=== PATIENT | male | born 1975 | race Caucasian/White ===

== ENCOUNTER 2024-02-11 20:05 | Emergency (ER) | payer MEDICARE, MEDICAID, SELFPAY ==
[2024-02-11 20:14] VITALS: BP 122/86; PULSE 109; TEMP 36.9; O2SAT 95; BMI 34.4
--- NOTE | 2024-02-11 20:26 | ED_ITS ---
HPI - Ear Problem General Chief complaint: Ear Stated complaint: ear pain Time Seen by Provider: 02/11/24 20:11 Source: patient Mode of arrival: walk-in Limitations: no limitations History of Present Illness HPI Narrative: 48-year-old male presents for a 1 to 2-day history of right ear pain. No drainage. He was swimming recently and then it started 1 or 2 days ago. No symptoms in the left ear and no fever or cough or sore throat. He is accompanied by caregiver who gives much of the history. Related Data Allergies Allergy/AdvReac Type Severity Reaction Status Date / Time Penicillins Allergy Mild Rash Verified 02/11/24 20:14 Sulfa (Sulfonamide Allergy Mild Rash Verified 02/11/24 20:14 Antibiotics) Review of Systems ROS Narrative A ten point review of systems is negative except as noted above. Exam Narrative Exam Narrative: Nurses note and vital signs reviewed and patient is not hypoxic. General: The patient appears well and in no apparent distress. Patient is resting comfortably on cart. Skin: Warm, dry, no pallor noted. There is no rash noted. Head: Normocephalic, atraumatic Eye: Normal conjunctiva, no drainage Ears, Nose, Mouth, and Throat: oral mucosa is moist. Nares patent. Left TM and external canal are normal. The right TM is normal but the external canal is swollen with drainage Cardiovascular: Regular Rate and Rhythm Respiratory: Patient is in no distress, no accessory muscle use, lungs are clear to auscultation, no wheezing, rales or rhonchi Back: non-tender GI: Soft and nontender Musculoskeletal: No joint swelling Neurological: Awake and alert Psychiatric: Cooperative Constitutional Vital Signs, click to edit/add: Last Vital Signs Temp 98.4 F 02/11/24 20:14 Pulse 109 H 02/11/24 20:14 Resp 16 02/11/24 20:14 BP 122/86 02/11/24 20:14 Pulse Ox 95 02/11/24 20:14 Course Vital Signs Vital signs: Vital Signs Temperature 98.4 F 02/11/24 20:14 Pulse Rate 109 H 02/11/24 20:14 Respiratory Rate 16 02/11/24 20:14 Blood Pressure 122/86 02/11/24 20:14 Pulse Oximetry 95 02/11/24 20:14 Temperature 98.4 F 02/11/24 20:14 Pulse Rate 109 H 02/11/24 20:14 Respiratory Rate 16 02/11/24 20:14 Blood Pressure 122/86 02/11/24 20:14 Pulse Oximetry 95 02/11/24 20:14 Medical Decision Making MDM Narrative Medical decision making narrative: My clinical impression is that he has otitis externa. He was dispensed Cortisporin. Findings are discussed with the patient and his caregiver. Differential Diagnosis Differential Diagnosis: Otitis externa otitis media Discharge Plan Discharge Stand Alone Forms: Portal Instructions Chief Complaint: Ear Clinical Impression: Otitis externa Patient Disposition: Home, Self-Care Time of Disposition Decision: 20:23 Condition: Good Mode of Transportation: Private Vehicle Print Language: Kiswahili Instructions: Swimmer's Ear (ED) Additional Instructions: Cortisporin dispensed from the hospital. 3 drops into right ear 3 times a day. Referrals: Physician,Non-Staff, MD [Primary Care Provider] - 1 week
[2024-02-11] MEDS: NEOMYCIN/POLYMYXIN B/HYDROCORTISONE OTIC SOLUTION 200 DROP/10 ML BOTTLE OT (20:34)
== END 2024-02-11 20:38 | disposition home or self-care (01) ==
PROVIDERS: Emergency Provider Emergency Medicine
DX: H60.91 Unspecified otitis externa, right ear (principal)
CPT/HCPCS: 99282

== ENCOUNTER 2024-08-22 17:22 | Emergency (ER) | payer MEDICARE, MEDICAID, SELFPAY ==
[2024-08-22 17:31] VITALS: BP 116/88; PULSE 88; TEMP 36.6; O2SAT 98; BMI 31.1
--- NOTE | 2024-08-22 17:48 | ECG_ITS ---
The [facility] Test Date: 2024-08-22 Pat Name: LAXMI TORRES Department: Room: - Gender: Male [employer]: : 1975 Requested By: Order Number: [id number] Reading MD: TARA JIMENEZ Measurements Intervals [place] Rate: 100 P: 35 NC: 206 QRS: 82 QRSD: 98 T: -13 QT: 332 QTc: 389 Interpretive Statements 1120 Sinus tachycardia 2440 Incomplete right bundle branch block [address] depression 7500 Abnormal QRS-T angle 8102 Low QRS voltage in chest leads 9150 abnormal ECG No previous ECG available for comparison Electronically Signed On 08-23-2024 7:40:44 EST by TARA JIMENEZ
--- NOTE | 2024-08-22 17:48 | XR_ITS ---
The [address] [address] Patient Name: LAXMI TORRES MRN: [id number] date: 1975 Sex: M Assigned Patient Location: ED.MAIN Current Patient Location: Accession/Order Number: [id number] Exam Date: 08/22/2024 18:19 Report Date: 08/22/2024 19:39 At the request of: SALMA CORNEJO Procedure: XR shoulder LT min 2V PROCEDURE: XR shoulder LT min 2V HISTORY: pain to left shoulder COMPARISON: None. FINDINGS: BONES:No fracture, acute abnormality, or significant arthropathy. SOFT TISSUES:No visible soft tissue swelling. EFFUSION:None visible. OTHER: Negative. XR/XR shoulder LT min 2V IMPRESSION: 1. No acute bone abnormality or significant degenerative changes. Electronically authenticated by: DIONNE SMITH Date: 08/22/2024 19:39
[2024-08-22 17:54] VITALS: PULSE 105
--- NOTE | 2024-08-22 18:20 | ED_ITS ---
HPI HPI - Extremity Injury (Upper) General Chief Complaint: Extremity Injury, Upper Stated Complaint: Upper Pain Time Seen by Provider: 08/22/24 18:10 Source: patient Mode of arrival: ambulance Limitations: no limitations History of Present Illness HPI narrative: 48-year-old male presents to the ER for evaluation of left shoulder pain pain present for 3 days he feels like it is into the bone. He denies any fevers or chills and there is been no recent injury reported. Patient lives in [place] with a roommate he denies any injury he has a care provider with him today at the bedside. MD complaint: injury to: Reports left and shoulder Other Extremity Injury: Left: shoulder Other injuries: Reports none Hand dominance: right Place: Reports home Severity: moderate Relieving factors: Reports none Exacerbating factors: Reports movement of extremity Associated symptoms: Reports denies other symptoms Related Data Home Medications ?Medication ?Instructions ?Recorded ?Confirmed aspirin 81 mg tablet,delayed 81 mg PO DAILY 02/11/24 02/11/24 release benztropine 1 mg tablet 1 mg PO BID 02/11/24 02/11/24 cetirizine 10 mg tablet 10 mg PO DAILY 02/11/24 02/11/24 divalproex 500 mg tablet,delayed 500 mg PO Q12H 02/11/24 02/11/24 release fenofibrate 54 mg tablet 54 mg PO DAILY 02/11/24 02/11/24 fluticasone propionate 50 2 spray intranasal DAILY 02/11/24 02/11/24 mcg/actuation nasal spray,suspension gabapentin 600 mg tablet 600 mg PO Q8H 02/11/24 02/11/24 metformin 500 mg tablet,extended 500 mg PO BID 02/11/24 02/11/24 release 24 hr metoprolol succinate 50 mg 75 mg PO DAILY 02/11/24 02/11/24 tablet,extended release 24 hr montelukast 10 mg tablet 10 mg PO . 02/11/24 02/11/24 omeprazole 20 mg capsule,delayed 20 mg PO BID 02/11/24 02/11/24 release paliperidone 3 mg tablet,extended 3 mg PO DAILY 02/11/24 02/11/24 release 24 hr quetiapine 25 mg tablet 50 mg PO .hs 02/11/24 02/11/24 quetiapine 300 mg tablet 300 mg PO . 02/11/24 02/11/24 sertraline 100 mg tablet 100 mg PO DAILY 02/11/24 02/11/24 simvastatin 20 mg tablet 20 mg PO . 02/11/24 02/11/24 Previous Rx's ?Medication ?Instructions ?Recorded methylprednisolone 4 mg tablets in 4 mg PO DAILY #21 ea 08/22/24 a dose pack (Medrol (Oli)) Allergies Allergy/AdvReac Type Severity Reaction Status Date / Time Penicillins Allergy Mild Rash Verified 02/11/24 20:14 Sulfa (Sulfonamide Allergy Mild Rash Verified 02/11/24 20:14 Antibiotics) Opioid HPI Opioid Management Most Recent Pain and Opioid Data: Last Pain Scale 7 08/22/24 17:54 08/22/24 Last ED Pain Assessment 08/22/24 17:54 Review of Systems ROS Constitutional Denies: fever or chills Eyes Denies: change in vision Ears, nose, mouth, and throat Denies: throat pain or neck pain Cardiovascular Denies: chest pain Respiratory Denies: shortness of breath Gastrointestinal Denies: abdominal pain Musculoskeletal Reports: joint pain (left shoulder) Neurological Denies: headache Hematologic/Lymphatic Denies: easy bruising PFSH PFSH Social History Little interest or pleasure in doing things: not at all Feeling down, depressed, or hopeless: not at all Exam Narrative Exam Narrative: Nurse's notes and vital signs reviewed. Patient is not hypoxic. General: The patient appears well and in no apparent distress. Patient is resting comfortably on cart. Skin: Warm, dry, no pallor noted. Head: Normocephalic, atraumatic Eye: Normal conjunctiva Respiratory: Patient is in no distress Musculoskeletal: The left shoulder shows no obvious deformity. There was no swelling noted. The patient had limited ROM due to pain. With pain localized to AC joint. The patient had tenderness noted at the AC joint and referred to lateral deltoid on abduction. The patient had no tenderness in the elbow, wrist or hand. + cross arm sign. Pulses are intact at brachial and radial 2+. There was no deficit at the elbow or wrist. The patient has normal capillary refill to all distal digits. The patient has no evidence of cyanosis or mottling. The patient is able to flex and extend all digits without difficulty. Full passive and active range of motion painful on end range of motion strength testing shows rotator cuff and deltoid 5/5 but pain present on loading Neurological: A&O x4, normal sensory, normal motor Psychiatric: Cooperative Constitutional Vital Signs, click to edit/add: Last Vital Signs Temp 97.8 F 08/22/24 17:31 Pulse 105 H 08/22/24 17:54 Resp 18 08/22/24 17:31 BP 116/88 08/22/24 17:31 Pulse Ox 98 08/22/24 17:31 O2 Del Method Room Air 08/22/24 17:31 Course Vital Signs Vital signs: Vital Signs Temperature 97.8 F 08/22/24 17:31 Pulse Rate 88 08/22/24 17:31 Respiratory Rate 18 08/22/24 17:31 Blood Pressure 116/88 08/22/24 17:31 Pulse Oximetry 98 08/22/24 17:31 Oxygen Delivery Method Room Air 08/22/24 17:31 Temperature 97.8 F 08/22/24 17:31 Pulse Rate 105 H 08/22/24 17:54 Respiratory Rate 18 08/22/24 17:31 Blood Pressure 116/88 08/22/24 17:31 Pulse Oximetry 98 08/22/24 17:31 Oxygen Delivery Method Room Air 08/22/24 17:31 MDM - Extremity Injury (Upper) MDM Narrative Medical decision making narrative: Presents with left shoulder pain denies injury x-ray discussed no evidence of fracture but mild to moderate AC joint arthritis noted mild impingement on exam with referred pain does not describe any cervical radicular symptoms patient agreeable to IM Toradol shot for inflammation, ice and will start a Medrol Dosepak outpatient pending follow-up with orthopedics if symptoms or not improving patient and care provider verbalized understanding of treatment plan and had no further concerns or questions The patient is to followup with primary care physician/ orthopedics in next 3-5 days or to return to the emergency department should any of the signs or symptoms worsen or new symptoms develop. Patient had questions answered. The patient agrees with the following Diagnosis and Treatment plan and the patient will be discharged home. ECG Data Attestation: I personally reviewed and interpreted this ECG as follows: Interpretation: EKG interpretation: Emergency Department physician interpretation, normal sinus rhythm 100bpm , no ectopy, no ST segment elevation, . incomplete right bundle branch block Discharge Plan Discharge Chief Complaint: Extremity Injury, Upper Clinical Impression: Acute pain of left shoulder, Arthritis of left acromioclavicular joint Patient Disposition: Home, Self-Care Time of Disposition Decision: 18:38 Condition: Good Prescriptions / Home Meds: New methylprednisolone [Medrol (Oli)] 4 mg tablets,dose pack 4 mg PO DAILY Qty: 21 0RF Rx Instructions: take as directed No Action aspirin 81 mg tablet,delayed release (DR/EC) 81 mg PO DAILY benztropine 1 mg tablet 1 mg PO BID cetirizine 10 mg tablet 10 mg PO DAILY divalproex 500 mg tablet,delayed release (DR/EC) 500 mg PO Q12H fenofibrate 54 mg tablet 54 mg PO DAILY fluticasone propionate 50 mcg/actuation spray,suspension 2 spray INTRANASAL DAILY gabapentin 600 mg tablet 600 mg PO Q8H metformin 500 mg tablet extended release 24 hr 500 mg PO BID metoprolol succinate 50 mg tablet extended release 24 hr 75 mg PO DAILY montelukast 10 mg tablet 10 mg PO .hs omeprazole 20 mg capsule,delayed release(DR/EC) 20 mg PO BID paliperidone 3 mg tablet extended release 24 hr 3 mg PO DAILY quetiapine 25 mg tablet 50 mg PO .hs quetiapine 300 mg tablet 300 mg PO .hs sertraline 100 mg tablet 100 mg PO DAILY simvastatin 20 mg tablet 20 mg PO .hs Print Language: Georgian Instructions: Shoulder Pain (ED) Additional Instructions: Recommend ice to left shoulder 20 minutes on 20 minutes off for 1 hour 3 times a day contact orthopedics if not improving with Medrol Dosepak for reevaluation Referrals: Reina Underwood ND [Primary Care Provider] - 1 week Krzysztof Yap MD [Physician] - As needed
[2024-08-22] MEDS: KETOROLAC TROMETHAMINE 60 MG/2 ML VIAL IM (19:05)
== END 2024-08-22 19:15 | disposition home or self-care (01) ==
PROVIDERS: Emergency Provider Emergency Medicine; PCP Student in an Organized Health Care Education/Training Program
DX: M19.012 Primary osteoarthritis, left shoulder (principal); M25.512 Pain in left shoulder
CPT/HCPCS: 73030; 93005; 96372; 99285; J1885

== ENCOUNTER 2024-09-25 19:33 | Emergency (ER) | payer MEDICARE, MEDICAID, SELFPAY ==
[2024-09-25 19:38] VITALS: BP 110/89; PULSE 103; TEMP 36.9; O2SAT 98; BMI 30.8
--- OUTSIDE RECORDS SUMMARY | 2024-09-25 19:39 | XMS_ITS | CCD ---
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 Name Role Phone Provider, None Unavailable Unavailable Carolyn Tipton Unavailable Unavailable Carolyn Tipton Unavailable Unavailable SHRADDHA HAWK Admitting Unavaila SHRADDHA Delatorre Attending Unavaila ARCELIA Mauricio Referring Unavailable [facility] Primary Care Unavailable SELF, REFERRED Referring Unavailable [facility] Primary Care Unavailable KATHERINE WHITTEN Admitting Unavailable KATHERINE WHITTEN Attending Unavailable SELF, REFERRED Referring Unavailable [facility] Primary Care Unavailable STEENHOFF, LAXMI Attending Unavailable STEENHOFF, LAXMI Admitting Unavailable SELF, REFERRED Referring Unavailable [facility] Primary Care Unavailable TITUS GARCIA Admitting Unavailable TITUS GARCIA Attending Unavailable SELF, REFERRED Referring Unavailable [facility] Primary Care Unavailable YORDAN CROWLEY Attending Unavailable STEENHOFF, LAXMI Admitting Unavailable [facility] Primary Care Unavailable [facility] Referring Unavailable Ovitt, Enedina Admitting Unavailable Ovitt, Enedina Attending Unavailable [facility] Primary Care Unavailable GLORIA WASHINGTON Attending Unavailable MISC, DR RIVERA Attending Unavailable MISC, DR RIVERA Consulting Unavailable MISC, DR RIVERA Primary Care Unavailable MISC, DR RIVERA Admitting Unavailable MISC, DR RIVERA Attending Unavailable MISC, DR RIVERA Consulting Unavailable MISC, DR RIEVRA Primary Care Unavailable MISC, DR RIVERA Admitting Unavailable MISC, DR RIVERA Primary Care Unavailable TYLOR BEST Attending Unavailable TYLOR BEST Consulting Unavailable TYLOR BEST Admitting Unavailable Kj Justin BAUTISTA Primary Care Provider OVITT, ENEDINA Referring Unavailable OVITT, ENEDINA Referring Unavailable OVITT, ENEDINA Referring Unavailable OVITT, ENEDINA Attending Unavailable FATUMA REESE Attending Unavailable DIONNE BARLOW Attending Unavailable ELHAM SHAFFER Attending Unavailable KJ, MUHAMID M Referring Unavailable KJ, MUHAMID M Primary Care Unavailable KJ, MUHAMID M Primary Care Unavailable EDY VALENZUELA Attending Unavailable KJ, MUHAMID M Primary Care Unavailable KJ, MUHAMID M Primary Care Unavailable KJ, MUHAMID M Attending Unavailable KJ, MUHAMID M Referring Unavailable KJ, MUHAMID M Primary Care Unavailable KJ, MUHAMID M Referring Unavailable KJ, MUHAMID M Primary Care Unavailable KJ, MUHAMID M Attending Unavailable KJ, MUHAMID M Referring Unavailable KJ, MUHAMID M Primary Care Unavailable KJ, MUHAMID M Attending Unavailable KJ, MUHAMID M Referring Unavailable KJ, MUHAMID M Primary Care Unavailable KJ, MUHAMID M Attending Unavailable KJ, MUHAMID M Referring Unavailable KJ, MUHAMID M Primary Care Unavailable Kj Justin BAUTISTA Primary Care Provider [phone] Kj Justin BAUTISTA Primary Care Provider [phone] GUILLAUME STEVE Attending Unavailable KJ, MUHAMID M Referring Unavailable KJ, MUHAMID M Primary Care Unavailable KJ, MUHAMID M Primary Care Unavailable LETICIA JARAMILLO Attending Unavailable GUILLAUME STEVE Attending Unavailable KJ, MUHAMID M Referring Unavailable KJ, MUHAMID M Primary Care Unavailable MAXINE PATEL Attending Unavailable KJ, MUHAMID M Referring Unavailable KJ, MUHAMID M Primary Care Unavailable GUILLAUME STEVE Attending Unavailable KJ, MUHAMID M Referring Unavailable KJ, MUHAMID M Primary Care Unavailable KJ, MUHAMID M Primary Care Unavailable TITUS PRITCHETT Attending Unavailable TITUS PRITCHETT Referring Unavailable KJ, MUHAMID M Primary Care Unavailable TITUS PRITCHETT Admitting Unavailable TITUS PRITCHETT Attending Unavailable KJ, MUHAMID M Referring Unavailable FLORY YEBOAH Attending Unavailable KJ, MUHAMID M Primary Care Unavailable GUILLAUME STEVE Attending Unavailable KJ, MUHAMID M Referring Unavailable KJ, MUHAMID M Primary Care Unavailable KJ, MUHAMID M Primary Care Unavailable MARY FULTON Attending Unavailable MARY FULTON Attending Unavailable MARY FULTON Referring Unavailable KJ, MUHAMID M Primary Care Unavailable TITUS PRITCHETT Referring Unavailable KJ, MUHAMID M Primary Care Unavailable TITUS PRITCHETT Referring Unavailable KJ, MUHAMID M Primary Care Unavailable TITUS PRITCHETT Referring Unavailable KJ, MUHAMID M Primary Care Unavailable TITUS PRITCHETT Admitting Unavailable TITUS PRITCHETT Attending Unavailable KJ, MUHAMID M Primary Care Unavailable GUILLAUME STEVE Attending Unavailable KJ, MUHAMID M Referring Unavailable KJ, MUHAMID M Primary Care Unavailable CINDA STEVE Attending Unavailable KJ, MUHAMID M Referring Unavailable KJ, MUHAMID M Primary Care Unavailable CINDA STEVE Attending Unavailable KJ, MUHAMID M Referring Unavailable KJ, MUHAMID M Primary Care Unavailable KJ, MUHAMID M Referring Unavailable KJ, MUHAMID M Primary Care Unavailable ANH BOTELLO Referring Unavailable KJ, MUHAMID M Primary Care Unavailable TITUS PRITCHETT Admitting Unavailable TITUS PRITCHETT Attending Unavailable KJ, MUHAMID M Primary Care Unavailable TITUS PRITCHETT Attending Unavailable TITUS PRITCHETT Referring Unavailable KJ, MUHAMID M Primary Care Unavailable MITCHELL PERALES Attending Unavailable KJ, MUHAMID M Primary Care Unavailable MYLA RM Attending Unavailable KJ, MUHAMID M Referring Unavailable KJ, MUHAMID M Primary Care Unavailable MYLA RM Referring Unavailable KJ, MUHAMID M Primary Care Unavailable GUNNAR CORRALES Referring Unavailable KJ, MUHAMID M Primary Care Unavailable GUILLAUME STEVE Attending Unavailable KJ, MUHAMID M Referring Unavailable KJ, MUHAMID M Primary Care Unavailable MYLA RM Referring Unavailable KJ, MUHAMID M Primary Care Unavailable Allergies Allergy Classification Reported Allergen(s) Allergy Type Date of Onset Reaction(s) Facility (20 sources) Penicillins; Translations: [penicillins] Propensity to adverse reactions to drug (disorder) 0 Hives, Other, Unknown [facility] Repository (1 source) Sulfonamides (Antibiotic); Translations: [sulfa drugs] Propensity to adverse reactions to drug (disorder) [facility] Repository (20 sources) Sulfonamides (Antibiotic); Translations: [Sulfa (Sulfonamide Antibiotics)] Propensity to adverse reactions (disorder) 0 [facility] (1 source) Sulfonamides (Antibiotic) Drug Allergy 4 [facility] Medications Current Medications Medication Drug Class(es) Dates Sig (Normalized) Sig (Original) acetaminophen 500 mg oral tablet (20 sources) Start: 11-06-2023 End: 11-06-2023 take 1 tablet by mouth every six hours as needed for pain and headache acetaminophen (TYLENOL EXTRA STRENGTH) 500 mg tablet Take 1 tablet (500 mg total) by mouth every 6 (six) hours as needed for pain or headaches. 90 tablet 2 11/06/2023 Active take 1 tablet by castillo th every six hours as needed for pain and headache acetaminophen (TYLENOL) 500 mg tablet Ta ke 1 tablet (500 mg total) by mouth every 6 (six) hours as needed for pain or headaches. Active [id number] 200 actuat albuterol 0.09 mg/actuat metered dose inhaler (20 sources) beta2-Adrenergic Agonist Start: 01-25-2024 take 2 puff(s) by inhalation every six hours as needed for wheezing albuterol (PROVENTIL HFA;VENTOLIN HFA) 90 mcg/actuation inhaler Inhale 2 puffs every 6 (six) hours as needed for wheezing. 18 g 2 01/25/2024 Active Start: 10-08-2023 albuterol (PRO VENTIL,VENTOLIN) 2.5 mg /3 mL (0.083 %) nebulizer solution 10/08/2023 Active End: 01-24-2024 take 2 puff(s) by inhalation every six hours as needed for wheezing albuterol (PROVENTIL HFA;VENTOLIN HFA) 90 mcg/actuation inhaler Inhale 2 puffs every 6 (six) hours as needed for wheezing. 01/24/2024 Discontinued (Reorder) ALPRAZolam 0.5 mg oral tablet (20 sources) Benzodiazepine Start: 08-23-2023 ALPRAZolam (XANAX) 0.5 mg tablet Indications: Anxiety attack Take 1 tablet (0.5 mg total) by mouth once as needed for sleep (MRI/claustrophobia anxiety management) for up to 2 doses. May repeat in 1 mins if needed 2 tablet 08/23/2023 Active aspirin 81 mg delayed release oral tablet (20 sources) Platelet Aggregation Inhibitor, Nonsteroidal Anti-inflammatory Drug Start: 08-23-2023 End: 04-07-2024 take 1 tablet by mouth every week in the morning aspirin 81 mg Take 1 tablet (81 mg total) by mouth in the morning. Hold 1 week prior to surgery scheduled on 03/11/2023 per cardiology. 90 tablet 2 04/07/2024 Active benztropine mesylate 1 mg oral tablet (20 sources) Anticholinergic, Antihistamine Start: 07-29-2023 End: 08-15-2023 take 1 tablet by mouth in the morning, then take 1 tablet by mouth at bedtime benztropine (COGENTIN) 1 mg tablet Take 1 tablet (1 mg total) by mouth in the morning and 1 tablet (1 mg total) before bedtime. 180 tablet 3 08/15/2023 Active Start: 04-19-2023 End: 07-27-2023 take 1 tablet by mouth in the morning, then take 1 tablet by mouth at bedtime benztropine (COGENTIN) 1 mg tablet Take 1 tablet (1 mg total) by mouth in the morning and 1 tablet (1 mg total) before bedtime. 180 tablet 3 04/19/2023 07/27/2023 Discontinued (Reorder) bismuth subsalicylate 17.5 mg/ml oral suspension (20 sources) Bismuth Start: 04-19-2023 End: 05-11-2024 take 15 mL by mouth every six hours as needed for gastroesophageal reflux disease bismuth subsalicylate (PEPTO BISMOL) 262 mg/15 mL suspension Take 15 mL by mouth every 6 (six) hours as needed for indigestion or heartburn. 360 mL 2 05/11/2024 Active calcium carbonate 500 mg chewable tablet (20 sources) Start: 04-19-2023 End: 09-07-2024 calcium carbonate (TUMS) 200 mg elemental (500 mg) chewable tablet Chew 1 tablet (200 mg total) and swallow in the morning. 90 tablet 3 09/07/2024 Active Calcium Carbonate Antacid (CALCIUM CARBONATE PO) (1 source) Calcium Carbonat e Antacid (CALCIUM CARBONATE PO) Take by mouth 0 Active cetirizine hydrochloride 10 mg oral tablet (20 sources) Histamine-1 Receptor Antagonist Start: 07-29-2023 End: 07-24-2024 take 1 tablet by mouth in the morning cetirizine (ZyrTEC) 10 mg tablet Take 1 tablet (10 mg total) by mouth in the morning. 90 tablet 3 07/24/2024 Active Start: 04-19-2023 End: 07-27-2023 take 1 tablet by mouth in the morning cetirizine (ZyrTEC) 10 mg tablet Take 1 tablet (10 mg total) by mouth in the morning. 90 tablet 3 04/19/2023 07/27/2023 Discontinued (Reorder) cocoa butter 0.884 mg/mg / phenylephrine hydrochloride 0.0025 mg/mg rectal suppository (9 sources) alpha-1 Adrenergic Agonist Start: 06-30-2024 phenylephrine HCl-cocoa butter (PREPARATION H,PE,CB,) 0.25-88.44 % suppository Insert 1 suppository into the rectum every 6 (six) hours as needed (rectal pain or hemorrhoid bleeding). 24 suppository 06/30/2024 Active diphenhydrAMINE hydrochloride 25 mg oral capsule (20 sources) Histamine-1 Receptor Antagonist Start: 05-08-2023 End: 03-09-2024 take 1 capsule by mouth every six hours as needed for headache diphenhydrAMINE (BENADRYL) 25 mg capsule Indications: Primary cough headache Take 1 capsule (25 mg total) by mouth every 6 (six) hours as needed for sleep (headache). 30 capsule 03/09/2024 Active diphenhydrAMINE (BENADryl) 25 MG tablet Take 25 mg by mouth 0 Active docusate sodium 100 mg oral capsule (20 sources) take 1 capsule by mouth once daily as needed for constipation docusate sodium (COLACE) 100 mg capsule Take 1 capsule (100 mg total) by mouth daily as needed for constipation. Active fenofibrate 54 mg oral tablet (20 sources) Peroxisome Proliferator Receptor alpha Agonist Start: 2023 End: 2023 take 1 tablet by mouth in the morning fenofibrate (LOFIBRA) 54 mg tablet Indications: Hypertriglyceridemia Take 1 tablet (54 mg total) by mouth in the morning. 30 tablet 5 06/12/2024 Active fluticasone propionate 0.05 mg/actuat metered dose nasal spray (20 sources) Corticosteroid Start: 2022 End: 2024 take 2 spray(s) nasal route in the morning fluticasone propionate (FLONASE) 50 mcg/actuation nasal spray Indications: allergic conjunctivitis , allergic rhinitis Administer 2 sprays into each nostril in the morning. Indications: allergic conjunctivitis, inflammation of the nose due to an allergy. 15.8 mL 2 09/07/2024 Active fluticasone (Wiliam nase) 50 MCG/ACT nasal spray 1 (one) time each day at the same time 0 Active gabapentin 600 mg oral tablet (20 sources) Anti-epileptic Agent Start: 12-19-2023 End: 07-28-2024 take 1 tablet by mouth in the morning, then take 1 tablet by mouth at bedtime gabapentin (NEURONTIN) 600 mg tablet Indications: Disc displacement, lumbar Take 1 tablet (600 mg total) by mouth in the morning and 1 tablet (600 mg total) before bedtime. 60 tablet 06/23/2024 Active Start: 07-29-2023 End: 12-11-2023 take 1 tablet by mouth three times daily gabapentin (NEURONTIN) 600 mg tablet Indications: Disc displacement, lumbar Take 1 tablet (600 mg total) by mouth 3 (three) times a day. 90 tablet 10/24/2023 Active Start: 06-26-2023 End: 07-27-2023 take 1 tablet by mouth three times daily gabapentin (NEURONTIN) 600 mg tablet Indications: Disc displacement, lumbar Take 1 tablet (600 mg total) by mouth 3 (three) times a day. 90 tablet 0 06/26/2023 07/27/2023 Discontinued (Reorder) ketoconazole 20 mg/ml medicated shampoo (20 sources) Azole Antifungal ketoconazole (NIZORAL) 2 % shampoo Apply 1 Application topically 2 (two) times a week. Apply to damp skin, lather, leave on 5 minutes, and rinse Active levoFLOXacin 500 mg oral tablet (3 sources) Quinolone Antimicrobial Start: 08-07-19 End: 08-12-19 take 1 tablet by mouth in the morning, then take 1 tablet by mouth at bedtime levoFLOXacin (LEVAQUIN) 500 mg tablet Take 1 tablet (500 mg total) by mouth in the morning and 1 tablet (500 mg total) before bedtime. Do all this for 5 days. 10 tablet 08/07/2024 08/12/2024 Active Start: 04-10-2024 End: 04-15-2024 take 1 tablet by mouth in the morning, then take 1 tablet by mouth at bedtime levoFLOXacin (LEVAQUIN) 500 mg tablet Indications: Prophylactic antibiotic Take 1 tablet (500 mg total) by mouth in the morning and 1 tablet (500 mg total) before bedtime. Do all this for 5 days. 10 tablet 04/10/2024 04/15/2024 Active 3 ml liraglutide 6 mg/ml pen injector (20 sources) GLP-1 Receptor Agonist Start: 08-15-2023 Victoza 18 MG/3ML injection Start: 07-29-2023 End: 06-29-2024 liraglutide (VICTOZA 3-NITESH) 0.6 mg/0.1 mL (18 mg/3 mL) pen injector Indications: Type 2 diabetes mellitus without complication, without long-term current use of insulin ([facility]) Inject 0.3 mL (1.8 mg total) under the skin in the morning. 9 mL 3 06/29/2024 Active Start: 06-26-2023 End: 07-27-2023 liraglutide (VICTOZA 3-NITESH) 0.6 mg/0.1 mL (18 mg/3 mL) pen injector Indications: Type 2 diabetes mellitus without complication, without long-term current use of insulin ([facility]) Inject 0.3 mL (1.8 mg total) under the skin in the morning. 9 mL 3 06/26/2023 07/27/2023 Discontinued (Reorder) meclizine hydrochloride 25 mg chewable tablet (20 sources) Antiemetic meclizine (ANTIV ERT) 25 mg tablet Chew 1 tablet (25 mg total) and swallow 3 (three) times a day as needed for dizziness. Active Melatonin (20 sources) melatonin 1 mg tablet,chewable Chew and swallow as needed. Active 24 hr metFORMIN hydrochloride 500 mg extended release oral tablet (20 sources) Biguanide Start: 10-24-2023 End: 10-23-2023 take 1 tablet by mouth every twenty-four hours in the morning, then take 1 tablet by mouth at bedtime metFORMIN XR (GLUCOPHAGE XR) 500 mg 24 hr tablet Take 1 tablet (500 mg total) by mouth in the morning and 1 tablet (500 mg total) before bedtime. 180 tablet 3 10/24/2023 Active Start: 10-24-2023 take 1 tablet by castillo th every twenty-four hours in the morning, then take 1 tablet by mouth at bedtime metFORMIN XR (GLUCOPHAGE XR) 500 mg 24 hr tablet Take 1 tablet (500 mg total) by mouth in the morning and 1 tablet (500 mg total) before bedtime. 180 tablet 3 10/24/2023 Active methocarbamol 500 mg oral tablet (20 sources) Muscle Relaxant Start: 07-29-2023 End: 08-15-2023 methocarbamoL (ROBAXIN) 500 mg tablet Take 1 tablet (500 mg total) by mouth as needed for muscle spasms. Unsure on dose 90 tablet 2 08/15/2023 Active Start: 04-19-2023 End: 07-27-2023 methocarbamoL (ROBAXIN) 500 mg tablet Take 1 tablet (500 mg total) by mouth as needed for muscle spasms. Unsure on dose 90 tablet 2 04/19/2023 07/27/2023 Discontinued (Reorder) metoprolol tartrate 25 mg oral tablet (20 sources) beta-Adrenergic Simeon Start: 06-05-2023 metopr olol tartrate (LOPRESSOR) 25 mg tablet Indications: Exertional angina (CMS-HCC) Take 1 tablet 12 hours and 1 tablet 2 hours prior to the scheduled CT scan. Take additional 2 tablets with you to CT scan in case needed 4 tablet 06/05/2023 Active take 1.5 tablets by mouth every twenty-four hours in the morning metoprolol succinate XL (TOPROL XL) 50 m g 24 hr tablet Take 1.5 tablets (75 mg total) by mouth in the morning. Active take 1 tablet by castillo th every twenty-four hours in the morning metoprolol succinate XL (TOPROL XL) 50 m g 24 hr tablet Take 1 tablet (50 mg total) by mouth in the morning. Active montelukast 10 mg oral tablet (20 sources) Leukotriene Receptor Antagonist Start: 07-29-2023 End: 06-23-2024 take 1 tablet by mouth once daily montelukast (SINGULAIR) 10 mg tablet Take 1 tablet (10 mg total) by mouth nightly. 90 tablet 06/23/2024 Active Start: 04-19-2023 End: 07-27-2023 take 1 tablet by mouth once daily montelukast (SINGULAIR) 10 mg tablet Take 1 tablet (10 mg total) by mouth nightly. 90 tablet 0 04/19/2023 07/27/2023 Discontinued (Reorder) naproxen 500 mg oral tablet (20 sources) Nonsteroidal Anti-inflammatory Drug Start: 08-17-2023 take 1 tablet by mouth in the morning, then take 1 tablet by mouth at mealtime naproxen (NAPROSYN) 500 mg tablet Take 1 tablet (500 mg total) by mouth in the morning and 1 tablet (500 mg total) in the evening. Take with meals. 30 tablet 08/17/2023 Active omeprazole 20 mg delayed release oral capsule (20 sources) Proton Pump Inhibitor Start: 07-29-2023 End: 04-28-2024 take 1 capsule by mouth twice daily as needed for pain omeprazole (PriLOSEC) 20 mg capsule Take 1 capsule (20 mg total) by mouth 2 (two) times a day as needed (pain). 90 capsule 2 04/28/2024 Active Start: 04-19-2023 End: 07-27-2023 take 1 capsule by mouth in the morning omeprazole (PriLOSEC) 20 mg capsule Take 1 capsule (20 mg total) by mouth in the morning. 90 capsule 0 04/19/2023 07/27/2023 Discontinued (Reorder) omeprazole (PriL OSEC) [address] capsule 20 mg 1 (one) time each day at the same time 0 Active ondansetron 4 mg disintegrating oral tablet (20 sources) Serotonin-3 Receptor Antagonist Start: 03-26-2024 take 1 tablet by mouth every eight hours as needed for nausea and vomiting ondansetron ODT (ZOFRAN ODT) 4 mg disintegrating tablet Dissolve 1 tablet (4 mg total) on tongue every 8 (eight) hours as needed for nausea or vomiting for up to 10 doses. 10 tablet 03/26/2024 Active Start: 07-29-2023 End: 03-26-2024 ondansetron ODT (ZOFRAN ODT) 4 mg disintegrating tablet Dissolve 1 tablet (4 mg total) on tongue 3 (three) times a day as needed for nausea for up to 3 doses. 3 tablet 08/15/2023 03/26/2024 Discontinued Start: 04-19-2023 End: 07-27-2023 ondansetron ODT (ZOFRAN ODT) 4 mg disintegrating tablet Dissolve 1 tablet (4 mg total) on tongue 3 (three) times a day as needed for nausea for up to 3 doses. 3 tablet 0 04/19/2023 07/27/2023 Discontinued (Reorder) 24 hr paliperidone 3 mg extended release oral tablet (20 sources) Atypical Antipsychotic Start: 07-29-2023 End: 07-30-2024 take 1 tablet by mouth once daily paliperidone (INVEGA) 3 mg 24 hr tablet Take 1 tablet (3 mg total) by mouth nightly. 90 tablet 10/24/2023 Active Start: 04-19-2023 End: 07-27-2023 take 1 tablet by mouth once daily paliperidone (INVEGA) 3 mg 24 hr tablet Take 1 tablet (3 mg total) by mouth nightly. 90 tablet 0 04/19/2023 07/27/2023 Discontinued (Reorder) QUEtiapine 50 mg oral tablet (20 sources) Atypical Antipsychotic Start: 08-23-2023 End: 08-22-2023 take 1 tablet by mouth once daily QUEtiapine (SEROquel) 50 mg tablet Take 1 tablet (50 mg total) by mouth nightly. 90 tablet 08/23/2023 Active Start: 08-23-2023 End: 08-22-2023 take 1 tablet by mouth once daily QUEtiapine (SEROquel) 50 mg tablet Take 1 tablet (50 mg total) by mouth nightly. 90 tablet 08/23/2023 Active Start: 08-23-2023 take 1 tablet by castillo th once daily QUEtiapine (SEROquel) 50 mg tablet Take 1 tablet (50 mg total) by mouth nightly. 90 tablet 08/23/2023 Active Start: 07-29-2023 End: 08-15-2023 take 1 tablet by mouth once daily QUEtiapine (SEROquel) 300 mg tablet Take 1 tablet (300 mg total) by mouth nightly. Takes with 25mg tablet 90 tablet 08/15/2023 Active Start: 04-19-2023 End: 07-27-2023 take 1 tablet by mouth once daily QUEtiapine (SEROquel) 300 mg tablet Take 1 tablet (300 mg total) by mouth nightly. Takes with 25mg tablet 90 tablet 0 04/19/2023 07/27/2023 Discontinued (Reorder) sertraline 100 mg oral tablet (20 sources) Serotonin Reuptake Inhibitor Start: 07-29-2023 End: 10-23-2023 take 1 tablet by mouth in the morning sertraline (ZOLOFT) 100 mg tablet Take 1 tablet (100 mg total) by mouth in the morning. 90 tablet 10/24/2023 Active Start: 04-19-2023 End: 07-27-2023 take 1 tablet by mouth in the morning sertraline (ZOLOFT) 100 mg tablet Take 1 tablet (100 mg total) by mouth in the morning. 90 tablet 0 04/19/2023 07/27/2023 Discontinued (Reorder) simvastatin 20 mg oral tablet (20 sources) HMG-CoA Reductase Inhibitor Start: 07-29-2023 End: 11-20-2023 take 1 tablet by mouth once daily simvastatin (ZOCOR) 20 mg tablet Take 1 tablet (20 mg total) by mouth nightly for 90 days. 90 tablet 1 08/22/2023 11/20/2023 Active Start: 04-29-2023 End: 07-27-2023 take 1 tablet by mouth once daily simvastatin (ZOCOR) 20 mg tablet Take 1 tablet (20 mg total) by mouth nightly for 90 days. 90 tablet 0 04/29/2023 07/27/2023 Discontinued (Reorder) sod denex-zheyxo-mnijld bottle (NEILMED SINUS RINSE COMPLETE) packet with rinse device nasal solution (10 sources) Start: 07-30-2022 take 1 dose nasal route in the morning sod poalk-mzwebq-djzbvs bottle (NEILMED SINUS RINSE COMPLETE) packet with rinse device nasal solution Indications: Other chronic sinusitis Administer 1 packet into each nostril in the morning and 1 packet before bedtime. 60 packet 0 07/30/2022 Active traZODone hydrochloride 50 mg oral tablet (8 sources) Serotonin Reuptake Inhibitor Start: 07-07-2024 take 1 tablet by mouth once daily traZODone (DESYREL) 50 mg tablet Take 1 tablet (50 mg total) by mouth nightly. 07/07/2024 Active divalproex sodium 500 mg delayed release oral tablet (20 sources) Mood Stabilizer, Anti-epilepti c Agent Start: 07-29-2023 End: 08-15-2023 take 1 tablet by mouth in the morning, then take 1 tablet by mouth at bedtime divalproex (DEPAKOTE) 500 mg EC tablet Take 1 tablet (500 mg total) by mouth in the morning and 1 tablet (500 mg total) before bedtime. 90 tablet 3 08/15/2023 Active Start: 04-19-2023 End: 07-27-2023 take 1 tablet by mouth in the morning, then take 1 tablet by mouth at bedtime divalproex (DEPAKOTE) 500 mg EC tablet Take 1 tablet (500 mg total) by mouth in the morning and 1 tablet (500 mg total) before bedtime. 90 tablet 3 04/19/2023 07/27/2023 Discontinued (Reorder) Completed/Discontinued Medications Medication Drug Class(es) Dates Sig (Normalized) Sig (Original) chlorhexidine gluconate 1.2 mg/ml mouthwash (2 sources) Start: 4 End: 4 take 15 mL by mouth in the morning chlorhexidine (PERIDEX) 0.12 % solution Apply 15 mL to the mouth or throat in the morning and 15 mL before bedtime. Do all this for 7 days. 120 mL 0 07/22/2023 07/29/2023 clindamycin 300 mg oral capsule (2 sources) Lincosamide Antibacterial Start: 4 End: 4 take 1 capsule by mouth every six hours clindamycin (CLEOCIN) 300 mg capsule Take 1 capsule (300 mg total) by mouth every 6 (six) hours for 7 days. 28 capsule 0 07/22/2023 07/29/2023 doxycycline hyclate 100 mg oral capsule (1 source) Tetracycline-class Drug Start: 5 End: take 1 capsule by mouth in the morning doxycycline (VIBRAMYCIN) 100 mg capsule Take 1 capsule (100 mg total) by mouth in the morning. 09/03/2024 09/13/2024 methylPREDNISolone (20 sources) Corticosteroid Start: End: methylPREDNISolone (MEDROL, NITESH,) 4 mg tablet follow package directions 21 tablet 10/13/2023 04/07/2024 Discontinued (Therapy completed) Start: 10-13-2023 methylPREDNISo lone (MEDROL, NITESH,) 4 mg tablet follow package directions 21 tablet 10/13/2023 Active Start: 10-13-2023 methylPREDNISo lone (MEDROL, NITESH,) 4 mg tablet follow package directions 21 tablet 0 10/13/2023 Active nitrofurantoin, macrocrystals 25 mg / nitrofurantoin, monohydrate 75 mg oral capsule (3 sources) Nitrofuran Antibacterial Start: 04-02-2024 End: 04-07-2024 take 1 capsule by mouth in the morning, then take 1 capsule by mouth at bedtime nitrofurantoin, macrocrystal-monohydrate, (MACROBID) 100 mg capsule Indications: Dysuria Take 1 capsule (100 mg total) by mouth in the morning and 1 capsule (100 mg total) before bedtime. Do all this for 5 days. 10 capsule 04/02/2024 04/07/2024 Discontinued (Therapy completed) Problems Active Problems Problem Classification Problem Date Documented Date Episodic/Chronic Acute and chronic tonsillitis (20 sources) Chronic tonsillitis; Translations: [Chronic tonsillitis] Onset: 07-30-2022 07-30-2022 Chronic Anxiety disorders (20 sources) Anxiety state; Translations: [Generalized anxiety disorder] Onset: 07-02-2011 08-12-2020 Chronic Developmental disorders (20 sources) Mild intellectual disabilities; Translations: [Intellectual functioning disability ] Onset: 07-02-2011 03-04-2023 Chronic Diabetes mellitus without complication (20 sources) Type 2 diabetes mellitus without complications; Translations: [Type 2 diabetes mellitus without complication] Onset: 11-10-2022 Chronic Diseases of white blood cells (20 sources) Leukopenia; Translations: [Decreased white blood cell count, unspecified] Onset: 03-04-2023 03-04-2023 Chronic Disorders of lipid metabolism (20 sources) Mixed hyperlipidemia; Translations: [Pure hyperglyceridemia] Onset: 08-12-2020 08-12-2020 Chronic Disorders of teeth and jaw (4 sources) Other specified disorders of teeth and supporting structures; Translations: [Periapical abscess without sinus] Onset: 07-22-2023 Episodic Epilepsy; convulsions (20 sources) Epilepsy, unspecified, not intractable, without status epilepticus; Translations: [Seizure disorder] Onset: 07-02-2011 08-12-2020 Chronic Esophageal disorders (1 source) Gastroesophageal reflux disease; Translations: [Gastro-esophageal reflux disease without esophagitis] 09-07-2024 Chronic Essential hypertension (20 sources) Essential (primary) hypertension; Translations: [Hypertensive disorder] Onset: 08-12-2020 Chronic Headache; including migraine (1 source) Episodic tension-type headache; Translations: [Episodic tension-type headache, not intractable] 03-09-2024 Chronic Immunizations and screening for infectious disease (2 sources) Encounter for immunization; Translations: [Patient encounter status] Onset: 05-11-2024 05-11-2024 Episodic Impulse control disorders, NEC (1 source) Intermittent explosive disorder; Translations: [INTERMITTENT EXPLOSIVE DISORDER] Onset: 09-13-2022 Chronic Mood disorders (20 sources) Bipolar I disorder; Translations: [Bipolar disorder, unspecified] Onset: 01-17-2017 08-12-2020 Chronic Mycoses (1 source) Onychomycosis due to dermatophyte ; Translations: [Tinea unguium] 08-29-2023 Episodic Osteoarthritis (20 sources) Osteoarthritis; Translations: [Unspecified osteoarthritis, unspecified site] Onset: 07-02-2011 03-04-2023 Chronic Other aftercare (2 sources) Other prison (current) drug therapy; Translations: [[facility] CURRENT DRUG THERAPY] Onset: 09-13-2022 Episodic Other connective tissue disease (1 source) Pain in toe; Translations: [Pain in unspecified toe(s)] 08-29-2023 Episodic Other ear and sense organ disorders (20 sources) Sensorineural hearing loss, bilateral; Translations: [Sensorineural hearing loss, bilateral] Onset: 07-10-2019 07-10-2019 Chronic Other liver diseases (1 source) Fatty (change of) liver, not elsewhere classified; Translations: [Fatty (change of) liver, not elsewhere classified] Onset: 03-26-2024 Chronic Other nervous system disorders (1 source) Other chronic pain; Translations: [Other chronic pain] Onset: 08-17-2023 Chronic Other nervous system disorders (20 sources) Chronic pain; Translations: [Other chronic pain] Onset: 12-26-2023 12-26-2023 Chronic Other non-traumatic joint disorders (2 sources) Pain in left shoulder; Translations: [Pain in joint, shoulder region] Onset: 09-02-2024 09-02-2024 Episodic Other non-traumatic joint disorders (1 source) Shoulder pain Onset: 09-02-2024 Episodic Other nutritional; endocrine; and metabolic disorders (1 source) Morbid (severe) obesity due to excess calories; Translations: [Morbid (severe) obesity due to excess calories] Onset: 05-11-2024 Chronic Other nutritional; endocrine; and metabolic disorders (18 sources) Morbid obesity; Translations: [Morbid (severe) obesity due to excess calories] Onset: 05-11-2024 05-11-2024 Chronic Other skin disorders (1 source) Dystrophia unguium; Translations: [Nail dystrophy] 08-29-2023 Episodic Other upper respiratory disease (20 sources) Allergic rhinitis; Translations: [Allergic rhinitis, unspecified] Onset: 05-10-2014 08-12-2020 Chronic Other upper respiratory disease (1 source) Seasonal allergy; Translations: [Other seasonal allergic rhinitis] 09-07-2024 Chronic Other upper respiratory infections (20 sources) Chronic sinusitis; Translations: [Other chronic sinusitis] Onset: 07-30-2022 02-04-2023 Chronic Parkinson`s disease (20 sources) Parkinson's disease; Translations: [Parkinson's disease] Onset: 07-02-2011 03-04-2023 Chronic Residual codes; unclassified (2 sources) Obstructive sleep apnea (adult) (pediatric); Translations: [Obstructive sleep apnea (adult) (pediatric)] Onset: 08-12-2020 Chronic Residual codes; unclassified (20 sources) Hypersomnia; Translations: [Hypersomnia, unspecified] Onset: 08-12-2020 08-12-2020 Chronic Residual codes; unclassified (20 sources) Obstructive sleep apnea syndrome; Translations: [Obstructive sleep apnea (adult) (pediatric)] Onset: 07-02-2011 08-12-2020 Chronic Schizophrenia and other psychotic disorders (20 sources) Schizoaffective disorder, bipolar type; Translations: [Schizoaffective disorder, depressive type] Onset: 2020 Chronic Spondylosis; intervertebral disc disorders; other back problems (20 sources) Spondylosis without myelopathy or radiculopathy, lumbar region; Translations: [Other intervertebral disc displacement, lumbar region] Onset: 08-06-2011 Chronic Unclassified (1 source) Encounter for immunization safety counseling; Translations: [Encounter for immunization safety counseling] Onset: 05-11-2024 Unclassified (1 source) Annual Exam Onset: 03-09-2024 Unclassified (1 source) medication Onset: 09-25-2023 Unclassified (1 source) Left shoulder pain, unspecified chronicity 09-08-2024 Past or Other Problems Problem Classification Problem Date Documented Date Episodic/Chronic Administrative/social admission (1 source) Patient encounter status; Translations: [Immunization counseling] 05-11-2024 Episodic Cardiac dysrhythmias (20 sources) Tachycardia, unspecified; Translations: [Palpitations] Onset: 08-12-2020 Episodic Diabetes mellitus without complication (20 sources) Abnormal glucose level; Translations: [Other abnormal glucose] Onset: 07-02-2011 08-12-2020 Episodic Genitourinary symptoms and ill-defined conditions (1 source) Dysuria; Translations: [Dysuria] 04-02-2024 Episodic Headache; including migraine (4 sources) Primary cough headache; Translations: [Cough headache syndrome] Onset: 01-26-2024 08-15-2023 Episodic Hemorrhoids (20 sources) Hemorrhoids without complication; Translations: [Unspecified hemorrhoids] Onset: 08-12-2020 08-12-2020 Episodic Mood disorders (20 sources) Mood disorders Onset: 01-08-2023 Resolved: 03-09-2024 03-09-2024 Nausea and vomiting (2 sources) Nausea with vomiting, unspecified; Translations: [Vomiting] Onset: 03-26-2024 Episodic Neoplasms of unspecified nature or uncertain behavior (20 sources) Neoplasm of uncertain behavior of skin; Translations: [Neoplasm of uncertain behavior of skin] Onset: 09-10-2012 08-12-2020 Episodic Other aftercare (1 source) Antibiotic prophylaxis indicated; Translations: [FCI (current) use of antibiotics] 04-03-2024 Episodic Other nervous system disorders (20 sources) Abnormal gait; Translations: [Unspecified abnormalities of gait and mobility] Onset: 07-02-2011 08-12-2020 Episodic Other non-traumatic joint disorders (1 source) Pain in right hip; Translations: [Pain in right hip] Onset: 08-17-2023 Episodic Other non-traumatic joint disorders (3 sources) Hip pain Onset: 08-17-2023 Episodic Other upper respiratory disease (20 sources) Deviated nasal septum; Translations: [Deviated nasal septum] Onset: 07-30-2022 02-04-2023 Episodic Other upper respiratory disease (20 sources) Nasal congestion; Translations: [Nasal congestion] Onset: 02-04-2023 02-04-2023 Episodic Other upper respiratory disease (20 sources) Hypertrophy of nasal turbinates; Translations: [Hypertrophy of nasal turbinates] Onset: 02-04-2023 02-04-2023 Episodic Other upper respiratory infections (20 sources) Sinusitis; Translations: [Acute sinusitis, unspecified] Onset: 06-03-2019 Resolved: 02-25-2020 02-25-2020 Episodic Pancreatic disorders (not diabetes) (20 sources) Acute pancreatitis; Translations: [Acute pancreatitis without necrosis or infection, unspecified] Onset: 08-12-2020 Resolved: 03-04-2023 03-04-2023 Episodic Residual codes; unclassified (20 sources) Abnormal finding on evaluation procedure; Translations: [Other general symptoms and signs] Onset: 08-12-2020 08-12-2020 Episodic Residual codes; unclassified (1 source) Tobacco use and exposure - finding; Translations: [Tobacco use] 03-09-2024 Episodic Skull and face fractures (20 sources) Fractured nasal septum; Translations: [Fracture of nasal bones, initial encounter for closed fracture] Onset: 02-04-2023 02-04-2023 Episodic Spondylosis; intervertebral disc disorders; other back problems (20 sources) Spinal stenosis, thoracic region; Translations: [Sciatica, right side] Onset: 07-02-2011 Episodic Results Test Name Value Interpretation Reference Range Facility Valproate [Mass/Vol]on 09-09 VALPROIC ACID 44 ug/mL Low 50-100 [facility] Comment on above: Performed By: #### 4 086-5 #### [facility] ([id number]) [address], [address] [place] [address] BASIC METABOLIC PANLon 07-30 Anion gap [Moles/Vol] 13 mmol/L Normal 5-15 [facility] Comment on above: Performed By: #### B MP #### [facility] ([id number]) [address] [place] [address] Calcium [Mass/Vol] 10.8 mg/dL High 8.5-10.5 [facility] Comment on above: Performed By: #### B MP #### [facility] ([id number]) [address], [address] [place] [address] Chloride [Moles/Vol] 102 mmol/L Normal 98-109 [facility] Comment on above: Performed By: #### B MP #### [facility] ([id number]) [address], [address] [place] [address] CO2 [Moles/Vol] 29 mmol/L Normal 22-32 [facility] Comment on above: Performed By: #### B MP #### [facility] ([id number]) [address] [place] [address] Creatinine [Mass/Vol] 0.96 mg/dL Normal 0.60-1.30 [facility] Comment on above: Result Comment: METH OD TRACEABLE TO IDMS STANDARD Performed By: #### B MP #### [facility] ([id number]) [address] [place] [address] eGFR (CKD-EPI) NON-RACE DEPENDENT >90 Normal >59 [facility] Comment on above: Result Comment: Reported eGFR is based on the CKD-EPI 2020 equation that does not use a race coefficient. Performed By: #### B MP #### [facility] ([id number]) [address], [address] [place] [address] Glucose [Mass/Vol] 107 mg/dL High 65-99 [facility] Comment on above: Performed By: #### B MP #### [facility] ([id number]) [address], [address] [place] [address] Potassium [Moles/Vol] 4.8 mmol/L Normal 3.5-5.0 [facility] Comment on above: Performed By: #### B MP #### [facility] ([id number]) [address], [address] [place] [address] Sodium [Moles/Vol] 144 mmol/L Normal 134-146 [facility] Comment on above: Performed By: #### B MP #### [facility] ([id number]) [address], [address] [place] [address] Urea nitrogen [Mass/Vol] 9 mg/dL Normal 5-23 [facility] Comment on above: Performed By: #### B MP #### [facility] ([id number]) [address], [address] [place] [address] Basic Metabolic Panelon 01-0 Anion gap [Moles/Vol] 13 mmol/L 5 - 15 mmol/L [facility] Calcium [Mass/Vol] 10.8 mg/dL High 8.5 - 10. 5 mg/dL [facility] Chloride [Moles/Vol] 102 mmol/L 98 - 10 9 mmol/L [facility] CO2 [Moles/Vol] 29 mmol/L 22 - 32 mmol/L [facility] Creatinine [Mass/Vol] 0.96 mg/dL 0.60 - 1.30 mg/dL [facility] Comment on above: METHOD TRACEABLE TO IDMS STANDARD eGFR (CKD-EPI)non-race dependent - PINF [facility] Comment on above: Reported eGFR is based on the CKD-EPI 2020 equation that does not use a race coefficient. Glucose [Mass/Vol] 107 mg/dL High 65 - 99 mg/dL [facility] Interpretation and review of laboratory results Abnormal [facility] Potassium [Moles/Vol] 4.8 mmol/L 3.5 - 5.0 mmol/L [facility] Sodium [Moles/Vol] 144 mmol/L 134 - 146 mmol/L [facility] Urea nitrogen [Mass/Vol] 9 mg/dL 5 - 23 mg/dL [facility] CBC AND AUTO DIFFon 03-26-20 24 ABSOLUTE BASOPHIL 0.0 X10E9/L Normal 0.0-0.2 [facility] Comment on above: Performed By: #### Timmy YOUNGBLOOD CMP, 3040-3 #### [facility] ([id number]) [address] [place] [address] 69493 ABSOLUTE NEUTROPHIL 4.9 X10E9/L Normal 1.5-6.6 [facility] Comment on above: Performed By: #### Timmy YOUNGBLOOD [facility], 3039-3 #### [facility] ([id number]) [address] [place] [address] 66652 Basophils/100 WBC (Bld) 0.6 % Normal [facility] Comment on above: Performed By: #### Timmy YOUNGBLOOD CMP, 3040-3 #### [facility] ([id number]) [address] [place] [address] 51757 Eosinophils (Bld) [#/Vol] 0.1 10*3/uL Normal 0.0-0.4 [facility] Comment on above: Performed By: #### Timmy YOUNGBLOOD CMP, 3040-3 #### [facility] ([id number]) [address] [place] [address] 64634 Eosinophils/100 WBC (Bld) 0.8 % Normal [facility] Comment on above: Performed By: #### Timmy YOUNGBLOOD CMP, 3040-3 #### [facility] ([id number]) [address] [place] [address] 09178 Erythrocyte distribution width (RBC) [Ratio] 14.7 % Normal 11.5-15.0 [facility] Comment on above: Performed By: #### Timmy YOUNGBLOOD CMP, 3039-3 #### [facility] ([id number]) [address] [place] [address] 37375 Hematocrit (Bld) [Volume fraction] 48.3 % Normal 39-49 [facility] Comment on above: Performed By: #### Timmy YOUNGBLOOD CMP, 3 #### [facility] ([id number]) [address] [place] [address] 27902 Hemoglobin (Bld) [Mass/Vol] 16.3 g/dL Normal 13.0-17.0 [facility] Comment on above: Performed By: #### Timmy YOUNGBLOOD CMP, 3 #### [facility] ([id number]) [address] [place] [address] 93780 Lymphocytes (Bld) [#/Vol] 1.7 10*3/uL Normal 1.0-3.5 [facility] Comment on above: Performed By: #### Timmy YOUNGBLOOD CMP, 3039-09 #### [facility] ([id number]) [address] [place] [address] 41682 Lymphocytes/100 WBC (Bld) 22.7 % Normal [facility] Comment on above: Performed By: #### Timmy YOUNGBLOOD CMP, 3 #### [facility] ([id number]) [address] [place] [address] 45387 MCH (RBC) [Entitic mass] 27.9 pg Normal 27-34 [facility] Comment on above: Performed By: #### Timmy YOUNGBLOOD CMP, 3 #### [facility] ([id number]) [address] [place] [address] 07147 MCHC (RBC) [Mass/Vol] 33.8 g/dL Normal 32-36 [facility] Comment on above: Performed By: #### Timmy YOUNGBLOOD CMP, 3039-09 #### [facility] ([id number]) [address] [place] [address] 62186 MCV (RBC) [Entitic vol] 83 fL Normal 80-100 [facility] Comment on above: Performed By: #### Timmy YOUNGBLOOD CMP, 3039-09 #### [facility] ([id number]) [address] [place] [address] 94270 Monocytes (Bld) [#/Vol] 0.7 10*3/uL Normal 0-0.9 [facility] Comment on above: Performed By: #### Timmy YOUNGBLOOD CMP, 3039-09 #### [facility] ([id number]) [address] [place] [address] 20993 Monocytes/100 WBC (Bld) 9.7 % Normal [facility] Comment on above: Performed By: #### Timmy YOUNGBLOOD CMP, 3039-09 #### [facility] ([id number]) [address] [place] [address] 19511 Neutrophils/100 WBC (Bld) 66.2 % Normal [facility] Comment on above: Performed By: #### Timmy YOUNGBLOOD CMP, 3039-09 #### [facility] ([id number]) [address] [place] [address] 97935 Platelet mean volume (Bld) [Entitic vol] 7.7 fL Normal 7-12 [facility] Comment on above: Performed By: #### Tmimy YOUNGBLOOD CMP, 3039-09 #### [facility] ([id number]) [address] [place] [address] 07698 Platelets (Bld) [#/Vol] 243 10*3/uL Normal 150-450 [facility] Comment on above: Performed By: #### C BCA, CMP, 3039-3 #### [facility] ([id number]) [address] [place] [address] 81743 RBC COUNT 5.85 X10E12/L High 4.10-5.70 [facility] Comment on above: Performed By: #### C BCA, CMP, 3039-3 #### [facility] ([id number]) [address] [place] [address] 35836 WBC (Bld) [#/Vol] 7.5 10*3/uL Normal 4.0-11.0 [facility] Comment on above: Performed By: #### C BCA, CMP, 3039-09 #### [facility] ([id number]) [address] [place] [address] 58473 COMPREHENSIVE METABOLIC PANE Trey 03-26-2024 Albumin [Mass/Vol] 5.2 g/dL Normal 3.2-5.3 [facility] Comment on above: Performed By: #### C BCA, CMP, 3039-09 #### [facility] ([id number]) [address] [place] [address] 55252 ALP [Catalytic activity/Vol] 93 U/L Normal 39-130 [facility] Comment on above: Performed By: #### C BCA, CMP, 3 #### [facility] ([id number]) [address] [place] [address] 99533 ALT [Catalytic activity/Vol] 78 U/L High 0-40 [facility] Comment on above: Performed By: #### C BCA, CMP, 3 #### [facility] ([id number]) [address] [place] [address] 93274 Anion gap [Moles/Vol] 12 mmol/L Normal 5-15 [facility] Comment on above: Performed By: #### C BCA, CMP, 3039-3 #### [facility] ([id number]) [address] [place] [address] 43574 AST [Catalytic activity/Vol] 64 U/L High 0-41 [facility] Comment on above: Performed By: #### C BCA, CMP, 3040-3 #### [facility] ([id number]) [address] [place] [address] 57661 Bilirubin [Mass/Vol] 0.7 mg/dL Normal 0.3-1.2 [facility] Comment on above: Performed By: #### C BCA, CMP, 3039-3 #### [facility] ([id number]) [address] [place] [address] 19269 Calcium [Mass/Vol] 10.5 mg/dL Normal 8.5-10.5 [facility] Comment on above: Performed By: #### C RYLIE, CMP, 3 #### [facility] ([id number]) [address] [place] [address] 17884 Chloride [Moles/Vol] 99 mmol/L Normal 98-109 [facility] Comment on above: Performed By: #### C BCA, CMP, 3 #### [facility] ([id number]) [address] [place] [address] 70183 CO2 [Moles/Vol] 24 mmol/L Normal 22-32 [facility] Comment on above: Performed By: #### C BCA, CMP, 3039-3 #### [facility] ([id number]) [address] [place] [address] 89692 Creatinine [Mass/Vol] 0.93 mg/dL Normal 0.70-1.20 [facility] Comment on above: Result Comment: METH OD TRACEABLE TO IDMS STANDARD Performed By: #### C BCA, CMP, 3039-3 #### [facility] ([id number]) [address] [place] [address] 27260 eGFR (CKD-EPI) NON-RACE DEPENDENT >90 Normal >59 [facility] Comment on above: Result Comment: Reported eGFR is based on the CKD-EPI 2020 equation that does not use a race coefficient. Performed By: #### C EDIE YOUNGBLOOD, 3040-3 #### [facility] ([id number]) [address] [place] [address] 59611 Glucose [Mass/Vol] 126 mg/dL High 65-99 [facility] Comment on above: Performed By: #### C RYLIE [facility], 3039-3 #### [facility] ([id number]) [address] [place] [address] 28988 Potassium [Moles/Vol] 3.4 mmol/L Low 3.5-5.0 [facility] Comment on above: Performed By: #### Timmy YOUNGBLOOD [facility], 3039-3 #### [facility] ([id number]) [address] [place] [address] 69147 Protein [Mass/Vol] 9.3 g/dL High 6.0-8.0 [facility] Comment on above: Performed By: #### C RYLIE [facility], 0-3 #### [facility] ([id number]) [address] [place] [address] 15245 Sodium [Moles/Vol] 135 mmol/L Normal 134-146 [facility] Comment on above: Performed By: #### C RYLIE [facility], 3040-3 #### [facility] ([id number]) [address] [place] [address] 75886 Urea nitrogen [Mass/Vol] 12 mg/dL Normal 5-23 [facility] Comment on above: Performed By: #### Timmy YOUNGBLOOD CMP, 3040-3 #### [facility] ([id number]) [address] [place] [address] ABDOMEN AND PELVIS W CONT on 03-26-2024 CT ABDOMEN AND PELVIS W CONT CT ABDOMEN AND PELVIS W CONT CT ABDOMEN AND PELVIS W CONT HISTORY: Abdominal pain, acute, nonlocalized COMPARISON STUDY: 03/10. TECHNIQUE: CT scan of the abdomen and pelvis performed with IV no oral contrast. 100 mL of Omnipaque 300 was injected intravenously without complication. Coronal and sagittal reformats generated and reviewed. FINDINGS: LOWER THORAX: Unremarkable. HEPATOBILIARY: Hepatic steatosis. No focal aggressive appearing hepatic lesions. Mild dilatation of the common bile duct, with upstream tapering of the intrahepatic biliary tree, nonspecific, but likely related to reservoir effect s/p cholecystectomy. SPLEEN: Unremarkable. PANCREAS: No focal masses or ductal dilatation. ADRENALS: No large adrenal nodules. KIDNEYS/URETERS: Symmetric renal nephrograms No aggressive appearing mass lesion. No obstructive nephrolithiasis. No collecting system dilatation. Bladder: Within normal limits. PELVIC ORGANS: Within normal limits. Status post vasectomies. GI TRACT: No acute bowel obstruction. Colonic diverticulosis without inflammatory change. The appendix is within normal limits. LYMPH NODES: No enlarged lymph nodes. VESSELS: No acute thrombus. No abdominal aortic aneurysm. BONES AND SOFT TISSUES: No suspicious osseous lesion. L2-L5 posterior fixation hardware and laminectomies. Small bilateral fat-containing inguinal hernias. PERITONEUM/RETROPERITO NEUM: No free air or significant free fluid. IMPRESSION: 1. Fatty liver disease. 2. Normal appendix. All CT scans at this facility use dose modulation, iterative reconstruction, and/or weight based dosing when appropriate to reduce radiation dose to as low as reasonably achievable. Finalized by Javier Figueroa on 03/26/2024 2:[address] [facility] LIPASEon 03-26-2024 Lipase [Catalytic activity/Vol] 49 U/L High 17-40 [facility] Comment on above: Performed By: #### C RYLIE, EDIE, 3040-3 #### [facility] ([id number]) [address] [place] [address], [place] [address] SARS/FLU A+B/RSV by NAAT/Mol ecularon 03-26-2024 SARS/FLU A+B/RSV by NAAT/Molecular FLU A PCR Negative (qualifier value) FLU B PCR Negative (qualifier value) RSV by PCR Negative (qualifier value) SARS CoV 2 Not detected (qualifier value) NOTE The Xpert Xpress SARS-CoV-2/Flu/RSV Plus test is a rapid, multiplexed real-time RT-PCR test intended for the simultaneous qualitative detection and differentiation of SARS-CoV-2, influenza A, influenza B and respiratory syncytial virus (RSV) viral RNA from individuals suspected of respiratory viral infection consistent with COVID-19 by their healthcare provider. This test has not been validated in asymptomatic patients. The Xpert Xpress SARS-CoV-2 test is intended for use by qualified and trained operators who are performing tests using either [employer] or [employer] systems and is limited to laboratories that meet the CLIA requirements to perform high and moderate complexity tests. The Xpert Xpress SARS-CoV-2/Flu/RSV Plus is only for use under the Food and Drug Administration's Emergency Use Authorization. Results are for the simultaneous detection and differentiation of SARS-CoV-2, influenza A, influenza B and RSV nucleic acids in clinical specimens. SARS-CoV-2, influenza A, influenza B and RSV RNA identified by this test are generally detectable in upper respiratory samples during the acute phase of infection. Positive results are indicative of the presence of the identified virus, but do not rule out bacterial infection or co-infection with other pathogens not detected by this test. Clinical correlation with patient history and other diagnostic information is necessary to determine patient infection status. The agent detected may not be the definite cause of disease. Negative results do not preclude SARS-CoV-2, influenza A, influenza B and RSV infection and should not be used as the sole basis for treatment or other patient management decisions. Negative results must be combined with clinical observations, patient history and epidemiological information. An Invalid result may occur with specimen-associated inhibition unable to be resolved with specimen repeat. Fact Sheet for Healthcare Providers: https://www.fda.gov/me anderson/900562/download Fact Sheet for Patients: https://www.fda.gov/me anderson/937292/download [facility] Comment on above: Performed By: #### C OVFLR #### [facility] ([id number]) [address] [place] [address] URN MACROSCOPIC NURon 2023 BILIRUBIN ABDIRAHMAN Small Abnormal NEG [facility] Comment on above: Performed By: #### N UM #### [facility] ([id number]) [address] [place] [address] [place] [address] BLOOD/HGB ABDIRAHMAN Negative Normal NEG [facility] Comment on above: Performed By: #### N UM #### [facility] ([id number]) [address] [place] [address] GLUCOSE ABDIRAHMAN Negative Normal NEG [facility] Comment on above: Performed By: #### N UM #### [facility] ([id number]) [address] [place] [address] [place] [address] KETONES ABDIRAHMAN Trace Abnormal NEG [facility] Comment on above: Performed By: #### N UM #### [facility] ([id number]) [address] [place] [address] [place] [address] LEUKOCYTE ESTERASE ABDIRAHMAN Negative Normal NEG [facility] Comment on above: Performed By: #### N UM #### [facility] ([id number]) [address] [place] [address] [place] [address] NITRITE ABDIRAHMAN Negative Normal NEG [facility] Comment on above: Performed By: #### N UM #### [facility] ([id number]) [address] [place] [address] [place] [address] PH ABDIRAHMAN 8.5 Normal 5.0-8.5 [facility] Comment on above: Performed By: #### N UM #### [facility] ([id number]) [address] [place] [address] PROTEIN ABDIRAHMAN 100 mg/dL Abnormal NEG [facility] Comment on above: Performed By: #### N UM #### [facility] ([id number]) [address] [place] [address] [place] [address] SPECIFIC GRAVITY ABDIRAHMAN 1.015 Normal 1.003-1.035 [facility] Comment on above: Performed By: #### N UM #### [facility] ([id number]) [address] [facility], [place] [address] UROBILINOGEN ABDIRAHMAN 1.0 eu/dL Normal <1.1 [facility] Comment on above: Performed By: #### N UM #### [facility] ([id number]) [address] [facility], [place] [address] Glucose Glucometer (BldC) [M ass/Vol]on 02-21-2024 Glucose [Mass/Vol] 114 mg/dL High 65-99 [facility] 36on 10-11-2023 36 Spoke with caregiver Marco Gomez regarding my conversation with Dr. Washington about [facility] MRI lumbar spine results. Explained to Marco that I had reviewed his lumbar spine imaging with Dr. Washington. Dr. Washington felt that if he were to do surgery, this would likely involve extending his hardware up another few levels at least. Dr. Washington states is not clear to him that it would actually help the back or leg symptoms. He further states that it is not clear when 1 stops having surgery for ongoing junctional stenosis. Would suggest other alternatives for pain control, possibly including spinal cord stimulation. Discussed with caregiver that this has been mentioned previously about 2 years ago and patient's mother/guardian had declined at that time. I do think that this may be worth reconsidering with patient's pain management provider, Dr. Pritchett. Advised that many pain management providers do spinal cord stimulation and briefly reviewed how stimulation works as well as briefly discussed trial and possible permanent implant if successful trial. We discussed some indications for spinal cord stimulation. He states he will discuss with Dr. Pritchett. If Dr. Pritchett does not do this, he may call us and ask for referral to another provider. Normal [facility] Telephoneon 10-11-2023 Telephone [id number] Laxmi Torres 1975 M Date Provider Department Center 10/11/2023 Codey-ENEDINA R[facility]LL [facility] [[email or web address] SURG Second Fl Family History Adopted: Yes Normal [facility] Follow-Upon 10-10-2023 Follow-Up [id number] Laxmi Torres 1975 M Date Provider Department Center 10/10/2023 148-ENEDINA RUSSELL [facility] [[email or web address] SURG Second Fl Family History Adopted: Yes Level of Service:34935 NE OFFICE/OUTPATIENT ESTABLISHED MOD MDM 30 MIN Reason for Visit and Comments: Follow-up [041311] - Pt here to discuss Degenerative lumbar stenosis, pain been getting worse Normal [facility] CBC AND AUTO DIFFon 10-01-19 24 ABSOLUTE BASOPHIL 0.0 X10E9/L Normal 0.0-0.2 [facility] Comment on above: Performed By: #### C BCA, CMP, 91487-4 #### [facility] ([id number]) [address], [address] [place] [address] ABSOLUTE NEUTROPHIL 3.4 X10E9/L Normal 1.5-6.6 [facility] Comment on above: Performed By: #### C BCA, CMP, 18911-0 #### [facility] ([id number]) [address], [address] [place] [address] Basophils/100 WBC (Bld) 0.6 % Normal [facility] Comment on above: Performed By: #### C BCA, CMP, 87384-8 #### [facility] ([id number]) [address], [address] [place] [address] Eosinophils (Bld) [#/Vol] 0.3 10*3/uL Normal 0.0-0.4 [facility] Comment on above: Performed By: #### C BCA, CMP, 91873-1 #### [facility] ([id number]) [address], [address] [place] [address] Eosinophils/100 WBC (Bld) 4.0 % Normal [facility] Comment on above: Performed By: #### C BCA, CMP, 53526-5 #### [facility] ([id number]) [address], [address] [place] [address] Erythrocyte distribution width (RBC) [Ratio] 14.4 % Normal 11.5-15.0 [facility] Comment on above: Performed By: #### Timmy YOUNGBLOOD CMP, 47457-5 #### [facility] ([id number]) [address], [facility] [address] [place] [address] Hematocrit (Bld) [Volume fraction] 43.7 % Normal 39-49 [facility] Comment on above: Performed By: #### Timmy YOUNGBLOOD CMP, 27719-5 #### [facility] ([id number]) [address] [address] [place] [address] Hemoglobin (Bld) [Mass/Vol] 14.9 g/dL Normal 13.0-17.0 [facility] Comment on above: Performed By: #### Timmy YOUNGBLOOD CMP, 01572-9 #### [facility] ([id number]) [address], [facility] [address] [place] [address] Lymphocytes (Bld) [#/Vol] 2.2 10*3/uL Normal 1.0-3.5 [facility] Comment on above: Performed By: #### Timmy YOUNGBLOOD CMP, 89820-7 #### [facility] ([id number]) [address], [facility] [address] [place] [address] Lymphocytes/100 WBC (Bld) 33.9 % Normal [facility] Comment on above: Performed By: #### Timmy YOUNGBLOOD CMP, 28918-2 #### [facility] ([id number]) [address], [facility] [address] [place] [address] MCH (RBC) [Entitic mass] 27.9 pg Normal 27-34 [facility] Comment on above: Performed By: #### Timmy YOUNGBLOOD CMP, 98638-5 #### [facility] ([id number]) [address], [address] [place] [address] MCHC (RBC) [Mass/Vol] 34.0 g/dL Normal 32-36 [facility] Comment on above: Performed By: #### Timmy YOUNGBLOOD CMP, 09795-1 #### [facility] ([id number]) [address], [address] [place] [address] MCV (RBC) [Entitic vol] 82 fL Normal 80-100 [facility] Comment on above: Performed By: #### Timmy YOUNGBLOOD CMP, 48951-0 #### [facility] ([id number]) [address], [address] [place] [address] Monocytes (Bld) [#/Vol] 0.6 10*3/uL Normal 0-0.9 [facility] Comment on above: Performed By: #### Timmy YOUNGBLOOD CMP, 67038-5 #### [facility] ([id number]) [address], [address] [place] [address] Monocytes/100 WBC (Bld) 8.6 % Normal [facility] Comment on above: Performed By: #### Timmy YOUNGBLOOD CMP, 88674-6 #### [facility] ([id number]) [address], [address] [place] [address] Neutrophils/100 WBC (Bld) 52.9 % Normal [facility] Comment on above: Performed By: #### Timmy YOUNGBLOOD CMP, 17740-6 #### [facility] ([id number]) [address], [address] [place] [address] Platelet mean volume (Bld) [Entitic vol] 8.0 fL Normal 7-12 [facility] Comment on above: Performed By: #### Timmy YOUNGBLOOD CMP, 71812-4 #### [facility] ([id number]) [address], [address] [place] [address] Platelets (Bld) [#/Vol] 188 10*3/uL Normal 150-450 [facility] Comment on above: Performed By: #### Timmy YOUNGBLOOD CMP, 83601-9 #### [facility] ([id number]) [address], [address] [place] [address] RBC COUNT 5.33 X10E12/L Normal 4.10-5.70 [facility] Comment on above: Performed By: #### C BCA, CMP, 12231-0 #### [facility] ([id number]) [address], [address] [place] [address] WBC (Bld) [#/Vol] 6.5 10*3/uL Normal 4.0-11.0 [facility] Comment on above: Performed By: #### C BCA, CMP, 06073-1 #### [facility] ([id number]) [address], [address] [place] [address] COMPREHENSIVE METABOLIC PANE Trey 10-01-2023 Albumin [Mass/Vol] 4.8 g/dL Normal 3.2-5.3 [facility] Comment on above: Performed By: #### C BCA, CMP, 76007-0 #### [facility] ([id number]) [address], [address] [place] [address] ALP [Catalytic activity/Vol] 120 U/L Normal 39-130 [facility] Comment on above: Performed By: #### C BCA, CMP, 44458-7 #### [facility] ([id number]) [address], [address] [place] [address] ALT [Catalytic activity/Vol] 41 U/L High 0-40 [facility] Comment on above: Performed By: #### C BCA, CMP, 57771-9 #### [facility] ([id number]) [address], [address] [place] [address] Anion gap [Moles/Vol] 13 mmol/L Normal 5-15 [facility] Comment on above: Performed By: #### C BCA, CMP, 27994-4 #### [facility] ([id number]) [address] [place] [address] AST [Catalytic activity/Vol] 29 U/L Normal 0-41 [facility] Comment on above: Performed By: #### C BCA, CMP, 88943-0 #### [facility] ([id number]) [address], [address] [place] [address] Bilirubin [Mass/Vol] 0.4 mg/dL Normal 0.3-1.2 [facility] Comment on above: Performed By: #### C BCA, CMP, 60635-4 #### [facility] ([id number]) [address], [address] [place] [address] Calcium [Mass/Vol] 10.3 mg/dL Normal 8.5-10.5 [facility] Comment on above: Performed By: #### C BCA, CMP, 34012-1 #### [facility] ([id number]) [address] [place] [address] Chloride [Moles/Vol] 100 mmol/L Normal 98-109 [facility] Comment on above: Performed By: #### C BCA, CMP, 63031-2 #### [facility] ([id number]) [address], [address] [place] [address] CO2 [Moles/Vol] 29 mmol/L Normal 22-32 [facility] Comment on above: Performed By: #### C BCA, CMP, 45428-7 #### [facility] ([id number]) [address], [address] [place] [address] Creatinine [Mass/Vol] 0.89 mg/dL Normal 0.60-1.30 [facility] Comment on above: Result Comment: METH OD TRACEABLE TO IDMS STANDARD Performed By: #### C BCA, CMP, 04258-6 #### [facility] ([id number]) [address] [place] [address] eGFR (CKD-EPI) NON-RACE DEPENDENT >90 Normal >59 [facility] Comment on above: Result Comment: Reported eGFR is based on the CKD-EPI 2020 equation that does not use a race coefficient. Performed By: #### C EDIE YOUNGBLOOD, 04940-4 #### [facility] ([id number]) [address], [facility] [address] [place] [address] Glucose [Mass/Vol] 157 mg/dL High 65-99 [facility] Comment on above: Performed By: #### C EDIE YOUNGBLOOD, 86110-0 #### [facility] ([id number]) [address] [address] [place] [address] Potassium [Moles/Vol] 4.3 mmol/L Normal 3.5-5.0 [facility] Comment on above: Performed By: #### Timmy YOUNGBLOOD CMP, 26421-8 #### [facility] ([id number]) [address] [address] [place] [address] Protein [Mass/Vol] 7.9 g/dL Normal 6.0-8.0 [facility] Comment on above: Performed By: #### C EDIE YOUNGBLOOD, 25192-3 #### [facility] ([id number]) [address] [address] [place] [address] Sodium [Moles/Vol] 142 mmol/L Normal 134-146 [facility] Comment on above: Performed By: #### C EDIE YOUNGBLOOD, 22983-0 #### [facility] ([id number]) [address] [address] [place] [address] Urea nitrogen [Mass/Vol] 12 mg/dL Normal 5-23 [facility] Comment on above: Performed By: #### C BCA CMP, 53146-7 #### [facility] ([id number]) [address] [address] [place] [address] HGB A1C (GLYCO-HGB)on 2023 Glucose [Mass/Vol] 140 mg/dL Normal [facility] Comment on above: Performed By: #### Timmy YOUNGBLOOD CMP, 69821-9 #### [facility] ([id number]) [address], [address] [place] [address] HbA1c (Bld) [Mass fraction] 6.5 % High 4.4-5.6 [facility] Comment on above: Result Comment: NOTE ADA Guidelines Result HgbA1c Normal : less than 5.7 % Prediabetes : 5.7 % to 6.4 % Diabetes : > 6.4 % Use with caution in patients with abnormal hemoglobin variants as the half-life of red blood cells and in vivo glycation rates are affected. Performed By: #### Timmy YOUNGBLOOD CMP, 17917-3 #### [facility] ([id number]) [address], [address] [place] [address] Lipid 1996 panelon Cholesterol [Mass/Vol] 183 mg/dL Normal 150-200 [facility] Comment on above: Performed By: #### Timmy YOUNGBLOOD CMP, 93555-6 #### [facility] ([id number]) [address], [address] [place] [address] Cholesterol in HDL [Mass/Vol] 31 mg/dL Low >39 [facility] Comment on above: Result Comment: HDL <40 mg/dL - High Risk HDL > or = 40mg/dL- Desirable HDL >60 mg/dL - Negative Risk Performed By: #### Timmy YOUNGBLOOD CMP, 08333-3 #### [facility] ([id number]) [address], [address] [place] [address] Cholesterol in LDL [Mass/Vol] 73 mg/dL Normal <130 [facility] Comment on above: Result Comment: LDL <100 mg/dL - Desirable LDL >160 mg/dL - High Risk Performed By: #### C RYLIE, CMP, 02937-5 #### [facility] ([id number]) [address], [address] [place] [address] Cholesterol in VLDL [Mass/Vol] 79 mg/dL High 0-30 [facility] Comment on above: Performed By: #### Timmy YOUNGBLOOD, CMP, 52822-8 #### [facility] ([id number]) [address] [place] [address] CHOLESTEROL:HDL 5.9 High 1.0-5.0 [facility] Comment on above: Performed By: #### Timmy BCA, CMP, 43800-7 #### [facility] ([id number]) [address], [address] [place] [address] Triglyceride [Mass/Vol] 394 mg/dL High 27-150 [facility] Comment on above: Performed By: #### Timmy BCA, CMP, 71525-3 #### [facility] ([id number]) [address] [place] [address] Office Visiton 09-24-2023 Follow-up visit [id number] Laxmi Torres 1975 M Date Provider Department Center 09/24/2023 120-[facility] Family History Adopted: Yes Level of Service:79364 NE OFFICE/OUTPATIENT ESTABLISHED MOD MDM [address] [facility] 3611-16-2022 36 Called and spoke venita Hanna the caregiver and advised he needed to speak with pain management. [facility] 11-15-2022 36 Rogers is calling state s he had a conversation with [place] about a month ago about stimulator. Who does he discuss this with pain mgmt in [place] or [place]? Normal [facility] GLYCOHEMOGLOBIN A1Con 2022 ADA RECOMMENDATION SEE BELOW Normal [facility] Comment on above: Result Comment: ADA RECOMMENDED LIMIT 4.0 - 6.0 ADA THERAPEUTIC TARGET < 7.0 ACTION SUGGESTED > 7.0 Performed By: #### A 1C #### [facility] [address] [address] [address] Beverly Kraft Glucose [Mass/Vol] 123 mg/dL Normal [facility] Comment on above: Performed By: #### A 1C #### [facility] [address] [place] [address] Dr. Beverly Kraft HbA1c (Bld) [Mass fraction] 5.9 % Normal 4.5-6.2 [facility] Comment on above: Performed By: #### A 1C #### [facility] [address] [place] [address] Dr. Beverly Kraft LIPID PROFILEon 11-10-2022 CHOL-HDL RATIO NORM SEE BELOW Normal [facility] Comment on above: Result Comment: 3.3 - 4.4 LOW RISK 4.4 - 7.1 AVERAGE RISK 7.1 - 11.0 MODERATE RISK >11.0 HIGH RISK Performed By: #### L IPID, BMP, AST, ALT #### [facility] [address] [place] [address] Dr. Beverly Kraft Cholesterol [Mass/Vol] 181 mg/dL Normal <=200 [facility] Comment on above: Performed By: #### L IPID, BMP, AST, ALT #### [facility] [address] [address] [address] Beverly Kraft Cholesterol in HDL [Mass/Vol] 34 mg/dL Critically low 40-60 [facility] Comment on above: Performed By: #### L IPID, BMP, AST, ALT #### [facility] [address] [place] [address] Dr. Beverly Kraft Cholesterol in LDL [Mass/Vol] 110.0 mg/dL Normal [facility] Comment on above: Performed By: #### L IPID, BMP, AST, ALT #### [facility] [address] [address] [address] Beverly Kraft Cholesterol.total/Ch olesterol in HDL [Mass ratio] 5.3 {ratio} Normal [facility] Comment on above: Performed By: #### L IPID, BMP, AST, ALT #### [facility] [address] [address] [address] Beverly Kraft HDL NORMAL > or = 60 mg/dl - LO W CARDIOVASCULAR RISK <40 mg/dl - HIGH CARDIOVASCULAR RISK Normal [facility] Comment on above: Performed By: #### L IPID, BMP, AST, ALT #### [facility] [address] [address] [address] Beverly Kraft LDL CALC NORMAL SEE BELOW Normal [facility] Comment on above: Result Comment: <100 mg/dl OPTIMAL 100 - 129 mg/dl NEAR OR ABOVE OPTIMAL 130 - 159 mg/dl BORDERLINE HIGH 160 - 189 mg/dl HIGH >190 mg/dl VERY HIGH Performed By: #### L IPID, BMP, AST, ALT #### [facility] [address] [address] [address] Beverly Kraft Triglyceride [Mass/Vol] 185 mg/dL Critically high <=150 [facility] Comment on above: Performed By: #### L IPID, BMP, AST, ALT #### [facility] [address] [address] [address] Beverly Kraft VLDL CALC 37.0 mg/dL Normal [facility] Comment on above: Performed By: #### L IPID, BMP, AST, ALT #### [facility] [address] [address] [address] Beverly Kraft MICROALB CREAT RATIO RANDOMo n 11-10-2022 mALB <1.3 Normal <=30.0 [facility] Comment on above: Performed By: #### M CRR #### [facility] [address] [address] [address] Beverly Kraft MALB CR RATIO 9.3 mg/g Normal 0.0-29.9 [facility] Comment on above: Performed By: #### M CRR #### [facility] [address] [address] [address] Beverly Kraft URINE CREAT 139.55 mg/dL Normal 20.00-300.00 [facility] Comment on above: Performed By: #### M CRR #### [facility] [address] [address] [address] Beverly Kraft PROF CHEM 8 (BAS METB)on Anion gap [Moles/Vol] 13.0 mmol/L Normal [facility] [facility] Comment on above: Performed By: #### L IPID, BMP, AST, ALT #### [facility] [address] [address] [address] Beverly Kraft Calcium [Mass/Vol] 9.9 mg/dL Normal 8.5-10.1 [facility] Comment on above: Performed By: #### L IPID, BMP, AST, ALT #### [facility] [address] [address] [address] Beverly Kraft Chloride [Moles/Vol] 102 mmol/L Normal 98-[address] [facility] Comment on above: Performed By: #### L IPID, BMP, AST, ALT #### [facility] [address] [address] [address] Beverly Kraft CO2 [Moles/Vol] 29.1 mmol/L Normal 21.0-32.[address] [facility] Comment on above: Performed By: #### L IPID, BMP, AST, ALT #### [facility] [address] [place] [address] Dr. Beverly Kraft Creatinine [Mass/Vol] 0.87 mg/dL Normal 0.70-1.[address] [facility] Comment on above: Performed By: #### L IPID, BMP, AST, ALT #### [facility] [address] [place] [address] Dr. Beverly Kraft EGFR-AF SAO TOMEAN >60 Normal >=[address] [facility] Comment on above: Performed By: #### L IPID, BMP, AST, ALT #### [facility] [address] [address] [address] Beverly Kraft EGFR-NON AF SAO TOMEAN >60 Normal >=60 [facility] Comment on above: Performed By: #### L IPID, BMP, AST, ALT #### [facility] [address] [address] [address] Beverly Kraft Glucose [Mass/Vol] 113 mg/dL Critically high 74-106 [facility] Comment on above: Performed By: #### L IPID, BMP, AST, ALT #### [facility] [address] [address] [address] Beverly Kraft Potassium [Moles/Vol] 4.1 mmol/L Normal 3.5-5.1 [facility] Comment on above: Performed By: #### L IPID, BMP, AST, ALT #### [facility] [address] [place] [address] Dr. Beverly Kraft Sodium [Moles/Vol] 140 mmol/L Normal 136-145 [facility] Comment on above: Performed By: #### L IPID, BMP, AST, ALT #### [facility] [address] [address] [address] Beverly Kraft Urea nitrogen [Mass/Vol] 13.0 mg/dL Normal 7.0-18.0 [facility] Comment on above: Performed By: #### L IPID, BMP, AST, ALT #### [facility] [address] [address] [address] Beverly Kraft Urea nitrogen/Creatinine [Mass ratio] 14.9 mg/mg Normal [facility] Comment on above: Performed By: #### L IPID, BMP, AST, ALT #### [facility] [address] [address] [address] Beverly Mathew 11-10-2022 AST [Catalytic activity/Vol] 21 U/L Normal 15-37 [facility] Comment on above: Performed By: #### L IPID, BMP, AST, ALT #### [facility] [address] [address] [address] Beverly Trinidad 11-10-2022 ALT [Catalytic activity/Vol] 42 U/L Normal 16-63 [facility] Comment on above: Performed By: #### L IPID, BMP, AST, ALT #### [facility] [address] [place] [address] Dr. eBverly Kraft 36on 10-16-2022 36 Called pt for result s. Pt was encouraged to sign up for MyChart, pt does not know email address to resend code and will call back. Pt states that he is seeing pain mgmt and does not want to schedule visit at this time. Normal [facility] 36 Patient calling abou t xray results requesting follow up [facility] Telephoneon 10-16-2022 Telephone [phone] Laxmi Torres 1975 M Date Provider Department Center 10/16/2022 ENEDINA BOYD [facility] [email or web address] SURG Second Fl Family History Adopted: Yes Normal [facility] DEPAKENE/ VALPROIC ACIDon DEPAKENE 79.9 ug/ml Normal 50.0-100.0 [facility] Comment on above: Performed By: #### V ALP #### [facility] [address] [place] [address] Dr. Beverly Kraft CBC AUTO DIFFon 01-29-2022 BASO # 0.0 103/ul Normal 0.0-0.1 [facility] Comment on above: Performed By: #### L IPID, BMP, AST, ALT #### [facility] [address] [place] [address] Dr. Beverly Kraft Basophils/100 WBC (Bld) 0.5 % Normal 0.2-2.0 [facility] Comment on above: Performed By: #### L IPID, BMP, AST, ALT #### [facility] [address] [place] [address] Dr. Beverly Kraft EO # 0.3 103/ul Normal 0.0-0.7 [facility] Comment on above: Performed By: #### L IPID, BMP, AST, ALT #### [facility] [address] [place] [address] Dr. Beverly Kraft Eosinophils/100 WBC (Bld) 4.4 % Normal 0.9-7.0 [facility] Comment on above: Performed By: #### L IPID, BMP, AST, ALT #### [facility] [address] [place] [address] Dr. Beverly Kraft Erythrocyte distribution width (RBC) [Ratio] 12.9 % Normal 11.0-15.[address] [facility] Comment on above: Performed By: #### L IPID, BMP, AST, ALT #### [facility] [address] [place] [address] Dr. Beverly Kraft Hematocrit (Bld) [Volume fraction] 44.0 % Normal 42.0-54.0 [facility] Comment on above: Performed By: #### L IPID, BMP, AST, ALT #### [facility] [address] [place] [address] Dr. Beverly Kraft Hemoglobin (Bld) [Mass/Vol] 14.9 g/dL Normal 14.0-18.0 [facility] Comment on above: Performed By: #### L IPID, BMP, AST, ALT #### [facility] [address] [place] [address] Dr. Beverly Kraft IG # 0.02 10e3/ul Normal 0.00-0.03 [facility] Comment on above: Performed By: #### L IPID, BMP, AST, ALT #### [facility] [address] [place] [address] Dr. Beverly Kraft IG % 0.3 % Normal 0.0-0.[address] [facility] Comment on above: Performed By: #### L IPID, BMP, AST, ALT #### [facility] [address] [place] [address] Dr. Beverly Kraft LYMPH # 2.0 103/ul Normal 1.2-3.[address] [facility] Comment on above: Performed By: #### L IPID, BMP, AST, ALT #### [facility] [address] [place] [address] Dr. Beverly Kraft Lymphocytes/100 WBC (Bld) 34.7 % Normal 20.5-60.[address] [facility] Comment on above: Performed By: #### L IPID, BMP, AST, ALT #### [facility] [address] [place] [address] Dr. Beverly Kraft MANUAL DIFF REQ NO Normal [facility] Comment on above: Performed By: #### L IPID, BMP, AST, ALT #### [facility] [address] [place] [address] Dr. Beverly Kraft MCH (RBC) [Entitic mass] 29.9 pg Normal 25.9-34.[address] [facility] Comment on above: Performed By: #### L IPID, BMP, AST, ALT #### [facility] [address] [place] [address] Dr. Beverly Kraft MCHC (RBC) [Mass/Vol] 33.9 g/dL Normal 29.9-35.[address] [facility] Comment on above: Performed By: #### L IPID, BMP, AST, ALT #### [facility] [address] [place] [address] Dr. Beverly Kraft MCV (RBC) [Entitic vol] 88.2 fL Normal 80.0-94.[address] [facility] Comment on above: Performed By: #### L IPID, BMP, AST, ALT #### [facility] [address] [place] [address] Dr. Beverly Kraft MONO # 0.6 103/ul Normal 0.3-0.[address] [facility] Comment on above: Performed By: #### L IPID, BMP, AST, ALT #### [facility] [address] [place] [address] Dr. Beverly Kraft Monocytes/100 WBC (Bld) 10.3 % Normal 1.7-12.[address] [facility] Comment on above: Performed By: #### L IPID, BMP, AST, ALT #### [facility] [address] [place] [address] Dr. Beverly Kraft NEUT # 2.9 103/ul Normal 1.4-6.[address] [facility] Comment on above: Performed By: #### L IPID, BMP, AST, ALT #### [facility] [address] [place] [address] Dr. Beverly Kraft Neutrophils/100 WBC (Bld) 49.8 % Normal 43.0-75.0 [facility] Comment on above: Performed By: #### L IPID, BMP, AST, ALT #### [facility] [address] [place] [address] Dr. Beverly Kraft Platelet mean volume (Bld) [Entitic vol] 8.8 fL Critically low 9.5-13.5 [facility] Comment on above: Performed By: #### L IPID, BMP, AST, ALT #### [facility] [address] [place] [address] Dr. Beverly Kraft PLT 166 103/ul Normal 150-450 [facility] Comment on above: Performed By: #### L IPID, BMP, AST, ALT #### [facility] [address] [place] [address] Dr. Beverly Kraft RBC 4.99 106/ul Normal 4.70-6.10 [facility] Comment on above: Performed By: #### L IPID, BMP, AST, ALT #### [facility] [address] [place] [address] Dr. Beverly Kraft WBC 5.9 103/ul Normal 4.0-11.0 [facility] Comment on above: Performed By: #### L IPID, BMP, AST, ALT #### [facility] [address] [place] [address] Dr. Beverly Kraft FREE T4on 01-29-2022 Free T4 [Mass/Vol] 0.77 ng/dL Normal 0.76-1.46 [facility] Comment on above: Performed By: #### L IPID, BMP, AST, ALT #### [facility] [address] [place] [address] Dr. Beverly Kraft MAGNESIUMon 01-29-2022 Magnesium [Mass/Vol] 1.9 mg/dL Normal 1.8-2.4 [facility] Comment on above: Performed By: #### C MP, TSH, MG #### [facility] [address] [address] [address] Beverly Kraft PROF 14(COMP METB)on 022 Albumin [Mass/Vol] 4.2 g/dL Normal 3.4-5.0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 [facility] Monocytes (Bld) [#/Vol] 0.7 10*3/uL Normal 0.1-1.0 [facility] Comment on above: Performed By: #### 5 0103 #### [facility] [address] [facility] [place] [address], [facility] MONOS 8.6 % Normal 5.0-12.0 [facility] Comment on above: Performed By: #### 5 0103 #### [facility] [address] [facility] [place] [address], [facility] Neutrophils/100 WBC (Bld) 56.8 % Normal 40.0-72.0 [facility] Comment on above: Performed By: #### 5 3 #### [facility] [address] [facility] [place] [address], [facility] Nucleated RBC/100 WBC (Bld) [Ratio] 0 % Normal 0-0 [facility] Comment on above: Performed By: #### 5 3 #### [facility] [address] [place] [address], [facility] PLAT CNT 175 10*3/uL Normal 150-400 [facility] Comment on above: Performed By: #### 5 3 #### [facility] [address] [place] [id number], [facility] RBC (Bld) [#/Vol] 5.84 10*6/uL High 4.20-5.70 The [facility] Comment on above: Performed By: #### 5 0103 #### [facility] [address] WBC (Bld) [#/Vol] 8.07 10*3/uL Normal 4.00-10.60 [facility] Comment on above: Performed By: #### 5 0103 #### [facility] [address] MAGNESIUM BLOODon 03-10-2021 Magnesium [Mass/Vol] 1.9 mg/dL Normal 1.9-2.7 [facility] Comment on above: Performed By: #### 3 5200, 43763, 09558, 99065 #### [facility] [address] [facility] POC SARS COV2 ANTIGEN NEGATI VEon 03-10-2021 POC SARS COV2 ANTIGEN NEG Negative Normal NEGATIVE [facility] Comment on above: Result Comment: Nega tive results from patients with symptom onset beyond seven days, should be treated presumptive and confirmation with a molecular assay, if necessary, for patient management, may be performed. Negative results do not rule out SARS-CoV-2 infection and should not be used as the sole basis for treatment or patient management decisions, including infection control decisions. Negative results should be considered in the context of a patient?s recent exposures, history and the presence of clinical signs and symptoms consistent with COVID-19. The [employer] COVID-19 Ag Card is a lateral flow immunoassay intended for the qualitative detection of nucleocapsid protein antigen from SARS-CoV-2 in direct nasal swabs from individuals within the first seven days of symptom onset. Testing is limited to laboratories certified under the Clinical Laboratory Improvement Amendments of 1988 (CLIA), 42 U.S.C. ???263a, that meet the requirements to perform moderate, high or waived complexity tests. This test is authorized for use at the Point of Care (POC), i.e., in patient care settings operating under a CLIA Certificate of Waiver, Certificate of Compliance, or Certificate of Accreditation. Performed By: #### 3 1975 #### [address] PORTABLE CHEST 1 VIEWon 02-20 PORTABLE CHEST 1 VIEW [facility] Radiology [address] [place] [id number] ======== Patient Name: MELISSALAXMI : 1975 Sex: M Age: Race: White Pt. Location: [facility] Patient Status: E Ordered Date: 03/10/2021 2:25:00 PM Completed Date: 03/10/2021 03:10 PM Requesting Provider: MEERA DELA CRUZ Attending Provider: LAXMI COOPER Report Copy To: Signs & Symptoms: Chest Pain History: Comments: Evaluate for Cardiomegaly Exam: PORTABLE CHEST 1 VIEW ======== CLINICAL INFORMATION: pt states having high blood pressure. Chest Pain. COMPARISON: 04/05/2015. VIEWS: 1. IMPRESSION: 1. No pulmonary edema or significant consolidation. Minimal basilar atelectasis versus scarring with elevation of the right hemidiaphragm. Stable cardiomediastinal silhouette. Cervical spinal fusion hardware is noted. Electronically signed: Guillaume Barnes. Transcribed by: [email or web address], User Resident: Electronically Signed by: GUILLAUME BARNES @ 03/10/2021 03:12 PM Normal [facility] Comment on above: Order Comment: Evalu ate for Cardiomegaly TROPONIN-Ion 03-10-2021 Troponin I.cardiac [Mass/Vol] 0.01 ng/mL Normal 0.00-0.04 [facility] Comment on above: Result Comment: HARRIS BARROSO RANGES: 0.00 - 0.04 ng/ml NORMAL 0.05 - 0.50 ng/ml INDETERMINATE > 0.50 ng/ml CONSISTENT WITH AN M.I. Performed By: #### 3 5200, 94391, 00946, 61019 #### [facility] [address] [facility]. [address] TSH3 WITH REFLEX FT4on 03-10 TSH 3RD GENERATION 3.82 uIU/mL Normal 0.34-5.60 [facility] Comment on above: Performed By: #### 3 5200, 23129, 75493, 82544 #### [facility] [address] [facility] Coding Summaryon 05-23-2017 Coding Summary CODING DATE: 05/23/2017 [facility] STATUS: Home PAYOR: Medicare APC DESCRIPTION 5024 Level 4 Type A ED Visits ADMIT DX: REASON FOR VISIT DX: R45.851 Suicidal ideations FINAL DX: PRINCIPAL: F63.81 Intermittent explosive disorder SECONDARY: F60.3 Borderline personality disorder F31.9 Bipolar disorder, unspecified F63.9 Impulse disorder, unspecified F79 Unspecified intellectual disabilities E11.9 Type 2 diabetes mellitus without complications I10 Essential (primary) hypertension Z79.899 Other prison (current) drug therapy PYMT PROC APC STAT DESCRIPTION DOCTOR NAME DATE NOTE: The code number assigned matches the documented diagnosis and / or procedure in the patient's chart. However, the narrative phrase printed from the coding software may appear abbreviated, or result in slightly different terminology. Revised Coded By: Irwin Gorman' Revised Date Saved: 02/12/2017 05:24 pm Normal [facility] Coding Summaryon 02-12-2017 Coding Summary CODING DATE: 02/12/2017 [facility] STATUS: Home PAYOR: Medicare ADMIT DX: REASON FOR VISIT DX: R45.851 Suicidal ideations FINAL DX: PRINCIPAL: F63.81 Intermittent explosive disorder SECONDARY: F60.3 Borderline personality disorder F31.9 Bipolar disorder, unspecified F63.9 Impulse disorder, unspecified F79 Unspecified intellectual disabilities E11.9 Type 2 diabetes mellitus without complications I10 Essential (primary) hypertension Z79.899 Other prison (current) drug therapy PROCEDURES DOCTOR NAME DATE NOTE: The code number assigned matches the documented diagnosis and / or procedure in the patient's chart. However, the narrative phrase printed from the coding software may appear abbreviated, or result in slightly different terminology. Coded By: Dameon Gorman Date Saved: 02/12/2017 05:24 pm [place] Coding Summaryon 02-08-2017 Coding Summary CODING DATE: 02/08/2017 [facility] STATUS: Home PAYOR: Medicare ADMIT DX: REASON FOR VISIT DX: R45.851 Suicidal ideations FINAL DX: PRINCIPAL: F63.81 Intermittent explosive disorder SECONDARY: F60.3 Borderline personality disorder F31.9 Bipolar disorder, unspecified F63.9 Impulse disorder, unspecified F79 Unspecified intellectual disabilities E11.9 Type 2 diabetes mellitus without complications I10 Essential (primary) hypertension PROCEDURES DOCTOR NAME DATE NOTE: The code number assigned matches the documented diagnosis and / or procedure in the patient's chart. However, the narrative phrase printed from the coding software may appear abbreviated, or result in slightly different terminology. Coded By: Dameon Gorman Date Saved: 02/08/2017 09:23 am [place] Basic Metabolic Profon 01-16 (cont.) [facility] Comment on above: Result Comment: Aver age GFR for 30-39 years old: 107 mL/min/1.73sq mChronic Kidney Disease: <60 mL/min/1.73sq mKidney failure: <15 mL/min/1.73sq meGFR calculated using average adult body mass. Additional eGFR calculator available at:[email or web address] [address] [place] [address] ([phone] Performed By: #### C DP, BMP ####[place] [address] [place], [place] [id number] Anion gap 18 mmol/L High 9-17 [facility] Comment on above: Performed By: #### C DP, BMP ####[facility] [address] [place] [address] Calcium 9.4 mg/dL Normal 8.6-10.4 [facility] Comment on above: Performed By: #### C DP, BMP ####[facility] [address] [place] [address] Chloride 105 mmol/L Normal 98-107 [facility] Comment on above: Performed By: #### C DP, BMP ####[facility] [place] [address] CO2 22 mmol/L Normal 20-31 [facility] Comment on above: Performed By: #### C DP, BMP ####[facility] [place] [address] Creatinine 0.70 mg/dL Normal 0.70-1.20 [facility] Comment on above: Performed By: #### C DP, BMP ####[facility] [address] [place] [address] eGFR (non-black) mL/min/{1.73_m2} Normal >60 [facility] Comment on above: Performed By: #### C DP, BMP ####[facility] [address] [place] [address] Glucose mass conc 107 mg/dL High 70-99 [facility] Comment on above: Performed By: #### C DP, BMP ####[facility] [place] [address] Potassium molar conc 3.8 mmol/L Normal 3.7-5.3 [facility] Comment on above: Performed By: #### C DP, BMP ####[facility] [address] [place] [address] Sodium 145 mmol/L High 135-144 [facility] Comment on above: Performed By: #### C DP, BMP ####[address] [address] Urea nitrogen 10 mg/dL Normal -20 [facility] Comment on above: Performed By: #### C DP, BMP ####[address] [address] BUN/CRE Ratio NOT REPORTED Normal - [facility] Comment on above: Performed By: #### C DP, BMP ####[address] [address] Staging: NOT REPORTED Normal [facility] Comment on above: Performed By: #### C DP, BMP ####[address] [address] CBC with Diffon 01-16-2017 Abs. Basophil 0.00 k/uL Normal 0.0-0.2 [facility] Comment on above: Result Comment: [place] [address] [place] [address] Performed By: #### C DP, BMP ####[address] [address] Abs.Neutrophil (Seg) 3.50 k/uL Normal 1.8-7.7 [facility] Comment on above: Performed By: #### C DP, BMP ####[address] [address] Basophils/100 WBC Auto (Bld) 0 % Normal [facility] Comment on above: Performed By: #### C DP, BMP ####[address] [address] Eosinophils 0.20 10*3/uL Normal 0.0-0.4 [facility] Comment on above: Performed By: #### C DP, BMP ####[facility] Center[facility] Node SoftwareGcesqllgsaaw0526 [place] [address] Eosinophils/100 leukocytes 3 % Normal [facility] Comment on above: Performed By: #### C DP, BMP ####[facility] [address] [place] [address] Erythrocyte distribution width Auto Ratio (RBC) 13.8 % Normal 12.5-15.4 [facility] Comment on above: Performed By: #### C DP, BMP ####[facility] [address] [place] [address] Erythrocytes (RBC) 5.13 10*6/uL Normal 4.5-5.9 [facility] Comment on above: Performed By: #### C DP, BMP ####[facility] [address] [address] Hematocrit (HCT) 43.2 % Normal 41-53 [facility] Comment on above: Performed By: #### C DP, BMP ####[facility] HullDxqtpkctvqq[address] [place] [address] Hemoglobin mass conc (Bld) 14.6 g/dL Normal 13.5-17.5 [facility] Comment on above: Performed By: #### C DP, BMP ####[facility] [address] [address] Lymphocytes 2.10 10*3/uL Normal 1.0-4.8 [facility] Comment on above: Performed By: #### C DP, BMP ####[facility] [address] [place] [address] Lymphocytes/100 leukocytes 32 % Normal [facility] Comment on above: Performed By: #### C DP, BMP ####[facility] [address] [place] [address] MCH 28.4 pg Normal 26-34 [facility] Comment on above: Performed By: #### C DP, BMP ####[facility] [place] [address] MCHC mass conc (RBC) 33.8 g/dL Normal 31-37 [facility] Comment on above: Performed By: #### C DP, BMP ####[address] [place] [address] MCV 84.2 fL Normal 80-100 [facility] Comment on above: Performed By: #### C DP, BMP ####[address] [address] Monocytes 0.80 10*3/uL Normal 0.1-1.2 [facility] Comment on above: Performed By: #### C DP, BMP ####[address] [address] Monocytes/100 leukocytes 12 % Normal [facility] Comment on above: Performed By: #### C DP, BMP ####[address] [address] Neutrophil (Seg) 53 % Normal [facility] Comment on above: Performed By: #### C DP, BMP ####[address] [address] Platelet mean volume (PMV) 7.6 fL Normal 6.0-12.0 [facility] Comment on above: Performed By: #### C DP, BMP ####[address] [address] Platelets 171 10*3/uL Normal 140-450 [facility] Comment on above: Performed By: #### C DP, BMP ####[address] [address] WBC (Leukocytes) 6.6 10*3/uL Normal 3.5-11.0 [facility] Comment on above: Performed By: #### C DP, BMP ####[facility] [address] [place] [address] Auto Diff Performed NOT REPORTED Normal [facility] Comment on above: Performed By: #### C DP, BMP ####[facility] [address] [place] [address] Erythrocyte morphology NOT REPORTED Normal [facility] Comment on above: Performed By: #### C DP, BMP ####[facility] [id number] [place] [address] Platelets NOT REPORTED Normal [facility] Comment on above: Performed By: #### C DP, BMP ####[facility] [id number] [place] [address] WBC Morphology NOT REPORTED Normal [facility] Comment on above: Performed By: #### C DP, BMP ####[facility] [address] [place] [address] Coding Queryon 01-16-2017 Coding Query Can you please document for this patient's visit?Thanks.[Electron ellyn Signed on: 02/17/2017 20:10 EDT] Carolyn Otero[Verified on: 02/17/2017 20:10 EDT] Caorlyn Otero[Transcribed on: 01/16/2017 14:23 EDT]RR Normal [facility] Discharge Summaryon 01-17-20 17 HIM IP Note OR Patient Carrier Normal [facility] Vital Signs Date Time Vital Sign Value Performing Clinician Facility 09-10-2024 13:23-0500 Diastolic blood pressure 98 mm[Hg] Guillaume BARRERA Work Phone: [facility] 09-10-2024 13:23-0500 Heart rate 108 /min Guillaume Earle PA Work Phone: [facility] 09-10-2024 13:23-0500 Respiratory rate 16 /min Guillaume Earle PA Work Phone: [facility] 09-10-2024 13:23-0500 SaO2% (BldA) [Mass fraction] 99 % Guillaume Candicemartín PA Work Phone: [facility] 09-10-2024 13:23-0500 Systolic blood pressure 119 mm[Hg] Guillaume Steve PA Work Phone: [facility] 09-02-2024 12:34-0500 Body height 182.9 cm Myla Verhoff PA-C Work Phone: [facility] 09-02-2024 12:34-0500 Body mass index (BMI) [Ratio] 31.33 kg/m2 Myla Verhoff PA-C Work Phone: [facility] 09-02-2024 12:34-0500 Body weight 104.78 kg Myla Verhoff PA-C Work Phone: [facility] 09-02-2024 12:34-0500 Diastolic blood pressure 80 mm[Hg] Myla Verhoff PA-C Work Phone: [facility] 09-02-2024 12:34-0500 Heart rate 85 /min Myla Verhoff PA-C Work Phone: [facility] 09-02-2024 12:34-0500 Respiratory rate 18 /min Myla Verhoff PA-C Work Phone: [facility] 09-02-2024 12:34-0500 SaO2% (BldA) [Mass fraction] 100 % Myla Verhoff PA-C Work Phone: [facility] 09-02-2024 12:34-0500 Systolic blood pressure 121 mm[Hg] Myla Rm PA-C Work Phone: [facility] 07-30-2024 13:03-0500 Body height 177.8 cm Pmh 1 [facility] 07-30-2024 13:03-0500 Body mass index (BMI) [Ratio] 32.71 kg/m2 Pmh 1 [facility] 07-30-2024 13:03-0500 Body weight 103.42 kg Pmh 1 [facility] 06-09-2024 14:46-0500 Diastolic blood pressure 98 mm[Hg] Cinda Nienberg 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 Work Phone: [facility] 06-09-2024 14:46-0500 Heart rate 100 /min Cinda Nienberg 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 Work Phone: [facility] 06-09-2024 14:46-0500 Respiratory rate 20 /min Cinda Nienberg 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 Work Phone: [facility] 06-09-2024 14:46-0500 Systolic blood pressure 129 mm[Hg] Cinda Nienberg 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 Work Phone: [facility] 05-11-2024 14:01-0400 Body height 177.8 cm Justin Underwood MD Work Phone: [facility] 05-11-2024 14:01-0400 Body mass index (BMI) [Ratio] 33.2 kg/m2 Justin Underwood MD Work Phone: [facility] 05-11-2024 14:01-0400 Body temperature 98.71 [degF] Justin Underwood MD Work Phone: [facility] 05-11-2024 14:01-0400 Body weight 104.96 kg Justin Underwood MD Work Phone: [facility] 05-11-2024 14:01-0400 Diastolic blood pressure 78 mm[Hg] Justin Underwood MD Work Phone: [facility] 05-11-2024 14:01-0400 Heart rate 78 /min Justin Underwood MD Work Phone: [facility] 05-11-2024 14:01-0400 SaO2% (BldA) [Mass fraction] 98 % Justin Underwood MD Work Phone: [facility] 05-11-2024 14:01-0400 Systolic blood pressure 118 mm[Hg] Justin Underwood MD Work Phone: [facility] 04-30-2024 14:20-0400 Diastolic blood pressure 84 mm[Hg] Guillaume Steve PA Work Phone: [facility] 04-30-2024 14:20-0400 Heart rate 84 /min Guillaume Steve PA Work Phone: [facility] 04-30-2024 14:20-0400 Respiratory rate 16 /min Guillaume Steve PA Work Phone: [facility] 04-30-2024 14:20-0400 SaO2% (BldA) [Mass fraction] 97 % Guillaume Steve PA Work Phone: [facility] 04-30-2024 14:20-0400 Systolic blood pressure 116 mm[Hg] Guillaume Steve PA Work Phone: [facility] 04-07-2024 13:48-0400 Body height 177.8 cm Pmh 1 [facility] 04-07-2024 13:48-0400 Body mass index (BMI) [Ratio] 32.71 kg/m2 Pmh 1 [facility] 04-07-2024 13:48-0400 Body weight 103.42 kg Pmh 1 [facility] 03-12-2024 13:46-0400 Body height 177.8 cm Guillaume Steve PA Work Phone: [facility] 03-12-2024 13:46-0400 Body mass index (BMI) [Ratio] 32.71 kg/m2 Guillaume Steve PA Work Phone: [facility] 03-12-2024 13:46-0400 Body weight 103.42 kg Guillaume Steve PA Work Phone: [facility] 03-12-2024 13:46-0400 Diastolic blood pressure 86 mm[Hg] Guillaume Steve PA Work Phone: [facility] 03-12-2024 13:46-0400 Heart rate 104 /min Guillaume Steve PA Work Phone: [facility] 03-12-2024 13:46-0400 Respiratory rate 18 /min Guillaume Steve PA Work Phone: [facility] 03-12-2024 13:46-0400 SaO2% (BldA) [Mass fraction] 100 % Guillaume Steve PA Work Phone: [facility] 03-12-2024 13:46-0400 Systolic blood pressure 122 mm[Hg] Guillaume Steve PA Work Phone: [facility] 03-09-2024 14:55-0400 Body height 177.8 cm Justin Underwood MD Work Phone: [facility] 03-09-2024 14:55-0400 Body mass index (BMI) [Ratio] 32.83 kg/m2 Justin Underwood MD Work Phone: [facility] 03-09-2024 14:55-0400 Body temperature 97.59 [degF] Justin Underwood MD Work Phone: [facility] 03-09-2024 14:55-0400 Body weight 103.78 kg Justin Underwood MD Work Phone: [facility] 03-09-2024 14:55-0400 Diastolic blood pressure 82 mm[Hg] Justin Underwood MD Work Phone: [facility] 03-09-2024 14:55-0400 Heart rate 86 /min Justin Underwood MD Work Phone: [facility] 03-09-2024 14:55-0400 SaO2% (BldA) [Mass fraction] 99 % Justin Underwood MD Work Phone: [facility] 03-09-2024 14:55-0400 Systolic blood pressure 130 mm[Hg] Justin Underwood MD Work Phone: [facility] 01-02-2024 11:39-0400 Body height 177.8 cm Guillaume Nienberg PA Work Phone: [facility] 01-02-2024 11:39-0400 Body mass index (BMI) [Ratio] 33.43 kg/m2 Guillaume Nienberg PA Work Phone: [facility] 01-02-2024 11:39-0400 Body weight 105.69 kg Guillamue Nienberg PA Work Phone: [facility] 01-02-2024 11:39-0400 Diastolic blood pressure 86 mm[Hg] Guillaume Nienberg PA Work Phone: [facility] 01-02-2024 11:39-0400 Heart rate 105 /min Guillaume Nienberg PA Work Phone: [facility] 01-02-2024 11:39-0400 Respiratory rate 14 /min Guillaume Nienberg PA Work Phone: [facility] 01-02-2024 11:39-0400 SaO2% (BldA) [Mass fraction] 97 % Guillaume Nienberg PA Work Phone: [facility] 01-02-2024 11:39-0400 Systolic blood pressure 118 mm[Hg] Guillaume Nienberg PA Work Phone: [facility] 10-29-2023 14:37-0400 Diastolic blood pressure 85 mm[Hg] Guillaume Nienberg PA Work Phone: [facility] 10-29-2023 14:37-0400 Heart rate 107 /min Guillaume Nienberg PA Work Phone: [facility] 10-29-2023 14:37-0400 Respiratory rate 18 /min Guillaume Steve PA Work Phone: [facility] 10-29-2023 14:37-0400 SaO2% (BldA) [Mass fraction] 99 % Guillaume Steve PA Work Phone: [facility] 10-29-2023 14:37-0400 Systolic blood pressure 111 mm[Hg] Guillaume Steve PA Work Phone: [facility] 10-03-2023 13:33-0400 Diastolic blood pressure 98 mm[Hg] Guillaume Steve PA Work Phone: [facility] 10-03-2023 13:33-0400 Heart rate 100 /min Guillaume Steve PA Work Phone: [facility] 10-03-2023 13:33-0400 Respiratory rate 20 /min Guillaume Steve PA Work Phone: [facility] 10-03-2023 13:33-0400 Systolic blood pressure 131 mm[Hg] Guillaume Steve PA Work Phone: [facility] 09-25-2023 11:43-0500 Body height 177.8 cm Justin Underwood MD Work Phone: [facility] 09-25-2023 11:43-0500 Body mass index (BMI) [Ratio] 33.86 kg/m2 Justin Underwood MD Work Phone: [facility] 09-25-2023 11:43-0500 Body temperature 98.1 [degF] Justin Underwood MD Work Phone: [facility] 09-25-2023 11:43-0500 Body weight 107.05 kg Justin Underwood MD Work Phone: [facility] 09-25-2023 11:43-0500 Diastolic blood pressure 74 mm[Hg] Justin Underwood MD Work Phone: [facility] 09-25-2023 11:43-0500 Heart rate 108 /min Justin Underwood MD Work Phone: [facility] 09-25-2023 11:43-0500 SaO2% (BldA) [Mass fraction] 97 % Justin Underwood MD Work Phone: [facility] 09-25-2023 11:43-0500 Systolic blood pressure 114 mm[Hg] Justin Underwood MD Work Phone: [facility] 09-03-2023 13:46-0500 Diastolic blood pressure 89 mm[Hg] Guillaume BARRERA Work Phone: [facility] 09-03-2023 13:46-0500 Heart rate 100 /min Guillaume BARRERA Work Phone: [facility] 09-03-2023 13:46-0500 Respiratory rate 20 /min Guillaume BARRERA Work Phone: [facility] 09-03-2023 13:46-0500 Systolic blood pressure 121 mm[Hg] Guillaume BARRERA Work Phone: [facility] 08-29-2023 13:51-0500 Body height 177.8 cm Dionen Barlow DPM Work Phone: [facility] 08-29-2023 13:51-0500 Body mass index (BMI) [Ratio] 33 kg/m2 Dionne BARNESM Work Phone: [facility] 08-29-2023 13:51-0500 Body weight 104.33 kg Dionne BARNESM Work Phone: [facility] Healthcare Encounters Encounter Date Encounter Type Care Provider Facility Start: 09-21-2024 [facility] Start: 09-10-2024 End: 09-10-2024 Office outpatient visit 15 minutes Myla Rm PA-C Work Phone: [facility] Comment on above: Lumbar post-laminect rojelio syndrome (Primary Dx) Start: 09-10-2024 End: 09-10-[address] [facility] Start: 09-09-2024 End: 09-17-2024 Telephone encounter Ofelia Barrientos RN [facility] Start: 09-09-2024 End: 09-09-2024 amb[address] GUNNAR Brent CORRALES [facility] Start: 09-07-2024 End: 09-07-2024 Justice Underwood MD Work Phone: [facility] Comment on above: Parkinson's disease ([facility]) (Primary Dx); Type 2 diabetes mellitus treated without insulin ([facility]); Chronic GERD; Seasonal allergies Start: 09-02-2024 [facility] Start: 09-02-2024 End: 09-02-2024 Office outpatient visit 25 minutes Myla Rm PA-C Work Phone: [facility] Comment on above: Left shoulder pain, unspecified chronicity Start: 09-02-2024 End: 09-02-2024 ambulatory MYLA N [facility] Start: 08-18-2024 End: 08-18-2024 Evaluation and management of inpatient MITCHELL Quigley PERALES [facility] Start: 08-14-2024 End: 08-18-2024 Evaluation and management of inpatient [facility] Start: 08-14-2024 End: 08-14-2024 Evaluation and management of inpatient [facility] Start: 07-30-2024 End: 07-30-[address] [facility] Start: 07-30-2024 End: 07-30-2024 Patient encounter procedure [facility] Pre-Admission Testing 1 [facility] Comment on above: Preop examination (P rimary Dx); Hypertension, unspecified type; Type 2 diabetes mellitus without complication, without long-term current use of insulin ([facility]) Start: 07-30-2024 End: 07-30-2024 Preprocedural examination done Pmh 1 [facility] Start: 07-28-2024 End: 07-29-2024 Refill Justin Underwood MD Work Phone: [facility] Comment on above: Parkinson's disease ([facility]) (Primary Dx); Type 2 diabetes mellitus treated without insulin ([facility]); Disc displacement, lumbar Start: 07-24-2024 End: 08-07-2024 Refill Bernie Juan CNA [facility] Comment on above: SCS Battery Revision Start: 07-07-2024 End: 07-07-2024 ambulatory [facility] Start: 06-30-2024 End: 06-30-2024 Orders Only Justin Underwood MD Work Phone: [facility] Start: 06-29-2024 End: 06-29-2024 Refill Justin Underwood MD Work Phone: [facility] Comment on above: Parkinson's disease ([facility]) (Primary Dx); Type 2 diabetes mellitus treated without insulin ([facility]); Type 2 diabetes mellitus without complication, without long-term current use of insulin ([facility]) Start: 06-23-2024 End: 06-23-2024 Refill Debra Rosales CMA [facility] Comment on above: Disc displacement, l umbar Start: 06-12-2024 End: 06-12-2024 Refill Bernie Juan CNA [facility] Comment on above: Hypertriglyceridemia Start: 06-09-2024 End: 06-09-2024 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 Work Phone: [facility] Comment on above: Lumbar post-laminect rojelio syndrome (Primary Dx) Start: 06-09-2024 End: 06-09-2024 ambulatory [facility] Start: 06-04-2024 End: 06-23-2024 Telephone encounter Debra Millardz [facility] Start: 06-02-2024 End: 06-09-2024 Telephone encounter Chelsey Parker RN [facility] Start: 05-11-2024 End: 05-11-2024 ambulatory JUSTIN UNDERWOOD [facility] Start: 05-11-2024 End: 05-11-2024 Office outpatient visit 25 minutes Justin Underwood MD Work Phone: [facility] Comment on above: Disc displacement, l umbar (Primary Dx); Type 2 diabetes mellitus without complication, without long-term current use of insulin ([facility]); Obesity, morbid ([facility]); Hypercholesteremia; Immunization counseling; Encounter for immunization Start: 04-30-2024 End: 04-30-2024 Office outpatient visit 15 minutes Guillaume BARRERA Work Phone: [facility] Comment on above: Postlaminectomy synd adams of lumbar region (Primary Dx) Start: 04-30-2024 End: 04-30-2024 ambulatory [facility] Brent [facility] Start: 04-28-2024 End: 04-28-2024 Refill Susan Calabrese [facility] Comment on above: Disc displacement, l umbar Start: 04-17-2024 End: 04-17-2024 Evaluation and management of inpatient [facility] Start: 04-14-2024 End: 04-14-2024 Refill Lisa Krause [facility] Comment on above: Disc displacement, l umbar Start: 04-07-2024 Encounter for other preprocedural examination [facility] Start: 04-07-2024 End: 04-07-2024 Refill Lisa Krause [facility] Start: 04-07-2024 End: 04-07-2024 ambulatory [facility] Start: 04-02-2024 End: 04-03-2024 Orders Only Justin Underwood MD Work Phone: [facility] Comment on above: Dysuria (Primary Dx) Start: 03-27-2024 End: 03-30-2024 Telephone encounter Meghana Carrera CMA [facility] Comment on above: Er Follow-up Start: 03-26-2024 End: 03-27-2024 Emergency department patient visit MARY E ZACKCATRACHO [facility] Start: 03-26-2024 End: 03-26-2024 Emergency department patient visit [facility] Start: 03-19-2024 End: 04-10-2024 Refill Ofelia Barrientos RN [facility] Comment on above: Prophylactic antibio tic (Primary Dx) Start: 03-16-2024 End: 03-16-2024 ambulatory [facility] Start: 03-12-2024 End: 03-12-[address] [facility] Start: 03-12-2024 End: 03-12-2024 Office outpatient visit 25 minutes Guillaume BARRERA Work Phone: [facility] Comment on above: Postlaminectomy synd adams of lumbar region (Primary Dx) Start: 03-09-2024 End: 03-09-2024 Patient encounter procedure Justin Underwood MD Work Phone: [facility] Comment on above: MARK (obstructive sle ep apnea) (Primary Dx); Primary cough headache; Episodic tension-type headache, not intractable; Tobacco use Start: 03-09-2024 End: 03-09-2024 [address] [facility] Start: 02-27-2024 End: 02-27-2024 Refill Susan Calabrese [facility] Comment on above: Disc displacement, l umbar Start: 02-22-2024 End: 02-22-[address] [facility] Start: 02-21-2024 End: 02-21-[address] [facility] Start: 01-31-2024 End: 01-31-2024 ambulatory ELHAM SHAFFER Not Available Start: 01-29-2024 End: 01-29-2024 Refill [facility]use [facility] Comment on above: Disc displacement, l umbar Start: 01-26-2024 End: 01-26-2024 Emergency department patient visit [facility] Start: 01-24-2024 End: 01-25-2024 Refill Justin Underwood MD Work Phone: [facility] Comment on above: Parkinson's disease ([facility]) (Primary Dx); Type 2 diabetes mellitus treated without insulin ([facility]); Type 2 diabetes mellitus without complication, without long-term current use of insulin ([facility]) Start: 01-08-2024 End: 01-08-2024 Refill Adysan Sleek [facility] Comment on above: Disc displacement, l umbar Start: 01-02-2024 End: 01-02-2024 Office outpatient visit 25 minutes Guillaume BARRERA Work Phone: [facility] Comment on above: Lumbar post-laminect rojelio syndrome (Primary Dx) Start: 01-02-2024 End: 01-02-[address] [facility] Start: 12-26-2023 End: 12-26-[address] [facility] Start: 12-25-2023 End: 12-25-20[address] amb[address] [facility] Start: 12-25-2023 End: 12-25-2023 Office outpatient visit 25 minutes Justin Underwood MD Work Phone: [facility] Comment on above: Hypertriglyceridemia (Primary Dx); Hypercholesteremia Start: 12-11-2023 End: 12-19-2023 Refill Adysan Sleek [facility] Comment on above: Disc displacement, l umbar Start: 11-27-2023 End: 11-27-2023 Telephone encounter Guillaume BARRERA Work Phone: [facility] Start: 11-06-2023 End: 11-06-2023 Orders Only Justin Underwood MD Work Phone: [facility] Start: 10-29-2023 End: 10-29-2023 Office outpatient visit 25 minutes Guillaume BARRERA Work Phone: [facility] Comment on above: Lumbar post-laminect rojelio syndrome (Primary Dx); Spinal stenosis of lumbar region with neurogenic claudication Start: 10-29-2023 End: 10-29-2023 ambulatory [facility] Brent STEVE [facility] Start: 10-25-2023 Orders Only Justin Underwood MD Work Phone: [facility] Start: 10-24-2023 Telephone encounter Susan Warner MA [facility] Start: 10-23-2023 Refill Susan Calabrese [facility] Comment on above: Disc displacement, l umbar Start: 10-17-2023 Refill Prema Salinas CMA [facility] Comment on above: Disc displacement, l umbar Start: 10-14-2023 Telephone encounter Meghana Warner [place] [facility] [facility] Comment on above: Er Follow-up Disc displacement, l umbar (Primary Dx) Start: 10-13-2023 End: 10-13-2023 Emergency department patient visit JUSTIN UNDERWOOD [facility] Start: 10-10-2023 End: 10-11-2023 ambulatory [facility] Start: 10-10-2023 End: 10-10-2023 ambulatory [facility] Start: 10-03-2023 End: 10-03-2023 Office outpatient visit 15 minutes Guillaume BARRERA Work Phone: [facility] Comment on above: Spinal stenosis of l umbar region with neurogenic claudication (Primary Dx) Start: 10-03-2023 End: 10-03-[address] [facility] Start: 10-01-2023 End: 10-01-2023 ambulatory [facility] Start: 10-01-2023 End: 10-01-2023 amb[address] [facility] Start: 09-25-2023 End: 09-25-2023 Office outpatient visit 25 minutes Justin Underwood MD Work Phone: [facility] Comment on above: Type 2 diabetes erick itus without complication, without long- term current use of insulin ([facility]) (Primary Dx); Parkinson's disease; Schizoaffective disorder, depressive type ([facility]); Seizure disorder ([facility]) Start: 09-25-2023 End: 09-25-2023 amb[address] [facility] Start: 09-24-2023 End: 09-24-2023 ambulatory [facility] Start: 09-16-2023 Telephone encounter Ofelia Barrientos RN Pr [facility] Start: 09-03-2023 End: 09-03-2023 Office outpatient visit 25 minutes Guillaume BARRERA Work Phone: [facility] Comment on above: Spinal stenosis of l umbar region with neurogenic claudication (Primary Dx) Start: 08-29-2023 Bamboo flowsheet Dionne Caldwell er DPM Work Phone: [facility] Start: 08-29-2023 Bamboo flowsheet Dionne Caldwell er DPM Work Phone: [facility] Start: 08-29-2023 End: 08-29-2023 ambulatory DIONNE BARLOW Not Available Start: 08-29-2023 End: 08-29-2023 Office outpatient visit 15 minutes Dionne Barlow DPM Work Phone: [facility] Comment on above: Type 2 diabetes erick itus without complication, without long- term current use of insulin ([facility]) (Primary Dx); Dermatophytosis of nail; Dystrophic nail; Pain around toenail Start: 08-23-2023 Orders Only Justin Underwood MD Work Phone: [facility] Comment on above: Anxiety attack (Prim rebekah Dx) Start: 08-22-2023 Refill Ankita Anusha s CAR CUSTOMIZ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 Work Phone: [facility] Comment on above: Disc displacement, l umbar Start: 08-17-2023 End: 08-17-2023 ambulatory [facility] Ruthann [facility] Start: 08-15-2023 Refill Justin Underwood MD Work Phone: [facility] Comment on above: Primary cough headac he; Disc displacement, lumbar; Type 2 diabetes mellitus without complication, without long-term current use of insulin ([facility]) Start: 07-27-2023 Refill Ankita Roja s CAR CUSTOMIZ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 Work Phone: [facility] Comment on above: Disc displacement, l umbar; Type 2 diabetes mellitus without complication, without long-term current use of insulin ([facility]) Start: 07-22-2023 End: 07-22-2023 ambulatory [facility] Start: 11-10-2022 End: 11-11-[address] DOCTOR SHEEHAN Facility:[facility] Start: 09-10-2022 End: 09-11-[address] DOCTOR SHEEHAN Facility:[facility] Start: 01-29-2022 End: 01-30-[address] RIVERA MISTimmy Facility:[facility] Start: 12-23-2021 End: 12-23-2021 Emergency department patient visit [facility] Start: 10-18-2021 End: 10-18-2021 Emergency department patient visit REFERRED SELF Facility:[email or web address] Start: 10-07-2021 End: 10-07-2021 Emergency department patient visit REFERRED SELF Facility:[email or web address] Start: 08-11-2021 End: 01-21-2022 Emergency department patient visit REFERRED SELF Facility:[facility] [[email or web address] Start: 03-10-2021 End: 03-10-2021 Emergency department patient visit REFERRED SELF Facility:[facility] [[email or web address] Start: 02-26-2021 End: 03-15-2021 ambulatory ARACELIS ROBLES Facility:[facility] [[email or web address] Start: 11-21-2020 End: 11-23-2020 Evaluation and management of inpatient [facility] Start: 01-10-2017 End: 02-08-2017 Emergency department patient visit None Provider Facility:[facility] Procedures Date Procedure Procedure Detail Performing Clinician Start: 03-09-2024 Adult depression scr eening assessment Justin Underwood MD Work Phone: Start: 01-08-2023 Adult depression scr eening assessment Ankita Qiu APRN-MANAGER BUILDING Work Phone: Start: 08-10-2021 Microalbumin [Mass/v olume] in Urine by Test strip Ankita Qiu APRNClassDojo Work Phone: Plan of Treatment Date Care Activity Detail Author Start: 09-10-2025 Tobacco Screening Tobacco Screening [facility] Start: 09-02-2025 Adult BMI Screening Adult BMI Screen ing [facility] Start: 09-02-2025 Tobacco Screening Tobacco Screening [facility] Start: 08-09-2025 DTaP,Tdap and Td Vaccines (2 - Td or Tdap) DTaP,Tdap and Td Vaccines (2 - Td or Tdap) [facility] Start: 07-30-2025 Adult BMI Screening Adult BMI Screen ing [facility] Start: 07-30-2025 Tobacco Screening Tobacco Screening [facility] Start: 06-09-2025 Tobacco Screening Tobacco Screening [facility] Start: 05-11-2025 Adult BMI Screening Adult BMI Screen ing [facility] Start: 05-11-2025 Tobacco Screening Tobacco Screening [facility] Start: 04-30-2025 Tobacco Screening Tobacco Screening [facility] Start: 04-17-2025 Adult BMI Screening Adult BMI Screen ing [facility] Start: 04-17-2025 Tobacco Screening Tobacco Screening [facility] Start: 04-07-2025 Adult BMI Screening Adult BMI Screen ing [facility] Start: 04-07-2025 Tobacco Screening Tobacco Screening [facility] Start: 03-26-2025 Adult BMI Screening Adult BMI Screen ing [facility] Start: 03-26-2025 Tobacco Screening Tobacco Screening [facility] Start: 03-16-2025 Adult BMI Screening Adult BMI Screen ing [facility] Start: 03-12-2025 End: 03-12-2025 Patient encounter procedure 03/12/2025 2:00 PM EDT Office Visit [facility] [address] [place] [address] [phone] Justin Underwood MD [address], [place], [place] [phone] [facility] Start: 03-12-2025 Tobacco Screening Tobacco Screening [facility] Start: 03-09-2025 Adult BMI Screening Adult BMI Screen ing [facility] Start: 03-09-2025 Depression Screening Depression Scre ening [facility] Start: 03-09-2025 Tobacco Screening Tobacco Screening [facility] Start: 02-20-2025 Tobacco Screening Tobacco Screening [facility] Start: 01-25-2025 Adult BMI Screening Adult BMI Screen ing [facility] Start: 01-25-2025 Tobacco Screening Tobacco Screening [facility] Start: 01-01-2025 Adult BMI Screening Adult BMI Screen ing [facility] Start: 01-01-2025 Tobacco Screening Tobacco Screening [facility] Start: 11-11-2024 End: 11-11-2024 Patient encounter procedure 11/11/2024 10:30 AM EDT Office Visit [facility] [address] [place] [phone] Myla Rm, PAKassidyC [address] [place] [address] [facility] Start: 11-09-2024 End: 11-09-2024 Patient encounter procedure 11/09/2024 1:30 PM EDT Office Visit [facility] [address] [place] [address] [place] [phone] Justin Underwood MD [address], [place], [place] [phone] [facility] Start: 10-28-2024 Tobacco Screening Tobacco Screening [facility] Start: 10-23-2024 End: 10-23-2024 Patient encounter procedure 10/23/2024 11:00 AM EDT [facility] [address] [place] [phone] Khadar Cordero MD [address] [address] Eric Young MD [address] [address] [facility] Start: 10-22-2024 End: 10-22-2024 Patient encounter procedure 10/22/2024 12:30 PM EDT Office Visit [facility] [address] [place] [phone] Guillaume Steve, PA [address] [facility], [address]nd [place] [address] [facility] Start: 10-15-2024 Statin Use: Diabetic Statin Use: Anderson betic [facility] Start: 10-12-2024 Tobacco Screening Tobacco Screening [facility] Start: 10-02-2024 Tobacco Screening Tobacco Screening [facility] Start: 09-24-2024 Adult BMI Screening Adult BMI Screen ing [facility] Start: 09-24-2024 Tobacco Screening Tobacco Screening [facility] Start: 09-21-2024 End: 09-21-2024 Patient encounter procedure 09/21/2024 10:45 AM EST Appointment [facility] [address] [place] [phone] [facility] Start: 09-13-2024 Tobacco Screening Tobacco Screening [facility] Start: 09-09-2024 End: 09-09-2024 Patient encounter procedure 09/09/2024 9:30 AM EST Appointment [facility] [address] [place] [phone] Left shoulder pain, unspecified chronicity [facility] Comment on above: Left shoulder pain, unspecified chronicity Start: 09-03-2024 Tobacco Screening Tobacco Screening [facility] Start: 09-02-2024 End: 09-02-2024 Patient encounter procedure 09/02/2024 12:45 PM EST Office Visit [facility] [address] [place] [phone] Myla Rm PAKassidyC [address] [facility], 2nd Floor [place], [place] [phone] [facility] Start: 08-17-2024 Tobacco Screening Tobacco Screening [facility] Start: 08-14-2024 End: 08-14-2024 Admission to same day surgery center 08/14/2024 2:00 PM EST - 08/14/2024 3:00 PM EST Surgery [facility] Surgery [address] [place] [address] Titus Pritchett MD [address], [place] [phone] REVISION STIMULATOR SPINAL CORD [facility] Surgery Comment on above: REVISION STIMULATOR SPINAL CORD Start: 08-14-2024 End: 08-14-2024 Anesthesia consultation 08/14/2024 2:00 PM EST Anesthesia Event [facility] [address] [place] [phone] Mitchell Perales, DO [address] [place] [address] [facility] Start: 08-14-2024 End: 08-14-2024 REVISION STIMULATOR SPINAL CORD REVISION STIMULATOR SPINAL CORD post-laminectomy syndrome 08/14/2024 2:00 PM EST [facility] Start: 08-14-2024 Subsequent hospital visit by physician 08/14/2024 2:00 PM EST Hospital Encounter [facility] [address] [place] [phone] Titus Pritchett MD [address] [place] [address] [facility] Start: 08-05-2024 End: 08-05-2024 Patient encounter procedure 08/05/2024 10:30 AM EST Office Visit [facility] [address] [place], [place] [address] [address] Khadar Cordero MD [address] [address] [facility] Start: 07-30-2024 End: 07-30-2024 Patient encounter procedure 07/30/2024 12:45 PM EST Procedure visit [facility] Admit [address] [place] [phone] [facility] Admit Start: 07-22-2024 Adult BMI Screening Adult BMI Screen ing [facility] Start: 07-22-2024 Tobacco Screening Tobacco Screening [facility] Start: 07-07-2024 End: 07-07-2024 Patient encounter procedure 07/07/2024 1:45 PM EST Office Visit [facility] [address] [place] [phone] Cinda Steve, CAR CUSTOMIZ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 [address] [place] [address] [facility] Start: 06-09-2024 End: 06-09-2024 Patient encounter procedure 06/09/2024 2:45 PM EST Office Visit [facility] [address] [place] [phone] Cinda Steve, CAR CUSTOMIZ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 [address] [place] [address] [facility] Start: 05-11-2024 End: 05-11-2024 Patient encounter procedure 05/11/2024 1:45 PM EDT Office Visit [facility] [address] [place] [phone] Justin Underwood MD [address] [place] [address] [facility] Start: 05-04-2024 End: 05-04-2024 Patient encounter procedure 05/04/2024 9:00 AM EDT Office Visit [facility] [address] [place] [phone] Justin Underwood MD [address] [place] [address] [facility] Start: 04-30-2024 End: 04-30-2024 Patient encounter procedure 04/30/2024 2:15 PM EDT Office Visit [facility] [address] [facility] [place] [phone] Guillaume Steve, BRUCE [address], [address] [place], [place] [phone] [facility] Start: 04-17-2024 End: 04-17-2024 Admission to same day surgery center 04/17/2024 2:00 PM EDT - 04/17/2024 3:30 PM EDT Surgery [facility] [address] [place] [phone] Titus Pritchett MD [address] [place], [place] [phone] INSERTION PERMANENT STIMULATOR SPINAL CORD [87902 (CPT )] [facility] Comment on above: INSERTION PERMANENT STIMULATOR SPINAL CORD [26501 (CPT )] Start: 04-17-2024 End: 04-17-2024 Anesthesia consultation 04/17/2024 2:00 PM EDT Anesthesia Event [facility] [address] [place] [phone] Mitchell Perales, DO [address] [place] [address] [facility] Start: 04-17-2024 End: 04-17-2024 Insj/rplcmt spi npgr dir/induxive coupling INSERTION PERMANENT STIMULATOR SPINAL CORD post-laminectomy syndrome 04/17/2024 2:00 PM EDT [place] [facility] Start: 04-17-2024 Subsequent hospital visit by physician 04/17/2024 2:00 PM EDT Hospital Encounter [facility] [address] [place] [phone] Titus Pritchett MD [address] [place], [place] [phone] [facility] Start: 04-02-2024 End: 04-02-2024 Patient encounter procedure 04/02/2024 11:15 AM EDT Office Visit [facility] [address] [place] [place] [phone] Justin Underwood MD [address], [place], [place] [phone] [facility] Start: 04-01-2024 End: 04-01-2024 Patient encounter procedure 04/01/2024 11:15 AM EDT Procedure visit [facility] - Pre Admit [address] [facility] [place] [phone] [facility] Ad[facility] Start: 03-22-2024 COVID-19 Vaccine ( season) COVID-19 Vaccine ( season) [facility] Start: 03-22-2024 COVID-19 Vaccine ( season) COVID-19 Vaccine ( season) [facility] Start: 03-22-2024 Influenza vaccination Influenza Vacc ine [facility] Start: 03-12-2024 End: 03-12-2024 Patient encounter procedure 03/12/2024 1:30 PM EDT Office Visit [facility] [address] [place] [phone] Guillaume Steve PA [address], [address] [place] [address] [facility] Start: 03-09-2024 End: 03-09-2024 Patient encounter procedure 03/09/2024 3:00 PM EDT Office Visit [facility] [address] [place] [phone] Justin Underwood MD [address], [place] [address] [facility] Start: 02-27-2024 End: 02-27-2024 Patient encounter procedure 02/27/2024 1:30 PM EDT Procedure Visit [facility] [address] [place] [phone] Dionne Barlow DPM [address] [place] [address] [facility] Start: 02-21-2024 End: 02-21-2024 Admission to same day surgery center 02/21/2024 2:45 PM EDT - 02/21/2024 3:26 PM EDT Surgery [facility] Procedures [address] [place] [phone] Titus Pritchett MD [address] [place] [address] INSERTION STIMULATOR SPINAL CORD-TRIAL [21356 (CPT )] [facility] Procedures Comment on above: INSERTION STIMULATOR SPINAL CORD-TRIAL [96272 (CPT )] Start: 02-21-2024 End: 02-21-2024 Prq impltj nstim electrode array epidural INSERTION STIMULATOR SPINAL CORD Lumbar post-laminectomy syndrome 02/21/2024 2:45 PM EDT [facility] Start: 02-21-2024 Subsequent hospital visit by physician 02/21/2024 2:45 PM EDT Hospital Encounter [facility] Procedures [address] [place] [phone] Titus Pritchett MD [address] [place] [address] [facility] Start: 01-09-2024 Depression Screening Depression [facility] Start: 12-25-2023 End: 12-25-2023 Telemedicine consultation with patient 12/25/2023 8:00 AM EDT Telemedicine [facility] [address] [place] [phone] Justin Underwood MD [address], [place] [address] [facility] Start: 10-29-2023 End: 10-29-2023 Patient encounter procedure 10/29/2023 2:30 PM EDT Office Visit [facility] [address] [place] [phone] Guillaume Steve, PA [address], [address] [place] [address] [facility] Start: 10-03-2023 End: 10-03-2023 Patient encounter procedure 10/03/2023 1:15 PM EDT Office Visit [facility] [address] [place] [phone] Guillaume Steve, PA [address], [address] [place] [address] [facility] Start: 10-01-2023 End: 10-01-2023 Clinical Support 10/01/2023 9:00 AM EDT Clinical Support [facility] [address] [place] [phone] [facility] Start: 09-25-2023 End: 09-24-2024 CBC W Auto Differential panel - Blood CBC auto differential Lab Routine Type 2 diabetes mellitus without complication, without long-term current use of insulin ([facility]) Expected: 09/25/2023 (Approximate), Expires: 09/24/2024 [facility] Work Phone: Comment on above: Expected: 09/25/2023 (Approximate), Expires: 09/24/2024 Start: 09-25-2023 End: 09-24-2024 Comprehensive metabolic 2000 panel - Serum or Plasma Comprehensive metabolic panel Lab Routine Type 2 diabetes mellitus without complication, without long-term current use of insulin ([facility]) Expected: 09/25/2023 (Approximate), Expires: 09/24/2024 [facility] Comment on above: Expected: 09/25/2023 (Approximate), Expires: 09/24/2024 Start: 09-25-2023 End: 09-24-2024 Hemoglobin A1c/Hemoglobin.total in Blood Hemoglobin A1c Lab Routine Type 2 diabetes mellitus without complication, without long-term current use of insulin ([facility]) Expected: 09/25/2023 (Approximate), Expires: 09/24/2024 [facility] Comment on above: Expected: 09/25/2023 (Approximate), Expires: 09/24/2024 Start: 09-25-2023 End: 09-24-2024 Lipid 1996 panel - Serum or Plasma Lipid profile Lab Routine Type 2 diabetes mellitus without complication, without long-term current use of insulin ([facility]) Expected: 09/25/2023 (Approximate), Expires: 09/24/2024 [facility] Comment on above: Expected: 09/25/2023 (Approximate), Expires: 09/24/2024 Start: 09-25-2023 End: 09-25-2023 Patient encounter procedure 09/25/2023 11:30 AM EST Office Visit [facility] [address] [place] [address] [place] [phone] Justin Underwood MD [address] [place], [place] [phone] [facility] Start: 09-13-2023 End: 09-13-2023 Admission to same day surgery center 09/13/2023 9:07 AM EST - 09/13/2023 9:14 AM EST Surgery [facility] [address] [place] [phone] Titus Pritchett MD [address] [place], [place] [phone] INJECTION SPINE TRANSFORAMINAL: right L12 [85728 (CPT )] [facility] Comment on above: INJECTION SPINE GALINDO SFORAMINAL: right L12 [16493 (CPT )] Start: 09-13-2023 End: 09-13-2023 Njx anes&/strd w/img tfrml edrl lmbr/sac 1 lvl INJECTION SPINE TRANSFORAMINAL Spinal stenosis of lumbar region with neurogenic claudication 09/13/2023 9:07 AM EST [facility] Start: 09-13-2023 Subsequent hospital visit by physician 09/13/2023 9:07 AM EST Hospital Encounter [facility] [address] [place] [phone] Titus Pritchett MD [address] [place], [place] [phone] [facility] Start: 09-10-2023 End: 09-10-2023 Patient encounter procedure 09/10/2023 3:30 PM EST Office Visit [facility] [address] [place] [phone] Justin Underwood MD [address] [place], [place] [phone] [facility] Start: 09-03-2023 End: 09-03-2023 Patient encounter procedure 09/03/2023 1:45 PM EST Office Visit [facility] [address] [place] [phone] Guillaume Steve PA [address] [facility], [address] [place], [place] [phone] [facility] Start: 08-26-2023 End: 08-26-2023 Patient encounter procedure 08/26/2023 10:45 AM EST Appointment [facility] Imaging [address] [place] [phone] Guillaume Steve, PA [address] [place] [address] [facility] Start: 03-22-2023 COVID-19 Vaccine ( season) COVID-19 Vaccine ( season) [facility] Start: 03-22-2023 Influenza [facility] Start: 08-10-2022 Urine screening for protein Urine Microalbumin [facility] Start: 11-23-1995 Adult BMI Follow Up Plan Adult BMI Follow Up Plan [facility] Start: 11-23-1995 Diabetic foot examination Diabetic Foot Exam [facility] Start: 1975 Glaucoma screening Diabetic Op hthalmology Exam [facility] Start: 1977 Screening for malign ant neoplasm of colon [facility] Start: 1975 Tobacco Counseling Tobacco Counselin g [facility] Insj/rplcmt spi npgr dir/induxive coupling INSERTION PERMANENT STIMULATOR SPINAL CORD Lumbar post-laminectomy syndrome [facility] Prq impltj nstim electrode array epidural INSERTION STIMULATOR SPINAL CORD Lumbar post-laminectomy syndrome [facility] Prq impltj nstim electrode array epidural INSERTION STIMULATOR SPINAL CORD Postlaminectomy syndrome of lumbar region [facility] End: 09-24-2024 Valproic acid level, free Valproic acid level, free Lab Routine Type 2 diabetes mellitus without complication, without long-term current use of insulin (CMS-HCC) Seizure disorder ([facility]) 1 Occurrences starting 09/25/2023 until 09/24/2024 [facility] Comment on above: 1 Occurrences starti ng 09/25/2023 until 09/24/2024 Immunizations Immunization Date Immunization Notes Care Provider Brenden león 05-11-2024 influenza, injectabl e, madin cameron canine kidney, preservative free Justin Underwood MD Work Phone: [facility] 05-11-2024 Immunization, In Clinic,; Translations: [Drug or medicament (substance)] Justin Underwood MD Work Phone: [facility] 04-17-2022 influenza, injectabl e, quadrivalent, preservative free Dionne Rusher DPM Work Phone: [facility] 04-17-2022 influenza virus vaccine, unspecified formulation Ankita Qiu 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 Work Phone: [facility] 05-08-2021 Influenza, High-dose Seasonal, Quadrivalent, Preservative Free Dionne Rusher DPM Work Phone: [facility] 05-17-2020 influenza, injectabl e, quadrivalent, preservative free Dionne Rusher DPM Work Phone: [facility] 05-05-2019 influenza, injectabl e, quadrivalent, preservative free Ankita Qiu 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 Work Phone: [facility] 11-11-2017 hepatitis B vaccine, adult dosage Dionne Rusher DPM Work Phone: [facility] 04-21-2017 hepatitis B vaccine, adult dosage Ankita Iqu [employer] C[employer]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 Work Phone: [facility] 07-02-2016 influenza, high dose seasonal, preservative-free Ankita Qiu [employer] C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 Work Phone: [facility] 05-28-2016 influenza, seasonal, injectable, preservative free Dionne Rusher DPM Work Phone: [facility] 08-09-2015 tetanus and diphther ia toxoids, adsorbed, preservative free, for adult use (2 Lf of tetanus toxoid and 2 Lf of diphtheria toxoid) Ankita Qiu 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 Work Phone: [facility] 06-30-2013 influenza, seasonal, injectable Dionne Rusher DPM Work Phone: [facility] 06-11-2012 influenza, seasonal, injectable Dionne Rusher DPM Work Phone: [facility] 06-27-2011 influenza, seasonal, injectable Dionne Rusher DPM Work Phone: [facility] 05-29-2010 influenza, seasonal, injectable Dionne Rusher DPM Work Phone: [facility] 07-05-2009 novel [id number], preservative-free, injectable Dionne Rusher DPM Work Phone: [facility] 06-25-2009 influenza, seasonal, injectable Dionne Rusher DPM Work Phone: [facility] Payers Date Payer Category Payer Medicaid [id number] 2017 Medicare [id number] 2001 Medicare [id number] 1977 Unknown [id number] 2.16.8 40.1.440930.3.579.2.176 1977 Unknown [id number] 2.16.8 40.1.020683.3.579.2.647 1977 Unknown [id number] 2.16.8 40.1.875915.3.579.2.647 1977 Unknown [id number] 2.16.8 40.1.616096.3.579.2.647 1977 Unknown [id number] 2.16.8 40.1.220130.3.579.2.647 1977 Unknown [id number] 2.16.8 40.1.746647.3.579.2.647 1977 Unknown [id number] 2.16.8 40.1.866758.3.579.2.173 1977 Unknown [id number] 2.16.84 0.1.808915.3.579.2.593 1977 Unknown [id number] 2.16.84 0.1.493078.3.579.2. 1977 Unknown [id number] 2.16.84 0.1.229079.3.579.2. 1977 Unknown [id number] 2.16.84 0.1.085445.3.579.2.1258 1977 Unknown [id number] 2.16.84 0.1.649151.3.579.2.1258 1977 Unknown [id number] 2.16.8 40.1.254996.3.579.2.1285 1977 Unknown [id number] 2.16.8 40.1.862938.3.579.2.1285 1977 Unknown [id number] 2.16.8 40.1.506055.3.579.2.1285 1977 Unknown [id number] 2.16.84 0.1.750895.3.579.2.1285 1977 Unknown [id number] 2.16.8 40.1.448846.3.579.2.1285 1977 Unknown [id number] 2.16.8 40.1.148042.3.579.2.1285 1977 Unknown [id number] 2.16.8 40.1.754844.3.579.2.1285 1977 Unknown [id number] 2.16.8 40.1.181485.3.579.2.1285 1977 Unknown [id number] 2.16.8 40.1.474919.3.579.2.1285 1977 Unknown [id number] 2.16. 840.1.454574.3.579.2.1285 1977 Unknown [id number] 2.16. 840.1.918679.3.579.2.1285 1977 Unknown [id number] 2.16. 840.1.163603.3.579.2.1285 1977 Unknown [id number] 2.16. 840.1.148630.3.579.2.1285 1977 Unknown [id number] 2.16. 840.1.263680.3.579.2.1285 1977 Unknown [id number] 2.16. 840.1.253058.3.579.2.1285 1977 Unknown [id number] 2.16. 840.1.188246.3.579.2.1285 1977 Unknown [id number] 2.16. 840.1.555953.3.579.2.1285 1977 Unknown [id number] 2.16. 840.1.995266.3.579.2.1285 1977 Unknown [id number] 2.16. 840.1.053785.3.579.2.1285 1977 Unknown [id number] 2.16. 840.1.865953.3.579.2.1285 1977 Unknown [id number] 2.16.8 40.1.491106.3.579.2.1285 1977 Unknown [id number] 2.16.8 40.1.373242.3.579.2.1285 1977 Unknown [id number] 2.16.8 40.1.350808.3.579.2.1285 1977 Unknown [id number] 2.16.8 40.1.570799.3.579.2.1285 1977 Unknown [id number] 2.16.8 40.1.003949.3.579.2.1285 1977 Unknown [id number] 2.16.8 40.1.143819.3.579.2.1285 1977 Unknown [id number] 2.16.8 40.1.029649.3.579.2.1285 1977 Unknown [id number] 2.16.8 40.1.917271.3.579.2.1285 1977 Unknown [id number] 2.16.8 40.1.828457.3.579.2.1285 1977 Unknown [id number] 2.16.8 40.1.859068.3.579.2.1285 1977 Unknown [id number] 2.16.8 40.1.119137.3.579.2.1285 1977 Unknown [id number] 2.16.8 40.1.023884.3.579.2.1285 1977 Unknown [id number] 2.16.8 40.1.048200.3.579.2.1285 1977 Unknown [id number] 2.16.8 40.1.147601.3.579.2.1285 1977 Unknown [id number] 2.16.8 40.1.665972.3.579.2.1285 1977 Unknown [id number] 2.16.8 40.1.483055.3.579.2.1285 1977 Unknown [id number] 2.16.8 40.1.905938.3.579.2.1285 1977 Unknown [id number] 2.16.8 40.1.907046.3.579.2.1285 1977 Unknown [id number] 2.16.8 40.1.185012.3.579.2.1285 1977 Unknown [id number] 2.16.8 40.1.982175.3.579.2.[facility] 1957 Medicaid [id number] 1957 Medicare [id number] Social History Date Type Detail Facility Start: 02-17-2023 Tobacco smoking stat [facility] Never smoked tobacco [facility] Start: 08-29-2023 Alcohol intake Lifetime non-d regis (finding) [facility] Start: 08-12-2020 End: 02-17-2023 History of Social function [facility] Start: 08-12-2020 End: 02-17-2023 Tobacco use panel [facility] Start: 1975 Sex Assigned At Not on file [facility] Start: 07-22-2022 End: 07-30-2024 Tobacco smoking status NHIS Smokes tobacco daily [facility] Start: 07-22-2022 History of tobacco use Cigarette Smo ker [facility] Start: 08-29-2023 End: 07-30-2024 Tobacco use and exposure Smokeless tobacco non-user [facility] Start: 07-07-2024 End: 09-02-2024 Alcoholic beverage intake Current non-drinker of alcohol (finding) [facility] How hard is it for y ou to pay for the very basics like food, housing, medical care, and heating Not hard at all [facility] Start: 04-18-2016 Sex Male (finding) [facility] History of tobacco use [facility] Medical Equipment Procedure Code Equipment Code Equipment Origin al Text Equipment Identifier Dates Kit Nrstm 50cm Infinion 1x16 Spltr Tr Ld - [id number] - [id number] Start: 02-21-2024 Kit Nrstm 50cm Infinion 1x16 Spltr Tr Ld - [id number] - [id number] Start: 02-21-2024 Wavewriter Alpha 16 Implantable Pulse Generator Kit [id number], [id number] FDA Start: 04-17-[address] [id number] Start: 04-17-[address] [id number] Start: 04-17-2024 Clik X Clarence [id number] Start: 04-17-2024 [id number], [id number], [id number] Start: 02-25-2023 End: 05-11-2024 Clinical Notes 08-22-2023 to 09-10-2024 Guillaume Steve, PA - 09/10/2024 1:00 PM ESTTelephone Encounter - Ofelia Barrientos RN - 09/09/2024 11:35 AM ESTTelephone Encounter - Ofelia Barrientos RN - 09/09/2024 11:35 AM ESTPatient Instructions Note Date & Type Note Facility 09-10-2024 History of Present illness Narrative [facility] [address] [place] [address] Patient: Laxmi Torres Sex: male : 1975 Age: 48 y.o. PCP: JUSTIN UNDERWOOD MD 09/10/2024 Laxmi Torres is here for a(n) follow up due to pain at SCS site. This pain began a couple of days after 09/02/2024 OV. He also reports throbbing in left knee. The knee pain began the same time the SCS site became painful. Pain to SCS site occurs when patient sits back against chair and pressure is applied to site. Patient feels as if the SCS is sticking out too far. Patient states that his lumbar and leg pain that he experienced prior to SCS placement has resolved and does not want the SCS to be removed. Chief Complaint Patient presents with Back Pain HPI: 09/23/20 Left L5S1 NRI 50% relief 11/03/21 Timoteo SI joint injections with 100% relief for 3 hours then slowly back to baseline next day. 03/03/2021 Bilat L1/2 5/1 Medial Branch Block w/ 90-100% relief for a couple days then 50% relief for 2 weeks. 04/14/21 Timoteo L1/2, 5/1 MBB w/ 100% relief 06/23/21 Lt L1/2, 5/1 RFA w/ 50% relief and 06/05/21 Rt L1/2, 5/1 RFA w/ 50% relief Bilateral SI joint injection on 09/29/2021 with 100% relief for 2 hours. Left SI joint radiofrequency ablation and 12/15/2021 Right SI radiofrequency ablation With 60% relief 09/28/2022 right and 10/12/2022 left L 1/2 L5/S1 Radiofrequency ablations with 50% relief x 2 weeks 12/14/2022 bilateral sacroiliac injections with 50% relief the day of procedure. right L 1/2 nerve root injection on 09/13/2023 with no relief. 02/21/24 SCS trial with 100% relief for duration of trial 04/17/2024 permanent spinal cord stimulator placement with 100% relief that continues Back Pain This is a chronic (2016 (or before per caretaker grounds)) problem. The current episode started more than 1 year ago. The problem occurs rarely. The problem has been rapidly improving since onset. The pain is present in the lumbar spine, sacro-iliac and gluteal. The quality of the pain is described as aching. The pain does not radiate. Pain scale: 8/10 to SCS site if pressure is applied. The patient is experiencing no pain. Exacerbated by: tolerating all activity post SCS. Stiffness is present In the morning, all day and at night (intermittently). Pertinent negatives include no bladder incontinence, bowel incontinence, chest pain, leg pain or weakness. Risk factors include lack of exercise, obesity and sedentary lifestyle (osteoarthritis). He has tried ice, heat, analgesics, home exercises, muscle relaxant, NSAIDs and walking (PT (06/2021-Jul 2022), HEP, ice/heat/rest, Tylenol, Gabapentin, Meloxicam daily; Muscle relaxers/Percocet in past, IcyHot. DANA L1/2 on 09/25/19 w/no relief. Back surg 12/2019 w/ mod relief. ., flexeril, lidocaine, toradol) for the symptoms. The treatment provided mild (Left L5, S1 NRI on 10/28/2020 w/100% relief of back & leg pain. ) relief. The effect of pain on patient's ADLS: Mild Impairment. Past Medical History: Diagnosis Date Abnormal gait 07/02/2011 Acute pancreatitis 08/12/2020 Allergic rhinitis Anxiety Autism Back problem Bipolar I disorder ([facility]) 01/17/2017 Chipped tooth upper molar chipped Chronic pain disorder Chronic sinusitis COVID-19 2019 Depression Developmental delay disorder Deviated nasal septum 07/30/2022 Diabetes mellitus, type 2 ([facility]) Disc displacement, lumbar 08/20/2019 DNS (deviated nasal septum) alcohol syndrome GERD (gastroesophageal reflux disease) Hemorrhoids without complication 08/12/2020 Hip pain, bilateral Hyperlipidemia Hypersomnia Hypertension Hypokalemia Impulse control disorder in adult Injury of back Intellectual functioning disability 07/02/2011 Leukopenia 03/04/2023 Low back pain Lumbar post-laminectomy syndrome 08/06/2011 Mild oppositional defiant disorder with angry or irritable mood Nasal congestion Nasal turbinate hypertrophy Neck pain Vienna's syndrome Obstructive sleep apnea syndrome 07/02/2011 Seizure disorder ([facility]) states in childhood, denies seizures as an adult Sleep apnea Smoker Spinal stenosis of lumbar region 08/2023 Tachycardia 08/12/2020 Past Surgical History: Procedure Laterality Date BACK SURGERY CHOLECYSTECTOMY INJECTION BLOCK EPIDURAL STEROID LUMBAR/SACRAL: left L 5,1 nroot Left 09/23/2020 Performed by Titus Pritchett MD at [facility] INJECTION BLOCK EPIDURAL STEROID LUMBAR/SACRAL: Left L 5/1 Nroot Left 10/28/2020 Performed by Titus Pritchett MD at [facility] INJECTION BLOCK NERVE MEDIAL BRANCH: bilat L 1/2 / Bilateral 04/14/2021 Performed by Titus Pritchett MD at [facility] INJECTION BLOCK NERVE MEDIAL BRANCH: bilat L 1/2 _ / Bilateral 03/03/2021 Performed by Titus Pritchett MD at [facility] INJECTION BLOCK SACROILIAC JOINT Bilateral 12/14/2022 Performed by Titus Pritchett MD at [facility] INJECTION BLOCK SACROILIAC JOINT Bilateral 11/03/2021 Performed by Titus Pritchett MD at [facility] INJECTION BLOCK SACROILIAC JOINT Bilateral 09/29/2021 Performed by Titus Pritchett MD at [facility] INJECTION LUMBAR OR SACRAL EPIDURAL BLOCK WITH STEROIDS: L12 DANA N/A 09/25/2019 Performed by Titus Pritchett MD at [facility] INJECTION LUMBAR OR SACRAL EPIDURAL BLOCK WITH STEROIDS: L12 DANA N/A 08/28/2019 Performed by Titus Pritchett MD at [facility] SPINE TRANSFORAMINAL: right L 1,2 Nroot Right 09/13/2023 Performed by Titus Pritchett MD at [facility] INSERTION PERMANENT STIMULATOR SPINAL CORD N/A 04/17/2024 Performed by Titus Pritchett MD at [facility] INSERTION STIMULATOR SPINAL CORD- TRIAL N/A 02/21/2024 Performed by Titus Pritchett MD at [facility] NECK SURGERY Fusion C4-7 OPEN FUNCTIONAL RHINOPLASTY SEPTOPLASTY NOSE WITH REPAIR OF TURBINATE FRACTURE N/A 03/11/2023 Performed by Marlee Vazquez DO at [facility] RADIOFREQUENCY ABLATION SPINAL: left L 07/23 _ 11/19 Left 10/12/2022 Performed by Titus Pritchett MD at [facility] RADIOFREQUENCY ABLATION SPINAL: left L 07/23 _11/19 Left 06/23/2021 Performed by Titus Pritchett MD at [facility] RADIOFREQUENCY ABLATION SPINAL: left SI Left 12/01/2021 Performed by Titus Pritchett MD at [facility] RADIOFREQUENCY ABLATION SPINAL: right L 07/23 _ 11/19 Right 09/28/2022 Performed by Titus Pritchett MD at [facility] RADIOFREQUENCY ABLATION SPINAL: right L 07/23 _11/19 Right 06/05/2021 Performed by Titus Pritchett MD at [facility] RADIOFREQUENCY ABLATION SPINAL: right SI Right 12/15/2021 Performed by Titus Pritchett MD at [facility] REDUCTION TURBINATE Bilateral 03/11/2023 Performed by Marlee Vazquez DO at [facility] REVISION STIMULATOR SPINAL CORD N/A 08/14/2024 Performed by Titus Pritchett MD at [facility] Allergies Allergen Reactions Penicillins Hives Unknown reaction Sulfa (Sulfonamide Antibiotics) Unknown reraction Family History Problem Relation Age of Onset Sleep apnea Father Anesthesia problems Neg Hx Social History Socioeconomic History Marital status: Single Spouse name: Not on file Number of children: Not on file Years of education: Not on file Highest education level: Not on file Occupational History Not on file Tobacco Use Smoking status: Every Day Current packs/day: 0.50 Average packs/day: 0.3 packs/day for 2.1 years (0.6 ttl pk-yrs) Types: Cigarettes Start date: 2022 Smokeless tobacco: Never Vaping Use Vaping status: Some Days Substances: Nicotine, Flavoring Substance and Sexual Activity Alcohol use: No Drug use: No Sexual activity: Defer Other Topics Concern Caffeine Use Yes Social History Narrative Not on file Social Drivers of Health Financial Resource Strain: Low Risk (05/08/2023) Overall Financial Resource Strain (CARDIA) Difficulty of Paying Living Expenses: Not hard at all Food Insecurity: No Food Insecurity (09/10/2024) Hunger Screening Food Insecurity - Worry: Never True Food Insecurity - Inability: Never True Transportation Needs: No Transportation Needs (05/08/2023) PRAPARE - Transportation Lack of Transportation (Medical): No Lack of Transportation (Non-Medical): No Physical Activity: Not on file Stress: Not on file Social Connections: Not on file Interpersonal Safety: Unknown (10/10/2023) [facility] Humiliation, Afraid, Rape, and Kick questionnaire Fear of Current or Ex-Partner: No Emotionally Abused: Not on file Physically Abused: Not on file Sexually Abused: Not on file Housing Instability: Low Risk (05/08/2023) Housing Instability Housing Instability: No Review of Systems HENT: Negative. Respiratory: Positive for cough. Negative for shortness of breath. Cardiovascular: Negative for chest pain. Gastrointestinal: Negative. Negative for bowel incontinence. Genitourinary: Negative. Negative for bladder incontinence. Musculoskeletal: Positive for back pain. Skin: Negative. Neurological: Negative for weakness. Psychiatric/Behavioral: Negative. Vital Signs: BP (!) 119/98 Pulse 108 Resp 16 SpO2 99% Physical Exam: GENERAL - Healthy patient that appears stated age. HEENT - Normocephalic / Atraumatic, Extraoccular movements intact, trachea midline, thyroid within normal limits. CV - pulse regular, Warm extremities with appropriate color of nailbeds. RESP - No obvious wheezing, No Shortness of Breath, No overexertion response to exam maneuvers. COORDINATION - remains intact. PSYCH - Alert and Oriented x4, Attentive and appropriate, constitutionally normal, displays normal mood and affect per situation, answered questions appropriately during examination, demonstrated appropriate attention during discussion, demonstrated appropriate cognitive reasoning and understanding of the medical condition by asking appropriate questions regarding the diagnosis and risks/benefits/alternatives of treatment modalities. No obvious deficits in memory, reasoning, or intellect. Lumbar: SKIN - No rashes or bruising in the area of the patient s pain. SCS surgical site is well healed without redness, swelling or erythema. LYMPH NODES - demonstrate no obvious enlargement. EXTREMITIES - Lower extremities are warm, with minimal edema and palpable pulses. No significant tenderness to palpation noted in the lumbar spine and paraspinal musculature. Mild pain is elicited with flexion, extension, and lateral rotation of the lumbar spine. Range of motion is not diminished with these motions. Facet palpation is negative for significant pain and facet loading maneuvers elicit only mild pain that is not concordant with the patient s normal pain complaints. STRENGTH - noted to be 5 out of 5 all muscle groups bilateral lower extremities including muscles involving hip flexion and abduction, knee flexion and extension, as well as foot dorsiflexion and plantarflexion. No notable atrophy, fasciculations or spasm. SENSORY - No notable sensory deficits in the bilateral lower extremities to touch or pinprick in all dermatomal distributions. Straight Leg Raise is negative bilaterally. Gait is normal. Assessment/Treatment Plan: Laxmi was seen today for back pain. Diagnoses and all orders for this visit: Lumbar post-laminectomy syndrome Monitor Follow up 6 weeks The medications I have prescribed have been reviewed for medication interactions/contraindications and/or for upcoming procedures: continue current medication regimen without any changes. DISCUSSION: Treatment options discussed with patient and all questions answered to patient's satisfaction. Discussed the rules and regulations surrounding prescription of opioids and compliance at length. Failure to follow the rules and regulation will result in tapering and discontinuation of medications if applicable. Prescribed medication that requires intensive monitoring for toxicity We do not currently prescribe any controlled substance from this practice. Patient reports he is a little uncomfortable with sitting due to SCS battery. He has significant relief of prior symptoms with SCS. At this time it does appear that the patient s pain is under adequate control with conservative care. It is felt that we should continue this approach and continue to monitor these symptoms and address them again in the future if they become more problematic. This approach was discussed with the patient and they are in agreement. The spine model was demonstrated and MRI was reviewed and used to explain the condition. Chronic conditions not treated during this visit that affected my overall medical decision making: Diabetes OARRS: Reviewed. Scribe Statement: Abril Cote CNA, scribed for and in the presence of BRUCE SERVIN who performed the above service. Provider Statement: GUILLAUME Cote PA, personally performed the services described in the documentation, as scribed by Abril Durán CNA in my presence, and it is both accurate and complete. Abril Durán CNA 09/10/24 1405 BRUCE Servin 09/15/24 1146 documented in this encounter [facility] 09-09-2024 Miscellaneous Notes Pt calls stating stimulator is sticking out, bulging causing discomfort. Spoke with myla, she states the last time she saw pt and site, it appeared appropriate; pt is to call [facility] to discuss discomfort.. PVU Received call from alex from [facility], she requests this office address pts complaints by bringing him in to assess. Called pt, he is unclear in his complaints other than saying discomfort at SCS site when he is sitting. Right calf pain 4/10, pain around stimulator 6/10. Pt is scheduled to see Cong on 09/10/2024 at 1 p.m. Pt, pt caregiver ONEYDA Lara rep Alex notified of Laxmi's appt documented in this encounter [facility] 09-09-2024 Telephone encounter Note Pt calls stating stimulator is sticking out, bulging causing discomfort. Spoke with myla, she states the last time she saw pt and site, it appeared appropriate; pt is to call [facility] to discuss discomfort.. PVU [facility] 09-09-2024 Telephone encounter Note Received call from alex from [facility], she requests this office address pts complaints by bringing him in to assess. Called pt, he is unclear in his complaints other than saying discomfort at SCS site when he is sitting. Right calf pain 4/10, pain around stimulator 6/10. Pt is scheduled to see Cong on 09/10/2024 at 1 p.m. Pt, pt caregiver Marco, BSC rep Alex notified of Laxmi's appt [facility] 09-07-2024 History of Present illness Narrative When was the last Refill? Tums- 08/15/23 Flonase-08/16/23 Is this medication Historical? [place] [facility] preferred Pharmacy? [facility] in [place] When was the last OV with provider? 05/11/24 When is the next scheduled visit? 11/09/24 Both requested meds have been pended for approval. Thank you, Bonny Santo, RN [facility] Chronic Care Nurse Hand I Thermal Cutter [phone] documented in this encounter [facility] 09-02-2024 History of Present illness Narrative [facility] [address] [place] [address] Patient: Laxmi Torres Sex: male : 1975 Age: 48 y.o. PCP: JUSTIN UNDERWOOD MD 09/02/2024 Laxmi Torres is here for a(n) post procedure follow up 08/14/24 SCS revision with 100% relief continued. He is able to charge the SCS with no difficulty. Reports increased relief since revision. New complaint of left shoulder pain. Date of onset of pain: chronic , pain has lasted greater than 3 months. Pain scale before treatment: 8/10 Pre-op pain score: 8/10 Post-op pain score: 0/10 Percentage and duration of relief after treatment: see above Pain scale after treatment: 0/10 in back but has 6/10 to left shoulder Chief Complaint Patient presents with Back Pain Shoulder Pain Left HPI: 09/23/20 Left L5S1 NRI 50% relief 11/03/21 [place] SI joint injections with 100% relief for 3 hours then slowly back to baseline next day. 03/03/2021 Bilat L1/2 5/1 Medial Branch Block w/ 90-100% relief for a couple days then 50% relief for 2 weeks. 04/14/21 [place] L1/2, 5/1 MBB w/ 100% relief 06/23/21 Lt L1/2, 5/1 RFA w/ 50% relief and 06/05/21 Rt L1/2, 5/1 RFA w/ 50% relief Bilateral SI joint injection on 09/29/2021 with 100% relief for 2 hours. Left SI joint radiofrequency ablation and 12/15/2021 Right SI radiofrequency ablation With 60% relief 09/28/2022 right and 10/12/2022 left L 1/2 L5/S1 Radiofrequency ablations with 50% relief x 2 weeks 12/14/2022 bilateral sacroiliac injections with 50% relief the day of procedure. right L 1/2 nerve root injection on 09/13/2023 with no relief. 02/21/24 SCS trial with 100% relief for duration of trial 04/17/2024 permanent spinal cord stimulator placement with 100% relief that continues Back Pain This is a chronic (2016 (or before per caretaker grounds)) problem. The current episode started more than 1 year ago. The problem occurs rarely. The problem has been rapidly improving since onset. The pain is present in the lumbar spine, sacro-iliac and gluteal. The quality of the pain is described as aching. The pain does not radiate. The pain is at a severity of 0/10. The patient is experiencing no pain. Exacerbated by: tolerating all activity post SCS. Stiffness is present In the morning, all day and at night (intermittently). Associated symptoms include numbness (left hand). Pertinent negatives include no bladder incontinence, bowel incontinence, chest pain, fever, leg pain, tingling or weakness. Risk factors include lack of exercise, obesity and sedentary lifestyle (osteoarthritis). He has tried ice, heat, analgesics, home exercises, muscle relaxant, NSAIDs and walking (PT (06/2021-Jul 2022), HEP, ice/heat/rest, Tylenol, Gabapentin, Meloxicam daily; Muscle relaxers/Percocet in past, IcyHot. DANA L1/2 on 09/25/19 w/no relief. Back surg 12/2019 w/ mod relief. ., flexeril, lidocaine, toradol) for the symptoms. The treatment provided mild (Left L5, S1 NRI on 10/28/2020 w/100% relief of back & leg pain. ) relief. Shoulder Pain The pain is present in the left arm, left elbow, left wrist, left hand, left fingers and left shoulder. This is a new problem. The current episode started 1 to 4 weeks ago (08/2024). There has been no history of extremity trauma. The problem occurs constantly. The problem has been gradually worsening. The quality of the pain is described as aching and burning. The pain is at a severity of 6/10. The pain is moderate. Associated symptoms include an inability to bear weight (waekness), joint locking (and pops), a limited range of motion, numbness (left hand) and stiffness. Pertinent negatives include no fever or tingling. The symptoms are aggravated by activity and cold. Treatments tried: injection in er, mdp, rest, ic/heat, tylenol. The treatment provided mild relief. The effect of pain on patient's ADLS: Moderate Impairment. Past Medical History: Diagnosis Date Abnormal gait 07/02/2011 Acute pancreatitis 08/12/2020 Allergic rhinitis Anxiety Autism Back problem Bipolar I disorder [place] 01/17/2017 Chipped tooth upper molar chipped Chronic pain disorder Chronic sinusitis COVID-2019 Depression Developmental delay disorder Deviated nasal septum 07/30/2022 Diabetes mellitus, type 2 ([facility] [place] Disc displacement, lumbar 08/20/2019 DNS (deviated nasal septum) alcohol syndrome GERD (gastroesophageal reflux disease) Hemorrhoids without complication 08/12/2020 Hip pain, bilateral Hyperlipidemia Hypersomnia Hypertension Hypokalemia Impulse control disorder in adult Injury of back Intellectual functioning disability 07/02/2011 Leukopenia 03/04/2023 Low back pain Lumbar post-laminectomy syndrome 08/06/2011 Mild oppositional defiant disorder with angry or irritable mood Nasal congestion Nasal turbinate hypertrophy Neck pain Sierra's syndrome Obstructive sleep apnea syndrome 07/02/2011 Seizure disorder ([facility] [place]) states in childhood, denies seizures as an adult Sleep apnea Smoker Spinal stenosis of lumbar region 08/2023 Tachycardia 08/12/2020 Past Surgical History: Procedure Laterality Date BACK SURGERY CHOLECYSTECTOMY INJECTION BLOCK EPIDURAL STEROID LUMBAR/SACRAL: left L 5,1 nroot Left 09/23/2020 Performed by Titus Pritchett MD at [facility] INJECTION BLOCK EPIDURAL STEROID LUMBAR/SACRAL: Left L 5/1 Nroot Left 10/28/2020 Performed by Titus Pritchett MD at [facility] INJECTION BLOCK NERVE MEDIAL BRANCH: bilat L 1/2 5/ Bilateral 04/14/2021 Performed by Titus Pritchett MD at [facility] INJECTION BLOCK NERVE MEDIAL BRANCH: bilat L 2 _ 11/19 Bilateral 03/03/2021 Performed by Titus Pritchett MD at [facility] BLOCK SACROILIAC JOINT Bilateral 12/14/2022 Performed by Titus Pritchett MD at [facility] INJECTION BLOCK SACROILIAC JOINT Bilateral 11/03/2021 Performed by Titsu Pritchett MD at [facility] INJECTION BLOCK SACROILIAC JOINT Bilateral 09/29/2021 Performed by Titus Pritchett MD at [facility] LUMBAR OR SACRAL EPIDURAL BLOCK WITH STEROIDS: L12 DANA N/A 09/25/2019 Performed by Titus Pritchett MD at [facility] LUMBAR OR SACRAL EPIDURAL BLOCK WITH STEROIDS: L12 DANA N/A 08/28/2019 Performed by Titus Pritchett MD at [facility] SPINE TRANSFORAMINAL: right L 1,2 Nroot Right 09/13/2023 Performed by Titus Pritchett MD at [facility] INSERTION PERMANENT STIMULATOR SPINAL CORD N/A 04/17/2024 Performed by Titus Pritchett MD at [facility] INSERTION STIMULATOR SPINAL CORD- TRIAL N/A 02/21/2024 Performed by Titus Pritchett MD at [facility] NECK SURGERY Fusion C4-7 OPEN FUNCTIONAL RHINOPLASTY SEPTOPLASTY NOSE WITH REPAIR OF TURBINATE FRACTURE N/A 03/11/2023 Performed by Marlee Vazquez DO at [facility] RADIOFREQUENCY ABLATION SPINAL: left L /2 _ 11/19 Left 10/12/2022 Performed by Titus Pritchett MD at [facility] RADIOFREQUENCY ABLATION SPINAL: left L /2 _11/19 Left 06/23/2021 Performed by Titus Pritchett MD at [facility] RADIOFREQUENCY ABLATION SPINAL: left SI Left 12/01/2021 Performed by Titus Pritchett MD at [facility] RADIOFREQUENCY ABLATION SPINAL: right L /2 _ 11/19 Right 09/28/2022 Performed by Titus Pritchett MD at [facility] RADIOFREQUENCY ABLATION SPINAL: right L /2 _11/19 Right 06/05/2021 Performed by Titus Pritchett MD at [facility] RADIOFREQUENCY ABLATION SPINAL: right SI Right 12/15/2021 Performed by Titus Pritchett MD at [facility] REDUCTION TURBINATE Bilateral 03/11/2023 Performed by Marlee Vazquez DO at [facility] REVISION STIMULATOR SPINAL CORD N/A 08/14/2024 Performed by Titus Pritchett MD at [facility] Allergies Allergen Reactions Penicillins Hives Unknown reaction Sulfa (Sulfonamide Antibiotics) Unknown reraction Family History Problem Relation Age of Onset Sleep apnea Father Anesthesia problems Neg Hx Social History Socioeconomic History Marital status: Single Spouse name: Not on file Number of children: Not on file Years of education: Not on file Highest education level: Not on file Occupational History Not on file Tobacco Use Smoking status: Every Day Current packs/day: 0.50 Average packs/day: 0.3 packs/day for 2.1 years (0.6 ttl pk-yrs) Types: Cigarettes Start date: 2022 Smokeless tobacco: Never Vaping Use Vaping status: Every Day Substances: Nicotine, Flavoring Substance and Sexual Activity Alcohol use: No Drug use: No Sexual activity: Defer Other Topics Concern Caffeine Use Yes Social History Narrative Not on file Social Drivers of Health Financial Resource Strain: Low Risk (05/08/2023) Overall Financial Resource Strain (CARDIA) Difficulty of Paying Living Expenses: Not hard at all Food Insecurity: No Food Insecurity (09/02/2024) Hunger Screening Food Insecurity - Worry: Never True Food Insecurity - Inability: Never True Transportation Needs: No Transportation Needs (05/08/2023) PRAPARE - Transportation Lack of Transportation (Medical): No Lack of Transportation (Non-Medical): No Physical Activity: Not on file Stress: Not on file Social Connections: Not on file Interpersonal Safety: Unknown (10/10/2023) [facility] Humiliation, Afraid, Rape, and Kick questionnaire Fear of Current or Ex-Partner: No Emotionally Abused: Not on file Physically Abused: Not on file Sexually Abused: Not on file Housing Instability: Low Risk (05/08/2023) Housing Instability Housing Instability: No Review of Systems Constitutional: Negative. Negative for chills, fatigue and fever. HENT: Positive for sore throat (this am onst). Respiratory: Negative. Negative for cough and shortness of breath. Cardiovascular: Negative. Negative for chest pain. Gastrointestinal: Negative. Negative for bowel incontinence, constipation, diarrhea and nausea. Genitourinary: Negative. Negative for bladder incontinence. Musculoskeletal: Positive for arthralgias (left shld 08/2023), back pain, gait problem (slightly off gait, denies falls) and stiffness. Skin: Negative. Neurological: Positive for numbness (left hand). Negative for tingling and weakness. Hematological: Negative. Does not bruise/bleed easily. Psychiatric/Behavioral: Negative. Negative for self-injury and suicidal ideas. Has an speech therapy assistant for adls r/t cognitive deficit Vital Signs: BP 121/80 Pulse 85 Resp 18 Ht 182.9 cm (6') Wt 104.8 kg (231 lb) SpO2 100% BMI 31.33 kg/m Physical Exam: GENERAL - Healthy patient that appears stated age. HEENT - Normocephalic / Atraumatic, Extraoccular movements intact, trachea midline, thyroid within normal limits. CV - pulse regular, Warm extremities with appropriate color of nailbeds. RESP - No obvious wheezing, No Shortness of Breath, No overexertion response to exam maneuvers. COORDINATION - remains intact. PSYCH - Alert and Oriented x4, Attentive and appropriate, constitutionally normal, displays normal mood and affect per situation, answered questions appropriately during examination, demonstrated appropriate attention during discussion, demonstrated appropriate cognitive reasoning and understanding of the medical condition by asking appropriate questions regarding the diagnosis and risks/benefits/alternatives of treatment modalities. No obvious deficits in memory, reasoning, or intellect. Tenderness to palpation noted over the Left Shoulder Joint. Pain is noted with palpation of the acromion and clavical as well as the acromioclavicular junction. No significant pain at the sternoclavicular junction. Some pain is noted at the bicipital groove and the subacromial bursa. Pain is elicited with flexion, abduction, internal rotation, and external rotation of the shoulder with active and passive motion which is consistent with some of the patient s normal pain. Some grinding is noted with these motions. No obvious ligamental laxity is noted. Empty Can Test is negative. Neers Sign is negative. Lumbar: SKIN - No rashes or bruising in the area of the patient s pain. LYMPH NODES - demonstrate no obvious enlargement. EXTREMITIES - Lower extremities are warm, with minimal edema and palpable pulses. Tenderness to palpation noted in the lumbar spine and paraspinal musculature. Pain is elicited with flexion, extension, and lateral rotation of the lumbar spine. Range of motion is diminished with these motions due to pain. Facet palpation is noted to be painful and facet loading maneuvers elicit pain that is concordant with the patient s normal pain complaints. Some muscle spasm is noted in the overlying musculature. STRENGTH - noted to be 5 out of 5 all muscle groups bilateral lower extremities including muscles involving hip flexion and abduction, knee flexion and extension, as well as foot dorsiflexion and plantarflexion. No notable atrophy, fasciculations or spasm. SENSORY - No notable sensory deficits in the bilateral lower extremities to touch or pinprick in all dermatomal distributions. Straight Leg Raise is negative bilaterally. Gait is normal. Assessment/Treatment Plan: Laxmi was seen today for back pain and shoulder pain. Diagnoses and all orders for this visit: Left shoulder pain, unspecified chronicity - Ambulatory referral to Physical Therapy; Future Physical/Aquatic Therapy - It is felt that the patient will benefit from a course of physical therapy focusing on the above mentioned diagnosis. We will recommend that the physical therapist fully evaluate and treat at their discretion considering the modalities that are most useful for the condition being treated. This may include modalities of comfort including moist heat, ultrasound, and TENS therapy. It may also utilize manual therapy and myofascial release for the myofascial component of the patient s pain. It will likely advance to modalities aimed at stabilizing and strengthing the target area while improving range of motion as well. We are also requesting that the physical therapist send notes that will keep our clinic updated to the patient s progress. Follow up 4-6 weeks The medications prescribed have been reviewed for medication interactions/contraindications and/or for upcoming procedures: continue current medication regimen without any changes. DISCUSSION: Treatment options discussed with patient and all questions answered to patient's satisfaction. Discussed the rules and regulations surrounding prescription of opioids and compliance at length. Failure to follow the rules and regulation will result in tapering and discontinuation of medications if applicable. Prescribed medication that requires intensive monitoring for toxicity We do not currently prescribe any controlled substance from this practice. At this time it does appear that the patient s low back pain is under adequate control with conservative care. It is felt that we should continue this approach and continue to monitor these symptoms and address them again in the future if they become more problematic. This approach was discussed with the patient and they are in agreement. The spine model was demonstrated and Xray and MRI was reviewed and used to explain the condition. Chronic conditions not treated during this visit that affected my overall medical decision making: Obesity and Diabetes OARRS: Reviewed. Scribe Statement: Abril Cote CNA, scribed for and in the presence of MYLA RM PA-C who performed the above service. Provider Statement: MYLA Cote PA-C, personally performed the services described in the documentation, as scribed by Abril Durán CNA in my presence, and it is both accurate and complete. Abril Durán CNA 09/02/24 [id number] Abril Durán CNA 09/02/24 [id number] Myla Rm PA-C 09/08/24 [id number] documented in this encounter [facility] 07-30-2024 Nurse Note Caregiver Mary accompanied pt to PAT appt. [facility] 07-30-2024 Miscellaneous Notes Caregiver Mary accompanied pt to PAT appt. documented in this encounter [facility] 07-30-2024 Instructions Shellie Pulido RN - 07/30/2024 12:45 PM EST Preoperative Education Checklist- General Surgery date: 08/14/24 Surgery time: 2p Arrival time: 12p 1. Bring a photo ID and your insurance card with you the day of surgery. You will check in at the main lobby of the [facility]- registration desk is straight ahead as soon as you walk in. Tell them you are here for surgery. 2. If you have a Living Will/Durable Power of Geophysical E Logger for Health Care that is not on file here, please bring a copy the day of surgery. 3. Please shower/bathe the night before surgery with the provided soap or wipes. Do not shower the morning of surgery- you will do use wipes when you arrive here at the hospital before getting into your surgical gown. Do not shave the area of your procedure for 2 days prior to your surgery. 4. NO powder, lotion, perfume/cologne, aftershave, make-up, deodorant, or hair products after you have bathed. 5. NO nail cambodian/acrylic on at least one finger. If you are having a hand, wrist or foot surgery then all nail cambodian and artificial/acrylic nails must be removed from that hand or foot. 6. Avoid ALL Aspirin and non-steroidal anti-inflammatory drugs and certain vitamins (Ibuprofen, Advil, Aleve, Excedrin, Meloxicam, Celebrex, fish/krill oil, etc.) for 7 days prior to surgery as instructed by your surgeon and/or your prescribing doctor. Tylenol IS ALLOWED. If you are on Ticlid, Xarelto, Eliquis, Pradaxa, Plavix or Coumadin, please check with your prescribing doctor for instructions for when to stop them. 7. If you use an inhaler, continue to use it routinely. 8. Nothing to eat or drink (not even water, gum, mints, or hard candy!) AFTER midnight prior to your surgery. 9. Take only medications that you are instructed to on the morning of surgery with a TINY SIP OF WATER. 10. Choose a responsible adult that will be able to drive you home when you are discharged from your hospital stay for your surgery and can stay with you in your home for 24 hours after your procedure. You must NOT drive any vehicle or operate any machinery for 24 hours after surgery. 11. When you dress for your appointment, please wear loose fitting clothing that is appropriate to accommodate your surgical area procedure. BRING WITH YOU ANY DEVICES YOU MAY NEED: DENTON hose, ice machine, sling/swath, brace or special shoe, oversized zip-up or button up shirt, CPAP machine if staying overnight. 12. Do NOT wear jewelry, watches, or any piercings or metal for surgery- leave these valuables and money at home. 13. Do NOT wear contact lenses for surgery- glasses are okay if needed. 14. The anesthesiologist will talk with you the day of surgery and will ask you to sign a Consent Form. 15. Refrain from smoking or any type of tobacco use for at least 8 hours and marijuana for 24 hours prior to arrival for your surgery. 16. If a GREEN BLOOD band is given to you, please bring it with you for the day of surgery. 17. Notify your surgeon if you develop any illness before your surgery. 18. If you are staying overnight, please DO NOT BRING your home medications with you. 19. If you have any questions prior to surgery, please call the Preadmission Testing office at [phone], Mon.-Fri. 7 a.m.-3 p.m. Leave a voicemail if needed. Pre-Surgery Instructions: Medication Instructions paliperidone (INVEGA) 3 mg 24 hr tablet Stop taking 0 days prior to procedure acetaminophen (TYLENOL EXTRA STRENGTH) 500 mg tablet Stop taking 0 days prior to procedure albuterol (PROVENTIL HFA;VENTOLIN HFA) 90 mcg/actuation inhaler Take morning of procedure if needed aspirin 81 mg Check with prescribing doctor for instructions BD AUTOSHIELD DUO PEN NEEDLE 30 gauge x 3/16 needle Stop taking 0 days prior to procedure benztropine (COGENTIN) 1 mg tablet Take morning of procedure bismuth subsalicylate (PEPTO BISMOL) 262 mg/15 mL suspension Stop taking 0 days prior to procedure calcium carbonate (TUMS) 200 mg elemental (500 mg) chewable tablet Stop taking 0 days prior to procedure cetirizine (ZyrTEC) 10 mg tablet Stop taking 0 days prior to procedure diphenhydrAMINE (BENADRYL) 25 mg capsule Stop taking 0 days prior to procedure divalproex (DEPAKOTE) 500 mg EC tablet Take morning of procedure docusate sodium (COLACE) 100 mg capsule Stop taking 0 days prior to procedure fenofibrate (LOFIBRA) 54 mg tablet Stop taking 0 days prior to procedure fluticasone propionate (FLONASE) 50 mcg/actuation nasal spray Stop taking 0 days prior to procedure gabapentin (NEURONTIN) 600 mg tablet Stop taking 0 days prior to procedure gabapentin (NEURONTIN) 600 mg tablet Stop taking 0 days prior to procedure ketoconazole (NIZORAL) 2 % shampoo Stop taking 0 days prior to procedure liraglutide (VICTOZA 3-NITESH) 0.6 mg/0.1 mL (18 mg/3 mL) pen injector Stop taking 0 days prior to procedure meclizine (ANTIVERT) 25 mg tablet Stop taking 0 days prior to procedure melatonin 1 mg tablet,chewable Stop taking 0 days prior to procedure metFORMIN XR (GLUCOPHAGE XR) 500 mg 24 hr tablet Stop taking 0 days prior to procedure methocarbamoL (ROBAXIN) 500 mg tablet Stop taking 0 days prior to procedure metoprolol succinate XL (TOPROL XL) 50 mg 24 hr tablet Take morning of procedure montelukast (SINGULAIR) 10 mg tablet Take morning of procedure if needed naproxen (NAPROSYN) 500 mg tablet Stop taking 1 week prior to procedure omeprazole (PriLOSEC) 20 mg capsule Take morning of procedure ondansetron ODT (ZOFRAN ODT) 4 mg disintegrating tablet Stop taking 0 days prior to procedure pen needle, diabetic (COMFORT EZ PEN NEEDLES) 32 gauge x 1/4 needle Stop taking 0 days prior to procedure phenylephrine HCl-cocoa butter (PREPARATION H,PE,CB,) 0.25-88.44 % suppository Stop taking 0 days prior to procedure QUEtiapine (SEROquel) 300 mg tablet Stop taking 0 days prior to procedure QUEtiapine (SEROquel) 50 mg tablet Stop taking 0 days prior to procedure sertraline (ZOLOFT) 100 mg tablet Stop taking 0 days prior to procedure simvastatin (ZOCOR) 20 mg tablet Stop taking 0 days prior to procedure traZODone (DESYREL) 50 mg tablet Stop taking 0 days prior to procedure How to Avoid an Infection after Your Surgery Your doctor will give you specific instructions, but remember: -ALWAYS wash hands before caring for your incision. -No picking, scratching, or rubbing your incision. -No creams, lotion, powder, rubbing alcohol or hydrogen peroxide on the incision (can harm the tissue and slow healing). -Your doctor will give you specific instructions for what type of dressing you will need and how often it will need changed for infection purposes. -No tight clothing on incision. -Do not allow anyone to touch your incision unless they are cleaning, checking, or redressing it (be sure they wash their hands first). -No contact of your incision with pets; avoid sleeping with pets. -Take full course of antibiotic if prescribed for you after surgery- do not stop unless directed to by your physician. You may also be given an antibiotic prior to your surgery to help prevent surgical site infections. -Eat a healthy and varied diet including proteins, fruits, and vegetables to help promote wound healing and keep blood sugars under control if you are diabetic. -Smoking slows the healing process by decreasing the amount of oxygen in your blood that is needed for tissue healing. Try to avoid or stop smoking if possible. LOOK at your incision each morning and each night to check the progress of healing. Some soreness, numbness, itching and/or mild bruising around the incision is normal. Call your doctor if you notice any of the following: -Increased redness or hardening around the incision area. -Increased pain at the incision site. -Incision feels hot to the touch. -Swelling or pulling apart of the incision edges. -Yellow or green drainage or foul odor coming from the incision. -Bleeding from the incision (apply pressure as needed). -Fever higher than 101 degrees Fahrenheit for more than 4 hours. SHOWERING: Your doctor will give you specific instructions, but remember: -Be careful getting into and out of the shower. -Showers should be quick (5 minutes or less). -Use a clean washcloth to gently wash your incision with soap and water and pat the area dry with a clean towel. -No re-using wash cloths or towels; get a fresh one to clean your incision. -Do not soak in the bathtub, go swimming or use a hot tub (Jacuzzi), or perform activities where your incision is submerged in water or exposed to any fluids or substances until instructed by your doctor. -If your have the sticky strips (steri-strips) over the incision, it is OK to shower with them. Do not remove them. Let them fall off on their own. If you have a question, call your doctor s office. Go to the follow-up appointment with your doctor. documented in this encounter [facility] 07-28-2024 History of Present illness Narrative When was the last Refill? 06/23/24 Is this medication Historical? [place] of preferred Pharmacy? [facility] in [place] When was the last OV with provider? 05/11/24 When is the next scheduled visit? 11/09/24 Pended Gabapentin 600mg 1 tab PO BID to be sent to [place]. Quantity 60 with 2 refills pended. Thank you, Bonny Santo RN [facility] Medicine Chronic Care Nurse Hand I Thermal Cutter [phone] documented in this encounter [facility] 07-24-2024 Miscellaneous Notes Patient is scheduled for the following: PAT: 07/30/24 at 1245 pm SCS Battery Revision: 08/14/24 at 2 pm (caregiver aware patient to arrive at 12 pm) Follow up appt: 09/02/24 at 1245 pm Marco, caregiver aware of all appointments and that an oral ATB will be sent to the pharmacy on 08/07/24 to begin in the evening (Pharmacy is [facility]) Email sent to [employer]. [employer] confirmed that they will be here. Oral ATB per Dr. Pritchett's verbal order prepared, ready to sign. Levaquin 500 mg BID x 5 days, #10 documented in this encounter [facility] 07-24-2024 Telephone encounter Note Patient is scheduled for the following: PAT: 07/30/24 at 1245 pm SCS Battery Revision: 08/14/24 at 2 pm (caregiver aware patient to arrive at 12 pm) Follow up appt: 09/02/24 at 1245 pm Marco, caregiver aware of all appointments and that an oral ATB will be sent to the pharmacy on 08/07/24 to begin in the evening (Pharmacy is [facility]) Email sent to [employer]. [facility] 07-24-2024 Telephone encounter Note [employer] confirmed that they will be here. [facility] 07-24-2024 Telephone encounter Note Oral ATB per Dr. Pritchett's verbal order prepared, ready to sign. Levaquin 500 mg BID x 5 days, #10 [facility] 06-29-2024 History of Present illness Narrative I received a voicemail from Marco Gmoez, patient's caregiver, and was told that patient is out of his Victoza and the pharmacy is requesting a new prescription to be sent over. Pended order to be sent to [facility] in [place]. Thanks, Bonny Santo RN [facility] Family Medicine Chronic Care Nurse Hand I Thermal Cutter [phone] documented in this encounter [facility] 06-23-2024 Miscellaneous Notes Caregiver called on behalf of Laxmi stating that he is need of a new Rx for gabapentin due to him being out of refills. Pended in chart. Please advise? documented in this encounter [facility] 06-23-2024 Telephone encounter Note Caregiver called on behalf of Laxmi stating that he is need of a new Rx for gabapentin due to him being out of refills. Pended in chart. Please advise? [facility] 06-09-2024 History of Present illness Narrative [facility] [address] [place] [address] Patient: Laxmi Torres Sex: male : 1975 Age: 48 y.o. PCP: JUSTIN UNDERWOOD MD 06/09/2024 Laxmi Torres is here for a(n) follow up to address SCS battery placement. Patient feels device has migrated and turned. [employer] rep here to assess device. She feels device battery has turned in the pocket but was able to charge device. Device working and charging appropriately during the time of today's evaluation. Date of onset of pain: 2015 , pain has lasted greater than 3 months. Chief Complaint Patient presents with Back Pain HPI: 09/23/20 Left L5S1 NRI 50% relief 11/03/21 Timoteo SI joint injections with 100% relief for 3 hours then slowly back to baseline next day. 03/03/2021 Bilat L1/2 5/1 Medial Branch Block w/ 90-100% relief for a couple days then 50% relief for 2 weeks. 04/14/21 Timoteo L1/2, 5/1 MBB w/ 100% relief 06/23/21 Lt L1/2, 5/1 RFA w/ 50% relief and 06/05/21 Rt L1/2, 5/1 RFA w/ 50% relief Bilateral SI joint injection on 09/29/2021 with 100% relief for 2 hours. Left SI joint radiofrequency ablation and 12/15/2021 Right SI radiofrequency ablation With 60% relief 09/28/2022 right and 10/12/2022 left L 1/2 L5/S1 Radiofrequency ablations with 50% relief x 2 weeks 12/14/2022 bilateral sacroiliac injections with 50% relief the day of procedure. right L 1/2 nerve root injection on 09/13/2023 with no relief. 02/21/24 SCS trial with 100% relief for duration of trial 04/17/2024 permanent spinal cord stimulator placement with 100% relief that continues Back Pain This is a chronic (2016 (or before per caretaker grounds)) problem. The current episode started more than 1 year ago. The problem occurs constantly (since battery and since SCS moved ). The problem has been gradually worsening (since battery and since SCS moved ) since onset. The pain is present in the sacro-iliac, lumbar spine and gluteal. The quality of the pain is described as aching and cramping. The pain does not radiate. The pain is at a severity of 8/10 (since battery and since SCS moved ). The pain is moderate. The pain is The same all the time. Exacerbated by: tolerating all activity post SCS. Stiffness is present In the morning, all day and at night (intermittently). Pertinent negatives include no bladder incontinence, bowel incontinence, chest pain, fever, leg pain, numbness, tingling or weakness. Risk factors include lack of exercise, obesity and sedentary lifestyle (osteoarthritis). He has tried ice, heat, analgesics, home exercises, muscle relaxant, NSAIDs and walking (PT (06/2021-Jul 2022), HEP, ice/heat/rest, Tylenol, Gabapentin, Meloxicam daily; Muscle relaxers/Percocet in past, IcyHot. DANA L1/2 on 09/25/19 w/no relief. Back surg 12/2019 w/ mod relief. ., flexeril, lidocaine, toradol) for the symptoms. The treatment provided mild (Left L5, S1 NRI on 10/28/2020 w/100% relief of back & leg pain. ) relief. The effect of pain on patient's ADLS: Moderate Impairment. Past Medical History: Diagnosis Date Abnormal gait 07/02/2011 Acute pancreatitis 08/12/2020 Allergic rhinitis Anxiety Autism Back problem Bipolar I disorder ([facility]) 01/17/2017 Chipped tooth upper molar chipped Chronic pain disorder Chronic sinusitis COVID-19 2019 Depression Developmental delay disorder Deviated nasal septum 07/30/2022 Diabetes mellitus, type 2 ([facility]) Disc displacement, lumbar 08/20/2019 DNS (deviated nasal septum) alcohol syndrome GERD (gastroesophageal reflux disease) Hemorrhoids without complication 08/12/2020 Hip pain, bilateral Hyperlipidemia Hypersomnia Hypertension Hypokalemia Impulse control disorder in adult Injury of back Intellectual functioning disability 07/02/2011 Leukopenia 03/04/2023 Low back pain Lumbar post-laminectomy syndrome 08/06/2011 Mild oppositional defiant disorder with angry or irritable mood Nasal congestion Nasal turbinate hypertrophy Neck pain Sierra's syndrome Obstructive sleep apnea syndrome 07/02/2011 Seizure disorder (CMS-HCC) states in childhood, denies seizures as an adult Sleep apnea Smoker Spinal stenosis of lumbar region 08/2023 Tachycardia 08/12/2020 Past Surgical History: Procedure Laterality Date BACK SURGERY CHOLECYSTECTOMY INJECTION BLOCK EPIDURAL STEROID LUMBAR/SACRAL: left L 5,1 nroot Left 09/23/2020 Performed by Titus Pritchett MD at [facility] INJECTION BLOCK EPIDURAL STEROID LUMBAR/SACRAL: Left L 5/1 Nroot Left 10/28/2020 Performed by Titus Pritchett MD at [facility] INJECTION BLOCK NERVE MEDIAL BRANCH: bilat L 1/2 / Bilateral 04/14/2021 Performed by Titus Pritchett MD at [facility] INJECTION BLOCK NERVE MEDIAL BRANCH: bilat L 1/2 _ 11/19 Bilateral 03/03/2021 Performed by Titus Pritchett MD at [facility] INJECTION BLOCK SACROILIAC JOINT Bilateral 12/14/2022 Performed by Titus Pritchett MD at [facility] INJECTION BLOCK SACROILIAC JOINT Bilateral 11/03/2021 Performed by Titus Pritchett MD at [facility] INJECTION BLOCK SACROILIAC JOINT Bilateral 09/29/2021 Performed by Titus Pritchett MD at [facility] INJECTION LUMBAR OR SACRAL EPIDURAL BLOCK WITH STEROIDS: L12 DANA N/A 09/25/2019 Performed by Titus Pritchett MD at [facility] INJECTION LUMBAR OR SACRAL EPIDURAL BLOCK WITH STEROIDS: L12 DANA N/A 08/28/2019 Performed by Titus Pritchett MD at [facility] SPINE TRANSFORAMINAL: right L 1,2 Nroot Right 09/13/2023 Performed by Titus Pritchett MD at [facility] INSERTION PERMANENT STIMULATOR SPINAL CORD N/A 04/17/2024 Performed by Titus Pritchett MD at [facility] INSERTION STIMULATOR SPINAL CORD- TRIAL N/A 02/21/2024 Performed by Titus Pritchett MD at [facility] NECK SURGERY Fusion C4-7 OPEN FUNCTIONAL RHINOPLASTY SEPTOPLASTY NOSE WITH REPAIR OF TURBINATE FRACTURE N/A 03/11/2023 Performed by Marlee Vazquez DO at [facility] RADIOFREQUENCY ABLATION SPINAL: left L 1/2 _ 11/19 Left 10/12/2022 Performed by Titus Pritchett MD at [facility] RADIOFREQUENCY ABLATION SPINAL: left L 07/23 _11/19 Left 06/23/2021 Performed by Titus Pritchett MD at [facility] RADIOFREQUENCY ABLATION SPINAL: left SI Left 12/01/2021 Performed by Titus Pritchett MD at [facility] RADIOFREQUENCY ABLATION SPINAL: right L 07/23 _ 11/19 Right 09/28/2022 Performed by Titus Pritchett MD at [facility] RADIOFREQUENCY ABLATION SPINAL: right L 07/23 _11/19 Right 06/05/2021 Performed by Titus Pritchett MD at [facility] RADIOFREQUENCY ABLATION SPINAL: right SI Right 12/15/2021 Performed by Titus Pritchett MD at [facility] REDUCTION TURBINATE Bilateral 03/11/2023 Performed by Marlee Vazquez DO at [facility] Allergies Allergen Reactions Penicillins Hives Unknown reaction Sulfa (Sulfonamide Antibiotics) Unknown reraction Family History Problem Relation Age of Onset Sleep apnea Father Anesthesia problems Neg Hx Social History Socioeconomic History Marital status: Single Spouse name: Not on file Number of children: Not on file Years of education: Not on file Highest education level: Not on file Occupational History Not on file Tobacco Use Smoking status: Every Day Current packs/day: 0.25 Average packs/day: 0.3 packs/day for 1.9 years (0.5 ttl pk-yrs) Types: Vaping/E-cigarettes , Cigarettes Start date: 2022 Smokeless tobacco: Never Vaping Use Vaping status: Every Day Substances: Nicotine, Flavoring Substance and Sexual Activity Alcohol use: No Drug use: No Sexual activity: Defer Other Topics Concern Caffeine Use Yes Social History Narrative Not on file Social Drivers of Health Financial Resource Strain: Low Risk (05/08/2023) Overall Financial Resource Strain (CARDIA) Difficulty of Paying Living Expenses: Not hard at all Food Insecurity: No Food Insecurity (06/09/2024) Hunger Screening Food Insecurity - Worry: Never True Food Insecurity - Inability: Never True Transportation Needs: No Transportation Needs (05/08/2023) PRAPARE - Transportation Lack of Transportation (Medical): No Lack of Transportation (Non-Medical): No Physical Activity: Not on file Stress: Not on file Social Connections: Not on file Interpersonal Safety: Unknown (10/10/2023) Received from [facility] [employer] Humiliation, Afraid, Rape, and Kick questionnaire Fear of Current or Ex-Partner: No Emotionally Abused: Not on file Physically Abused: Not on file Sexually Abused: Not on file Housing Instability: Low Risk (05/08/2023) Housing Instability Housing Instability: No Review of Systems Constitutional: Negative. Negative for chills, fatigue and fever. HENT: Negative. Eyes: Negative. Respiratory: Negative. Negative for cough and shortness of breath. Cardiovascular: Negative. Negative for chest pain. Gastrointestinal: Negative. Negative for bowel incontinence. Endocrine: Negative. Genitourinary: Negative. Negative for bladder incontinence. Musculoskeletal: Positive for back pain. Skin: Negative. Allergic/Immunologic: Negative. Neurological: Negative. Negative for tingling, weakness and numbness. Hematological: Negative. Psychiatric/Behavioral: Negative. Vital Signs: BP (!) 129/98 (BP Site: Left Arm, BP Postition: Sitting) Pulse 100 Resp 20 Physical Exam: GENERAL - Healthy patient that appears stated age. HEENT - Normocephalic / Atraumatic, Extraoccular movements intact, trachea midline, thyroid within normal limits. CV - pulse regular, Warm extremities with appropriate color of nailbeds. RESP - No obvious wheezing, No Shortness of Breath, No overexertion response to exam maneuvers. COORDINATION - remains intact. PSYCH - Alert and Oriented x4, Attentive and appropriate, constitutionally normal, displays normal mood and affect per situation, answered questions appropriately during examination, demonstrated appropriate attention during discussion, demonstrated appropriate cognitive reasoning and understanding of the medical condition by asking appropriate questions regarding the diagnosis and risks/benefits/alternatives of treatment modalities. No obvious deficits in memory, reasoning, or intellect. Lumbar: SKIN - No rashes or bruising in the area of the patient s pain. LYMPH NODES - demonstrate no obvious enlargement. EXTREMITIES - Lower extremities are warm, with minimal edema and palpable pulses. Tenderness to palpation noted in the lumbar spine and paraspinal musculature. Pain is elicited with flexion, extension, and lateral rotation of the lumbar spine. Range of motion is diminished with these motions due to pain. Facet palpation is noted to be somewhat tender and facet loading maneuvers are mildly positive, but not concordant with the patient s normal pain complaints. STRENGTH - noted to be 5 out of 5 all muscle groups bilateral lower extremities including muscles involving hip flexion and abduction, knee flexion and extension, as well as foot dorsiflexion and plantarflexion. No notable atrophy, fasciculations or spasm. SENSORY - No notable sensory deficits in the bilateral lower extremities to touch or pinprick in all dermatomal distributions. Straight Leg Raise is negative. Gait is normal. Assessment/Treatment Plan: Laxmi was seen today for back pain. Diagnoses and all orders for this visit: Lumbar post-laminectomy syndrome Monitor Follow up 1 month, sooner if needed. Patient to call office if unable to charge device despite assistance and recommendations from [employer] today. The medications prescribed have been reviewed for medication interactions/contraindications and/or for upcoming procedures: continue current medication regimen without any changes. DISCUSSION: Treatment options discussed with patient and all questions answered to patient's satisfaction. Prescribed medication that requires intensive monitoring for toxicity We do not currently prescribe any controlled substance from this practice. At this time it does appear that the patient s pain is under adequate control with conservative care. It is felt that we should continue this approach and continue to monitor these symptoms and address them again in the future if they become more problematic. This approach was discussed with the patient and they are in agreement. The spine model was demonstrated and MRI was reviewed and used to explain the condition. Chronic conditions not treated during this visit that affected my overall medical decision making: Sleep apnea OARRS: Reviewed. Scribe Statement: Scribed for and in the presence of CUBA HOOKER by Abril Durán CNA. Provider Statement: I, CUBA HOOKER, personally performed the services described in the documentation, as scribed by Abirl Durán CNA in my presence, and it is both accurate and complete. 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 Marco is wondering if an appointment is needing to be made. Please advise? I can sign off with out an appointment. Paperwork can go in my inbox. Please call and notify patient. Thanks, JUSTIN UNDERWOOD MD 06/22/24 Paper is going to be dropped of to office. 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 Marco is wondering if an appointment is needing to be made. Please advise? [email or web address] Telephone encounter Note I can sign off with out an appointment. Paperwork can go in my inbox. Please call and notify patient. Thanks, JUSTIN UNDERWOOD MD 06/22/24 [email or web address] Telephone encounter Note Paper is going to be dropped of to office. [email or web address] Miscellaneous Notes Call received from Alex Porter ([employer] Rep). She reports she has received numerous calls from patient asking her to move up his follow up appointment. Alex is informed that patient is scheduled for the next available appointment (06/09/2024 at 2:45 PM). Alex states she will call patient to inform him. Patient called on the other line and spoke with Radha during the time that Alex was on the line. He stated that his stimulator has moved and he needs an emergency appointment. If he feels as he is experiencing a true emergency, then a visit to the emergency department would be more appropriate. Otherwise, can f/u next week as scheduled Spoke with caregiver says they are having difficulty charging SCS. They feel like the SCS has moved. I offered 0930 or 1015 appt to pt caregiver, they would like an appt where Alex is able to be present. Called RUTHY johnson on with this information. Await call back Patient was seen in the office today. documented [facility] this encounter [email or web address]-02-[facility]24 Telephone encounter Note Call received from Alex Porter ([employer]). She reports she has received numerous calls from patient asking her to move up his follow up appointment. Alex is informed that patient is scheduled for the next available appointment (06/09/2024 at 2:45 PM). Alex states she will call patient to inform him. Patient called on the other line and spoke with Radha during the time that Alex was on the line. He stated that his stimulator has moved and he needs an emergency appointment. [email or web address] Telephone encounter Note If he feels as he is experiencing a true emergency, then a visit to the emergency department would be more appropriate. Otherwise, can f/u next week as scheduled [facility] 06-02-2024 Telephone encounter Note Spoke with caregiver says they are having difficulty charging SCS. They feel like the SCS has moved. I offered 0930 or 1015 appt to pt caregiver, they would like an appt where Alex is able to be present. Called RUTHY johnson on with this information. Await call back [facility] 06-02-2024 Telephone encounter Note Patient was seen in the office today. [facility] 05-11-2024 History of Present illness Narrative Images from the original note were not included. [address] [place] [id number] Patient: Laxmi Torres Date of : 1975 Encounter Date: 05/11/2024 SUBJECTIVE: Chief Complaint: Chief Complaint Patient presents with Hypertension Does check at home every morning. Been good. Patient ID: Laxmi Torres is a 48 y.o. male. 48-year-old gentleman lives in adult foster care Past medical history of type 2 diabetes last A1c of 6.5 completed earlier this year Adherent to therapies including: -metformin, Victoza, simvastatin Currently having exacerbation of symptoms of GERD, requesting refill of Pepto-Bismol. The following portions of the patient's history were reviewed and updated as appropriate: allergies, current medications, past family history, past medical history, past social history, past surgical history and problem list. PHYSICAL EXAMINATION: Vitals: 05/11/24 1401 BP: 118/78 Pulse: 78 Temp: 37.1 C (98.7 F) TempSrc: Oral SpO2: 98% Weight: 105 kg (231 lb 6.4 oz) Height: 177.8 cm (5' 10 ) Physical Exam Vitals reviewed. Constitutional: General: He is not in acute distress. Appearance: Normal appearance. Eyes: Extraocular Movements: Extraocular movements intact. Pupils: Pupils are equal, round, and reactive to light. Cardiovascular: Rate and Rhythm: Normal rate and regular rhythm. Pulses: Normal pulses. Heart sounds: Normal heart sounds. Pulmonary: Effort: Pulmonary effort is normal. No respiratory distress. Breath sounds: Normal breath sounds. No wheezing or rhonchi. Abdominal: General: Bowel sounds are normal. There is no distension. Palpations: Abdomen is soft. There is no mass. Tenderness: There is no abdominal tenderness. There is no right CVA tenderness, left CVA tenderness or guarding. Musculoskeletal: Cervical back: Normal range of motion and neck supple. Neurological: Mental Status: He is alert and oriented to person, place, and time. Mental status is at baseline. ASSESSMENT/PLAN: Laxmi was seen today for hypertension. Diagnoses and all orders for this visit: Disc displacement, lumbar - gabapentin (NEURONTIN) 600 mg tablet; Take 1 tablet (600 mg total) by mouth in the morning and 1 tablet (600 mg total) before bedtime. Type 2 diabetes mellitus without complication, without long-term current use of insulin ([facility]) - pen needle, diabetic (COMFORT EZ PEN NEEDLES) 32 gauge x 1/4 needle; Use 1 needle daily with Victoza Obesity, morbid ([facility]) Hypercholesteremia Immunization counseling - Flucelvax vaccine 6m+ YRS plus Preservative Free IM Encounter for immunization - Flucelvax vaccine 6m+ YRS plus Preservative Free IM Other orders - bismuth subsalicylate (PEPTO BISMOL) 262 mg/15 mL suspension; Take 15 mL by mouth every 6 (six) hours as needed for indigestion or heartburn. JUSTIN UNDERWOOD MD Family Medicine Physician [facility] / [facility] 05/11/24 This note was completed with voice recognition software. The document was reviewed for errors however some may still be present. Please do not hesitate to contact/[facility] the author to verify any questions/concerns. documented in this encounter [facility] 04-30-2024 History of Present illness Narrative [facility] [address] [place] [address] Patient: Laxmi Torres Sex: male : 1975 Age: 48 y.o. PCP: JUSTIN UNDERWOOD MD 04/30/2024 Laxmi Torres is here for a(n) post procedure follow up 04/17/2024 permanent spinal cord stimulator placement with 100% relief that continues. Patient's caregiver noted that patient's posture has improved. Date of onset of pain: 2015 , pain has lasted greater than 3 months. Pain scale before treatment: 8/10 Pre-op pain score: 8/10 Post-op pain score: 2/10 Percentage of relief after and duration: 100% continues Pain scale after treatment: 0/10 Chief Complaint Patient presents with Back Pain HPI: 09/23/20 Left L5S1 NRI 50% relief 11/03/21 Timoteo SI joint injections with 100% relief for 3 hours then slowly back to baseline next day. 03/03/2021 Bilat L1/2 5/1 Medial Branch Block w/ 90-100% relief for a couple days then 50% relief for 2 weeks. 04/14/21 Timoteo L1/2, 5/1 MBB w/ 100% relief 06/23/21 Lt L1/2, 5/1 RFA w/ 50% relief and 06/05/21 Rt L1/2, 5/1 RFA w/ 50% relief Bilateral SI joint injection on 09/29/2021 with 100% relief for 2 hours. Left SI joint radiofrequency ablation and 12/15/2021 Right SI radiofrequency ablation With 60% relief 09/28/2022 right and 10/12/2022 left L 1/2 L5/S1 Radiofrequency ablations with 50% relief x 2 weeks 12/14/2022 bilateral sacroiliac injections with 50% relief the day of procedure. right L 1/2 nerve root injection on 09/13/2023 with no relief. 02/21/24 SCS trial with 100% relief for duration of trial 04/17/2024 permanent spinal cord stimulator placement with 100% relief that continues. Back Pain This is a chronic (2016 (or before per caretaker grounds)) problem. The current episode started more than 1 year ago. The problem occurs rarely. The problem has been resolved (post SCS placement) since onset. The pain is present in the sacro-iliac, lumbar spine and gluteal. The pain does not radiate. The pain is at a severity of 0/10 (post SCS placement). The patient is experiencing no pain. Exacerbated by: tolerating all activity post SCS. Stiffness is present In the morning, all day and at night (intermittently). Pertinent negatives include no bladder incontinence, bowel incontinence, chest pain, fever, leg pain, numbness, tingling or weakness. Risk factors include lack of exercise, obesity and sedentary lifestyle (osteoarthritis). He has tried ice, heat, analgesics, home exercises, muscle relaxant, NSAIDs and walking (PT (06/2021-Jul 2022), HEP, ice/heat/rest, Tylenol, Gabapentin, Meloxicam daily; Muscle relaxers/Percocet in past, IcyHot. DANA L1/2 on 09/25/19 w/no relief. Back surg 12/2019 w/ mod relief. ., flexeril, lidocaine, toradol) for the symptoms. The treatment provided mild (Left L5, S1 NRI on 10/28/2020 w/100% relief of back & leg pain. ) relief. The effect of pain on patient's ADLS: Minimal Impairment. Past Medical History: Diagnosis Date Abnormal gait 07/02/2011 Acute pancreatitis 08/12/2020 Allergic rhinitis Anxiety Autism Back problem Bipolar I disorder [place] 01/17/2017 Chipped tooth upper molar chipped Chronic pain disorder Chronic sinusitis COVID-19 2019 Depression Developmental delay disorder Deviated nasal septum 07/30/2022 Diabetes mellitus, type 2 ([facility] [place] Disc displacement, lumbar 08/20/2019 DNS (deviated nasal septum) alcohol syndrome GERD (gastroesophageal reflux disease) Hemorrhoids without complication 08/12/2020 Hip pain, bilateral Hyperlipidemia Hypersomnia Hypertension Hypokalemia Impulse control disorder in adult Injury of back Intellectual functioning disability 07/02/2011 Leukopenia 03/04/2023 Low back pain Lumbar post-laminectomy syndrome 08/06/2011 Mild oppositional defiant disorder with angry or irritable mood Nasal congestion Nasal turbinate hypertrophy Neck pain Vienna's syndrome Obstructive sleep apnea syndrome 07/02/2011 Seizure disorder ([facility] [place]) states in childhood, denies seizures as an adult Sleep apnea Smoker Spinal stenosis of lumbar region 08/2023 Tachycardia 08/12/2020 Past Surgical History: Procedure Laterality Date BACK SURGERY CHOLECYSTECTOMY INJECTION BLOCK EPIDURAL STEROID LUMBAR/SACRAL: left L 5,1 nroot Left 09/23/2020 Performed by Titus Pritchett MD at [facility] INJECTION BLOCK EPIDURAL STEROID LUMBAR/SACRAL: Left L 5/1 Nroot Left 10/28/2020 Performed by Titus Pritchett MD at [facility] INJECTION BLOCK NERVE MEDIAL BRANCH: bilat L 1/2 5/ Bilateral 04/14/2021 Performed by Titus Pritchett MD at [facility] INJECTION BLOCK NERVE MEDIAL BRANCH: bilat L 1/2 _ / Bilateral 03/03/2021 Performed by Titus Pritchett MD at [facility] INJECTION BLOCK SACROILIAC JOINT Bilateral 12/14/2022 Performed by Titus Pritchett MD at [facility] INJECTION BLOCK SACROILIAC JOINT Bilateral 11/03/2021 Performed by Titus Pritchett MD at [facility] INJECTION BLOCK SACROILIAC JOINT Bilateral 09/29/2021 Performed by Titus Pritchett MD at [facility] LUMBAR OR SACRAL EPIDURAL BLOCK WITH STEROIDS: L12 DANA N/A 09/25/2019 Performed by Titus Pritchett MD at [facility] LUMBAR OR SACRAL EPIDURAL BLOCK WITH STEROIDS: L12 DANA N/A 08/28/2019 Performed by Titus Pritchett MD at [facility] SPINE TRANSFORAMINAL: right L 1,2 Nroot Right 09/13/2023 Performed by Titus Pritchett MD at [facility] INSERTION PERMANENT STIMULATOR SPINAL CORD N/A 04/17/2024 Performed by Titus Pritchett MD at [facility] INSERTION STIMULATOR SPINAL CORD- TRIAL N/A 02/21/2024 Performed by Titus Pritchett MD at [facility] NECK SURGERY Fusion C4-7 OPEN FUNCTIONAL RHINOPLASTY SEPTOPLASTY NOSE WITH REPAIR OF TURBINATE FRACTURE N/A 03/11/2023 Performed by Marlee Vazquez DO at [facility] RADIOFREQUENCY ABLATION SPINAL: left L 1/2 _ / Left 10/12/2022 Performed by Titus Pritchett MD at [facility] RADIOFREQUENCY ABLATION SPINAL: left L 1/2 _5/1 Left 06/23/2021 Performed by Titus Pritchett MD at [facility] RADIOFREQUENCY ABLATION SPINAL: left SI Left 12/01/2021 Performed by Titus Pritchett MD at [facility] RADIOFREQUENCY ABLATION SPINAL: right L / _ 11/19 Right 09/28/2022 Performed by Titus Pritchett MD at [facility] RADIOFREQUENCY ABLATION SPINAL: right L / _11/19 Right 06/05/2021 Performed by Titus Pritchett MD at [facility] RADIOFREQUENCY ABLATION SPINAL: right SI Right 12/15/2021 Performed by Titus Pritchett MD at [facility] REDUCTION TURBINATE Bilateral 03/11/2023 Performed by Marlee Vazquez DO at [facility] Allergies Allergen Reactions Penicillins Hives Unknown reaction Sulfa (Sulfonamide Antibiotics) Unknown reraction Family History Problem Relation Age of Onset Sleep apnea Father Anesthesia problems Neg Hx Social History Socioeconomic History Marital status: Single Spouse name: Not on file Number of children: Not on file Years of education: Not on file Highest education level: Not on file Occupational History Not on file Tobacco Use Smoking status: Every Day Current packs/day: 0.25 Average packs/day: 0.3 packs/day for 1.8 years (0.4 ttl pk-yrs) Types: Vaping/E-cigarettes , Cigarettes Start date: 2022 Smokeless tobacco: Never Vaping Use Vaping status: Every Day Substances: Nicotine, Flavoring Substance and Sexual Activity Alcohol use: No Drug use: No Sexual activity: Defer Other Topics Concern Caffeine Use Yes Social History Narrative Not on file Social Determinants of Health Financial Resource Strain: Low Risk (05/08/2023) Overall Financial Resource Strain (CARDIA) Difficulty of Paying Living Expenses: Not hard at all Food Insecurity: No Food Insecurity (04/30/2024) Hunger Screening Food Insecurity - Worry: Never True Food Insecurity - Inability: Never True Transportation Needs: No Transportation Needs (05/08/2023) PRAPARE - Transportation Lack of Transportation (Medical): No Lack of Transportation (Non-Medical): No Physical Activity: Not on file Stress: Not on file Social Connections: Not on file Interpersonal Safety: Unknown (10/10/2023) [facility] Humiliation, Afraid, Rape, and Kick questionnaire Fear of Current or Ex-Partner: No Emotionally Abused: Not on file Physically Abused: Not on file Sexually Abused: Not on file Housing Instability: Low Risk (05/08/2023) Housing Instability Housing Instability: No Review of Systems Constitutional: Negative for fever. Respiratory: Negative. Cardiovascular: Negative for chest pain. Gastrointestinal: Negative. Negative for bowel incontinence. Genitourinary: Negative. Negative for bladder incontinence. Musculoskeletal: Positive for back pain. Skin: Negative. Neurological: Negative for tingling, weakness and numbness. Psychiatric/Behavioral: Negative. Vital Signs: BP 116/84 Pulse 84 Resp 16 SpO2 97% Physical Exam: GENERAL - Healthy patient that appears stated age. HEENT - Normocephalic / Atraumatic, Extraoccular movements intact, trachea midline, thyroid within normal limits. CV - pulse regular, Warm extremities with appropriate color of nailbeds. RESP - No obvious wheezing, No Shortness of Breath, No overexertion response to exam maneuvers. COORDINATION - remains intact. PSYCH - Alert and Oriented x4, Attentive and appropriate, constitutionally normal, displays normal mood and affect per situation, answered questions appropriately during examination, demonstrated appropriate attention during discussion, demonstrated appropriate cognitive reasoning and understanding of the medical condition by asking appropriate questions regarding the diagnosis and risks/benefits/alternatives of treatment modalities. No obvious deficits in memory, reasoning, or intellect. Lumbar: SKIN - No rashes or bruising in the area of the patient s pain. SCS incision is well healed with no signs of infection. LYMPH NODES - demonstrate no obvious enlargement. EXTREMITIES - Lower extremities are warm, with minimal edema and palpable pulses. No significant tenderness to palpation noted in the lumbar spine and paraspinal musculature. Mild pain is elicited with flexion, extension, and lateral rotation of the lumbar spine. Range of motion is not diminished with these motions. Facet palpation is negative for significant pain and facet loading maneuvers elicit only mild pain that is not concordant with the patient s normal pain complaints. STRENGTH - noted to be 5 out of 5 all muscle groups bilateral lower extremities including muscles involving hip flexion and abduction, knee flexion and extension, as well as foot dorsiflexion and plantarflexion. No notable atrophy, fasciculations or spasm. SENSORY - No notable sensory deficits in the bilateral lower extremities to touch or pinprick in all dermatomal distributions. Straight Leg Raise is negative bilaterally. Gait is normal. Assessment/Treatment Plan: Laxmi was seen today for back pain. Diagnoses and all orders for this visit: Postlaminectomy syndrome of lumbar region Monitor Follow up 6 weeks The medications prescribed have been reviewed for medication interactions/contraindications and/or for upcoming procedures: continue current medication regimen without any changes. DISCUSSION: Treatment options discussed with patient and all questions answered to patient's satisfaction. Discussed the rules and regulations surrounding prescription of opioids and compliance at length. Failure to follow the rules and regulation will result in tapering and discontinuation of medications if applicable. Prescribed medication that requires intensive monitoring for toxicity We do not currently prescribe any controlled substance from this practice. It does appear that the patient benefited from the previous injection and the benefit has continued through this visit. At this time, we will monitor the patient s symptoms from an interventional standpoint and consider another injection in the future if the patient s symptoms return or intensify severely. The patient was made aware that they should call if symptoms worsen or if their pain begins to have a negative impact on their quality of life and activities of daily living again. The spine model was demonstrated and MRI was reviewed and used to explain the condition. Chronic conditions not treated during this visit that affected my overall medical decision making: Diabetes OARRS: Reviewed. Scribe Statement: Scribed for and in the presence of BRUCE SERVIN by Abril Durán CNA. Provider Statement: I, BRUCE SERVIN, personally performed the services described in the documentation, as scribed by Abril Durán CNA in my presence, and it is both accurate and complete. Abril Durán CNA 04/30/24 [id number] BRUCE Servin 05/07/24 [id number] documented in this encounter [facility] 04-07-2024 Instructions Eunice Stoll RN - 04/07/2024 1:30 PM EDT Preoperative Education Checklist- General Surgery date: 04/17/24 Surgery time: 2:00 p.m. Arrival time: 12:00 p.m. 1. Bring a photo ID and your insurance card with you the day of surgery. You will check in at the main lobby of the [facility]- registration desk is straight ahead as soon as you walk in. Tell them you are here for surgery. 2. If you have a Living Will/Durable Power of Geophysical E Logger for Health Care that is not on file here, please bring a copy the day of surgery. 3. Please shower/bathe the night before surgery with the provided soap or wipes. Do not shower the morning of surgery- you will do use wipes when you arrive here at the hospital before getting into your surgical gown. Do not shave the area of your procedure for 2 days prior to your surgery. 4. NO powder, lotion, perfume/cologne, aftershave, make-up, deodorant, or hair products after you have bathed. 5. NO nail cambodian/acrylic on at least one finger. If you are having a hand, wrist or foot surgery then all nail cambodian and artificial/acrylic nails must be removed from that hand or foot. 6. Avoid ALL Aspirin and non-steroidal anti-inflammatory drugs and certain vitamins (Ibuprofen, Advil, Aleve, Excedrin, Meloxicam, Celebrex, fish/krill oil, etc.) for 7 days prior to surgery as instructed by your surgeon and/or your prescribing doctor. Tylenol IS ALLOWED. If you are on Ticlid, Xarelto, Eliquis, Pradaxa, Plavix or Coumadin, please check with your prescribing doctor for instructions for when to stop them. 7. If you use an inhaler, continue to use it routinely. 8. Nothing to eat or drink (not even water, gum, mints, or hard candy!) AFTER midnight prior to your surgery. 9. Take only medications that you are instructed to on the morning of surgery with a TINY SIP OF WATER. 10. Choose a responsible adult that will be able to drive you home when you are discharged from your hospital stay for your surgery and can stay with you in your home for 24 hours after your procedure. You must NOT drive any vehicle or operate any machinery for 24 hours after surgery. 11. When you dress for your appointment, please wear loose fitting clothing that is appropriate to accommodate your surgical area procedure. BRING WITH YOU ANY DEVICES YOU MAY NEED: DENTON hose, ice machine, sling/swath, brace or special shoe, oversized zip-up or button up shirt, CPAP machine if staying overnight. 12. Do NOT wear jewelry, watches, or any piercings or metal for surgery- leave these valuables and money at home. 13. Do NOT wear contact lenses for surgery- glasses are okay if needed. 14. The anesthesiologist will talk with you the day of surgery and will ask you to sign a Consent Form. 15. Refrain from smoking or any type of tobacco use for at least 8 hours and marijuana for 24 hours prior to arrival for your surgery. 16. If a GREEN BLOOD band is given to you, please bring it with you for the day of surgery. 17. Notify your surgeon if you develop any illness before your surgery. 18. If you are staying overnight, please DO NOT BRING your home medications with you. 19. If you have any questions prior to surgery, please call the Preadmission Testing office at [phone], Mon.-Fri. 7 a.m.-3 p.m. Leave a voicemail if needed. Pre-Surgery Instructions: Medication Instructions acetaminophen (TYLENOL EXTRA STRENGTH) 500 mg tablet Stop taking 0 days prior to procedure albuterol (PROVENTIL HFA;VENTOLIN HFA) 90 mcg/actuation inhaler Stop taking 0 days prior to procedure aspirin 81 mg Stop taking 1 week prior to procedure BD AUTOSHIELD DUO PEN NEEDLE 30 gauge x 3/16 needle Stop taking 0 days prior to procedure benztropine (COGENTIN) 1 mg tablet Stop taking 0 days prior to procedure calcium carbonate (TUMS) 200 mg elemental (500 mg) chewable tablet Stop taking 0 days prior to procedure cetirizine (ZyrTEC) 10 mg tablet Stop taking 0 days prior to procedure diphenhydrAMINE (BENADRYL) 25 mg capsule Stop taking 0 days prior to procedure divalproex (DEPAKOTE) 500 mg EC tablet Take morning of procedure docusate sodium (COLACE) 100 mg capsule Stop taking 0 days prior to procedure fenofibrate (LOFIBRA) 54 mg tablet Stop taking 0 days prior to procedure fluticasone propionate (FLONASE) 50 mcg/actuation nasal spray Stop taking 0 days prior to procedure gabapentin (NEURONTIN) 600 mg tablet Stop taking 0 days prior to procedure liraglutide (VICTOZA 3-NITESH) 0.6 mg/0.1 mL (18 mg/3 mL) pen injector Stop taking 0 days prior to procedure meclizine (ANTIVERT) 25 mg tablet Stop taking 0 days prior to procedure melatonin 1 mg tablet,chewable Stop taking 0 days prior to procedure metFORMIN XR (GLUCOPHAGE XR) 500 mg 24 hr tablet Stop taking 0 days prior to procedure methocarbamoL (ROBAXIN) 500 mg tablet Stop taking 0 days prior to procedure metoprolol succinate XL (TOPROL XL) 50 mg 24 hr tablet Take morning of procedure metoprolol tartrate (LOPRESSOR) 25 mg tablet Take morning of procedure montelukast (SINGULAIR) 10 mg tablet Stop taking 0 days prior to procedure naproxen (NAPROSYN) 500 mg tablet Stop taking 1 week prior to procedure omeprazole (PriLOSEC) 20 mg capsule Take morning of procedure ondansetron ODT (ZOFRAN ODT) 4 mg disintegrating tablet Stop taking 0 days prior to procedure paliperidone (INVEGA) 3 mg 24 hr tablet Stop taking 0 days prior to procedure paliperidone (INVEGA) 3 mg 24 hr tablet Stop taking 0 days prior to procedure pen needle, diabetic (COMFORT EZ PEN NEEDLES) 32 gauge x 1/4 needle Stop taking 0 days prior to procedure QUEtiapine (SEROquel) 300 mg tablet Stop taking 0 days prior to procedure QUEtiapine (SEROquel) 50 mg tablet Stop taking 0 days prior to procedure sertraline (ZOLOFT) 100 mg tablet Stop taking 0 days prior to procedure simvastatin (ZOCOR) 20 mg tablet Stop taking 0 days prior to procedure bismuth subsalicylate (PEPTO BISMOL) 262 mg/15 mL suspension Stop taking 0 days prior to procedure ketoconazole (NIZORAL) 2 % shampoo Stop taking 0 days prior to procedure How to Avoid an Infection after Your Surgery Your doctor will give you specific instructions, but remember: -ALWAYS wash hands before caring for your incision. -No picking, scratching, or rubbing your incision. -No creams, lotion, powder, rubbing alcohol or hydrogen peroxide on the incision (can harm the tissue and slow healing). -Your doctor will give you specific instructions for what type of dressing you will need and how often it will need changed for infection purposes. -No tight clothing on incision. -Do not allow anyone to touch your incision unless they are cleaning, checking, or redressing it (be sure they wash their hands first). -No contact of your incision with pets; avoid sleeping with pets. -Take full course of antibiotic if prescribed for you after surgery- do not stop unless directed to by your physician. You may also be given an antibiotic prior to your surgery to help prevent surgical site infections. -Eat a healthy and varied diet including proteins, fruits, and vegetables to help promote wound healing and keep blood sugars under control if you are diabetic. -Smoking slows the healing process by decreasing the amount of oxygen in your blood that is needed for tissue healing. Try to avoid or stop smoking if possible. LOOK at your incision each morning and each night to check the progress of healing. Some soreness, numbness, itching and/or mild bruising around the incision is normal. Call your doctor if you notice any of the following: -Increased redness or hardening around the incision area. -Increased pain at the incision site. -Incision feels hot to the touch. -Swelling or pulling apart of the incision edges. -Yellow or green drainage or foul odor coming from the incision. -Bleeding from the incision (apply pressure as needed). -Fever higher than 101 degrees Fahrenheit for more than 4 hours. SHOWERING: Your doctor will give you specific instructions, but remember: -Be careful getting into and out of the shower. -Showers should be quick (5 minutes or less). -Use a clean washcloth to gently wash your incision with soap and water and pat the area dry with a clean towel. -No re-using wash cloths or towels; get a fresh one to clean your incision. -Do not soak in the bathtub, go swimming or use a hot tub (Jacuzzi), or perform activities where your incision is submerged in water or exposed to any fluids or substances until instructed by your doctor. -If your have the sticky strips (steri-strips) over the incision, it is OK to shower with them. Do not remove them. Let them fall off on their own. If you have a question, call your doctor s office. Go to the follow-up appointment with your doctor. documented in this encounter [facility] 04-07-2024 Miscellaneous Notes Preoperative Education Checklist- General Surgery date: 04/17/24 Surgery time: 2:00 p.m. Arrival time: 12:00 p.m. 1. Bring a photo ID and your insurance card with you the day of surgery. You will check in at the main lobby of the [facility]- registration desk is straight ahead as soon as you walk in. Tell them you are here for surgery. 2. If you have a Living Will/Durable Power of Geophysical E Logger for Health Care that is not on file here, please bring a copy the day of surgery. 3. Please shower/bathe the night before surgery with the provided soap or wipes. Do not shower the morning of surgery- you will do use wipes when you arrive here at the hospital before getting into your surgical gown. Do not shave the area of your procedure for 2 days prior to your surgery. 4. NO powder, lotion, perfume/cologne, aftershave, make-up, deodorant, or hair products after you have bathed. 5. NO nail cambodian/acrylic on at least one finger. If you are having a hand, wrist or foot surgery then all nail cambodian and artificial/acrylic nails must be removed from that hand or foot. 6. Avoid ALL Aspirin and non-steroidal anti-inflammatory drugs and certain vitamins (Ibuprofen, Advil, Aleve, Excedrin, Meloxicam, Celebrex, fish/krill oil, etc.) for 7 days prior to surgery as instructed by your surgeon and/or your prescribing doctor. Tylenol IS ALLOWED. If you are on Ticlid, Xarelto, Eliquis, Pradaxa, Plavix or Coumadin, please check with your prescribing doctor for instructions for when to stop them. 7. If you use an inhaler, continue to use it routinely. 8. Nothing to eat or drink (not even water, gum, mints, or hard candy!) AFTER midnight prior to your surgery. 9. Take only medications that you are instructed to on the morning of surgery with a TINY SIP OF WATER. 10. Choose a responsible adult that will be able to drive you home when you are discharged from your hospital stay for your surgery and can stay with you in your home for 24 hours after your procedure. You must NOT drive any vehicle or operate any machinery for 24 hours after surgery. 11. When you dress for your appointment, please wear loose fitting clothing that is appropriate to accommodate your surgical area procedure. BRING WITH YOU ANY DEVICES YOU MAY NEED: DENTON hose, ice machine, sling/swath, brace or special shoe, oversized zip-up or button up shirt, CPAP machine if staying overnight. 12. Do NOT wear jewelry, watches, or any piercings or metal for surgery- leave these valuables and money at home. 13. Do NOT wear contact lenses for surgery- glasses are okay if needed. 14. The anesthesiologist will talk with you the day of surgery and will ask you to sign a Consent Form. 15. Refrain from smoking or any type of tobacco use for at least 8 hours and marijuana for 24 hours prior to arrival for your surgery. 16. If a GREEN BLOOD band is given to you, please bring it with you for the day of surgery. 17. Notify your surgeon if you develop any illness before your surgery. 18. If you are staying overnight, please DO NOT BRING your home medications with you. 19. If you have any questions prior to surgery, please call the Preadmission Testing office at [phone], Mon.-Fri. 7 a.m.-3 p.m. Leave a voicemail if needed. Pre-Surgery Instructions: Medication Instructions acetaminophen (TYLENOL EXTRA STRENGTH) 500 mg tablet Stop taking 0 days prior to procedure albuterol (PROVENTIL HFA;VENTOLIN HFA) 90 mcg/actuation inhaler Stop taking 0 days prior to procedure aspirin 81 mg Stop taking 1 week prior to procedure BD AUTOSHIELD DUO PEN NEEDLE 30 gauge x 3/16 needle Stop taking 0 days prior to procedure benztropine (COGENTIN) 1 mg tablet Stop taking 0 days prior to procedure calcium carbonate (TUMS) 200 mg elemental (500 mg) chewable tablet Stop taking 0 days prior to procedure cetirizine (ZyrTEC) 10 mg tablet Stop taking 0 days prior to procedure diphenhydrAMINE (BENADRYL) 25 mg capsule Stop taking 0 days prior to procedure divalproex (DEPAKOTE) 500 mg EC tablet Take morning of procedure docusate sodium (COLACE) 100 mg capsule Stop taking 0 days prior to procedure fenofibrate (LOFIBRA) 54 mg tablet Stop taking 0 days prior to procedure fluticasone propionate (FLONASE) 50 mcg/actuation nasal spray Stop taking 0 days prior to procedure gabapentin (NEURONTIN) 600 mg tablet Stop taking 0 days prior to procedure liraglutide (VICTOZA 3-NITESH) 0.6 mg/0.1 mL (18 mg/3 mL) pen injector Stop taking 0 days prior to procedure meclizine (ANTIVERT) 25 mg tablet Stop taking 0 days prior to procedure melatonin 1 mg tablet,chewable Stop taking 0 days prior to procedure metFORMIN XR (GLUCOPHAGE XR) 500 mg 24 hr tablet Stop taking 0 days prior to procedure methocarbamoL (ROBAXIN) 500 mg tablet Stop taking 0 days prior to procedure metoprolol succinate XL (TOPROL XL) 50 mg 24 hr tablet Take morning of procedure metoprolol tartrate (LOPRESSOR) 25 mg tablet Take morning of procedure montelukast (SINGULAIR) 10 mg tablet Stop taking 0 days prior to procedure naproxen (NAPROSYN) 500 mg tablet Stop taking 1 week prior to procedure omeprazole (PriLOSEC) 20 mg capsule Take morning of procedure ondansetron ODT (ZOFRAN ODT) 4 mg disintegrating tablet Stop taking 0 days prior to procedure paliperidone (INVEGA) 3 mg 24 hr tablet Stop taking 0 days prior to procedure paliperidone (INVEGA) 3 mg 24 hr tablet Stop taking 0 days prior to procedure pen needle, diabetic (COMFORT EZ PEN NEEDLES) 32 gauge x 1/4 needle Stop taking 0 days prior to procedure QUEtiapine (SEROquel) 300 mg tablet Stop taking 0 days prior to procedure QUEtiapine (SEROquel) 50 mg tablet Stop taking 0 days prior to procedure sertraline (ZOLOFT) 100 mg tablet Stop taking 0 days prior to procedure simvastatin (ZOCOR) 20 mg tablet Stop taking 0 days prior to procedure bismuth subsalicylate (PEPTO BISMOL) 262 mg/15 mL suspension Stop taking 0 days prior to procedure ketoconazole (NIZORAL) 2 % shampoo Stop taking 0 days prior to procedure How to Avoid an Infection after Your Surgery Your doctor will give you specific instructions, but remember: -ALWAYS wash hands before caring for your incision. -No picking, scratching, or rubbing your incision. -No creams, lotion, powder, rubbing alcohol or hydrogen peroxide on the incision (can harm the tissue and slow healing). -Your doctor will give you specific instructions for what type of dressing you will need and how often it will need changed for infection purposes. -No tight clothing on incision. -Do not allow anyone to touch your incision unless they are cleaning, checking, or redressing it (be sure they wash their hands first). -No contact of your incision with pets; avoid sleeping with pets. -Take full course of antibiotic if prescribed for you after surgery- do not stop unless directed to by your physician. You may also be given an antibiotic prior to your surgery to help prevent surgical site infections. -Eat a healthy and varied diet including proteins, fruits, and vegetables to help promote wound healing and keep blood sugars under control if you are diabetic. -Smoking slows the healing process by decreasing the amount of oxygen in your blood that is needed for tissue healing. Try to avoid or stop smoking if possible. LOOK at your incision each morning and each night to check the progress of healing. Some soreness, numbness, itching and/or mild bruising around the incision is normal. Call your doctor if you notice any of the following: -Increased redness or hardening around the incision area. -Increased pain at the incision site. -Incision feels hot to the touch. -Swelling or pulling apart of the incision edges. -Yellow or green drainage or foul odor coming from the incision. -Bleeding from the incision (apply pressure as needed). -Fever higher than 101 degrees Fahrenheit for more than 4 hours. SHOWERING: Your doctor will give you specific instructions, but remember: -Be careful getting into and out of the shower. -Showers should be quick (5 minutes or less). -Use a clean washcloth to gently wash your incision with soap and water and pat the area dry with a clean towel. -No re-using wash cloths or towels; get a fresh one to clean your incision. -Do not soak in the bathtub, go swimming or use a hot tub (Jacuzzi), or perform activities where your incision is submerged in water or exposed to any fluids or substances until instructed by your doctor. -If your have the sticky strips (steri-strips) over the incision, it is OK to shower with them. Do not remove them. Let them fall off on their own. If you have a question, call your doctor s office. Go to the follow-up appointment with your doctor. Surgical instructions reviewed with patient and his caregiver. Both verbalized understanding. Patient's EKG was initially reading acute DC finding. EKG taken to Dr Winslwo in the cardiology office and compared the finding to an EKG from last year. He said no acute changes noted and that the EKG was okay. documented in this encounter [facility] 04-07-2024 Nurse Note Preoperative Education Checklist- General Surgery date: 04/17/24 Surgery time: 2:00 p.m. Arrival time: 12:00 p.m. 1. Bring a photo ID and your insurance card with you the day of surgery. You will check in at the main lobby of the [facility] [place]- registration desk is straight ahead as soon as you walk in. Tell them you are here for surgery. 2. If you have a Living Will/Durable Power of Ge[employer] E Logger for Health Care that is not on file here, please bring a copy the day of surgery. 3. Please shower/bathe the night before surgery with the provided soap or wipes. Do not shower the morning of surgery- you will do use wipes when you arrive here at the hospital before getting into your surgical gown. Do not shave the area of your procedure for 2 days prior to your surgery. 4. NO powder, lotion, perfume/cologne, aftershave, make-up, deodorant, or hair products after you have bathed. 5. NO nail cambodian/acrylic on at least one finger. If you are having a hand, wrist or foot surgery then all nail cambodian and artificial/acrylic nails must be removed from that hand or foot. 6. Avoid ALL Aspirin and non-steroidal anti-inflammatory drugs and certain vitamins (Ibuprofen, Advil, Aleve, Excedrin, Meloxicam, Celebrex, fish/krill oil, etc.) for 7 days prior to surgery as instructed by your surgeon and/or your prescribing doctor. Tylenol IS ALLOWED. If you are on Ticlid, Xarelto, Eliquis, Pradaxa, Plavix or Coumadin, please check with your prescribing doctor for instructions for when to stop them. 7. If you use an inhaler, continue to use it routinely. 8. Nothing to eat or drink (not even water, gum, mints, or hard candy!) AFTER midnight prior to your surgery. 9. Take only medications that you are instructed to on the morning of surgery with a TINY SIP OF WATER. 10. Choose a responsible adult that will be able to drive you home when you are discharged from your hospital stay for your surgery and can stay with you in your home for 24 hours after your procedure. You must NOT drive any vehicle or operate any machinery for 24 hours after surgery. 11. When you dress for your appointment, please wear loose fitting clothing that is appropriate to accommodate your surgical area procedure. BRING WITH YOU ANY DEVICES YOU MAY NEED: DENTON hose, ice machine, sling/swath, brace or special shoe, oversized zip-up or button up shirt, CPAP machine if staying overnight. 12. Do NOT wear jewelry, watches, or any piercings or metal for surgery- leave these valuables and money at home. 13. Do NOT wear contact lenses for surgery- glasses are okay if needed. 14. The anesthesiologist will talk with you the day of surgery and will ask you to sign a Consent Form. 15. Refrain from smoking or any type of tobacco use for at least 8 hours and marijuana for 24 hours prior to arrival for your surgery. 16. If a GREEN BLOOD band is given to you, please bring it with you for the day of surgery. 17. Notify your surgeon if you develop any illness before your surgery. 18. If you are staying overnight, please DO NOT BRING your home medications with you. 19. If you have any questions prior to surgery, please call the Preadmission Testing office at [phone], Mon.-Fri. 7 a.m.-3 p.m. Leave a voicemail if needed. Pre-Surgery Instructions: Medication Instructions acetaminophen (TYLENOL EXTRA STRENGTH) 500 mg tablet Stop taking 0 days prior to procedure albuterol (PROVENTIL HFA;VENTOLIN HFA) 90 mcg/actuation inhaler Stop taking 0 days prior to procedure aspirin 81 mg Stop taking 1 week prior to procedure BD AUTOSHIELD DUO PEN NEEDLE 30 gauge x 3/16 needle Stop taking 0 days prior to procedure benztropine (COGENTIN) 1 mg tablet Stop taking 0 days prior to procedure calcium carbonate (TUMS) 200 mg elemental (500 mg) chewable tablet Stop taking 0 days prior to procedure cetirizine (ZyrTEC) 10 mg tablet Stop taking 0 days prior to procedure diphenhydrAMINE (BENADRYL) 25 mg capsule Stop taking 0 days prior to procedure divalproex (DEPAKOTE) 500 mg EC tablet Take morning of procedure docusate sodium (COLACE) 100 mg capsule Stop taking 0 days prior to procedure fenofibrate (LOFIBRA) 54 mg tablet Stop taking 0 days prior to procedure fluticasone propionate (FLONASE) 50 mcg/actuation nasal spray Stop taking 0 days prior to procedure gabapentin (NEURONTIN) 600 mg tablet Stop taking 0 days prior to procedure liraglutide (VICTOZA 3-NITESH) 0.6 mg/0.1 mL (18 mg/3 mL) pen injector Stop taking 0 days prior to procedure meclizine (ANTIVERT) 25 mg tablet Stop taking 0 days prior to procedure melatonin 1 mg tablet,chewable Stop taking 0 days prior to procedure metFORMIN XR (GLUCOPHAGE XR) 500 mg 24 hr tablet Stop taking 0 days prior to procedure methocarbamoL (ROBAXIN) 500 mg tablet Stop taking 0 days prior to procedure metoprolol succinate XL (TOPROL XL) 50 mg 24 hr tablet Take morning of procedure metoprolol tartrate (LOPRESSOR) 25 mg tablet Take morning of procedure montelukast (SINGULAIR) 10 mg tablet Stop taking 0 days prior to procedure naproxen (NAPROSYN) 500 mg tablet Stop taking 1 week prior to procedure omeprazole (PriLOSEC) 20 mg capsule Take morning of procedure ondansetron ODT (ZOFRAN ODT) 4 mg disintegrating tablet Stop taking 0 days prior to procedure paliperidone (INVEGA) 3 mg 24 hr tablet Stop taking 0 days prior to procedure paliperidone (INVEGA) 3 mg 24 hr tablet Stop taking 0 days prior to procedure pen needle, diabetic (COMFORT EZ PEN NEEDLES) 32 gauge x 1/4 needle Stop taking 0 days prior to procedure QUEtiapine (SEROquel) 300 mg tablet Stop taking 0 days prior to procedure QUEtiapine (SEROquel) 50 mg tablet Stop taking 0 days prior to procedure sertraline (ZOLOFT) 100 mg tablet Stop taking 0 days prior to procedure simvastatin (ZOCOR) 20 mg tablet Stop taking 0 days prior to procedure bismuth subsalicylate (PEPTO BISMOL) 262 mg/15 mL suspension Stop taking 0 days prior to procedure ketoconazole (NIZORAL) 2 % shampoo Stop taking 0 days prior to procedure How to Avoid an Infection after Your Surgery Your doctor will give you specific instructions, but remember: -ALWAYS wash hands before caring for your incision. -No picking, scratching, or rubbing your incision. -No creams, lotion, powder, rubbing alcohol or hydrogen peroxide on the incision (can harm the tissue and slow healing). -Your doctor will give you specific instructions for what type of dressing you will need and how often it will need changed for infection purposes. -No tight clothing on incision. -Do not allow anyone to touch your incision unless they are cleaning, checking, or redressing it (be sure they wash their hands first). -No contact of your incision with pets; avoid sleeping with pets. -Take full course of antibiotic if prescribed for you after surgery- do not stop unless directed to by your physician. You may also be given an antibiotic prior to your surgery to help prevent surgical site infections. -Eat a healthy and varied diet including proteins, fruits, and vegetables to help promote wound healing and keep blood sugars under control if you are diabetic. -Smoking slows the healing process by decreasing the amount of oxygen in your blood that is needed for tissue healing. Try to avoid or stop smoking if possible. LOOK at your incision each morning and each night to check the progress of healing. Some soreness, numbness, itching and/or mild bruising around the incision is normal. Call your doctor if you notice any of the following: -Increased redness or hardening around the incision area. -Increased pain at the incision site. -Incision feels hot to the touch. -Swelling or pulling apart of the incision edges. -Yellow or green drainage or foul odor coming from the incision. -Bleeding from the incision (apply pressure as needed). -Fever higher than 101 degrees Fahrenheit for more than 4 hours. SHOWERING: Your doctor will give you specific instructions, but remember: -Be careful getting into and out of the shower. -Showers should be quick (5 minutes or less). -Use a clean washcloth to gently wash your incision with soap and water and pat the area dry with a clean towel. -No re-using wash cloths or towels; get a fresh one to clean your incision. -Do not soak in the bathtub, go swimming or use a hot tub (Jacuzzi), or perform activities where your incision is submerged in water or exposed to any fluids or substances until instructed by your doctor. -If your have the sticky strips (steri-strips) over the incision, it is OK to shower with them. Do not remove them. Let them fall off on their own. If you have a question, call your doctor s office. Go to the follow-up appointment with your doctor. [facility] 04-07-2024 Nurse Note Surgical instructions reviewed with patient and his caregiver. Both verbalized understanding. Patient's EKG was initially reading acute DC finding. EKG taken to Dr Winslow in the cardiology office and compared the finding to an EKG from last year. He said no acute changes noted and that the EKG was okay. [facility] 04-02-2024 Miscellaneous Notes Marco the caregiver from [employer] called into the office and stated that Rogers has told him late Saturday night that when he is urinating its burning, there was no other symptoms to report. Rx/order sent to pharmacy. Macrobid 100mg BID for 5 days. Please call and notify patient. Thanks, JUSTIN UNDERWOOD MD 04/02/24 Called to let the caregiver know that RX was sent to pharmacy, he verbalized understanding. documented in this encounter [facility] 04-02-2024 Telephone encounter Note Marco the caregiver from [employer] [facility] called into the office and stated that Rogers has told him late Saturday night that when he is urinating its burning, there was no other symptoms to report. [facility] 04-02-2024 Telephone encounter Note Rx/order sent to pharmacy. Macrobid 100mg BID for 5 days. Please call and notify patient. Thanks, JUSTIN UNDERWOOD MD 04/02/24 [facility] 04-02-2024 Telephone encounter Note Called to let the caregiver know that RX was sent to pharmacy, he verbalized understanding. [facility] 03-27-2024 Miscellaneous Notes ED Outreach This documentation is being used for Transition of Care purposes: Yes/No: No ED Outreach Date: March 27, 2024 ED Outreach Method: COMMUNICATION METHOD: Telephone ED Outreach Attempt: second ED Outreach Outcome: Contacted Patient Name of ED Facility: [facility] Date of ED Discharge: 03/26/2024 Discharge Diagnosis: Nausea and vomiting, Fatty Liver ED Chief Complaint: vomiting Current Symptom Status: improving- spoke with patient's tire care manager, [employer]aa verified. He states that patient is doing well. No lingering nausea or vomiting. Denies other concerns. Medication Changes Reviewed: yes Medication Questions/Concerns: denies concerns at this time Follow-up PCP Scheduled: Declines Follow-up Specialist Scheduled:n/a Follow up Testing Scheduled: n/a Patient Contacted Office Prior to ED Visit: No. Patient made aware of on-call provider and same day appointment availability. Additional Comments: Patient will contact the office with additional concerns. documented in this encounter [facility] 03-27-2024 Telephone encounter Note ED Outreach This documentation is being used for Transition of Care purposes: Yes/No: No ED Outreach Date: March 27, 2024 ED Outreach Method: COMMUNICATION METHOD: Telephone ED Outreach Attempt: second ED Outreach Outcome: Contacted Patient Name of ED Facility: [facility] Date of ED Discharge: 03/26/2024 Discharge Diagnosis: Nausea and vomiting, Fatty Liver ED Chief Complaint: vomiting Current Symptom Status: improving- spoke with patient's tire care manager, hipaa verified. He states that patient is doing well. No lingering nausea or vomiting. Denies other concerns. Medication Changes Reviewed: yes Medication Questions/Concerns: denies concerns at this time Follow-up PCP Scheduled: Declines Follow-up Specialist Scheduled:n/a Follow up Testing Scheduled: n/a Patient Contacted Office Prior to ED Visit: No. Patient made aware of on-call provider and same day appointment availability. Additional Comments: Patient will contact the office with additional concerns. [email or web address] Miscellaneous Notes On 03/19/2024, Emailed Shea (tail dogger) for Permanent SCS implant availability on 04/17/2024 2pm. Received confirmation today 03/24/2024 from isobutylene operator chief that pt is scheduled for that day Emailed insurance, isobutylene operator chief ad [employer] staff re: scheduled procedure Please proceed with insurance johanna Khoury/alex from [employer] have been notified Spoke with Dr Pritchett re: IV and oral antibiotic for permanent SCS implant. IV antibiotic for Cipro 400 mg prior to procedure. Oral levaquin 500 mg BID x5 days, #10; ok for once daily if pharmacy recommends. documented in this encounter [facility] 03-19-2024 Telephone encounter Note On 03/19/2024, Emailed Shea (tail dogger) for Permanent SCS implant availability on 04/17/2024 2pm. Received confirmation today 03/24/2024 from isobutylene operator chief that pt is scheduled for that day Emailed insurance, isobutylene operator chief ad [employer] staff re: scheduled procedure [facility] 03-19-2024 Telephone encounter Note Please proceed with insurance auth Iraida/alex from [employer] have been notified [facility] 03-19-2024 Telephone encounter Note Spoke with Dr Pritchett re: IV and oral antibiotic for permanent SCS implant. IV antibiotic for Cipro 400 mg prior to procedure. Oral levaquin 500 mg BID x5 days, #10; ok for once daily if pharmacy recommends. [facility] 03-12-2024 History of Present illness Narrative [facility] [address] [place] [address] Patient: Laxmi Torres Sex: male : 1975 Age: 48 y.o. PCP: JUSTIN UNDERWOOD MD 03/12/2024 Laxmi Torres is here for a(n) post procedure follow up SCS trial with 100% relief on 02/21/24. . Pain is currently 8/10 can increase to 10/10 depending on activity. Date of onset of pain: 2016 , pain has lasted greater than 3 months. Pain scale before treatment: 9/10 Pre-op pain score: 7/10 Post-op pain score: 0/10 2 hour post-op pain score: 0/10 4 hour post-op pain score: 0/10 Percentage of relief after and duration: 100% relief for the duration of trial Pain scale after treatment: 8/10 Chief Complaint Patient presents with Back Pain HPI: 09/23/20 Left L5S1 NRI 50% relief 11/03/21 Timoteo SI joint injections with 100% relief for 3 hours then slowly back to baseline next day. 03/03/2021 Bilat L1/2 5/1 Medial Branch Block w/ 90-100% relief for a couple days then 50% relief for 2 weeks. 04/14/21 Timoteo L1/2, 5/1 MBB w/ 100% relief 06/23/21 Lt L1/2, 5/1 RFA w/ 50% relief and 06/05/21 Rt L1/2, 5/1 RFA w/ 50% relief Bilateral SI joint injection on 09/29/2021 with 100% relief for 2 hours. Left SI joint radiofrequency ablation and 12/15/2021 Right SI radiofrequency ablation With 60% relief 09/28/2022 right and 10/12/2022 left L 1/2 L5/S1 Radiofrequency ablations with 50% relief x 2 weeks 12/14/2022 bilateral sacroiliac injections with 50% relief the day of procedure. right L 1/2 nerve root injection on 09/13/2023 with no relief. 02/21/24 SCS trial with 100% relief for duration of trial Back Pain This is a chronic (2016 (or before per caretaker grounds)) problem. The current episode started more than 1 year ago. The problem occurs constantly. The problem has been gradually worsening since onset. The pain is present in the sacro-iliac, lumbar spine and gluteal (right). The quality of the pain is described as stabbing, shooting, aching, burning and cramping. The pain radiates to the right thigh, right foot and right knee (posteriorly and anteriorly). Pain scale: 8/10 currently and can increase to 10/10 depending on activity. The pain is moderate. Worse during: worse with activity. The symptoms are aggravated by standing (sitting to standing transitions, ambulation, walking). Stiffness is present In the morning, all day and at night (intermittently). Associated symptoms include leg pain (RLE posterior and anterior), numbness (right foot) and tingling (right foot). Pertinent negatives include no bladder incontinence, bowel incontinence, chest pain, fever or weakness. Risk factors include lack of exercise, obesity and sedentary lifestyle (osteoarthritis). He has tried ice, heat, analgesics, home exercises, muscle relaxant, NSAIDs and walking (PT (06/2021-Jul 2022), HEP, ice/heat/rest, Tylenol, Gabapentin, Meloxicam daily; Muscle relaxers/Percocet in past, IcyHot. DANA L1/2 on 09/25/19 w/no relief. Back surg 12/2019 w/ mod relief. ., flexeril, lidocaine, toradol) for the symptoms. The treatment provided mild (Left L5, S1 NRI on 10/28/2020 w/100% relief of back & leg pain. ) relief. The effect of pain on patient's ADLS: Moderate Impairment. Past Medical History: Diagnosis Date Abnormal gait 07/02/2011 Acute pancreatitis 08/12/2020 Allergic rhinitis Anxiety Autism Back problem Bipolar I disorder [place] 01/17/2017 Chipped tooth upper molar chipped Chronic pain disorder Chronic sinusitis COVID-19 2019 Depression Developmental delay disorder Deviated nasal septum 07/30/2022 Diabetes mellitus, type 2 ([facility]) Disc displacement, lumbar 08/20/2019 DNS (deviated nasal septum) alcohol syndrome GERD (gastroesophageal reflux disease) Hemorrhoids without complication 08/12/2020 Hip pain, bilateral Hyperlipidemia Hypersomnia Hypertension Hypokalemia Impulse control disorder in adult Injury of back Intellectual functioning disability 07/02/2011 Leukopenia 03/04/2023 Low back pain Lumbar post-laminectomy syndrome 08/06/2011 Mild oppositional defiant disorder with angry or irritable mood Nasal congestion Nasal turbinate hypertrophy Neck pain Sierra's syndrome Obstructive sleep apnea syndrome 07/02/2011 Seizure disorder ([facility]) states in childhood, denies seizures as an adult Sleep apnea Smoker Spinal stenosis of lumbar region 08/2023 Tachycardia 08/12/2020 Past Surgical History: Procedure Laterality Date BACK SURGERY CHOLECYSTECTOMY INJECTION BLOCK EPIDURAL STEROID LUMBAR/SACRAL: left L 5,1 nroot Left 09/23/2020 Performed by Titus Pritchett MD at [facility] INJECTION BLOCK EPIDURAL STEROID LUMBAR/SACRAL: Left L 5/1 Nroot Left 10/28/2020 Performed by Titus Pritchett MD at [facility] INJECTION BLOCK NERVE MEDIAL BRANCH: bilat L 1/2 5/ Bilateral 04/14/2021 Performed by Titus Pritchett MD at [facility] INJECTION BLOCK NERVE MEDIAL BRANCH: bilat L /2 _ 11/19 Bilateral 03/03/2021 Performed by Titus Pritchett MD at [facility] INJECTION BLOCK SACROILIAC JOINT Bilateral 12/14/2022 Performed by Titus Pritchett MD at [facility] INJECTION BLOCK SACROILIAC JOINT Bilateral 11/03/2021 Performed by Titus Pritchett MD at [facility] INJECTION BLOCK SACROILIAC JOINT Bilateral 09/29/2021 Performed by Titus Pritchett MD at [facility] LUMBAR OR SACRAL EPIDURAL BLOCK WITH STEROIDS: L12 DANA N/A 09/25/2019 Performed by Titus Pritchett MD at [facility] LUMBAR OR SACRAL EPIDURAL BLOCK WITH STEROIDS: L12 DANA N/A 08/28/2019 Performed by Titus Pritchett MD at [facility] SPINE TRANSFORAMINAL: right L 1,2 Nroot Right 09/13/2023 Performed by Titus Pritchett MD at [facility] INSERTION STIMULATOR SPINAL CORD- TRIAL N/A 02/21/2024 Performed by Titus Pritchett MD at [facility] NECK SURGERY Fusion C4-7 OPEN FUNCTIONAL RHINOPLASTY SEPTOPLASTY NOSE WITH REPAIR OF TURBINATE FRACTURE N/A 03/11/2023 Performed by Marlee Vazquez DO at [facility] RADIOFREQUENCY ABLATION SPINAL: left L /2 _ 11/19 Left 10/12/2022 Performed by Titus Pritchett MD at [facility] RADIOFREQUENCY ABLATION SPINAL: left L /2 _11/19 Left 06/23/2021 Performed by Titus Pritchett MD at [facility] RADIOFREQUENCY ABLATION SPINAL: left SI Left 12/01/2021 Performed by Titus Pritchett MD at [facility] RADIOFREQUENCY ABLATION SPINAL: right L /2 _ 11/19 Right 09/28/2022 Performed by Titus Pritchett MD at [facility] RADIOFREQUENCY ABLATION SPINAL: right L 1/2 _5/ Right 06/05/2021 Performed by Titus Pritchett MD at [facility] RADIOFREQUENCY ABLATION SPINAL: right SI Right 12/15/2021 Performed by Titus Pritchett MD at [facility] REDUCTION TURBINATE Bilateral 03/11/2023 Performed by Marlee Vazquez DO at [facility] SURGERY Allergies Allergen Reactions Penicillins Hives Unknown reaction Sulfa (Sulfonamide Antibiotics) Unknown reraction Family History Problem Relation Age of Onset Sleep apnea Father Anesthesia problems Neg Hx Social History Socioeconomic History Marital status: Single Spouse name: Not on file Number of children: Not on file Years of education: Not on file Highest education level: Not on file Occupational History Not on file Tobacco Use Smoking status: Every Day Types: Vaping/E-cigarettes , Cigarettes Start date: 2022 Smokeless tobacco: Never Vaping Use Vaping status: Every Day Substances: Flavoring Substance and Sexual Activity Alcohol use: No Drug use: No Sexual activity: Defer Other Topics Concern Caffeine Use Yes Social History Narrative Not on file Social Determinants of Health Financial Resource Strain: Low Risk (05/08/2023) Overall Financial Resource Strain (CARDIA) Difficulty of Paying Living Expenses: Not hard at all Food Insecurity: No Food Insecurity (03/12/2024) Hunger Screening Food Insecurity - Worry: Never True Food Insecurity - Inability: Never True Transportation Needs: No Transportation Needs (05/08/2023) PRAPARE - Transportation Lack of Transportation (Medical): No Lack of Transportation (Non-Medical): No Physical Activity: Not on file Stress: Not on file Social Connections: Not on file Interpersonal Safety: Unknown (10/10/2023) [facility] Humiliation, Afraid, Rape, and Kick questionnaire Fear of Current or Ex-Partner: No Emotionally Abused: Not on file Physically Abused: Not on file Sexually Abused: Not on file Housing Instability: Low Risk (05/08/2023) Housing Instability Housing Instability: No Review of Systems Constitutional: Negative for fever. HENT: Negative. Negative for congestion and sore throat. Eyes: Negative. Respiratory: Negative. Negative for cough and shortness of breath. Cardiovascular: Negative for chest pain. Gastrointestinal: Negative for bowel incontinence, constipation and diarrhea. Endocrine: Negative. Genitourinary: Negative. Negative for bladder incontinence. Musculoskeletal: Positive for back pain. Skin: Negative. Allergic/Immunologic: Negative. Neurological: Positive for tingling (right foot) and numbness (right foot). Negative for weakness. Psychiatric/Behavioral: Negative for agitation. The patient is not nervous/anxious. Vital Signs: BP 122/86 (BP Site: Right Arm, BP Postition: Sitting) Pulse 104 Resp 18 Ht 177.8 cm (5' 10 ) Wt 103.4 kg (228 lb) SpO2 100% BMI 32.71 kg/m Physical Exam: GENERAL - Healthy patient that appears stated age. HEENT - Normocephalic / Atraumatic, Extraoccular movements intact, trachea midline, thyroid within normal limits. CV - pulse regular, Warm extremities with appropriate color of nailbeds. RESP - No obvious wheezing, No Shortness of Breath, No overexertion response to exam maneuvers. COORDINATION - remains intact. PSYCH - Alert and Oriented x4, Attentive and appropriate, constitutionally normal, displays normal mood and affect per situation, answered questions appropriately during examination, demonstrated appropriate attention during discussion, demonstrated appropriate cognitive reasoning and understanding of the medical condition by asking appropriate questions regarding the diagnosis and risks/benefits/alternatives of treatment modalities. No obvious deficits in memory, reasoning, or intellect. Lumbar: SKIN - No rashes or bruising in the area of the patient s pain. LYMPH NODES - demonstrate no obvious enlargement. EXTREMITIES - Lower extremities are warm, with minimal edema and palpable pulses. Tenderness to palpation noted in the lumbar spine and paraspinal musculature. Pain is elicited with flexion, extension, and lateral rotation of the lumbar spine. Range of motion is diminished with these motions due to pain. Facet palpation is noted to be somewhat tender and facet loading maneuvers are mildly positive, but not concordant with the patient s normal pain complaints. STRENGTH - noted to be 5 out of 5 all muscle groups bilateral lower extremities including muscles involving hip flexion and abduction, knee flexion and extension, as well as foot dorsiflexion and plantarflexion. No notable atrophy, fasciculations or spasm. SENSORY - No notable sensory deficits in the bilateral lower extremities to touch or pinprick in all dermatomal distributions. Straight Leg Raise is Positive on the Right Gait is normal. Assessment/Treatment Plan: Laxmi was seen today for back pain. Diagnoses and all orders for this visit: Postlaminectomy syndrome of lumbar region - Case request operating room: INSERTION STIMULATOR SPINAL CORD Spinal Cord Stimulator Placement (permanent) - under fluoroscopy It is hopeful that the described procedure will provide symptomatic pain relief. It is felt to be medically necessary noting that the patient has tried and failed more conservative modalities of therapy and this is the next most appropriate step. The procedure was described in detail to the patient as well as the potential benefits of pain reduction alongside risks of the procedure and alternatives. Risks were described as including, but not limited to bleeding, infection, nerve damage, spinal cord injury, paralysis, stroke, dural puncture headache, and medication reaction. The patient expressed understanding regarding the risks and benefits and wishes to proceed. The patient has now undergone an effective spinal cord stimulator trial and noted significant pain relief and improvements in activities of daily living. They have expressed interest in undergoing permanent implantation of a spinal cord stimulator complete with a rechargeable battery. Risks, benefits, alternatives, expected outcomes, and realistic expectations were reviewed with the patient. We also discussed the differences in percutaneous placement and surgical paddle lead placement of the permanent stimulator. The patient agrees with the plan outlined above and wishes to proceed. Follow up 2 weeks after procedure. DISCUSSION: Treatment options discussed with patient and all questions answered to patient's satisfaction. Discussed the rules and regulations surrounding prescription of opioids and compliance at length. Failure to follow the rules and regulation will result in tapering and discontinuation of medications if applicable. Prescribed medication that requires intensive monitoring for toxicity: We do not currently prescribe any controlled substance from this practice. Chronic conditions not treated during this visit that affected my overall medical decision making: Diabetes, Obesity Comorbidity- Diabetes The patient has a history of diabetes mellitus currently managed with medications. This will need to be considered prior to any procedure that would require the injection of steroid in that the patient may experience a transient increase in glucose as a result. Additional consideration will need to be given to timing the procedure early in the morning in that the patient will need to be fasting prior to the administration of anesthesia. Every effort will be made to perform the procedure as a 1st case due to this condition. And the patient will be instructed to hold their diabetic medications on that morning. If necessary, a blood glucose test can also be performed that morning. The risks/ benefits/ and alternatives will be weighed and explained to the patient prior to any procedure. Comorbidity- Obesity The patient does have a comorbid condition of obesity. This will be taken into account in that obesity will contribute to certain pain conditions. It can contribute to pain from degenerative disc disease as well as osteoarthritis of the joints. Many neuropathic symptoms are also amplified due to axial spine loading. Special benefits will also need to be given to procedures. Many procedures are technically more difficult in the light of severe obesity. I will also consider the possibility of undiagnosed obstructive sleep apnea (which often accompanies obesity) when prescribing any narcotic medications. I will weigh the risks and benefits and fully discuss them with the patient for these reasons. The spine model was demonstrated and MRI was reviewed and used to explain the condition. OARRS: Reviewed. Follow up 2 weeks after procedure. Scribe Statement: Scribed for and in the presence of BRUCE SERVIN by Ofelia Barrientos RN. Provider Statement: I, BRUCE SERVIN, personally performed the services described in the documentation, as scribed by Ofelia Barrientos RN in my presence, and it is both accurate and complete. Ofelia Barrientos RN 03/12/24 1432 BRUCE Servin 03/19/24 1220 documented in this encounter [employer] 03-12-2024 Instructions Ofelia Barrientos RN - 03/12/2024 1:30 PM EDT Permanent Spinal Cord Stimulation Placement Spinal cord stimulation is intended to help patients with chronic neck and/or back pain. It involves the use of mild electrical impulses to stimulate the nerves near the spinal cord. Spinal cord stimulation does not eliminate the source of pain; it simply interferes with the signals to the brain. The amount of pain relief using this method varies from person to person. An electrode (wire) is inserted close to an area near the nerves of your spinal cord. The electrodes are connected to a small generator implanted in your body. The generator will be programmed to send signals via the electrode(s) to the areas of your pain. Hopefully, this signal will help decrease your pain. What to Expect/Common Symptoms Pain relief is different from person to person. You may use your current pain medication to help with pain relief from the procedure, or if the stimulator is not controlling your pain. However, you should contact your [employer] sales representative [employer] to discuss that the stimulator is not working. You may experience discomfort at the electrode insertion site. Minimal bleeding and/or bruising is common at the insertion site. When you change position (lying to sitting, sitting to standing, moving in bed), you may feel changes in the intensity of the nerve stimulation. This is normal. Nothing is wrong with the spinal cord stimulator. It is trying to adjust to the movement of your body. Can I Resume Normal Activities? Avoid bending, overhead reaching, and twisting motions that can cause the electrode wires to move or break. Avoid strenuous exercise, including lifting anything over 10lbs. You may gradually return to normal activity level as directed by your doctor/provider. Wound Care Keep dressing clean and dry. Reinforce dressing with additional tape if it becomes loose. May remove dressing after 48 hours. Sponge bathing is allowed. No use a bathtub, pool, or Jacuzzi until your doctor says it is ok (usually about 7 days). When to Call the Doctor Signs and symptoms of infection: redness, swelling, foul odor and/or drainage at the insertion site. Fever of 100.5 degrees or greater. Significant bleeding from the surgical site. Uncontrolled pain. If you were sedated for the procedure: If you received sedation for the procedure, you may feel sleepy or not yourself for several hours today. For the next 24 hours avoid activities that require alertness or coordination. This includes: Driving or operating heavy machinery. Using power tools. Consuming alcohol. Make important, complex decisions or sign legal documents. Your stimulator may need to be reprogrammed if you are not getting pain relief. For questions or programming changes with the stimulator unit, call your spinal cord stimulator sales representative [employer] (you will be provided with contact information). Be sure to use this trial period to the fullest by using as many programs and settings as possible. documented in this encounter [employer] 03-09-2024 History of Present illness Narrative Images from the original note were not included. [address] [place] [id number] Subjective: Laxmi Torres is a 48 y.o. female who presents for a Medicare Annual Wellness exam. The following portions of the patient's history were reviewed and updated as appropriate: Health Risk Assessment, allergies, past medical history, past surgical history, social history, family history, and immunization history Lifestyle Assessment Do you smoke or use smokeless tobacco?: (!) Yes If you smoke or use smokeless tobacco, are you ready to quit?: (!) No Are you exposed to secondhand smoke?: (!) Yes On average, how many drinks of alcohol do you consume in a week?: None Do you exercise for 30 or more minutes on average at least 3 days a week?: (!) Never Do you have any tooth, denture, or oral problems?: No Do you snore or has anyone told you that you snore?: (!) Yes Do you try to eat a balanced diet?: (!) No Do you have difficulty performing any of these activities? (check all that apply): None Do you have difficulty performing any of these activities? (check all that apply): (!) Paying bills, Managing finances Fall Risk Fall Risk Assessment Completed?: Yes Have you fallen in the past year?: No How many times?: N/A Were you injured?: N/A Are you worried about falling?: (!) Yes Do you feel unsteady when standing or walking?: (!) Yes Risk Stratification: Moderate Risk Depression Screening Little interest or pleasure in doing things: (!) More than half the days Feeling down, depressed, or hopeless: Not at all Trouble falling or staying asleep, or sleeping too much: (!) Nearly every day Feeling tired or having little energy: (!) Nearly every day Poor appetite or overeating: Not at all Feeling bad about yourself - or that you are a failure or have let yourself or your family down: Not at all Trouble concentrating on things, such as reading the newspaper or watching television: Not at all Moving or speaking so slowly that other people could have noticed. Or the opposite - being so fidgety or restless that you have been moving around a lot more than usual: Not at all Thoughts that you would be better off , or of hurting yourself in some way: Not at all PEG Scale What number best describes your pain on average in the past week?: 5 What number best describes how, during the past week, pain has interfered with your enjoyment of life?: 5 What number best describes how, during the past week, pain has interfered with your general activity?: 5 PEG Pain Total Score: 5 Safety Assessment Do you have throw rugs on the floor?: No Do you feel safe at your home?: Yes Do you feel unsteady when walking?: (!) Yes Are you having difficulty with driving?: N/A Do you have trouble seeing?: No What assistive device do you use? (check all that apply): None Hearing Assessment Do you strain or struggle to hear/understand conversations?: No Do you have trouble hearing the television or radio when others do not?: No Does your family ever voice concerns about your hearing?: No Do you wear hearing aid/s?: No Personal Health During the past 4 weeks, how would you rate your overall health?: Good Do you understand how to take all of your medications?: (!) No How confident are you that you can control and manage most of your health problems?: (!) Somewhat confident In the past 12 months, how many times have you been hospitalized?: None End of Life Planning Do you have a living will?: (!) No Do you have a durable power of collections attorney?: (!) No Cognitive Screening Do you have trouble remembering or recalling facts or events?: No Do family members or caregivers report that you have difficulty remembering things?: No Vitals: Vitals: 03/09/24 1455 BP: 130/82 Pulse: 86 Temp: 36.4 C (97.6 F) SpO2: 99% Body mass index is 32.83 kg/m . History: Patient Active Problem List Diagnosis Date Noted Other chronic pain 12/26/2023 Type 2 diabetes mellitus without complication, without long-term current use of insulin ([facility]) 09/25/2023 Leukopenia 03/04/2023 Closed fracture of nasal septum 02/04/2023 Nasal congestion 02/04/2023 Hypertrophy of both inferior nasal turbinates 02/04/2023 Deviated nasal septum 07/30/2022 Chronic tonsillitis 07/30/2022 Other chronic sinusitis 07/30/2022 Disorder of sacrum 09/07/2021 Lumbosacral spondylosis without myelopathy 02/23/2021 Schizoaffective disorder, bipolar type ([facility]) 2020 Essential hypertension 08/12/2020 Hyperlipidemia 08/12/2020 Hemorrhoids without complication 08/12/2020 Nonspecific abnormal finding 08/12/2020 Hypersomnia 08/12/2020 Prolapsed cervical intervertebral disc 08/12/2020 Tachycardia 08/12/2020 Disc displacement, lumbar 08/20/2019 Sensorineural hearing loss (SNHL) of both ears 07/10/2019 Bipolar I disorder ([facility]) 01/17/2017 Allergic rhinitis 05/10/2014 Spinal stenosis of cervical region 11/30/2013 Neoplasm of uncertain behavior of skin 09/10/2012 Displacement of lumbar intervertebral disc without myelopathy 08/06/2011 Lumbar post-laminectomy syndrome 08/06/2011 Abnormal gait 07/02/2011 Abnormal glucose level 07/02/2011 Anxiety state 07/02/2011 Obstructive sleep apnea syndrome 07/02/2011 Seizure disorder ([facility]) 07/02/2011 Intellectual functioning disability 07/02/2011 Osteoarthritis 07/02/2011 Parkinson's disease ([facility]) 07/02/2011 Spinal stenosis of lumbar region 07/02/2011 Past Medical History: Diagnosis Date Abnormal gait 07/02/2011 Acute pancreatitis 08/12/2020 Allergic rhinitis Anxiety Autism Back problem Bipolar I disorder ([facility]) 01/17/2017 Chipped tooth upper molar chipped Chronic pain disorder Chronic sinusitis COVID-19 2019 Depression Developmental delay disorder Deviated nasal septum 07/30/2022 Diabetes mellitus, type 2 ([facility]) Disc displacement, lumbar 08/20/2019 DNS (deviated nasal septum) alcohol syndrome GERD (gastroesophageal reflux disease) Hemorrhoids without complication 08/12/2020 Hip pain, bilateral Hyperlipidemia Hypersomnia Hypertension Hypokalemia Impulse control disorder in adult Injury of back Intellectual functioning disability 07/02/2011 Leukopenia 03/04/2023 Low back pain Lumbar post-laminectomy syndrome 08/06/2011 Mild oppositional defiant disorder with angry or irritable mood Nasal congestion Nasal turbinate hypertrophy Neck pain Vienna's syndrome Obstructive sleep apnea syndrome 07/02/2011 Seizure disorder ([facility]) states in childhood, denies seizures as an adult Sleep apnea Smoker Spinal stenosis of lumbar region 08/2023 Tachycardia 08/12/2020 Past Surgical History: Procedure Laterality Date BACK SURGERY CHOLECYSTECTOMY INJECTION BLOCK EPIDURAL STEROID LUMBAR/SACRAL: left L 5,1 nroot Left 09/23/2020 Performed by Titus Pritchett MD at [facility] INJECTION BLOCK EPIDURAL STEROID LUMBAR/SACRAL: Left L 5/1 Nroot Left 10/28/2020 Performed by Titus Pritchett MD at [facility] INJECTION BLOCK NERVE MEDIAL BRANCH: bilat L 1/2 5/ Bilateral 04/14/2021 Performed by Titus Pritchett MD at [facility] INJECTION BLOCK NERVE MEDIAL BRANCH: bilat L /2 _ 11/19 Bilateral 03/03/2021 Performed by Titus Pritchett MD at [facility] INJECTION BLOCK SACROILIAC JOINT Bilateral 12/14/2022 Performed by Titus Pritchett MD at [facility] INJECTION BLOCK SACROILIAC JOINT Bilateral 11/03/2021 Performed by Titus Pritchett MD at [facility] INJECTION BLOCK SACROILIAC JOINT Bilateral 09/29/2021 Performed by Titus Pritchett MD at [facility] LUMBAR OR SACRAL EPIDURAL BLOCK WITH STEROIDS: L12 DANA N/A 09/25/2019 Performed by Titus Pritchett MD at [facility] LUMBAR OR SACRAL EPIDURAL BLOCK WITH STEROIDS: L12 DANA N/A 08/28/2019 Performed by Titus Pritchett MD at [facility] SPINE TRANSFORAMINAL: right L 1,2 Nroot Right 09/13/2023 Performed by Titus Pritchett MD at [facility] INSERTION STIMULATOR SPINAL CORD- TRIAL N/A 02/21/2024 Performed by Titus Pritchett MD at [facility] NECK SURGERY Fusion C4-7 OPEN FUNCTIONAL RHINOPLASTY SEPTOPLASTY NOSE WITH REPAIR OF TURBINATE FRACTURE N/A 03/11/2023 Performed by Marlee Vazquez DO at [facility] RADIOFREQUENCY ABLATION SPINAL: left L /2 _ 11/19 Left 10/12/2022 Performed by Titus Pritchett MD at [facility] RADIOFREQUENCY ABLATION SPINAL: left L /2 _11/19 Left 06/23/2021 Performed by Titus Pritchett MD at [facility] RADIOFREQUENCY ABLATION SPINAL: left SI Left 12/01/2021 Performed by Titus Pritchett MD at [facility] RADIOFREQUENCY ABLATION SPINAL: right L /2 _ 11/19 Right 09/28/2022 Performed by Titus Pritchett MD at [facility] RADIOFREQUENCY ABLATION SPINAL: right L 1/2 _5/ Right 06/05/2021 Performed by Titus Pritchett MD at [facility] RADIOFREQUENCY ABLATION SPINAL: right SI Right 12/15/2021 Performed by Titus Pritchett MD at [facility] REDUCTION TURBINATE Bilateral 03/11/2023 Performed by Marlee Vazquez DO at [facility] SURGERY Family History Problem Relation Age of Onset Sleep apnea Father Anesthesia problems Neg Hx Social History Tobacco Use Smoking status: Every Day Types: Vaping/E-cigarettes , Cigarettes Start date: 2022 Smokeless tobacco: Never Substance Use Topics Alcohol use: No Allergies: Allergies Allergen Reactions Penicillins Hives Unknown reaction Sulfa (Sulfonamide Antibiotics) Unknown reraction Current Outpatient Medications Medication Sig Dispense Refill acetaminophen (TYLENOL EXTRA STRENGTH) 500 mg tablet Take 1 tablet (500 mg total) by mouth every 6 (six) hours as needed for pain or headaches. 90 tablet 2 albuterol (PROVENTIL HFA;VENTOLIN HFA) 90 mcg/actuation inhaler Inhale 2 puffs every 6 (six) hours as needed for wheezing. 18 g 2 aspirin 81 mg Take 1 tablet (81 mg total) by mouth in the morning. Hold 1 week prior to surgery scheduled on 03/11/2023 per cardiology. 90 tablet 2 BD AUTOSHIELD DUO PEN NEEDLE 30 gauge x 3/16 needle benztropine (COGENTIN) 1 mg tablet Take 1 tablet (1 mg total) by mouth in the morning and 1 tablet (1 mg total) before bedtime. 180 tablet 3 bismuth subsalicylate (PEPTO BISMOL) 262 mg/15 mL suspension Take 15 mL by mouth every 6 (six) hours as needed for indigestion or heartburn. 360 mL 2 calcium carbonate (TUMS) 200 mg elemental (500 mg) chewable tablet Chew 1 tablet (200 mg total) and swallow in the morning. 90 tablet 3 cetirizine (ZyrTEC) 10 mg tablet Take 1 tablet (10 mg total) by mouth in the morning. 90 tablet 3 divalproex (DEPAKOTE) 500 mg EC tablet Take 1 tablet (500 mg total) by mouth in the morning and 1 tablet (500 mg total) before bedtime. 90 tablet 3 docusate sodium (COLACE) 100 mg capsule Take 1 capsule (100 mg total) by mouth daily as needed for constipation. fenofibrate (LOFIBRA) 54 mg tablet Take 1 tablet (54 mg total) by mouth in the morning. 30 tablet 5 fluticasone propionate (FLONASE) 50 mcg/actuation nasal spray Administer 2 sprays into each nostril in the morning. Indications: allergic conjunctivitis, inflammation of the nose due to an allergy. 15.8 mL 2 gabapentin (NEURONTIN) 600 mg tablet Take 1 tablet (600 mg total) by mouth 3 (three) times a day. 90 tablet 0 ketoconazole (NIZORAL) 2 % shampoo Apply 1 Application topically 2 (two) times a week. Apply to damp skin, lather, leave on 5 minutes, and rinse liraglutide (VICTOZA 3-NITESH) 0.6 mg/0.1 mL (18 mg/3 mL) pen injector Inject 0.3 mL (1.8 mg total) under the skin in the morning. 9 mL 3 metFORMIN XR (GLUCOPHAGE XR) 500 mg 24 hr tablet Take 1 tablet (500 mg total) by mouth in the morning and 1 tablet (500 mg total) before bedtime. 180 tablet 3 methocarbamoL (ROBAXIN) 500 mg tablet Take 1 tablet (500 mg total) by mouth as needed for muscle spasms. Unsure on dose 90 tablet 2 methylPREDNISolone (MEDROL, NITESH,) 4 mg tablet follow package directions 21 tablet 0 metoprolol succinate XL (TOPROL XL) 50 mg 24 hr tablet Take 1 tablet (50 mg total) by mouth in the morning. metoprolol tartrate (LOPRESSOR) 25 mg tablet Take 1 tablet 12 hours and 1 tablet 2 hours prior to the scheduled CT scan. Take additional 2 tablets with you to CT scan in case needed 4 tablet 0 montelukast (SINGULAIR) 10 mg tablet Take 1 tablet (10 mg total) by mouth nightly. 90 tablet 0 naproxen (NAPROSYN) 500 mg tablet Take 1 tablet (500 mg total) by mouth in the morning and 1 tablet (500 mg total) in the evening. Take with meals. 30 tablet 0 omeprazole (PriLOSEC) 20 mg capsule Take 1 capsule (20 mg total) by mouth 2 (two) times a day as needed (pain). 90 capsule 2 ondansetron ODT (ZOFRAN ODT) 4 mg disintegrating tablet Dissolve 1 tablet (4 mg total) on tongue 3 (three) times a day as needed for nausea for up to 3 doses. 3 tablet 0 paliperidone (INVEGA) 3 mg 24 hr tablet Take 1 tablet (3 mg total) by mouth nightly. 90 tablet 0 paliperidone (INVEGA) 3 mg 24 hr tablet Take 1 tablet (3 mg total) by mouth every morning. pen needle, diabetic (COMFORT EZ PEN NEEDLES) 32 gauge x 1/4 needle Use 1 needle daily with Victoza 100 each 1 QUEtiapine (SEROquel) 300 mg tablet Take 1 tablet (300 mg total) by mouth nightly. Takes with 25mg tablet 90 tablet 0 QUEtiapine (SEROquel) 50 mg tablet Take 1 tablet (50 mg total) by mouth nightly. 90 tablet 0 sertraline (ZOLOFT) 100 mg tablet Take 1 tablet (100 mg total) by mouth in the morning. 90 tablet 0 diphenhydrAMINE (BENADRYL) 25 mg capsule Take 1 capsule (25 mg total) by mouth every 6 (six) hours as needed for sleep (headache). 30 capsule 0 No current facility-administered medications for this visit. Immunization History Administered Date(s) Administered COVID-19, mRNA, LNP-S, PF, 100mcg/0.5mL Dose 08/04/2020, 09/01/2020, 06/23/2021 Hepatitis B 04/21/2017 Influenza High Dose Preservative Free IM 07/02/2016 Influenza, Injectable, quadrivalent (PF) 05/05/2019 Td (adult), 2 Lf tetanus toxoid, preservative free, adsorbed 08/09/2015 Cognitive Screening; Clock Drawing Test: Not Assessed Sensory Screening: No results found. Review of Systems: Review of Systems Respiratory: Negative for cough, chest tightness, shortness of breath and wheezing. Cardiovascular: Negative for chest pain and palpitations. Gastrointestinal: Negative for abdominal pain, nausea and vomiting. Genitourinary: Negative for difficulty urinating, dysuria and frequency. Neurological: Negative for seizures and syncope. All other systems reviewed and are negative. Objective: Physical Exam Vitals reviewed. Constitutional: General: He is not in acute distress. Appearance: Normal appearance. Eyes: Extraocular Movements: Extraocular movements intact. Pupils: Pupils are equal, round, and reactive to light. Cardiovascular: Rate and Rhythm: Normal rate and regular rhythm. Pulses: Normal pulses. Heart sounds: Normal heart sounds. Pulmonary: Effort: Pulmonary effort is normal. No respiratory distress. Breath sounds: Normal breath sounds. No wheezing or rhonchi. Abdominal: General: Bowel sounds are normal. There is no distension. Palpations: Abdomen is soft. There is no mass. Tenderness: There is no abdominal tenderness. There is no right CVA tenderness, left CVA tenderness or guarding. Musculoskeletal: Cervical back: Normal range of motion and neck supple. Neurological: Mental Status: He is alert and oriented to person, place, and time. Mental status is at baseline. Hospital Outpatient Visit on 02/21/2024 Component Date Value Ref Range Status Bedside glucose 02/21/2024 114 (H) 65 - 99 mg/dL Final Assessment/Plan: Laxmi Torres has been seen for a well visit today. Preventative recommendations were reviewed. Any chronic conditions that have been addressed include those listed below. CARE TEAM: -PCP -Sleep Medicine referral placed - previously had machine, stopped using due to dryness. Personalized Prevention Plan Services: Specialty Evaluation Advised:N/A Preventative Programs Recommended: N/A Prevention Counseling and Education Materials:Staying Healthy: Medicare's Preventive Services ([facility]) Diseases: Heart Health (EMELINA), Know the Facts about Heart Disease (CDC), and Tobacco Treatment Services ([facility]) Immunizations: Understanding how vaccines work (CDC) Nutrition: Healthy eating after 50 (EMELINA) and Common questions (EMELINA) Activity/Exercise/Safety/Misc: Road to Independent Driving ([facility]) The above recommendations were discussed with patient Laxmi was seen today for annual exam. Diagnoses and all orders for this visit: MARK (obstructive sleep apnea) - Ambulatory referral to [facility] Sleep Medicine; Future Primary cough headache - diphenhydrAMINE (BENADRYL) 25 mg capsule; Take 1 capsule (25 mg total) by mouth every 6 (six) hours as needed for sleep (headache). Episodic tension-type headache, not intractable Tobacco use There are no Patient Instructions on file for this visit. JUSTIN UNDERWOOD MD 03/09/24 documented in this encounter [facility] 01-24-2024 History of Present illness Narrative Marco, patient's caregiver, has requested for patient's Albuterol inhaler to be refilled. Please sign if appropriate. Thanks, Bonny Santo RN documented in this encounter [facility] 01-24-2024 History of Present illness Narrative When was the last Refill? 08/15/2023 Is this medication Historical? [place] of preferred Pharmacy? [facility] in [place], [place] When was the last OV with provider? 12/25/2023 When is the next scheduled visit? 03/09/2024 documented in this encounter [facility] 01-02-2024 History of Present illness Narrative [facility] [address] [place] [address] Patient: Laxmi Torres Sex: male : 1975 Age: 48 y.o. PCP: JUSTIN UNDERWOOD MD 01/02/2024 Laxmi Torres is here for a(n) follow up to review psych evaluation for spinal cord stimulator trial. Chief Complaint Patient presents with Back Pain HPI: 09/23/20 Left L5S1 NRI 50% relief 11/03/21 Timoteo SI joint injections with 100% relief for 3 hours then slowly back to baseline next day. 03/03/2021 Bilat L1/2 5/1 Medial Branch Block w/ 90-100% relief for a couple days then 50% relief for 2 weeks. 04/14/21 Timoteo L1/2, 5/1 MBB w/ 100% relief 06/23/21 Lt L1/2, 5/1 RFA w/ 50% relief and 06/05/21 Rt L1/2, 5/1 RFA w/ 50% relief Bilateral SI joint injection on 09/29/2021 with 100% relief for 2 hours. Left SI joint radiofrequency ablation and 12/15/2021 Right SI radiofrequency ablation With 60% relief 09/28/2022 right and 10/12/2022 left L 1/2 L5/S1 Radiofrequency ablations with 50% relief x 2 weeks 12/14/2022 bilateral sacroiliac injections with 50% relief the day of procedure. right L 1/2 nerve root injection on 09/13/2023 with no relief. Back Pain This is a chronic (2016 (or before per caretaker grounds)) problem. The current episode started more than 1 year ago. The problem occurs constantly. The problem is unchanged. The pain is present in the sacro-iliac, lumbar spine and gluteal (right). The quality of the pain is described as stabbing, shooting, aching, burning and cramping. The pain radiates to the right thigh, right foot and right knee. The pain is at a severity of 8/10 (pain increases with activity especially ambulation and standing and vacuuming). The pain is severe. Worse during: worse with activity. The symptoms are aggravated by standing (sitting to standing transitions, ambulation, walking). Stiffness is present In the morning, all day and at night. Associated symptoms include leg pain (RLE posterior), numbness (right foot) and tingling (right foot). Pertinent negatives include no bladder incontinence, bowel incontinence, chest pain, fever or weakness. Risk factors include lack of exercise, obesity and sedentary lifestyle (osteoarthritis). He has tried ice, heat, analgesics, home exercises, muscle relaxant, NSAIDs and walking (PT (06/2021-Jul 2022), HEP, ice/heat/rest, Tylenol, Gabapentin, Meloxicam daily; Muscle relaxers/Percocet in past, IcyHot. DANA L1/2 on 09/25/19 w/no relief. Back surg 12/2019 w/ mod relief. ., flexeril, lidocaine, toradol) for the symptoms. The treatment provided mild (Left L5, S1 NRI on 10/28/2020 w/100% relief of back & leg pain. ) relief. The effect of pain on patient's ADLS: Moderate Impairment. Past Medical History: Diagnosis Date Abnormal gait 07/02/2011 Acute pancreatitis 08/12/2020 Allergic rhinitis Anxiety Autism Back problem Bipolar I disorder ([facility]) 01/17/2017 Chipped tooth upper molar chipped Chronic pain disorder Chronic sinusitis COVID-2019 Depression Developmental delay disorder Deviated nasal septum 07/30/2022 Diabetes mellitus, type 2 ([facility]) Disc displacement, lumbar 08/20/2019 DNS (deviated nasal septum) alcohol syndrome GERD (gastroesophageal reflux disease) Hemorrhoids without complication 08/12/2020 Hip pain, bilateral Hyperlipidemia Hypersomnia Hypertension Hypokalemia Impulse control disorder in adult Injury of back Intellectual functioning disability 07/02/2011 Leukopenia 03/04/2023 Low back pain Lumbar post-laminectomy syndrome 08/06/2011 Mild oppositional defiant disorder with angry or irritable mood Nasal congestion Nasal turbinate hypertrophy Neck pain Vienna's syndrome Obstructive sleep apnea syndrome 07/02/2011 Seizure disorder ([facility]) states in childhood, denies seizures as an adult Sleep apnea Smoker Spinal stenosis of lumbar region 08/2023 Tachycardia 08/12/2020 Past Surgical History: Procedure Laterality Date BACK SURGERY CHOLECYSTECTOMY INJECTION BLOCK EPIDURAL STEROID LUMBAR/SACRAL: left L 5,1 nroot Left 09/23/2020 Performed by Titus Pritchett MD at [facility] PAIN INJECTION BLOCK EPIDURAL STEROID LUMBAR/SACRAL: Left L 5/1 Nroot Left 10/28/2020 Performed by Titus Pritchett MD at [facility] INJECTION BLOCK NERVE MEDIAL BRANCH: bilat L 1/2 11/19 Bilateral 04/14/2021 Performed by Titus Pritchett MD at [facility] PAIN INJECTION BLOCK NERVE MEDIAL BRANCH: bilat L 1/2 _ 11/19 Bilateral 03/03/2021 Performed by Titus Pritchett MD at [facility] INJECTION BLOCK SACROILIAC JOINT Bilateral 12/14/2022 Performed by Titus Pritchett MD at [facility] PA[facility] INJECTION BLOCK SACROILIAC JOINT Bilateral 11/03/2021 Performed by Titus Pritchett MD at [facility] PAIN INJECTION BLOCK SACROILIAC JOINT Bilateral 09/29/2021 Performed by Titus Pritchett MD at [facility] INJECTION LUMBAR OR SACRAL EPIDURAL BLOCK WITH STEROIDS: L12 DANA N/A 09/25/2019 Performed by Titus Pritchett MD at [facility] INJECTION LUMBAR OR SACRAL EPIDURAL BLOCK WITH STEROIDS: L12 DANA N/A 08/28/2019 Performed by Titus Pritchett MD at [facility] INJECTION SPINE TRANSFORAMINAL: right L 1,2 Nroot Right 09/13/2023 Performed by Titus Pritchett MD at [facility] NECK SURGERY Fusion C4-7 OPEN FUNCTIONAL RHINOPLASTY SEPTOPLASTY NOSE WITH REPAIR OF TURBINATE FRACTURE N/A 03/11/2023 Performed by Marlee Vazquez DO at [facility] RADIOFREQUENCY ABLATION SPINAL: left L 07/23 _ 11/19 Left 10/12/2022 Performed by Titus Pritchett MD at [facility] RADIOFREQUENCY ABLATION SPINAL: left L 07/23 _11/19 Left 06/23/2021 Performed by Titus Pritchett MD at [facility] RADIOFREQUENCY ABLATION SPINAL: left SI Left 12/01/2021 Performed by Titus Pritchett MD at [facility] RADIOFREQUENCY ABLATION SPINAL: right L 07/23 _ 11/19 Right 09/28/2022 Performed by Titus Pritchett MD at [facility] RADIOFREQUENCY ABLATION SPINAL: right L 07/23 _11/19 Right 06/05/2021 Performed by Titus Pritchett MD at [facility] RADIOFREQUENCY ABLATION SPINAL: right SI Right 12/15/2021 Performed by Titus Pritchett MD at [facility] REDUCTION TURBINATE Bilateral 03/11/2023 Performed by Marlee Vazquez DO at [facility] Allergies Allergen Reactions Penicillins Hives Unknown reaction Sulfa (Sulfonamide Antibiotics) Unknown reraction Family History Problem Relation Age of Onset Sleep apnea Father Anesthesia problems Neg Hx Social History Socioeconomic History Marital status: Single Spouse name: Not on file Number of children: Not on file Years of education: Not on file Highest education level: Not on file Occupational History Not on file Tobacco Use Smoking status: Every Day Types: Vaping/E-cigarettes , Cigarettes Start date: 2022 Smokeless tobacco: Never Vaping Use Vaping status: Every Day Substances: Flavoring Substance and Sexual Activity Alcohol use: No Drug use: No Sexual activity: Defer Other Topics Concern Caffeine Use Yes Social History Narrative Not on file Social Determinants of Health Financial Resource Strain: Low Risk (05/08/2023) Overall Financial Resource Strain (CARDIA) Difficulty of Paying Living Expenses: Not hard at all Food Insecurity: No Food Insecurity (01/02/2024) Hunger Screening Food Insecurity - Worry: Never True Food Insecurity - Inability: Never True Transportation Needs: No Transportation Needs (05/08/2023) PRAPARE - Transportation Lack of Transportation (Medical): No Lack of Transportation (Non-Medical): No Physical Activity: Not on file Stress: Not on file Social Connections: Not on file Interpersonal Safety: Unknown (10/10/2023) [facility] Humiliation, Afraid, Rape, and Kick questionnaire Fear of Current or Ex-Partner: No Emotionally Abused: Not on file Physically Abused: Not on file Sexually Abused: Not on file Housing Instability: Low Risk (05/08/2023) Housing Instability Housing Instability: No Review of Systems Constitutional: Negative for fever. HENT: Negative. Respiratory: Negative. Cardiovascular: Negative for chest pain. Gastrointestinal: Negative for bowel incontinence, constipation and diarrhea. Genitourinary: Negative. Negative for bladder incontinence. Musculoskeletal: Positive for back pain. Skin: Negative. Neurological: Positive for tingling (right foot) and numbness (right foot). Negative for weakness. Psychiatric/Behavioral: Negative for agitation. The patient is not nervous/anxious. Vital Signs: BP 118/86 Pulse 105 Resp 14 Ht 177.8 cm (5' 10 ) Wt 105.7 kg (233 lb) SpO2 97% BMI 33.43 kg/m Physical Exam: GENERAL - Healthy patient that appears stated age. HEENT - Normocephalic / Atraumatic, Extraoccular movements intact, trachea midline, thyroid within normal limits. CV - pulse regular, Warm extremities with appropriate color of nailbeds. RESP - No obvious wheezing, No Shortness of Breath, No overexertion response to exam maneuvers. COORDINATION - remains intact. PSYCH - Alert and Oriented x4, Attentive and appropriate, constitutionally normal, displays normal mood and affect per situation, answered questions appropriately during examination, demonstrated appropriate attention during discussion, demonstrated appropriate cognitive reasoning and understanding of the medical condition by asking appropriate questions regarding the diagnosis and risks/benefits/alternatives of treatment modalities. No obvious deficits in memory, reasoning, or intellect. Lumbar: SKIN - No rashes or bruising in the area of the patient s pain. LYMPH NODES - demonstrate no obvious enlargement. EXTREMITIES - Lower extremities are warm, with minimal edema and palpable pulses. Tenderness to palpation noted in the lumbar spine and paraspinal musculature. Pain is elicited with flexion, extension, and lateral rotation of the lumbar spine. Range of motion is diminished with these motions due to pain. Facet palpation is noted to be somewhat tender and facet loading maneuvers are mildly positive, but not concordant with the patient s normal pain complaints. STRENGTH - noted to be 5 out of 5 all muscle groups bilateral lower extremities including muscles involving hip flexion and abduction, knee flexion and extension, as well as foot dorsiflexion and plantarflexion. No notable atrophy, fasciculations or spasm. SENSORY - No notable sensory deficits in the bilateral lower extremities to touch or pinprick in all dermatomal distributions. Straight Leg Raise is Positive on the Right Gait is antalgic. Assessment/Treatment Plan: Laxmi was seen today for back pain. Diagnoses and all orders for this visit: Lumbar post-laminectomy syndrome - Case request operating room: INSERTION STIMULATOR SPINAL CORD-TRIAL Spinal Cord Stimulator Placement (trial) - under fluoroscopy It is hopeful that the described procedure will provide symptomatic pain relief. It is felt to be medically necessary noting that the patient has tried and failed more conservative modalities of therapy and this is the next most appropriate step. The procedure was described in detail to the patient as well as the potential benefits of pain reduction alongside risks of the procedure and alternatives. Risks were described as including, but not limited to bleeding, infection, nerve damage, spinal cord injury, paralysis, stroke, dural puncture headache, and medication reaction. The patient expressed understanding regarding the risks and benefits and wishes to proceed. The purpose of a spinal cord stimulator trial is to determine if the patient would be an appropriate candidate for permanent implantation of a spinal cord stimulator. During the trial phase, the patient will have temporary leads placed in the epidural space and exiting the skin under a sterile dressing. They will be taught by the stimulator sales representative [employer] how to use a handheld controller to try multiple programs to attempt to reduce their normal pain. During the trial, it is important to note if the stimulation covers the painful area, if the stimulation blocks the pain sensation, and if the stimulation is comfortable and tolerable to the patient. If these criteria are met and the patient notices an overall improvement in their pain and activities of daily living, they may be a candidate for permanent implant. Follow up 1 weeks after procedure The medications I have prescribed have been reviewed for medication interactions/contraindications and/or for upcoming procedures: continue current medication regimen without any changes. DISCUSSION: Treatment options discussed with patient and all questions answered to patient's satisfaction. Discussed the rules and regulations surrounding prescription of opioids and compliance at length. Failure to follow the rules and regulation will result in tapering and discontinuation of medications if applicable. Prescribed medication that requires intensive monitoring for toxicity We do not currently prescribe any controlled substance from this practice. Treatment plans discussed but not opted for at this time: Permanent SCS implant. Patient would like to proceed with the current outlined treatment plan before moving forward with any other options. The spine model was demonstrated and MRI was reviewed and used to explain the condition. Chronic conditions not treated during this visit that affected my overall medical decision making: Comorbidity- Obesity The patient does have a comorbid condition of obesity. This will be taken into account in that obesity will contribute to certain pain conditions. It can contribute to pain from degenerative disc disease as well as osteoarthritis of the joints. Many neuropathic symptoms are also amplified due to axial spine loading. Special benefits will also need to be given to procedures. Many procedures are technically more difficult in the light of severe obesity. I will also consider the possibility of undiagnosed obstructive sleep apnea (which often accompanies obesity) when prescribing any narcotic medications. I will weigh the risks and benefits and fully discuss them with the patient for these reasons. Comorbidity- Diabetes The patient has a history of diabetes mellitus currently managed with medications. This will need to be considered prior to any procedure that would require the injection of steroid in that the patient may experience a transient increase in glucose as a result. Additional consideration will need to be given to timing the procedure early in the morning in that the patient will need to be fasting prior to the administration of anesthesia. Every effort will be made to perform the procedure as a 1st case due to this condition. And the patient will be instructed to hold their diabetic medications on that morning. If necessary, a blood glucose test can also be performed that morning. The risks/ benefits/ and alternatives will be weighed and explained to the patient prior to any procedure. OARRS: Reviewed. Scribe Statement: Scribed for and in the presence of BRUCE SERVIN by Abril Durán CNA. Provider Statement: I, BRUCE SERVNI, personally performed the services described in the documentation, as scribed by Abril Durán CNA in my presence, and it is both accurate and complete. Abril Durán CNA 01/02/24 1230 BRUCE Servin 01/02/24 [id number] documented in this encounter [facility] 01-02-2024 Instructions Abril Durán CNA - 01/02/2024 11:15 AM EDT Spinal Cord Stimulation (Trial) Spinal cord stimulation is intended to help patients with chronic neck and/or back pain. It involves the use of mild electrical impulses to stimulate the nerves near the spinal cord. Spinal cord stimulation does not eliminate the source of pain; it simply interferes with the signals to the brain. The amount of pain relief using this method varies from person to person. Before you undergo permanent placement of a spinal cord stimulator (SCS), an electrode (wire) is inserted close to an area near the nerves of your spinal cord. The electrode is placed as a test/trial to determine whether spinal cord stimulation will help relieve your pain. The electrodes are connected to a small generator outside of your body. The generator will be programmed to send signals via the electrode(s) to the areas of your pain. Hopefully, this signal will help decrease your pain. This trial will last approximately one week. You will return in 5-7 days after the procedure to remove the electrode(s) and to discuss the results of the trial with your doctor/provider. What to Expect/Common Symptoms Pain relief is different from person to person. You may use your current pain medication to help with pain relief from the procedure, or if the stimulator is not controlling your pain. However, you should contact your SCS sales representative [employer] to discuss that the stimulator is not working. You may experience discomfort at the electrode insertion site. Minimal bleeding and/or bruising is common at the insertion site. When you change position (lying to sitting, sitting to standing, moving in bed), you may feel changes in the intensity of the nerve stimulation. This is normal. Nothing is wrong with the spinal cord stimulator. It is trying to adjust to the movement of your body. Can I Resume Normal Activities? Avoid bending, overhead reaching, and twisting motions that can cause the electrode wires to move or break. Avoid strenuous exercise, including lifting anything over 10lbs. You may gradually return to normal activity level as directed by your doctor/provider. Wound Care Keep dressing clean and dry. Reinforce dressing with additional tape if it becomes loose. DO NOT remove any bandages until the trial is over. Sponge bathing is allowed. Do not shower or use a bathtub, pool, or Jacuzzi until your doctor says it is ok (usually after your first clinic visit after the procedure). When to Call the Doctor Signs and symptoms of infection: redness, swelling, foul odor and/or drainage at the insertion site. Fever of 100.5 degrees or greater. Significant bleeding from the surgical site. Uncontrolled pain. If you were sedated for the procedure: If you received sedation for the procedure, you may feel sleepy or not yourself for several hours today. For the next 24 hours avoid activities that require alertness or coordination. This includes: Driving or operating heavy machinery. Using power tools. Consuming alcohol. Make important, complex decisions or sign legal documents. Your stimulator may need to be reprogrammed if you are not getting pain relief. For questions or programming changes with the stimulator unit, call your spinal cord stimulator sales representative [employer] (you will be provided with contact information). Be sure to use this trial period to the fullest by using as many programs and settings as possible. documented in this encounter [facility] 12-25-2023 History of Present illness Narrative Images from the original note were not included. [address] [place] [id number] Patient: Laxmi Torres Date of : 1975 Encounter Date: 12/25/2023 SUBJECTIVE: Chief Complaint: No chief complaint on file. Patient ID: Laxmi Torres is a 48 y.o. male. Assisted living home resident here today to review metabolic labs are completed. Patient has notable hypertriglyceridemia as well as hypercholesterolemia Currently on simvastatin. Overall has a balanced diet but does consume whatever is using excessive unavailable which results in high carb intake and high fat foods or fast foods. Multiple other questions for medication modifications orders that are required. The following portions of the patient's history were reviewed and updated as appropriate: allergies, current medications, past family history, past medical history, past social history, past surgical history and problem list. PHYSICAL EXAMINATION: Physical Exam Constitutional: Appearance: She is well-developed. She is not ill-appearing. HENT: Head: Normocephalic and atraumatic. Nose: Nose normal. Eyes: General: No scleral icterus. Extraocular Movements: Extraocular movements intact. Pupils: Pupils are equal, round, and reactive to light. Musculoskeletal: Cervical back: Normal range of motion. Neurological: Mental Status: She is alert and oriented to person, place, and time. Psychiatric: Mood and Affect: Mood normal. Behavior: Behavior normal. Thought Content: Thought content normal. Judgment: Judgment normal. ASSESSMENT/PLAN: Diagnoses and all orders for this visit: Hypertriglyceridemia - fenofibrate (LOFIBRA) 54 mg tablet; Take 1 tablet (54 mg total) by mouth in the morning. Hypercholesteremia -Continue Simvastatin Blood sugars: -Notify physician if Blood sugar run less then 60, more than 210 Blood Pressure: -Notify provider if Blood pressure if less then 90 systolic or 60 diastolic MED CHANGES: -DC Valeria DM -DC melatonin qhs -Modify Naproxen 500mg 1 tab BID PRN for Back Pain Video Visit via Real-time Synchronous Audiovisual Provider Location: [facility] [address] [place] [phone] Patient Location: Patient's home Video Visit Consent Statement: I discussed risks, benefits, and alternatives of a real-time synchronous audiovisual consultation with the patient (and any accompanying persons) including the risks that the patient's personal health details and medical records will be discussed over real-time, synchronous, interactive video/audio/telecommunication technology, the visit will not be recorded without the express consent of both the provider and the patient, and that there are some limitations compared to [id number] evaluations. The patient consented to the presence of additional virtual and/or in-person participants. We elected to proceed. JUSTIN UNDERWOOD MD Family Medicine Physician [facility] 12/25/23 This note was completed with voice recognition software. The document was reviewed for errors however some may still be present. Please do not hesitate to contact/[facility] the author to verify any questions/concerns. documented in this encounter [facility] 12-25-2023 Instructions Justin Underwood MD - 12/25/2023 8:00 AM EDT Diagnoses and all orders for this visit: Hypertriglyceridemia - fenofibrate (LOFIBRA) 54 mg tablet; Take 1 tablet (54 mg total) by mouth in the morning. Hypercholesteremia -Continue Simvastatin Blood sugars: -Notify physician if Blood sugar run less then 60, more than 210 Blood Pressure: -Notify provider if Blood pressure if less then 90 systolic or 60 diastolic OTHER MED CHANGES: -DC Valeria DM -DC melatonin qhs -Modify Naproxen 500mg 1 tab BID PRN for Back Pain documented in this encounter [facility] 11-27-2023 Miscellaneous Notes Pt.s children's zoo caretaker Marco called in requesting we send a referral for spinal cord stimulator to [facility] next door. Pt was originally going to his personal Therapist however Dr. Cherry is booked out 7 months. Pt would like to get in and seen as soon as possible. When calling to schedule they should call Marco [phone] Thank you A referral was faxed to [facility] and confirmation was received documented in this encounter [facility] 11-27-2023 Telephone encounter Note Pt.s children's zoo caretaker Marco called in requesting we send a referral for spinal cord stimulator to [facility] next door. Pt was originally going to his personal Therapist however Dr. Cherry is booked out 7 months. Pt would like to get in and seen as soon as possible. When calling to schedule they should call Marco Everett [phone] Thank you [facility] 11-27-2023 Telephone encounter Note A referral was faxed to [facility] and confirmation was received [facility] 10-29-2023 History of Present illness Narrative [facility] [address] [place] [address] Patient: Laxmi Torres Sex: male : 1975 Age: 47 y.o. PCP: JUSTIN UNDERWOOD MD 10/29/2023 Laxmi Torres is here for a(n) follow up after seeing Neurosurgery at [facility]. Patient reports he was told he is not a surgical candidate at this time but did recommend SCS trila and placement. Patient reports he has viewed the educational DVD and would like to proceed. Chief Complaint Patient presents with Back Pain HPI: 09/23/20 Left L5S1 NRI 50% relief 11/03/21 Tim[place]o SI joint injections with 100% relief for 3 hours then slowly back to baseline next day. 03/03/2021 Bilat L1/2 5/1 Medial Branch Block w/ 90-100% relief for a couple days then 50% relief for 2 weeks. 04/14/21 Tim[place]o L1/2, 5/1 MBB w/ 100% relief 06/23/21 Lt L1/2, 5/1 RFA w/ 50% relief and 06/05/21 Rt L1/2, 5/1 RFA w/ 50% relief Bilateral SI joint injection on 09/29/2021 with 100% relief for 2 hours. Left SI joint radiofrequency ablation and 12/15/2021 Right SI radiofrequency ablation With 60% relief 09/28/2022 right and 10/12/2022 left L 1/2 L5/S1 Radiofrequency ablations with 50% relief x 2 weeks 12/14/2022 bilateral sacroiliac injections with 50% relief the day of procedure. right L 1/2 nerve root injection on 09/13/2023 with no relief. Back Pain This is a chronic (2016 (or before per caretaker grounds)) problem. The current episode started more than 1 year ago. The problem occurs constantly. The problem has been gradually worsening since onset. The pain is present in the sacro-iliac, lumbar spine and gluteal (right). The quality of the pain is described as stabbing, shooting, aching, burning and cramping. The pain radiates to the right thigh, right foot and right knee. The pain is at a severity of 7/10 (pain increases with activity especially ambulation and standing and vacuuming ). The pain is moderate. Worse during: worse at various times throughout day. The symptoms are aggravated by standing (sitting to standing transitions, ambulation, walking). Stiffness is present In the morning, all day and at night. Associated symptoms include leg pain (RLE), numbness (right foot) and tingling (right foot). Pertinent negatives include no bladder incontinence, bowel incontinence, chest pain, fever or weakness. Risk factors include lack of exercise, obesity and sedentary lifestyle (osteoarthritis). He has tried ice, heat, analgesics, home exercises, muscle relaxant, NSAIDs and walking (PT (06/2021-Jul 2022), HEP, ice/heat/rest, Tylenol, Gabapentin, Meloxicam daily; Muscle relaxers/Percocet in past, IcyHot. DANA L1/2 on 09/25/19 w/no relief. Back surg 12/2019 w/ mod relief. ., flexeril, lidocaine, toradol) for the symptoms. The treatment provided mild (Left L5, S1 NRI on 10/28/2020 w/100% relief of back & leg pain. ) relief. The effect of pain on patient's ADLS: Moderate Impairment. Past Medical History: Diagnosis Date Abnormal gait 07/02/2011 Acute pancreatitis 08/12/2020 Allergic rhinitis Anxiety Autism Back problem Bipolar I disorder ([facility]) 01/17/2017 Chipped tooth upper molar chipped Chronic pain disorder Chronic sinusitis COVID-2019 Depression Developmental delay disorder Deviated nasal septum 07/30/2022 Diabetes mellitus, type 2 ([facility]) Disc displacement, lumbar 08/20/2019 DNS (deviated nasal septum) alcohol syndrome GERD (gastroesophageal reflux disease) Hemorrhoids without complication 08/12/2020 Hip pain, bilateral Hyperlipidemia Hypersomnia Hypertension Hypokalemia Impulse control disorder in adult Injury of back Intellectual functioning disability 07/02/2011 Leukopenia 03/04/2023 Low back pain Lumbar post-laminectomy syndrome 08/06/2011 Mild oppositional defiant disorder with angry or irritable mood Nasal congestion Nasal turbinate hypertrophy Neck pain Sierra's syndrome Obstructive sleep apnea syndrome 07/02/2011 Seizure disorder (CMS-HCC) states in childhood, denies seizures as an adult Sleep apnea Smoker Spinal stenosis of lumbar region 08/2023 Tachycardia 08/12/2020 Past Surgical History: Procedure Laterality Date BACK SURGERY CHOLECYSTECTOMY INJECTION BLOCK EPIDURAL STEROID LUMBAR/SACRAL: left L 5,1 nroot Left 09/23/2020 Performed by Titus Pritchett MD at [facility] INJECTION BLOCK EPIDURAL STEROID LUMBAR/SACRAL: Left L 5/1 Nroot Left 10/28/2020 Performed by Titus Pritchett MD at [facility] INJECTION BLOCK NERVE MEDIAL BRANCH: bilat L 1/2 / Bilateral 04/14/2021 Performed by Titus Pritchett MD at [facility] INJECTION BLOCK NERVE MEDIAL BRANCH: bilat L /2 _ 11/19 Bilateral 03/03/2021 Performed by Titus Pritchett MD at [facility] INJECTION BLOCK SACROILIAC JOINT Bilateral 12/14/2022 Performed by Titus Pritchett MD at [facility] INJECTION BLOCK SACROILIAC JOINT Bilateral 11/03/2021 Performed by Titus Pritchett MD at [facility] INJECTION BLOCK SACROILIAC JOINT Bilateral 09/29/2021 Performed by Titus Pritchett MD at [facility] LUMBAR OR SACRAL EPIDURAL BLOCK WITH STEROIDS: L12 DANA N/A 09/25/2019 Performed by Titus Pritchett MD at [facility] LUMBAR OR SACRAL EPIDURAL BLOCK WITH STEROIDS: L12 DANA N/A 08/28/2019 Performed by Titus Pritchett MD at [facility] INJECTION SPINE TRANSFORAMINAL: right L 1,2 Nroot Right 09/13/2023 Performed by Titus Pritchett MD at [facility] NECK SURGERY Fusion C4-7 OPEN FUNCTIONAL RHINOPLASTY SEPTOPLASTY NOSE WITH REPAIR OF TURBINATE FRACTURE N/A 03/11/2023 Performed by Marlee Vazquez DO at [facility] RADIOFREQUENCY ABLATION SPINAL: left L 1/2 _ 11/19 Left 10/12/2022 Performed by Titus Pritchett MD at [facility] RADIOFREQUENCY ABLATION SPINAL: left L 1/2 _11/19 Left 06/23/2021 Performed by Titus Pritchett MD at [facility] RADIOFREQUENCY ABLATION SPINAL: left SI Left 12/01/2021 Performed by Titus Pritchett MD at [facility] RADIOFREQUENCY ABLATION SPINAL: right L 07/23 _ 11/19 Right 09/28/2022 Performed by Titus Pritchett MD at [facility] RADIOFREQUENCY ABLATION SPINAL: right L / _11/19 Right 06/05/2021 Performed by Titus Pritchett MD at [facility] RADIOFREQUENCY ABLATION SPINAL: right SI Right 12/15/2021 Performed by Titus Pritchett MD at [facility] REDUCTION TURBINATE Bilateral 03/11/2023 Performed by Marlee Vazquez DO at [facility] Allergies Allergen Reactions Penicillins Hives Unknown reaction Sulfa (Sulfonamide Antibiotics) Unknown reraction Family History Problem Relation Age of Onset Sleep apnea Father Anesthesia problems Neg Hx Social History Socioeconomic History Marital status: Single Spouse name: Not on file Number of children: Not on file Years of education: Not on file Highest education level: Not on file Occupational History Not on file Tobacco Use Smoking status: Every Day Types: Vaping/E-cigarettes , Cigarettes Start date: 2022 Smokeless tobacco: Never Vaping Use Vaping Use: Every day Substances: Flavoring Substance and Sexual Activity Alcohol use: No Drug use: No Sexual activity: Defer Other Topics Concern Caffeine Use Yes Social History Narrative Not on file Social Determinants of Health Financial Resource Strain: Low Risk (05/08/2023) Overall Financial Resource Strain (CARDIA) Difficulty of Paying Living Expenses: Not hard at all Food Insecurity: No Food Insecurity (10/29/2023) Hunger Screening Food Insecurity - Worry: Never True Food Insecurity - Inability: Never True Transportation Needs: No Transportation Needs (05/08/2023) PRAPARE - Transportation Lack of Transportation (Medical): No Lack of Transportation (Non-Medical): No Physical Activity: Not on file Stress: Not on file Social Connections: Not on file Interpersonal Safety: Not on file Housing Instability: Low Risk (05/08/2023) Housing Instability Housing Instability: No Review of Systems Constitutional: Negative for fever. HENT: Negative. Eyes: Negative. Respiratory: Negative. Cardiovascular: Negative for chest pain. Gastrointestinal: Negative. Negative for bowel incontinence. Endocrine: Negative. Genitourinary: Negative. Negative for bladder incontinence. Musculoskeletal: Positive for back pain. Skin: Negative. Neurological: Positive for tingling (right foot) and numbness (right foot). Negative for weakness. Vital Signs: BP 111/85 (BP Site: Left Arm, BP Postition: Sitting) Pulse 107 Resp 18 SpO2 99% Physical Exam: GENERAL - Healthy patient that appears stated age. HEENT - Normocephalic / Atraumatic, Extraoccular movements intact, trachea midline, thyroid within normal limits. CV - pulse regular, Warm extremities with appropriate color of nailbeds. RESP - No obvious wheezing, No Shortness of Breath, No overexertion response to exam maneuvers. COORDINATION - remains intact. PSYCH - Alert and Oriented x4, Attentive and appropriate, constitutionally normal, displays normal mood and affect per situation, answered questions appropriately during examination, demonstrated appropriate attention during discussion, demonstrated appropriate cognitive reasoning and understanding of the medical condition by asking appropriate questions regarding the diagnosis and risks/benefits/alternatives of treatment modalities. No obvious deficits in memory, reasoning, or intellect. Lumbar: SKIN - No rashes or bruising in the area of the patient s pain. LYMPH NODES - demonstrate no obvious enlargement. EXTREMITIES - Lower extremities are warm, with minimal edema and palpable pulses. Tenderness to palpation noted in the lumbar spine and paraspinal musculature. Pain is elicited with flexion, extension, and lateral rotation of the lumbar spine. Range of motion is diminished with these motions due to pain. Facet palpation is noted to be somewhat tender and facet loading maneuvers are mildly positive, but not concordant with the patient s normal pain complaints. STRENGTH - noted to be 5 out of 5 all muscle groups bilateral lower extremities including muscles involving hip flexion and abduction, knee flexion and extension, as well as foot dorsiflexion and plantarflexion. No notable atrophy, fasciculations or spasm. SENSORY - No notable sensory deficits in the bilateral lower extremities to touch or pinprick in all dermatomal distributions. Straight Leg Raise is Positive on the Right. Gait is normal. Assessment/Treatment Plan: Laxmi was seen today for back pain. Diagnoses and all orders for this visit: Lumbar post-laminectomy syndrome Spinal stenosis of lumbar region with neurogenic claudication Referral - Psych consult to proceed with SCS trial and implantation It is felt that due to the severity of the patient s symptoms and lack of response to conservative treatment, other options need to be reviewed at this time. We have discussed SCS implantation. Prior to this he needs to undergo Psych evaluation to proceed with SCS trial. We are referring him to you for evaluation. Hopefully this will provide more definitive treatment strategies for these symptoms. Follow up after psych evalation The medications prescribed have been reviewed for medication interactions/contraindications and/or for upcoming procedures: continue current medication regimen without any changes. DISCUSSION: Treatment options discussed with patient and all questions answered to patient's satisfaction. Discussed the rules and regulations surrounding prescription of opioids and compliance at length. Failure to follow the rules and regulation will result in tapering and discontinuation of medications if applicable. Prescribed medication that requires intensive monitoring for toxicity We do not currently prescribe any controlled substance from this practice. Treatment plans discussed but not opted for at this time: SCS trial. Patient would like to proceed with the current outlined treatment plan before moving forward with any other options. The spine model was demonstrated and Xray and MRI was reviewed and used to explain the condition. Chronic conditions not treated during this visit that affected my overall medical decision making: Obesity, Diabetes and Anxiety OARRS: Reviewed. Scribe Statement: Scribed for and in the presence of BRUCE SERVIN by Abril Durán CNA. Provider Statement: I, BRUCE SERVIN, personally performed the services described in the documentation, as scribed by Abril Durán CNA in my presence, and it is both accurate and complete. Abril Durán CNA 10/29/23 1538 BRUCE Servin 10/31/23 1430 documented in this encounter [facility] 10-29-2023 Instructions Abril Durán CNA - 10/29/2023 2:30 PM EDT documented in this encounter [facility] 10-24-2023 Miscellaneous Notes Patient called into the office and was asking about his results for his labs His labs are similar/stable to last time he had them done. Nothing urgent. But If has questions we can setup telemed in the next 1-2 months to review. We do need to dsicuss lifestyle modification and perhaps some medications/supplments to help his sugars and lipids Please call and notify patient. Thanks, JUSTIN UNDERWOOD MD 10/25/23 Called patient and got him scheduled for appointment in December to go over results. documented in this encounter [facility] 10-24-2023 Telephone encounter Note Patient called into the office and was asking about his results for his labs [facility] 10-24-2023 Telephone encounter Note His labs are similar/stable to last time he had them done. Nothing urgent. But If has questions we can setup telemed in the next 1-2 months to review. We do need to dsicuss lifestyle modification and perhaps some medications/supplments to help his sugars and lipids Please call and notify patient. Thanks, JUSTIN UNDERWOOD MD 10/25/23 [facility] 10-24-2023 Telephone encounter Note Called patient and got him scheduled for appointment in December to go over results. [facility] 10-14-2023 Miscellaneous Notes Patient called and states he had an appointment with Dr. Russell and was told that they will not do surgery on him as they will have to add more hardware. He was told the surgery would be too major. He states Dr. Russell recommended that he consider a SCS. Patient asks if this practice does SCS. He is informed that Dr. Pritchett does implant SCS. He states his guardian (father) is agreeable. Patient is informed he will need to discuss his options further at [facility]. Patient verbalized understanding and asks that his caregiver, Marco, be called to set up appointment. Noted. Will need notes from the surgeon. documented in this encounter [facility] 10-14-2023 Telephone encounter Note Patient called and states he had an appointment with Dr. Russell and was told that they will not do surgery on him as they will have to add more hardware. He was told the surgery would be too major. He states Dr. Russell recommended that he consider a SCS. Patient asks if this practice does SCS. He is informed that Dr. Pritchett does implant SCS. He states his guardian (father) is agreeable. Patient is informed he will need to discuss his options further at [facility]. Patient verbalized understanding and asks that his caregiver, Marco, be called to set up appointment. [facility] 10-14-2023 Telephone encounter Note Noted. Will need notes from the surgeon. [facility] 10-14-2023 Miscellaneous Notes ED Outreach This documentation is being used for Transition of Care purposes: Yes/No: Yes ED Outreach Date: October 14, 2023 ED Outreach Method: COMMUNICATION METHOD: Telephone ED Outreach Attempt: first ED Outreach Outcome: Contacted Patient Name of ED Facility: [facility] Date of ED Discharge: 10/13/2023 Discharge Diagnosis: sciatica of right side ED Chief Complaint: hip pain Current Symptom Status: continuing- spoke with patient's tire care manager, hipaa verified. He has not spoken with patient today but states that this is an ongoing issue that they are going to follow up with pain management. Denies other concerns at this time. Medication Changes Reviewed: yes Medication Questions/Concerns: denies concerns Follow-up PCP Scheduled: will call back to schedule if pain worsens Follow-up Specialist Scheduled: seeing pain management and neurosurgeon Follow up Testing Scheduled: n/a Patient Contacted Office Prior to ED Visit: No. Patient made aware of on-call provider and same day appointment availability. Additional Comments: Patient will contact the office with additional concerns. documented in this encounter logtrust 10-14-2023 Telephone encounter Note ED Outreach This documentation is being used for Transition of Care purposes: Yes/No: Yes ED Outreach Date: October 14, 2023 ED Outreach Method: COMMUNICATION METHOD: Telephone ED Outreach Attempt: first ED Outreach Outcome: Contacted Patient Name of ED Facility: [facility] Date of ED Discharge: 10/13/2023 Discharge Diagnosis: sciatica of right side ED Chief Complaint: hip pain Current Symptom Status: continuing- spoke with patient's tire care manager, hipaa verified. He has not spoken with patient today but states that this is an ongoing issue that they are going to follow up with pain management. Denies other concerns at this time. Medication Changes Reviewed: yes Medication Questions/Concerns: denies concerns Follow-up PCP Scheduled: will call back to schedule if pain worsens Follow-up Specialist Scheduled: seeing pain management and neurosurgeon Follow up Testing Scheduled: n/a Patient Contacted Office Prior to ED Visit: No. Patient made aware of on-call provider and same day appointment availability. Additional Comments: Patient will contact the office with additional concerns. logtrust 10-10-2023 Note SUBJECTIVE: Chief complaint: Back pain. History of present illness: Accompanied by fdc caregiver Marco Gomez today. Return visit for back pain. States he was referred back to us by his pain management provider, Dr. Pritchett. Reports pain on right side of his low back as well as right hip pain that radiates posteriorly down his right leg to his feet. Back pain and leg pain are equally bothersome. Symptoms tend to be worse in the morning. They are worse with activities of daily living, including cleaning and vacuuming, in addition to standing and walking. Nothing in particular seems to help much. Associated with numbness of the right foot as well as weakness of the right leg at times. Reports poor balance, though denies falls. Denies bowel or bladder changes or incontinence. He did complete 2 sessions of physical therapy and was given a home exercise program by physical therapy, though has difficulty completing this due to pain. Follows with pain management, Dr. Pritchett, and has had injections and ablations without lasting or substantial relief. He does report he had discussed the possibility of spinal cord stimulation with pain management, though they reported they did not think this was an option for him. Has tried multiple medications, including gabapentin 600 mg 3 times daily, naproxen twice daily, Tylenol and methocarbamol as needed. He is wondering if I will write him some additional pain medication today. History of previous back surgery, most recently in [address] Washington. Had recent MRI lumbar spine. Review of systems: Constitutional: Denies fever, chills. Genitourinary: Denies incontinence or retention. Gastrointestinal: Denies bowel incontinence. Neurologic: Reports weakness, numbness, tingling, unsteady gait. Denies falls. Musculoskeletal: Denies neck pain, reports hip and back pain. Past Medical History: Diagnosis Date Diabetes mellitus ([facility]) Hypertension Seizures ([facility]) Past Surgical History: Procedure Laterality Date ANTERIOR CERVICAL DISCECTOMY W/ FUSION 03/31/2014 C4-C5, C5-C6, C6-C7 ACDF CERVICAL DISCECTOMY 09/29/2018 screw revision C6-C7 CHOLECYSTECTOMY LUMBAR FUSION 03/05/2016 L5-S1 laminectomy and fusion LUMBAR LAMINECTOMY 01/12/2020 L2-L3 laminectomy, revision L3-S1 laminectomy with removal of S1 screws and placement of new hardware L2-L5, Dr. Washington, Social History Tobacco Use Smoking status: Every Day Packs/day: .25 Types: Cigarettes Passive exposure: Current Smokeless tobacco: Never Vaping Use Vaping Use: Never used Substance Use Topics Alcohol use: Never Drug use: Never Family History Adopted: Yes OBJECTIVE: Medications: aspirin benztropine CAPRON DM ORAL divalproex gabapentin MELATIN ORAL meloxicam metFORMIN XR methocarbamol metoprolol succinate XL omeprazole paliperidone QUEtiapine sertraline simvastatin Victoza 2-Nitesh pen injector Current Outpatient Medications: aspirin 81 mg EC tablet, in the morning., Disp: , Rfl: benztropine (Cogentin) 1 mg tablet, benztropine 1 mg tablet, Disp: , Rfl: divalproex (Depakote) 500 mg EC tablet, divalproex 500 mg tablet,delayed release, Disp: , Rfl: gabapentin (Neurontin) 600 mg tablet, gabapentin 600 mg tablet, Disp: , Rfl: liraglutide (Victoza 2-Nitesh) 0.6 mg/0.1 mL (18 mg/3 mL) injection, Inject 1.8 mg under the skin in the morning., Disp: , Rfl: melatonin (MELATIN ORAL), Take 3 mg by mouth., Disp: , Rfl: meloxicam (Mobic) 15 mg tablet, Take 15 mg by mouth in the morning., Disp: , Rfl: metFORMIN XR (Glucophage-XR) 500 mg 24 hr tablet, metformin ER 500 mg tablet,extended release 24 hr, Disp: , Rfl: methocarbamol (Robaxin) 500 mg tablet, Take 500 mg by mouth if needed each day., Disp: , Rfl: metoprolol succinate XL (Toprol-XL) 50 mg 24 hr tablet, Take 1.5 tablets (75 mg) by mouth in the morning. Do not crush or chew., Disp: 135 tablet, Rfl: 3 omeprazole (PriLOSEC) [address] capsule, omeprazole 20 mg capsule,delayed release, Disp: , Rfl: paliperidone (Invega) 3 mg 24 hr tablet, Take 3 mg by mouth in the morning. Do not crush, chew, or split., Disp: , Rfl: pyrilamine/dextromethorphan hb (CAPRON DM ORAL), Take 10 mg by mouth., Disp: , Rfl: QUEtiapine (SEROquel) 25 mg tablet, 25 mg every 12 (twelve) hours., Disp: , Rfl: QUEtiapine (SEROquel) 300 mg tablet, Take 300 mg by mouth at bedtime. Takes a total of 350 mg nightly, Disp: , Rfl: sertraline (Zoloft) 100 mg tablet, sertraline 100 mg tablet, Disp: , Rfl: simvastatin (Zocor) 20 mg tablet, simvastatin 20 mg tablet, Disp: , Rfl: Allergies: Allergies Allergen Reactions Penicillins Other Sulfa (Sulfonamide Antibiotics) Other Exam: Vitals reviewed: Heart Rate: [125] 125 BP: (140)/(71) 140/71 No intake/output data recorded. No intake/output data recorded. Constitutional: In no apparent distress. Chest: Chest expansion symmetrical. Respirations regular and (more content not included)... [facility] 10-03-2023 History of Present illness Narrative [facility] [address] [place] [address] Patient: Laxmi Torres Sex: male : 1975 Age: 47 y.o. PCP: JUSTIN UNDERWOOD MD 10/03/2023 Laxmi Torres is here for a(n) post procedure follow up right L 1/2 nerve root injection on 09/13/2023 with no relief. Patient reports pain has worsened since procedure. Chief Complaint Patient presents with Back Pain HPI: 09/23/20 Left L5S1 NRI 50% relief 11/03/21 Timoteo SI joint injections with 100% relief for 3 hours then slowly back to baseline next day. 03/03/2021 Bilat L1/2 5/1 Medial Branch Block w/ 90-100% relief for a couple days then 50% relief for 2 weeks. 04/14/21 Timoteo L1/2, 5/1 MBB w/ 100% relief 06/23/21 Lt L1/2, 5/1 RFA w/ 50% relief and 06/05/21 Rt L1/2, 5/1 RFA w/ 50% relief Bilateral SI joint injection on 09/29/2021 with 100% relief for 2 hours. Left SI joint radiofrequency ablation and 12/15/2021 Right SI radiofrequency ablation With 60% relief 09/28/2022 right and 10/12/2022 left L 1/2 L5/S1 Radiofrequency ablations with 50% relief x 2 weeks 12/14/2022 bilateral sacroiliac injections with 50% relief the day of procedure. right L 1/2 nerve root injection on 09/13/2023 with no relief. Back Pain This is a chronic (2016 (or before per caretaker grounds)) problem. The current episode started more than 1 year ago. The problem occurs constantly. The problem has been gradually worsening since onset. The pain is present in the sacro-iliac and lumbar spine (right). The quality of the pain is described as stabbing, shooting, aching, burning and cramping. The pain radiates to the right thigh, right foot and right knee. The pain is at a severity of 8/10 (pain increases with activity especially ambulation and standing and vacuuming ). The pain is moderate. Worse during: worse at various times throughout day. The symptoms are aggravated by standing (sitting to standing transitions, ambulation, walking). Stiffness is present In the morning, all day and at night. Associated symptoms include leg pain (posterior aspect of thighs ), numbness (posterior aspect of thighs ) and tingling (posterior aspect of thighs ). Pertinent negatives include no bladder incontinence, bowel incontinence, chest pain, fever or weakness. Risk factors include lack of exercise, obesity and sedentary lifestyle (osteoarthritis). He has tried ice, heat, analgesics, home exercises, muscle relaxant, NSAIDs and walking (PT (06/2021-Jul 2022), HEP, ice/heat/rest, Tylenol, Gabapentin, Meloxicam daily; Muscle relaxers/Percocet in past, IcyHot. DANA L1/2 on 09/25/19 w/no relief. Back surg 12/2019 w/ mod relief. ., flexeril, lidocaine, toradol) for the symptoms. The treatment provided mild (Left L5, S1 NRI on 10/28/2020 w/100% relief of back & leg pain. ) relief. The effect of pain on patient's ADLS: Moderate Impairment. Past Medical History: Diagnosis Date Abnormal gait 07/02/2011 Acute pancreatitis 08/12/2020 Allergic rhinitis Anxiety Autism Back problem Bipolar I disorder ([facility]) 01/17/2017 Chipped tooth upper molar chipped Chronic pain disorder Chronic sinusitis COVID-2019 Depression Developmental delay disorder Deviated nasal septum 07/30/2022 Diabetes mellitus, type 2 ([facility]) Disc displacement, lumbar 08/20/2019 DNS (deviated nasal septum) alcohol syndrome GERD (gastroesophageal reflux disease) Hemorrhoids without complication 08/12/2020 Hip pain, bilateral Hyperlipidemia Hypersomnia Hypertension Hypokalemia Impulse control disorder in adult Injury of back Intellectual functioning disability 07/02/2011 Leukopenia 03/04/2023 Low back pain Lumbar post-laminectomy syndrome 08/06/2011 Mild oppositional defiant disorder with angry or irritable mood Nasal congestion Nasal turbinate hypertrophy Neck pain Sierra's syndrome Obstructive sleep apnea syndrome 07/02/2011 Seizure disorder ([facility]) states in childhood, denies seizures as an adult Sleep apnea Smoker Spinal stenosis of lumbar region 08/2023 Tachycardia 08/12/2020 Past Surgical History: Procedure Laterality Date BACK SURGERY CHOLECYSTECTOMY INJECTION BLOCK EPIDURAL STEROID LUMBAR/SACRAL: left L 5,1 nroot Left 09/23/2020 Performed by Titus Pritchett MD at [facility] INJECTION BLOCK EPIDURAL STEROID LUMBAR/SACRAL: Left L 5/ Nroot Left 10/28/2020 Performed by Titus Pritchett MD at [facility] INJECTION BLOCK NERVE MEDIAL BRANCH: bilat L 1/2 5/ Bilateral 04/14/2021 Performed by Titus Pritchett MD at [facility] INJECTION BLOCK NERVE MEDIAL BRANCH: bilat L 1/2 _ 5/ Bilateral 03/03/2021 Performed by Titus Pritchett MD at [facility] INJECTION BLOCK SACROILIAC JOINT Bilateral 12/14/2022 Performed by Titus Pritchett MD at [facility] INJECTION BLOCK SACROILIAC JOINT Bilateral 11/03/2021 Performed by Titus Pritchett MD at [facility] INJECTION BLOCK SACROILIAC JOINT Bilateral 09/29/2021 Performed by Titus Pritchett MD at [facility] LUMBAR OR SACRAL EPIDURAL BLOCK WITH STEROIDS: L12 DANA N/A 09/25/2019 Performed by Titus Pritchett MD at [facility] LUMBAR OR SACRAL EPIDURAL BLOCK WITH STEROIDS: L12 DANA N/A 08/28/2019 Performed by Titus Pritchett MD at [facility] SPINE TRANSFORAMINAL: right L 1,2 Nroot Right 09/13/2023 Performed by Titus Pritchett MD at [facility] NECK SURGERY Fusion C4-7 OPEN FUNCTIONAL RHINOPLASTY SEPTOPLASTY NOSE WITH REPAIR OF TURBINATE FRACTURE N/A 03/11/2023 Performed by Marlee Vazquez DO at [facility] RADIOFREQUENCY ABLATION SPINAL: left L 07/23 _ 11/19 Left 10/12/2022 Performed by Titus Pritchett MD at [facility] RADIOFREQUENCY ABLATION SPINAL: left L 07/23 _11/19 Left 06/23/2021 Performed by Titus Pritchett MD at [facility] RADIOFREQUENCY ABLATION SPINAL: left SI Left 12/01/2021 Performed by Titus Pritchett MD at [facility] RADIOFREQUENCY ABLATION SPINAL: right L 07/23 _ 11/19 Right 09/28/2022 Performed by Titus Pritchett MD at [facility] RADIOFREQUENCY ABLATION SPINAL: right L 07/23 _11/19 Right 06/05/2021 Performed by Titus Pritchett MD at [facility] RADIOFREQUENCY ABLATION SPINAL: right SI Right 12/15/2021 Performed by Titus Pritchett MD at [facility] REDUCTION TURBINATE Bilateral 03/11/2023 Performed by Marlee Vazquez DO at [facility] Allergies Allergen Reactions Penicillins Hives Unknown reaction Sulfa (Sulfonamide Antibiotics) Unknown reraction Family History Problem Relation Age of Onset Sleep apnea Father Anesthesia problems Neg Hx Social History Socioeconomic History Marital status: Single Spouse name: Not on file Number of children: Not on file Years of education: Not on file Highest education level: Not on file Occupational History Not on file Tobacco Use Smoking status: Every Day Types: Vaping/E-cigarettes , Cigarettes Start date: 2022 Smokeless tobacco: Never Vaping Use Vaping Use: Every day Substances: Flavoring Substance and Sexual Activity Alcohol use: No Drug use: No Sexual activity: Defer Other Topics Concern Caffeine Use Yes Social History Narrative Not on file Social Determinants of Health Financial Resource Strain: Low Risk (05/08/2023) Overall Financial Resource Strain (CARDIA) Difficulty of Paying Living Expenses: Not hard at all Food Insecurity: No Food Insecurity (10/03/2023) Hunger Screening Food Insecurity - Worry: Never True Food Insecurity - Inability: Never True Transportation Needs: No Transportation Needs (05/08/2023) PRAPARE - Transportation Lack of Transportation (Medical): No Lack of Transportation (Non-Medical): No Physical Activity: Not on file Stress: Not on file Social Connections: Not on file Interpersonal Safety: Not on file Housing Instability: Low Risk (05/08/2023) Housing Instability Housing Instability: No Review of Systems Constitutional: Negative. Negative for chills, fatigue and fever. HENT: Negative. Eyes: Negative. Respiratory: Negative. Cardiovascular: Negative. Negative for chest pain. Gastrointestinal: Negative. Negative for bowel incontinence. Endocrine: Negative. Genitourinary: Negative. Negative for bladder incontinence. Musculoskeletal: Positive for back pain. Skin: Negative. Allergic/Immunologic: Negative. Neurological: Positive for tingling (posterior aspect of thighs ) and numbness (posterior aspect of thighs ). Negative for weakness. Hematological: Negative. Psychiatric/Behavioral: Negative. Vital Signs: BP (!) 131/98 (BP Site: Left Arm, BP Postition: Sitting) Pulse 100 Resp 20 Physical Exam: GENERAL - Healthy patient that appears stated age. HEENT - Normocephalic / Atraumatic, Extraoccular movements intact, trachea midline, thyroid within normal limits. CV - pulse regular, Warm extremities with appropriate color of nailbeds. RESP - No obvious wheezing, No Shortness of Breath, No overexertion response to exam maneuvers. COORDINATION - remains intact. PSYCH - Alert and Oriented x4, Attentive and appropriate, constitutionally normal, displays normal mood and affect per situation, answered questions appropriately during examination, demonstrated appropriate attention during discussion, demonstrated appropriate cognitive reasoning and understanding of the medical condition by asking appropriate questions regarding the diagnosis and risks/benefits/alternatives of treatment modalities. No obvious deficits in memory, reasoning, or intellect. Lumbar: SKIN - No rashes or bruising in the area of the patient s pain. LYMPH NODES - demonstrate no obvious enlargement. EXTREMITIES - Lower extremities are warm, with minimal edema and palpable pulses. Tenderness to palpation noted in the lumbar spine and paraspinal musculature. Pain is elicited with flexion, extension, and lateral rotation of the lumbar spine. Range of motion is diminished with these motions due to pain. Facet palpation is noted to be somewhat tender and facet loading maneuvers are mildly positive, but not concordant with the patient s normal pain complaints. STRENGTH - noted to be 5 out of 5 all muscle groups bilateral lower extremities including muscles involving hip flexion and abduction, knee flexion and extension, as well as foot dorsiflexion and plantarflexion. No notable atrophy, fasciculations or spasm. SENSORY - No notable sensory deficits in the bilateral lower extremities to touch or pinprick in all dermatomal distributions. Straight Leg Raise is negative. Gait is normal. Assessment/Treatment Plan: Laxmi was seen today for back pain. Diagnoses and all orders for this visit: Spinal stenosis of lumbar region with neurogenic claudication Follow up with Neurosurgery Follow up PRN The medications I have prescribed have been reviewed for medication interactions/contraindications and/or for upcoming procedures: continue current medication regimen without any changes. DISCUSSION: Treatment options discussed with patient and all questions answered to patient's satisfaction. Discussed the rules and regulations surrounding prescription of opioids and compliance at length. Failure to follow the rules and regulation will result in tapering and discontinuation of medications if applicable. Prescribed medication that requires intensive monitoring for toxicity We do not currently prescribe any controlled substance from this practice. The spine model was demonstrated and MRI was reviewed and used to explain the condition. Chronic conditions not treated during this visit that affected my overall medical decision making: Diabetes and Obesity OARRS: Reviewed. Scribe Statement: Scribed for and in the presence of BRUCE SERVIN by Abril Durán CNA. Provider Statement: I, BRUCE SERVIN, personally performed the services described in the documentation, as scribed by Abril Durán CNA in my presence, and it is both accurate and complete. Abril Durán CNA 10/03/23 1427 BRUCE Servin 10/10/23 1204 documented in this encounter [facility] 09-25-2023 History of Present illness Narrative Images from the original note were not included. [address] [place] [id number] Patient: Laxmi Torres Date of : 1975 Encounter Date: 09/25/2023 SUBJECTIVE: Chief Complaint: Chief Complaint Patient presents with medication Patient ID: Laxmi Torres is a 47 y.o. male. 47-year-old gentleman who is adult foster care resident with a notable past medical history of bipolar disorder, Parkinson's syndrome, type 2 diabetes, sleep apnea in addition to many other comorbidities here today for interval assessment of his chronic conditions and a medication review. New concerns of bilateral frontal headaches with a stabbing intermittent nature of pain. Aggravated on the exposure to light, relieved at rest. 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 Tylenol does help resolve the pain slightly. Does endorse some poor sleep with multiple waking. The following portions of the patient's history were reviewed and updated as appropriate: allergies, current medications, past family history, past medical history, past social history, past surgical history and problem list. PHYSICAL EXAMINATION: Vitals: 09/25/23 1143 BP: 114/74 Pulse: 108 Temp: 36.7 C (98.1 F) SpO2: 97% Weight: 107 kg (236 lb) Height: 177.8 cm (5' 10 ) Physical Exam Vitals reviewed. Constitutional: General: He is not in acute distress. Appearance: Normal appearance. Eyes: Extraocular Movements: Extraocular movements intact. Pupils: Pupils are equal, round, and reactive to light. Cardiovascular: Rate and Rhythm: Normal rate and regular rhythm. Pulses: Normal pulses. Heart sounds: Normal heart sounds. Pulmonary: Effort: Pulmonary effort is normal. No respiratory distress. Breath sounds: Normal breath sounds. No wheezing or rhonchi. Abdominal: General: Bowel sounds are normal. There is no distension. Palpations: Abdomen is soft. There is no mass. Tenderness: There is no abdominal tenderness. There is no right CVA tenderness, left CVA tenderness or guarding. Musculoskeletal: Cervical back: Normal range of motion and neck supple. Neurological: Mental Status: He is alert and oriented to person, place, and time. Mental status is at baseline. ASSESSMENT/PLAN: Laxmi was seen today for medication. Diagnoses and all orders for this visit: Type 2 diabetes mellitus without complication, without long-term current use of insulin ([facility]) - CBC auto differential; Future - Comprehensive metabolic panel; Future - Lipid profile; Future - Hemoglobin A1c; Future - Valproic acid level, free; Future Parkinson's disease Schizoaffective disorder, depressive type ([facility]) Seizure disorder ([facility]) - Valproic acid level, free; Future Other orders - omeprazole (PriLOSEC) 20 mg capsule; Take 1 capsule (20 mg total) by mouth 2 (two) times a day as needed (pain). Patient has extensive list of medications which were reviewed, they do match up to [facility] present. We did make some modifications from scheduled to p.r.n. for several medications with some clear indications of what p.r.n. uses they should be 4. We did modify the use of Benadryl from just allergy symptoms to both allergy and headache. Overall patient is doing well in his due for his metabolic blood work which we obtained today No additional acute concerns were addressed other than the headaches today. Blood work was obtained Patient was in stable condition. JUSTIN UNDERWOOD MD Family Medicine Physician [facility] Medicine / [facility] 09/25/23 This note was completed with voice recognition software. The document was reviewed for errors however some may still be present. Please do not hesitate to contact/Epic msg the author to verify any questions/concerns. documented in this encounter [facility] 09-24-2023 Note Hypertension is well controlled with toprol [facility] 09-24-2023 Note Increase toprol to 7 5 mg daily for intermittent tachycardia that pt feels [facility] 09-24-2023 Note [facility] CARDIOLOGY PROGR ESS NOTE HPI: Laxmi Torres is a 47 y.o. male here for HTN, palpitations HPI Patient here for 1 year follow up hypertension, hyperlipidemia, and palpitations. He was seen by [facility] in January 2023 for pre-surgery clearance. Stress test was then performed. He followed up abnormal stress test in Feb [address] Janelle Kahn. She ordered CTA (instead of heart cath) which was done in May 2023. Denies chest pain. Does get SOB and palpitations. C/O fast heart rates at times that last a couple minutes, denied chest pain or SOB with tachycardia. Denied dizziness, near syncope or syncope. Review of Systems Cardiovascular: Positive for dyspnea on exertion and palpitations. Musculoskeletal: Positive for arthritis, back pain, joint pain and myalgias. Neurological: Positive for light-headedness. All other systems reviewed and are negative. Past Medical History: Diagnosis Date Allergic rhinitis Anxiety Autism Back problem Chronic pain disorder Depression Developmental delay disorder Diabetes mellitus type 2, controlled ([facility]) alcohol syndrome GERD (gastroesophageal reflux disease) Hearing loss Hip pain, bilateral Hyperlipidemia Hypersomnia Hypertension Hypokalemia Impulse control disorder in adult Injury of back Low back pain Mild oppositional defiant disorder with angry or irritable mood Neck pain Sierra's syndrome Seizure disorder (CMS-HCC) Sleep apnea Visit Vitals BP 105/73 (BP Location: Left arm, Patient Position: Sitting) Pulse 94 Ht 1.829 m (6') Wt 108 kg (238 lb) SpO2 93% BMI 32.28 kg/m??? Smoking Status Never BSA 2.34 m??? Allergies Allergen Reactions Penicillins Other Sulfa (Sulfonamide Antibiotics) Other Medications: Current Outpatient Medications on File Prior to Visit Medication Sig Dispense Refill aspirin 81 mg EC tablet in the morning. benztropine (Cogentin) 1 mg tablet benztropine 1 mg tablet divalproex (Depakote) 500 mg EC tablet divalproex 500 mg tablet,delayed release gabapentin (Neurontin) 600 mg tablet gabapentin 600 mg tablet liraglutide (Victoza 2-Nitesh) 0.6 mg/0.1 mL (18 mg/3 mL) injection Inject 1.2 mg under the skin in the morning. melatonin (MELATIN ORAL) Take 3 mg by mouth. meloxicam (Mobic) 15 mg tablet Take 15 mg by mouth in the morning. metFORMIN XR (Glucophage-XR) 500 mg 24 hr tablet metformin ER 500 mg tablet,extended release 24 hr methocarbamol (Robaxin) 500 mg tablet Take 500 mg by mouth if needed each day. omeprazole (PriLOSEC) [address] capsule omeprazole 20 mg capsule,delayed release paliperidone (Invega) 3 mg 24 hr tablet Take 3 mg by mouth in the morning. Do not crush, chew, or split. pyrilamine/dextromethorphan hb (CAPRON DM ORAL) Take 10 mg by mouth. QUEtiapine (SEROquel) 25 mg tablet 25 mg every 12 (twelve) hours. QUEtiapine (SEROquel) 300 mg tablet Take 300 mg by mouth at bedtime. Takes a total of 350 mg nightly sertraline (Zoloft) 100 mg tablet sertraline 100 mg tablet simvastatin (Zocor) 20 mg tablet simvastatin 20 mg tablet [DISCONTINUED] metoprolol succinate XL (Toprol-XL) 50 mg 24 hr tablet metoprolol succinate ER 50 mg tablet,extended release 24 hr [DISCONTINUED] acetaminophen (Tylenol) 500 mg tablet Take 1 tablet by mouth every 6 (six) hours if needed. [DISCONTINUED] amlodipine-atorvastatin (Caduet) 10-10 mg tablet in the morning. [DISCONTINUED] bismuth subsalicylate (Pepto Bismol) 262 mg/15 mL suspension Take 15 mL by mouth every 6 (six) hours if needed for indigestion. [DISCONTINUED] rpumtrgmlw-ovivmgityqbax-wsdz 50-325-40 mg tablet Take 1 tablet by mouth every 4 (four) hours if needed. [DISCONTINUED] calcium carbonate (Tums) 200 mg calcium (500 mg) chewable tablet Chew 1 tablet in the morning. [DISCONTINUED] cetirizine (ZyrTEC) 10 mg tablet Take 10 mg by mouth in the morning. [DISCONTINUED] clindamycin (Cleocin) 150 mg capsule 2 capsules every 8 (eight) hours. [DISCONTINUED] clonazePAM (KlonoPIN) 1 mg disintegrating tablet clonazepam 1 mg disintegrating tablet [DISCONTINUED] cyclobenzaprine (Flexeril) 10 mg tablet Take 5 mg by mouth if needed in the morning and at bedtime. [DISCONTINUED] dextran 70-hypromellose, PF, (Bion Tears) 0.1-0.3 % ophthalmic solution 1 drop if needed in the morning, at noon, and at bedtime for dry eyes. [DISCONTINUED] diazePAM (Valium) 5 mg tablet Take 5 mg by mouth every 8 (eight) hours if needed for anxiety. [DISCONTINUED] docusate sodium (Colace) 100 mg capsule Take 100 mg by mouth in the morning and at bedtime. [DISCONTINUED] fluticasone (Flonase) 50 mcg/actuation nasal spray 1 spray by Nasal route 2 times daily [DISCONTINUED] ketoconazole (NIZOral) 2 % shampoo Apply topically 2 (two) times a week. [DISCONTINUED] lidocaine (Lidoderm) 5 % patch Apply 1 patch topically in the morning. Remove & discard patch within 12 hours or as directed by MD. [DISCONTINUED] loratadine (Claritin) 10 m (more content not included)... [facility] 09-24-2023 Note Patient here for 1 y ear follow up hypertension, hyperlipidemia, and palpitations. He was seen by [facility] in January 2023 for pre-surgery clearance. Stress test was then performed. He followed up abnormal stress test in Feb [address] Janelle Kahn. She ordered CTA (instead of heart cath) which was done in May 2023. Denies chest pain. Does get SOB and palpitations. Review of Systems Cardiovascular: Positive for dyspnea on exertion and palpitations. Musculoskeletal: Positive for arthritis, back pain, joint pain and myalgias. Neurological: Positive for light-headedness. All other systems reviewed and are negative. [facility] 09-16-2023 Miscellaneous Notes Pt had right L 1, 2 nerve root on 09/13/2023, his right leg pain helped greatly but pain returned today. Right hip, back of leg, right foot pain 8/10. Current treatment is tylenol 500 mg every once in a while. Informed pt he is able to take tylenol x2 tab every 8 hours, add OTC pain relieving ointments/creams, patches, heat/ice. PVU, will start taking tylenol more frequent and has [employer]maworks pain relief cream to use. documented in this encounter [facility] 09-16-2023 Telephone encounter Note Pt had right L 1, 2 nerve root on 09/13/2023, his right leg pain helped greatly but pain returned today. Right hip, back of leg, right foot pain 8/10. Current treatment is tylenol 500 mg every once in a while. Informed pt he is able to take tylenol x2 tab every 8 hours, add OTC pain relieving ointments/creams, patches, heat/ice. PVU, will start taking tylenol more frequent and has [employer]works pain relief cream to use. [facility] 09-03-2023 History of Present illness Narrative [facility] [address] [place] [address] Patient: Lamxi Torres Sex: male : 1975 Age: 47 y.o. PCP: JUSTIN UNDERWOOD MD 09/03/2023 Laxmi Torres is here for a follow up after completing a Lumbar spine MRI. Chief Complaint Patient presents with Back Pain HPI: 09/23/20 Left L5S1 NRI 50% relief 11/03/21 Timoteo SI joint injections with 100% relief for 3 hours then slowly back to baseline next day. 03/03/2021 Bilat L1/2 5/ Medial Branch Block w/ 90-100% relief for a couple days then 50% relief for 2 weeks. 04/14/21 Timoteo L1/2, 5/ MBB w/ 100% relief 06/23/21 Lt L1/2, 5/ RFA w/ 50% relief and 06/05/21 Rt L1/2, 5/ RFA w/ 50% relief Bilateral SI joint injection on 09/29/2021 with 100% relief for 2 hours. Left SI joint radiofrequency ablation and 12/15/2021 Right SI radiofrequency ablation With 60% relief 09/28/2022 right and 10/12/2022 left L 1/2 L5/S1 Radiofrequency ablations with 50% relief x 2 weeks 12/14/2022 bilateral sacroiliac injections with 50% relief the day of procedure. Back Pain This is a chronic (2016 (or before per caretaker grounds)) problem. The current episode started more than 1 year ago. The problem occurs constantly. The problem has been gradually worsening since onset. The pain is present in the sacro-iliac and lumbar spine (right). The quality of the pain is described as stabbing, shooting, aching, burning and cramping. The pain radiates to the right thigh, right foot and right knee. The pain is at a severity of 8/10 (pain increases with activity especially ambulation and standing and vacuuming ). The pain is moderate. The pain is The same all the time. The symptoms are aggravated by standing (sitting to standing transitions, ambulation, walking). Stiffness is present In the morning, all day and at night. Associated symptoms include leg pain (posterior aspect of thighs ), numbness (posterior aspect of thighs ) and tingling (posterior aspect of thighs ). Pertinent negatives include no bladder incontinence, bowel incontinence, chest pain, fever or weakness. Risk factors include lack of exercise, obesity and sedentary lifestyle (osteoarthritis). He has tried ice, heat, analgesics, home exercises, muscle relaxant, NSAIDs and walking (PT (06/2021-Jul 2022), HEP, ice/heat/rest, Tylenol, Gabapentin, Meloxicam daily; Muscle relaxers/Percocet in past, IcyHot. DANA L1/2 on 09/25/19 w/no relief. Back surg 12/2019 w/ mod relief. ., flexeril, lidocaine, toradol) for the symptoms. The treatment provided mild (Left L5, S1 NRI on 10/28/2020 w/100% relief of back & leg pain. ) relief. The effect of pain on patient's ADLS: Moderate Impairment. Past Medical History: Diagnosis Date Abnormal gait 07/02/2011 Acute pancreatitis 08/12/2020 Allergic rhinitis Anxiety Autism Back problem Bipolar I disorder [place] 01/17/2017 Chipped tooth upper molar chipped Chronic pain disorder Chronic sinusitis COVID-2019 Depression Developmental delay disorder Deviated nasal septum 07/30/2022 Diabetes mellitus, type 2 ([facility]) Disc displacement, lumbar 08/20/2019 DNS (deviated nasal septum) alcohol syndrome GERD (gastroesophageal reflux disease) Hemorrhoids without complication 08/12/2020 Hip pain, bilateral Hyperlipidemia Hypersomnia Hypertension Hypokalemia Impulse control disorder in adult Injury of back Intellectual functioning disability 07/02/2011 Leukopenia 03/04/2023 Low back pain Lumbar post-laminectomy syndrome 08/06/2011 Mild oppositional defiant disorder with angry or irritable mood Nasal congestion Nasal turbinate hypertrophy Neck pain Sierra's syndrome Obstructive sleep apnea syndrome 07/02/2011 Seizure disorder ([facility]) states in childhood, denies seizures as an adult Sleep apnea Smoker Tachycardia 08/12/2020 Past Surgical History: Procedure Laterality Date BACK SURGERY CHOLECYSTECTOMY INJECTION BLOCK EPIDURAL STEROID LUMBAR/SACRAL: left L 5,1 nroot Left 09/23/2020 Performed by Titus Pritchett MD at [facility] INJECTION BLOCK EPIDURAL STEROID LUMBAR/SACRAL: Left L 5/1 Nroot Left 10/28/2020 Performed by Titus Pritchett MD at [facility] INJECTION BLOCK NERVE MEDIAL BRANCH: bilat L 1/2 5/ Bilateral 04/14/2021 Performed by Titus Pritchett MD at [facility] INJECTION BLOCK NERVE MEDIAL BRANCH: bilat L /2 _ 11/19 Bilateral 03/03/2021 Performed by Titus Pritchett MD at [facility] INJECTION BLOCK SACROILIAC JOINT Bilateral 12/14/2022 Performed by Titus Pritchett MD at [facility] INJECTION BLOCK SACROILIAC JOINT Bilateral 11/03/2021 Performed by Titus Pritchett MD at [facility] INJECTION BLOCK SACROILIAC JOINT Bilateral 09/29/2021 Performed by Titus Pritchett MD at [facility] INJECTION LUMBAR OR SACRAL EPIDURAL BLOCK WITH STEROIDS: L12 DANA N/A 09/25/2019 Performed by Titus Pritchett MD at [facility] INJECTION LUMBAR OR SACRAL EPIDURAL BLOCK WITH STEROIDS: L12 DANA N/A 08/28/2019 Performed by Titus Pritchett MD at [facility] NECK SURGERY Fusion C4-7 OPEN FUNCTIONAL RHINOPLASTY SEPTOPLASTY NOSE WITH REPAIR OF TURBINATE FRACTURE N/A 03/11/2023 Performed by Marlee Vazquez DO at [facility] RADIOFREQUENCY ABLATION SPINAL: left L /2 _ 11/19 Left 10/12/2022 Performed by Titus Pritchett MD at [facility] RADIOFREQUENCY ABLATION SPINAL: left L /2 _11/19 Left 06/23/2021 Performed by Titus Pritchett MD at [facility] RADIOFREQUENCY ABLATION SPINAL: left SI Left 12/01/2021 Performed by Titus Pritchett MD at [facility] RADIOFREQUENCY ABLATION SPINAL: right L /2 _ 11/19 Right 09/28/2022 Performed by Titus Pritchett MD at [facility] RADIOFREQUENCY ABLATION SPINAL: right L /2 _11/19 Right 06/05/2021 Performed by Titus Pritchett MD at [facility] RADIOFREQUENCY ABLATION SPINAL: right SI Right 12/15/2021 Performed by Titus Pritchett MD at [facility] REDUCTION TURBINATE Bilateral 03/11/2023 Performed by Marlee Vazquez DO at [facility] Allergies Allergen Reactions Penicillins Hives Unknown reaction Sulfa (Sulfonamide Antibiotics) Unknown reraction Family History Problem Relation Age of Onset Sleep apnea Father Anesthesia problems Neg Hx Social History Socioeconomic History Marital status: Single Spouse name: Not on file Number of children: Not on file Years of education: Not on file Highest education level: Not on file Occupational History Not on file Tobacco Use Smoking status: Every Day Types: Vaping/E-cigarettes , Cigarettes Start date: 2022 Smokeless tobacco: Never Vaping Use Vaping Use: Every day Substances: Flavoring Substance and Sexual Activity Alcohol use: No Drug use: No Sexual activity: Defer Other Topics Concern Caffeine Use Yes Social History Narrative Not on file Social Determinants of Health Financial Resource Strain: Low Risk (05/08/2023) Overall Financial Resource Strain (CARDIA) Difficulty of Paying Living Expenses: Not hard at all Food Insecurity: No Food Insecurity (09/03/2023) Hunger Screening Food Insecurity - Worry: Never True Food Insecurity - Inability: Never True Transportation Needs: No Transportation Needs (05/08/2023) PRAPARE - Transportation Lack of Transportation (Medical): No Lack of Transportation (Non-Medical): No Physical Activity: Not on file Stress: Not on file Social Connections: Not on file Interpersonal Safety: Not on file Housing Instability: Low Risk (05/08/2023) Housing Instability Housing Instability: No Review of Systems Constitutional: Negative. Negative for chills, fatigue and fever. HENT: Negative. Eyes: Negative. Respiratory: Negative. Cardiovascular: Negative. Negative for chest pain. Gastrointestinal: Negative. Negative for bowel incontinence. Endocrine: Negative. Genitourinary: Negative. Negative for bladder incontinence. Musculoskeletal: Positive for back pain. Skin: Negative. Allergic/Immunologic: Negative. Neurological: Positive for tingling (posterior aspect of thighs ) and numbness (posterior aspect of thighs ). Negative for weakness. Hematological: Negative. Psychiatric/Behavioral: Negative. Vital Signs: BP 121/89 (BP Site: Left Arm, BP Postition: Sitting) Pulse 100 Resp 20 Physical Exam: GENERAL - Healthy patient that appears stated age. HEENT - Normocephalic / Atraumatic, Extraoccular movements intact, trachea midline, thyroid within normal limits. CV - pulse regular, Warm extremities with appropriate color of nailbeds. RESP - No obvious wheezing, No Shortness of Breath, No overexertion response to exam maneuvers. COORDINATION - remains intact. PSYCH - Alert and Oriented x4, Attentive and appropriate, constitutionally normal, displays normal mood and affect per situation, answered questions appropriately during examination, demonstrated appropriate attention during discussion, demonstrated appropriate cognitive reasoning and understanding of the medical condition by asking appropriate questions regarding the diagnosis and risks/benefits/alternatives of treatment modalities. No obvious deficits in memory, reasoning, or intellect. Lumbar: SKIN - No rashes or bruising in the area of the patient s pain. LYMPH NODES - demonstrate no obvious enlargement. EXTREMITIES - Lower extremities are warm, with minimal edema and palpable pulses. Tenderness to palpation noted in the lumbar spine and paraspinal musculature. Pain is elicited with flexion, extension, and lateral rotation of the lumbar spine. Range of motion is diminished with these motions due to pain. Facet palpation is noted to be somewhat tender and facet loading maneuvers are mildly positive, but not concordant with the patient s normal pain complaints. STRENGTH - noted to be 5 out of 5 all muscle groups bilateral lower extremities including muscles involving hip flexion and abduction, knee flexion and extension, as well as foot dorsiflexion and plantarflexion. No notable atrophy, fasciculations or spasm. SENSORY - No notable sensory deficits in the bilateral lower extremities to touch or pinprick in all dermatomal distributions. Straight Leg Raise is Positive on the Right Gait is normal. Assessment/Treatment Plan: Laxmi was seen today for back pain. Diagnoses and all orders for this visit: Spinal stenosis of lumbar region with neurogenic claudication - Case request operating room: INJECTION SPINE TRANSFORAMINAL: right L12 Right L1,2 Nerve Root Injection - under fluoroscopy with the use of contrast dye (unless contraindicated) It is hopeful that the described procedure will provide symptomatic pain relief. It is felt to be medically necessary noting that the patient has tried and failed more conservative modalities of therapy and this is the next most appropriate step. The procedure was described in detail to the patient as well as the potential benefits of pain reduction alongside risks of the procedure and alternatives. Risks were described as including, but not limited to bleeding, infection, nerve damage, spinal cord injury, paralysis, stroke, dural puncture headache, and medication reaction. The patient expressed understanding regarding the risks and benefits and wishes to proceed. It was explained that Nerve Root Injections and Transforaminal Epidural Injections often require a series of 2-3 before significant relief is noted, but we will determine after each injection if another one is indicated. Depending on the amount and duration of relief obtained from the injection, additional modalities of therapy including medications and physical therapy may need to be utilized alongside or following the injections. Follow up 2 weeks after procedure The medications prescribed have been reviewed for medication interactions/contraindications and/or for upcoming procedures: continue current medication regimen without any changes. DISCUSSION: Treatment options discussed with patient and all questions answered to patient's satisfaction. Discussed the rules and regulations surrounding prescription of opioids and compliance at length. Failure to follow the rules and regulation will result in tapering and discontinuation of medications if applicable. Prescribed medication that requires intensive monitoring for toxicity We do not currently prescribe any controlled substance from this practice. Treatment plans discussed but not opted for at this time: Neurosurgical consult. Patient would like to proceed with the current outlined treatment plan before moving forward with any other options. The spine model was demonstrated and MRI was reviewed and used to explain the condition. Chronic conditions not treated during this visit that affected my overall medical decision making: Comorbidity- Obesity The patient does have a comorbid condition of obesity. This will be taken into account in that obesity will contribute to certain pain conditions. It can contribute to pain from degenerative disc disease as well as osteoarthritis of the joints. Many neuropathic symptoms are also amplified due to axial spine loading. Special benefits will also need to be given to procedures. Many procedures are technically more difficult in the light of severe obesity. I will also consider the possibility of undiagnosed obstructive sleep apnea (which often accompanies obesity) when prescribing any narcotic medications. I will weigh the risks and benefits and fully discuss them with the patient for these reasons. Comorbidity- Diabetes The patient has a history of diabetes mellitus currently managed with medications. This will need to be considered prior to any procedure that would require the injection of steroid in that the patient may experience a transient increase in glucose as a result. Additional consideration will need to be given to timing the procedure early in the morning in that the patient will need to be fasting prior to the administration of anesthesia. Every effort will be made to perform the procedure as a 1st case due to this condition. And the patient will be instructed to hold their diabetic medications on that morning. If necessary, a blood glucose test can also be performed that morning. The risks/ benefits/ and alternatives will be weighed and explained to the patient prior to any procedure. OARRS: Reviewed. Scribe Statement: Scribed for and in the presence of BRUCE SERVIN by Abril Durán CNA. Provider Statement: IGUILLAUME PA, personally performed the services described in the documentation, as scribed by Abril Durán CNA in my presence, and it is both accurate and complete. Abril Durán CNA 09/03/23 1412 BRUCE Servin 09/03/23 1516 documented in this encounter [facility] 09-03-2023 Instructions Abril LincolngenevieveLEELA - 09/03/2023 1:45 PM EST Epidural Steroid Injection (DANA) / Nerve Root Injection / Nerve Block These procedure(s) involve the injection of a steroid and anesthetic into the epidural space or the nerve sheath that is both diagnostic and potentially therapeutic for alleviating discomfort of the legs and arms secondary to compression of the respective nerves due to bulging discs, bone spurs and other potential causes. Steroids are potent anti-inflammatory drugs that act to decrease the swollen and inflamed nerves thus relieving your clinical symptoms. How Long Will This Procedure Last? The extent and duration of pain relief may depend on the amount of inflammation and how many areas are involved. Other coexisting factors may be responsible for your pain. You and your physician will discuss expected results of procedure(s). After Your Injection You may experience soreness and tenderness at the area of treatment. This pain may not occur until later today after the numbing medicine wears off. The steroid can take 3-5 days to work and provide noticeable improvement. Activity You may feel temporary numbness, weakness or tingling: In the neck, arm, or fingertips (if your procedure was done in your neck) In the legs (if your procedure was done in your lower back) These symptoms are normal, and should subside within 3-4 hours. In that time, be careful to avoid falls. As a safety precaution, you must have a truck driver salesperson after a lumbar nerve root injection, even if you do not receive sedation. Resume activity as tolerated when function has returned. Medications Resume your routine medications after your procedure. You may resume blood thinners per your regular schedule after the procedure. If you received sedation: If you received sedation for your procedure, you may feel sleepy or not yourself for several hours today. For the next 24 hours avoid activities that requires alertness or coordination. This includes: Driving or operating heavy machinery Using power tools Consuming alcohol Do not make important or complex decisions or sign legal documents in the next 24 hours. Other Instructions: If you feel severe pain at the injection site with swelling and redness, increased leg weakness, a fever of 101 or higher, headache (or worsening headache), changes in vision or urinary retention: Please call the office at , or have someone take you to the nearest emergency room. Tell the emergency room staff that you recently had a spine injection. A doctor must evaluate you for bleeding and injection complications. If you lose control over bowel, bladder, or legs: Go to the nearest emergency room. If you are diabetic, the steroids used in this procedure can increase your blood sugar. If your blood sugar is 250mg/dL or higher, contact your primary care physician, or the doctor who manages your diabetes, to discuss how to get it back to normal. documented in this encounter [facility] 08-29-2023 History of Present illness Narrative Images from the original note were not included. Subjective Patient ID: Rogers Torres is a 47 y.o. male who presents for DM Foot Care. HPI HPI Onychomycosis/Toenail Fungus: Patient last in clinic April 2022. Symptomatic toenail deformity. Location: left great toe remains problematic/symptomatic. Duration: chronic toenail deformity, multiple years duration. Severity of symptoms: mild-moderate, impacting his ability to wear shoes comfortably. Onsetgradual, without injury or trauma. Statusprogressively problematic/symptomatic over the past 1-2 months or so. Context: hard to trim , hard to reach; self-care remains ill advised, difficult and not practical; increasing risk exposure Care staff unable to provide effective care. Characteristics: discolored, thickened, pain , ingrowing , pressure , elongated; without bleeding or drainage. Relieved by: palliative care measures provide effective transient symptom relief. Previous Treatment: satisfactory outcome total matricectomy phenol technique right great toe; April 2019. Risk factors: type II diabetes. Medical comorbidities. Polypharmacy. Mobility and flexibility restraints. toenail dystrophy. Shoe and/or digital trauma and related complications. Aggravated by: shoe gear , pressure , walking, catching and snagging on clothing, bed sheets etc.. Medications No current outpatient medications on file. Allergies Penicillins and Sulfa antibiotics Past Surgical History Past Surgical History: Procedure Laterality Date BACK SURGERY CT ANGIOGRAM HEART CORONARY 06/07/2023 CT ANGIOGRAM HEART CORONARY 06/07/2023 CT ANGIOGRAM HEART CORONARY 06/29/2021 CT ANGIOGRAM TAVR 06/29/2021 CT ANGIOGRAM HEART CORONARY 05/12/2021 CT ANGIOGRAM TAVR 05/12/2021 NECK SURGERY Family History No family history on file. Objective General Examination: GENERAL EXAMINATIONalert and oriented. Pleasant and cooperative disposition. Independently ambulatory. His caregiver is present. FOOT EXAM: Date of Last Foot Exam 08/29/2023 Sensory testing performed: sensations normal Sensory and motor testing performed: strength normal Pedal pulse taking performed: 2+ Vascular: DORSALIS PEDIS PULSE:bilaterally, 2/4. POSTERIOR TIBIAL PULSE:bilaterally, 1/4. TEMPERATURE GRADIENT:warm to warm. EDEMA: unremarkable for ankle or pedal edema. CAPILLARY FILLING TIME(sec):capillary fill intact bilateral digits less than 3 secs. Neurologic: MUSCLE POWER:no focal deficits. SHARP SENSATION:tactile and soft touch sensation intact. 5.07 monofilament: Intact localization all points Dermatologic: SKIN FINDINGS:intact. Skin turgor is good. HYPERTROPHIC LESION:no forefoot or digital keratotic pressure lesions are noted. NAIL PATHOLOGY: Left great toe: Toenail deformity and onychomycosis with lunula involvement: Toenail dystrophy, thickening, discoloration, brittleness, crumbly texture; the margins are incurvated/cryptotic, keratotic, tender, non-inflamed, without drainage. 2nd digits bilateral: Stable toenail dystrophy and clinical mycosis. Right great toe: Satisfactory outcome total matricectomy/phenol technique. INTERDIGITAL MACERATION:clean, dry, non-inflamed. ULCER:no sign of ulceration or open wound. SKIN PATHOLOGY:texture, turgor, hair growth, within normal limits. Ankle / Foot: RANGE OF MOTION:demonstrates functional ankle, subtalar and MTP joint range of motion without pain. Radiology: Assessment/Plan Symptomatic TDO deformity left great toe. Type II diabetes Satisfactory outcome total matricectomy/phenol technique right great toe Plan: review of clinical findings, treatment strategy, rationale and objectives. Patient remains well satisfied with conservative and palate care measures; expressing again no interest in oral (polypharmacy) or topical therapy. Caregiver concurs. Discussed total matricectomy/phenol technique left great toe for consideration. Diabetic education and assessment Procedure: Toenail Debridement: Aseptic technique: power/manual instrumentation: onychodebridement length and thickness, curretage of offending crypotic margins, munira-ungual debris, providing effective pressure and symptom relief, reducing shoe and digital trauma. This note was created with the assistance of a speech recognition program. While intending to generate a timely document that accurately reflects the content of the visit, no guarantee can be provided that every grammatical or spelling mistake has been or will be identified or corrected. Thank you for your understanding. Dionne Barlow DPM documented in this encounter [facility] 08-29-2023 Instructions Dionne Barlow DPM - 08/29/2023 1:30 PM EST As noted documented in this encounter [facility] 08-22-2023 Miscellaneous Notes Call received from patient informing this office that he is scheduled for MRI Saturday08/26/2023. Patient asks typewriter ribbon winder to call caregiver, Flory, to schedule follow up appointment.. Call placed to Flory and follow up appointment was made. Patient called to inform this office that he had his MRI today. Patient is informed that he is scheduled for follow up appointment September 03 at 1:45. Patient verbalized understanding. documented in this encounter [facility] 08-22-2023 Telephone encounter Note Call received from patient informing this office that he is scheduled for MRI Saturday08/26/2023. Patient asks typewriter ribbon winder to call caregiver, Flory, to schedule follow up appointment.. Call placed to Flory and follow up appointment was made. [facility] 08-22-2023 Telephone encounter Note Patient called to inform this office that he had his MRI today. Patient is informed that he is scheduled for follow up appointment September 03 at 1:45. Patient verbalized understanding. [facility] Evaluation note Diagnosis Type 2 diabetes mellitus without complication, without long-term current use of insulin (CMS/HCC)- Primary Dermatophytosis of nail Dystrophic nail Other specified disease of nail Pain around toenail [facility] Diagnosis Parkinson's disease (CMS-HCC)- Primary Type 2 diabetes mellitus treated without insulin (CMS-HCC) Disc displacement, lumbar Displacement of lumbar intervertebral disc without myelopathy Preop examination- Primary Unspecified pre-operative examination Hypertension, unspecified type Type 2 diabetes mellitus without complication, without long-term current use of insulin (CMS-HCC) [facility] Preop examination- Primary Unspecified pre-operative examination Hypertension, unspecified type Type 2 diabetes mellitus without complication, without long-term current use of insulin (CMS-HCC) [facility] Diagnosis Disc displacement, lumbar Displacement of lumbar intervertebral disc without myelopathy Type 2 diabetes mellitus without complication, without long-term current use of insulin (CMS-HCC) [facility] Diagnosis Hypertriglyceridemia- Primary Pure hyperglyceridemia Hypercholesteremia Pure hypercholesterolemia [facility] Diagnosis Primary cough headache Disc displacement, lumbar Displacement of lumbar intervertebral disc without myelopathy Type 2 diabetes mellitus without complication, without long-term current use of insulin ([facility]) [facility] Diagnosis Lumbar post-laminectomy syndrome- Primary Postlaminectomy syndrome, lumbar region [facility] Diagnosis Anxiety attack- Primary Panic disorder without agoraphobia [facility] Diagnosis Disc displacement, lumbar Displacement of lumbar intervertebral disc without myelopathy [facility] Diagnosis Disc displacement, lumbar Displacement of lumbar intervertebral disc without myelopathy [facility] Diagnosis Disc displacement, lumbar Displacement of lumbar intervertebral disc without myelopathy [facility] Diagnosis Spinal stenosis of lumbar region with neurogenic claudication- Primary Spinal stenosis of lumbar region- Primary Spinal stenosis of lumbar region with neurogenic claudication [facility] Diagnosis Lumbar post-laminectomy syndrome- Primary Postlaminectomy syndrome, lumbar region Parkinson's disease ([facility])- Primary Type 2 diabetes mellitus treated without insulin ([facility]) Type 2 diabetes mellitus without complication, without long-term current use of insulin ([facility]) Lumbar post-laminectomy syndrome Postlaminectomy syndrome, lumbar region [facility] Diagnosis Lumbar post-laminectomy syndrome- Primary Postlaminectomy syndrome, lumbar region Disc displacement, lumbar Displacement of lumbar intervertebral disc without myelopathy Lumbar post-laminectomy syndrome Postlaminectomy syndrome, lumbar region [facility]* Diagnosis Type 2 diabetes mellitus without complication, without long-term current use of insulin ([facility])- Primary Parkinson's disease ([facility]) Schizoaffective disorder, depressive type ([facility]) Schizoaffective disorder, unspecified condition Seizure disorder ([facility]) Unspecified epilepsy without mention of intractable epilepsy [facility] Diagnosis Spinal stenosis of lumbar region with neurogenic claudication- Primary [facility] Diagnosis Disc displacement, lumbar- Primary Displacement of lumbar intervertebral disc without myelopathy [facility] Diagnosis Disc displacement, lumbar Displacement of lumbar intervertebral disc without myelopathy [facility] Diagnosis Disc displacement, lumbar Displacement of lumbar intervertebral disc without myelopathy [facility] Diagnosis Lumbar post-laminectomy syndrome- Primary Postlaminectomy syndrome, lumbar region Spinal stenosis of lumbar region with neurogenic claudication [facility] Diagnosis MARK (obstructive sleep apnea)- Primary Obstructive sleep apnea (adult) (pediatric) Primary cough headache Episodic tension-type headache, not intractable Tobacco use [facility] Diagnosis Postlaminectomy syndrome of lumbar region- Primary Postlaminectomy syndrome, lumbar region [facility] Diagnosis Disc displacement, lumbar Displacement of lumbar intervertebral disc without myelopathy [facility] Diagnosis Dysuria- Primary [facility] Diagnosis Prophylactic antibiotic- Primary Encounter for long-term (current) use of antibiotics [facility] Diagnosis Postlaminectomy syndrome of lumbar region- Primary Postlaminectomy syndrome, lumbar region [facility] Diagnosis Disc displacement, lumbar- Primary Displacement of lumbar intervertebral disc without myelopathy Type 2 diabetes mellitus without complication, without long-term current use of insulin ([facility]) Obesity, morbid ([facility]) Morbid obesity Hypercholesteremia Pure hypercholesterolemia Immunization counseling Encounter for immunization [facility] Diagnosis Disc displacement, lumbar Displacement of lumbar intervertebral disc without myelopathy [facility] Diagnosis Lumbar post-laminectomy syndrome- Primary Postlaminectomy syndrome, lumbar region [facility]* Diagnosis Hypertriglyceridemia Pure hyperglyceridemia [facility]* Diagnosis Disc displacement, lumbar Displacement of lumbar intervertebral disc without myelopathy [facility]* Diagnosis Parkinson's disease ([facility])- Primary Type 2 diabetes mellitus treated without insulin ([facility]) Type 2 diabetes mellitus without complication, without long-term current use of insulin ([facility]) [facility] Diagnosis Parkinson's disease (CMS-HCC)- Primary Type 2 diabetes mellitus treated without insulin ([facility]) Chronic GERD Seasonal allergies Allergic rhinitis, cause unspecified Left shoulder pain, unspecified chronicity [facility] Diagnosis Left shoulder pain, unspecified chronicity Left shoulder pain, unspecified chronicity [facility] Diagnosis Lumbar post-laminectomy syndrome- Primary Postlaminectomy syndrome, lumbar region [facility] filedocumented in this [facility] filedocumented in this [facility]ed in this [facility] on filedocumented in this encounter [facility] on filedocumented in this encounter [facility] on filedocumented in this encounter [facility] on filedocumented in this encounter [facility] on filedocumented in this encounter [facility] on filedocumented in this encounter [facility] on filedocumented in this encounter [facility] on filedocumented in this encounter [facility] on filedocumented in this encounter [facility] on filedocumented in this encounter [facility] on filedocumented in this encounter [facility] on filedocumented in this encounter [facility] on filedocumented in this encounter [facility]ructionsNot on filedocumented in this encounter [facility]ructionsNot on filedocumented in this encounter [facility] System[facility] for referral (narrative)* Consultation (Routine) - Pending Review Specialty Diagnoses / Procedures Referred By Shen rey Referred To Contact Sleep Medicine / Pulmonary Medicine Diagnoses MARK (obstructive sleep apnea) Justin Underwood MD [address], [place] [address] Angelina Devlin DO [address] [place] [address] Referral ID Status Reason Start Date Expiration Date Visits Requested Visits Authorized [id number] Pending Review Specialty Services Required 03/09/2024 03/09/2025 1 1 [facility] Summary Purpose Family History No Family History Records FoundNo Family History Records FoundNo Family History Records FoundNo Family History Records FoundNo Family History Records FoundNo Family History Records FoundNo Family History Records FoundNo Family History Records FoundNo Family History Records FoundNo Family History Records FoundNo Family History Records Found Advance Directives No Advanced Directives Records FoundNo Advanced Directives Records FoundNo Advanced Directives Records FoundNo Advanced Directives Records FoundNo Advanced Directives Records FoundNo Advanced Directives Records FoundNo Advanced Directives Records FoundNo Advanced Directives Records FoundNo Advanced Directives Records FoundNo Advanced Directives Records FoundNo Advanced Directives Records Found Reason for Referral Specialty Diagnoses / Procedures Referred By Contac t Referred To Contact Diagnoses Lumbar post-laminectomy syndrome Procedures Case request operating room: INSERTION STIMULATOR SPINAL CORD-TRIAL Guillaume Steve, PA [address], [address] [place] [id number] Referral ID Status Reason Start Date Expiration Date V isits Requested Visits Authorized [id number] Pending Review 01/02/2024 01/01/2025 1 1 Specialty Diagnoses / Procedures Referred By Contac t Referred To Contact Diagnoses Spinal stenosis of lumbar region with neurogenic claudication Procedures Case request operating room: INJECTION SPINE TRANSFORAMINAL: right L12 Guillaume Steve, PA [address], [address] [place] [id number] Referral ID Status Reason Start Date Expiration Date V isits Requested Visits Authorized [id number] Pending Review 09/03/2023 09/02/2024 1 1 Specialty Diagnoses / Procedures Referred By Contac t Referred To Contact Diagnoses Disc displacement, lumbar Procedures Disability/Handicap Justin Edwards MD [address], [place] [address] Referral ID Status Reason Start Date Expiration Date V isits Requested Visits Authorized [id number] Pending Review 10/14/2023 10/13/2024 1 1 Specialty Diagnoses / Procedures Referred By Contac t Referred To Contact Diagnoses Postlaminectomy syndrome of lumbar region Procedures Case request operating room: INSERTION STIMULATOR SPINAL CORD Guillaume Steve PA [address] [place] [address] Referral ID Status Reason Start Date Expiration Date V isits Requested Visits Authorized [id number] Pending Review 03/12/2024 03/12/2025 1 1 Additional Source Comments (unrecognized sect ion and content) No Status Records FoundNo Status Records FoundNo Status Records FoundNo Status Records FoundNo Status Records FoundNo Status Records FoundNo Status Records FoundNo Status Records FoundNo Status Records FoundNo Status Records FoundNo Status Records Found INFORMATION SOURCE (unrecogn ized section and content) DATE CREATED AUTHOR 01/14/2018 [facility] DATE CREATED AUTHOR AUTHOR'S ORGANIZ ATION 01/15/2018 [facility] DATE CREATED AUTHOR AUTHOR'S ORGANIZ ATION 11/23/2020 [facility] DATE CREATED AUTHOR AUTHOR'S ORGANIZ ATION 11/02/2021 [facility] DATE CREATED AUTHOR AUTHOR'S ORGANIZ ATION 12/23/2021 [facility] DATE CREATED AUTHOR AUTHOR'S ORGANIZ ATION 11/17/2022 [facility] DATE CREATED AUTHOR AUTHOR'S ORGANIZ ATION 10/11/2023 [facility] DATE CREATED AUTHOR AUTHOR'S ORGANIZ ATION 02/06/2024 [facility] DATE CREATED AUTHOR AUTHOR'S ORGANIZ ATION 03/18/2024 [facility] DATE CREATED AUTHOR AUTHOR'S ORGANIZ ATION 05/13/2024 [facility] DATE CREATED AUTHOR AUTHOR'S ORGANIZ ATION 09/21/2024 [facility] Care Teams (unrecognized sec tion and content) [employer] Operator Helper Relationship Specialty Start Date End Date Justin Underwood MD [address] [place], [place] [id number] PCP - General Family Medicine 08/29/23 [employer] Helper Relationship Specialty Start Date End Date Justin Underwood MD [address], [place] [address] PCP - General Family Medicine 08/29/23 [employer] Helper Relationship Specialty Start Date End Date Justin Underwood MD [address], [place] [address] PCP - General Internal Medicine 01/26/24 [facility] Nurse - [employer] 12/17/23 [employer] Helper Relationship Specialty Start Date End Date Justin Underwood MD [address], [place] [address] PCP - General Internal Medicine 01/26/24 [facility] Nurse - [employer] 12/17/23 [employer] Helper Relationship Specialty Start Date End Date Justin Underwood MD [address], [place] [address] PCP - General Internal Medicine 01/26/24 [facility] Nurse - [employer] 12/17/23 [employer] Helper Relationship Specialty Start Date End Date Justin Underwood MD [address], [place] [address] PCP - General Internal Medicine 03/04/23 [employer] Helper Relationship Specialty Start Date End Date Justin Underwood MD [address], [place] [address] PCP - General Internal Medicine 03/04/23 [employer] Helper Relationship Specialty Start Date End Date Justin Underwood MD [address] [place] [address] PCP - General Internal Medicine 03/04/23 [employer] Helper Relationship Specialty Start Date End Date Justin Underwood MD [address] [place] [address] PCP - General Internal Medicine 03/04/23 [employer] Helper Relationship Specialty Start Date End Date Justin Underwood MD [address] [place] [address] PCP - General Internal Medicine 03/04/23 [facility] Nurse - [employer] 12/17/23 [employer] Helper Relationship Specialty Start Date End Date Justin Underwood MD [address] [place] [address] PCP - General Internal Medicine 03/04/23 [employer] Helper Relationship Specialty Start Date End Date Justin Underwood MD [address] [place] [address] PCP - General Internal Medicine 03/04/23 [facility] Nurse - [employer] 12/17/23 [employer] Operator Helper Relationship Specialty Start Date End Date Justin Underwood MD [address] [place] [address] PCP - General Internal Medicine 03/04/23 [employer] Helper Relationship Specialty Start Date End Date Justin Underwood MD [address], [place] [address] PCP - General Internal Medicine 03/04/23 [facility] Nurse - [employer] 12/17/23 [employer] Operator Helper Relationship Specialty Start Date End Date Justin Underwood MD [address], [place] [address] PCP - General Internal Medicine 03/04/23 [employer] Operator Helper Relationship Specialty Start Date End Date Justin Underwood MD [address], [place] [address] PCP - General Internal Medicine 03/04/23 [facility] Nurse - [employer] 12/17/23 [employer] Operator Helper Relationship Specialty Start Date End Date Justin Underwood MD [address], [place] [address] PCP - General Internal Medicine 03/04/23 [employer] Operator Helper Relationship Specialty Start Date End Date Justin Underwood MD [address], [place] [address] PCP - General Internal Medicine 03/04/23 [facility] Nurse - [employer] 12/17/23 [employer] Operator Helper Relationship Specialty Start Date End Date Justin Underwood MD [address], [place] [address] PCP - General Internal Medicine 03/04/23 [facility] Nurse - [employer] 12/17/23 [employer] Operator Helper Relationship Specialty Start Date End Date Justin Underwood MD [address], [place] [address] PCP - General Internal Medicine 03/04/23 [employer] Helper Relationship Specialty Start Date End Date Justin Underwood MD [address], [place] [address] PCP - General Internal Medicine 01/26/24 [facility] Nurse [employer] 12/17/23 [employer] Operator Helper Relationship Specialty Start Date End Date Justin Underwood MD [address], [place] [address] PCP - General Internal Medicine 03/04/23 [employer] Operator Helper Relationship Specialty Start Date End Date Justin Underwood MD [address], [place] [address] PCP - General Internal Medicine 03/04/23 [employer] Relationship Specialty Start Date End Date Justin Underwood MD [address], [place] [address] PCP - General Internal Medicine 03/04/23 [employer] Relationship Specialty Start Date End Date Justin Underwood MD [address], [place] [address] PCP - General Internal Medicine 01/26/24 [facility] Nurse [employer] 12/17/23 [employer] Relationship Specialty Start Date End Date Justin Underwood MD [address], [place] [address] PCP - General Internal Medicine 03/04/23 [employer] Relationship Specialty Start Date End Date Justin Underwood MD [address], [place] [address] PCP - General Internal Medicine 03/04/23 [employer] Relationship Specialty Start Date End Date Justin Underwood MD [address], [place] [address] PCP - General Internal Medicine 03/04/23 [employer] Relationship Specialty Start Date End Date Justin Underwood MD [address], [place] [address] PCP - General Internal Medicine 01/26/24 [facility] Nurse - [employer] 12/17/23 [employer] Relationship Specialty Start Date End Date Justin Underwood MD [address], [place] [address] PCP - General Internal Medicine 01/26/24 [facility] Nurse - [employer] 12/17/23 [employer] Relationship Specialty Start Date End Date Justin Underwood MD [address], [place] [address] PCP - General Internal Medicine 01/26/24 [facility] Nurse - [employer] 12/17/23 [employer] Relationship Specialty Start Date End Date Justin Underwood MD [address], [place] [address] PCP - General Internal Medicine 01/26/24 [facility] Nurse - [employer] 12/17/23 [employer] Relationship Specialty Start Date End Date Justin Underwood MD [address], [place] [address] PCP - General Internal Medicine 01/26/24 [facility] Nurse - [employer] 12/17/23 [employer] Relationship Specialty Start Date End Date Justin Underwood MD [address], [place] [address] PCP - General Internal Medicine 01/26/24 [facility] Nurse - [employer] 12/17/23 [employer] Relationship Specialty Start Date End Date Justin Underwood MD [address], [place] [address] PCP - General Internal Medicine 01/26/24 [facility] Nurse - [employer] 12/17/23 [employer] Relationship Specialty Start Date End Date Justin Underwood MD [address], [place] [address] PCP - General Internal Medicine 01/26/24 [facility] Nurse - [employer] 12/17/23 [employer] Relationship Specialty Start Date End Date Justin Underwood MD [address], [place] [address] PCP - General Internal Medicine 01/26/24 [facility] Nurse - [employer] 12/17/23 [employer] Relationship Specialty Start Date End Date Justin Underwood MD [address], [place] [address] PCP - General Internal Medicine 01/26/24 [facility] Nurse - [employer] 12/17/23 [employer] Relationship Specialty Start Date End Date Justin Underwood MD [address], [place] [address] PCP - General Internal Medicine 01/26/24 [facility] 12/17/23 [employer] Relationship Specialty Start Date End Date Justin Underwood MD [address], [place], [place] [id number] PCP - General Internal Medicine 01/26/24 [facility] Nurse - [employer] 12/17/23 Reason for Visit (unrecogniz ed section and content) Reason Comments DM Foot Care Reason Onset Date Comments Med Refill 07/24/2024 Reason Onset Date Comments SCS Battery Revision 07/24/2024 Reason Onset Date Comments Med Refill 11/06/2023 Reason Onset Date Comments Med Refill 07/27/2023 Reason Onset Date Comments Med Refill 08/15/2023 Reason Comments Back Pain Reason Onset Date Comments Med Refill 08/22/2023 Reason Comments medication Reason Comments Back Pain Reason Onset Date Comments Er Follow-up 10/14/2023 Reason Onset Date Comments Med Refill 02/27/2024 Reason Onset Date Comments Med Refill 10/23/2023 Reason Comments Annual Exam MAW Reason Onset Date Comments Er Follow-up 03/27/2024 Reason Comments Hypertension Does check at home e very morning. Been good. Reason Onset Date Comments Med Refill 06/12/2024 Reason Comments Back Pain Shoulder Pain Left FOR RECORDS PERTAINING TO PATIENTS WHO ARE OR HAVE BEEN ENROLLED IN A CHEMICAL DEPENDENCY/SUBSTANCEABUSE PROGRAM, SOME INFORMATION MAY BE OMITTED. This clinical summary was aggregated from multiple sources. Caution should be exercised in using it in the provision of clinical care. This summary normalizes information from multiple sources, and as a consequence, information in this document may materially change the coding, format and clinical context of patient data. In addition, data may be omitted in some cases. CLINICAL DECISIONS SHOULD BE BASED ON THE PRIMARY CLINICAL RECORDS. [facility] [employer] [facility]. provides no warranty or guarantee of the accuracy or completeness of information in this document.
--- NOTE | 2024-09-25 20:57 | ED.GENADUL1 ---
HPI HPI - General Adult General Chief complaint: Headache Stated complaint: headache Time Seen by Provider: 09/25/24 20:36 Source: patient Mode of arrival: walk-in Limitations: no limitations History of Present Illness HPI narrative: cc = headache Has a history of migraines and now presents with headache that is bifrontal in nature, radiating into the temples and the occiput. He has associated nausea and is vomited twice. He describes photophobia and a vague sensation of visual aura at the onset of the headache, which started about a week ago and has steadily worsened. He does not describe his worst headache of his life. He rates it as 6 out of 10 at this time. It was not explosive or sudden in nature. He called his primary care physician's office around 10 AM this morning and they told him to go to the emergency department. He wanted to wait to see to continue to worsen or if it would stop on its own. When it did not stop he came to be evaluated. Related Data Home Medications ?Medication ?Instructions ?Recorded ?Confirmed aspirin 81 mg tablet,delayed 81 mg PO DAILY 02/11/24 02/11/24 release benztropine 1 mg tablet 1 mg PO BID 02/11/24 02/11/24 cetirizine 10 mg tablet 10 mg PO DAILY 02/11/24 02/11/24 divalproex 500 mg tablet,delayed 500 mg PO Q12H 02/11/24 02/11/24 release fenofibrate 54 mg tablet 54 mg PO DAILY 02/11/24 02/11/24 fluticasone propionate 50 2 spray intranasal DAILY 02/11/24 02/11/24 mcg/actuation nasal spray,suspension gabapentin 600 mg tablet 600 mg PO Q8H 02/11/24 02/11/24 metformin 500 mg tablet,extended 500 mg PO BID 02/11/24 02/11/24 release 24 hr metoprolol succinate 50 mg 75 mg PO DAILY 02/11/24 02/11/24 tablet,extended release 24 hr montelukast 10 mg tablet 10 mg PO .hs 02/11/24 02/11/24 omeprazole 20 mg capsule,delayed 20 mg PO BID 02/11/24 02/11/24 release paliperidone 3 mg tablet,extended 3 mg PO DAILY 02/11/24 02/11/24 release 24 hr quetiapine 25 mg tablet 50 mg PO .hs 02/11/24 02/11/24 quetiapine 300 mg tablet 300 mg PO . 02/11/24 02/11/24 sertraline 100 mg tablet 100 mg PO DAILY 02/11/24 02/11/24 simvastatin 20 mg tablet 20 mg PO . 02/11/24 02/11/24 Previous Rx's ?Medication ?Instructions ?Recorded methylprednisolone 4 mg tablets in 4 mg PO DAILY #21 ea 08/22/24 a dose pack (Medrol (Oli)) Allergies Allergy/AdvReac Type Severity Reaction Status Date / Time Penicillins Allergy Mild Rash Verified 09/25/24 19:38 Sulfa (Sulfonamide Allergy Mild Rash Verified 09/25/24 19:38 Antibiotics) Opioid HPI Opioid Management Most Recent Opioid Data: Last Pain Scale 8 09/25/24 21:28 09/25/24 PFSH PFSH Social History Little interest or pleasure in doing things: not at all Feeling down, depressed, or hopeless: not at all Exam Narrative Exam Narrative: Nurses notes and vital signs reviewed and patient is not hypoxic. afebrile General: Well-appearing and in no apparent distress. Pleasant and interactive Skin: Warm, dry, no pallor noted. No rash. Head: Normocephalic, atraumatic. Neck: Supple, non-tender. No cervical lymphadenopathy. No meningismus Eye: Pupils are equal, round and EOMI. No scleral icterus. Ears, Nose, Mouth, and Throat: TM are clear, no posterior oropharynx erythema or nasal mucosal hypertrophy, uvula is mid-line Oral mucosa is moist Cardiovascular: Tachycardia 100 bpm on examination. Respiratory: No accessory muscle use or respiratory distress. Lungs are clear to auscultation, no wheezing, rales or rhonchi Chest Wall: no tenderness Musculoskeletal: normal RO Neurological: A&O x4. No cranial nerve dysfunction observed. No truncal ataxia. Moves all extremities. Sensation intact. Psychiatric: Cooperative and interactive. Normal mood and affect. Constitutional Vital Signs, click to edit/add: Last Vital Signs Temp 98.5 F 09/25/24 19:38 Pulse 103 H 09/25/24 19:38 Resp 16 09/25/24 19:38 BP 110/89 09/25/24 19:38 Pulse Ox 98 09/25/24 19:38 O2 Del Method Room Air 09/25/24 19:38 Course Vital Signs Vital signs: Vital Signs Temperature 98.5 F 09/25/24 19:38 Pulse Rate 103 H 09/25/24 19:38 Respiratory Rate 16 09/25/24 19:38 Blood Pressure 110/89 09/25/24 19:38 Pulse Oximetry 98 09/25/24 19:38 Oxygen Delivery Method Room Air 09/25/24 19:38 Temperature 98.5 F 09/25/24 19:38 Pulse Rate 103 H 09/25/24 19:38 Respiratory Rate 16 09/25/24 19:38 Blood Pressure 110/89 09/25/24 19:38 Pulse Oximetry 98 09/25/24 19:38 Oxygen Delivery Method Room Air 09/25/24 19:38 Medical Decision Making MDM Narrative Medical decision making narrative: Patient presents with symptoms suggestive of acute migraine cephalgia. He says this is his typical presentation. Peripheral IV was ordered to be established with the patient ordered to receive IV Toradol, IV Zofran and IV Benadryl. Pt felt better and was discharged home. PCP follow up as needed or ED return if he worsens. Discharge Plan Discharge Chief Complaint: Headache Clinical Impression: Migraine Patient Disposition: Home, Self-Care Time of Disposition Decision: 21:39 Prescriptions / Home Meds: No Action methylprednisolone [Medrol (Oli)] 4 mg tablets,dose pack 4 mg PO DAILY Qty: 21 0RF Rx Instructions: take as directed aspirin 81 mg tablet,delayed release (DR/EC) 81 mg PO DAILY benztropine 1 mg tablet 1 mg PO BID cetirizine 10 mg tablet 10 mg PO DAILY divalproex 500 mg tablet,delayed release (DR/EC) 500 mg PO Q12H fenofibrate 54 mg tablet 54 mg PO DAILY fluticasone propionate 50 mcg/actuation spray,suspension 2 spray INTRANASAL DAILY gabapentin 600 mg tablet 600 mg PO Q8H metformin 500 mg tablet extended release 24 hr 500 mg PO BID metoprolol succinate 50 mg tablet extended release 24 hr 75 mg PO DAILY montelukast 10 mg tablet 10 mg PO .hs omeprazole 20 mg capsule,delayed release(DR/EC) 20 mg PO BID paliperidone 3 mg tablet extended release 24 hr 3 mg PO DAILY quetiapine 25 mg tablet 50 mg PO .hs quetiapine 300 mg tablet 300 mg PO .hs sertraline 100 mg tablet 100 mg PO DAILY simvastatin 20 mg tablet 20 mg PO .hs Print Language: [place] Timorese Instructions: Migraine Headache (ED) Referrals: Reina Underwood ND [Primary Care Provider] - 1 week
[2024-09-25] MEDS: DIPHENHYDRAMINE HCL 50 MG/ML VIAL 25 MG IVP (21:28)
[2024-09-25] MEDS: ONDANSETRON PF 4 MG/2 ML VIAL 8 MG IV (21:28)
[2024-09-25] MEDS: KETOROLAC TROMETHAMINE 30 MG/ML VIAL IVP (21:28)
[2024-09-25 22:04] VITALS: BP 108/82; PULSE 98; O2SAT 95
[2024-09-25] MEDS: METHYLPREDNISOLONE SOD SUCC PF 125 MG/2 ML VIAL IVP (22:30)
[2024-09-25] MEDS: PROMETHAZINE HCL 12.5 MG in 0.9 % SODIUM CHLORIDE 50 ML 202 MG IV (22:30)
[2024-09-26] MEDS: HYDROMORPHONE HCL 1 MG/ML CARTRIDGE IVP (00:02)
== END 2024-09-26 00:15 | disposition home or self-care (01) ==
PROVIDERS: Emergency Provider Emergency Medicine; PCP Student in an Organized Health Care Education/Training Program
DX: G43.909 Migraine, unspecified, not intractable, without status migrainosus (principal)
CPT/HCPCS: 70450; 96374; 96375; 99285; J1171; J1200; J1885; J2405; J2550; J2919

== ENCOUNTER 2024-10-06 19:32 | Emergency (ER) | payer MEDICARE, MEDICAID, SELFPAY ==
[2024-10-06 19:37] VITALS: BP 146/93; PULSE 117; TEMP 36.6; O2SAT 99; BMI 31.3
--- OUTSIDE RECORDS SUMMARY | 2024-10-06 19:38 | XMS_ITS | CCD ---
Author Organization [facility] CliniSysd Care Team Providers Care Aircraft Dispatcher Name Role Phone Provider, None Unavailable Unavailable Saeed Carolyn Unavailable Unavailable Saeed Carolyn Unavailable Unavailable THUMPAMELLA MELÉNDEZHEETH Admitting Unavaila PAMELLA DelatorreHEETH Attending Unavaila ARCELIA Mauricio Referring Unavailable [facility] Primary Care Unavailable SELF, REFERRED Referring Unavailable [facility] Primary Care Unavailable KATHERINE WHITTEN Admitting Unavailable KATHERINE WHITTEN Attending Unavailable SELF, REFERRED Referring Unavailable [facility] Primary Care Unavailable LAXMI COOPER Attending Unavailable STEENHOFF, LAXMI Admitting Unavailable SELF, REFERRED Referring Unavailable [facility] Primary Care Unavailable TITUS GARCIA Admitting Unavailable TITUS GARCIA Attending Unavailable SELF, REFERRED Referring Unavailable [facility] Primary Care Unavailable YORDAN CROWLEY Attending Unavailable STEORTIZ, LAXMI Admitting Unavailable [facility] Primary Care [facility] Referring Unavailable Ovitt, Enedina Admitting Unavailable Ovitt, Enedina Attending Unavailable [facility] Primary Care Unavailable GLORIA WASHINGTON Attending Unavailable [...] BEST Consulting Unavailable TYLOR BEST Admitting Unavailable Justin Underwood MD Primary Care Provider OVITT, ENEDINA Referring Unavailable [...] Unavailable Kj Justin BAUTISTA Primary Care Provider Kj Justin BAUTISTA Primary Care Provider GUILLAUME STEVE Attending Unavailable KJ, MUHAMID M [...] Unavailable KJ, MUHAMID M Primary Care Unavailable RAND RECINOS Attending Unavailable KJ, MUHAMID M Referring Unavailable KJ, MUHAMID M Primary Care Unavailable Allergies Allergy Classification Reported Allergen(s) Allergy Type Date of Onset Reaction(s) Facility (20 sources) Penicillins; Translations: [penicillins] Propensity to adverse reactions to drug (disorder) 0 Hives, Other, Unknown [facility] Repository (1 source) Sulfonamides (Antibiotic); Translations: [sulfa drugs] Propensity to adverse reactions to drug (disorder) [facility] Repository (20 sources) Sulfonamides (Antibiotic); Translations: [Sulfa (Sulfonamide Antibiotics)] Propensity to adverse reactions (disorder) 0 [facility] Repository (1 source) Sulfonamides (Antibiotic) Drug Allergy [...] as needed for pain or headaches. Active [id number] 200 actuat albuterol 0.09 mg/actuat metered dose [...] / phenylephrine hydrochloride 0.0025 mg/mg rectal suppository (14 sources) alpha-1 Adrenergic Agonist Start: 06-30-2024 phenylephrine [...] (20 sources) Anti-epileptic Agent Start: 12-19-2023 End: 09-28-2024 take 1 tablet by mouth in the morning, then take 1 tablet by mouth at bedtime gabapentin (NEURONTIN) 600 mg tablet Indications: Disc displacement, lumbar Take 1 tablet (600 mg total) by mouth in the morning and 1 tablet (600 mg total) before bedtime. 60 tablet 09/28/2024 Active Start: 07-29-2023 End: 12-11-2023 take 1 [...] 90 tablet 0 06/26/2023 07/27/2023 Discontinued (Reorder) ibuprofen 600 mg oral tablet (1 source) Nonsteroidal Anti-inflammatory Drug Start: 10-02-2024 End: 10-12-2024 take 1 tablet by mouth every eight hours as needed for headache ibuprofen (MOTRIN) 600 mg tablet Indications: Trapezius muscle strain, left, initial encounter Take 1 tablet (600 mg total) by mouth every 8 (eight) hours as needed for headaches for up to 10 days. 30 tablet 10/02/2024 10/12/2024 Active ketoconazole 20 mg/ml medicated shampoo (20 sources) Azole Antifungal ketoconazole (NIZORAL) 2 % shampoo Apply 1 Application topically 2 (two) times a week. Apply to damp skin, lather, leave on 5 minutes, and rinse Active levoFLOXacin 500 mg oral tablet (3 sources) Quinolone Antimicrobial Start: 08-07-2024 End: 08-12-2024 take 1 tablet by mouth in the [...] complication, without long-term current use of insulin ([facility]) Inject 0.3 mL (1.8 mg total) under the skin in the morning. 9 mL 3 06/29/2024 Active Start: 06-26-2023 End: 07-27-2023 liraglutide (VICTOZA 3-NITESH) 0.6 mg/0.1 mL (18 mg/3 mL) pen injector Indications: Type 2 diabetes mellitus without complication, without long-term current use of insulin ([facility]) Inject 0.3 mL (1.8 mg total) under [...] release oral tablet (20 sources) Biguanide Start: End: 5 take 1 tablet by mouth every twenty-four hours in the morning, then take 1 tablet by mouth at bedtime metFORMIN XR (GLUCOPHAGE XR) 500 mg 24 hr tablet Take 1 tablet (500 mg total) by mouth in the morning and 1 tablet (500 mg total) before bedtime. 180 tablet 3 09/28/2024 Active methocarbamol 500 mg oral tablet (20 sources) Muscle Relaxant Start: 4 End: 4 methocarbamoL (ROBAXIN) 500 mg tablet Take 1 [...] sources) Leukotriene Receptor Antagonist Start: 07-29-2023 End: 09-28-2024 take 1 tablet by mouth once daily montelukast (SINGULAIR) 10 mg tablet Take 1 tablet (10 mg total) by mouth nightly. 90 tablet 09/28/2024 Active Start: 04-19-2023 End: 07-27-2023 take 1 [...] capsule (20 sources) Proton Pump Inhibitor Start: 10-02-2024 take 1 capsule by mouth once daily before breakfast omeprazole (PriLOSEC) 20 mg capsule Indications: Gastroesophageal reflux disease with esophagitis without hemorrhage Take 1 capsule (20 mg total) by mouth every morning before breakfast. 90 capsule 2 10/02/2024 Active Start: 07-29-2023 End: 10-02-2024 take 1 capsule by mouth twice daily as needed for pain omeprazole (PriLOSEC) 20 mg capsule Take 1 capsule (20 mg total) by mouth 2 (two) times a day as needed (pain). 90 capsule 2 09/28/2024 10/02/2024 Discontinued Start: 04-19-2023 End: 07-27-2023 take 1 capsule by mouth in the morning omeprazole (PriLOSEC) 20 mg capsule Take 1 capsule (20 mg total) by mouth in the morning. 90 capsule 0 04/19/2023 07/27/2023 Discontinued (Reorder) ondansetron 4 mg disintegrating oral tablet (20 [...] tablet (20 sources) HMG-CoA Reductase Inhibitor Start: 04-29-2023 End: 09-28-2024 take 1 tablet by mouth once daily simvastatin (ZOCOR) 20 mg tablet Take 1 tablet (20 mg total) by mouth nightly. 90 tablet 3 09/28/2024 Active sod ulgga-nqnemc-kvxuei bottle (NEILMED SINUS RINSE COMPLETE) packet with rinse device nasal solution (10 sources) Start: 07-30-2022 take 1 dose nasal route in the morning sod blahb-yvtidd-xnqji z bottle (NEILMED SINUS RINSE COMPLETE) packet with rinse device nasal solution Indications: Other chronic sinusitis Administer 1 packet into each nostril in the morning and 1 packet before bedtime. 60 packet 0 07/30/2022 Active traZODone hydrochloride 50 mg oral tablet (13 sources) Serotonin Reuptake Inhibitor Start: 07-07-2024 take 1 tablet by mouth once daily traZODone (DESYREL) 50 mg tablet Take 1 tablet (50 mg total) by mouth nightly. 07/07/2024 Active divalproex sodium 500 mg delayed release oral tablet (20 sources) Mood Stabilizer, Anti-epileptic Agent Start: 07-29-2023 End: 08-15-2023 take 1 [...] (1 source) Tetracycline-class Drug Start: 5 End: 5 take 1 capsule by mouth in the morning doxycycline (VIBRAMYCIN) 100 mg capsule Take 1 capsule (100 mg total) by mouth in the morning. 09/03/2024 09/13/2024 methylPREDNISolone (20 sources) Corticosteroid Start: 4 End: 4 methylPREDNISolone (MEDROL, NITESH,) 4 mg tablet follow [...] lipid metabolism (20 sources) Mixed hyperlipidemia; Translations: [Hyperlipidemia] Onset: 08-12-2020 08-12-2020 Chronic Disorders of teeth and jaw (4 sources) Other specified disorders of teeth and supporting structures; Translations: [Periapical abscess without sinus] Onset: 07-22-2023 Episodic Epilepsy; convulsions (20 sources) Epilepsy, unspecified, not intractable, without status epilepticus; Translations: [Seizure disorder] Onset: 07-02-2011 08-12-2020 Chronic Esophageal disorders (2 sources) Gastroesophageal reflux disease; Translations: [Gastro-esophageal reflux disease without esophagitis] 09-07-2024 Chronic Essential hypertension (20 sources) Essential (primary) hypertension; Translations: [Essential hypertension] Onset: 08-12-2020 Chronic Headache; including migraine (1 source) Episodic tension-type headache; Translations: [Episodic tension-type headache, not intractable] 03-09-2024 Chronic Headache; including migraine (5 sources) Cough headache syndrome; Translations: [Primary cough headache] Onset: 01-26-2024 08-15-2023 Episodic Impulse control disorders, NEC (1 source) Intermittent explosive disorder; Translations: [INTERMITTENT EXPLOSIVE DISORDER] Onset: 09-13-2022 Chronic Mood disorders (20 sources) Bipolar I disorder; Translations: [Bipolar disorder, unspecified] Onset: 01-17-2017 08-12-2020 Chronic Mycoses (1 source) Onychomycosis due to dermatophyte ; Translations: [Tinea unguium] 08-29-2023 Episodic Osteoarthritis (20 sources) Osteoarthritis; Translations: [Unspecified osteoarthritis, unspecified site] Onset: 07-02-2011 03-04-2023 Chronic Other aftercare (2 sources) Other group home (current) drug therapy; Translations: [OTH FITNESS SPECIALIST CURRENT DRUG THERAPY] Onset: 09-13-2022 Episodic Other [...] Episodic Other nutritional; endocrine; and metabolic disorders (20 sources) Morbid obesity; Translations: [Morbid (severe) obesity due to excess calories] Onset: 05-11-2024 05-11-2024 Chronic Other nutritional; endocrine; and metabolic disorders (1 source) Morbid (severe) obesity due to excess calories; Translations: [Morbid (severe) obesity due to excess calories] Onset: 05-11-2024 Chronic Other skin disorders (1 source) [...] Onset: 07-02-2011 03-04-2023 Chronic Residual codes; unclassified (20 sources) Hypersomnia; Translations: [Hypersomnia, unspecified] Onset: 08-12-2020 08-12-2020 Chronic Residual codes; unclassified (20 sources) Obstructive sleep apnea syndrome; Translations: [Obstructive sleep apnea (adult) (pediatric)] Onset: 07-02-2011 08-12-2020 Chronic Residual codes; unclassified (2 sources) Obstructive sleep apnea (adult) (pediatric); Translations: [Obstructive sleep apnea (adult) (pediatric)] Onset: 08-12-2020 Chronic Schizophrenia and other psychotic disorders (20 sources) Schizoaffective disorder, bipolar type; Translations: [Schizoaffective disorder, bipolar type] Onset: 2020 Chronic Spondylosis; intervertebral disc disorders; other back problems (20 sources) Spondylosis without myelopathy or radiculopathy, lumbar region; Translations: [Herniation of nucleus pulposus of lumbar intervertebral disc] Onset: 08-06-2011 Chronic Sprains and strains (3 sources) Strain of left trapezius muscle; Translations: [Strain of other muscles, fascia and tendons at shoulder and upper arm level, left arm, initial encounter] Onset: 10-02-2024 10-02-2024 Episodic Unclassified (1 source) Left shoulder pain, unspecified chronicity 09-08-2024 Unclassified (1 source) Encounter for immunization safety counseling; Translations: [Encounter for immunization safety counseling] Onset: 05-11-2024 Unclassified (1 source) Annual Exam Onset: 03-09-2024 Past or Other Problems Problem Classification Problem Date Documented Date Episodic/Chronic Cardiac dysrhythmias (20 sources) Tachycardia, unspecified; Translations: [Palpitations] Onset: 08-12-2020 Episodic Diabetes mellitus without complication (20 sources) Abnormal glucose level; Translations: [Other abnormal glucose] Onset: 07-02-2011 08-12-2020 Episodic Genitourinary symptoms and ill-defined conditions (1 source) Dysuria; Translations: [Dysuria] 04-02-2024 Episodic Hemorrhoids (20 sources) Hemorrhoids without complication; Translations: [Unspecified hemorrhoids] Onset: 08-12-2020 08-12-2020 Episodic Immunizations and screening for infectious disease (3 sources) Patient encounter status; Translations: [Encounter for immunization] Onset: 05-11-2024 05-11-2024 Episodic Mood disorders (20 sources) Mood disorders Onset: 03-09-2024 Resolved: 10-02-2024 03-09-2024 Nausea and vomiting (2 sources) Nausea with vomiting, unspecified; Translations: [Vomiting] Onset: 03-26-2024 Episodic Neoplasms of unspecified nature or uncertain behavior (20 sources) Neoplasm of uncertain behavior of skin; Translations: [Neoplasm of uncertain behavior of skin] Onset: 09-10-2012 08-12-2020 Episodic Other aftercare (1 source) Antibiotic prophylaxis indicated; Translations: [predatory animal exterminator (current) use of antibiotics] 04-03-2024 Episodic Other [...] 09-09 VALPROIC ACID 44 ug/mL Low 50-100 [facility] Comment on above: Performed By: #### 4 086-5 #### [facility] ([id number]) [address], [address] [place] [address] BASIC METABOLIC PANLon 07-30 Anion gap [Moles/Vol] 13 mmol/L Normal 5-15 [facility] Comment on above: Performed By: #### B MP #### [facility] ([id number]) [address], [address] [place] [address] Calcium [Mass/Vol] 10.8 mg/dL High 8.5-10.5 [facility] Comment on above: Performed By: #### B MP #### [facility] ([id number]) [address], [address] [place] [address] Chloride [Moles/Vol] 102 mmol/L Normal 98-109 [facility] Comment on above: Performed By: #### B MP #### [facility] ([id number]) [address], [address] [place] [address] CO2 [Moles/Vol] 29 mmol/L Normal 22-32 [facility] Comment on above: Performed By: #### B MP #### [facility] ([id number]) [address], [address] [place] [address] Creatinine [Mass/Vol] 0.96 mg/dL Normal 0.60-1.30 [facility] Comment on above: Result Comment: METH OD TRACEABLE TO IDMS STANDARD Performed By: #### B MP #### [facility] ([id number]) [address], [address] [place] [address] eGFR (CKD-EPI) NON-RACE DEPENDENT >90 Normal >59 [facility] Comment on above: Result Comment: Reported eGFR is based on the CKD-EPI 2020 equation that does not use a race coefficient. Performed By: #### B MP #### [facility] ([id number]) [address], [address] [place] [address] Glucose [Mass/Vol] 107 mg/dL High 65-99 [facility] Comment on above: Performed By: #### B MP #### [facility] ([id number]) [address] [place] [address] Potassium [Moles/Vol] 4.8 mmol/L Normal 3.5-5.0 [facility] Comment on above: Performed By: #### B MP #### [facility] ([id number]) [address], [address] [place] [address] Sodium [Moles/Vol] 144 mmol/L Normal 134-146 [facility] Comment on above: Performed By: #### B MP #### [facility] ([id number]) [address] [place] [address] Urea nitrogen [Mass/Vol] 9 mg/dL Normal 5-23 [facility] Comment on above: Performed By: #### B MP #### [facility] ([id number]) [address], [address] [place] [address] Basic Metabolic Panelon 0 Anion gap [Moles/Vol] 13 mmol/L 5 - 15 mmol/L [facility] Calcium [Mass/Vol] 10.8 mg/dL High 8.5 - 10. 5 mg/dL [facility] Chloride [Moles/Vol] 102 mmol/L 98 - 10 9 mmol/L [facility] CO2 [Moles/Vol] 29 mmol/L 22 - 32 mmol/L [facility] Creatinine [Mass/Vol] 0.96 mg/dL 0.60 - 1.30 mg/dL [facility] Comment on above: METHOD TRACEABLE TO IDMS STANDARD eGFR (CKD-EPI)non-race dependent - PINF [facility] Comment on above: Reported eGFR is based on the CKD-EPI 2020 equation that does not use a race coefficient. Glucose [Mass/Vol] 107 mg/dL High 65 - 99 mg/dL [facility] Interpretation and review of laboratory results Abnormal [facility] Potassium [Moles/Vol] 4.8 mmol/L 3.5 - 5.0 mmol/L [facility] Sodium [Moles/Vol] 144 mmol/L 134 - 146 mmol/L [facility] Urea nitrogen [Mass/Vol] 9 mg/dL 5 - 23 mg/dL [facility] CBC AND AUTO DIFFon 03-26-20 24 ABSOLUTE BASOPHIL 0.0 X10E9/L Normal 0.0-0.2 [facility] Comment on above: Performed By: #### Timmy YOUNGBLOOD CMP, 0-3 #### [facility] ([id number]) [address] [place] [address] ABSOLUTE NEUTROPHIL 4.9 X10E9/L Normal 1.5-6.6 [facility] Comment on above: Performed By: #### Timmy YOUNGBLOOD CMP, 3039-3 #### [facility] ([id number]) [address] [place] [address] Basophils/100 WBC (Bld) 0.6 % Normal [facility] Comment on above: Performed By: #### Timmy YOUNGBLOOD CMP, 3039-3 #### [facility] ([id number]) [address] [place] [address] Eosinophils (Bld) [#/Vol] 0.1 10*3/uL Normal 0.0-0.4 [facility] Comment on above: Performed By: #### Timmy YOUNGBLOOD CMP, 3039-3 #### [facility] ([id number]) [address] [place] [address] Eosinophils/100 WBC (Bld) 0.8 % Normal [facility] Comment on above: Performed By: #### Timmy YOUNGBLOOD CMP, 3039-3 #### [facility] ([id number]) [address] [place] [address] Erythrocyte distribution width (RBC) [Ratio] 14.7 % Normal 11.5-15.0 [facility] Comment on above: Performed By: #### Timmy YOUNGBLOOD CMP, 3039-3 #### [facility] ([id number]) [address] [place] [address], [place] [address] Hematocrit (Bld) [Volume fraction] 48.3 % Normal 39-49 [facility] Comment on above: Performed By: #### Timmy YOUNGBLOOD CMP, 3 #### [facility] ([id number]) [address] [place] [address] Hemoglobin (Bld) [Mass/Vol] 16.3 g/dL Normal 13.0-17.0 [facility] Comment on above: Performed By: #### Timmy YOUNGBLOOD CMP, 3039-09 #### [facility] ([id number]) [address] [place] [address] Lymphocytes (Bld) [#/Vol] 1.7 10*3/uL Normal 1.0-3.5 [facility] Comment on above: Performed By: #### Timmy YOUNGBLOOD CMP, 3039-09 #### [facility] ([id number]) [address] [place] [address] Lymphocytes/100 WBC (Bld) 22.7 % Normal [facility] Comment on above: Performed By: #### Timmy YOUNGBLOOD [facility], 3039-09 #### [facility] ([id number]) [address] [place] [address]35[address] MCH (RBC) [Entitic mass] 27.9 pg Normal 27-34 [facility] Comment on above: Performed By: #### Timmy YOUNGBLOOD CMP, 3039-09 #### [facility] ([id number]) [address] [place] [address] MCHC (RBC) [Mass/Vol] 33.8 g/dL Normal 32-36 [facility] Comment on above: Performed By: #### Timmy YOUNGLBOOD CMP, 3 #### [facility] ([id number]) [address] [place] [address] 87196 MCV (RBC) [Entitic vol] 83 fL Normal 80-100 [facility] Comment on above: Performed By: #### Timmy YOUNGBLOOD, CMP, 3039-3 #### [facility] ([id number]) [address] [place] [address]301 Monocytes (Bld) [#/Vol] 0.7 10*3/uL Normal 0-0.9 [facility] Comment on above: Performed By: #### Timmy YOUNGBLOOD, CMP, 3039-3 #### [facility] ([id number]) [address] [place] [address] 52898 Monocytes/100 WBC (Bld) 9.7 % Normal [facility] Comment on above: Performed By: #### Timmy YOUNGBLOOD, CMP, 3039-09 #### [facility] ([id number]) [address] [place] [address] 48186 Neutrophils/100 WBC (Bld) 66.2 % Normal [facility] Comment on above: Performed By: #### Timmy YOUNGBLOOD, CMP, 3039-09 #### [facility] ([id number]) [address] [place] [address] 57300 Platelet mean volume (Bld) [Entitic vol] 7.7 fL Normal 7-12 [facility] Comment on above: Performed By: #### Timmy YOUNGBLOOD, CMP, 3039-09 #### [facility] ([id number]) [address] [place] [address] 25352 Platelets (Bld) [#/Vol] 243 10*3/uL Normal 150-450 [facility] Comment on above: Performed By: #### Timmy YOUNGBLOOD, CMP, 3 #### [facility] ([id number]) [address] [place] [address] 34080 RBC COUNT 5.85 X10E12/L High 4.10-5.70 [facility] Comment on above: Performed By: #### Timmy YOUNGBLOOD, CMP, 3039-3 #### [facility] ([id number]) [address] [place] [address]65 WBC (Bld) [#/Vol] 7.5 10*3/uL Normal 4.0-11.0 [facility] Comment on above: Performed By: #### C RYLIE, CMP, 3040-3 #### [facility] ([id number]) [address] [place] [address] COMPREHENSIVE METABOLIC PANE Trey 03-26-2024 Albumin [Mass/Vol] 5.2 g/dL Normal 3.2-5.3 [facility] Comment on above: Performed By: #### Timmy YOUNGBLOOD, CMP, 3039-3 #### [facility] ([id number]) [address] [place] [address] 76423 ALP [Catalytic activity/Vol] 93 U/L Normal 39-130 [facility] Comment on above: Performed By: #### Timmy BCA, CMP, 3039-3 #### [facility] ([id number]) [address] [place] [address] 74815 ALT [Catalytic activity/Vol] 78 U/L High 0-40 [facility] Comment on above: Performed By: #### Timmy BCA, CMP, 3040-3 #### [facility] ([id number]) [address] [place] [address] 14842 Anion gap [Moles/Vol] 12 mmol/L Normal 5-15 [facility] Comment on above: Performed By: #### C BCA, CMP, 0-3 #### [facility] ([id number]) [address] [place] [address] 08634 AST [Catalytic activity/Vol] 64 U/L High 0-41 [facility] Comment on above: Performed By: #### Timmy BCA, CMP, 0-3 #### [facility] ([id number]) [address] [place] [address] [place] [address] Bilirubin [Mass/Vol] 0.7 mg/dL Normal 0.3-1.2 [facility] Comment on above: Performed By: #### C EDIE YOUNGBLOOD, 3040-3 #### [facility] ([id number]) [address] [place] [address]013 Calcium [Mass/Vol] 10.5 mg/dL Normal 8.5-10.5 [facility] Comment on above: Performed By: #### C EDIE YOUNGBLOOD, 3039-3 #### [facility] ([id number]) [address] [place] [address] 40841 Chloride [Moles/Vol] 99 mmol/L Normal 98-109 [facility] Comment on above: Performed By: #### Timmy YOUNGBLOOD CMP, 3039-3 #### [facility] ([id number]) [address] [place] [address] 27371 CO2 [Moles/Vol] 24 mmol/L Normal 22-32 [facility] Comment on above: Performed By: #### Timmy YOUNGBLOOD CMP, 3 #### [facility] ([id number]) [address] [place] [address] 97634 Creatinine [Mass/Vol] 0.93 mg/dL Normal 0.70-1.20 [facility] Comment on above: Result Comment: METH OD TRACEABLE TO IDMS STANDARD Performed By: #### C EDIE YOUNGBLOOD, 3039-3 #### [facility] ([id number]) [address] [place] [address] 28884 eGFR (CKD-EPI) NON-RACE DEPENDENT >90 Normal >59 [facility] Comment on above: Result Comment: Reported eGFR is based on the CKD-EPI 2020 equation that does not use a race coefficient. Performed By: #### C EDIE YOUNGBLOOD, 0-3 #### [facility] ([id number]) [address] [place] [address]39 Glucose [Mass/Vol] 126 mg/dL High 65-99 [facility] Comment on above: Performed By: #### Timmy YOUNGBLOOD [facility], 3040-3 #### [facility] ([id number]) [address] [place] [address] 48991 Potassium [Moles/Vol] 3.4 mmol/L Low 3.5-5.0 [facility] Comment on above: Performed By: #### Timmy YOUNGBLOOD [facility], 3040-3 #### [facility] ([id number]) [address] [place] [address] 17075 Protein [Mass/Vol] 9.3 g/dL High 6.0-8.0 [facility] Comment on above: Performed By: #### Timmy YOUNGBLOOD CMP, 3040-3 #### [facility] ([id number]) [address] [place] [address] 40421 Sodium [Moles/Vol] 135 mmol/L Normal 134-146 [facility] Comment on above: Performed By: #### Timmy YOUNGBLOOD [facility], 3040-3 #### [facility] ([id number]) [address] [place] [address] 41661 Urea nitrogen [Mass/Vol] 12 mg/dL Normal 5-23 [facility] Comment on above: Performed By: #### Timmy YOUNGBLOOD [facility], 3040-3 #### [facility] ([id number]) [address] [place] [address] ABDOMEN AND PELVIS W CONT on 03-26-2024 CT ABDOMEN AND PELVIS W CONT CT ABDOMEN AND PELVIS W CONT CT ABDOMEN AND PELVIS W CONT HISTORY: Abdominal pain, acute, nonlocalized COMPARISON STUDY: 03/10 of. TECHNIQUE: CT scan of the abdomen and [...] Javier Figueroa on 03/26/2024 2:13 PM Normal [facility] LIPASEon 03-26-2024 Lipase [Catalytic activity/Vol] 49 U/L High 17-40 [facility] Comment on above: Performed By: #### C [facility], [facility], 3040-3 #### [facility] ([id number]) [address] [place] [address], [place] [address] SARS/FLU A+B/RSV by NAAT/Mol ecularon 03-26-2024 SARS/FLU [...] operators who are performing tests using either [employer] DX or [employer] systems and is limited to laboratories that [...] specimen repeat. Fact Sheet for Healthcare Providers: https://www.fda.gov/ky anderson/235437/download Fact Sheet for Patients: https://www.fda.gov/me anderson/372490/download Normal [facility] Comment on above: Performed By: #### C OVFLR #### [facility] ([id number]) [address] [place] [address] 73699 URN MACROSCOPIC NURon 2023 BILIRUBIN ABDIRAHMAN Small Abnormal NEG [facility] Comment on above: Performed By: #### N UM #### [facility] ([id number]) [address] [place] [address] 24758 BLOOD/HGB ABDIRAHMAN Negative Normal NEG [facility] Comment on above: Performed By: #### N UM #### [facility] ([id number]) [address] [place] [address]34 GLUCOSE ABDIRAHMAN Negative Normal NEG [facility] Comment on above: Performed By: #### N UM #### [facility] ([id number]) [address] [place] [address] [place] [address] KETONES ABDIRAHMAN Trace Abnormal NEG [facility] Comment on above: Performed By: #### N UM #### [facility] ([id number]) [address] [place] [address] 12345 LEUKOCYTE ESTERASE ABDIRAHMAN Negative Normal NEG [facility] Comment on above: Performed By: #### N UM #### [facility] ([id number]) [address] [place] [address]46 NITRITE ABDIRAHMAN Negative Normal NEG [facility] Comment on above: Performed By: #### N UM #### [facility] ([id number]) [address] [place] [address]6496 PH ABDIRAHMAN 8.5 Normal 5.0-8.5 [facility] Comment on above: Performed By: #### N UM #### [facility] ([id number]) [address] [place] [address] 62270 PROTEIN ABDIRAHMAN 100 mg/dL Abnormal NEG [facility] Comment on above: Performed By: #### N UM #### [facility] ([id number]) [address] [place] [address] [place] [address] SPECIFIC GRAVITY ABDIRAHMAN 1.015 Normal 1.003-1.035 [facility] Comment on above: Performed By: #### N UM #### [facility] ([id number]) [address] [place] [address] [place] [address] UROBILINOGEN ABDIRAHMAN 1.0 eu/dL Normal <1.1 [facility] Comment on above: Performed By: #### N UM #### [facility] ([id number]) [address] [facility] [place] [address] Glucose Glucometer (BldC) [M ass/Vol]on 02-21-2024 Glucose [Mass/Vol] 114 mg/dL High 65-99 [facility] 36on 10-11-2023 36 Spoke with caregiver Marco Gomez regarding my conversation with Dr. Washington about Luis Alberto MRI lumbar spine results. Explained to Marco [...] ask for referral to another provider. Normal [facility] Telephoneon 10-11-2023 Telephone [id number] Laxmi Torres 1975 M Date Provider Department Center 10/11/2023 148LILLI [facility] SURG Second Fl Family History Adopted: Yes Normal [facility] Follow-Upon 10-10-2023 Follow-Up [id number] Laxmi Torres 1975 M [facility] Provider Department Center 10/10/2023 148LILLI [facility] SURG Second Fl Family History Adopted: Yes Level of Service:34118 UT OFFICE/OUTPATIENT ESTABLISHED MOD MDM 30 MIN Reason for Visit and Comments: Follow-up [[id number]] - Pt here to discuss Degenerative lumbar stenosis, pain been getting worse Normal [facility] CBC AND AUTO DIFFon 10-01-19 24 ABSOLUTE BASOPHIL 0.0 X10E9/L Normal 0.0-0.2 [facility] Comment on above: Performed By: #### Timmy YOUNGBLOOD CMP, 14055-0 #### [facility] ([id number]) [address] [place] [address] ABSOLUTE NEUTROPHIL 3.4 X10E9/L Normal 1.5-6.6 [facility] Comment on above: Performed By: #### Timmy YOUNGBLOOD CMP, 11902-8 #### [facility] ([id number]) [address] [place] [address] Basophils/100 WBC (Bld) 0.6 % Normal [facility] Comment on above: Performed By: #### Timmy YOUNGBLOOD CMP, 66551-5 #### [facility] ([id number]) [address] [place] [address] Eosinophils (Bld) [#/Vol] 0.3 10*3/uL Normal 0.0-0.4 [facility] Comment on above: Performed By: #### Timmy YOUNGBLOOD CMP, 36001-2 #### [facility] ([id number]) [address] [place] [address] Eosinophils/100 WBC (Bld) 4.0 % Normal [facility] Comment on above: Performed By: #### Timmy YOUNGBLOOD CMP, 29532-4 #### [facility] ([id number]) [address] [place] [address] Erythrocyte distribution width (RBC) [Ratio] 14.4 % Normal 11.5-15.0 [facility] Comment on above: Performed By: #### Timmy YOUNGBLOOD CMP, 02847-7 #### [facility] ([id number]) [address] [place] [address] Hematocrit (Bld) [Volume fraction] 43.7 % Normal 39-49 [facility] Comment on above: Performed By: #### Timmy YOUNGBLOOD CMP, 63956-5 #### [facility] ([id number]) [address] [place] [address] Hemoglobin (Bld) [Mass/Vol] 14.9 g/dL Normal 13.0-17.0 [facility] Comment on above: Performed By: #### Timmy YOUNGBLOOD CMP, 87262-2 #### [facility] ([id number]) [address], [facility] [[email or web address] [address] [place] [address] Lymphocytes (Bld) [#/Vol] 2.2 10*3/uL Normal 1.0-3.5 [facility] Comment on above: Performed By: #### Timmy YOUNGBLOOD CMP, 11680-2 #### [facility] ([id number]) [address], [facility] [[email or web address]] [address] [place] [address] Lymphocytes/100 WBC (Bld) 33.9 % Normal [facility] Comment on above: Performed By: #### Timmy YOUNGBLOOD CMP, 04008-6 #### [facility] ([id number]) [address] [place] [address] MCH (RBC) [Entitic mass] 27.9 pg Normal 27-34 [facility] Comment on above: Performed By: #### Timmy YOUNGBLOOD CMP, 98781-8 #### [facility] ([id number]) [address] [place] [address] MCHC (RBC) [Mass/Vol] 34.0 g/dL Normal 32-36 [facility] Comment on above: Performed By: #### Timmy YOUNGBLOOD CMP, 83183-4 #### [facility] ([id number]) [address] [place] [address] MCV (RBC) [Entitic vol] 82 fL Normal 80-100 [facility] Comment on above: Performed By: #### C RYLIE, CMP, 73929-5 #### [facility] ([id number]) [address] [place] [address] Monocytes (Bld) [#/Vol] 0.6 10*3/uL Normal 0-0.9 [facility] Comment on above: Performed By: #### C RYLIE, CMP, 52798-7 #### [facility] ([id number]) [address] [place] [address] Monocytes/100 WBC (Bld) 8.6 % Normal [facility] Comment on above: Performed By: #### Timmy YOUNGBLOOD CMP, 04544-2 #### [facility] ([id number]) [address] [place] [address] Neutrophils/100 WBC (Bld) 52.9 % Normal [facility] Comment on above: Performed By: #### Timmy YOUNGBLOOD, CMP, 51010-9 #### [facility] ([id number]) [address] [place] [address] Platelet mean volume (Bld) [Entitic vol] 8.0 fL Normal 7-12 [facility] Comment on above: Performed By: #### Timmy YOUNGBLOOD CMP, 84529-4 #### [facility] ([id number]) [address] [place] [address] Platelets (Bld) [#/Vol] 188 10*3/uL Normal 150-450 [facility] Comment on above: Performed By: #### Timmy YOUNGBLOOD, CMP, 74217-2 #### [facility] ([id number]) [address] [place] [address] RBC COUNT 5.33 X10E12/L Normal 4.10-5.70 [facility] Comment on above: Performed By: #### Timmy YOUNGBLOOD, CMP, 54881-3 #### [facility] ([id number]) [address] [place] [address] WBC (Bld) [#/Vol] 6.5 10*3/uL Normal 4.0-11.0 [facility] Comment on above: Performed By: #### C BCA, CMP, 44014-3 #### [facility] ([id number]) [address] [place] [address] COMPREHENSIVE METABOLIC PANE Trey 10-01-2023 Albumin [Mass/Vol] 4.8 g/dL Normal 3.2-5.3 [facility] Comment on above: Performed By: #### C BCA, CMP, 11442-6 #### [facility] ([id number]) [address] [place] [address] ALP [Catalytic activity/Vol] 120 U/L Normal 39-130 [facility] Comment on above: Performed By: #### C BCA, CMP, 85876-1 #### [facility] ([id number]) [address] [place] [address] ALT [Catalytic activity/Vol] 41 U/L High 0-40 [facility] Comment on above: Performed By: #### C BCA, CMP, 02555-8 #### [facility] ([id number]) [address] [place] [address] Anion gap [Moles/Vol] 13 mmol/L Normal 5-15 [facility] Comment on above: Performed By: #### C BCA, CMP, 83394-4 #### [facility] ([id number]) [address] [place] [address] AST [Catalytic activity/Vol] 29 U/L Normal 0-41 [facility] Comment on above: Performed By: #### C BCA, CMP, 45980-1 #### [facility] ([id number]) [address] [place] [address] Bilirubin [Mass/Vol] 0.4 mg/dL Normal 0.3-1.2 [facility] Comment on above: Performed By: #### C RYLIE, CMP, 31757-2 #### [facility] ([id number]) [address] [place] [address] Calcium [Mass/Vol] 10.3 mg/dL Normal 8.5-10.5 [facility] Comment on above: Performed By: #### C BCA, CMP, 80237-4 #### [facility] ([id number]) [address], [facility] [[email or web address]] [address] [place] [address] Chloride [Moles/Vol] 100 mmol/L Normal 98-109 [facility] Comment on above: Performed By: #### C RYLIE, CMP, 10622-5 #### [facility] ([id number]) [address] [place] [address] CO2 [Moles/Vol] 29 mmol/L Normal 22-32 [facility] Comment on above: Performed By: #### C RYLIE, CMP, 11363-8 #### [facility] ([id number]) [address] [address] [place] [address] Creatinine [Mass/Vol] 0.89 mg/dL Normal 0.60-1.30 [facility] Comment on above: Result Comment: METH OD TRACEABLE TO IDMS STANDARD Performed By: #### C BCA, CMP, 73921-9 #### [facility] ([id number]) [address] [address] [place] [address] eGFR (CKD-EPI) NON-RACE DEPENDENT >90 Normal >59 [facility] Comment on above: Result Comment: Reported eGFR is based on the CKD-EPI 2020 equation that does not use a race coefficient. Performed By: #### C BCA, CMP, 20671-0 #### [facility] ([id number]) [address] [place] [address] Glucose [Mass/Vol] 157 mg/dL High 65-99 [facility] Comment on above: Performed By: #### C RYLIE, CMP, 82493-6 #### [facility] ([id number]) [address] [place] [address] Potassium [Moles/Vol] 4.3 mmol/L Normal 3.5-5.0 [facility] Comment on above: Performed By: #### C RYLIE, CMP, 78550-7 #### [facility] ([id number]) [address] [place] [address] Protein [Mass/Vol] 7.9 g/dL Normal 6.0-8.0 [facility] Comment on above: Performed By: #### Timmy YOUNGBLOOD, CMP, 56881-6 #### [facility] ([id number]) [address] [place] [address] Sodium [Moles/Vol] 142 mmol/L Normal 134-146 [facility] Comment on above: Performed By: #### Timmy YOUNGBLOOD, CMP, 87049-4 #### [facility] ([id number]) [address] [place] [address] Urea nitrogen [Mass/Vol] 12 mg/dL Normal 5-23 [facility] Comment on above: Performed By: #### C BCA, CMP, 97968-2 #### [facility] ([id number]) [address] [place] [address] HGB A1C (GLYCO-HGB)on 2023 Glucose [Mass/Vol] 140 mg/dL Normal [facility] Comment on above: Performed By: #### C BCA, CMP, 67547-1 #### [facility] ([id number]) [address] [place] [address] HbA1c (Bld) [Mass fraction] 6.5 % High 4.4-5.6 [facility] Comment on above: Result Comment: NOTE ADA Guidelines Result HgbA1c Normal : less than 5.7 % Prediabetes : 5.7 % to 6.4 % Diabetes : > 6.4 % Use with caution in patients with abnormal hemoglobin variants as the half-life of red blood cells and in vivo glycation rates are affected. Performed By: #### C RYLIE, EDIE, 33329-2 #### [facility] ([id number]) [address] [facility] [place] [address] Lipid 1996 panelon 4 Cholesterol [Mass/Vol] 183 mg/dL Normal 150-200 [facility] Comment on above: Performed By: #### Timmy YOUNGBLOOD, EDIE, 53190-1 #### [facility] ([id number]) [address] [facility] [place] [address] Cholesterol in HDL [Mass/Vol] 31 mg/dL Low >39 [facility] Comment on above: Result Comment: HDL <40 mg/dL - High Risk HDL > or = 40mg/dL- Desirable HDL >60 mg/dL - Negative Risk Performed By: #### C BCA, CMP, 47866-6 #### [facility] ([id number]) [address] [facility] [place] [address] Cholesterol in LDL [Mass/Vol] 73 mg/dL Normal <130 [facility] Comment on above: Result Comment: LDL <100 mg/dL - Desirable LDL >160 mg/dL - High Risk Performed By: #### C BCA, CMP, 66680-4 #### [facility] ([id number]) [address] [place] [address] Cholesterol in VLDL [Mass/Vol] 79 mg/dL High 0-30 [facility] Comment on above: Performed By: #### C BCA, CMP, 57803-2 #### [facility] ([id number]) [address] [place] [address] CHOLESTEROL:HDL 5.9 High 1.0-5.0 [facility] Comment on above: Performed By: #### C BCA, CMP, 98963-6 #### [facility] ([id number]) [address] [place] [address] Triglyceride [Mass/Vol] 394 mg/dL High 27-150 [facility] Comment on above: Performed By: #### C BCA, CMP, 88768-4 #### [facility] ([id number]) [address] [place] [address] Office Visiton 09-24-2023 Follow-up visit [id number] Laxmi Torres 1975 M Date Provider Department Center 09/24/2023 FATUMA ANDERSON Family History Adopted: Yes Level of Service:16024 UT OFFICE/OUTPATIENT ESTABLISHED MOD MDM 30 MIN [facility] 36on 11-16-2022 36 Called and spoke venita Hanna the caregiver and advised he needed to speak with pain management. [facility] 36on 11-15-2022 36 Rogers is calling state s he had a conversation with [place] about a month ago about stimulator. Who does he discuss this with pain mgmt in [place] or [place]? [facility] GLYCOHEMOGLOBIN A1Con 2022 ADA RECOMMENDATION SEE BELOW Normal [facility] Comment on above: Result Comment: ADA RECOMMENDED LIMIT 4.0 - 6.0 ADA THERAPEUTIC TARGET < 7.0 ACTION SUGGESTED > 7.0 Performed By: #### Parish 1C #### [facility] [address] [address] [address] Beverly Kraft Glucose [Mass/Vol] 123 mg/dL Normal [facility] Comment on above: Performed By: #### A 1C #### [facility] [address] [place] [address] Dr. Beverly Kraft HbA1c (Bld) [Mass fraction] 5.9 % Normal 4.5-6.2 [facility] Comment on above: Performed By: #### A 1C #### [facility] [address] [place] [address] Dr. Beverly Kraft LIPID PROFILEon 11-10-2022 CHOL-HDL RATIO NORM SEE BELOW Normal [facility] Comment on above: Result Comment: 3.3 - 4.4 LOW RISK 4.4 - 7.1 AVERAGE RISK 7.1 - 11.0 MODERATE RISK >11.0 HIGH RISK Performed By: #### L IPID, BMP, AST, ALT #### [facility] [address] [place] [address] Dr. Beverly Kraft Cholesterol [Mass/Vol] 181 mg/dL Normal <=200 [facility] Comment on above: Performed By: #### L IPID, BMP, AST, ALT #### [facility] [address] [place] [address] Dr. Beverly Kraft Cholesterol in HDL [Mass/Vol] 34 mg/dL Critically low 40-60 [facility] Comment on above: Performed By: #### L IPID, BMP, AST, ALT #### [facility] [address] [address] [address] Beverly Kraft Cholesterol in LDL [Mass/Vol] 110.0 mg/dL Normal [facility] Comment on above: Performed By: #### L IPID, BMP, AST, ALT #### [facility] [address] [place] [address] Dr. Beverly Kraft Cholesterol.total/Ch olesterol in HDL [Mass ratio] 5.3 {ratio} Normal [facility] Comment on above: Performed By: #### L IPID, BMP, AST, ALT #### [facility] [address] [address] [address] Beverly Kraft HDL NORMAL > or = 60 mg/dl - LO W CARDIOVASCULAR RISK <40 mg/dl - HIGH CARDIOVASCULAR RISK Normal [facility] Comment on above: Performed By: #### L IPID, BMP, AST, ALT #### [facility] [address] [address] [address] Beverly Kraft LDL CALC NORMAL SEE BELOW Normal [facility] Comment on above: Result Comment: <100 mg/dl OPTIMAL 100 - 129 mg/dl NEAR OR ABOVE OPTIMAL 130 - 159 mg/dl BORDERLINE HIGH 160 - 189 mg/dl HIGH >190 mg/dl VERY HIGH Performed By: #### L IPID, BMP, AST, ALT #### [facility] [address] [address] [address] Beverly Kraft Triglyceride [Mass/Vol] 185 mg/dL Critically high <=150 [facility] Comment on above: Performed By: #### L IPID, BMP, AST, ALT #### [facility] [address] [address] [address] Beverly Kraft VLDL CALC 37.0 mg/dL Normal [facility] Comment on above: Performed By: #### L IPID, BMP, AST, ALT #### [facility] [address] [address] [address] Beverly Kraft MICROALB CREAT RATIO RANDOMo n 11-10-2022 mALB <1.3 Normal <=30.0 [facility] Comment on above: Performed By: #### M CRR #### [facility] [address] [place] [address] Dr. Beevrly Kraft MALB CR RATIO 9.3 mg/g Normal 0.0-29.9 [facility] Comment on above: Performed By: #### M CRR #### [facility] [address] [place] [address] Dr. Beverly Kraft URINE CREAT 139.55 mg/dL Normal 20.00-300.00 [facility] Comment on above: Performed By: #### M CRR #### [facility] [address] [address] [address] Beverly Kraft PROF CHEM 8 (BAS METB)on Anion gap [Moles/Vol] 13.0 mmol/L Normal [facility] Comment on above: Performed By: #### L IPID, BMP, AST, ALT #### [facility] [address] [address] [address] Beverly Kraft Calcium [Mass/Vol] 9.9 mg/dL Normal 8.5-10.1 [facility] Comment on above: Performed By: #### L IPID, BMP, AST, ALT #### [facility] [address] [address] [address] Beverly Kraft Chloride [Moles/Vol] 102 mmol/L Normal 98-107 [facility] Comment on above: Performed By: #### L IPID, BMP, AST, ALT #### [facility] [address] [place] [address] Dr. Beverly Kraft CO2 [Moles/Vol] 29.1 mmol/L Normal 21.0-32.0 [facility] Comment on above: Performed By: #### L IPID, BMP, AST, ALT #### [facility] [address] [address] [address] Beverly Kraft Creatinine [Mass/Vol] 0.87 mg/dL Normal 0.70-1.30 [facility] Comment on above: Performed By: #### L IPID, BMP, AST, ALT #### [facility] [address] [place] [address] Dr. Beverly Kraft EGFR-AF RUSSIAN >60 Normal >=60 [facility] Comment on above: Performed By: #### L IPID, BMP, AST, ALT #### [facility] [address] [place] [address] Dr. Beverly Kraft EGFR-NON AF RUSSIAN >60 Normal >=60 [facility] Comment on above: Performed By: #### L IPID, BMP, AST, ALT #### [facility] [address] [address] [address] Beverly Kraft Glucose [Mass/Vol] 113 mg/dL Critically high 74-106 [facility] Comment on above: Performed By: #### L IPID, BMP, AST, ALT #### [facility] [address] [place] [address] Dr. Beverly Kraft Potassium [Moles/Vol] 4.1 mmol/L Normal 3.5-5.1 [facility] Comment on above: Performed By: #### L IPID, BMP, AST, ALT #### [facility] [address] [place] [address] Dr. Beverly Kraft Sodium [Moles/Vol] 140 mmol/L Normal 136-145 [facility] Comment on above: Performed By: #### L IPID, BMP, AST, ALT #### [facility] [address] [place] [address] Dr. Beverly Kraft Urea nitrogen [Mass/Vol] 13.0 mg/dL Normal 7.0-18.0 [facility] Comment on above: Performed By: #### L IPID, BMP, AST, ALT #### [facility] [address] [place] [address] Dr. Beverly Kraft Urea nitrogen/Creatinine [Mass ratio] 14.9 mg/mg Normal [facility] Comment on above: Performed By: #### L IPID, BMP, AST, ALT #### [facility] [address] [place] [address] Dr. Beverly Kraft SGOTon 11-10-2022 AST [Catalytic activity/Vol] 21 U/L Normal 15-37 [facility] Comment on above: Performed By: #### L IPID, BMP, AST, ALT #### [facility] Laboratory [address] [place] [address] Dr. Beverly Kraft SGPTon 11-10-2022 ALT [Catalytic activity/Vol] 42 U/L Normal 16-63 [facility] Comment on above: Performed By: #### L IPID, BMP, AST, ALT #### [facility] Laboratory [address] [place] [address] Dr. Beverly Kraft 36on 10-16-2022 36 Called pt for result s. Pt was encouraged to sign up for MyChart, pt does not know email address to resend code and will call back. Pt states that he is seeing pain mgmt and does not want to schedule visit at this time. Normal [facility] 36 Patient calling abou t xray results requesting follow up [facility] Telephoneon 10-16-2022 Telephone [phone] Laxmi Torres 1975 M Date Provider Department Center 10/16/2022 [id number], ENEDINA [facility] SURG Second Fl Family History Adopted: Yes Normal [facility] DEPAKENE/ VALPROIC ACIDon DEPAKENE 79.9 ug/ml Normal 50.0-100.0 [facility] Comment on above: Performed By: #### V ALP #### [facility] Laboratory [address] [place] [address] Dr. Beverly Kraft CBC AUTO DIFFon 01-29-2022 BASO # 0.0 103/ul Normal 0.0-0.1 [facility] Comment on above: Performed By: #### L IPID, BMP, AST, ALT #### [facility] Laboratory [address] [address] [address] Beverly Kraft Basophils/100 WBC (Bld) 0.5 % Normal 0.2-2.0 [facility] Comment on above: Performed By: #### L IPID, BMP, AST, ALT #### [facility] Laboratory [address] [address] [address] Beverly Kraft EO # 0.3 103/ul Normal 0.0-0.7 [facility] Comment on above: Performed By: #### L IPID, BMP, AST, ALT #### [facility] Laboratory [address] [address] [address] Beverly Kraft Eosinophils/100 WBC (Bld) 4.4 % Normal 0.9-7.0 [facility] Comment on above: Performed By: #### L IPID, BMP, AST, ALT #### [facility] Laboratory [address] [address] [address] Beverly Kraft Erythrocyte distribution width (RBC) [Ratio] 12.9 % Normal 11.0-15.0 [facility] Comment on above: Performed By: #### L IPID, BMP, AST, ALT #### [facility] Laboratory [address] [place] [address] Dr. Beverly Kraft Hematocrit (Bld) [Volume fraction] 44.0 % Normal 42.0-54.0 [facility] Comment on above: Performed By: #### L IPID, BMP, AST, ALT #### [facility] Laboratory [address] [place] [address] Dr. Beverly Kraft Hemoglobin (Bld) [Mass/Vol] 14.9 g/dL Normal 14.0-18.0 [facility] Comment on above: Performed By: #### L IPID, BMP, AST, ALT #### [facility] Laboratory [address] [place] [address] Dr. Beverly Kraft IG # 0.02 10e3/ul Normal 0.00-0.03 [facility] Comment on above: Performed By: #### L IPID, BMP, AST, ALT #### [facility] Laboratory [address] [place] [address] Dr. Beverly Kraft IG % 0.3 % Normal 0.0-0.5 [facility] Comment on above: Performed By: #### L IPID, BMP, AST, ALT #### [facility] Laboratory [address] [place] [address] Dr. Beverly Kraft LYMPH # 2.0 103/ul Normal 1.2-3.8 [facility] Comment on above: Performed By: #### L IPID, BMP, AST, ALT #### [facility] Laboratory [address] [place] [address] Dr. Beverly Kraft Lymphocytes/100 WBC (Bld) 34.7 % Normal 20.5-60.0 [facility] Comment on above: Performed By: #### L IPID, BMP, AST, ALT #### [facility] Laboratory [address] [place] [address] Dr. Beverly Kraft MANUAL DIFF REQ NO Normal [facility] Comment on above: Performed By: #### L IPID, BMP, AST, ALT #### [facility] Laboratory [address] [place] [address] Dr. Beverly Kraft MCH (RBC) [Entitic mass] 29.9 pg Normal 25.9-34.0 [facility] Comment on above: Performed By: #### L IPID, BMP, AST, ALT #### [facility] Laboratory [address] [place] [address] Dr. Beverly Kraft MCHC (RBC) [Mass/Vol] 33.9 g/dL Normal 29.9-35.2 [facility] Comment on above: Performed By: #### L IPID, BMP, AST, ALT #### [facility] [address] [place] [address] Dr. Beverly Kraft MCV (RBC) [Entitic vol] 88.2 fL Normal 80.0-94.0 [facility] Comment on above: Performed By: #### L IPID, BMP, AST, ALT #### [facility] Laboratory [address] [place] [address] Dr. Beverly rKaft MONO # 0.6 103/ul Normal 0.3-0.8 [facility] Comment on above: Performed By: #### L IPID, BMP, AST, ALT #### [facility] Laboratory [address] [place] [address] Dr. Beverly Kraft Monocytes/100 WBC (Bld) 10.3 % Normal 1.7-12.0 [facility] Comment on above: Performed By: #### L IPID, BMP, AST, ALT #### [facility] Laboratory [address] [place] [address] Dr. Beverly Kraft NEUT # 2.9 103/ul Normal 1.4-6.5 [facility] Comment on above: Performed By: #### L IPID, BMP, AST, ALT #### [facility] Laboratory [address] [place] [address] Dr. Beverly Kraft Neutrophils/100 WBC (Bld) 49.8 % Normal 43.0-75.0 [facility] Comment on above: Performed By: #### L IPID, BMP, AST, ALT #### [facility] [address] [place] [address] Dr. Beverly Kraft Platelet mean volume (Bld) [Entitic vol] 8.8 fL Critically low 9.5-13.5 [facility] Comment on above: Performed By: #### L IPID, BMP, AST, ALT #### [facility] [address] [place] [address] Dr. Beverly Kraft PLT 166 103/ul Normal 150-450 [facility] Comment on above: Performed By: #### L IPID, BMP, AST, ALT #### [facility] [address] [place] [address] Dr. Beverly Kraft RBC 4.99 106/ul Normal 4.70-6.10 [facility] Comment on above: Performed By: #### L IPID, BMP, AST, ALT #### [facility] [address] [place] [address] Dr. Beverly Kraft WBC 5.9 103/ul Normal 4.0-11.0 [facility] Comment on above: Performed By: #### L IPID, BMP, AST, ALT #### [facility] [address] [place] [address] Dr. Beverly Kraft FREE T4on 01-29-2022 Free T4 [Mass/Vol] 0.77 ng/dL Normal 0.76-1.46 [facility] Comment on above: Performed By: #### L IPID, BMP, AST, ALT #### [facility] [address] [place] [address] Dr. Beverly Kraft MAGNESIUMon 01-29-2022 Magnesium [Mass/Vol] 1.9 mg/dL Normal 1.8-2.4 [facility] Comment on above: Performed By: #### C MP, TSH, MG #### [facility] Laboratory [address] [place] [address] Dr. Beverly Kraft PROF 14(COMP METB)on 022 Albumin [Mass/Vol] 4.2 g/dL Normal 3.4-5.0 [facility] Comment on above: Performed By: #### C MP, TSH, MG #### [facility] [address] [place] [address] Dr. Beverly Kraft Albumin/Globulin [Mass ratio] 1.0 {ratio} Normal [facility] Comment on above: Performed By: #### C MP, TSH, MG #### [facility] [address] [address] [address] Beverly Kraft ALP [Catalytic activity/Vol] 94 U/L Normal 46-116 [facility] Comment on above: Performed By: #### C MP, TSH, MG #### [facility] [address] [address] [address] Beverly Kraft ALT [Catalytic activity/Vol] 43 U/L Normal 16-63 [facility] Comment on above: Performed By: #### C MP, TSH, MG #### [facility] [address] [place] [address] Dr. Beverly Kraft Anion gap [Moles/Vol] 12.5 mmol/L Normal [facility] Comment on above: Performed By: #### C MP, TSH, MG #### [facility] [address] [place] [address] Dr. Beverly Kraft AST [Catalytic activity/Vol] 16 U/L Normal 15-37 [facility] Comment on above: Performed By: #### C MP, TSH, MG #### [facility] [address] [place] [address] Dr. Beverly Kraft Bilirubin [Mass/Vol] 0.4 mg/dL Normal 0.2-1.0 [facility] Comment on above: Performed By: #### C MP, TSH, MG #### [facility] [address] [place] [address] Dr. Beverly Kraft Calcium [Mass/Vol] 9.9 mg/dL Normal 8.5-10.1 [facility] Comment on above: Performed By: #### C MP, TSH, MG #### [facility] [address] [place] [address] Dr. Beverly Kraft Chloride [Moles/Vol] 102 mmol/L Normal 98-107 [facility] Comment on above: Performed By: #### C MP, TSH, MG #### [facility] [address] [address] [address] Beverly Kraft CO2 [Moles/Vol] 31.4 mmol/L Normal 21.0-32.0 [facility] Comment on above: Performed By: #### C MP, TSH, MG #### [facility] [address] [place] [address] Dr. Beverly Kraft Creatinine [Mass/Vol] 0.84 mg/dL Normal 0.70-1.30 [facility] Comment on above: Performed By: #### C MP, TSH, MG #### [facility] [address] [address] [address] Beverly Kraft EGFR-AF RUSSIAN >60 Normal >=60 [facility] Comment on above: Performed By: #### C MP, TSH, MG #### [facility] [address] [place] [address] Dr. Beverly Kraft EGFR-NON AF RUSSIAN >60 Normal >=60 [facility] Comment on above: Performed By: #### C MP, TSH, MG #### [facility] [address] [place] [address] Dr. Beverly Kraft Globulin (S) [Mass/Vol] 4.4 g/dL Normal [facility] Comment on above: Performed By: #### C MP, TSH, MG #### [facility] [address] [place] [address] Dr. Beverly Kraft Glucose [Mass/Vol] 95 mg/dL Normal 74-106 [facility] Comment on above: Performed By: #### C MP, TSH, MG #### [facility] [address] [place] [address] Dr. Beverly Kraft Potassium [Moles/Vol] 3.9 mmol/L Normal 3.5-5.1 [facility] Comment on above: Performed By: #### C MP, TSH, MG #### [facility] [address] [place] [address] Dr. Beverly Kraft Protein [Mass/Vol] 8.6 g/dL Critically high 6.4-8.2 T [facility] Comment on above: Performed By: #### C MP, TSH, MG #### [facility] [address] [place], [place] [address] Dr. Beverly Kraft Sodium [Moles/Vol] 142 mmol/L Normal 136-145 [facility] Comment on above: Performed By: #### C MP, TSH, MG #### [facility] [address] [place], [place] [address] Dr. Beverly Kraft Urea nitrogen [Mass/Vol] 10.0 mg/dL Normal 7.0-18.0 [facility] Comment on above: Performed By: #### C MP, TSH, MG #### [facility] [address] [address] [address] Beverly Kraft Urea nitrogen/Creatinine [Mass ratio] 11.9 mg/mg Normal [facility] Comment on above: Performed By: #### C MP, TSH, MG #### [facility] [address] [address] [address] Beverly Kraft TSHon 01-29-2022 TSH 3.056 uIU/mL Normal 0.358-3.740 [facility] Comment on above: Performed By: #### C MP, TSH, MG #### [facility] [address] [address] CERVICAL SPINE WO [...] Esdras Chapa DO 12/23/21 Final result Normal [facility] CT HEAD WO CONTRASTon 2021 CT [...] Titus Ortega MD 12/23/21 Final result Normal [facility] XR ANKLE LEFT (MIN 3 VIEWS)o [...] Esdras Chapa DO 12/23/21 Final result Normal [facility] XR HIP RIGHT (2-3 VIEWS)on 0 [...] Titus Ortega MD 12/23/21 Final result Normal [facility] MRI THORACIC SPINE WO CONTRA STon 10-26-2021 MRI THORACIC SPINE WO CONTRAST [facility] Department of Radiology [address] [place] [address] ======== Patient Name: LAXMI TORRES : 1975 Sex: M Age: Race: White Pt. Location: Patient Status: D Ordered Date: 09/26/2021 1:50:00 PM Completed Date: 10/26/2021 12:49 PM Requesting Provider: ENEDINA RUSSELL Attending Provider: ENEDINA RUSSELL Report Copy To: ARACELIS ROBLES Signs & Symptoms: M54.14 Radiculopathy, thoracic region I10 History: dina Han fax SS Ortho HW C and T spine Comments: Ordering Provider - Parish RUSSELL MSN DATABASE ARCHITECT Exam: MRI THORACIC SPINE WO CONTRAST ======== MRI THORACIC SPINE WO CONTRAST 10/26/2021 12:49 PM SIGNS AND SYMPTOMS: M54.14 Radiculopathy, thoracic region I10 TECHNOLOGIST COMMENTS: c/o mid back pain QUESTION FOR THE RADIOLOGIST: Ordering Provider - Parish CROCKETT DATABASE ARCHITECT PROTOCOL: The following pulse sequences were utilized [...] abnormality. Electronically signed: Shea Olivares. Transcribed by: [email or web address], User Resident: Electronically Signed by: SHEA OLIVARES @ 10/28/2021 08:10 AM Normal [facility] Comment on above: Order Comment: Order ing Provider - Parish RUSSELL MSN DATABASE ARCHITECT CT LUMBAR SPINE W CONTRASTon 10-17-2021 CT LUMBAR SPINE W CONTRAST [facility] Department of Radiology [address] [place] [id number] ======== Patient Name: LXAMI TORRES : 1975 Sex: M Age: Race: White Pt. Location: Patient Status: D Ordered Date: 09/26/2021 2:10:00 PM Completed Date: 10/17/2021 03:05 PM Requesting Provider: ENEDINA RUSSELL Attending Provider: ENEDINA RUSSELL Report Copy To: ARACELIS ROBLES Signs & Symptoms: M54.9 Dorsalgia, unspecified I10 History: [place] Comments: myelogram, back and hip pain, leg [...] narrowing. Electronically signed: Ken May. Transcribed by: [email or web address], User Resident: KEN MAY Electronically Signed by: KEN MAY @ 10/19/2021 11:39 AM I personally read this/these film(s) with this resident Normal [facility] Comment on above: Order Comment: myelo gram, back and hip pain, leg numbness, previous surgery, r/o stenosis , LUMBAR MYELOGRAMon 2 LUMBAR MYELOGRAM [facility] Department of Radiology [address] [place] [id number] ======== Patient Name: LAXMI TORRES : 1975 Sex: M Age: Race: White Pt. 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 Electronically signed: Anh Monzon. Transcribed by: [email or web address], User Resident: Electronically Signed by: ANH MONZON @ 10/17/2021 03:17 PM Normal [facility] Comment on above: Order Comment: , mye logram, back and hip pain, leg numbness, previous surgery, r/o stenosis , myelogram, back and hip pain, leg numbness, previous surgery, MRI CERVICAL SPINE W WO CONT [facility] 03-21-2021 MRI CERVICAL SPINE W WO CONTRAST [facility] Department of Radiology [address] [place] [id number] ======== Patient Name: LAXMI TORRES : 1975 Sex: M Age: Race: White Pt. 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 Transcribed by: [email or web address], User Resident: Electronically Signed by: CARLEY MCKENNA @ 03/22/2021 08:57 AM Normal [facility] Comment on above: Order Comment: Order ing Provider - Parish RUSSELL MSN DATABASE ARCHITECT BASIC METABOLIC PANELon 08-2 Calcium [Mass/Vol] 10.3 mg/dL Normal 8.6-10.3 [facility] Comment on above: Performed By: #### 3 5200, 76359, 51676, 33085 #### [facility] [address] [place] [address], [facility] Chloride [Moles/Vol] 90 mmol/L Low 98-107 [facility] Comment on above: Performed By: #### 3 5200, 88249, 56618, 47319 #### [facility] [address] [place] [address], [facility] CO2 [Moles/Vol] 21 mmol/L Normal 21-31 [facility] Comment on above: Performed By: #### 3 5200, 84907, 40000, 58994 #### [facility] [address] [place] [address], [facility] Creatinine [Mass/Vol] 0.75 mg/dL Normal 0.70-1.30 [facility] Comment on above: Performed By: #### 3 5200, 15999, 00669, 49025 #### [facility] [address] [place] [address], [facility] GFR/1.73 sq M.predicted among blacks MDRD (S/P/Bld) [Vol rate/Area] mL/min/{1.73_m2} Normal >60 [facility] Comment on above: Performed By: #### 3 5200, 57372, 10121, 64644 #### [facility] [address] [place] [address], [facility] GFR/1.73 sq M.predicted among non-blacks MDRD (S/P/Bld) [Vol rate/Area] mL/min/{1.73_m2} Normal >60 [facility] Comment on above: Performed By: #### 3 5200, 21989, 96473, 91782 #### [facility] [address] [facility] Glucose [Mass/Vol] 382 mg/dL High 70-100 [facility] Comment on above: Performed By: #### 3 5200, 27160, 02358, 72484 #### [facility] [address] Potassium [Moles/Vol] 3.2 mmol/L Low 3.5-5.1 [facility] Comment on above: Performed By: #### 3 5200, 80129, 29688, 13003 #### [facility] [address] [place] [address], [facility] Sodium [Moles/Vol] 130 mmol/L Low 136-145 [facility] Comment on above: Performed By: #### 3 5200, 37244, 97737, 15583 #### [facility] [address] [place] [address], [facility] Urea nitrogen [Mass/Vol] 11 mg/dL Normal 7-25 [facility] Comment on above: Performed By: #### 3 5200, 17506, 28743, 06562 #### [facility] [address] [place] [address], [facility] CBC W/DIFFon 03-10-2021 ABS IMM GRANS 0.0 10*3/uL Normal 0.0-0.2 [facility] Comment on above: Performed By: #### 5 0103 #### [facility] [address] [place] [address], [facility] ABS NEUTROPHILS 4.6 10*3/uL Normal 1.6-7.6 [facility] Comment on above: Performed By: #### 5 0103 #### [facility] [address] [place] [address], [facility] Basophils (Bld) [#/Vol] 0.0 10*3/uL Normal 0.0-0.2 [facility] Comment on above: Performed By: #### 5 0103 #### [facility] [address] [place] [address], [facility] Basophils/100 WBC (Bld) 0.4 % Normal 0.0-1.0 [facility] Comment on above: Performed By: #### 5 0103 #### [facility] [address] [place] [address], [facility] Eosinophils (Bld) [#/Vol] 0.1 10*3/uL Normal 0.0-0.5 [facility] Comment on above: Performed By: #### 5 0103 #### [facility] [address] [place] [address], [facility] Eosinophils/100 WBC (Bld) 1.5 % Normal 0.0-6.0 [facility] Comment on above: Performed By: #### 5 3 #### [facility] [address] [place] [address], [facility] Erythrocyte distribution width (RBC) [Ratio] 13.0 % Normal 11.5-15.0 [facility] Comment on above: Performed By: #### 3 #### [facility] [address] [place] [address], [facility] Hematocrit (Bld) [Volume fraction] 46.0 % Normal 39.0-50.0 [facility] Comment on above: Performed By: #### 5 0103 #### [facility] [address] [place] [place] [address], [facility] Hemoglobin (Bld) [Mass/Vol] 16.8 g/dL Normal 13.0-17.0 [facility] Comment on above: Performed By: #### 5 3 #### [facility] [address] [place] [address], [facility] IMMATURE GRANS 0.4 % Normal 0.0-1.0 The [facility] Comment on above: Performed By: #### 3 #### [facility] [address] [place] [address], [facility] Lymphocytes (Bld) [#/Vol] 2.6 10*3/uL Normal 1.2-4.0 The [facility] Comment on above: Performed By: #### 5 102 #### [facility] [address] Lymphocytes/100 WBC (Bld) 32.3 % Normal 20.0-45.0 [facility] Comment on above: Performed By: #### 5 3 #### [facility] [address] [place] [address], [facility] MCH (RBC) [Entitic mass] 28.8 pg Normal 27.0-33.0 [facility] Comment on above: Performed By: #### 5 3 #### [facility] [address] [place] [address], [facility] MCHC (RBC) [Mass/Vol] 36.5 g/dL High 32.0-35.0 [facility] Comment on above: Performed By: #### 5 3 #### [facility] [address] [place] [address], [facility] MCV (RBC) [Entitic vol] 78.8 fL Low 82.0-98.0 [facility] Comment on above: Performed By: #### 0103 #### [facility] [address] [place] [address], [facility] Monocytes (Bld) [#/Vol] 0.7 10*3/uL Normal 0.1-1.0 [facility] Comment on above: Performed By: #### 102 #### [facility] [address] [place] [address], [facility] MONOS 8.6 % Normal 5.0-12.0 [facility] Comment on above: Performed By: #### 102 #### [facility] [address] [place] [address], [facility] Neutrophils/100 WBC (Bld) 56.8 % Normal 40.0-72.0 [facility] Comment on above: Performed By: #### 102 #### [facility] [address] [facility] [place] [address], [facility] Nucleated RBC/100 WBC (Bld) [Ratio] 0 % Normal 0-0 [facility] Comment on above: Performed By: #### 102 #### [facility] [address] [facility] [place] [address], [facility] PLAT CNT 175 10*3/uL Normal 150-400 [facility] Comment on above: Performed By: #### 102 #### [facility] [address] [facility] [place] [address], [facility] RBC (Bld) [#/Vol] 5.84 10*6/uL High 4.20-5.70 The [facility] Comment on above: Performed By: #### 102 #### [facility] [address] [place] [address], [facility] WBC (Bld) [#/Vol] 8.07 10*3/uL Normal 4.00-10.60 [facility] Comment on above: Performed By: #### 102 #### [facility] [address] [place] [address], [facility] MAGNESIUM BLOODon 03-10-2021 Magnesium [Mass/Vol] 1.9 mg/dL Normal 1.9-2.7 [facility] Comment on above: Performed By: #### 3 5200, 38241, 47621, 84690 #### [facility] [address] [facility] [place], [place] [address] [place] [address] POC SARS COV2 ANTIGEN NEGATI VEon 03-10-2021 POC SARS COV2 ANTIGEN NEG Negative Normal NEGATIVE The [facility] Comment on above: Result Comment: Nega tive [...] signs and symptoms consistent with COVID-19. The [employer] COVID-19 Ag Card is a lateral flow [...] Accreditation. Performed By: #### 3 1977 #### [facility] [address] [place], [place] [id number] [place] [address] PORTABLE CHEST 1 VIEWon 02-20 PORTABLE CHEST 1 VIEW [facility] Department of Radiology [address] [place] [id number] ======== Patient Name: LAXMI TORRES : 1975 Sex: M Age: Race: White Pt. Location: [facility] Patient Status: E Ordered Date: 03/10/2021 2:25:00 [...] noted. Electronically signed: Guillaume Barnes. Transcribed by: [email or web address], User Resident: Electronically Signed by: GUILLAUME BARNES @ 03/10/2021 03:12 PM Normal [facility] Comment on above: Order Comment: Evalu ate for Cardiomegaly TROPONIN-Ion 03-10-2021 Troponin I.cardiac [Mass/Vol] 0.01 ng/mL Normal 0.00-0.04 [facility] Comment on above: Result Comment: REFE RENCE RANGES: 0.00 - 0.04 ng/ml NORMAL 0.05 - 0.50 ng/ml INDETERMINATE > 0.50 ng/ml CONSISTENT WITH AN M.I. Performed By: #### 3 5200, 49845, 66057, 26[address] #### [facility] [address] TSH3 WITH REFLEX FT4on 03-10 TSH 3RD GENERATION 3.82 uIU/mL Normal 0.34-5.60 The [facility] Comment on above: Performed By: #### 3 5200, 22518, 97190, 64599 #### [facility] [address] [place] [address], [facility] Coding Summaryon 05-23-2017 Coding Summary CODING DATE: 05/23/2017 [facility] STATUS: Home PAYOR: Medicare APC DESCRIPTION 5024 Level 4 Type A ED Visits ADMIT DX: REASON FOR VISIT DX: R45.851 Suicidal ideations FINAL DX: PRINCIPAL: F63.81 Intermittent explosive disorder SECONDARY: F60.3 Borderline personality disorder F31.9 Bipolar disorder, unspecified F63.9 Impulse disorder, unspecified F79 Unspecified intellectual disabilities E11.9 Type 2 diabetes mellitus without complications I10 Essential (primary) hypertension Z79.899 Other group home (current) drug therapy PYMT PROC APC STAT DESCRIPTION DOCTOR NAME DATE NOTE: The code number assigned matches the documented diagnosis and / or procedure in the patient's chart. However, the narrative phrase printed from the coding software may appear abbreviated, or result in slightly different terminology. Revised Coded By: Irwin Gorman' Revised Date Saved: 02/12/2017 05:24 pm [facility] Coding Summaryon 02-12-2017 Coding Summary CODING DATE: 02/12/2017 [facility] STATUS: Home PAYOR: Medicare ADMIT DX: REASON FOR VISIT DX: R45.851 Suicidal ideations FINAL DX: PRINCIPAL: F63.81 Intermittent explosive disorder SECONDARY: F60.3 Borderline personality disorder F31.9 Bipolar disorder, unspecified F63.9 Impulse disorder, unspecified F79 Unspecified intellectual disabilities E11.9 Type 2 diabetes mellitus without complications I10 Essential (primary) hypertension Z79.899 Other remote computer terminal operator (current) drug therapy PROCEDURES DOCTOR NAME DATE NOTE: The code number assigned matches the documented diagnosis and / or procedure in the patient's chart. However, the narrative phrase printed from the coding software may appear abbreviated, or result in slightly different terminology. Coded By: Irwin Gorman' Date Saved: 02/12/2017 05:24 pm [facility] Coding Summaryon 02-08-2017 Coding Summary CODING DATE: 02/08/2017 [facility] STATUS: Home PAYOR: Medicare ADMIT DX: [...] Dameon Gorman Date Saved: 02/08/2017 09:23 am [facility] Basic Metabolic Profon 01-16 (cont.) [facility] Comment on above: Result Comment: Aver age GFR for 30-39 years old: 107 mL/min/1.73sq mChronic Kidney Disease: <60 mL/min/1.73sq mKidney failure: <15 mL/min/1.73sq meGFR calculated using average adult body mass. Additional eGFR calculator available at:http://[email or web address]_[email or web address] Memorial [facility] [address] [place] [address] Performed By: #### C DP, BMP ####[employer] [place] [address] Anion gap 18 mmol/L High 9-17 [facility] Comment on above: Performed By: #### C DP, BMP ####[employer] [place] [address] Calcium 9.4 mg/dL Normal 8.6-10.4 [facility] Comment on above: Performed By: #### C DP, BMP ####[facility] [place] [address] Chloride 105 mmol/L Normal 98-107 [facility] Comment on above: Performed By: #### C DP, BMP ####[facility] [place] [address] CO2 22 mmol/L Normal 20-31 [facility] Comment on above: Performed By: #### C DP, BMP ####[address] [address] Creatinine 0.70 mg/dL Normal 0.70-1.20 [facility] Comment on above: Performed By: #### C DP, BMP ####[address] [address] eGFR (non-black) mL/min/{1.73_m2} Normal >60 [facility] Comment on above: Performed By: #### C DP, BMP ####[address] [address] Glucose mass conc 107 mg/dL High 70-99 [facility] Comment on above: Performed By: #### C DP, BMP ####[address] [place] [address] Potassium molar conc 3.8 mmol/L Normal 3.7-5.3 [facility] Comment on above: Performed By: #### C DP, BMP ####[address] [place] [address] Sodium 145 mmol/L High 135-144 [facility] Comment on above: Performed By: #### C DP, BMP ####[facility] [place] [address] Urea nitrogen 10 mg/dL Normal 6-20 [facility] Comment on above: Performed By: #### C DP, BMP ####[address] [address] BUN/CRE Ratio NOT REPORTED Normal 9-20 [facility] Comment on above: Performed By: #### C DP, BMP ####[address] [address] Staging: NOT REPORTED Normal [facility] Comment on above: Performed By: #### C DP, BMP ####[address] [address] CBC with Diffon 01-16-2017 Abs. Basophil 0.00 k/uL Normal 0.0-0.2 [facility] Comment on above: Result Comment: [address] [address] Performed By: #### C DP, BMP ####[address] [address] Abs.Neutrophil (Seg) 3.50 k/uL Normal 1.8-7.7 [facility] Comment on above: Performed By: #### C DP, BMP ####[address] [address] Basophils/100 WBC Auto (Bld) 0 % Normal [facility] Comment on above: Performed By: #### C DP, BMP ####[address] [address] Eosinophils 0.20 10*3/uL Normal 0.0-0.4 [facility] Comment on above: Performed By: #### C DP, BMP ####[address] [address] Eosinophils/100 leukocytes 3 % Normal [facility] Comment on above: Performed By: #### C DP, BMP ####[address] [address] Erythrocyte distribution width Auto Ratio (RBC) 13.8 % Normal 12.5-15.4 [facility] Comment on above: Performed By: #### C DP, BMP ####[address] [address] Erythrocytes (RBC) 5.13 10*6/uL Normal 4.5-5.9 [facility] Comment on above: Performed By: #### C DP, BMP ####[address] [address] Hematocrit (HCT) 43.2 % Normal 41-53 [facility] Comment on above: Performed By: #### C DP, BMP ####[address] [address] Hemoglobin mass conc (Bld) 14.6 g/dL Normal 13.5-17.5 [facility] Comment on above: Performed By: #### C DP, BMP ####[address] [address] Lymphocytes 2.10 10*3/uL Normal 1.0-4.8 [facility] Comment on above: Performed By: #### C DP, BMP ####[address] [address] Lymphocytes/100 leukocytes 32 % Normal [facility] Comment on above: Performed By: #### C DP, BMP ####[address] [address] MCH 28.4 pg Normal 26-34 [facility] Comment on above: Performed By: #### C DP, BMP ####[address] [address] MCHC mass conc (RBC) 33.8 g/dL Normal 31-37 [facility] Comment on above: Performed By: #### C DP, BMP ####[address] [address] MCV 84.2 fL Normal 80-100 [facility] Comment on above: Performed By: #### C DP, BMP ####[address] [address] Monocytes 0.80 10*3/uL Normal 0.1-1.2 [facility] Comment on above: Performed By: #### C DP, BMP ####[address] [address] Monocytes/100 leukocytes 12 % Normal [facility] Comment on above: Performed By: #### C DP, BMP ####[address] [address] Neutrophil (Seg) 53 % Normal [facility] Comment on above: Performed By: #### C DP, BMP ####[address] [address] Platelet mean volume (PMV) 7.6 fL Normal 6.0-12.0 [facility] Comment on above: Performed By: #### C DP, BMP ####[address] [address] Platelets 171 10*3/uL Normal 140-450 [facility] Comment on above: Performed By: #### C DP, BMP ####[address] [address] WBC (Leukocytes) 6.6 10*3/uL Normal 3.5-11.0 [facility] Comment on above: Performed By: #### C DP, BMP ####[address] [address] Auto Diff Performed NOT REPORTED Normal [facility] Comment on above: Performed By: #### C DP, BMP ####[address] [address] Erythrocyte morphology NOT REPORTED Normal [facility] Comment on above: Performed By: #### C DP, BMP ####[id number] [place] [address] Platelets NOT REPORTED Normal [facility] Comment on above: Performed By: #### C DP, BMP ####[address] [place] [address] WBC Morphology NOT REPORTED Normal [facility] Comment on above: Performed By: #### C DP, BMP ####[address] [place] [address] Coding Queryon 01-16-2017 Coding Query Can you please document for this patient's visit?Thanks.[Electron ically Signed on: 02/17/2017 20:10 EDT] Carolyn Otero[Verified on: 02/17/2017 20:10 EDT] Carolyn Otero[Transcribed on: 01/16/2017 14:23 EDT]RR Normal [facility] Discharge Summaryon 01-17-20 17 HIM IP Note OR [employer] Normal [facility] Vital Signs Date Time Vital Sign Value Performing Clinician Facility 10-02-2024 08:23-0400 Body height 182.9 cm Rand Recinos DO Work Phone: [employer] 10-02-2024 08:23-0400 Body mass index (BMI) [Ratio] 30.86 kg/m2 Rand Recinos DO Work Phone: [employer] 10-02-2024 08:23-0400 Body temperature 98.01 [degF] Rand Recinos DO Work Phone: [employer] 10-02-2024 08:23-0400 Body weight 103.24 kg Rand Recinos DO Work Phone: [facility] 10-02-2024 08:23-0400 Diastolic blood pressure 78 mm[Hg] Rand Recinos DO Work Phone: [facility] 10-02-2024 08:23-0400 Heart rate 102 /min Rand Recinos DO Work Phone: [facility] 10-02-2024 08:23-0400 SaO2% (BldA) [Mass fraction] 97 % Rand Recinos DO Work Phone: [facility] 10-02-2024 08:23-0400 Systolic blood pressure 124 mm[Hg] Rand Recinos DO Work Phone: [facility] 09-10-2024 13:23-0500 Diastolic blood pressure 98 mm[Hg] Guillaume Steve PA Work Phone: [facility] 09-10-2024 13:23-0500 Heart rate 108 /min Guillaume Steve PA Work Phone: [facility] 09-10-2024 13:23-0500 Respiratory rate 16 /min Guillaume Steve PA Work Phone: [facility] 09-10-2024 13:23-0500 SaO2% (BldA) [Mass fraction] 99 % Guillaume Steve PA Work Phone: [facility] 09-10-2024 13:23-0500 Systolic blood pressure 119 mm[Hg] Guillaume Steve [facility] 09-02-2024 12:34-0500 Body height 182.9 cm Myla Verhoff PA-C Work Phone: [facility] 09-02-2024 12:34-0500 Body mass index (BMI) [Ratio] 31.33 kg/m2 Myla Verhoff PA-C Work Phone: [facility] 09-02-2024 12:34-0500 Body weight 104.78 kg Myla Verhoff PA-C Work Phone: [facility] 09-02-2024 12:34-0500 Diastolic blood pressure 80 mm[Hg] Myla Verhoff PA-C Work Phone: [facility] 09-02-2024 12:34-0500 Heart rate 85 /min Myla Verhoff PA-C Work Phone: [facility] 09-02-2024 12:34-0500 Respiratory rate 18 /min Myla Verhoff PA-C Work Phone: [facility] 09-02-2024 12:34-0500 SaO2% (BldA) [Mass fraction] 100 % Myla Verhoff PA-C Work Phone: [facility] 09-02-2024 12:34-0500 Systolic blood pressure 121 mm[Hg] Myla Verhoff PA-C Work Phone: [facility] 07-30-2024 13:03-0500 Body height 177.8 cm [facility] 1 [facility] 07-30-2024 13:03-0500 Body mass index (BMI) [Ratio] 32.71 kg/m2 [facility] 1 [facility] 07-30-2024 13:03-0500 Body weight 103.42 kg [facility] 1 [facility] 06-09-2024 14:46-0500 Diastolic blood pressure 98 mm[Hg] Cinda Steve RETENTION SPECIALIST-DATABASE ARCHITECT Work Phone: [facility] 06-09-2024 14:46-0500 Heart rate 100 /min Cinda Earle RETENTION SPECIALIST-DATABASE ARCHITECT Work Phone: [facility] 06-09-2024 14:46-0500 Respiratory rate 20 /min Cinda Candiceenberg RETENTION SPECIALIST-DATABASE ARCHITECT Work Phone: [facility] 06-09-2024 14:46-0500 Systolic blood pressure 129 mm[Hg] Cinda Nienberg RETENTION SPECIALIST-DATABASE ARCHITECT Work Phone: [facility] 05-11-2024 14:01-0400 Body height 177.8 cm Justin Underwood MD Work Phone: [facility] 05-11-2024 14:01-0400 Body mass index (BMI) [Ratio] 33.2 kg/m2 Justin Underwood MD Work Phone: [facility] 05-11-2024 14:01-0400 Body temperature 98.71 [degF] Justin Underwood MD Work Phone: [facility] 05-11-2024 14:010400 Body weight 104.96 kg Justin Underwood MD Work Phone: [facility] 05-11-2024 14:01-0400 Diastolic blood pressure 78 mm[Hg] Justin Underwood MD Work Phone: [facility] 05-11-2024 14:01-0400 Heart rate 78 /min Justin Underwood MD Work Phone: [facility] 05-11-2024 14:01-0400 SaO2% (BldA) [Mass fraction] 98 % Justin Underwood MD Work Phone: [facility] 05-11-2024 14:01-0400 Systolic blood pressure 118 mm[Hg] Justin Underwood MD Work Phone: [facility] 04-30-2024 14:20-0400 Diastolic blood pressure 84 mm[Hg] Guillaume BARRERA Work Phone: [facility] 04-30-2024 14:20-0400 Heart rate 84 /min Guillaume BARRERA Work Phone: [facility] 04-30-2024 14:20-0400 Respiratory rate 16 /min Guillaume BARRERA Work Phone: [facility] 04-30-2024 14:20-0400 SaO2% (BldA) [Mass fraction] 97 % Guillaume Steve PA Work Phone: [facility] 04-30-2024 14:20-0400 Systolic blood pressure 116 mm[Hg] Guillaume Steve PA Work Phone: [facility] 04-07-2024 13:48-0400 Body height 177.8 cm [facility] 1 [facility] 04-07-2024 13:48-0400 Body mass index (BMI) [Ratio] 32.71 kg/m2 Pm 1 [facility] 04-07-2024 13:48-0400 Body weight 103.42 kg Pm 1 [facility] 03-12-2024 13:46-0400 Body height 177.8 cm Guillaume Steve PA Work Phone: [facility] 03-12-2024 13:46-0400 Body mass index (BMI) [Ratio] 32.71 kg/m2 Guillaume Harveyenberg PA Work Phone: [facility] 03-12-2024 13:46-0400 Body weight 103.42 kg Guillaume Nienberg PA Work Phone: [facility] 03-12-2024 13:46-0400 Diastolic blood pressure 86 mm[Hg] Guillaume Harveyenberg PA Work Phone: [facility] 03-12-2024 13:46-0400 Heart rate 104 /min Guillaume Harveyenberg PA Work Phone: [facility] 03-12-2024 13:46-0400 Respiratory rate 18 /min Guillaume Harveyenberg PA Work Phone: [facility] 03-12-2024 13:46-0400 SaO2% (BldA) [Mass fraction] 100 % Guillaume Harveyenberg PA Work Phone: [facility] 03-12-2024 13:46-0400 Systolic blood pressure 122 mm[Hg] Guillaume Harveyenberg PA Work Phone: [facility] 03-09-2024 14:55-0400 Body height 177.8 cm Justin Underwood MD Work Phone: [facility] 03-09-2024 14:55-0400 Body mass index (BMI) [Ratio] 32.83 kg/m2 Justin Underwood MD Work Phone: [facility] 03-09-2024 14:55-0400 Body temperature 97.59 [degF] Justin Underwood MD Work Phone: [facility] 03-09-2024 14:55-0400 Body weight 103.78 kg Justin Underwood MD Work Phone: [facility] 03-09-2024 14:55-0400 Diastolic blood pressure 82 mm[Hg] Justin Underwood MD Work Phone: [facility] 03-09-2024 14:55-0400 Heart rate 86 /min Justin Underwood MD Work Phone: [facility] 03-09-2024 14:55-0400 SaO2% (BldA) [Mass fraction] 99 % Justin Underwood MD Work Phone: [facility] 03-09-2024 14:55-0400 Systolic blood pressure 130 mm[Hg] Justin Underwood MD Work Phone: [facility] 01-02-2024 11:39-0400 Body height 177.8 cm Guillaume BARRERA Work Phone: [facility] 01-02-2024 11:39-0400 Body mass index (BMI) [Ratio] 33.43 kg/m2 Guillaume BARRERA Work Phone: [facility] 01-02-2024 11:39-0400 Body weight 105.69 kg Guillaume BARRERA Work Phone: [facility] 01-02-2024 11:39-0400 Diastolic blood pressure 86 mm[Hg] Guillaume BARRERA Work Phone: [facility] 01-02-2024 11:39-0400 Heart rate 105 /min Guillaume Nienberg PA Work Phone: [facility] 01-02-2024 11:39-0400 Respiratory rate 14 /min Guillaume Nienberg PA Work Phone: [facility] 01-02-2024 11:39-0400 SaO2% (BldA) [Mass fraction] 97 % Guillaume Nienberg PA Work Phone: [facility] 01-02-2024 11:39-0400 Systolic blood pressure 118 mm[Hg] Guillaume Nienberg PA Work Phone: [facility] 10-29-2023 14:37-0400 Diastolic blood pressure 85 mm[Hg] Guillaume Nienberg PA Work Phone: [facility] 10-29-2023 14:37-0400 Heart rate 107 /min Guillaume Nienberg PA Work Phone: [facility] 10-29-2023 14:37-0400 Respiratory rate 18 /min Guillaume Nienberg PA Work Phone: [facility] 10-29-2023 14:37-0400 SaO2% (BldA) [Mass fraction] 99 % Guillaume Nienberg PA Work Phone: [facility] 10-29-2023 14:37-0400 Systolic blood pressure 111 mm[Hg] Guillaume Nienberg PA Work Phone: [facility] 10-03-2023 13:33-0400 Diastolic blood pressure 98 mm[Hg] Guillaume Nienberg PA Work Phone: [facility] 10-03-2023 13:33-0400 Heart rate 100 /min Guillaume Nienberg PA Work Phone: [facility] 10-03-2023 13:33-0400 Respiratory rate 20 /min Guillaume Nienberg PA Work Phone: [facility] 10-03-2023 13:33-0400 Systolic blood pressure 131 mm[Hg] Guillaume Nienberg PA Work Phone: [facility] 09-25-2023 11:43-0500 Body height 177.8 cm Justin Underwood MD Work Phone: [facility] 09-25-2023 11:43-0500 Body mass index (BMI) [Ratio] 33.86 kg/m2 Justin Underwood MD Work Phone: [facility] 09-25-2023 11:43-0500 Body temperature 98.1 [degF] Justin Underwood MD Work Phone: [facility] 09-25-2023 11:43-0500 Body weight 107.05 kg Justin Underwood MD Work Phone: [facility] 09-25-2023 11:43-0500 Diastolic blood pressure 74 mm[Hg] Justin Underwood MD Work Phone: [facility] 09-25-2023 11:43-0500 Heart rate 108 /min Justin Underwood MD Work Phone: [facility] 09-25-2023 11:43-0500 SaO2% (BldA) [Mass fraction] 97 % Justin Underwood MD Work Phone: [facility] 09-25-2023 11:43-0500 Systolic blood pressure 114 mm[Hg] Justin Underwood MD Work Phone: [facility] 09-03-2023 13:46-0500 Diastolic blood pressure 89 mm[Hg] Guillaume BARRERA Work Phone: [facility] 09-03-2023 13:46-0500 Heart rate 100 /min Guillaume BARRERA Work Phone: [facility] 09-03-2023 13:46-0500 Respiratory rate 20 /min Guillaume BARRERA Work Phone: [facility] 09-03-2023 13:46-0500 Systolic blood pressure 121 mm[Hg] Guillaume BARRERA Work Phone: [facility] 08-29-2023 13:51-0500 Body height 177.8 cm Dionne Barlow DPM Work Phone: [facility] 08-29-2023 13:51-0500 Body mass index (BMI) [Ratio] 33 kg/m2 Dionne Barlow DPM Work Phone: [facility] 08-29-2023 13:51-0500 Body weight 104.33 kg Dionne Barlow DPM Work Phone: [facility] Healthcare Encounters Encounter Date Encounter Type Care Provider Facility Start: 10-02-2024 End: 10-02-2024 Office outpatient visit 15 minutes Rand Recinos DO Work Phone: [facility] Comment on above: Trapezius muscle str ain, left, initial encounter (Primary Dx) Start: 10-02-2024 End: 10-02-2024 Orders Only Justin Underwood MD Work Phone: [facility] Comment on above: Gastroesophageal ref lux disease with esophagitis without hemorrhage (Primary Dx) Start: 09-29-2024 End: 10-02-2024 Telephone encounter Debra Rosales CMA [facility] Start: 09-28-2024 End: 09-28-2024 Refill Debra Rosales CMA [facility] Comment on above: Disc displacement, l umbar [facility]: [facility]: 09-10-[facility]24 End: 09-10-2024 Office outpatient visit 15 minutes Myla mR PA-C Work Phone: [facility] Comment on above: Lumbar post-laminect rojelio syndrome (Primary Dx) Start: 09-10-2024 End: 09-10-2024 ambulatory GUILLAUME STEVE [facility] Start: 09-09-2024 End: 09-17-2024 Telephone encounter Ofelia Barrientos RN [facility] Start: 09-09-2024 End: 09-09-2024 ambulatory GUNNAR CORRALES [facility] Start: 09-07-2024 End: 09-07-2024 Refill Justin Underwood MD Work Phone: [facility] Comment on above: Parkinson's disease ([facility]) (Primary Dx); Type 2 diabetes mellitus treated without insulin ([facility]); Chronic GERD; Seasonal allergies Start: 09-02-2024 ambulatory MYLA N [facility] Start: 09-02-2024 End: 09-02-2024 Office outpatient visit 25 minutes Myla Rm PA-C Work Phone: [facility] Comment on above: Left shoulder pain, unspecified chronicity Start: 09-02-2024 End: 09-02-2024 [facility] Start: 08-18-2024 End: 08-18-2024 Evaluation and management of inpatient MITCHELL Quigley PERALES [facility] Start: 08-14-2024 End: 08-18-2024 Evaluation and management of inpatient [facility] Start: 08-14-2024 End: 08-14-2024 Evaluation and management of inpatient [facility] Start: 07-30-2024 End: 07-30-2024 ambulatory ANH Beavers ROSMERY [facility] Start: 07-30-2024 End: 07-30-2024 Patient encounter procedure [facility] Pre-Admission Testing 1 [facility] Comment on above: Preop examination (P rimary Dx); Hypertension, unspecified type; Type 2 diabetes mellitus without complication, without long-term current use of insulin ([facility]) Start: 07-30-2024 End: 07-30-2024 Preprocedural examination done Pm 1 [facility] Start: 07-28-2024 End: 07-29-2024 Refill Justin Underwood MD Work Phone: [facility] Comment on above: Parkinson's disease ([facility]) (Primary Dx); Type 2 diabetes mellitus treated without insulin ([facility]); Disc displacement, lumbar Start: 07-24-2024 End: 08-07-2024 Refill Bernie Juan CNA [facility] Comment on above: SCS Battery Revision Start: 07-07-2024 End: 07-07-2024 ambulatory [facility] Start: 06-30-2024 End: 06-30-2024 Orders Only Justin Underwood MD Work Phone: [facility] Start: 06-29-2024 End: 06-29-2024 Refill Justin Underwood MD Work Phone: [facility] Comment on above: Parkinson's disease ([facility]) (Primary Dx); Type 2 diabetes mellitus treated without insulin ([facility]); Type 2 diabetes mellitus without complication, without long-term current use of insulin ([facility]) Start: 06-23-2024 End: 06-23-2024 Refill Debra Rosales CMA [facility] Comment on above: Disc displacement, l umbar Start: 06-12-2024 End: 06-12-2024 Refill Bernie Juan CNA [facility] Comment on above: Hypertriglyceridemia Start: 06-09-2024 End: 06-09-2024 Office outpatient visit 15 minutes Cinda Ruthann [facility] RETENTION SPECIALIST-DATABASE ARCHITECT Work Phone: [facility] Comment on above: Lumbar post-laminect rojelio syndrome (Primary Dx) Start: 06-09-2024 End: 06-09-2024 ambulatory [facility] Ruthann [facility] Start: 06-04-2024 End: 06-23-2024 Telephone encounter Debra Rosales CMA [facility] Start: 06-02-2024 End: 06-09-2024 Telephone encounter Chelsey Parker RN [facility] Start: 05-11-2024 End: 05-11-2024 ambulatory JUSTIN UNDERWOOD [facility] Start: 05-11-2024 End: 05-11-2024 Office outpatient visit 25 minutes Justin Underwood MD Work Phone: [facility] Comment on above: Disc displacement, l umbar (Primary Dx); Type 2 diabetes mellitus without complication, without long-term current use of insulin ([facility]); Obesity, morbid ([facility]); Hypercholesteremia; Immunization counseling; Encounter for immunization Start: 04-30-2024 End: 04-30-2024 Office outpatient visit 15 minutes Guillaume Steve PA Work Phone: [facility] Comment on above: Postlaminectomy synd adams of lumbar region (Primary Dx) Start: 04-30-2024 End: 04-30-2024 ambulatory [facility] Start: 04-28-2024 End: 04-28-2024 Refill Susan Calabrese [facility] Comment on above: Disc displacement, l umbar Start: 04-17-2024 End: 04-17-2024 Evaluation and management of inpatient [facility] Start: 04-14-2024 End: 04-14-2024 Refill Lisa Krause [facility] Comment on above: Disc displacement, l umbar Start: 04-07-2024 Encounter for other preprocedural examination [facility] Start: 04-07-2024 End: 04-07-2024 Refill Lisa Krause [facility] Start: 04-07-2024 End: 04-07-2024 ambulatory [facility] Start: 04-02-2024 End: 04-03-2024 Orders Only Justin Underwood MD Work Phone: [facility] Comment on above: Dysuria (Primary Dx) Start: 03-27-2024 End: 03-30-2024 Telephone encounter Meghana Carrera [facility] Comment on above: Er Follow-up Start: 03-26-2024 End: 03-27-2024 Emergency department patient visit MARY STONECATRACHO [facility] Start: 03-26-2024 End: 03-26-2024 Emergency department patient visit [facility] Start: 03-19-2024 End: 04-10-2024 Refill Ofelia Barrientos RN [facility] Comment on above: Prophylactic antibio tic (Primary Dx) Start: 03-16-2024 End: 03-16-2024 ambulatory [facility] Start: 03-12-2024 End: 03-12-2024 ambulatory GUILLAUME STEVE [facility] Start: 03-12-2024 End: 03-12-2024 Office outpatient visit 25 minutes Guillaume Steve PA Work Phone: [facility] Comment on above: Postlaminectomy synd adams of lumbar region (Primary Dx) Start: 03-09-2024 End: 03-09-2024 Patient encounter procedure Declankendall Beavers Kj BAUTISTA Work Phone: [facility] Comment on above: MARK (obstructive sle ep apnea) (Primary Dx); Primary cough headache; Episodic tension-type headache, not intractable; Tobacco use Start: 03-09-2024 End: 03-09-2024 ambulatory [facility] Start: 02-27-2024 End: 02-27-2024 Refill Susan Calabrese [facility] Comment on above: Disc displacement, l umbar Start: 02-22-2024 End: 02-22-2024 ambulatory FLORY Lugo EDILIA [facility] Start: 02-21-2024 End: 02-21-2024 ambulatory TITUS PRITCHETT [facility] Start: 01-31-2024 End: 01-31-2024 ambulatory ELHAM SHAFFER Not Available Start: 01-29-2024 End: 01-29-2024 Refill Lisa Krause [facility] Comment on above: Disc displacement, l umbar Start: 01-26-2024 End: 01-26-2024 Emergency department patient visit [facility] Start: 01-24-2024 End: 01-25-2024 Refill Justin Underwood MD Work Phone: [facility] Comment on above: Parkinson's disease ([facility]) (Primary Dx); Type 2 diabetes mellitus treated without insulin ([facility]); Type 2 diabetes mellitus without complication, without long-term current use of insulin ([facility]) Start: 01-08-2024 End: 01-08-2024 Refill Adysan Sleek SOFTWARE SPECIALIST [facility] Comment on above: Disc displacement, l umbar Start: 01-02-2024 End: 01-02-2024 Office outpatient visit 25 minutes Guillaume BARRERA Work Phone: [facility] Comment on above: Lumbar post-laminect rojelio syndrome (Primary Dx) Start: 01-02-2024 End: 01-02-2024 ambulatory [facility] Start: 12-26-2023 End: 12-26-2023 ambulatory MAXINE PATEL [facility] Start: 12-25-2023 End: 12-25-2023 ambulatory [facility] Start: 12-25-2023 End: 12-25-2023 Office outpatient visit 25 minutes Justin Underwood MD Work Phone: [facility] Comment on above: Hypertriglyceridemia (Primary Dx); Hypercholesteremia Start: 12-11-2023 End: 12-19-2023 Refill Adysan Sleek SOFTWARE SPECIALIST [facility] Comment on above: Disc displacement, l umbar Start: 11-27-2023 End: 11-27-2023 Telephone encounter Guillaume BARRERA Work Phone: [facility] Start: 11-06-2023 End: 11-06-2023 Orders Only Justin Underwood MD Work Phone: [facility] Start: 10-29-2023 End: 10-29-2023 Office outpatient visit 25 minutes Guillaume BARRERA Work Phone: [facility] Comment on above: Lumbar post-laminect rojelio syndrome (Primary Dx); Spinal stenosis of lumbar region with neurogenic claudication Start: 10-29-2023 End: 10-29-2023 ambulatory [facility] Start: 10-25-2023 Orders Only Justin Underwood MD Work Phone: [facility] Start: 10-24-2023 Telephone encounter Susan Warner MA [facility] Start: 10-23-2023 Refill Susan Calabrese CMA [facility] Comment on above: Disc displacement, l umbar Start: 10-17-2023 Refill Prema Salinas CMA [facility] Comment on above: Disc displacement, l umbar Start: 10-14-2023 Telephone encounter Meghana Warner MA [facility] Comment on above: Er Follow-up Disc displacement, l umbar (Primary Dx) Start: 10-13-2023 End: 10-13-2023 Emergency department patient visit JUSTIN UNDERWOOD [facility] Start: 10-10-2023 End: 10-11-2023 ambulatory [place] Start: 10-10-2023 End: 10-10-2023 ambulatory [facility] Start: 10-03-2023 End: 10-03-2023 Office outpatient visit 15 minutes Guillaume BARRERA Work Phone: [facility] Comment on above: Spinal stenosis of l umbar region with neurogenic claudication (Primary Dx) Start: 10-03-2023 End: 10-03-2023 ambulatory [facility] Start: 10-01-2023 End: 10-01-[address] [facility] Ruthann [facility] Start: 09-25-2023 End: 09-25-2023 Office outpatient visit 25 minutes Justin Underwood MD Work Phone: [facility] Comment on above: Type 2 diabetes erick itus without complication, without long- term current use of insulin ([facility]) (Primary Dx); Parkinson's disease; Schizoaffective disorder, depressive type ([facility]); Seizure disorder ([facility]) Start: 09-24-2023 End: 09-24-2023 ambulatory [facility] Start: 09-16-2023 Telephone encounter Ofelia Barrientos RN [facility] Start: 09-03-2023 End: 09-03-2023 Office outpatient visit 25 minutes Guillaume BARRERA Work Phone: [facility] Comment on above: Spinal stenosis of l umbar region with neurogenic claudication (Primary Dx) Start: 08-29-2023 Bamboo flowsheet Dionne Caldwell er DPM Work Phone: [facility] Start: 08-29-2023 Bamboo flowsheet Dionne Caldwell er DPM Work Phone: [facility] Start: 08-29-2023 End: 08-29-2023 ambulatory DIONNE BARLOW Not Available Start: 08-29-2023 End: 08-29-2023 Office outpatient visit 15 minutes Dionne Barlow DPM Work Phone: [facility] Comment on above: Type 2 diabetes erick itus without complication, without long- term current use of insulin ([facility]) (Primary Dx); Dermatophytosis of nail; Dystrophic nail; Pain around toenail Start: 08-23-2023 Orders Only Justin Underwood MD Work Phone: [facility] Comment on above: Anxiety attack (Prim rebekah Dx) Start: 08-22-2023 Refill Ankita krishna RETENTION SPECIALIST-DATABASE ARCHITECT Work Phone: [facility] Comment on above: Disc displacement, l umbar Start: 08-17-2023 End: 08-17-2023 ambulatory JUSTIN Beavers [facility] Start: 08-15-2023 Refill Justin Underwood MD Work Phone: [facility] Comment on above: Primary cough headac he; Disc displacement, lumbar; Type 2 diabetes mellitus without complication, without long-term current use of insulin ([facility]) Start: 07-27-2023 Refill Ankita krishna APRN-ANNELIESE Work Phone: [facility] Comment on above: Disc displacement, l umbar; Type 2 diabetes mellitus without complication, without long-term current use of insulin ([facility]) Start: 07-22-2023 End: 07-22-2023 ambulatory KENDALL Beavers [facility] Start: 11-10-2022 End: 11-11-[address] DOCTOR SHEEHAN Facility:[facility] Start: 09-10-2022 End: 09-11-[address] DOCTOR SHEEHAN Facility:[facility] Start: 01-29-2022 End: 01-30-[address] DOCTOR SHEEHAN Facility:[facility] Start: 12-23-2021 End: 12-23-2021 Emergency department patient visit ARACELIS ROBLES [facility] Start: 10-18-2021 End: 10-18-2021 Emergency department patient visit REFERRED SELF Facility:[facility] Start: 10-07-2021 End: 10-07-2021 Emergency department patient visit REFERRED SELF Facility:[facility] Start: 08-11-2021 End: 08-11-2021 Emergency department patient visit REFERRED SELF Facility:[facility] Start: 03-10-2021 End: 03-10-2021 Emergency department patient visit REFERRED SELF Facility:[facility] Start: 02-26-2021 End: 03-15-2021 ambulatory ARACELIS ROBLES Facility:[facility] Start: 11-21-2020 End: 11-23-2020 Evaluation and management of inpatient [facility] Start: 01-10-2017 End: 02-08-2017 Emergency department patient visit None Provider Facility:[facility] Procedures Date Procedure Procedure Detail Performing Clinician Start: 10-02-2024 Adult depression scr eening assessment Justin Underwood MD Work Phone: Start: 03-09-2024 Adult depression scr eening assessment Justin Underwood MD Work Phone: Start: 01-08-2023 Adult depression scr eening assessment [facility] Work Phone: Start: 08-10-2021 Microalbumin [Mass/v olume] in Urine by Test strip Aknita Qiu [facility] Work Phone: Plan of Treatment Date Care Activity Detail Author Start: 10-02-2025 Adult BMI Screening Adult BMI Screen ing [facility] Start: 10-02-2025 Depression Screening Depression Scre ening [facility] Start: 09-10-2025 Tobacco Screening Tobacco Screening [facility] Start: 09-02-2025 Adult BMI Screening Adult BMI Screen ing [facility] Start: 09-02-2025 Tobacco Screening Tobacco Screening [facility] Start: 08-09-2025 DTaP,Tdap and Td Vaccines (2 - Td or Tdap) DTaP,Tdap and Td Vaccines (2 - Td or Tdap) [facility] Start: 07-30-2025 Adult BMI Screening Adult BMI Screen ing [facility] Start: 07-30-2025 Tobacco Screening Tobacco Screening [facility] Start: 06-09-2025 Tobacco Screening Tobacco Screening [facility] Start: 05-11-2025 Adult BMI Screening Adult BMI Screen ing [facility] Start: 05-11-2025 Tobacco Screening Tobacco Screening [facility] Start: 04-30-2025 Tobacco Screening Tobacco Screening [facility] Start: 04-17-2025 Adult BMI Screening Adult BMI Screen ing [facility] Start: 04-17-2025 Tobacco Screening Tobacco Screening [facility] Start: 04-07-2025 Adult BMI Screening Adult BMI Screen ing [facility] Start: 04-07-2025 Tobacco Screening Tobacco Screening [facility] Start: 03-26-2025 Adult BMI Screening Adult BMI Screen ing [facility] Start: 03-26-2025 Tobacco Screening Tobacco Screening [facility] Start: 03-16-2025 Adult BMI Screening Adult BMI Screen ing [facility] Start: 03-12-2025 End: 03-12-2025 Patient encounter procedure 03/12/2025 2:00 PM EDT [facility] [address] [place] [phone] Justin Underwood MD [address] [place] [address] [phone] [facility] Start: 03-12-2025 Tobacco Screening Tobacco Screening [facility] Start: 03-09-2025 Adult BMI Screening Adult BMI Screen ing [facility] Start: 03-09-2025 Depression Screening Depression Scre ening [facility] Start: 03-09-2025 Tobacco Screening Tobacco Screening [facility] Start: 02-20-2025 Tobacco Screening Tobacco Screening [facility] Start: 01-25-2025 Adult BMI Screening Adult BMI Screen ing [facility] Start: 01-25-2025 Tobacco Screening Tobacco Screening [facility] Start: 01-01-2025 Adult BMI Screening Adult BMI Screen ing [facility] Start: 01-01-2025 Tobacco Screening Tobacco Screening [facility] Start: 11-11-2024 End: 11-11-2024 Patient encounter procedure 11/11/2024 10:30 AM EDT Office Visit [facility] [address] [place] [phone] Myla Rm, PAKassidyC [address] [facility], [address]nd [place] [address] [facility] Start: 11-09-2024 End: 11-09-2024 Patient encounter procedure 11/09/2024 1:30 PM EDT Office Visit [facility] [address] [place] [phone] Justin Unedrwood MD [address] [place], [place] [phone] [facility] Start: 10-28-2024 Tobacco Screening Tobacco Screening [facility] Start: 10-23-2024 End: 10-23-2024 Patient encounter procedure 10/23/2024 11:00 AM EDT Office Visit [facility] [address] [place] [phone] Khadar Cordero MD [address] [address] Eric Young MD [address] [address] [facility] Start: 10-22-2024 End: 10-22-2024 Patient encounter procedure 10/22/2024 12:30 PM EDT Office Visit [facility] [address] [place] [phone] Guillaume Steve, PA [address] [facility] [place], [place] [phone] [facility] Start: 10-15-2024 Statin Use: Diabetic Statin Use: Anderson betic [facility] Start: 10-12-2024 Tobacco Screening Tobacco Screening [facility] Start: 10-02-2024 Tobacco Screening Tobacco Screening [facility] Start: 09-24-2024 Adult BMI Screening Adult BMI Screen ing [facility] Start: 09-24-2024 Tobacco Screening Tobacco Screening [facility] Start: 09-21-2024 End: 09-21-2024 Patient encounter procedure 09/21/2024 10:45 AM EST Appointment [facility] [address] [place] [phone] [facility] Start: 09-13-2024 Tobacco Screening Tobacco Screening [facility] Start: 09-09-2024 End: 09-09-2024 Patient encounter procedure 09/09/2024 9:30 AM EST Appointment [facility] [address] [place] [phone] Left shoulder pain, unspecified chronicity [facility] Comment on above: Left shoulder pain, unspecified chronicity Start: 09-03-2024 Tobacco Screening Tobacco Screening [facility] Start: 09-02-2024 End: 09-02-2024 Patient encounter procedure 09/02/2024 12:45 PM EST Office Visit [facility] [address] [facility] [place] [phone] Myla Rm, PAKassidyC [address] [place] [address] [facility] Start: 08-17-2024 Tobacco Screening Tobacco Screening [facility] Start: 08-14-2024 End: 08-14-2024 Admission to same day surgery center 08/14/2024 2:00 PM EST - 08/14/2024 3:00 PM EST Surgery [facility] [address] [place] [address] Titus Pritchett MD [address] [place] [address] REVISION STIMULATOR SPINAL CORD [facility] Comment on above: REVISION STIMULATOR SPINAL CORD Start: 08-14-2024 End: 08-14-2024 Anesthesia consultation 08/14/2024 2:00 PM EST Anesthesia Event [facility] [address] [place] [phone] Mitchell Perales, DO [address] [place], [place] [phone] [facility] Start: 08-14-2024 End: 08-14-2024 REVISION STIMULATOR SPINAL CORD REVISION STIMULATOR SPINAL CORD post-laminectomy syndrome 08/14/2024 2:00 PM EST [facility] Start: 08-14-2024 Subsequent hospital visit by physician 08/14/2024 2:00 PM EST Hospital Encounter [facility] [address] [place] [phone] Titus Pritchett MD [address] [facility] [place] [address] [facility] Start: 08-05-2024 End: 08-05-2024 Patient encounter procedure 08/05/2024 10:30 AM EST [facility] [address] [place] [address] [place] [address] Khadar Cordero MD [address] [address] [facility] Start: 07-30-2024 End: 07-30-2024 Patient encounter procedure 07/30/2024 12:45 PM EST Procedure visit [facility] [address] [place] [phone] [facility] Start: 07-22-2024 Adult BMI Screening Adult BMI Screen ing [facility] Start: 07-22-2024 Tobacco Screening Tobacco Screening [facility] Start: 07-07-2024 End: 07-07-2024 Patient encounter procedure 07/07/2024 1:45 PM EST Office Visit [facility] [address] [place] [phone] Cinda Steve, RETENTION SPECIALIST-DATABASE ARCHITECT [address] [facility] [place] [address] [facility] Start: 06-09-2024 End: 06-09-2024 Patient encounter procedure 06/09/2024 2:45 PM EST Office Visit [facility] [address] [place] [phone] Cinda Steve, RETENTION SPECIALIST-DATABASE ARCHITECT [address] [place] [address] [facility] Start: 05-11-2024 End: 05-11-2024 Patient encounter procedure 05/11/2024 1:45 PM EDT Office Visit [facility] [address] [place] [phone] Justin Underwood MD [address] [place] [phone] [facility] Start: 05-04-2024 End: 05-04-2024 Patient encounter procedure 05/04/2024 9:00 AM EDT Office Visit [facility] [address] [place] [phone] Justin Underwood MD [address] [place] [address] [facility] Start: 04-30-2024 End: 04-30-2024 Patient encounter procedure 04/30/2024 2:15 PM EDT Office Visit [facility] [address] [place] [phone] Guillaume Steve PA [address] [place] [address] [facility] Start: 04-17-2024 End: 04-17-2024 Admission to same day surgery center 04/17/2024 2:00 PM EDT - 04/17/2024 3:30 PM EDT Surgery [facility] [address] [place] [phone] Titus Pritchett MD [address] [place] [address] INSERTION PERMANENT STIMULATOR SPINAL CORD [38547 (CPT )] [facility] Comment on above: INSERTION PERMANENT STIMULATOR SPINAL CORD [74542 (CPT )] Start: 04-17-2024 End: 04-17-2024 Anesthesia consultation 04/17/2024 2:00 PM EDT Anesthesia Event [facility] [address] [place] [address] Mitchell Perales, DO [address] [place] [address] [facility] Start: 04-17-2024 End: 04-17-2024 Insj/rplcmt spi npgr dir/induxive coupling INSERTION PERMANENT STIMULATOR SPINAL CORD post-laminectomy syndrome 04/17/2024 2:00 PM EDT [place] [facility] Start: 04-17-2024 Subsequent hospital visit by physician 04/17/2024 2:00 PM EDT Hospital Encounter [facility] [address] [place] [phone] Titus Pritchett MD [address] [place], [place] [phone] [facility] Start: 04-02-2024 End: 04-02-2024 Patient encounter procedure 04/02/2024 11:15 AM EDT Office Visit [facility] [address] [place] [address] [address] Justin Underwood MD [address], [place], [place] [phone] [facility] Start: 04-01-2024 End: 04-01-2024 Patient encounter procedure 04/01/2024 11:15 AM EDT Procedure visit [facility] - Pre Admit [address] [place] [phone] [facility] Pre Admit Start: 03-22-2024 COVID-19 Vaccine ( season) COVID-19 Vaccine ( season) [facility] Start: 03-22-2024 COVID-19 Vaccine ( season) COVID-19 Vaccine ( season) [facility] Start: 03-22-2024 Influenza vaccination Influenza Vacc ine [facility] Start: 03-12-2024 End: 03-12-2024 Patient encounter procedure 03/12/2024 1:30 PM EDT Office Visit [facility] [address] [place] [phone] Guillaume Setve, PA [address] [place] [address] [facility] Start: 03-09-2024 End: 03-09-2024 Patient encounter procedure 03/09/2024 3:00 PM EDT Office Visit [facility] [address] [place] [phone] Justin Underwood MD [address], [place], [place] [phone] [facility] Start: 02-27-2024 End: 02-27-2024 Patient encounter procedure 02/27/2024 1:30 PM EDT Procedure Visit [facility] [address] [place] [phone] Dionne Barlow DPM [address] [place], [place] [phone] [facility] Start: 02-21-2024 End: 02-21-2024 Admission to same day surgery center 02/21/2024 2:45 PM EDT - 02/21/2024 3:26 PM EDT Surgery [facility] [address] [place] [phone] Titus Pritchett MD [address] [facility] [facility] [place], [place] [phone] INSERTION STIMULATOR SPINAL CORD-TRIAL [21711 (CPT )] [facility] Comment on above: INSERTION STIMULATOR SPINAL CORD-TRIAL [18706 (CPT )] Start: 02-21-2024 End: 02-21-2024 Prq impltj nstim electrode array epidural INSERTION STIMULATOR SPINAL CORD Lumbar post-laminectomy syndrome 02/21/2024 2:45 PM EDT [facility] Start: 02-21-2024 Subsequent hospital visit by physician 02/21/2024 2:45 PM EDT Hospital Encounter [facility] [address] [place] [phone] Titus Pritchett MD [address] [place] [address] [facility] Start: 01-09-2024 Depression Screening Depression Scre [facility] Start: 12-25-2023 End: 12-25-2023 Telemedicine consultation with patient 12/25/2023 8:00 AM EDT Telemedicine [facility] [address] [place] [address] [place] [phone] Justin Underwood MD [address], [place] [address] [facility] Start: 10-29-2023 End: 10-29-2023 Patient encounter procedure 10/29/2023 2:30 PM EDT Office Visit [facility] [address] [place] [phone] Guillaume Steve PA [address] [place], [place] [phone] [facility] Start: 10-03-2023 End: 10-03-2023 Patient encounter procedure 10/03/2023 1:15 PM EDT Office Visit [facility] [address] [place] [phone] Guillaume Steve PA [address], [address] [place], [place] [phone] [facility] Start: 10-01-2023 End: 10-01-2023 Clinical Support 10/01/2023 9:00 AM EDT Clinical Support [facility] [place] [address] [place] [phone] [facility] Start: 09-25-2023 End: 09-24-2024 CBC W Auto Differential panel - Blood CBC auto differential Lab Routine Type 2 diabetes mellitus without complication, without long-term current use of insulin ([facility]) Expected: 09/25/2023 (Approximate), Expires: 09/24/2024 [employer] Work Phone: Comment on above: Expected: 09/25/2023 (Approximate), Expires: 09/24/2024 Start: 09-25-2023 End: 09-24-2024 Comprehensive metabolic 2000 panel - Serum or Plasma Comprehensive metabolic panel Lab Routine Type 2 diabetes mellitus without complication, without long-term current use of insulin ([facility]) Expected: 09/25/2023 (Approximate), Expires: 09/24/2024 [facility] Comment on above: Expected: 09/25/2023 (Approximate), Expires: 09/24/2024 Start: 09-25-2023 End: 09-24-2024 Hemoglobin A1c/Hemoglobin.total in Blood Hemoglobin A1c Lab Routine Type 2 diabetes mellitus without complication, without long-term current use of insulin ([facility]) Expected: 09/25/2023 (Approximate), Expires: 09/24/2024 [facility] Comment on above: Expected: 09/25/2023 (Approximate), Expires: 09/24/2024 Start: 09-25-2023 End: 09-24-2024 Lipid 1996 panel - Serum or Plasma Lipid profile Lab Routine Type 2 diabetes mellitus without complication, without long-term current use of insulin ([facility]) Expected: 09/25/2023 (Approximate), Expires: 09/24/2024 [facility] Comment on above: Expected: 09/25/2023 (Approximate), Expires: 09/24/2024 Start: 09-25-2023 End: 09-25-2023 Patient encounter procedure 09/25/2023 11:30 AM EST Office Visit [facility] [address] [place] [phone] Justin Underwood MD [address] [place], [place] [phone] [facility] Start: 09-13-2023 End: 09-13-2023 Admission to same day surgery center 09/13/2023 9:07 AM EST - 09/13/2023 9:14 AM EST Surgery [facility] [address] [place] [phone] Titus Pritchett MD [address] [place] [address] INJECTION SPINE TRANSFORAMINAL: right L12 [79950 (CPT )] [facility] Comment on above: INJECTION SPINE GALINDO SFORAMINAL: right L12 [35416 (CPT )] Start: 09-13-2023 End: 09-13-2023 Njx anes&/strd w/img tfrml edrl lmbr/sac 1 lvl INJECTION SPINE TRANSFORAMINAL Spinal stenosis of lumbar region with neurogenic claudication 09/13/2023 9:07 AM EST [facility] Start: 09-13-2023 Subsequent hospital visit by physician 09/13/2023 9:07 AM EST Hospital Encounter [facility] [address] [place] [phone] Titus Pritchett MD [address] [place], [place] [phone] [facility] Start: 09-10-2023 End: 09-10-2023 Patient encounter procedure 09/10/2023 3:30 PM EST Office Visit [facility] [address] [place] [phone] Justin Underwood MD [address] [place], [place] [phone] [facility] Start: 09-03-2023 End: 09-03-2023 Patient encounter procedure 09/03/2023 1:45 PM EST Office Visit [facility] [address] [place] [phone] Guillaume Steve PA [address], [address] [place], [place] [phone] [facility] Start: 08-26-2023 End: 08-26-2023 Patient encounter procedure 08/26/2023 10:45 AM EST Appointment [facility] [address] [place] [phone] Guillaume Steve, PA [address], [address] [place] [address] [facility] Start: 03-22-2023 COVID-19 Vaccine ( season) COVID-19 Vaccine ( season) [facility] Start: 03-22-2023 Influenza vaccination [facility] Start: 08-10-2022 Urine screening for protein Urine Microalbumin [facility] Start: 11-23-1995 Adult BMI Follow Up Plan Adult BMI Follow Up Plan [facility] Start: 11-23-1995 Diabetic foot examination Diabetic Foot Exam [facility] Start: 1977 Glaucoma screening Diabetic Op hthalmology Exam [facility] Start: 1977 Screening for malign ant neoplasm of colon [facility] Start: 1977 Tobacco Counseling Tobacco Counselin g [facility] Insj/rplcmt spi npgr dir/induxive coupling INSERTION PERMANENT [...] complication, without long-term current use of insulin ([facility]) Seizure disorder ([facility]) 1 Occurrences starting 09/25/2023 until 09/24/2024 [facility] Comment on above: 1 Occurrences starti ng 09/25/2023 until 09/24/2024 Immunizations Immunization Date Immunization Notes Care Provider Fa cility 05-11-2024 influenza, injectabl e, madin cameron canine kidney, preservative free Justin Underwood MD Work Phone: [facility] 05-11-2024 Immunization, In Clinic,; Translations: [Drug or medicament (substance)] Justin Underwood MD Work Phone: [facility] 04-17-2022 influenza, injectabl e, quadrivalent, preservative free Dionne Rusher DPM Work Phone: [facility] 04-17-2022 influenza virus vaccine, unspecified formulation Ankita Qiu RETENTION SPECIALIST-DATABASE ARCHITECT Work Phone: [facility] 05-08-2021 Influenza, High-dose Seasonal, Quadrivalent, Preservative Free Dionne Rusher DPM Work Phone: [facility] 05-17-2020 influenza, injectabl e, quadrivalent, preservative free Dionne Rusher DPM Work Phone: [facility] 05-05-2019 influenza, injectabl e, quadrivalent, preservative free Ankita Qiu RETENTION SPECIALIST-DATABASE ARCHITECT Work Phone: [facility] 11-11-2017 hepatitis B vaccine, adult dosage Dionne Rusher DPM Work Phone: [facility] 04-21-2017 hepatitis B vaccine, adult dosage Ankita Qiu RETENTION SPECIALIST-DATABASE ARCHITECT Work Phone: [facility] 07-02-2016 influenza, high dose seasonal, preservative-free Ankita Qiu RETENTION SPECIALIST-DATABASE ARCHITECT Work Phone: [facility] 05-28-2016 influenza, seasonal, injectable, preservative free Dionne Rusher DPM Work Phone: [facility] 08-09-2015 tetanus and diphther ia toxoids, adsorbed, preservative free, for adult use (2 Lf of tetanus toxoid and 2 Lf of diphtheria toxoid) Ankita Qiu RETENTION SPECIALIST-DATABASE ARCHITECT Work Phone: [facility] 06-30-2013 influenza, seasonal, injectable Dionne Rusher DPM Work Phone: [facility] 06-11-2012 influenza, seasonal, injectable Dionne Rusher DPM Work Phone: [facility] 06-27-2011 influenza, seasonal, injectable Dionne Rusher DPM Work Phone: [facility] 05-29-2010 influenza, seasonal, injectable Dionne Barlow DPM Work Phone: [facility] 07-05-2009 novel [id number], preservative-free, injectable Doinne Barlow DPM Work Phone: [facility] 06-25-2009 influenza, seasonal, injectable Dionne Barlow DPM Work Phone: [facility] Healthcare Payers Date Payer Category Payer Medicaid [id number] 2017 Medicare [id number] 2001 Medicare [id number] 1977 Unknown [id number] 2.16.8 40.1.955212.3.579.2.176 1977 Unknown [id number] 2.16.8 40.1.287874.3.579.2.647 1977 Unknown [id number] 2.16.8 40.1.884287.3.579.2.647 1977 Unknown [id number] 2.16.8 40.1.441097.3.579.2.647 1977 Unknown [id number] 2.16.8 40.1.896974.3.579.2.647 1977 Unknown [id number] 2.16.8 40.1.006310.3.579.2.647 1977 Unknown [id number] 2.16.8 40.1.201282.3.579.2.173 1977 Unknown [id number] 2.16.84 0.1.999176.3.579.2.593 1977 Unknown [id number] 2.16.84 0.1.371988.3.579.2.593 1977 Unknown [id number] 2.16.84 0.1.306142.3.579.2.593 1977 Unknown [id number] 2.16.84 0.1.164642.3.579.2.1258 1977 Unknown [id number] 2.16.84 0.1.837744.3.579.2.1258 1977 Unknown [id number] 2.16.8 40.1.920947.3.579.2.1285 1977 Unknown [id number] 2.16.8 40.1.234643.3.579.2.1285 1977 Unknown [id number] 2.16.8 40.1.022810.3.579.2.1285 1977 Unknown [id number] 2.16.84 0.1.748359.3.579.2.1285 1977 Unknown [id number] 2.16. 840.1.989666.3.579.2.1285 1977 Unknown [id number] 2.16. 840.1.511474.3.579.2.1285 1977 Unknown [id number] 2.16. 840.1.321283.3.579.2.1285 1977 Unknown [id number] 2.16. 840.1.499323.3.579.2.1285 1977 Unknown [id number] 2.16. 840.1.032521.3.579.2.1285 1977 Unknown [id number] 2.16. 840.1.825402.3.579.2.1285 1977 Unknown [id number] 2.16. 840.1.776640.3.579.2.1285 1977 Unknown [id number] 2.16. 840.1.069504.3.579.2.1285 1977 Unknown [id number] 2.16. 840.1.593087.3.579.2.1285 1977 Unknown [id number] 2.16. 840.1.307278.3.579.2.1285 1977 Unknown [id number] 2.16. 840.1.233498.3.579.2.1285 1977 Unknown [id number] 2.16.8 40.1.417204.3.579.2.1285 1977 Unknown [id number] 2.16.8 40.1.903475.3.579.2.1285 1977 Unknown [id number] 2.16.8 40.1.544876.3.579.2.1285 1977 Unknown [id number] 2.16.8 40.1.934765.3.579.2.1285 1977 Unknown [id number] 2.16.8 40.1.039560.3.579.2.1285 1977 Unknown [id number] 2.16.8 40.1.966851.3.579.2.1285 1977 Unknown [id number] 2.16.8 40.1.653792.3.579.2.1285 1977 Unknown [id number] 2.16.8 40.1.599562.3.579.2.1285 1977 Unknown [id number] 2.16.8 40.1.184414.3.579.2.1285 1977 Unknown [id number] 2.16.8 40.1.700260.3.579.2.1285 1977 Unknown [id number] 2.16.8 40.1.824611.3.579.2.1285 1977 Unknown [id number] 2.16.8 40.1.974689.3.579.2.1285 1977 Unknown [id number] 2.16.8 40.1.182523.3.579.2.1285 1977 Unknown [id number] 2.16.8 40.1.193035.3.579.2.1285 1977 Unknown [id number] 2.16.8 40.1.862903.3.579.2.1285 1977 Unknown [id number] 2.16.8 40.1.092661.3.579.2.1285 1977 Unknown [id number] 2.16.8 40.1.142939.3.579.2.1285 1977 Unknown [id number] 2.16.8 40.1.330051.3.579.2.1285 1977 Unknown [id number] 2.16.8 40.1.788378.3.579.2.1285 1977 Unknown [id number] 2.16.8 40.1.712976.3.579.2.1285 1977 Unknown [id number] 2.16. 840.1.146809.3.579.2.1285 1977 Unknown [id number] 2.16.8 40.1.842747.3.579.2.1285 1977 Unknown [id number] 2.16.8 40.1.374178.3.579.2.1285 1977 Unknown [id number] 2.16.8 40.1.754791.3.579.2.1286 1959 Medicaid [id number] 1957 Medicare [id number] Social History Date Type Detail Facility Start: 02-17-2023 [facility] Start: 08-29-2023 Alcohol intake Lifetime non-d regis (finding) [facility] Start: 08-12-2020 End: 02-17-2023 History of Social function [facility] Start: 08-12-2020 End: 02-17-2023 Tobacco use panel [facility] Start: 1975 Sex Assigned At Not on file [facility] Start: 07-22-2022 End: 07-30-2024 Tobacco smoking status [facility] Smokes tobacco daily [facility] Start: 07-22-2022 History of tobacco use Cigarette Smo ker [facility] Start: 08-29-2023 End: 07-30-2024 Tobacco use and exposure Smokeless tobacco non-user [facility] Start: 07-07-2024 End: 10-02-2024 Alcoholic beverage intake Current non-drinker of alcohol (finding) [facility] How hard is it for y ou to pay for the very basics like food, housing, medical care, and heating Not hard at all [facility] Start: 04-18-2016 Sex Male (finding) [facility] History of tobacco use [facility] Medical Equipment Procedure Code Equipment Code Equipment Origin al Text Equipment Identifier Dates Kit Nrstm 50cm Infinion 1x16 Spltr Trl - [id number] - [id number] Start: 02-21-2024 Kit Nrstm 50cm Infinion 1x16 Spltr Trl Ld - [id number] - [id number] Start: 02-21-2024 Wavewriter Alpha 16 Implantable Pulse Generator Kit [id number], [id number] FDA Start: 04-17-[address] [id number] Start: 04-17-[address] [id number] Start: 04-17-2024 [employer] [place] [id number] Start: 04-17-2024 [id number], [id number], [id number] Start: 02-25-2023 End: 05-11-2024 Clinical Notes 08-22-2023 to 10-02-2024 Rand Recinos DO - 10/02/2024 8:30 AM EDTPatient InstructionsTelephone Encounter - Debra Rosales CMA - 09/29/2024 9:28 AM EDTTelephone Encounter - Justin Underwood MD - 09/29/2024 9:28 AM EDT Note Date & Type Note Facility 10-02-2024 History of Present illness Narrative Images from the original note were not included. [facility] [address] [place] [address] [place] [address] Patient: Laxmi Torres Date of : 1975 Encounter Date: 10/02/2024 Subjective: Chief Complaint Chief Complaint Patient presents with Headache History of Present Illness Laxmi Torres is a 48 y.o. male, established patient , that presents to the office for ER follow up for headache. Patient seen at [facility] Emergency Department on September 25, 2024. During emergency room visit, patient had a CT scan of the head without contrast which did not show any acute changes. Patient was treated with with IV Toradol, IV Zofran, and IV Benadryl. After CT imaging patient also received IV Dilaudid prior to discharge Headache Headache pattern: Onset last week. Seen at [facility] ED on 09/25. Denies having headaches like this before. Previous testing: CT Time of day symptoms are worse: Upon waking up Do headaches wake patient from sleep?: No Quality: Sharp and throbbing Laterality: Begins over forehead and travels to neck over crown of head. States that skin is sore to the touch. Location: Front/forehead, top of head and neck Pain scale: Can become a 10/10. Duration: Headache lasts all day long. Can interfere with ability to go to sleep. Aggravating factors: Light Changes in vision: Blurred vision Abortive treatments: States that he has been using acetaminophen and flonase nasal spray but neither medication new since ED visit. Patient states that he had recently completed physical therapy in his left shoulder. Review of Systems Review of Systems Neurological: Positive for headaches. Vital Signs BP 124/78 (BP Site: Left Arm, BP Postition: Sitting) Pulse 102 Temp 36.7 C (98 F) (Oral) Ht 182.9 cm (6' 0.01 ) Wt 103.2 kg (227 lb 9.6 oz) SpO2 97% BMI 30.86 kg/m Physical Exam Physical Exam HENT: Head: Normocephalic. Mouth/Throat: Mouth: Mucous membranes are moist. Eyes: Extraocular Movements: Extraocular movements intact. Conjunctiva/sclera: Conjunctivae normal. Neck: Cardiovascular: Rate and Rhythm: Normal rate and regular rhythm. Heart sounds: No murmur heard. Pulmonary: Effort: Pulmonary effort is normal. No respiratory distress. Breath sounds: No wheezing, rhonchi or rales. Abdominal: General: Bowel sounds are normal. There is no distension. Musculoskeletal: Arms: Cervical back: No rigidity. Decreased range of motion (Decreased active and passive rotation to left against gravity and in neutral position). Right lower leg: No edema. Left lower leg: No edema. Comments: Tenderness along superior left trapezius muscle. Neurological: Cranial Nerves: No cranial nerve deficit. Motor: No weakness (Upper extremity strength 5/5 bilaterally). Past Medical, Family, Surgery and Social History Past Medical History: Diagnosis Date Abnormal gait 07/02/2011 Acute pancreatitis 08/12/2020 Allergic rhinitis Anxiety Autism Back problem Bipolar I disorder ([facility]) 01/17/2017 Chipped tooth upper molar chipped Chronic pain disorder Chronic sinusitis COVID-19 2019 Depression Developmental delay disorder Deviated nasal septum 07/30/2022 Diabetes mellitus, type 2 ([facility]) Disc displacement, lumbar 08/20/2019 DNS (deviated nasal septum) alcohol syndrome GERD (gastroesophageal reflux disease) Hemorrhoids without complication 08/12/2020 Hip pain, bilateral Hyperlipidemia Hypersomnia Hypertension Hypokalemia Impulse control disorder in adult Injury of back Intellectual functioning disability 07/02/2011 Leukopenia 03/04/2023 Low back pain Lumbar post-laminectomy syndrome 08/06/2011 Mild oppositional defiant disorder with angry or irritable mood Nasal congestion Nasal turbinate hypertrophy Neck pain [place]'s syndrome Obstructive sleep apnea syndrome 07/02/2011 Seizure disorder ([facility]) states in childhood, denies seizures as an adult Sleep apnea Smoker Spinal stenosis of lumbar region 08/2023 Tachycardia 08/12/2020 Past Surgical History: Procedure Laterality Date BACK SURGERY CHOLECYSTECTOMY INJECTION BLOCK EPIDURAL STEROID LUMBAR/SACRAL: left L 5,1 nroot Left 09/23/2020 Performed by Titus Pritchett MD at [facility] INJECTION BLOCK EPIDURAL STEROID LUMBAR/SACRAL: Left L 5/1 Nroot Left 10/28/2020 Performed by Titus Pritchett MD at [facility] INJECTION BLOCK NERVE MEDIAL BRANCH: bilat L 1/2 5/ Bilateral 04/14/2021 Performed by Titus Pritchett MD at [facility] INJECTION BLOCK NERVE MEDIAL BRANCH: bilat L 1/2 _ 5/ Bilateral 03/03/2021 Performed by Titus Pritchett MD at [facility] INJECTION BLOCK SACROILIAC JOINT Bilateral 12/14/2022 Performed by Titus Pritchett MD at [facility] INJECTION BLOCK SACROILIAC JOINT Bilateral 11/03/2021 Performed by Titus Pritchett MD at [facility] INJECTION BLOCK SACROILIAC JOINT Bilateral 09/29/2021 Performed by Titus Pritchett MD at [facility] INJECTION LUMBAR OR SACRAL EPIDURAL BLOCK WITH STEROIDS: L12 DANA N/A 09/25/2019 Performed by Titus Pritchett MD at [facility] INJECTION LUMBAR OR SACRAL EPIDURAL BLOCK WITH STEROIDS: L12 DANA N/A 08/28/2019 Performed by Titus Pritchett MD at [facility] INJECTION SPINE TRANSFORAMINAL: right L 1,2 Nroot Right 09/13/2023 Performed by Titus Pritchett MD at [facility] INSERTION PERMANENT STIMULATOR SPINAL CORD N/A 04/17/2024 Performed by Titus Pritchett MD at [facility] INSERTION STIMULATOR SPINAL CORD- TRIAL N/A 02/21/2024 Performed by Titus Pritchett MD at [facility] NECK SURGERY Fusion C4-7 OPEN FUNCTIONAL RHINOPLASTY SEPTOPLASTY NOSE WITH REPAIR OF TURBINATE FRACTURE N/A 03/11/2023 Performed by Marlee Vazquez DO at [facility] RADIOFREQUENCY ABLATION SPINAL: left L /2 _ 11/19 Left 10/12/2022 Performed by Titus Pritchett MD at [facility] RADIOFREQUENCY ABLATION SPINAL: left L /2 _11/19 Left 06/23/2021 Performed by Titus Pritchett MD at [facility] RADIOFREQUENCY ABLATION SPINAL: left SI Left 12/01/2021 Performed by Titus Pritchett MD at [facility] RADIOFREQUENCY ABLATION SPINAL: right L /2 _ 11/19 Right 09/28/2022 Performed by Titus Pritchett MD at [facility] RADIOFREQUENCY ABLATION SPINAL: right L /2 _11/19 Right 06/05/2021 Performed by Titus Pritchett MD at [facility] RADIOFREQUENCY ABLATION SPINAL: right SI Right 12/15/2021 Performed by Titus Pritchett MD at [facility] REDUCTION TURBINATE Bilateral 03/11/2023 Performed by Marlee Vazquez DO at [facility] REVISION STIMULATOR SPINAL CORD N/A 08/14/2024 Performed by Titus Pritchett MD at [facility] Family History Problem Relation Age of Onset Sleep apnea Father Anesthesia problems Neg Hx Social History Socioeconomic History Marital status: Single Spouse name: Not on file Number of children: Not on file Years of education: Not on file Highest education level: Not on file Occupational History Not on file Tobacco Use Smoking status: Every Day Current packs/day: 0.50 Average packs/day: 0.3 packs/day for 2.2 years (0.6 ttl pk-yrs) Types: Cigarettes Start [...] at all Food Insecurity: No Food Insecurity (10/02/2024) Hunger Screening Food Insecurity - Worry: Never True Food Insecurity - Inability: Never True Transportation Needs: No Transportation Needs (05/08/2023) PRAPARE - Transportation Lack of Transportation (Medical): No Lack of Transportation (Non-Medical): No Physical Activity: Not on file Stress: Not on file Social Connections: Not on file Interpersonal Safety: Unknown (10/10/2023) [facility] Humiliation, Afraid, Rape, and Kick questionnaire Fear of Current or Ex-Partner: No Emotionally Abused: Not on file Physically Abused: Not on file Sexually Abused: Not on file Housing Instability: Low Risk (05/08/2023) Housing Instability Housing Instability: No Allergies and Current Medications Allergies Allergen Reactions Penicillins Hives Unknown reaction Sulfa (Sulfonamide Antibiotics) Unknown reraction Current Outpatient Medications on File Prior to Visit Medication Sig acetaminophen (TYLENOL EXTRA STRENGTH) 500 mg tablet Take 1 tablet (500 mg total) by mouth every 6 (six) hours as needed for pain or headaches. albuterol (PROVENTIL HFA;VENTOLIN HFA) 90 mcg/actuation inhaler Inhale 2 puffs every 6 (six) hours as needed for wheezing. aspirin 81 mg Take 1 tablet (81 mg total) by mouth in the morning. Hold 1 week prior to surgery scheduled on 03/11/2023 per cardiology. BD AUTOSHIELD DUO PEN NEEDLE 30 gauge x 3/16 needle benztropine (COGENTIN) 1 mg tablet Take 1 tablet (1 mg total) by mouth in the morning and 1 tablet (1 mg total) before bedtime. bismuth subsalicylate (PEPTO BISMOL) 262 mg/15 mL suspension Take 15 mL by mouth every 6 (six) hours as needed for indigestion or heartburn. calcium carbonate (TUMS) 200 mg elemental (500 mg) chewable tablet Chew 1 tablet (200 mg total) and swallow in the morning. cetirizine (ZyrTEC) 10 mg tablet Take 1 tablet (10 mg total) by mouth in the morning. diphenhydrAMINE (BENADRYL) 25 mg capsule Take 1 capsule (25 mg total) by mouth every 6 (six) hours as needed for sleep (headache). divalproex (DEPAKOTE) 500 mg EC tablet Take 1 tablet (500 mg total) by mouth in the morning and 1 tablet (500 mg total) before bedtime. docusate sodium (COLACE) 100 mg capsule Take 1 capsule (100 mg total) by mouth daily as needed for constipation. fenofibrate (LOFIBRA) 54 mg tablet Take 1 tablet (54 mg total) by mouth in the morning. fluticasone propionate (FLONASE) 50 mcg/actuation nasal spray Administer 2 sprays into each nostril in the morning. Indications: allergic conjunctivitis, inflammation of the nose due to an allergy. gabapentin (NEURONTIN) 600 mg tablet Take 1 tablet (600 mg total) by mouth in the morning and 1 tablet (600 mg total) before bedtime. ketoconazole (NIZORAL) 2 % shampoo Apply 1 Application topically 2 (two) times a week. Apply to damp skin, lather, leave on 5 minutes, and rinse liraglutide (VICTOZA 3-NITESH) 0.6 mg/0.1 mL (18 mg/3 mL) pen injector Inject 0.3 mL (1.8 mg total) under the skin in the morning. meclizine (ANTIVERT) 25 mg tablet Chew 1 tablet (25 mg total) and swallow 3 (three) times a day as needed for dizziness. melatonin 1 mg tablet,chewable Chew and swallow as needed. metFORMIN XR (GLUCOPHAGE XR) 500 mg 24 hr tablet Take 1 tablet (500 mg total) by mouth in the morning and 1 tablet (500 mg total) before bedtime. methocarbamoL (ROBAXIN) 500 mg tablet Take 1 tablet (500 mg total) by mouth as needed for muscle spasms. Unsure on dose metoprolol succinate XL (TOPROL XL) 50 mg 24 hr tablet Take 1.5 tablets (75 mg total) by mouth in the morning. montelukast (SINGULAIR) 10 mg tablet Take 1 tablet (10 mg total) by mouth nightly. naproxen (NAPROSYN) 500 mg tablet Take 1 tablet (500 mg total) by mouth in the morning and 1 tablet (500 mg total) in the evening. Take with meals. ondansetron ODT (ZOFRAN ODT) 4 mg disintegrating tablet Dissolve 1 tablet (4 mg total) on tongue every 8 (eight) hours as needed for nausea or vomiting for up to 10 doses. paliperidone (INVEGA) 3 mg 24 hr tablet Take 1 tablet (3 mg total) by mouth nightly. pen needle, diabetic (COMFORT EZ PEN NEEDLES) 32 gauge x 1/4 needle Use 1 needle daily with Victoza phenylephrine HCl-cocoa butter (PREPARATION H,PE,CB,) 0.25-88.44 % suppository Insert 1 suppository into the rectum every 6 (six) hours as needed (rectal pain or hemorrhoid bleeding). QUEtiapine (SEROquel) 300 mg tablet Take 1 tablet (300 mg total) by mouth nightly. Takes with 25mg tablet QUEtiapine (SEROquel) 50 mg tablet Take 1 tablet (50 mg total) by mouth nightly. sertraline (ZOLOFT) 100 mg tablet Take 1 tablet (100 mg total) by mouth in the morning. simvastatin (ZOCOR) 20 mg tablet Take 1 tablet (20 mg total) by mouth nightly. traZODone (DESYREL) 50 mg tablet Take 1 tablet (50 mg total) by mouth nightly. No current facility-administered medications on file prior to visit. Assessment/Plan: 1. Trapezius muscle strain, left, initial encounter - ibuprofen (MOTRIN) 600 mg tablet; Take 1 tablet (600 mg total) by mouth every 8 (eight) hours as needed for headaches for up to 10 days. Dispense: 30 tablet; Refill: 0 No problem-specific Assessment & Plan notes found for this encounter. Patient Instructions Use heat to left trapezius for 15-20 minutes 3 times per day for 10 days then stop. Start on Ibuprofen 600 mg 1 tablet every 8 hrs as needed for headache. Keep November [address] KJ Recinos DO 10/02/24 1:52 PM documented in this encounter [facility] 10-02-2024 Instructions Rand Recinos DO - 10/02/2024 8:30 AM EDT Use heat to left trapezius for 15-20 minutes 3 times per day for 10 days then stop. Start on Ibuprofen 600 mg 1 tablet every 8 hrs as needed for headache. documented in this encounter [facility] 09-29-2024 Miscellaneous Notes Patients caregiver called stating that the new prescription for omeprazole is stated to take as needed when in past Laxmi has taken 1, 20mg tablet daily. Wanting to know if he was supposed to be taking this as needed or once daily. Please advise? Order/Rx updated. Should be scheduled once per day. Please call and notify. Thanks, JUSTIN UNDERWOOD MD 10/02/24 Patient and Caregiver notified when in person for appointment on 10/02. documented in this encounter [facility] 09-29-2024 Telephone encounter Note Patients caregiver called stating that the new prescription for omeprazole is stated to take as needed when in past Laxmi has taken 1, 20mg tablet daily. Wanting to know if he was supposed to be taking this as needed or once daily. Please advise? [facility] 09-29-2024 Telephone encounter Note Order/Rx updated. Should be scheduled once per day. Please call and notify. Thanks, JUSTIN UNDERWOOD MD 10/02/24 [facility] 09-29-2024 Telephone encounter Note Patient and Caregiver notified when in person for appointment on 10/02. [facility] 09-28-2024 Miscellaneous Notes New Script needed. Next scheduled appointment 11/09/2024 documented in this encounter [facility] 09-28-2024 Telephone encounter Note New Script needed. Next scheduled appointment 11/09/2024 [facility] 09-10-2024 History of Present illness Narrative [facility] [address] [place] [address] Patient: Laxmi Torres Sex: male : 1975 [...] MBB w/ 100% relief 06/23/21 Lt L1/2, 5 RFA w/ 50% relief and 06/05/21 Rt [...] is a chronic (2016 (or before per hyperion analyst)) problem. The current episode started more than [...] Anxiety Autism Back problem Bipolar I disorder ([facility]) 01/17/2017 Chipped tooth upper molar chipped Chronic pain disorder Chronic sinusitis COVID-2019 Depression Developmental delay disorder Deviated nasal septum 07/30/2022 Diabetes mellitus, type 2 ([facility]) Disc displacement, lumbar 08/20/2019 DNS (deviated nasal [...] Obstructive sleep apnea syndrome 07/02/2011 Seizure disorder ([facility]) states in childhood, denies seizures as an adult Sleep apnea Smoker Spinal stenosis of lumbar region 08/2023 Tachycardia 08/12/2020 Past Surgical History: Procedure Laterality Date BACK SURGERY CHOLECYSTECTOMY INJECTION BLOCK EPIDURAL STEROID LUMBAR/SACRAL: left L 5,1 nroot Left 09/23/2020 Performed by Titus Pritchett MD at [facility] INJECTION BLOCK EPIDURAL STEROID LUMBAR/SACRAL: Left L 5/1 Nroot Left 10/28/2020 Performed by Titus Pritchett MD at [facility] INJECTION BLOCK NERVE MEDIAL BRANCH: bilat L 1/2 5/ Bilateral 04/14/2021 Performed by Titus Pritchett MD at [facility] INJECTION BLOCK NERVE MEDIAL BRANCH: bilat L /2 _ 11/19 Bilateral 03/03/2021 Performed by Titus Pritchett MD at [facility] INJECTION BLOCK SACROILIAC JOINT Bilateral 12/14/2022 Performed by Titus Pritchett MD at [facility] INJECTION BLOCK SACROILIAC JOINT Bilateral 11/03/2021 Performed by Titus Pritchett MD at [facility] INJECTION BLOCK SACROILIAC JOINT Bilateral 09/29/2021 Performed by Titus Pritchett MD at [facility] LUMBAR OR SACRAL EPIDURAL BLOCK WITH STEROIDS: L12 DANA N/A 09/25/2019 Performed by Titus Pritchett MD at [facility] LUMBAR OR SACRAL EPIDURAL BLOCK WITH STEROIDS: L12 DANA N/A 08/28/2019 Performed by Titus Pritchett MD at [facility] SPINE TRANSFORAMINAL: right L 1,2 Nroot Right 09/13/2023 Performed by Titus Pritchett MD at [facility] INSERTION PERMANENT STIMULATOR SPINAL CORD N/A 04/17/2024 Performed by Titus Pritchett MD at [facility] INSERTION STIMULATOR SPINAL CORD- TRIAL N/A 02/21/2024 Performed by Titus Pritchett MD at [facility] NECK SURGERY Fusion C4-7 OPEN FUNCTIONAL RHINOPLASTY SEPTOPLASTY NOSE WITH REPAIR OF TURBINATE FRACTURE N/A 03/11/2023 Performed by Marlee Vazquez DO at [facility] RADIOFREQUENCY ABLATION SPINAL: left L /2 _ 11/19 Left 10/12/2022 Performed by Titus Pritchett MD at [facility] RADIOFREQUENCY ABLATION SPINAL: left L /2 _11/19 Left 06/23/2021 Performed by Titus Pritchett MD at [facility] RADIOFREQUENCY ABLATION SPINAL: left SI Left 12/01/2021 Performed by Titus Pritchett MD at [facility] RADIOFREQUENCY ABLATION SPINAL: right L /2 _ 11/19 Right 09/28/2022 Performed by Titus Pritchett MD at [facility] RADIOFREQUENCY ABLATION SPINAL: right L /2 _11/19 Right 06/05/2021 Performed by Titus Pritchett MD at [facility] RADIOFREQUENCY ABLATION SPINAL: right SI Right 12/15/2021 Performed by Titus Pritchett MD at [facility] REDUCTION TURBINATE Bilateral 03/11/2023 Performed by Marlee Vazquez DO at [facility] REVISION STIMULATOR SPINAL CORD N/A 08/14/2024 Performed by Titus Pritchett MD at [facility] Allergies Allergen Reactions Penicillins Hives Unknown [...] Interpersonal Safety: Unknown (10/10/2023) Re[facility] from [facility] Humiliation, Afraid, Rape, and Kick questionnaire [...] decision making: Diabetes OARRS: Reviewed. Scribe Statement: IAbril CNA, scribed for and in the presence of BRUCE SERVIN who performed the above service. Provider Statement: GUILLAUME Cote PA, personally performed the services described in the documentation, as scribed by Abril Durán CNA in my presence, and it is both accurate and complete. Abril Durán CNA 09/10/24 1405 BRUCE Servin 09/15/24 1146 documented in this encounter [employer] 09-09-2024 Miscellaneous Notes Pt calls stating stimulator is sticking out, bulging causing discomfort. Spoke with myla, she states the last time she saw pt and site, it appeared appropriate; pt is to call [employer] to discuss discomfort.. PVU Received call from alex from [employer], she requests this office address pts complaints by bringing him in to assess. Called pt, he is unclear in his complaints other than saying discomfort at SCS site when he is sitting. Right calf pain 4/10, pain around stimulator 6/10. Pt is scheduled to see Cong on 09/10/2024 at 1 p.m. Pt, pt caregiver Marco, [employer] rep Alex notified of Laxmi's appt documented in this encounter [facility] 09-09-2024 Telephone encounter Note Pt calls stating stimulator is sticking out, bulging causing discomfort. Spoke with myla, she states the last time she saw pt and site, it appeared appropriate; pt is to call [employer] to discuss discomfort.. PVU [facility] 09-09-2024 Telephone encounter Note Received call from alex from [employer], she requests this office address pts complaints by bringing him in to assess. Called pt, he is unclear in his complaints other than saying discomfort at SCS site when he is sitting. Right calf pain 4/10, pain around stimulator 6/10. Pt is scheduled to see Cong on 09/10/2024 at 1 p.m. Pt, pt caregiver Marco, [employer] rep Alex notified of Laxmi's appt [facility] 09-07-2024 History of Present illness Narrative When was the last Refill? Tums- 08/15/23 Flonase-08/16/23 Is this medication Historical? [place] [facility] preferred Pharmacy? [facility] in [place] When was the last OV with provider? 05/11/24 When is the next scheduled visit? 11/09/24 Both requested meds have been pended for approval. Thank you, Bonny Santo RN [facility] Chronic Care Nurse Clean Up Person [phone] documented in this encounter [facility] 09-02-2024 History of Present illness Narrative [facility] [address] [place] [address] Patient: Laxmi oTrres Sex: male : 1975 Age: 48 y.o. [...] is a chronic (2016 (or before per hyperion analyst)) problem. The current episode started more than [...] Anxiety Autism Back problem Bipolar I disorder ([facility]) 01/17/2017 Chipped tooth upper molar chipped Chronic pain disorder Chronic sinusitis COVID-19 2019 Depression Developmental delay disorder Deviated nasal septum 07/30/2022 Diabetes mellitus, type 2 ([facility]) Disc displacement, lumbar 08/20/2019 DNS (deviated nasal septum) alcohol syndrome GERD (gastroesophageal reflux disease) Hemorrhoids without complication 08/12/2020 Hip pain, bilateral Hyperlipidemia Hypersomnia Hypertension Hypokalemia Impulse control disorder in adult Injury of back Intellectual functioning disability 07/02/2011 Leukopenia 03/04/2023 Low back pain Lumbar post-laminectomy syndrome 08/06/2011 Mild oppositional defiant disorder with angry or irritable mood Nasal congestion Nasal turbinate hypertrophy Neck pain Lakewood's syndrome Obstructive sleep apnea syndrome 07/02/2011 Seizure disorder ([facility]) states in childhood, denies seizures as an adult Sleep apnea Smoker Spinal stenosis of lumbar region 08/2023 Tachycardia 08/12/2020 Past Surgical History: Procedure Laterality Date BACK SURGERY CHOLECYSTECTOMY INJECTION BLOCK EPIDURAL STEROID LUMBAR/SACRAL: left L 5,1 nroot Left 09/23/2020 Performed by Titus Pritchett MD at [facility] INJECTION BLOCK EPIDURAL STEROID LUMBAR/SACRAL: Left L 5/1 Nroot Left 10/28/2020 Performed by Titus Pritchett MD at [facility] INJECTION BLOCK NERVE MEDIAL BRANCH: bilat L 1/2 11/19 Bilateral 04/14/2021 Performed by Titus Pritchett MD at [facility] INJECTION BLOCK NERVE MEDIAL BRANCH: bilat L 1/2 _ 11/19 Bilateral 03/03/2021 Performed by Titus Pritchett MD at [facility] INJECTION BLOCK SACROILIAC JOINT Bilateral 12/14/2022 Performed by Titus Pritchett MD at [facility] INJECTION BLOCK SACROILIAC JOINT Bilateral 11/03/2021 Performed by Titus Pritchett MD at [facility] INJECTION BLOCK SACROILIAC JOINT Bilateral 09/29/2021 Performed by Titus Pritchett MD at [facility] IN[facility]CTION LUMBAR OR SACRAL EPIDURAL BLOCK WITH STEROIDS: L12 DANA N/A 09/25/2019 Performed by Titus Pritchett MD at [facility] IN[facility] LUMBAR OR SACRAL EPIDURAL BLOCK WITH STEROIDS: L12 DANA N/A 08/28/2019 Performed by Titus Pritchett MD at [facility] IN[facility] SPINE TRANSFORAMINAL: right L 1,2 Nroot Right 09/13/2023 Performed by Titus Pritchett MD at [facility] INSERTION PERMANENT STIMULATOR SPINAL CORD N/A 04/17/2024 Performed by Titus Pritchett MD at [facility] INSERTION STIMULATOR SPINAL CORD- TRIAL N/A 02/21/2024 Performed by Titus Pritchett MD at [facility] NECK SURGERY Fusion C4-7 OPEN FUNCTIONAL RHINOPLASTY SEPTOPLASTY NOSE WITH REPAIR OF TURBINATE FRACTURE N/A 03/11/2023 Performed by Marlee Vazquez DO at [facility] RADIOFREQUENCY ABLATION SPINAL: left L 07/23 _ 11/19 Left 10/12/2022 Performed by Titus Pritchett MD at [facility] RADIOFREQUENCY ABLATION SPINAL: left L 07/23 _11/19 Left 06/23/2021 Performed by Titus Pritchett MD at [facility] RADIOFREQUENCY ABLATION SPINAL: left SI Left 12/01/2021 Performed by Titus Pritchett MD at [facility] RADIOFREQUENCY ABLATION SPINAL: right L 07/23 _ 11/19 Right 09/28/2022 Performed by Titus Pritchett MD at [facility] RADIOFREQUENCY ABLATION SPINAL: right L 07/23 _11/19 Right 06/05/2021 Performed by Titus Pritchett MD at [facility] RADIOFREQUENCY ABLATION SPINAL: right SI Right 12/15/2021 Performed by Titus Pritchett MD at [facility] REDUCTION TURBINATE Bilateral 03/11/2023 Performed by Marlee Vazquez DO at [facility] REVISION STIMULATOR SPINAL CORD N/A 08/14/2024 Performed by Titus Pritchett MD at [facility] Allergies Allergen Reactions Penicillins Hives Unknown reaction [...] Interpersonal Safety: Unknown (10/10/2023) Received from [facility], [facility] Humiliation, Afraid, Rape, and Kick questionnaire [...] for self-injury and suicidal ideas. Has an teachers' assistant for adls r/t cognitive deficit Vital [...] accurate and complete. Abril Durán CNA 09/02/24 [id number] Abril Durán CNA 09/02/24 1412 Myla Rm PA-C 09/08/24 0952 documented in this [facility] Nurse Note Caregiver Mary accompanied pt to PAT appt. [facility] 07-30-2024 Miscellaneous Notes Caregiver Mary accompanied pt to PAT appt. documented in this encounter [facility] 07-30-2024 Instructions Shellie Pulido RN - 07/30/2024 12:45 PM EST Preoperative Education Checklist- General Surgery date: 08/14/24 Surgery time: 2p Arrival time: 12p 1. Bring a photo ID and your insurance card with you the day of surgery. You will check in at the main lobby of the [facility]- registration desk is straight ahead as soon as you walk in. Tell them you are here for surgery. 2. If you have a Living Will/Durable Power of Steam Meter Reader for Health Care that is not on [...] after you have bathed. 5. NO nail american/acrylic on at least one finger. If you are having a hand, wrist or foot surgery then all nail american and artificial/acrylic nails must be removed from [...] please call the Preadmission Testing office at [phone], Mon.-Fri. 7 a.m.-3 p.m. Leave a voicemail [...] with your doctor. documented in this encounter [facility] 07-28-2024 History of Present illness Narrative When was the last Refill? 06/23/24 Is this medication Historical? [place] of preferred Pharmacy? [facility] in [place] When was the last OV with provider? 05/11/24 When is the next scheduled visit? 11/09/24 Pended Gabapentin 600mg 1 tab PO BID to be sent to [place]. Quantity 60 with 2 refills pended. Thank you, Bonny Santo RN [facility] Chronic Care Nurse Clean Up Person [phone] [facility] Miscellaneous Notes Patient is scheduled for the following: PAT: 07/30/24 at 1245 pm SCS Battery Revision: 08/14/24 at 2 pm (caregiver aware patient to arrive at 12 pm) Follow up appt: 09/02/24 at 1245 pm Marco caregiver aware of all appointments and that an oral ATB will be sent to the pharmacy on 08/07/24 to begin in the evening (Pharmacy is [facility]) Email sent to [employer] reps. [employer] confirmed that they will be here. Oral ATB per Dr. Pritchett's verbal order prepared, ready to sign. Levaquin 500 mg BID x 5 days, #10 documented in this encounter [employer] 07-24-2024 Telephone encounter Note Patient is scheduled [...] evening (Pharmacy is [facility]) Email sent to [employer] reps. [employer] 07-24-2024 Telephone encounter Note [employer] confirmed that they will be here. [employer] [facility] 07-24-2024 Telephone encounter Note Oral ATB per Dr. Pritchett's verbal order prepared, ready to sign. Levaquin 500 mg BID x 5 days, #10 [employer] 06-29-2024 History of Present illness Narrative I received a voicemail from Marco Gomez, patient's caregiver, and was told that patient is out of his Victoza and the pharmacy is requesting a new prescription to be sent over. Pended order to be sent to [facility] in [place]. Thanks, Bonny Santo RN [facility] Chronic Care Nurse Clean Up Person [phone] documented in this encounter [facility] 06-23-2024 Miscellaneous Notes Caregiver called on behalf of Laxmi stating that he is need of a new Rx for gabapentin due to him being out of refills. Pended in chart. Please advise? documented in this encounter [facility] 06-23-2024 Telephone encounter Note Caregiver called on behalf of Laxmi stating that he is need of a new Rx for gabapentin due to him being out of refills. Pended in chart. Please advise? [facility] 06-09-2024 History of Present illness Narrative [facility] [address] [place] [address] Patient: Laxmi Torres Sex: male : 1975 Age: 48 y.o. PCP: JUSTIN UNDERWOOD MD 06/09/2024 Laxmi Torres is here for a(n) follow up to address SCS battery placement. Patient feels device has migrated and turned. [employer] rep here to assess device. She feels [...] relief for 2 weeks. 04/14/21 [place] L1/2, 5 MBB w/ 100% relief 06/23/21 Lt L1/2, 5 RFA w/ 50% relief and 06/05/21 Rt L1/2, 5 RFA w/ 50% relief Bilateral SI joint [...] is a chronic (2016 (or before per hyperion analyst)) problem. The current episode started more than [...] Anxiety Autism Back problem Bipolar I disorder ([facility]) 01/17/2017 Chipped tooth upper molar chipped Chronic pain disorder Chronic sinusitis COVID-19 2019 Depression Developmental delay disorder Deviated nasal septum 07/30/2022 Diabetes mellitus, type 2 ([facility]) Disc displacement, lumbar 08/20/2019 DNS (deviated nasal septum) alcohol syndrome GERD (gastroesophageal reflux disease) Hemorrhoids without complication 08/12/2020 Hip pain, bilateral Hyperlipidemia Hypersomnia Hypertension Hypokalemia Impulse control disorder in adult Injury of back Intellectual functioning disability 07/02/2011 Leukopenia 03/04/2023 Low back pain Lumbar post-laminectomy syndrome 08/06/2011 Mild oppositional defiant disorder with angry or irritable mood Nasal congestion Nasal turbinate hypertrophy Neck pain Lakewood's syndrome Obstructive sleep apnea syndrome 07/02/2011 Seizure disorder ([facility]) states in childhood, denies seizures as an adult Sleep apnea Smoker Spinal stenosis of lumbar region 08/2023 Tachycardia 08/12/2020 Past Surgical History: Procedure Laterality Date BACK SURGERY CHOLECYSTECTOMY INJECTION BLOCK EPIDURAL STEROID LUMBAR/SACRAL: left L 5,1 nroot Left 09/23/2020 Performed by Titus Pritchett MD at [facility] INJECTION BLOCK EPIDURAL STEROID LUMBAR/SACRAL: Left L 5/1 Nroot Left 10/28/2020 Performed by Titus Pritchett MD at [facility] INJECTION BLOCK NERVE MEDIAL BRANCH: bilat L 1/2 5/ Bilateral 04/14/2021 Performed by Titus Pritchett MD at [facility] NERVE MEDIAL BRANCH: bilat L 1/2 _ 5/ Bilateral 03/03/2021 Performed by Titus Pritchett MD at [facility] SACROILIAC JOINT Bilateral 12/14/2022 Performed by Titus Pritchett MD at [facility] SACROILIAC JOINT Bilateral 11/03/2021 Performed by Titus Pritchett MD at [facility] INJECTION BLOCK SACROILIAC JOINT Bilateral 09/29/2021 Performed by Titus Pritchett MD at [facility] INJECTION LUMBAR OR SACRAL EPIDURAL BLOCK WITH STEROIDS: L12 DANA N/A 09/25/2019 Performed by Titus Pritchett MD at [facility] INJECTION LUMBAR OR SACRAL EPIDURAL BLOCK WITH STEROIDS: L12 DANA N/A 08/28/2019 Performed by Titus Pritchett MD at [facility] INJECTION SPINE TRANSFORAMINAL: right L 1,2 Nroot Right 09/13/2023 Performed by Titus Pritchett MD at [facility] INSERTION PERMANENT STIMULATOR SPINAL CORD N/A 04/17/2024 Performed by Titus Pritchett MD at [facility] INSERTION STIMULATOR SPINAL CORD- TRIAL N/A 02/21/2024 Performed by Titus Pritchett MD at [facility] NECK SURGERY Fusion C4-7 OPEN FUNCTIONAL RHINOPLASTY SEPTOPLASTY NOSE WITH REPAIR OF TURBINATE FRACTURE N/A 03/11/2023 Performed by Marlee Vazquez DO at [facility] RADIOFREQUENCY ABLATION SPINAL: left L 1/2 _ / Left 10/12/2022 Performed by Titus Pritchett MD at [facility] RADIOFREQUENCY ABLATION SPINAL: left L 1/2 _11/19 Left 06/23/2021 Performed by Titus Pritchett MD at [facility] RADIOFREQUENCY ABLATION SPINAL: left SI Left 12/01/2021 Performed by Titus Pritchett MD at [facility] RADIOFREQUENCY ABLATION SPINAL: right L /2 _ 11/19 Right 09/28/2022 Performed by Titus Pritchett MD at [facility] RADIOFREQUENCY ABLATION SPINAL: right L 1/2 _5/ Right 06/05/2021 Performed by Titus Pritchett MD at [facility] RADIOFREQUENCY ABLATION SPINAL: right SI Right 12/15/2021 Performed by Titus Pritchett MD at [facility] REDUCTION TURBINATE Bilateral 03/11/2023 Performed by Marlee Vazquez DO at [facility] Allergies Allergen Reactions Penicillins Hives Unknown reaction [...] Interpersonal Safety: Unknown (10/10/2023) Re[facility] from [facility] Humiliation, Afraid, Rape, and Kick questionnaire [...] charge device despite assistance and recommendations from [employer] [facility] today. 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 Marco is wondering if an appointment is needing to be made. Please advise? I can sign off with out an appointment. Paperwork can go in my inbox. Please call and notify patient. Thanks, JUSTIN UNDERWOOD MD 06/22/24 Paper is going to be dropped of to office. 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 Marco is wondering if an appointment is needing to be made. Please advise? [employer] 06-04-2024 Telephone encounter Note I can sign off with out an appointment. Paperwork can go in my inbox. Please call and notify patient. Thanks, JUSTIN UNDERWOOD MD 06/22/24 [employer] 06-04-2024 Telephone encounter Note Paper is going to be dropped of to office. [employer] 06-02-2024 Miscellaneous Notes Call received from Alex Porter ([employer] [facility]). She reports she has received numerous [...] the office today. documented in this encounter [facility] 06-02-2024 Telephone encounter Note Call received from Alex Porter ([employer] [facility]). She reports she has received numerous [...] moved and [facility] an emergency appointment[facility] Telephone encounter Note If he feels as he is experiencing a true emergency, then a visit to the emergency department would be more appropriate. Otherwise, can f/u next week as scheduled [facility]-02-[facility]24 Telephone encounter Note Spoke with caregiver says they are having difficulty charging SCS. They feel like the SCS has moved. I offered 0930 or 1015 appt to pt caregiver, they would like an appt where Alex is able to be present. Called RUTHY johnson on with this information. Await call back [facility]-02-2024 Telephone encounter Note Patient was seen in the office today. [facility]24 History of Present illness Narrative Images from the original note were not included. [address] [place] [id number] Patient: Laxmi Torres Date of : [...] complication, without long-term current use of insulin ([facility]) - pen needle, diabetic ([employer] EZ PEN NEEDLES) 32 gauge x 1/4 needle; Use 1 needle daily with Victoza Obesity, morbid ([facility]) Hypercholesteremia Immunization counseling - Flucelvax vaccine 6m+ YRS plus Preservative Free IM Encounter for immunization - Flucelvax vaccine 6m+ YRS plus Preservative Free IM Other orders - bismuth subsalicylate (PEPTO BISMOL) 262 mg/15 mL suspension; Take 15 mL by mouth every 6 (six) hours as needed for indigestion or heartburn. JUSTIN UNDERWOOD MD Family Medicine Physician [facility] / [facility] 05/11/24 This note was completed with voice recognition software. The document was reviewed for errors however some may still be present. Please do not hesitate to contact/Epic msg the author to verify any questions/concerns. documented in this encounter [facility] 04-30-2024 History of Present illness Narrative [facility] [address] [place] [address] Patient: Laxmi Torres Sex: male : 1975 [...] is a chronic (2016 (or before per hyperion analyst)) problem. The current episode started more than [...] Anxiety Autism Back problem Bipolar I disorder ([facility]) 01/17/2017 Chipped tooth upper molar chipped Chronic pain disorder Chronic sinusitis COVID-19 2019 Depression Developmental delay disorder Deviated nasal septum 07/30/2022 Diabetes mellitus, type 2 ([facility]) Disc displacement, lumbar 08/20/2019 DNS (deviated nasal [...] Obstructive sleep apnea syndrome 07/02/2011 Seizure disorder ([facility]) states in childhood, denies seizures as an adult Sleep apnea Smoker Spinal stenosis of lumbar region 08/2023 Tachycardia 08/12/2020 Past Surgical History: Procedure Laterality Date BACK SURGERY CHOLECYSTECTOMY INJECTION BLOCK EPIDURAL STEROID LUMBAR/SACRAL: left L 5,1 nroot Left 09/23/2020 Performed by Titus Pritchett MD at [facility] EPIDURAL STEROID LUMBAR/SACRAL: Left L 5/1 Nroot Left 10/28/2020 Performed by Ttius Pritchett MD at [facility] NERVE MEDIAL BRANCH: bilat L 1/2 / Bilateral 04/14/2021 Performed by Titus Pritchett MD at [facility] NERVE MEDIAL BRANCH: bilat L 1/2 _ / Bilateral 03/03/2021 Performed by Titus Pritchett MD at [facility] SACROILIAC JOINT Bilateral 12/14/2022 Performed by Titus Pritchett MD at [facility] SACROILIAC JOINT Bilateral 11/03/2021 Performed by Titus Pritchett MD at [facility] INJECTION BLOCK SACROILIAC JOINT Bilateral 09/29/2021 Performed by Titus Pritchett MD at [facility] LUMBAR OR SACRAL EPIDURAL BLOCK WITH STEROIDS: L12 DANA N/A 09/25/2019 Performed by Titus Pritchett MD at [facility] LUMBAR OR SACRAL EPIDURAL BLOCK WITH STEROIDS: L12 DANA N/A 08/28/2019 Performed by Titus Pritchett MD at [facility] INJECTION SPINE TRANSFORAMINAL: right L 1,2 Nroot Right 09/13/2023 Performed by Titus Pritchett MD at [facility] INSERTION PERMANENT STIMULATOR SPINAL CORD N/A 04/17/2024 Performed by Titus Pritchett MD at [facility] INSERTION STIMULATOR SPINAL CORD- TRIAL N/A 02/21/2024 Performed by Titus Pritchett MD at [facility] NECK SURGERY Fusion C4-7 OPEN FUNCTIONAL RHINOPLASTY SEPTOPLASTY NOSE WITH REPAIR OF TURBINATE FRACTURE N/A 03/11/2023 Performed by Marlee Vazquez DO at [facility] RADIOFREQUENCY ABLATION SPINAL: left L /2 _ 11/19 Left 10/12/2022 Performed by Titus Pritchett MD at [facility] RADIOFREQUENCY ABLATION SPINAL: left L /2 _11/19 Left 06/23/2021 Performed by Titus Pritchett MD at [facility] RADIOFREQUENCY ABLATION SPINAL: left SI Left 12/01/2021 Performed by Titus Pritchett MD at [facility] RADIOFREQUENCY ABLATION SPINAL: right L /2 _ 11/19 Right 09/28/2022 Performed by Titus Pritchett MD at [facility] RADIOFREQUENCY ABLATION SPINAL: right L /2 _11/19 Right 06/05/2021 Performed by Titus Pritchett MD at [facility] RADIOFREQUENCY ABLATION SPINAL: right SI Right 12/15/2021 Performed by Titus Pritchett MD at [facility] REDUCTION TURBINATE Bilateral 03/11/2023 Performed by Marlee Vazquez DO at [facility] Allergies Allergen Reactions Penicillins Hives Unknown reaction [...] Interpersonal Safety: Unknown (10/10/2023) Received from [facility] Humiliation, Afraid, Rape, and Kick questionnaire [...] Durán CNA 04/30/24 1505 BRUCE Servin 05/07/24 0940 documented in this encounter [employer] 04-07-2024 Instructions Eunice Stoll RN - 04/07/2024 1:30 PM EDT Preoperative Education Checklist- General Surgery date: 04/17/24 Surgery time: 2:00 p.m. Arrival time: 12:00 p.m. 1. Bring a photo ID and your insurance card with you the day of surgery. You will check in at the main lobby of the [facility]- registration desk is straight ahead as soon as you walk in. Tell them you are here for surgery. 2. If you have a Living Will/Durable Power of Steam Meter Reader for Health Care that is not on [...] after you have bathed. 5. NO nail american/acrylic on at least one finger. If you are having a hand, wrist or foot surgery then all nail american and artificial/acrylic nails must be removed from [...] please call the Preadmission Testing office at [phone], Mon.-Fri. 7 a.m.-3 p.m. Leave a voicemail [...] with your doctor. documented in this encounter [employer] 04-07-2024 Miscellaneous Notes Preoperative Education Checklist- General Surgery date: 04/17/24 Surgery time: 2:00 p.m. Arrival time: 12:00 p.m. 1. Bring a photo ID and your insurance card with you the day of surgery. You will check in at the main lobby of the [facility]- registration desk is straight ahead as soon as you walk in. Tell them you are here for surgery. 2. If you have a Living Will/Durable Power of Steam Meter Reader for Health Care that is not on [...] after you have bathed. 5. NO nail american/acrylic on at least one finger. If you are having a hand, wrist or foot surgery then all nail american and artificial/acrylic nails must be removed from [...] please call the Preadmission Testing office at [phone], Mon.-Fri. 7 a.m.-3 p.m. Leave a voicemail [...] understanding. Patient's EKG was initially reading acute LA finding. EKG taken to Dr Winslow in the cardiology office and compared the finding to an EKG from last year. He said no acute changes noted and that the EKG was okay. documented in this encounter [facility] 04-07-2024 Nurse Note Preoperative Education Checklist- General Surgery date: 04/17/24 Surgery time: 2:00 p.m. Arrival time: 12:00 p.m. 1. Bring a photo ID and your insurance card with you the day of surgery. You will check in at the main lobby of the [facility]- registration desk is straight ahead as soon as you walk in. Tell them you are here for surgery. 2. If you have a Living Will/Durable Power of Steam Meter Reader for Health Care that is not on [...] after you have bathed. 5. NO nail american/acrylic on at least one finger. If you are having a hand, wrist or foot surgery then all nail american and artificial/acrylic nails must be removed from [...] please call the Preadmission Testing office at [phone], Mon.-Fri. 7 a.m.-3 p.m. Leave a voicemail [...] to the follow-up appointment with your doctor. [facility] 04-07-2024 Nurse Note Surgical instructions reviewed with patient and his caregiver. Both verbalized understanding. Patient's EKG was initially reading acute LA finding. EKG taken to Dr Winslow in the cardiology office and compared the finding to an EKG from last year. He said no acute changes noted and that the EKG was okay. [facility] 04-02-2024 Miscellaneous Notes Marco the caregiver from [facility] Provider called into the office and stated [...] he verbalized understanding. documented in this encounter [facility] 04-02-2024 Telephone encounter Note Marco the caregiver from [facility] Provider called into the office and stated that Rogers has told him late Saturday night that when he is urinating its burning, there was no other symptoms to report. [facility] 04-02-2024 Telephone encounter Note Rx/order sent to pharmacy. Macrobid 100mg BID for 5 days. Please call and notify patient. Thanks, JUSTIN UNDERWOOD MD 04/02/24 [facility] 04-02-2024 Telephone encounter Note Called to let the caregiver know that RX was sent to pharmacy, he verbalized understanding. [facility] 03-27-2024 Miscellaneous Notes ED Outreach This documentation is being used for Transition of Care purposes: Yes/No: No ED Outreach Date: March 27, 2024 ED Outreach Method: COMMUNICATION METHOD: Telephone ED Outreach Attempt: second ED Outreach Outcome: Contacted Patient Name of ED Facility: [facility] Date of ED Discharge: 03/26/2024 Discharge Diagnosis: Nausea and vomiting, Fatty Liver ED Chief Complaint: vomiting Current Symptom Status: improving- spoke with patient's director long term care, hipaa verified. He states that patient is [...] with additional concerns. documented in this encounter [facility] 03-27-2024 Telephone encounter Note ED Outreach This documentation is being used for Transition of Care purposes: Yes/No: No ED Outreach Date: March 27, 2024 ED Outreach Method: COMMUNICATION METHOD: Telephone ED Outreach Attempt: second ED Outreach Outcome: Contacted Patient Name of ED Facility: [facility] Date of ED Discharge: 03/26/2024 Discharge Diagnosis: Nausea and vomiting, Fatty Liver ED Chief Complaint: vomiting Current Symptom Status: improving- spoke with patient's director long term care, hipaa verified. He states that patient is [...] will contact the office with additional concerns. [facility] Miscellaneous Notes On 03/19/2024, Emailed Shea (surgery nurse) for Permanent SCS implant availability on 04/17/2024 2pm. Received confirmation today 03/24/2024 from brakes inspector that pt is scheduled for that day Emailed insurance, brakes inspector ad [employer] staff re: scheduled procedure Please proceed with insurance auth Iraida/alex from [employer] have been notified Spoke with Dr Pritchett re: IV and oral antibiotic for permanent SCS implant. IV antibiotic for Cipro 400 mg prior to procedure. Oral levaquin 500 mg BID x5 days, #10; ok for once daily if pharmacy recommends. documented [facility] this [facility]-19-[facility]24 Telephone encounter Note On 03/19/2024, Emailed Shea (surgery nurse) for Permanent SCS implant availability on 04/17/2024 2pm. Received confirmation today 03/24/2024 from brakes inspector that pt is scheduled for that day Emailed insurance, brakes inspector ad [employer] staff re: scheduled procedure [facility] 03-19-[facility]24 Telephone encounter Note Please proceed with insurance auth Iraida/alex from [employer] have been notified [facility] 03-19-2024 Telephone encounter Note Spoke with Dr Pritchett re: IV and oral antibiotic for permanent SCS implant. IV antibiotic for Cipro 400 mg prior to procedure. Oral levaquin 500 mg BID x5 days, #10; ok for once daily if pharmacy recommends. [facility] 03-12-2024 History of Present illness Narrative [facility] [address] [place] [address] Patient: Laxmi Torres Sex: male : 1975 Age: 48 y.o. PCP: JUSTIN UNDERWOOD MD 03/12/2024 Laxmi Torres is here for a(n) post procedure follow up SCS trial with 100% relief on 02/21/24. . Pain is currently 8/10 can increase to 10/10 depending on activity. Date of onset of pain: 2015 , [...] is a chronic (2016 (or before per hyperion analyst)) problem. The current episode started more than [...] Anxiety Autism Back problem Bipolar I disorder ([facility]) 01/17/2017 Chipped tooth upper molar chipped Chronic pain disorder Chronic sinusitis COVID-19 2019 Depression Developmental delay disorder Deviated nasal septum 07/30/2022 Diabetes mellitus, type 2 ([facility]) Disc displacement, lumbar 08/20/2019 DNS (deviated nasal septum) alcohol syndrome GERD (gastroesophageal reflux disease) Hemorrhoids without complication 08/12/2020 Hip pain, bilateral Hyperlipidemia Hypersomnia Hypertension Hypokalemia Impulse control disorder in adult Injury of back Intellectual functioning disability 07/02/2011 Leukopenia 03/04/2023 Low back pain Lumbar post-laminectomy syndrome 08/06/2011 Mild oppositional defiant disorder with angry or irritable mood Nasal congestion Nasal turbinate hypertrophy Neck pain [place]'s syndrome Obstructive sleep apnea syndrome 07/02/2011 Seizure disorder ([facility]) states in childhood, denies seizures as an adult Sleep apnea Smoker Spinal stenosis of lumbar region 08/2023 Tachycardia 08/12/2020 Past Surgical History: Procedure Laterality Date BACK SURGERY CHOLECYSTECTOMY INJECTION BLOCK EPIDURAL STEROID LUMBAR/SACRAL: left L 5,1 nroot Left 09/23/2020 Performed by Titus Pritchett MD at [facility] EPIDURAL STEROID LUMBAR/SACRAL: Left L 5/1 Nroot Left 10/28/2020 Performed by Titus Pritchett MD at [facility] NERVE MEDIAL BRANCH: bilat L 1/2 5/ Bilateral 04/14/2021 Performed by Titus Pritchett MD at [facility] NERVE MEDIAL BRANCH: bilat L 1/2 _ 5/ Bilateral 03/03/2021 Performed by Titus Pritchett MD at [facility] SACROILIAC JOINT Bilateral 12/14/2022 Performed by Titus Pritchett MD at [facility] SACROILIAC JOINT Bilateral 11/03/2021 Performed by Titus Pritchett MD at [facility] SACROILIAC JOINT Bilateral 09/29/2021 Performed by Titus Pritchett MD at [facility] LUMBAR OR SACRAL EPIDURAL BLOCK WITH STEROIDS: L12 DANA N/A 09/25/2019 Performed by Titus Pritchett MD at [facility] LUMBAR OR SACRAL EPIDURAL BLOCK WITH STEROIDS: L12 DANA N/A 08/28/2019 Performed by Titus Pritchett MD at [facility] INJECTION SPINE TRANSFORAMINAL: right L 1,2 Nroot Right 09/13/2023 Performed by Titus Pritchett MD at [facility] INSERTION STIMULATOR SPINAL CORD- TRIAL N/A 02/21/2024 Performed by Titus Pritchett MD at [facility] NECK SURGERY Fusion C4-7 OPEN FUNCTIONAL RHINOPLASTY SEPTOPLASTY NOSE WITH REPAIR OF TURBINATE FRACTURE N/A 03/11/2023 Performed by Marlee Vazquez DO at [facility] RADIOFREQUENCY ABLATION SPINAL: left L 1/2 _ 11/19 Left 10/12/2022 Performed by Titus Pritchett MD at [facility] RADIOFREQUENCY ABLATION SPINAL: left L 1/2 _11/19 Left 06/23/2021 Performed by Titus Pritchett MD at [facility] RADIOFREQUENCY ABLATION SPINAL: left SI Left 12/01/2021 Performed by Titus Pritchett MD at [facility] RADIOFREQUENCY ABLATION SPINAL: right L 1/2 _ 11/19 Right 09/28/2022 Performed by Titus Pritchett MD at [facility] RADIOFREQUENCY ABLATION SPINAL: right L /2 _11/19 Right 06/05/2021 Performed by Titus Pritchett MD at [facility] RADIOFREQUENCY ABLATION SPINAL: right SI Right 12/15/2021 Performed by Titus Pritchett MD at [facility] REDUCTION TURBINATE Bilateral 03/11/2023 Performed by Marlee Vazquez DO at [facility] Allergies Allergen Reactions Penicillins Hives Unknown reaction [...] Interpersonal Safety: Unknown (10/10/2023) Received from [facility] Humiliation, Afraid, Rape, and Kick questionnaire [...] Servin 03/19/24 1220 documented in this encounter [employer] 03-12-2024 Instructions Ofelia Barrientos RN - 03/12/2024 [...] pain. However, you should contact your SCS merchandiser retail representative to discuss that the stimulator is not [...] stimulator unit, call your spinal cord stimulator merchandiser retail representative (you will be provided with contact information). Be sure to use this trial period to the fullest by using as many programs and settings as possible. documented in this encounter [employer] 03-09-2024 History of Present illness Narrative Images from the original note were not included. [address] [place] [phone] Subjective: Laxmi Torres is a 48 [...] Do you have a durable power of united states attorney?: (!) No Cognitive Screening Do you [...] complication, without long-term current use of insulin ([facility]) 09/25/2023 Leukopenia 03/04/2023 Closed fracture of nasal septum 02/04/2023 Nasal congestion 02/04/2023 Hypertrophy of both inferior nasal turbinates 02/04/2023 Deviated nasal septum 07/30/2022 Chronic tonsillitis 07/30/2022 Other chronic sinusitis 07/30/2022 Disorder of sacrum 09/07/2021 Lumbosacral spondylosis without myelopathy 02/23/2021 Schizoaffective disorder, bipolar type ([facility]) 2020 Essential hypertension 08/12/2020 Hyperlipidemia 08/12/2020 Hemorrhoids without complication 08/12/2020 Nonspecific abnormal finding 08/12/2020 Hypersomnia 08/12/2020 Prolapsed cervical intervertebral disc 08/12/2020 Tachycardia 08/12/2020 Disc displacement, lumbar 08/20/2019 Sensorineural hearing loss (SNHL) of both ears 07/10/2019 Bipolar I disorder ([facility]) 01/17/2017 Allergic rhinitis 05/10/2014 Spinal stenosis of cervical region 11/30/2013 Neoplasm of uncertain behavior of skin 09/10/2012 Displacement of lumbar intervertebral disc without myelopathy 08/06/2011 Lumbar post-laminectomy syndrome 08/06/2011 Abnormal gait 07/02/2011 Abnormal glucose level 07/02/2011 Anxiety state 07/02/2011 Obstructive sleep apnea syndrome 07/02/2011 Seizure disorder ([facility]) 07/02/2011 Intellectual functioning disability 07/02/2011 Osteoarthritis 07/02/2011 Parkinson's disease ([facility]) 07/02/2011 Spinal stenosis of lumbar region 07/02/2011 Past Medical History: Diagnosis Date Abnormal gait 07/02/2011 Acute pancreatitis 08/12/2020 Allergic rhinitis Anxiety Autism Back problem Bipolar I disorder ([facility]) 01/17/2017 Chipped tooth upper molar chipped Chronic pain disorder Chronic sinusitis COVID-19 2019 Depression Developmental delay disorder Deviated nasal septum 07/30/2022 Diabetes mellitus, type 2 ([facility]) Disc displacement, lumbar 08/20/2019 DNS (deviated nasal septum) alcohol syndrome GERD (gastroesophageal reflux disease) Hemorrhoids without complication 08/12/2020 Hip pain, bilateral Hyperlipidemia Hypersomnia Hypertension Hypokalemia Impulse control disorder in adult Injury of back Intellectual functioning disability 07/02/2011 Leukopenia 03/04/2023 Low back pain Lumbar post-laminectomy syndrome 08/06/2011 Mild oppositional defiant disorder with angry or irritable mood Nasal congestion Nasal turbinate hypertrophy Neck pain Lakewood's syndrome Obstructive sleep apnea syndrome 07/02/2011 Seizure disorder ([facility]) states in childhood, denies seizures as an adult Sleep apnea Smoker Spinal stenosis of lumbar region 08/2023 Tachycardia 08/12/2020 Past Surgical History: Procedure Laterality Date BACK SURGERY CHOLECYSTECTOMY INJECTION BLOCK EPIDURAL STEROID LUMBAR/SACRAL: left L 5,1 nroot Left 09/23/2020 Performed by Titus Pritchett MD at [facility] INJECTION BLOCK EPIDURAL STEROID LUMBAR/SACRAL: Left L 5/1 Nroot Left 10/28/2020 Performed by Titus Pritchett MD at [facility] INJECTION BLOCK NERVE MEDIAL BRANCH: bilat L 1/2 5/ Bilateral 04/14/2021 Performed by Titus Pritchett MD at [facility] INJECTION BLOCK NERVE MEDIAL BRANCH: bilat L 1/2 _ 5/1 Bilateral 03/03/2021 Performed by Titus Pritchett MD at [facility] IN[facility]CTION BLOCK SACROILIAC JOINT Bilateral 12/14/2022 Performed by Titus Pritchett MD at [facility] IN[facility] BLOCK SACROILIAC JOINT Bilateral 11/03/2021 Performed by Titus Pritchett MD at [facility] IN[facility]CTION BLOCK SACROILIAC JOINT Bilateral 09/29/2021 Performed by Titus Pritchett MD at [facility] IN[facility]CTION LUMBAR OR SACRAL EPIDURAL BLOCK WITH STEROIDS: L12 DANA N/A 09/25/2019 Performed by Titus Pritchett MD at [facility] INJECTION LUMBAR OR SACRAL EPIDURAL BLOCK WITH STEROIDS: L12 DANA N/A 08/28/2019 Performed by Titus Pritchett MD at [facility] INJECTION SPINE TRANSFORAMINAL: right L 1,2 Nroot Right 09/13/2023 Performed by Titus Pritchett MD at [facility] INSERTION STIMULATOR SPINAL CORD- TRIAL N/A 02/21/2024 Performed by Titus Pritchett MD at [facility] NECK SURGERY Fusion C4-7 OPEN FUNCTIONAL RHINOPLASTY SEPTOPLASTY NOSE WITH REPAIR OF TURBINATE FRACTURE N/A 03/11/2023 Performed by Marlee Vazquez DO at [facility] RADIOFREQUENCY ABLATION SPINAL: left L 1/2 _ 11/19 Left 10/12/2022 Performed by Titus Pritchett MD at [facility] RADIOFREQUENCY ABLATION SPINAL: left L 1/2 _11/19 Left 06/23/2021 Performed by Titus Pritchett MD at [facility] RADIOFREQUENCY ABLATION SPINAL: left SI Left 12/01/2021 Performed by Titus Pritchett MD at [facility] RADIOFREQUENCY ABLATION SPINAL: right L 1/2 _ 5/ Right 09/28/2022 Performed by Titus Pritchett MD at [facility] RADIOFREQUENCY ABLATION SPINAL: right L 1/2 _5/ Right 06/05/2021 Performed by Titus Pritchett MD at [facility] RADIOFREQUENCY ABLATION SPINAL: right SI Right 12/15/2021 Performed by Titus Pritchett MD at [facility] REDUCTION TURBINATE Bilateral 03/11/2023 Performed by Marlee Vazquez DO at [facility] Family History Problem Relation Age of Onset [...] and Education Materials:Staying Healthy: Medicare's Preventive Services ([facility]) Diseases: Heart Health (EMELINA), Know the Facts about Heart Disease (CDC), and Tobacco Treatment Services ([facility]) Immunizations: Understanding how vaccines work (CDC) Nutrition: Healthy eating after 50 (EMELINA) and Common questions ([facility]) Activity/Exercise/Safety/Misc: Road to Independent Driving ([facility]) The above recommendations were discussed with patient Laxmi was seen today for annual exam. Diagnoses and all orders for this visit: MARK (obstructive sleep apnea) - Ambulatory referral to [facility] Sleep Medicine; Future Primary cough headache - diphenhydrAMINE (BENADRYL) 25 mg capsule; Take 1 capsule (25 mg total) by mouth every 6 (six) hours as needed for sleep (headache). Episodic tension-type headache, not intractable Tobacco use There are no Patient Instructions on file for this visit. JUSTIN UNDERWOOD MD 03/09/24 documented in this encounter [facility] 01-24-2024 History of Present illness Narrative Marco, patient's caregiver, has requested for patient's Albuterol inhaler to be refilled. Please sign if appropriate. Thanks, Bonny Santo RN documented in this encounter [facility] 01-24-2024 History of Present illness Narrative When was the last Refill? 08/15/2023 Is this medication Historical? [place] of preferred Pharmacy? [facility] in [place], [place] When was the last OV with provider? 12/25/2023 When is the next scheduled visit? 03/09/2024 documented in this encounter [facility] 01-02-2024 History of Present illness Narrative [facility] [address] [place] [phone] Patient: Laxmi Torres Sex: male : 1975 [...] is a chronic (2016 (or before per hyperion analyst)) problem. The current episode started more than [...] Anxiety Autism Back problem Bipolar I disorder ([facility]) 01/17/2017 Chipped tooth upper molar chipped Chronic pain disorder Chronic sinusitis COVID-2019 Depression Developmental delay disorder Deviated nasal septum 07/30/2022 Diabetes mellitus, type 2 ([facility]) Disc displacement, lumbar 08/20/2019 DNS (deviated nasal septum) alcohol syndrome GERD (gastroesophageal reflux disease) Hemorrhoids without complication 08/12/2020 Hip pain, bilateral Hyperlipidemia Hypersomnia Hypertension Hypokalemia Impulse control disorder in adult Injury of back Intellectual functioning disability 07/02/2011 Leukopenia 03/04/2023 Low back pain Lumbar post-laminectomy syndrome 08/06/2011 Mild oppositional defiant disorder with angry or irritable mood Nasal congestion Nasal turbinate hypertrophy Neck pain Lakewood's syndrome Obstructive sleep apnea syndrome 07/02/2011 Seizure disorder ([facility]) states in childhood, denies seizures as an adult Sleep apnea Smoker Spinal stenosis of lumbar region 08/2023 Tachycardia 08/12/2020 Past Surgical History: Procedure Laterality Date BACK SURGERY CHOLECYSTECTOMY INJECTION BLOCK EPIDURAL STEROID LUMBAR/SACRAL: left L 5,1 nroot Left 09/23/2020 Performed by Titus Pritchett MD at [facility] INJECTION BLOCK EPIDURAL STEROID LUMBAR/SACRAL: Left L 5/ Nroot Left 10/28/2020 Performed by Titus Pritchett MD at [facility] INJECTION BLOCK NERVE MEDIAL BRANCH: bilat L 1/2 5/ Bilateral 04/14/2021 Performed by Titus Pritchett MD at [facility] INJECTION BLOCK NERVE MEDIAL BRANCH: bilat L 1/2 _ 11/19 Bilateral 03/03/2021 Performed by Titus Pritchett MD at [facility] INJECTION BLOCK SACROILIAC JOINT Bilateral 12/14/2022 Performed by Titus Pritchett MD at [facility] INJECTION BLOCK SACROILIAC JOINT Bilateral 11/03/2021 Performed by Titus Pritchett MD at [facility] INJECTION BLOCK SACROILIAC JOINT Bilateral 09/29/2021 Performed by Titus Pritchett MD at [facility] LUMBAR OR SACRAL EPIDURAL BLOCK WITH STEROIDS: L12 DANA N/A 09/25/2019 Performed by Titus Pritchett MD at [facility] LUMBAR OR SACRAL EPIDURAL BLOCK WITH STEROIDS: L12 DANA N/A 08/28/2019 Performed by Titus Pritchett MD at [facility] INJECTION SPINE TRANSFORAMINAL: right L 1,2 Nroot Right 09/13/2023 Performed by Titus Pritchett MD at [facility] NECK SURGERY Fusion C4-7 OPEN FUNCTIONAL RHINOPLASTY SEPTOPLASTY NOSE WITH REPAIR OF TURBINATE FRACTURE N/A 03/11/2023 Performed by Marlee Vazquez DO at [facility] RADIOFREQUENCY ABLATION SPINAL: left L 1/2 _ 11/19 Left 10/12/2022 Performed by Titus Pritchett MD at [facility] RADIOFREQUENCY ABLATION SPINAL: left L 1/2 _11/19 Left 06/23/2021 Performed by Titus Pritchett MD at [facility] RADIOFREQUENCY ABLATION SPINAL: left SI Left 12/01/2021 Performed by Titus Pritchett MD at [facility] RADIOFREQUENCY ABLATION SPINAL: right L 1/2 _ 11/19 Right 09/28/2022 Performed by Titus Pritchett MD at [facility] RADIOFREQUENCY ABLATION SPINAL: right L 1/2 _11/19 Right 06/05/2021 Performed by Titus Pritchett MD at [facility] RADIOFREQUENCY ABLATION SPINAL: right SI Right 12/15/2021 Performed by Titus Pritchett MD at [facility] REDUCTION TURBINATE Bilateral 03/11/2023 Performed by Marlee Vazquez DO at [facility] Allergies Allergen Reactions Penicillins Hives Unknown [...] Interpersonal Safety: Unknown (10/10/2023) [facility] Humiliation, Afraid, Rape, and Kick questionnaire [...] They will be taught by the stimulator merchandiser retail representative how to use a handheld controller to [...] Servin 01/02/24 1247 documented in this encounter [employer] 01-02-2024 Instructions Abril Durán CNA - 01/02/2024 [...] pain. However, you should contact your [employer] merchandiser retail representative to discuss that the stimulator is not [...] stimulator unit, call your spinal cord stimulator merchandiser retail representative (you will be provided with contact information). Be sure to use this trial period to the fullest by using as many programs and settings as possible. documented in this encounter [facility] 12-25-2023 History of Present illness Narrative Images from the original note were not included. [address] [place] [phone] Patient: Laxmi Torres Date of : 1975 [...] Visit via Real-time Synchronous Audiovisual Provider Location: [facility] [address] [place] [phone] Patient Location: Patient's home Video Visit Consent [...] that there are some limitations compared to [id number] evaluations. The patient consented to the presence of additional virtual and/or in-person participants. We elected to proceed. JUSTIN UNDERWOOD MD Family Medicine Physician [facility] Medicine / [facility] 12/25/23 This note was completed with voice recognition software. The document was reviewed for errors however some may still be present. Please do not hesitate to contact/Epic ms the author to verify any questions/concerns. documented in this encounter [facility] 12-25-2023 Instructions Justin Underwood MD - 12/25/2023 [...] for Back Pain documented in this encounter [facility] 11-27-2023 Miscellaneous Notes Pt.s career law clerk Marco called in requesting we send a referral for spinal cord stimulator to [facility] next door. Pt was originally going to his personal Therapist however Dr. Cherry is booked out 7 months. Pt would like to get in and seen as soon as possible. When calling to schedule they should call Marco [phone] Thank you A referral was faxed to [facility] and confirmation was received documented in this encounter [facility] 11-27-2023 Telephone encounter Note Pt.s career law clerk Marco called in requesting we send a referral for spinal cord stimulator to [facility] next door. Pt was originally going to his personal Therapist however Dr. Cherry is booked out 7 months. Pt would like to get in and seen as soon as possible. When calling to schedule they should call [employer] [phone] Thank you [facility] 11-27-2023 Telephone encounter Note A referral was faxed to [facility] and confirmation was received [facility] 10-29-2023 History of Present illness Narrative [facility] [address] [place] [address] Patient: Laxmi Torres Sex: male : 1975 Age: 47 y.o. PCP: JUSTIN UNDERWOOD MD 10/29/2023 Laxmi Torres is here for a(n) follow up after seeing Neurosurgery at [facility]. Patient reports he was told he is [...] is a chronic (2016 (or before per hyperion analyst)) problem. The current episode started more than [...] Anxiety Autism Back problem Bipolar I disorder ([facility]) 01/17/2017 Chipped tooth upper molar chipped Chronic pain disorder Chronic sinusitis COVID-2019 Depression Developmental delay disorder Deviated nasal septum 07/30/2022 Diabetes mellitus, type 2 ([facility]) Disc displacement, lumbar 08/20/2019 DNS (deviated nasal septum) alcohol syndrome GERD (gastroesophageal reflux disease) Hemorrhoids without complication 08/12/2020 Hip pain, bilateral Hyperlipidemia Hypersomnia Hypertension Hypokalemia Impulse control disorder in adult Injury of back Intellectual functioning disability 07/02/2011 Leukopenia 03/04/2023 Low back pain Lumbar post-laminectomy syndrome 08/06/2011 Mild oppositional defiant disorder with angry or irritable mood Nasal congestion Nasal turbinate hypertrophy Neck pain Lakewood's syndrome Obstructive sleep apnea syndrome 07/02/2011 Seizure disorder ([facility]) states in childhood, denies seizures as an adult Sleep apnea Smoker Spinal stenosis of lumbar region 08/2023 Tachycardia 08/12/2020 Past Surgical History: Procedure Laterality Date BACK SURGERY CHOLECYSTECTOMY INJECTION BLOCK EPIDURAL STEROID LUMBAR/SACRAL: left L 5,1 nroot Left 09/23/2020 Performed by Titus Pritchett MD at [facility] IN[facility]CTION BLOCK EPIDURAL STEROID LUMBAR/SACRAL: Left L 5/1 Nroot Left 10/28/2020 Performed by Titus Pritchett MD at [facility] INJECTION BLOCK NERVE MEDIAL BRANCH: bilat L 1/2 5/ Bilateral 04/14/2021 Performed by Titus Pritchett MD at [facility] INJECTION BLOCK NERVE MEDIAL BRANCH: bilat L 1/2 _ / Bilateral 03/03/2021 Performed by Titus Pritchett MD at [facility] INJECTION BLOCK SACROILIAC JOINT Bilateral 12/14/2022 Performed by Titus Pritchett MD at [facility] INJECTION BLOCK SACROILIAC JOINT Bilateral 11/03/2021 Performed by Titus Pritchett MD at [facility] INJECTION BLOCK SACROILIAC JOINT Bilateral 09/29/2021 Performed by Titus Pritchett MD at [facility] INJECTION LUMBAR OR SACRAL EPIDURAL BLOCK WITH STEROIDS: L12 DANA N/A 09/25/2019 Performed by Titus Pritchett MD at [facility] LUMBAR OR SACRAL EPIDURAL BLOCK WITH STEROIDS: L12 DANA N/A 08/28/2019 Performed by iTtus Pritchett MD at [facility] SPINE TRANSFORAMINAL: right L 1,2 Nroot Right 09/13/2023 Performed by Titus Pritchett MD at [facility] NECK SURGERY Fusion C4-7 OPEN FUNCTIONAL RHINOPLASTY SEPTOPLASTY NOSE WITH REPAIR OF TURBINATE FRACTURE N/A 03/11/2023 Performed by Marlee Vazquez DO at [facility] RADIOFREQUENCY ABLATION SPINAL: left L /2 _ 11/19 Left 10/12/2022 Performed by Titus Pritchett MD at [facility] RADIOFREQUENCY ABLATION SPINAL: left L 1/2 _11/19 Left 06/23/2021 Performed by Titus Pritchett MD at [facility] RADIOFREQUENCY ABLATION SPINAL: left SI Left 12/01/2021 Performed by Titus Pritchett MD at [facility] RADIOFREQUENCY ABLATION SPINAL: right L /2 _ 11/19 Right 09/28/2022 Performed by Titus Pritchett MD at [facility] RADIOFREQUENCY ABLATION SPINAL: right L /2 _11/19 Right 06/05/2021 Performed by Titus Pritchett MD at [facility] RADIOFREQUENCY ABLATION SPINAL: right SI Right 12/15/2021 Performed by Titus Pritchett MD at [facility] REDUCTION TURBINATE Bilateral 03/11/2023 Performed by Marlee Vazquez DO at [facility] Allergies Allergen Reactions Penicillins Hives Unknown reaction [...] Servin 10/31/23 1430 documented in this encounter [facility] 10-29-2023 Instructions Abril Durán CNA - 10/29/2023 2:30 PM EDT documented in this encounter [facility] 10-24-2023 Miscellaneous Notes Patient called into the [...] go over results. documented in this encounter [facility] 10-24-2023 Telephone encounter Note Patient called into the office and was asking about his results for his labs [facility] 10-24-2023 Telephone encounter Note His labs are similar/stable to last time he had them done. Nothing urgent. But If has questions we can setup telemed in the next 1-2 months to review. We do need to dsicuss lifestyle modification and perhaps some medications/supplments to help his sugars and lipids Please call and notify patient. Thanks, JUSTIN UNDERWOOD MD 10/25/23 [facility] 10-24-2023 Telephone encounter Note Called patient and got him scheduled for appointment in December to go over results. [facility] 10-14-2023 Miscellaneous Notes Patient called and states [...] from the surgeon. documented in this encounter [facility] 10-14-2023 Telephone encounter Note Patient called and [...] Marco, be called to set up appointment. [facility] 10-14-2023 Telephone encounter Note Noted. Will need notes from the surgeon. [facility] 10-14-2023 Miscellaneous Notes ED Outreach This documentation is being used for Transition of Care purposes: Yes/No: Yes ED Outreach Date: October 14, 2023 ED Outreach Method: COMMUNICATION METHOD: Telephone ED Outreach Attempt: first ED Outreach Outcome: Contacted Patient Name of ED Facility: [facility] Date of ED Discharge: 10/13/2023 Discharge Diagnosis: sciatica of right side ED Chief Complaint: hip pain Current Symptom Status: continuing- spoke with patient's director long term care, hipaa verified. He has not spoken with [...] with additional concerns. documented in this encounter [facility] 10-14-2023 Telephone encounter Note ED Outreach This documentation is being used for Transition of Care purposes: Yes/No: Yes ED Outreach Date: October 14, 2023 ED Outreach Method: COMMUNICATION METHOD: Telephone ED Outreach Attempt: first ED Outreach Outcome: Contacted Patient Name of ED Facility: [facility] Date of ED Discharge: 10/13/2023 Discharge Diagnosis: sciatica of right side ED Chief Complaint: hip pain Current Symptom Status: continuing- spoke with patient's director long term care, hipaa verified. He has not spoken with [...] will contact the office with additional concerns. [employer] 10-10-2023 Note SUBJECTIVE: Chief complaint: Back pain. History of present illness: Accompanied by shelter caregiver Marco Gomez today. Return visit for [...] Past Medical History: Diagnosis Date Diabetes mellitus ([facility]) Hypertension Seizures (CMS/HCC) Past Surgical History: Procedure Laterality Date ANTERIOR [...] Respirations regular and (more content not included)... [facility] 10-03-2023 History of Present illness Narrative [facility] [address] [place] [address] Patient: Laxmi Torres Sex: male : 1975 [...] is a chronic (2016 (or before per hyperion analyst)) problem. The current episode started more than [...] Anxiety Autism Back problem Bipolar I disorder ([facility]) 01/17/2017 Chipped tooth upper molar chipped Chronic pain disorder Chronic sinusitis COVID-2019 Depression Developmental delay disorder Deviated nasal septum 07/30/2022 Diabetes mellitus, type 2 ([facility]) Disc displacement, lumbar 08/20/2019 DNS (deviated nasal septum) alcohol syndrome GERD (gastroesophageal reflux disease) Hemorrhoids without complication 08/12/2020 Hip pain, bilateral Hyperlipidemia Hypersomnia Hypertension Hypokalemia Impulse control disorder in adult Injury of back Intellectual functioning disability 07/02/2011 Leukopenia 03/04/2023 Low back pain Lumbar post-laminectomy syndrome 08/06/2011 Mild oppositional defiant disorder with angry or irritable mood Nasal congestion Nasal turbinate hypertrophy Neck pain Lakewood's syndrome Obstructive sleep apnea syndrome 07/02/2011 Seizure disorder ([facility]) states in childhood, denies seizures as an adult Sleep apnea Smoker Spinal stenosis of lumbar region 08/2023 Tachycardia 08/12/2020 Past Surgical History: Procedure Laterality Date BACK SURGERY CHOLECYSTECTOMY INJECTION BLOCK EPIDURAL STEROID LUMBAR/SACRAL: left L 5,1 nroot Left 09/23/2020 Performed by Titus Pritchett MD at [facility] INJECTION BLOCK EPIDURAL STEROID LUMBAR/SACRAL: Left L 5/1 Nroot Left 10/28/2020 Performed by Titus Pritchett MD at [facility] INJECTION BLOCK NERVE MEDIAL BRANCH: bilat L 1/2 / Bilateral 04/14/2021 Performed by Titus Pritchett MD at [facility] INJECTION BLOCK NERVE MEDIAL BRANCH: bilat L 1/2 _ 11/19 Bilateral 03/03/2021 Performed by Titus Pritchett MD at [facility] INJECTION BLOCK SACROILIAC JOINT Bilateral 12/14/2022 Performed by Titus Pritchett MD at [facility] INJECTION BLOCK SACROILIAC JOINT Bilateral 11/03/2021 Performed by Titus Pritchett MD at [facility] INJECTION BLOCK SACROILIAC JOINT Bilateral 09/29/2021 Performed by Titus Pritchett MD at [facility] LUMBAR OR SACRAL EPIDURAL BLOCK WITH STEROIDS: L12 DANA N/A 09/25/2019 Performed by Titus Pritchett MD at [facility] LUMBAR OR SACRAL EPIDURAL BLOCK WITH STEROIDS: L12 DANA N/A 08/28/2019 Performed by Titus Pritchett MD at [facility] SPINE TRANSFORAMINAL: right L 1,2 Nroot Right 09/13/2023 Performed by Titus Pritchett MD at [facility] NECK SURGERY Fusion C4-7 OPEN FUNCTIONAL RHINOPLASTY SEPTOPLASTY NOSE WITH REPAIR OF TURBINATE FRACTURE N/A 03/11/2023 Performed by Marlee Vazquez DO at [facility] RADIOFREQUENCY ABLATION SPINAL: left L 1/2 _ 11/19 Left 10/12/2022 Performed by Titus Pritchett MD at [facility] RADIOFREQUENCY ABLATION SPINAL: left L 1/2 _11/19 Left 06/23/2021 Performed by Titus Pritchett MD at [facility] RADIOFREQUENCY ABLATION SPINAL: left SI Left 12/01/2021 Performed by Titus Pritchett MD at [facility] RADIOFREQUENCY ABLATION SPINAL: right L 1/2 _ 11/19 Right 09/28/2022 Performed by Titus Pritchett MD at [facility] RADIOFREQUENCY ABLATION SPINAL: right L 1/2 _11/19 Right 06/05/2021 Performed by Titus Pritchett MD at [facility] RADIOFREQUENCY ABLATION SPINAL: right SI Right 12/15/2021 Performed by Titus Pritchett MD at [facility] REDUCTION TURBINATE Bilateral 03/11/2023 Performed by Marlee Vazquez DO at [facility] Allergies Allergen Reactions Penicillins Hives Unknown [...] complete. Abril Durán CNA 10/03/23 1427 BRUCE Servni 10/10/23 120 documented in this encounter [facility] [place] 09-25-2023 History of Present illness Narrative Images from the original note were not included. [address] [place] [phone] Patient: Laxmi Torres Date of : 1975 [...] note new stressor at the facility with supervisor records change with worker's. Tylenol does help resolve the [...] complication, without long-term current use of insulin ([facility]) - CBC auto differential; Future - Comprehensive metabolic panel; Future - Lipid profile; Future - Hemoglobin A1c; Future - Valproic acid level, free; Future Parkinson's disease Schizoaffective disorder, depressive type ([facility]) Seizure disorder ([facility]) - Valproic acid level, free; Future Other orders - omeprazole (PriLOSEC) 20 mg capsule; Take 1 capsule (20 mg total) by mouth 2 (two) times a day as needed (pain). Patient has extensive list of medications which were reviewed, they do match up to her [facility] EMR present. We did make some modifications [...] condition. JUSTIN UNDERWOOD MD Family Medicine Physician [facility] / [facility] 09/25/23 This note was completed with voice recognition software. The document was reviewed for errors however some may still be present. Please do not hesitate to contact/[facility] the author to verify any questions/concerns. [facility]23 Note Hypertension is well controlled with toprol [facility] 09-24-2023 Note Increase toprol to 7 5 mg daily for intermittent tachycardia that pt feels [facility] 09-24-2023 Note UTP CARDIOLOGY PROGR ESS NOTE [...] delay disorder Diabetes mellitus type 2, controlled ([facility]) alcohol syndrome GERD (gastroesophageal reflux disease) Hearing loss Hip pain, bilateral Hyperlipidemia Hypersomnia Hypertension Hypokalemia Impulse control disorder in adult Injury of back Low back pain Mild oppositional defiant disorder with angry or irritable mood Neck pain Sierra's syndrome Seizure disorder ([facility]) Sleep apnea Visit Vitals BP 105/73 (BP [...] (six) hours if needed for indigestion. [DISCONTINUED] fyjlilizwv-kiszbjoknuisf-jmhl 50-325-40 mg tablet Take 1 tablet by [...] (Claritin) 10 m (more content not included)... [facility] 09-24-2023 Note Patient here for 1 y [...] All other systems reviewed and are negative. [facility] 09-16-2023 Miscellaneous Notes Pt had right L 1, 2 nerve root on 09/13/2023, his right leg pain helped greatly but pain returned today. Right hip, back of leg, right foot pain 02/28. Current treatment is tylenol 500 mg every once in a while. Informed pt he is able to take tylenol x2 tab every 8 hours, add OTC pain relieving ointments/creams, patches, heat/ice. PVU, will start taking tylenol more frequent and has [employer]works pain relief cream to use. documented in this encounter [facility] 09-16-2023 Telephone encounter Note Pt had right L 1, 2 nerve root on 09/13/2023, his right leg pain helped greatly but pain returned today. Right hip, back of leg, right foot pain 02/28. Current treatment is tylenol 500 mg every once in a while. Informed pt he is able to take tylenol x2 tab every 8 hours, add OTC pain relieving ointments/creams, patches, heat/ice. PVU, will start taking tylenol more frequent and has [employer] pain relief cream to use. [facility] 09-03-2023 History of Present illness Narrative [facility] [address] [place] [address] Patient: Laxmi Torres Sex: male : 1975 [...] is a chronic (2016 (or before per hyperion analyst)) problem. The current episode started more than [...] Anxiety Autism Back problem Bipolar I disorder ([facility]) 01/17/2017 Chipped tooth upper molar chipped Chronic pain disorder Chronic sinusitis COVID-2019 Depression Developmental delay disorder Deviated nasal septum 07/30/2022 Diabetes mellitus, type 2 ([facility]) Disc displacement, lumbar 08/20/2019 DNS (deviated nasal [...] Obstructive sleep apnea syndrome 07/02/2011 Seizure disorder ([facility]) states in childhood, denies seizures as an adult Sleep apnea Smoker Tachycardia 08/12/2020 Past Surgical History: Procedure Laterality Date BACK SURGERY CHOLECYSTECTOMY INJECTION BLOCK EPIDURAL STEROID LUMBAR/SACRAL: left L 5,1 nroot Left 09/23/2020 Performed by Titus Pritchett MD at [facility] INJECTION BLOCK EPIDURAL STEROID LUMBAR/SACRAL: Left L 5/1 Nroot Left 10/28/2020 Performed by Titus Pritchett MD at [facility] INJECTION BLOCK NERVE MEDIAL BRANCH: bilat L 1/2 5/ Bilateral 04/14/2021 Performed by Titus Pritchett MD at [facility] INJECTION BLOCK NERVE MEDIAL BRANCH: bilat L 1/2 _ / Bilateral 03/03/2021 Performed by Titus Pritchett MD at [facility] INJECTION BLOCK SACROILIAC JOINT Bilateral 12/14/2022 Performed by Titus Pritchett MD at [facility] INJECTION BLOCK SACROILIAC JOINT Bilateral 11/03/2021 Performed by Titus Pritchett MD at [facility] INJECTION BLOCK SACROILIAC JOINT Bilateral 09/29/2021 Performed by Titus Pritchett MD at [facility] INJECTION LUMBAR OR SACRAL EPIDURAL BLOCK WITH STEROIDS: L12 DANA N/A 09/25/2019 Performed by Titus Pritchett MD at [facility] INJECTION LUMBAR OR SACRAL EPIDURAL BLOCK WITH STEROIDS: L12 DANA N/A 08/28/2019 Performed by Titus Pritchett MD at [facility] NECK SURGERY Fusion C4-7 OPEN FUNCTIONAL RHINOPLASTY SEPTOPLASTY NOSE WITH REPAIR OF TURBINATE FRACTURE N/A 03/11/2023 Performed by Marlee Vazquez DO at [facility] RADIOFREQUENCY ABLATION SPINAL: left L 07/23 _ 11/19 Left 10/12/2022 Performed by Titus Pritchett MD at [facility] RADIOFREQUENCY ABLATION SPINAL: left L 07/23 _11/19 Left 06/23/2021 Performed by Titus Pritchett MD at [facility] RADIOFREQUENCY ABLATION SPINAL: left SI Left 12/01/2021 Performed by Titus Pritchett MD at [facility] RADIOFREQUENCY ABLATION SPINAL: right L 07/23 _ 11/19 Right 09/28/2022 Performed by Titus Pritchett MD at [facility] RADIOFREQUENCY ABLATION SPINAL: right L 07/23 _11/19 Right 06/05/2021 Performed by Titus Pritchett MD at [facility] RADIOFREQUENCY ABLATION SPINAL: right SI Right 12/15/2021 Performed by Titus Pritchett MD at [facility] REDUCTION TURBINATE Bilateral 03/11/2023 Performed by Marlee Vazquez DO at [facility] Allergies Allergen Reactions Penicillins Hives Unknown reaction [...] Servin 09/03/23 1516 documented in this encounter [facility] 09-03-2023 Instructions Abril Durán CNA - 09/03/2023 1:45 PM EST Epidural Steroid [...] a safety precaution, you must have a funeral car driver after a lumbar nerve root injection, even [...] back to normal. documented in this encounter [employer] 08-29-2023 History of Present illness Narrative Images [...] Dionne Barlow DPM documented in this encounter [facility] 08-29-2023 Instructions Dionne Barlow DPM - 08/29/2023 1:30 PM EST As noted documented in this encounter [facility] 08-22-2023 Miscellaneous Notes Call received from patient informing this office that he is scheduled for MRI Saturday08/26/2023. Patient asks mortgage underwriter to call caregiver, Flory, to schedule follow up appointment.. Call placed to Flory and follow up appointment was made. Patient called to inform this office that he had his MRI today. Patient is informed that he is scheduled for follow up appointment September 03 at 1:45. Patient verbalized understanding. documented in this encounter [facility] 08-22-2023 Telephone encounter Note Call received from patient informing this office that he is scheduled for MRI Saturday08/26/2023. Patient asks mortgage underwriter to call caregiver, Flory, to schedule follow up appointment.. Call placed to Flory and follow up appointment was made. [facility] 08-22-2023 Telephone encounter Note Patient called to inform this office that he had his MRI today. Patient is informed that he is scheduled for follow up appointment September 03 at 1:45. Patient verbalized understanding. [facility] Evaluation note Diagnosis Type 2 diabetes mellitus without complication, without long-term current use of insulin ([facility])- Primary Dermatophytosis of nail Dystrophic nail Other specified disease of nail Pain around toenail [facility] Parkinson's disease ([facility] Primary Type 2 diabetes mellitus treated without insulin ([facility]) Disc displacement, lumbar Displacement of lumbar intervertebral disc without myelopathy Preop examination- Primary Unspecified pre-operative examination Hypertension, unspecified type Type 2 diabetes mellitus without complication, without long-term current use of insulin ([facility]) documented in this encounter [facility]* Diagnosis Preop examination- Primary Unspecified pre-operative examination Hypertension, unspecified type Type 2 diabetes mellitus without complication, without long-term current use of insulin ([facility]) documented in this encounter [facility] System[facility] note* Diagnosis Disc displacement, lumbar Displacement of lumbar intervertebral disc without myelopathy Type 2 diabetes mellitus without complication, without long-term current use of insulin ([facility]) documented in this encounter [facility] SystemEvaluation note* Diagnosis Hypertriglyceridemia- Primary Pure hyperglyceridemia Hypercholesteremia Pure hypercholesterolemia documented in this encounter [facility]* Diagnosis Primary cough headache Disc displacement, lumbar Displacement of lumbar intervertebral disc without myelopathy Type 2 diabetes mellitus without complication, without long-term current use of insulin ([facility]) documented in this encounter [facility]* Diagnosis Lumbar post-laminectomy syndrome- Primary Postlaminectomy syndrome, lumbar region documented in this encounter [facility]* Diagnosis Anxiety attack- Primary Panic disorder without agoraphobia documented in this encounter [facility]* Diagnosis Disc displacement, lumbar Displacement of lumbar intervertebral disc without myelopathy documented in this encounter [facility]* Diagnosis Disc displacement, lumbar Displacement of lumbar intervertebral disc without myelopathy documented in this encounter [facility]* Diagnosis Disc displacement, lumbar Displacement of lumbar intervertebral disc without myelopathy documented in this encounter [facility]* Diagnosis Spinal stenosis of lumbar region with neurogenic claudication- Primary Spinal stenosis of lumbar region- Primary Spinal stenosis of lumbar region with neurogenic claudication documented in this encounter [facility]* Diagnosis Lumbar post-laminectomy syndrome- Primary Postlaminectomy syndrome, lumbar region Parkinson's disease ([facility] Primary Type 2 diabetes mellitus treated without insulin ([facility]) Type 2 diabetes mellitus without complication, without long-term current use of insulin ([facility]) Lumbar post-laminectomy syndrome Postlaminectomy syndrome, lumbar region documented in this encounter [facility]* Diagnosis Lumbar post-laminectomy syndrome- Primary Postlaminectomy syndrome, lumbar region Disc displacement, lumbar Displacement of lumbar intervertebral disc without myelopathy Lumbar post-laminectomy syndrome Postlaminectomy syndrome, lumbar region documented in this encounter [facility]Evaluation [facility]* Diagnosis Type 2 diabetes mellitus without complication, without long-term current use of insulin ([facility])- Primary Parkinson's disease ([facility]) Schizoaffective disorder, depressive type ([facility]) Schizoaffective disorder, unspecified condition Seizure disorder ([facility]) Unspecified epilepsy without mention of intractable epilepsy documented in this encounter [facility]* Diagnosis Spinal stenosis of lumbar region with neurogenic claudication- Primary documented in this encounter [facility]* Diagnosis Disc displacement, lumbar- Primary Displacement of lumbar intervertebral disc without myelopathy documented in this encounter [facility] note* Diagnosis Disc displacement, lumbar Displacement of lumbar intervertebral disc without myelopathy [facility]* Diagnosis Disc displacement, lumbar Displacement of lumbar intervertebral disc without myelopathy documented in this encounter [facility]* Diagnosis Lumbar post-laminectomy syndrome- Primary Postlaminectomy syndrome, lumbar region Spinal stenosis of lumbar region with neurogenic claudication documented in this encounter [facility]* Diagnosis MARK (obstructive sleep apnea)- Primary Obstructive sleep apnea (adult) (pediatric) Primary cough headache Episodic tension-type headache, not intractable Tobacco use documented in this encounter [facility] note* Diagnosis Postlaminectomy syndrome of lumbar region- Primary Postlaminectomy syndrome, lumbar region documented in this encounter [facility]* Diagnosis Disc displacement, lumbar Displacement of lumbar intervertebral disc without myelopathy documented in this encounter [facility]* Diagnosis Dysuria- Primary documented in this encounter [facility]* Diagnosis Prophylactic antibiotic- Primary Encounter for long-term (current) use of antibiotics documented in this encounter [facility] note* Diagnosis Postlaminectomy syndrome of lumbar region- Primary Postlaminectomy syndrome, lumbar region documented in this encounter [facility]* Diagnosis Disc displacement, lumbar- Primary Displacement of lumbar intervertebral disc without myelopathy Type 2 diabetes mellitus without complication, without long-term current use of insulin ([facility]) Obesity, morbid ([facility]) Morbid obesity Hypercholesteremia Pure hypercholesterolemia Immunization counseling Encounter for immunization documented in this encounter [facility]* Diagnosis Disc displacement, lumbar Displacement of lumbar intervertebral disc without myelopathy documented in this encounter [facility]* Diagnosis Lumbar post-laminectomy syndrome- Primary Postlaminectomy syndrome, lumbar region documented in this encounter [facility]* Diagnosis Hypertriglyceridemia Pure hyperglyceridemia documented in this encounter [facility]* Diagnosis Disc displacement, lumbar Displacement of lumbar intervertebral disc without myelopathy documented in this encounter [facility]* Diagnosis Parkinson's disease ([facility])- Primary Type 2 diabetes mellitus treated without insulin ([facility]) Type 2 diabetes mellitus without complication, without long-term current use of insulin ([facility]) documented in this encounter [facility]* Diagnosis Parkinson's disease ([facility])- Primary Type 2 diabetes mellitus treated without insulin ([facility]) Chronic GERD Seasonal allergies Allergic rhinitis, cause unspecified Left shoulder pain, unspecified chronicity documented in this encounter [facility]Evaluation [facility]* Diagnosis Left shoulder pain, unspecified chronicity Left shoulder pain, unspecified chronicity documented in this encounter [facility]* Diagnosis Lumbar post-laminectomy syndrome- Primary Postlaminectomy syndrome, lumbar region documented in this encounter [facility]* Diagnosis Disc displacement, lumbar Displacement of lumbar intervertebral disc without myelopathy documented in this encounter [facility]Evaluation [facility]* Diagnosis Gastroesophageal reflux disease with esophagitis without hemorrhage- Primary documented in this encounter [facility]* Diagnosis Trapezius muscle strain, left, initial encounter- Primary [facility] (obstructive sleep apnea) Justin Underwood MD [address] [facility], [place] [address] Angelina Devlin DO [address] [place] [address] Referral ID Status Reason Start Date Expiration Date Visits Requested Visits Authorized [id number] Pending Review Specialty Services Required 03/09/2024 03/09/2025 1 1 [facility] Summary Purpose Family History No Family History [...] room: INSERTION STIMULATOR SPINAL CORD-TRIAL Guillaume Steve, BRUCE [address], [address] [place] [id number] Referral ID Status Reason Start Date Expiration Date V isits Requested Visits Authorized [id number] Pending Review 01/02/2024 01/01/2025 1 1 Specialty Diagnoses / Procedures Referred By Contac t Referred To Contact Diagnoses Spinal stenosis of lumbar region with neurogenic claudication Procedures Case request operating room: INJECTION SPINE TRANSFORAMINAL: right L12 Guillaume Steve, PA [address], [address] [place] [id number] Referral ID Status Reason Start Date Expiration Date V isits Requested Visits Authorized [id number] Pending Review 09/03/2023 09/02/2024 1 1 Specialty Diagnoses / Procedures Referred By Contac t Referred To Contact Diagnoses Disc displacement, lumbar Procedures Disability/Handicap Justin Edwards MD [address] [place] [address] Referral ID Status Reason Start Date Expiration Date V isits Requested Visits Authorized [id number] Pending Review 10/14/2023 10/13/2024 1 1 Specialty Diagnoses / Procedures Referred By Contac t Referred To Contact Diagnoses Postlaminectomy syndrome of lumbar region Procedures Case request operating room: INSERTION STIMULATOR SPINAL CORD Guillaume Steve, BRUCE [address], [address] [place] [id number] Referral ID Status Reason Start Date Expiration Date V isits Requested Visits Authorized [id number] Pending Review 03/12/2024 03/12/2025 1 1 Additional Source Comments (unrecognized sect ion and content) No Status Records FoundNo Status Records FoundNo Status Records FoundNo Status Records FoundNo Status Records FoundNo Status Records FoundNo Status Records FoundNo Status Records FoundNo Status Records FoundNo Status Records FoundNo Status Records Found INFORMATION SOURCE (unrecogn ized section and content) DATE CREATED AUTHOR 01/14/2018 [facility] DATE CREATED AUTHOR AUTHOR'S ORGANIZ ATION 01/15/2018 [facility] DATE CREATED AUTHOR AUTHOR'S ORGANIZ ATION 11/23/2020 [facility] DATE CREATED AUTHOR AUTHOR'S ORGANIZ ATION 11/02/2021 [facility] DATE CREATED AUTHOR AUTHOR'S ORGANIZ ATION 12/23/2021 [facility] DATE CREATED AUTHOR AUTHOR'S ORGANIZ ATION 11/17/2022 [facility] DATE CREATED AUTHOR AUTHOR'S ORGANIZ ATION 10/11/2023 [facility] DATE CREATED AUTHOR AUTHOR'S ORGANIZ ATION 02/06/2024 [facility] DATE CREATED AUTHOR AUTHOR'S ORGANIZ ATION 03/18/2024 [facility] DATE CREATED AUTHOR AUTHOR'S ORGANIZ ATION 09/28/2024 [facility] DATE CREATED AUTHOR AUTHOR'S ORGANIZ ATION 10/05/2024 [facility] Care Teams (unrecognized sec tion and content) Aircraft Dispatcher Relationship Specialty Start Date End Date Justin Underwood MD [address] [place] [address] PCP - General Family Medicine 08/29/23 Aircraft Dispatcher Relationship Specialty Start Date End Date Justin Underwood MD [address] [place] [address] PCP - General Family Medicine 08/29/23 Aircraft Dispatcher Relationship Specialty Start Date End Date Justin Underwood MD [address] [place] [address] PCP - General Internal Medicine 01/26/24 [facility] Nurse - [employer] 12/17/23 Aircraft Dispatcher Relationship Specialty Start Date End Date Justin Underwood MD [address], [place] [address] PCP - General Internal Medicine 01/26/24 [facility] Nurse - [employer] [facility] 12/17/23 Aircraft Dispatcher Relationship Specialty Start Date End Date Justin Underwood MD [address], [place] [address] PCP - General Internal Medicine 01/26/24 [facility] Nurse - [employer] [facility] 12/17/23 Aircraft Dispatcher Relationship Specialty Start Date End Date Justin Underwood MD [address], [place] [address] PCP - General Internal Medicine 03/04/23 Aircraft Dispatcher Relationship Specialty Start Date End Date Justin Underwood MD [address], [place] [address] PCP - General Internal Medicine 03/04/23 Aircraft Dispatcher Relationship Specialty Start Date End Date Justin Underwood MD [address], [place] [address] PCP - General Internal Medicine 03/04/23 Aircraft Dispatcher Relationship Specialty Start Date End Date Justin Underwood MD [address], [place] [address] PCP - General Internal Medicine 03/04/23 Aircraft Dispatcher Relationship Specialty Start Date End Date Justin Underwood MD [address], [place] [address] PCP - General Internal Medicine 03/04/23 [facility] Nurse - [employer] 12/17/23 Aircraft Dispatcher Relationship Specialty Start Date End Date Justin Underwood MD [address], [place] [address] PCP - General Internal Medicine 03/04/23 Aircraft Dispatcher Relationship Specialty Start Date End Date Justin Underwood MD [address], [place] [address] PCP - General Internal Medicine 03/04/23 [facility] Nurse - [employer] 12/17/23 Aircraft Dispatcher Relationship Specialty Start Date End Date Justin Underwood MD [address], [place] [address] PCP - General Internal Medicine 03/04/23 Aircraft Dispatcher Relationship Specialty Start Date End Date Justin Underwood MD [address], [place] [address] PCP - General Internal Medicine 03/04/23 [facility] Nurse - [employer] 12/17/23 Aircraft Dispatcher Relationship Specialty Start Date End Date Justin Underwood MD [address], [place] [address] PCP - General Internal Medicine 03/04/23 Aircraft Dispatcher Relationship Specialty Start Date End Date Justin Underwood MD [address], [place] [address] PCP - General Internal Medicine 03/04/23 [facility] Nurse - [employer] 12/17/23 Aircraft Dispatcher Relationship Specialty Start Date End Date Justin Underwood MD [address], [place] [address] PCP - General Internal Medicine 03/04/23 Aircraft Dispatcher Relationship Specialty Start Date End Date Justin Underwood MD [address], [place] [address] PCP - General Internal Medicine 03/04/23 [facility] Nurse - [employer] 12/17/23 Aircraft Dispatcher Relationship Specialty Start Date End Date Justin Underwood MD [address], [place] [address] PCP - General Internal Medicine 03/04/23 [facility] Nurse - [employer] 12/17/23 Aircraft Dispatcher Relationship Specialty Start Date End Date Justin Underwood MD [address], [place] [address] PCP - General Internal Medicine 03/04/23 Aircraft Dispatcher Relationship Specialty Start Date End Date Justin Underwood MD [address], [place] [address] PCP - General Internal Medicine 01/26/24 [facility] Nurse [facility] 12/17/23 Aircraft Dispatcher Relationship Specialty Start Date End Date Justin Underwood MD [address], [place] [address] PCP - General Internal Medicine 03/04/23 Aircraft Dispatcher Relationship Specialty Start Date End Date Justin Underwood MD [address], [place] [address] PCP - General Internal Medicine 03/04/23 Aircraft Dispatcher Relationship Specialty Start Date End Date Justin Underwood MD [address], [place] [address] PCP - General Internal Medicine 03/04/23 Aircraft Dispatcher Relationship Specialty Start Date End Date Justin Underwood MD [address], [place] [address] PCP - General Internal Medicine 01/26/24 [facility] Nurse [facility] 12/17/23 Aircraft Dispatcher Relationship Specialty Start Date End Date Justin Underwood MD [address], [place] [address] PCP - General Internal Medicine 03/04/23 Aircraft Dispatcher Relationship Specialty Start Date End Date Justin Underwood MD [address], [place] [address] PCP - General Internal Medicine 03/04/23 Aircraft Dispatcher Relationship Specialty Start Date End Date Justin Underwood MD [address], [place] [address] PCP - General Internal Medicine 03/04/23 Aircraft Dispatcher Relationship Specialty Start Date End Date Justin Underwood MD [address], [place] [address] PCP - General Internal Medicine 01/26/24 [facility] Nurse - [employer] 12/17/23 Aircraft Dispatcher Relationship Specialty Start Date End Date Justin Underwood MD [address], [place] [address] PCP - General Internal Medicine 01/26/24 [facility] Nurse - [employer] 12/17/23 Aircraft Dispatcher Relationship Specialty Start Date End Date Justin Underwood MD [address], [place] [address] PCP - General Internal Medicine 01/26/24 [facility] Nurse - [employer] 12/17/23 Aircraft Dispatcher Relationship Specialty Start Date End Date Justin Underwood MD [address], [place] [address] PCP - General Internal Medicine 01/26/24 [facility] Nurse - [employer] 12/17/23 Aircraft Dispatcher Relationship Specialty Start Date End Date Justin Underwood MD [address], [place] [address] PCP - General Internal Medicine 01/26/24 [facility] Nurse - [employer] 12/17/23 Aircraft Dispatcher Relationship Specialty Start Date End Date Justin Underwood MD [address] [place] [address] PCP - General Internal Medicine 01/26/24 [facility] Nurse - [employer] 12/17/23 Aircraft Dispatcher Relationship Specialty Start Date End Date Justin Underwood MD [address] [place] [address] PCP - General Internal Medicine 01/26/24 [facility] Nurse - [employer] 12/17/23 Aircraft Dispatcher Relationship Specialty Start Date End Date Justin Underwood MD [address] [place] [address] PCP - General Internal Medicine 01/26/24 [facility] Nurse - [employer] 12/17/23 Aircraft Dispatcher Relationship Specialty Start Date End Date Justin Underwood MD [address] [place] [address] PCP - General Internal Medicine 01/26/24 [facility] Nurse - [employer] 12/17/23 Aircraft Dispatcher Relationship Specialty Start Date End Date Justin Underwood MD [address] [place] [address] PCP - General Internal Medicine 01/26/24 [facility] Nurse - [employer] 12/17/23 Aircraft Dispatcher Relationship Specialty Start Date End Date Justin Underwood MD [address], [place] [address] PCP - General Internal Medicine 01/26/24 [facility] Nurse - [employer] 12/17/23 Aircraft Dispatcher Relationship Specialty Start Date End Date Justin Underwood MD [address], [place] [address] PCP - General Internal Medicine 01/26/24 [facility] Nurse - [employer] 12/17/23 Aircraft Dispatcher Relationship Specialty Start Date End Date Justin Underwood MD [address], [place] [address] PCP - General Internal Medicine 01/26/24 [facility] Nurse - [employer] 12/17/23 Reason for Visit [...] Reason Comments Back Pain Shoulder Pain Left Reason Onset Date Comments Med Refill 09/28/2024 Reason Comments Headache FOR RECORDS PERTAINING TO PATIENTS WHO ARE [...] BE BASED ON THE PRIMARY CLINICAL RECORDS. [facility]. provides no warranty or guarantee of the accuracy or completeness of information in this document.
[2024-10-06 19:49] VITALS: O2SAT 99
--- NOTE | 2024-10-06 19:53 | ED_ITS ---
Documented by User: BRUCE Pantoja 10/06/24 21:17 HPI HPI - General Adult General Chief complaint: Headache Stated complaint: headache Time Seen by Provider: 10/06/24 19:33 Source: patient Mode of arrival: walk-in Limitations: no limitations History of Present Illness HPI narrative: This 48-year-old male was brought to the emergency department by a caregiver from his residence in a long term for evaluation of a continued headache. Patient has a history of some developmental delay, seizure disorder, insulin- dependent diabetes, chronic migraines and neck pain. He was seen in this emergency department for a bitemporal and posterior headache 10 days ago. He had a CT scan that was unremarkable. He states he did not receive any relief from any of the medications he was given in the ER, despite documentation in the emergency department showing that he had improvement prior to discharge. He states he followed up with his PCP who prescribed naproxen, however his medication list shows ibuprofen. He states he has been taking the naproxen without any improvement of his headache. He continues to have a bitemporal headache with some radiation into the occiput. He denies any peripheral paresthesias. He has had 2 previous cervical fusions. No fevers or vomiting. He states he does feel nauseous. Related Data Home Medications ?Medication ?Instructions ?Recorded ?Confirmed aspirin 81 mg tablet,delayed 81 mg PO DAILY 02/11/24 02/11/24 release benztropine 1 mg tablet 1 mg PO BID 02/11/24 02/11/24 cetirizine 10 mg tablet 10 mg PO DAILY 02/11/24 02/11/24 divalproex 500 mg tablet,delayed 500 mg PO Q12H 02/11/24 02/11/24 release fenofibrate 54 mg tablet 54 mg PO DAILY 02/11/24 02/11/24 fluticasone propionate 50 2 spray intranasal DAILY 02/11/24 02/11/24 mcg/actuation nasal spray,suspension gabapentin 600 mg tablet 600 mg PO Q8H 02/11/24 02/11/24 metformin 500 mg tablet,extended 500 mg PO BID 02/11/24 02/11/24 release 24 hr metoprolol succinate 50 mg 75 mg PO DAILY 02/11/24 02/11/24 tablet,extended release 24 hr montelukast 10 mg tablet 10 mg PO .hs 02/11/24 02/11/24 omeprazole 20 mg capsule,delayed 20 mg PO BID 02/11/24 02/11/24 release paliperidone 3 mg tablet,extended 3 mg PO DAILY 02/11/24 02/11/24 release 24 hr quetiapine 25 mg tablet 50 mg PO . 02/11/24 02/11/24 quetiapine 300 mg tablet 300 mg PO . 02/11/24 02/11/24 sertraline 100 mg tablet 100 mg PO DAILY 02/11/24 02/11/24 simvastatin 20 mg tablet 20 mg PO . 02/11/24 02/11/24 Previous Rx's ?Medication ?Instructions ?Recorded methylprednisolone 4 mg tablets in 4 mg PO DAILY #21 ea 08/22/24 a dose pack (Medrol (Oli)) Allergies Allergy/AdvReac Type Severity Reaction Status Date / Time Penicillins Allergy Mild Rash Verified 10/06/24 19:43 Sulfa (Sulfonamide Allergy Mild Rash Verified 10/06/24 19:43 Antibiotics) Opioid HPI Opioid Management Most Recent Opioid Data: Last Pain Scale 8 09/26/24 00:02 09/26/24 Review of Systems ROS Constitutional Denies: fever or chills Ears, nose, mouth, and throat Reports: neck pain; Denies: throat pain Cardiovascular Denies: chest pain Respiratory Denies: shortness of breath or cough Gastrointestinal Reports: nausea; Denies: vomiting or diarrhea Musculoskeletal Reports: neck pain; Denies: back pain Integumentary/Breast Denies: rash Neurological Reports: headache; Denies: numbness in extremities or weakness in extremities Hematologic/Lymphatic Denies: easy bruising or easy bleeding PFSH PFS Social History Little interest or pleasure in doing things: not at all Feeling down, depressed, or hopeless: not at all Exam Narrative Exam Narrative: Gen.: Awake, alert, in no distress, extremely talkative Head: Normocephalic, atraumatic ENT: Moist mucous membranes, no photophobia, bilateral TMs clear, no nuchal rigidity or posterior cervical spine tenderness Respiratory: No respiratory distress Extremities: Moves extremities equally, 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 Psych: Normal mood and affect Neuro: No focal neuro deficit Skin: Warm, dry, intact Constitutional Vital Signs, click to edit/add: Last Vital Signs Temp 97.9 F 10/06/24 19:37 Pulse 117 H 10/06/24 19:37 Resp 18 10/06/24 19:37 BP 146/93 H 10/06/24 19:37 Pulse Ox 99 10/06/24 19:49 O2 Del Method Room Air 10/06/24 19:49 Course Vital Signs Vital signs: Vital Signs Temperature 97.9 F 10/06/24 19:37 Pulse Rate 117 H 10/06/24 19:37 Respiratory Rate 18 10/06/24 19:37 Blood Pressure 146/93 H 10/06/24 19:37 Pulse Oximetry 99 10/06/24 19:37 Oxygen Delivery Method Room Air 10/06/24 19:37 Temperature 97.9 F 10/06/24 19:37 Pulse Rate 117 H 10/06/24 19:37 Respiratory Rate 18 10/06/24 19:37 Blood Pressure 146/93 H 10/06/24 19:37 Pulse Oximetry 99 10/06/24 19:49 Oxygen Delivery Method Room Air 10/06/24 19:49 Medical Decision Making MDM Narrative Medical decision making narrative: This patient appears well-hydrated and nontoxic in no distress. He has no photophobia. He is speaking excitedly and loudly. He is smiling, he does not appear in any significant distress or pain on arrival. IV fluids were ordered with medications for his headache. He received toradol, fluids, reglan, benadryl, norflex. He is resting comfortably on reevaluation by attending physician at 2114, however he reports no improvement in headache. He is remedicated with decadron, magnesium and fioricet. Case is turned over to attending physician at this time. SHARED APC VISIT, PHYSICIAN ATTESTATION: [id number] I performed a substantive part of the MDM during the patient?s E/M visit. I personally evaluated and examined the patient. I personally made or approved the documented management plan and acknowledge its risk of complications. Medical Records Medical records reviewed: Yes I reviewed the patient's medical records Discharge Plan Discharge Chief Complaint: Headache Clinical Impression: Headache Patient Disposition: Home, Self-Care Time of Disposition Decision: 22:57 Condition: Good Mode of Transportation: Private Vehicle Prescriptions / Home Meds: No Action methylprednisolone [Medrol (Oli)] 4 mg tablets,dose pack 4 mg PO DAILY Qty: 21 0RF Rx Instructions: take as directed aspirin 81 mg tablet,delayed release (DR/EC) 81 mg PO DAILY benztropine 1 mg tablet 1 mg PO BID cetirizine 10 mg tablet 10 mg PO DAILY divalproex 500 mg tablet,delayed release (DR/EC) 500 mg PO Q12H fenofibrate 54 mg tablet 54 mg PO DAILY fluticasone propionate 50 mcg/actuation spray,suspension 2 spray INTRANASAL DAILY gabapentin 600 mg tablet 600 mg PO Q8H metformin 500 mg tablet extended release 24 hr 500 mg PO BID metoprolol succinate 50 mg tablet extended release 24 hr 75 mg PO DAILY montelukast 10 mg tablet 10 mg PO .hs omeprazole 20 mg capsule,delayed release(DR/EC) 20 mg PO BID paliperidone 3 mg tablet extended release 24 hr 3 mg PO DAILY quetiapine 25 mg tablet 50 mg PO .hs quetiapine 300 mg tablet 300 mg PO .hs sertraline 100 mg tablet 100 mg PO DAILY simvastatin 20 mg tablet 20 mg PO .hs Print Language: Sami Instructions: Acute Headache (ED) Referrals: Reina Underwood ND [Primary Care Provider] - 1 week Documented by User: Carson Jacobson MD 10/06/24 22:58 HPI HPI - General Adult General Chief complaint: Headache Stated complaint: headache Time Seen by Provider: 10/06/24 19:33 Related Data Home Medications ?Medication ?Instructions ?Recorded ?Confirmed aspirin 81 mg tablet,delayed 81 mg PO DAILY 02/11/24 02/11/24 release benztropine 1 mg tablet 1 mg PO BID 02/11/24 02/11/24 cetirizine 10 mg tablet 10 mg PO DAILY 02/11/24 02/11/24 divalproex 500 mg tablet,delayed 500 mg PO Q12H 02/11/24 02/11/24 release fenofibrate 54 mg tablet 54 mg PO DAILY 02/11/24 02/11/24 fluticasone propionate 50 2 spray intranasal DAILY 02/11/24 02/11/24 mcg/actuation nasal spray,suspension gabapentin 600 mg tablet 600 mg PO Q8H 02/11/24 02/11/24 metformin 500 mg tablet,extended 500 mg PO BID 02/11/24 02/11/24 release 24 hr metoprolol succinate 50 mg 75 mg PO DAILY 02/11/24 02/11/24 tablet,extended release 24 hr montelukast 10 mg tablet 10 mg PO .hs 02/11/24 02/11/24 omeprazole 20 mg capsule,delayed 20 mg PO BID 02/11/24 02/11/24 release paliperidone 3 mg tablet,extended 3 mg PO DAILY 02/11/24 02/11/24 release 24 hr quetiapine 25 mg tablet 50 mg PO .hs 02/11/24 02/11/24 quetiapine 300 mg tablet 300 mg PO .hs 02/11/24 02/11/24 sertraline 100 mg tablet 100 mg PO DAILY 02/11/24 02/11/24 simvastatin 20 mg tablet 20 mg PO .hs 02/11/24 02/11/24 Previous Rx's ?Medication ?Instructions ?Recorded methylprednisolone 4 mg tablets in 4 mg PO DAILY #21 ea 08/22/24 a dose pack (Medrol (Oli)) Allergies Allergy/AdvReac Type Severity Reaction Status Date / Time Penicillins Allergy Mild Rash Verified 10/06/24 19:43 Sulfa (Sulfonamide Allergy Mild Rash Verified 10/06/24 19:43 Antibiotics) Opioid HPI Opioid Management Most Recent Opioid Data: Last Pain Scale 8 09/26/24 00:02 09/26/24 PFS PFS Social History Little interest or pleasure in doing things: not at all Feeling down, depressed, or hopeless: not at all Exam Constitutional Vital Signs, click to edit/add: Last Vital Signs Temp 97.9 F 10/06/24 19:37 Pulse 117 H 10/06/24 19:37 Resp 18 10/06/24 19:37 BP 146/93 H 10/06/24 19:37 Pulse Ox 99 10/06/24 19:49 O2 Del Method Room Air 10/06/24 19:49 Course Vital Signs Vital signs: Vital Signs Temperature 97.9 F 10/06/24 19:37 Pulse Rate 117 H 10/06/24 19:37 Respiratory Rate 18 10/06/24 19:37 Blood Pressure 146/93 H 10/06/24 19:37 Pulse Oximetry 99 10/06/24 19:37 Oxygen Delivery Method Room Air 10/06/24 19:37 Temperature 97.9 F 10/06/24 19:37 Pulse Rate 117 H 10/06/24 19:37 Respiratory Rate 18 10/06/24 19:37 Blood Pressure 146/93 H 10/06/24 19:37 Pulse Oximetry 99 10/06/24 19:49 Oxygen Delivery Method Room Air 10/06/24 19:49 Medical Decision Making MDM Narrative Medical decision making narrative: This patient appears well-hydrated and nontoxic in no distress. He has no photophobia. He is speaking excitedly and loudly. He is smiling, he does not appear in any significant distress or pain on arrival. IV fluids were ordered with medications for his headache. He received toradol, fluids, reglan, benadryl, norflex. He is resting comfortably on reevaluation by attending physician at 2114, however he reports no improvement in headache. He is remedicated with decadron, magnesium and fioricet. Case is turned over to attending physician at this time. SHARED APC VISIT, PHYSICIAN ATTESTATION: [id number] I performed a substantive part of the MDM during the patient?s E/M visit. I personally evaluated and examined the patient. I personally made or approved the documented management plan and acknowledge its risk of complications. JK 10:55pm the patient was given numerous medications and did not seem to be feeling improved so he was given 1 mg of IV Dilaudid. He seems to be improved and is able to be discharged home. Findings were discussed with the patient and his caregiver. I have no clinical suspicion of acute intracranial pathology. Differential Diagnosis Differential Diagnosis: Migraine headache, tension headache, nonspecific headache Discharge Plan Discharge Chief Complaint: Headache Clinical Impression: Headache Patient Disposition: Home, Self-Care Time of Disposition Decision: 22:57 Condition: Good Mode of Transportation: Private Vehicle Prescriptions / Home Meds: No Action methylprednisolone [Medrol (Oli)] 4 mg tablets,dose pack 4 mg PO DAILY Qty: 21 0RF Rx Instructions: take as directed aspirin 81 mg tablet,delayed release (DR/EC) 81 mg PO DAILY benztropine 1 mg tablet 1 mg PO BID cetirizine 10 mg tablet 10 mg PO DAILY divalproex 500 mg tablet,delayed release (DR/EC) 500 mg PO Q12H fenofibrate 54 mg tablet 54 mg PO DAILY fluticasone propionate 50 mcg/actuation spray,suspension 2 spray INTRANASAL DAILY gabapentin 600 mg tablet 600 mg PO Q8H metformin 500 mg tablet extended release 24 hr 500 mg PO BID metoprolol succinate 50 mg tablet extended release 24 hr 75 mg PO DAILY montelukast 10 mg tablet 10 mg PO .hs omeprazole 20 mg capsule,delayed release(DR/EC) 20 mg PO BID paliperidone 3 mg tablet extended release 24 hr 3 mg PO DAILY quetiapine 25 mg tablet 50 mg PO .hs quetiapine 300 mg tablet 300 mg PO .hs sertraline 100 mg tablet 100 mg PO DAILY simvastatin 20 mg tablet 20 mg PO .hs Print Language: Sami Instructions: Acute Headache (ED) Referrals: Reina Underwood ND [Primary Care Provider] - 1 week
[2024-10-06] MEDS: 0.9 % SODIUM CHLORIDE 1,000 ML 999 ML IV (20:08)
[2024-10-06] MEDS: METOCLOPRAMIDE HCL 10 MG/2 ML VIAL IVP (20:10)
[2024-10-06] MEDS: ORPHENADRINE 60 MG/ 2 ML VIAL IV (20:10)
[2024-10-06] MEDS: DIPHENHYDRAMINE HCL 50 MG/ML VIAL 25 MG IVP (20:10)
[2024-10-06] MEDS: KETOROLAC TROMETHAMINE 30 MG/ML VIAL IVP (20:10)
[2024-10-06] MEDS: MAGNESIUM SULFATE IN WATER 2 GM/50 ML PREMIX IV (21:28)
[2024-10-06] MEDS: DEXAMETHASONE SOD PHOS 10 MG/ML VIAL IV (21:29)
[2024-10-06] MEDS: BUTALB/ACETAMINOPHEN/CAFFEINE 50-325-40MG TABLET 1 TAB PO (21:29)
[2024-10-06] MEDS: HYDROMORPHONE HCL 1 MG/ML CARTRIDGE IV (22:42)
[2024-10-06 23:11] VITALS: PULSE 94; O2SAT 96
== END 2024-10-06 23:13 | disposition home or self-care (01) ==
PROVIDERS: Emergency Provider Emergency Medicine; PCP Student in an Organized Health Care Education/Training Program
DX: R51.9 Headache, unspecified (principal); G40.909 Epilepsy, unspecified, not intractable, without status epilepticus; E11.9 Type 2 diabetes mellitus without complications; Z79.4 Long term (current) use of insulin
CPT/HCPCS: 96365; 96375; 99284; J1100; J1171; J1200; J1885; J2360; J2765; J3475

== ENCOUNTER 2024-10-23 09:02 | Outpatient (OUT) | payer MEDICARE, MEDICAID, SELFPAY ==
[2024-10-23 09:06] LABS: Hemoglobin 15.1 g/dL (14.0-18.0)
== END 2024-10-23 23:59 | disposition home or self-care (01) ==
LOC: LAB 11-03 12:44
PROVIDERS: PCP Student in an Organized Health Care Education/Training Program; Visit Provider Internal Medicine Cardiovascular Disease
DX: R06.09 Other forms of dyspnea (principal); R06.02 Shortness of breath
CPT/HCPCS: 36415; 85018

== ENCOUNTER 2024-11-16 07:34 | Outpatient (OUT) | payer MEDICARE, MEDICAID, SELFPAY ==
--- NOTE | 2024-11-16 08:00 | CA_ITS ---
Patient Name: LAXMI TORRES MR#: [id number] : 1975 Exam Date: 11/16/2024 Ordering Doctor: DR. RUBEN CURRIE M.D. ECHOCARDIOGRAM REPORT PROCEDURE: CA ECHO DOPPLER COMPLETE INDICATIONS: Dyspnea on exertion COMPARISON: None. DESCRIPTION: COMPLETE ECHOCARDIOGRAM Real-time transthoracic echocardiography with 2D, M-mode, spectral and color flow Doppler performed. QUALITY: Technical quality was good. LEFT VENTRICLE: Normal chamber size. Proximal septal hypertrophy (sigmoid septum). Normal systolic function. LV EF: Normal left ventricular ejection fraction, (55%). DIASTOLIC: Diastolic function is indeterminate. ATRIAL SEPTUM: LEFT ATRIUM: Normal chamber size. RIGHT ATRIUM: Normal chamber size. RIGHT VENTRICLE: Mild chamber dilatation. Normal right ventricular systolic function. TRICUSPID VALVE: Normal mobility and thickness. No stenosis with no regurgitation. Unable to assess right-sided pressures due to lack of measurable tricuspid regurgitation. MITRAL VALVE: Normal mobility and thickness. No evidence of mitral valve stenosis. There is no mitral annular calcification. No mitral regurgitation. AORTIC VALVE: Normal trileaflet appearance. No visible sclerosis. Normal leaflet mobility. No evidence of aortic valve stenosis. No aortic regurgitation. AORTIC ROOT: Normal diameter and appearance, measuring 3.6 cm. Ascending aorta is normal in size, measuring 2.9 cm. PULMONIC VALVE: Normal thickness and mobility. No stenosis. Trivial regurgitation. PERICARDIUM: No evidence of pericardial effusion. IVC: Not well visualized. PLEURA: CONCLUSION: 1. Normal left ventricular size and systolic function. LVEF is estimated at 55%. 2. Mildly dilated right ventricle with normal systolic function. 3. No significant valvular dysfunction. 4. Unable to assess right-sided pressures due to lack of measurable tricuspid regurgitation. Adult Echocardiography Procedure Report Left Ventricle LVEDD (3.7 - 5.6 cm): 4.48 cm LVESD (2.2 - 4.0 cm): 2.71 cm LVIVS thickness (0.6 - 1.2 cm): 1.14 cm LVPW thickness (0.5 - 1.0 cm): 1.04 cm e': 0.09 m/s E - e': 7.10 LVOT Max Gradient: 3.63 mm[Hg] LVOT Area (cm2): 0.95 m/s Peak Velocity (LVOT): 0.95 m/s Mean Velocity (LVOT): 0.60 m/s LVOT Diameter 2.37 cm Left Atrium LA Volume Index (2D A2C): 18.51 ml/m2 Left Atrium Systolic Dimension: 3.59 cm Mitral Valve MV E to A Ratio: 0.88 Mitral Valve A-Wave Peak Velocity: 0.71 m/s Mitral Valve E-Wave Peak Velocity: 0.63 m/s Right Ventricle Aorta AO Root Diam: 3.59 cm Ascending Ao Diam: 2.93 cm Aortic Valve AoV Area (Peak Eliot): 3.74 cm2, 3.74 cm2 AoV Area (VTI): 3.83 cm2, 3.83 cm2 Peak Velocity(Antegrade Flow): 1.12 m/s Peak Gradient(Antegrade Flow): 5.04 mm[Hg] Mean Velocity(Antegrade Flow): 0.80 m/s Mean Gradient(Antegrade Flow): 2.93 mm[Hg] Velocity Time Integral: 21.55 cm Tricuspid Valve Pulmonic Valve Mean Gradient: 1.45 mm[Hg] Mean Velocity: 0.56 m/s Peak Velocity: 0.83 m/s, 0.80 m/s Peak Gradient: 2.58 mm[Hg], 2.77 mm[Hg] Right Atrium Right Atrium Systolic Pressure: 43.80 ml, 43.80 ml Dictated by: Mt Sheikh M.D. on 11/16/2024 at 15:41 Approved by: Mt Sheikh M.D. on 11/16/2024 at 15:44
[2024-11-16] MEDS: ALBUTEROL SULFATE 2.5 MG/3 ML VIAL NEB IH (08:48)
--- NOTE | 2024-11-16 09:00 | RT_ITS ---
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 Findings were considered accurate and reproducible. Both pre- and post-bronchodilator values utilized for spirometry. Spirometry (based on pre-bronchodilator values): -FEV1/FVC: Normal @ 75% -FEV1: Normal @ 87% -FVC: Normal @ 91% -BRH91-98%: Reduced @ 74% -There is no significant bronchodilator response. Lung volumes by plethysmography: -RV: Increased @ 122% -TLC: Normal @ 103% Diffusion capacity: -DLCO: Normal @ 88% when corrected for Hb 15.1g/dL Flow-volume loop: -'Scooping/coving' of the expiratory limb Impressions: -Technically normal spirometry, but a reduced [id number]% may suggest a mild obstructive process which correlates with scooping in the expiratory limb of the flow-volume loop. Increased RV may suggest air trapping. Normal diffusion capacity. Clinical correlation required. Electronically Signed On 11-16-2024 16:08:00 EDT by Fercho Bradley
== END 2024-11-16 07:35 | disposition home or self-care (01) ==
LOC: CARD 07:35
PROVIDERS: PCP Student in an Organized Health Care Education/Training Program; Visit Provider Internal Medicine Cardiovascular Disease
DX: R06.09 Other forms of dyspnea (principal); R06.02 Shortness of breath
CPT/HCPCS: 93306; 94060; 94726; 94729

== ENCOUNTER 2025-01-01 08:35 | Outpatient (OUT) | payer MEDICARE, MEDICAID, SELFPAY ==
[2025-01-01 10:56] LABS: Alanine Aminotransferase 46 U/L (16-63); Aspartate Amino Transferase 31 U/L (15-37); Chol HDL Ratio 5.7; Cholesterol 176 mg/dL (<=200); HDL Cholesterol 31 mg/dL (40-60); Triglycerides 299 mg/dL (<=150); VLDL CHOLESTEROL 59.8 mg/dL
== END 2025-01-01 08:36 | disposition home or self-care (01) ==
LOC: LAB 08:37
PROVIDERS: PCP Student in an Organized Health Care Education/Training Program; Visit Provider Internal Medicine Cardiovascular Disease
DX: E78.2 Mixed hyperlipidemia (principal)
CPT/HCPCS: 36415; 80061; 84450; 84460

== ENCOUNTER 2025-06-07 17:37 | Emergency (ER) | payer MEDICARE, MEDICAID, SELFPAY ==
[2025-06-07 17:43] VITALS: BP 112/82; PULSE 90; TEMP 36.6; O2SAT 100; BMI 37.4
--- NOTE | 2025-06-07 18:35 | ED_ITS ---
HPI HPI - General Adult General Chief complaint: Recheck/Abnormal Lab/Rx Stated complaint: PAIN FROM RECENT INJURY TO R EAR/JAW Time Seen by Provider: 06/07/25 18:35 Source: patient Mode of arrival: walk-in Limitations: no limitations History of Present Illness HPI narrative: Patient is a 49-year-old male that presents with complaints of right jaw pain and swelling that started today after he states that he had an incident at home and hit his head into a door yesterday. He does have superficial lacerations to the top of his head and states he was seen at [facility] yesterday and his CT scan was okay and he was discharged. He did not have this jaw pain or swelling at that time and is unsure if he hit that side of his face during this incident. He cannot open his mouth but states that it hurts his jaw to do so. He denies any pain in his mouth or around his teeth. He denies any fever, night sweats, or chills. Related Data Home Medications ?Medication ?Instructions ?Recorded ?Confirmed aspirin 81 mg tablet,delayed 81 mg PO DAILY 02/11/24 0 02/11/24 release benztropine 1 mg tablet 1 mg PO BID 02/11/24 4 cetirizine 10 mg tablet 10 mg PO DAILY 02/11/2401/20 divalproex 500 mg tablet,delayed 500 mg PO Q12H 02/11/24 release fenofibrate 54 mg tablet 54 mg PO DAILY 02/11/2401/20 fluticasone propionate 50 2 spray intranasal DAILY 02/11/24 mcg/actuation nasal spray,suspension gabapentin 600 mg tablet 600 mg PO Q8H 02/11/2402/10 metformin 500 mg tablet,extended 500 mg PO BID 4 02/11/24 release 24 hr metoprolol succinate 50 mg 75 mg PO DAILY 02/11/24 tablet,extended release 24 hr montelukast 10 mg tablet 10 mg PO .hs 02/11/24 omeprazole 20 mg capsule,delayed 20 mg PO BID 02/11/24 02/11/24 release paliperidone 3 mg tablet,extended 3 mg PO DAILY 02/11/24 release 24 hr quetiapine 25 mg tablet 50 mg PO .hs 02/11/24 quetiapine 300 mg tablet 300 mg PO .hs 02/11/2402/10 sertraline 100 mg tablet 100 mg PO DAILY 02/11/24 simvastatin 20 mg tablet 20 mg PO .hs 02/11/24 Previous Rx's ?Medication ?Instructions ?Recorded methylprednisolone 4 mg tablets in 4 mg PO DAILY #21 e a 08/22/24 a dose pack (Medrol (Oli)) Allergies Allergy/AdvReac Type Severity Reaction Status Date / Time Penicillins Allergy Mild Rash Verified 10/06/24 19:43 Sulfa (Sulfonamide Allergy Mild Rash Verified 10/06/24 19:43 Antibiotics) Opioid HPI Opioid Management Most Recent Opioid Data: Last Pain Scale 8 09/26/24, 00:02 Review of Systems ROS Status of ROS 10 or more systems reviewed and unremark able except as noted in history and below PFSH PFS Social History Little interest or pleasure in doing things: not at all Feeling down, depressed, or hopeless: not at all Exam Narrative Exam Narrative: General: No distress, age-appropriate Skin: Warm, dry, no pallor. No rash. Head: Normocephalic, atraumatic. Neck: Supple, non-tender. Eye: Pupils are equal, round and EOMI. No scleral icterus. Ears, Nose, Mouth, and Throat: TMs occluded with cerumen bilaterally. No nasal mucosal hypertrophy. Oral mucosa is moist, no posterior oropharynx erythema, uvula is mid-line. No trismus. No malocclusion. Mild swelling right jaw, tenderness with palpation. Cardiovascular: Regular Rate and Rhythm without murmur, gallop or rub. Respiratory: No accessory muscle use or respiratory distress. Musculoskeletal: Full ROM of all extremities, no calf or popliteal tenderness. Neurological: A&O x4. No cranial nerve dysfunction observed. No truncal ataxia. Moves all extremities. Sensation intact. Psychiatric: Cooperative and interactive. Normal mood and affect. Constitutional Vital Signs, click to edit/add: Last Vital Signs Temp 97.9 F 06/07/25 17:43 Pulse 90 06/07/25 17:43 Resp 18 06/07/25 17:43 BP 112/82 06/07/25 17:43 Pulse Ox 100 06/07/25 17:43 O2 Del Method Room Air 06/07/25 17:43 Documenting provider has reviewed patient's vital signs: yes Course Vital Signs Vital signs: Vital Signs Temperature 97.9 F 06/07/25 17:43 Pulse Rate 90 06/07/25 17:43 Respiratory Rate 18 06/07/25 17:43 Blood Pressure 112/82 06/07/25 17:43 Pulse Oximetry 100 06/07/25 17:43 Oxygen Delivery Method Room Air 06/07/25 17:43 Temperature 97.9 F 06/07/25 17:43 Pulse Rate 90 06/07/25 17:43 Respiratory Rate 18 06/07/25 17:43 Blood Pressure 112/82 06/07/25 17:43 Pulse Oximetry 100 06/07/25 17:43 Oxygen Delivery Method Room Air 06/07/25 17:43 Medical Decision Making MDM Narrative Medical decision making narrative: This is a 49-year-old male that presented to the ED with complaints of right jaw pain and swelling, pain with eating and opening jaw. He was evaluated in [facility] ER yesterday after he states he had an incident with someone he lives with and was angry and hit his head against a door. He is unsure if he hit his face too but states that his right jaw did not start hurting until today. He denies any fever, night sweats, or chills. He did note tooth pain for abscesses he has noted in his mouth. He denies any LOC during the incident. On arrival patient is nontoxic-appearing, in no distress, there are superficial lacerations to the top of his head, do not require repair, mild swelling around the angle of the mandible with tenderness. No erythema or fluctuance with palpation. No trismus. No malocclusion. Vital signs are stable. Temperature afebrile 97.9 ?F. ER documentation from [facility] visit yesterday obtained with patient's written consent and reviewed and CT brain was ordered and negative. CT facial bones ordered and per radiological read negative for fracture. Given the negative imaging, the most likely etiology is soft tissue contusion or trauma-induced muscle spasm. There is no evidence of infection at this time. The patient?s airway is intact, and he is hemodynamically stable. He was instructed to follow up with his primary care physician or oral-maxillofacial surgery if symptoms persist or worsen, and to return to the ED for rapidly increasing swelling, fever, inability to open mouth, or airway concerns. I discussed results with patient and caregiver at bedside. I recommend, NSAIDS, ice, and soft diet until symptoms start to improve. He denies need for pain medication here. Patient discharged in stable condition, pain controlled, with plan for follow-up with his primary care provider. Differential Diagnosis Differential Diagnosis: Mandibular fracture, TMJ dislocation, soft tissue contusion Imaging Data CT facial bones w/o contrast: Attestation: I have reviewed the pertinent imaging results. Radiologist's impression: ITS Impressions Facial Bones CT 06/07/25 18:59 IMPRESSION: No acute displaced fracture Impression dictated by: Bruno Tamayo M.D. 06/07/2025 7:52 PM Dictation [facility] Electronically authenticated by: [id number] Y Date: 06/07/2025 19:52 Discharge Plan Discharge Chief Complaint: Recheck/Abnormal Lab/Rx Clinical Impression: Contusion of jaw Patient Disposition: Home, Self-Care Time of Disposition Decision: 20:18 Condition: Good Mode of Transportation: Private Vehicle Prescriptions / Home Meds: No Action methylprednisolone [Medrol (Oli)] 4 mg tablets,dose pack 4 mg PO DAILY Qty: 21 0RF Rx Instructions: take as directed aspirin 81 mg tablet,delayed release (DR/EC) 81 mg PO DAILY benztropine 1 mg tablet 1 mg PO BID cetirizine 10 mg tablet 10 mg PO DAILY divalproex 500 mg tablet,delayed release (DR/EC) 500 mg PO Q12H fenofibrate 54 mg tablet 54 mg PO DAILY fluticasone propionate 50 mcg/actuation spray,suspension 2 spray INTRANASAL DAILY gabapentin 600 mg tablet 600 mg PO Q8H metformin 500 mg tablet extended release 24 hr 500 mg PO BID metoprolol succinate 50 mg tablet extended release 24 hr 75 mg PO DAILY montelukast 10 mg tablet 10 mg PO .hs omeprazole 20 mg capsule,delayed release(DR/EC) 20 mg PO BID paliperidone 3 mg tablet extended release 24 hr 3 mg PO DAILY quetiapine 25 mg tablet 50 mg PO .hs quetiapine 300 mg tablet 300 mg PO .hs sertraline 100 mg tablet 100 mg PO DAILY simvastatin 20 mg tablet 20 mg PO .hs Print Language: Belgian Instructions: Facial Contusion (ED) Additional Instructions: 1. Pain & Swelling Control * Take ibuprofen (Advil/Motrin) as directed every 6 hours if you can tolerate NSAIDs. * You may also take acetaminophen (Tylenol) as needed for pain. * Apply ice packs to the right side of your jaw for 10?15 minutes at a time, every 2?3 hours for the next 48?72 hours. 2. Diet * Follow a soft diet for the next 3?5 days. * Examples: yogurt, soups, eggs, smoothies, mashed potatoes, oatmeal * Avoid hard, chewy, or crunchy foods (steak, nuts, gum, tough bread). 3. Jaw Rest * Limit wide mouth opening. * Avoid chewing gum or clenching your jaw. * After 48?72 hours, you may gently begin easy jaw stretching if comfortable. What to Expect * Swelling and pain may increase slightly over the first 24 hours, then gradually improve. * Limited mouth opening should improve over several days. * Bruising may appear and is normal. Return to the ER Immediately If You Experience: * Worsening jaw swelling * Fever, chills, or feeling very unwell * New difficulty swallowing, drooling, or trouble breathing * Increasing inability to open your mouth * Your teeth suddenly feel like they don't fit together normally * Numbness of your lower lip or chin * Severe, uncontrolled pain Follow-Up * Follow up with your primary care provider within 2?3 days. Referrals: Reina Underwood ND [Primary Care Provider] - 1 week Discharge Date/Time: 06/07/25 20:32
--- NOTE | 2025-06-07 18:59 | CT_ITS ---
The [address] [address] Patient Name: LAXMI TORRES MRN: [id number] date: 1975 Sex: M Assigned Patient Location: ED.MAIN Current Patient Location: ED.MAIN Accession/Order Number: [id number] Exam Date: 06/07/2025 19:12 Report Date: 06/07/2025 19:52 At the request of: MARK BARRERA Procedure: CT facial bones wo con CT Facial Bones without contrast TECHNIQUE: Axial imaging with 2-D reconstruction. The CT exam was performed using one or more the following dose reduction techniques: Automated exposure control, adjustment of the MA and/or Kv according to patient size, or use of the iterative reconstruction technique. HISTORY: Right jaw pain. Injury. COMPARISON: None FRACTURES: None BONY LESIONS: None ORBITS: Unremarkable SINUSES: The sinuses are well pneumatized. SOFT TISSUES: No focal soft tissue abnormality identified. ADDITIONAL FINDINGS: Dental disease CT/CT facial bones wo con IMPRESSION: No acute displaced fracture Impression dictated by: Bruno Tamayo M.D. 06/07/2025 7:52 PM Dictation Location: [place] [address] Electronically authenticated by: [id number] Y Date: 06/07/2025 19:52
--- OUTSIDE RECORDS SUMMARY | 2025-06-07 19:09 | XMS_ITS | CCD ---
Author Organization [facility] CliniSyvt Care Team Providers Care Financial Rep Name Role Phone Provider, None Unavailable Unavailable Carolyn Tipton Unavailable Unavailable Saeed Carolyn Unavailable Unavailable THUMMALAPALLY, RUSHEETH Admitting Unavaila ble THUMMALAPALLY, RUSHEETH Attending Unavaila ARCELIA Mauricio Referring Unavailable [facility] Primary Care Unavailable SELF, REFERRED Referring Unavailable [facility] Primary Care Unavailable TOFKATHERINE ROPER Admitting Unavailable TOFKATHERINE ROPER L Attending Unavailable SELF, REFERRED Referring Unavailable [facility] Primary Care Unavailable STEENHOFF, LAXMI Attending Unavailable STEENHOFF, LAXMI Admitting Unavailable SELF, REFERRED Referring Unavailable [facility] Primary Care Unavailable TITUS GARCIA Admitting Unavailable TITUS GARCIA Attending Unavailable SELF, REFERRED Referring Unavailable ROBLES, ARACELIS Primary Care Unavailable YORDAN CROWLEY Attending Unavailable STEENHOFF, LAXMI Admitting Unavailable [facility], ARACELIS Primary Care Unavailable [facility] Referring Unavailable Ovitt Enedina Admitting Unavailable OvittReggieEnedina Attending Unavailable [facility] Primary Care Unavailable GLORIA WASHINGTON Attending Unavailable [...] Unavailable Justin Underwood MD Primary Care Provider Justin Underwood MD Primary Care Provider [phone] Justin Underwood MD Primary Care Provider [phone] Kj MD, Muhamid M Primary Care Provider [phone] KJ, MUHAMID M Primary Care Unavailable KJ, MUHAMID M Primary Care Unavailable RUBEN CURRIE Attending Unavailable MARCO MUNROE Attending Unavailable LISSETT KELLER Attending Unavailable KJ, MUHAMID M Referring Unavailable KJ, MUHAMID M Primary Care Unavailable Kj Justin BAUTISTA Primary Care Provider [phone] VICKI SHAFFER Attending Unavailable CINDA STEVE Attending Unavailable KJ, MUHAMID [...] Unavailable KJ, MUHAMID M Primary Care Unavailable ELLE BUSTILLOS Attending Unavailable MYLA RM Attending Unavailable KJ, MUHAMID M Referring Unavailable KJ, MUHAMID M Primary Care Unavailable KJ, MUHAMID M Primary Care Unavailable DIONNE PAYNE Attending Unavailable KJ, MUHAMID M Primary Care Unavailable FELICIA MOREIRA Attending Unavailable MYLA RM Referring Unavailable KJ, MUHAMID M Primary Care Unavailable MYLA RM Referring Unavailable KJ, MUHAMID M Primary Care Unavailable VISH SANCHEZ Referring Unavailable KJ, MUHAMID M Primary Care Unavailable MYLA RM Referring Unavailable KJ, MUHAMID M Primary Care Unavailable MYLA RM Attending Unavailable KJ, MUHAMID M Referring Unavailable KJ, MUHAMID M Primary Care Unavailable NIENBERGCINDA M Attending Unavailable KJ, MUHAMID M Referring Unavailable KJ, MUHAMID M Primary Care Unavailable MYLA RM Referring Unavailable KJ, MUHAMID M Primary Care Unavailable KJ, MUHAMID M Primary Care Unavailable NIENBERG, CINDA M Attending Unavailable NIENBERG, CINDA M Referring Unavailable KJ, MUHAMID M Primary Care Unavailable RAND RECINOS Attending Unavailable KJ, MUHAMID M Referring Unavailable KJ, MUHAMID M Primary Care Unavailable RAND RECINOS Attending Unavailable KJ, MUHAMID M Referring Unavailable KJ, MUHAMID M Primary Care Unavailable KJ, MUHAMID M Attending Unavailable KJ, MUHAMID M Referring Unavailable KJ, MUHAMID M Primary Care Unavailable VISH SANCHEZ Attending Unavailable ELLE BUSTILLOS Referring Unavailable KJ, MUHAMID M Primary Care Unavailable VISH SANCHEZ Attending Unavailable KJ, MUHAMID M Referring Unavailable KJ, MUHAMID M Primary Care Unavailable RAND RECINOS Attending Unavailable KJ, MUHAMID M Referring Unavailable KJ, MUHAMID M Primary Care Unavailable VISH SANCHEZ Attending Unavailable KJ, MUHAMID M Referring Unavailable KJ, MUHAMID M Primary Care Unavailable Allergies Allergy ClassificationReported Allergen(s)Allergy TypeDate of OnsetReaction(s) Facility (20 sources)Penicillins; Translations: [penicillins]Propensity to adverse reactions to drug (disorder)[id number], [facility], [facility])Sulfonamides (Antibiotic); Translations: [sulfa drugs]Propensity to adverse reactions to drug (disorder)[facility] Repository (20 sources)Sulfonamides (Antibiotic); Translations: [Sulfa (Sulfonamide Antibiotics)]Propensity to adverse reactions (disorder)88-31-9419[facility] Repository (3 sources)Sulfonamides (Antibiotic)Drug Ipiesgi69-32-8601[facility] Medications Current Medications MedicationDrug Class(es)DatesSig (Normalized)Sig (Original)acetaminophen 500 mg oral tablet (20 sources)Start: 84-70-2240rscu 2 tablets by mouth every six hours as needed for painacetaminophen (TYLENOL EXTRA STRENGTH) 500 mg tablet Take 2 tablets (1,000 mg total) by mouth every6 (six) hours as needed for pain. 30 tablet 11/27/2024 ActiveStart: 11-06-2023 End: 55-32-9128zqkz 1 tablet by mouth every six hours as needed for pain and headacheacetaminophen (TYLENOL EXTRA STRENGTH) 500 mg tablet Take 1 tablet (500 mg total) by mouth every 6 (six) hours as needed for pain or headaches. 90 tablet 2 11/06/2023 [id number] 200 actuat albuterol 0.09 mg/actuat metered dose inhaler (20 sources)beta2-Adrenergic AgonistStart: 01-25-2024 End: 98-08-5860dqxl 2 puff(s) by inhalation every six hours as needed for wheezingalbuterol (PROVENTIL HFA;VENTOLIN HFA) 90 mcg/actuation inhaler Indications: Acute non-recurrent frontal sinusitis Inhale 2 puffs every 6 (six) hours as needed for wheezing. 18 g 10/14/2024 ActiveStart: 98-44-1501wbeqplydn (PROVENTIL,VENTOLIN) 2.5 mg /3 mL (0.083 %) nebulizer solution 10/08/2023 Active End: 78-75-9290rayd 2 puff(s) by inhalation every six hours as needed for wheezingalbuterol (PROVENTIL HFA;VENTOLIN HFA) 90 mcg/actuation inhaler Inhale 2 puffs every 6 (six) hours as needed for wheezing. 01/24/2024 Discontinued (Reorder)ALPRAZolam 0.5 mg oral tablet (20 sources)BenzodiazepineStart: 40-81-2717jzvr 1 tablet by mouth once for anxietyALPRAZolam (Xanax) 0.5 MG tablet Take 0.5 mg by mouth 1 (one) time if needed for anxiety 08/23/2023ctiveaspirin 81 mg delayed release oral tablet (20 sources)Platelet Aggregation Inhibitor, Nonsteroidal Anti-inflammatory Drug Start: 08-23-2023 End: 91-28-9787hzre 1 tablet by mouth every week in the morningaspirin 81 mg Take 1 tablet (81 mg total) by mouth in the morning. Hold 1 week prior to surgery scheduled on 03/11/2023 per cardiology. 90 tablet 2 11/24/2024 Activetake 1 tablet by mouth once dailyaspirin 81 MG EC tablet Take 81 mg by mouth Daily Activeazithromycin 250 mg oral tablet (2 sources)Macrolide AntimicrobialStart: 10-18-2024 End: 85-04-8040mozqkiwpqtag (ZITHROMAX) 250 mg tablet Indications: Acute bronchitis, unspecified organism , Acute non-recurrent frontal sinusitis Take 2 tablets the first day, then 1 tablet daily for 4 days. 6 tablet 10/18/2024 10/23/2024 Activebenztropine mesylate 1 mg oral tablet (20 sources)Anticholinergic, AntihistamineStart: 07-29-2023 End: 96-57-2155aeoj 1 tablet by mouth in the morning, then take 1 tablet by mouth at bedtimebenztropine (COGENTIN) 1 mg tablet Take 1 tablet (1 mg total) by mouth in the morning and 1 tablet (1 mg total) before bedtime. 180 tablet 3 08/15/2023 ActiveStart: 04-19-2023 End: 83-94-8521nutk 1 tablet by mouth in the morning, then take 1 tablet by mouth at bedtimebenztropine (COGENTIN) 1 mg tablet Take 1 tablet (1 mg total) by mouth in the morning and 1 tablet (1 mg total) before bedtime. 180 tablet 3 04/19/2023 07/27/2023 Discontinued (Reorder)bismuth subsalicylate 17.5 mg/ml oral suspension (20 sources)BismuthStart: 04-19-2023 End: 87-07-1084vjbi 15 mL by mouth every six hours as needed for gastroesophageal reflux diseasebismuth subsalicylate (PEPTO BISMOL) 262 mg/15 mL suspension Take 15 mL by mouth every 6 (six) hours as needed for indigestion or heartburn. 360 mL 2 05/11/2024 Activecalcium carbonate 500 mg chewable tablet (20 sources)Start: 04-19-2023 End: 79-13-4464ltbvily carbonate (TUMS) 200 mg elemental (500 mg) chewable tablet Chew 1 tablet (200 mg total) andswallow in the morning. 90 tablet 3 09/07/2024 ActiveCalcium Carbonate Antacid (CALCIUM CARBONATE PO) (3 sources)Calcium Carbonate Antacid (CALCIUM CARBONATE PO) Take by mouth Active Calcium Carbonate Antacid (CALCIUM CARBONATE PO) Take by mouth 0 Active cetirizine hydrochloride 10 mg oral tablet (20 sources)Histamine-1 Receptor AntagonistStart: 07-29-2023 End: 36-62-0360sqon 1 tablet by mouth in the morningcetirizine (ZyrTEC) 10 mg tablet Take 1 tablet (10 mg total) by mouth in the morning. 90 tablet 3 ActiveStart: 04-19-2023 End: 89-55-9303zguc 1 tablet by mouth in the morningcetirizine (ZyrTEC) 10 mg tablet Take 1 tablet (10 mg total) by mouth in the morning. 90 tablet 3 07/27/2023 Discontinued (Reorder)cocoa butter 0.884 mg/mg / phenylephrine hydrochloride 0.0025 mg/mg rectal suppository (20 sources)alpha-1 Adrenergic AgonistStart: 65-97-8595lqvgyxftfivkc HCl-cocoa butter (PREPARATION H,PE,CB,) 0.25-88.44 % suppository Insert 1 suppositoryinto the rectum every 6 (six) hours as needed (rectal pain or hemorrhoid bleeding). 24 suppository 06/30/2024 Wwjpgd82 hr dextromethorphan hydrobromide 30 mg / guaiFENesin 600 mg extended release oral tablet (20 sources)Uncompetitive O-vxxeqk-A-aspartate Receptor Antagonist, Sigma-1 AgonistStart: 54-75-3056rjvu 1 tablet by mouth every hour as needed dextromethorphan-guaiFENesin (MUCINEX DM) 30-600 mg tablet extended release 12 hr Indications: Acute bronchitis, unspecified organism Take 1 tablet by mouth every 12 (twelve) hours as needed (cough).60 each 5 05/21/2025 ActiveStart: 10-14-2024 End: 12-46-6820yycc 1 tablet by mouth every hour as neededdextromethorphan- guaiFENesin (MUCINEX DM) 30-600 mg tablet extended release 12 hr Indications: Acute bronchitis, unspecified organism Take 1 tablet by mouth every 12 (twelve) hours as needed (cough).28 each 10/14/2024 05/19/2025 Discontinued (Reorder) diazePAM 5 mg oral tablet (6 sources)BenzodiazepineStart: 42-74-6769shvx 1 tablet by mouth in the morning diazePAM (VALIUM) 5 mg tablet Indications: Cervical post-laminectomy syndrome Take 1 tablet (5 mg total) by mouth in the morning. 1 tablet 04/06/2025 Active docusate sodium 100 mg oral capsule (20 sources)Start: 83-49-8265jjyv 1 capsule by mouth once daily as needed for constipationdocusate sodium (COLACE) 100 mg capsule Take 1 capsule (100 mg total) by mouth daily as needed for constipation. 30 capsule 5 05/21/2025 Active End: 08-05-7276zgxx 1 capsule by mouth once daily as needed for constipation docusate sodium (COLACE) 100 mg capsule Take 1 capsule (100 mg total) by mouth daily as needed for constipation. 05/19/2025 Discontinued (Reorder)doxycycline hyclate 100 mg oral capsule (2 sources)Tetracycline-class DrugStart: 11-27-2024 End: 04-24-3415rdqp 1 capsule by mouth in the morning, then take 1 capsule by mouth at bedtimedoxycycline (VIBRAMYCIN) 100 mg capsule Take 1 capsule (100 mg total) by mouth in the morning and 1capsule (100 mg total) before bedtime. Do all this for 7 days. 14 capsule 11/27/2024 12/04/2024 ActiveStart: 09-03-2024 End: 27-74-5507gdpo 1 capsule by mouth in the morningdoxycycline (VIBRAMYCIN) 100 mg capsule Take 1 capsule (100 mg total) by mouth in the morning. 09/03/2024 09/13/2024 Expiredfenofibrate 54 mg oral tablet (20 sources)Peroxisome Proliferator Receptor alpha AgonistStart: 83-98-7780twde 1 tablet by mouth in the morningfenofibrate (LOFIBRA) 54 mg tablet Indications: Hypertriglyceridemia Take 1 tablet (54 mg total) bymouth in the morning. 30 tablet 5 05/21/2025 ActiveStart: 12-25-2023 End: 90-03-8982zyzm 1 tablet by mouth in the morningfenofibrate (LOFIBRA) 54 mg tablet Indications: Hypertriglyceridemia Take 1 tablet (54 mg total) bymouth in the morning. 30 tablet 5 10/28/2024 05/19/2025 Discontinued (Reorder)fluconazole 100 mg oral tablet (4 sources)Azole AntifungalStart: 01-31-2024 End: 34-95-3390vcuzcjxiucg (Diflucan) 100 MG tablet Indications: Pityrosporum folliculitis Take 1 tablet once a day x 14 days. Hold the Simvastain while taking Diflucan 14 tablet 1 02/08/2025 Activefluticasone propionate 0.05 mg/actuat metered dose nasal spray (20 sources)CorticosteroidStart: 06-26-2023 End: 07-40-1201itdc 2 spray(s) nasal route in the morningfluticasone propionate (FLONASE) 50 mcg/actuation nasal spray Indications: allergic conjunctivitis , allergic rhinitis Administer 2 sprays into each nostril in the morning. Indications: allergic conjunctivitis, inflammation of the nose due to an allergy. 15.8 mL 2 02/12/2025 Activefluticasone (Flonase) 50 MCG/ACT nasal spray 1 (one) time each day at the same time Active1.5 ml fremanezumab-vfrm 150 mg/ml auto-injector (2 sources)Start: 88-17-6552yilspkduohlr-vfrm (AJOVY AUTOINJECTOR) 225 mg/1.5 mL Indications: Migraine without aura and with status migrainosus, not intractable Inject 1.5 mL (225 mg total) under the skin every 28 days. 1.5 mL 5 05/12/2025 Activegabapentin 600 mg oral tablet (20 sources)Anti-epileptic AgentStart: 05-82-9976touu 1 tablet by mouth in the morning, then take 1 tablet by mouth at bedtimegabapentin (NEURONTIN) 600 mg tablet Indications: Disc displacement, lumbar Take 1 tablet (600 mg total) by mouth in the morning and 1 tablet (600 mg total) before bedtime. 60 tablet 2 05/21/2025 ActiveStart: 12-19-2023 End: 04-14-1803dbok 1 tablet by mouth in the morning, then take 1 tablet by mouth at bedtimegabapentin (NEURONTIN) 600 mg tablet Indications: Disc displacement, lumbar Take 1 tablet (600 mg total) by mouth in the morning and 1 tablet (600 mg total) before bedtime. 60 tablet 02/16/2025 05/19/2025 Discontinued (Reorder)Start: 07-29-2023 End: 13-87-9752jyea 1 tablet by mouth three times dailygabapentin (NEURONTIN) 600 mg tablet Indications: Disc displacement, lumbar Take 1 tablet (600 mg to tyson) by mouth 3 (three) times a day. 90 tablet 10/24/2023 ActiveStart: 06-26-2023 End: 47-75-6653cuje 1 tablet by mouth three times dailygabapentin (NEURONTIN) 600 mg tablet Indications: Disc displacement, lumbar Take 1 tablet (600 mg to tyson) by mouth 3 (three) times a day. 90 tablet 0 06/26/2023 07/27/2023 Discontinued (Reorder)ibuprofen 800 mg oral tablet (20 sources)Nonsteroidal Anti-inflammatory DrugStart: 37-24-6149jskk 1 tablet by mouth three times dailyibuprofen (MOTRIN) 800 mg tablet Take 1 tablet (800 mg total) by mouth 3 (three) times a day. 21 tablet 11/27/2024 ActiveStart: 10-02-2024 End: 58-64-2084pcbx 1 tablet by mouth every eight hours as needed for headache ibuprofen (MOTRIN) 600 mg tablet Indications: Trapezius muscle strain, left, initial encounter Take1 tablet (600 mg total) by mouth every 8 (eight) hours as needed for headaches for up to 10 days. 30 tablet 10/02/2024 10/12/2024 Active ketoconazole 20 mg/ml medicated shampoo (20 sources)Azole AntifungalStart: 55-09-0678zlnzfnjojgop (NIZOral) 2 % shampoo Indications: Pityrosporum folliculitis Lather on body, leave on 5 min before rinsing 120 mL 11 02/08/2025 ActiveStart: 02-03-2024 End: 62-91-6686cyogkudttbga (NIZOral) 2 % shampoo Indications: Pityrosporum folliculitis Lather on body, leave on 5 min before rinsing Do not start before February 03, 2024. 120 mL 11 02/03/2024 02/08/2025 Discontinuedketoconazole (NIZORAL) 2 % shampoo Apply 1 Application topically 2 (two) times a week. Apply to damp skin, lather, leave on 5 minutes, and rinse ActivelevoFLOXacin 500 mg oral tablet (3 sources)Quinolone AntimicrobialStart: 08-07-2024 End: 56-40-9774jzjr 1 tablet by mouth in the morning, then take 1 tablet by mouth at bedtimelevoFLOXacin (LEVAQUIN) 500 mg tablet Take 1 tablet (500 mg total) by mouth in the morning and 1 tablet (500 mg total) before bedtime. Do all this for 5 days. 10 tablet 08/07/2024 08/12/2024 ActiveStart: 04-10-2024 End: 96-39-3482xiyg 1 tablet by mouth in the morning, then take 1 tablet by mouth at bedtimelevoFLOXacin (LEVAQUIN) 500 mg tablet Indications: Prophylactic antibiotic Take 1 tablet (500 mg total) by mouth in the morning and 1 tablet (500 mg total) before bedtime. Do all this for 5 days. 10 tablet 04/10/2024 04/15/2024 Activelidocaine 0.04 mg/mg medicated patch (14 sources)Antiarrhythmic, Amide Local AnestheticStart: 02-46-1665rhxaf 1 dose transdermal route three times dailylidocaine (SALONPAS) 4 % Place 1 patch on the skin 3 (three) times a day. 90 patch 04/15/2025 ActiveStart: 21-29-5960byjeb 1 dose transdermal route once daily as needed for pain, then apply 1 dose transdermal route every twelve hours as needed for painlidocaine (LIDODERM) 5 % Place 1 patch on the skin daily. Remove & Discard patch within 12 hours or as needed for pain on the right hip. No more than one patch at time 30 patch 03/24/2025 Active3 ml liraglutide 6 mg/ml pen injector (20 sources)GLP-1 Receptor AgonistStart: 91-60-7436Lcfjtid 18 MG/3ML injection 08/15/2023 ActiveStart: 07-29-2023 End: 40-49-8516ymrhzxhznfv (VICTOZA 3-NITESH) 0.6 mg/0.1 mL (18 mg/3 mL) pen injector Indications: Type 2 diabetes mellitus without complication, without long-term current use of insulin (CMS-HCC) Inject 0.3 mL (1.8 mg total) under the skin in the morning. 9 mL 3 12/28/2024 ActiveStart: 06-26-2023 End: 77-78-0310ypiaqriixbr (VICTOZA 3-NITESH) 0.6 mg/0.1 mL (18 mg/3 mL) pen injector Indications: Type 2 diabetes mellitus without complication, without long-term current use of insulin (CMS-HCC) Inject 0.3 mL (1.8 mg total) under the skin in the morning. 9 mL 3 06/26/2023 07/27/2023 Discontinued (Reorder) LORazepam 1 mg oral tablet (18 sources)BenzodiazepineStart: 59-34-7237WBIiggfzh (ATIVAN) 1 mg tablet Indications: Anxiety Take 1 tablet 45-60 minutes prior to the MRI. May repeat the dose 1 time if needed. Must have someone drive you to and from the MRI. 2 tablet 02/09/2025 Activemeclizine hydrochloride 25 mg chewable tablet (20 sources)Antiemeticmeclizine (ANTIVERT) 25 mg tablet Chew 1 tablet (25 mg total) and swallow as needed in the morning and 1 tablet (25 mg total) as needed at noon and 1 tablet (25 mg total) as needed in the evening fordizziness. Active Melatonin (20 sources)melatonin 1 mg tablet,chewable Chew and swallow as needed. Rjesaf22 hr metFORMIN hydrochloride 500 mg extended release oral tablet (20 sources)BiguanideStart: 10-24-2023 End: 29-72-3071czcm 1 tablet by mouth every twenty-four hours in the morning, then take 1 tablet by mouth at bedtimemetFORMIN XR (GLUCOPHAGE XR) 500 mg 24 hr tablet Take 1 tablet (500 mg total) by mouth in the morning and 1 tablet (500 mg total) before bedtime. 180 tablet 3 09/28/2024 Activemethocarbamol 500 mg oral tablet (20 sources)Muscle RelaxantStart: 07-29-2023 End: 38-72-0786bjhnzurshudiM (ROBAXIN) 500 mg tablet Take 1 tablet (500 mg total) by mouth as needed for muscle spasms. Unsure on dose 90 tablet 2 08/15/2023 ActiveStart: 04-19-2023 End: 57-62-3297buqiamhzjvuuY (ROBAXIN) 500 mg tablet Take 1 tablet (500 mg total) by mouth as needed for muscle spasms. Unsure on dose 90 tablet 2 04/19/2023 07/27/2023 Discontinued (Reorder)metoprolol tartrate 25 mg oral tablet (20 sources)beta-Adrenergic BlockerStart: 52-30-2900ivomfronwy tartrate (Lopressor) 25 MG tablet 25 mg 06/05/2023 Activetake 1 tablet by mouth every twenty-four hours in the morningmetoprolol succinate XL (TOPROL XL) 100 mg 24 hr tablet Take 1 tablet (100 mg total) by mouth in the morning. [employer] Consult[employer] in [place]. Activetake 1 tablet by mouth once dailymetoprolol succinate XL (Toprol-XL) 50 MG 24 hr tablet Take 100 mg by mouth Daily Activetake 1.5 tablets by mouth every twenty-four hours in the morningmetoprolol succinate XL (TOPROL XL) 50 mg 24 hr tablet Take 1.5 tablets (75 mg total) by mouth in the morning. Activetake 1 tablet by mouth every twenty-four hours in the morningmetoprolol succinate XL (TOPROL XL) 50 mg 24 hr tablet Take 1 tablet (50 mg total) by mouth in the morning. Activemontelukast 10 mg oral tablet (20 sources)Leukotriene Receptor AntagonistStart: 53-05-4640dpzu 1 tablet by mouth once dailymontelukast (SINGULAIR) 10 mg tablet Take 1 tablet (10 mg total) by mouth nightly. 30 tablet 5 05/21/2025 ActiveStart: 07-29-2023 End: 64-00-1574rmyz 1 tablet by mouth once dailymontelukast (SINGULAIR) 10 mg tablet Take 1 tablet (10 mg total) by mouth nightly. 90 tablet 01/27/2025 05/19/2025 Discontinued (Reorder)Start: 04-19-2023 End: 20-52-0101ktim 1 tablet by mouth once dailymontelukast (SINGULAIR) 10 mg tablet Take 1 tablet (10 mg total) by mouth nightly. 90 tablet 0 04/19/2023 07/27/2023 Discontinued (Reorder)naproxen 500 mg oral tablet (20 sources)Nonsteroidal Anti-inflammatory DrugStart: 20-58-8665ymsm 1 tablet by mouth in the morningnaproxen (Naprosyn) 500 MG tablet Take 500 mg by mouth in the morning and 500 mg in the evening. Take with meals. 08/17/2023 Active omeprazole 20 mg delayed release oral capsule (20 sources)Proton Pump InhibitorStart: 20-63-2591xlih 1 capsule by mouth once daily before breakfastomeprazole (PriLOSEC) 20 mg capsule Indications: Gastroesophageal reflux disease with esophagitis without hemorrhage Take 1 capsule (20 mg total) by mouth every morning before breakfast. 90 capsule 2 10/02/2024 ActiveStart: 07-29-2023 End: 78-92-1484owyx 1 capsule by mouth twice daily as needed for painomeprazole (PriLOSEC) 20 mg capsule Take 1 capsule (20 mg total) by mouth 2 (two) times a day as needed (pain). 90 capsule 2 09/28/2024 10/02/2024 DiscontinuedStart: 04-19-2023 End: 00-83-8225vweo 1 capsule by mouth in the morningomeprazole (PriLOSEC) 20 mg capsule Take 1 capsule (20 mg total) by mouth in the morning. 90 capsule 0 04/19/2023 07/27/2023 Discontinued (Reorder)ondansetron 4 mg disintegrating oral tablet (20 sources)Serotonin-3 Receptor AntagonistStart: 33-17-1124wpbh 1 tablet by mouth every eight hours as needed for nausea and vomitingondansetron ODT (ZOFRAN ODT) 4 mg disintegrating tablet Dissolve 1 tablet (4 mg total) on tongue every 8 (eight) hours as needed for nausea or vomiting for up to 10 doses. 10 tablet 03/26/2024 ActiveStart: 07-29-2023 End: 98-18-8714fkasvufcaji ODT (ZOFRAN ODT) 4 mg disintegrating tablet Dissolve 1 tablet (4 mg total) on tongue 3 (three) times a day as needed for nausea for up to 3 doses. 3 tablet 08/15/2023 03/26/2024 DiscontinuedStart: 04-19-2023 End: 68-69-4032vvmwamvewfe ODT (ZOFRAN ODT) 4 mg disintegrating tablet Dissolve 1 tablet (4 mg total) on tongue 3 (three) times a day as needed for nausea for up to 3 doses. 3 tablet 0 04/19/2023 07/27/2023 Discontinued (Reorder)24 hr paliperidone 3 mg extended release oral tablet (20 sources)Atypical AntipsychoticStart: 07-29-2023 End: 48-28-9666ukni 1 tablet by mouth once dailypaliperidone (INVEGA) 3 mg 24 hr tablet Take 1 tablet (3 mg total) by mouth nightly. 90 tablet 10/24/2023 Active Start: 04-19-2023 End: 65-59-7621ybwl 1 tablet by mouth once dailypaliperidone (INVEGA) 3 mg 24 hr tablet Take 1 tablet (3 mg total) by mouth nightly. 90 tablet 0 04/19/2023 07/27/2023 Discontinued (Reorder)predniSONE 20 mg oral tablet (1 source)Start: 10-14-2024 End: 10-38-9715kphd 1 tablet by mouth in the morningpredniSONE (DELTASONE) 20 mg tablet Indications: Acute bronchitis, unspecified organism Take 1 tablet (20 mg total) by mouth in the morning for 5 days. 5 tablet 10/14/2024 10/19/2024 Active QUEtiapine 50 mg oral tablet (20 sources)Atypical AntipsychoticStart: 08-23-2023 End: 53-69-7601crdm 1 tablet by mouth once dailyQUEtiapine (SEROquel) 50 mg tablet Take 1 tablet (50 mg total) by mouth nightly. 90 tablet 08/23/2023 Active Start: 08-23-2023 End: 83-64-6416wkvh 1 tablet by mouth once dailyQUEtiapine (SEROquel) 50 mg tablet Take 1 tablet (50 mg total) by mouth nightly. 90 tablet 08/23/2023 Active Start: 05-32-5108nchl 1 tablet by mouth once dailyQUEtiapine (SEROquel) 50 mg tablet Take 1 tablet (50 mg total) by mouth nightly. 90 tablet 08/23/2023 Active Start: 07-29-2023 End: 93-43-5304wckq 1 tablet by mouth once dailyQUEtiapine (SEROquel) 300 mg tablet Take 1 tablet (300 mg total) by mouth nightly. Takes with 25mg tablet 90 tablet 08/15/2023 ActiveStart: 04-19-2023 End: 33-04-3406dkql 1 tablet by mouth once dailyQUEtiapine (SEROquel) 300 mg tablet Take 1 tablet (300 mg total) by mouth nightly. Takes with 25mg tablet 90 tablet 0 04/19/2023 07/27/2023 Discontinued (Reorder)rizatriptan 10 mg oral tablet (18 sources)Serotonin-1b and Serotonin-1d Receptor AgonistStart: 02-09-2025 rizatriptan (MAXALT) 10 mg tablet Indications: Migraine without aura and with status migrainosus, not intractable Take 1 tablet just after onset of migraine. May repeat the dose after 2 hours if migraine persists. Max of 2 doses per 24 hours. 12 tablet 2 02/09/2025 Activesertraline 100 mg oral tablet (20 sources)Serotonin Reuptake InhibitorStart: 07-29-2023 End: 43-73-7100zfkn 1 tablet by mouth in the morningsertraline (ZOLOFT) 100 mg tablet Take 1 tablet (100 mg total) by mouth in the morning. 90 tablet ActiveStart: 04-19-2023 End: 12-02-3393ycyp 1 tablet by mouth in the morningsertraline (ZOLOFT) 100 mg tablet Take 1 tablet (100 mg total) by mouth in the morning. 90 tablet 0 04/19/2023 07/27/2023 Discontinued (Reorder)simvastatin 20 mg oral tablet (20 sources)HMG-CoA Reductase InhibitorStart: 04-29-2023 End: 78-55-5080qqvp 1 tablet by mouth once dailysimvastatin (ZOCOR) 20 mg tablet Take 1 tablet (20 mg total) by mouth nightly. 90 tablet 3 09/28/2024 Activesod bwzls-gqvgru-mwfnir bottle (NEILMED SINUS RINSE COMPLETE) packet with rinse device nasal solution (10 sources)Start: 88-48-3125qyku 1 dose nasal route in the morningsod dvvan-doozcq-rhinmn bottle (NEILMED SINUS RINSE COMPLETE) packet with rinse device nasal solution Indications: Other chronic sinusitis Administer 1 packet into each nostril in the morning and 1 packet before bedtime. 60 packet 0 07/30/2022 ActivetiZANidine 2 mg oral tablet (3 sources)Central alpha-2 Adrenergic AgonistStart: 10-06-2024 End: 60-92-1472gstp 1 tablet by mouth in the morning, then take 1 tablet by mouth at bedtimetiZANidine (ZANAFLEX) 2 mg tablet Indications: Trapezius muscle strain, left, initial encounter Take 1 tablet (2 mg total) by mouth in the morning and 1 tablet (2 mg total) before bedtime. Do all this for 10 days. 20 tablet 10/06/2024 10/16/2024 Activetopiramate 50 mg oral tablet (20 sources)Start: 02-09-2025 End: 21-44-1307oihzgdlpad (TOPAMAX) 50 mg tablet Indications: Migraine without aura and with status migrainosus, not intractable Take 3 tablets (150 mg) nightly 270 tablet 1 04/27/2025 ActiveStart: 12-09-2024 End: 33-40-8582lggwnbvnrv (TOPAMAX) 50 mg tablet Indications: Migraine without aura and with status migrainosus, not intractable Take 1 tablet (50 mg) nightly for 2 weeks, then increase to 2 tablets (100 mg) nightly 60 tablet 2 12/09/2024 02/09/2025 Discontinued (Reorder)traZODone hydrochloride 50 mg oral tablet (20 sources)Serotonin Reuptake InhibitorStart: 86-37-1035akhq 1 tablet by mouth once dailytraZODone (DESYREL) 50 mg tablet Take 1 tablet (50 mg total) by mouth nightly. 07/07/2024 Activedivalproex sodium 500 mg delayed release oral tablet (20 sources)Mood Stabilizer, Anti-epileptic AgentStart: 07-29-2023 End: 17-84-0813mlvq 1 tablet by mouth in the morning, then take 1 tablet by mouth at bedtimedivalproex (DEPAKOTE) 500 mg EC tablet Take 1 tablet (500 mg total) by mouth in the morning and 1 tablet (500 mg total) before bedtime. 90 tablet 3 08/15/2023 ActiveStart: 04-19-2023 End: 01-34-0150fdfo 1 tablet by mouth in the morning, then take 1 tablet by mouth at bedtimedivalproex (DEPAKOTE) 500 mg EC tablet Take 1 tablet (500 mg total) by mouth in the morning and 1 tablet (500 mg total) before bedtime. 90 tablet 3 04/19/2023 07/27/2023 Discontinued (Reorder) Completed/Discontinued Medications MedicationDrug Class(es)DatesSig (Normalized)Sig (Original)chlorhexidine gluconate 1.2 mg/ml mouthwash (2 sources)Start: 07-22-2023 End: 32-43-1900gxzo 15 mL by mouth in the morningchlorhexidine (PERIDEX) 0.12 % solution Apply 15 mL to the mouth or throat in the morning and 15 mLbefore bedtime. Do all this for 7 days. 120 mL 0 07/22/2023 07/29/2023 clindamycin 300 mg oral capsule (2 sources)Lincosamide AntibacterialStart: 07-22-2023 End: 22-15-0627wdps 1 capsule by mouth every six hoursclindamycin (CLEOCIN) 300 mg capsule Take 1 capsule (300 mg total) by mouth every 6 (six) hours for7 days. 28 capsule 0 07/22/2023 07/29/2023 ExpireddiphenhydrAMINE hydrochloride 25 mg oral capsule (20 sources)Histamine-1 Receptor AntagonistStart: 05-08-2023 End: 24-51-5433vsxo 1 capsule by mouth every six hours as needed for headache diphenhydrAMINE (BENADRYL) 25 mg capsule Indications: Primary cough headache Take 1 capsule (25 mg total) by mouth every 6 (six) hours as needed for sleep (headache). 30 capsule 03/09/2024 10/14/2024Discontinued (Therapy completed) diphenhydrAMINE (BENADryl) 25 MG tablet Take 25 mg by mouth Active methylPREDNISolone (20 sources)CorticosteroidStart: 10-13-2023 End: 59-72-6420jdbyjoUOQKJSLrphfp (MEDROL, NITESH,) 4 mg tablet follow package directions 21 tablet 10/13/2023 04/07/2024 Discontinued (Therapy completed) Start: 79-36-9928prlalhTAVJICUkyyqe (MEDROL, NITESH,) 4 mg tablet follow package directions 21 tablet 10/13/2023 ActiveStart: 20-85-9962yttdqbDBZVKUEcjvhl (MEDROL, NITESH,) 4 mg tablet follow package directions 21 tablet 0 10/13/2023 Activenitrofurantoin, macrocrystals 25 mg / nitrofurantoin, monohydrate 75 mg oral capsule (3 sources)Nitrofuran AntibacterialStart: 04-02-2024 End: 03-86-6124rlts 1 capsule by mouth in the morning, then take 1 capsule by mouth at bedtimenitrofurantoin, macrocrystal-monohydrate, (MACROBID) 100 mg capsule Indications: Dysuria Take 1 capsule (100 mg total) by mouth in the morning and 1 capsule (100 mg total) before bedtime. Do all thisfor 5 days. 10 capsule 04/02/2024 04/07/2024 Discontinued (Therapy completed)SUMAtriptan 100 mg oral tablet (12 sources)Serotonin-1b and Serotonin-1d Receptor AgonistStart: 12-09-2024 End: 69-83-8461AMXCrjqzqrr (IMITREX) 100 mg tablet Indications: Migraine without aura and with status migrainosus,not intractable Take 1 tablet (100 mg total) by mouth once as needed for migraine (Migraine). May repeat in 2 hours if unresolved. Do not exceed 200 mg in 24 hours. 9 tablet 4 12/09/2024 02/09/2025 DiscontinuedStart: 88-96-4353fizq 1 tablet by mouth once as neededSUMAtriptan (IMITREX) 50 mg tablet Indications: Migraine without aura and with status migrainosus, not intractable Take 1 tablet (50 mg total) by mouth once as needed for migraine (Migraine) for up to 30 doses. May repeat in 2 hours if unresolved. Do not exceed 200 mg in 24 hours. 30 tablet 12/03/2024 Active Problems Active Problems Problem ClassificationProblemDateDocumented DateEpisodic/ChronicAcute and chronic tonsillitis (20 sources)Chronic tonsillitis; Translations: [Chronic tonsillitis]Onset: 612589-75-3240KjzyzirRwkfd bronchitis (20 sources)Acute bronchitis; Translations: [Acute bronchitis, unspecified] Onset: 557450-89-1534FjqphtkaVhvrmrw disorders (20 sources)Anxiety state; Translations: [Generalized anxiety disorder]Onset: 295289-81-5330FtemiejEpninhyntowpx disorders (20 sources)Mild intellectual disabilities; Translations: [Intellectual functioning disability ]Onset: 981949-21-2219SbwmsihTjfyfbkx mellitus without complication (20 sources)Type 2 diabetes mellitus without complications; Translations: [Type 2 diabetes mellitus without complication]Onset: 63-97-0915WzvmnalYcohiiyd of white blood cells (20 sources)Leukopenia; Translations: [Decreased white blood cell count, unspecified]Onset: 269183-14-4494ZkixevaCaprgrktd of lipid metabolism (20 sources)Mixed hyperlipidemia; Translations: [Hyperlipidemia]Onset: 056308-74-8722ZfyyjmcVrgmkiloe of teeth and jaw (5 sources)Periapical abscess without sinus; Translations: [Dental caries, unspecified]Onset: 70-09-2998JfbaqevbHhqvjgjp; convulsions (20 sources)Seizure disorder; Translations: [Epilepsy, unspecified, not intractable, without status epilepticus]Onset: hronic Esophageal disorders (2 sources)Gastroesophageal reflux disease; Translations: [Gastro-esophageal reflux disease without esophagitis]40-18-0409UabpqkhDrfwohnts hypertension (20 sources)Essential (primary) hypertension; Translations: [Essential hypertension]Onset: 085020-74-3327KozvsnbAntmqlou; including migraine (10 sources)Episodic tension-type headache; Translations: [Episodic tension-type headache, not intractable]Onset: 043656-98-8912QgehhbcYekmapzb; including migraine (1 source)Headache; including migraineOnset: 37-43-7278Hostgqj control disorders, NEC (1 source)Intermittent explosive disorder; Translations: [INTERMITTENT EXPLOSIVE DISORDER]Onset: 06-58-2644EouegumSlxjxtcjhjfo; infection of eye (except that caused by tuberculosis or sexually transmitteddisease) (1 source)Allergic disorder; Translations: [Acute atopic conjunctivitis, unspecified eye]13-20-0639EvhwkoesPakgypl and fatigue (2 sources)Fatigue; Translations: [Chronic fatigue, unspecified]Onset: 805773-62-2053BoseqchDege disorders (20 sources)Bipolar I disorder; Translations: [Bipolar disorder, unspecified] Onset: 312050-40-7708IflxtceNxhtawt (1 source)Onychomycosis due to dermatophyte ; Translations: [Tinea unguium] 84-77-2606NftswcjuCjkdmcxhmflzol (20 sources)Osteoarthritis; Translations: [Unspecified osteoarthritis, unspecified site]Onset: 552401-65-7086WtbsyfqSzqkx connective tissue disease (1 source)Pain in toe; Translations: [Pain in unspecified toe(s)]08-29-2023 EpisodicOther ear and sense organ disorders (20 sources)Sensorineural hearing loss, bilateral; Translations: [Sensorineural hearing loss, bilateral]Onset: 172302-77-6895AgfbeosMxsgu lower respiratory disease (1 source)Snoring; Translations: [Snoring]62-79-1636AjihbvmuBghhr lower respiratory disease (1 source)Snoring; Translations: [Snoring]Onset: 99-96-2315ErpeqyiySfsxl nervous system disorders (20 sources)Chronic pain; Translations: [Other chronic pain]Onset: 12-26-2023 08-96-9589RhytsqlNekqx nervous system disorders (1 source)Other chronic pain; Translations: [Other chronic pain]Onset: 51-45-4349AbndadmRbbdw non-traumatic joint disorders (1 source)Hip painOnset: 14-13-3572HxchqmtiMcmrj nutritional; endocrine; and metabolic disorders (20 sources)Morbid obesity; Translations: [Morbid (severe) obesity due to excess calories]Onset: 960127-75-5902YkhkzvvQshpn nutritional; endocrine; and metabolic disorders (2 sources)Other obesity due to excess calories; Translations: [Other obesity due to excess calories]Onset: 64-04-9373AwfusykKtqcw nutritional; endocrine; and metabolic disorders (2 sources)Body mass index (BMI) 31.0-31.9, adult; Translations: [Body mass index (BMI) 31.0-31.9, adult]Onset: 37-66-7815QpsasagOqreg nutritional; endocrine; and metabolic disorders (1 source)Body mass index 30+ - obesity; Translations: [Body mass index (BMI) 30.0-30.9, adult]39-49-7805BvkcmgcXhyee nutritional; endocrine; and metabolic disorders (1 source)Body mass index (BMI) 30.0-30.9, adult; Translations: [Body mass index (BMI) 30.0-30.9, adult]Onset: 61-24-7391VymkdlbJlfel nutritional; endocrine; and metabolic disorders (1 source)Morbid (severe) obesity due to excess calories; Translations: [Morbid (severe) obesity due to excess calories]Onset: 68-84-5731NsqegqmWyfnn skin disorders (1 source)Dystrophia unguium; Translations: [Nail dystrophy]04-23-1022Uxmqlyxl Other skin disorders (2 sources)Malassezia folliculitis; Translations: [Other specified follicular disorders]64-61-8587NybdcapzRczlh upper respiratory disease (20 sources)Allergic rhinitis; Translations: [Allergic rhinitis, unspecified] Onset: 603321-81-8292VopadrlGsjok upper respiratory disease (1 source)Seasonal allergy; Translations: [Other seasonal allergic rhinitis] 49-58-4693OmyijjcOxvha upper respiratory infections (20 sources)Chronic sinusitis; Translations: [Other chronic sinusitis]Onset: 966586-32-2634FbosghzWtcvcsygn`s disease (20 sources)Parkinson's disease; Translations: [Parkinson's disease]Onset: 499125-90-7288QssnbmpRjemsvhb codes; unclassified (20 sources)Hypersomnia; Translations: [Hypersomnia, unspecified]Onset: 953022-13-0855ActootoAebgacmv codes; unclassified (20 sources)Obstructive sleep apnea syndrome; Translations: [Obstructive sleep apnea (adult) (pediatric)]Onset: 187177-76-5037GtfdavoHmvzljfy codes; unclassified (2 sources)Sleep apnea, unspecified; Translations: [Sleep apnea, unspecified] Onset: 98-85-1611EbbtakyXetfheyz codes; unclassified (1 source)Obstructive sleep apnea (adult) (pediatric); Translations: [Obstructive sleep apnea (adult) (pediatric)]Onset: 77-28-0256Deexjsu Schizophrenia and other psychotic disorders (20 sources)Schizoaffective disorder, bipolar type; Translations: [Schizoaffective disorder, bipolar type]Onset: 19-52-2550ZdtlqlpYvmflnfqjus; intervertebral disc disorders; other back problems (20 sources)Herniation of nucleus pulposus of lumbar intervertebral disc; Translations: [Other intervertebral disc displacement, lumbar region]Onset: 741447-06-4696UxybmiqOjezznygbagw (1 source)Left shoulder pain, unspecified yubueuqioy37-44-9433Joigzqxttljq (1 source)Obesity, class 1; Translations: [Obesity, class 1]Onset: 10-07-2024 Unclassified (2 sources)New PatientOnset: 66-04-5939Sxcdkjgrclef (1 source)Sleeping ProblemOnset: 69-31-1720Pubsobqcloaf (1 source)Cough, unspecified; Translations: [Cough, unspecified]Onset: 11-03-8846Gayrkziwnbdg (1 source)Coughing Up BloodOnset: 37-64-7919Qfsxhkjwbyvv (1 source)medicare annual wellnessOnset: 03-25-2025 Past or Other Problems Problem ClassificationProblemDateDocumented DateEpisodic/ChronicBlindness and vision defects (4 sources)Eye / vision finding; Translations: [Unspecified visual disturbance] Onset: 415655-91-2981JsnuycaqLynxwgu dysrhythmias (20 sources)Tachycardia, unspecified; Translations: [Tachycardia]Onset: 71-76-5356ClzlustkDkxqerbc mellitus without complication (20 sources)Abnormal glucose level; Translations: [Other abnormal glucose]Onset: 730705-02-8092QbocpowmEdlrqojobhykv symptoms and ill-defined conditions (1 source)Dysuria; Translations: [Dysuria]01-92-1984ZaoyjtemBibldcdt; including migraine (4 sources)Cough headache syndrome; Translations: [Primary cough headache]Onset: 126264-61-4255GlrvtnejRyqkwnxjeoc (20 sources)Hemorrhoids without complication; Translations: [Unspecified hemorrhoids]Onset: 296245-33-8628PkprydimCkxemriacmxfk and screening for infectious disease (2 sources)Patient encounter status; Translations: [Encounter for immunization] 11-52-3138KwlyaageLfub disorders (20 sources)Mood disordersOnset: 03-09-2024 Resolved: 046368-06-0667Oqigynrig of unspecified nature or uncertain behavior (20 sources)Neoplasm of uncertain behavior of skin; Translations: [Neoplasm of uncertain behavior of skin]Onset: 186925-36-8937WrakmwffHvfvcflqrhn chest pain (1 source)Other chest pain; Translations: [Other chest pain]Onset: 01-22-2025 EpisodicOther aftercare (2 sources)Other nursing home (current) drug therapy; Translations: [OTH [facility] CURRENT DRUG THERAPY]Onset: 71-44-7274OqebypvkHqrcr aftercare (1 source)Antibiotic prophylaxis indicated; Translations: [bed bug exterminator (current) use of antibiotics]99-23-0692LkmxbyhzXrlwy connective tissue disease (20 sources)Trochanteric bursitis of right hip; Translations: [Trochanteric bursitis, right hip]Onset: 010859-53-2744NjjqagnfOjlnz connective tissue disease (1 source)Trochanteric bursitis, right hip; Translations: [Trochanteric bursitis, right hip]Onset: 73-80-7569DuvfktiaMwsbc lower respiratory disease (2 sources)Other forms of dyspnea; Translations: [Other forms of dyspnea]Onset: 78-83-7117HiamxoxwUfuvq lower respiratory disease (1 source)Dyspnea, unspecified; Translations: [Dyspnea, unspecified]Onset: 52-86-3757XskbylwyCywop lower respiratory disease (1 source)Other abnormalities of breathing; Translations: [Other abnormalities of breathing]Onset: 40-49-5873MczdjpjmJjhtw nervous system disorders (20 sources)Abnormal gait; Translations: [Unspecified abnormalities of gait and mobility]Onset: 518124-43-0350CletdrbfDnlra non-traumatic joint disorders (2 sources)Pain in left shoulder; Translations: [Pain in joint, shoulder region] Onset: 586608-87-4115AifdsqspAokfj non-traumatic joint disorders (1 source)Shoulder painOnset: 23-48-3502IximzoekObdhz upper respiratory disease (20 sources)Deviated nasal septum; Translations: [Deviated nasal septum]Onset: 949108-58-3724CicwztcqNkssx upper respiratory disease (20 sources)Nasal congestion; Translations: [Nasal congestion]Onset: 02-04-2023 53-68-4209WlbirncqIddjc upper respiratory disease (20 sources)Hypertrophy of nasal turbinates; Translations: [Hypertrophy of nasal turbinates]Onset: 355964-22-4491VbjtpknoAmhzd upper respiratory infections (20 sources)Sinusitis; Translations: [Acute sinusitis, unspecified]Onset: 06-03-2019 Resolved: 493865-90-4923XuwqfpkvVipxqfjeli disorders (not diabetes) (20 sources)Acute pancreatitis; Translations: [Acute pancreatitis without necrosis or infection, unspecified]Onset: 08-12-2020 Resolved: 487800-35-2616SlogijerYjskblhn codes; unclassified (20 sources)Abnormal finding on evaluation procedure; Translations: [Other general symptoms and signs]Onset: 640989-83-9573MkevvgcxSkqopmyi codes; unclassified (1 source)Tobacco use and exposure - finding; Translations: [Tobacco use] 68-41-5571EvipjtmnMnzua and face fractures (20 sources)Fractured nasal septum; Translations: [Fracture of nasal bones, initial encounter for closed fracture]Onset: 575983-16-5453Noxzgava Spondylosis; intervertebral disc disorders; other back problems (20 sources)Disorder of sacrum; Translations: [Sacrococcygeal disorders, not elsewhere classified]Onset: 136654-20-3638QuzrskapOmmtgso and strains (20 sources)Strain of left trapezius muscle; Translations: [Strain of other muscles, fascia and tendons at shoulder and upper arm level, left arm, initial encounter]Onset: 714638-38-6511NpmkmiihZvejlvxdvyng (1 source)Obesity, class 1; Translations: [Obesity, class 1]Onset: 10-07-2024 Results Test NameValueInterpretationReference RangeFacilityMR BRAIN W WO CONTon 09-85-6421JS BRAIN W WO CONTMR BRAIN W WO CONT STUDY: MR BRAIN W WO CONT INDICATION: Migraine without aura and with status migrainosus, not intractable; Visual changes. TECHNIQUE: * Routine multiplanar multisequence MR imaging of the brain was performed with and without intravenous contrast. FINDINGS: No evidence of acute infarct, intracranial hemorrhage, mass effect, midline shift or extra-axial fluid. Ventricles, sulci and cistern are unremarkable. Brain volume is age appropriate. No significant parenchymal signal abnormality. Globes and orbits are unremarkable. Paranasal sinuses are clear. Temporal bones are clear. No pathologic intracranial enhancement. IMPRESSION: * Unremarkable brain, by MR. Finalized by William Fraser on 03/02/2025 2:[address] [facility]CT [facility] CHESTon 11-60-4924UM CTA CHESTCT CTA CHEST CT PULMONARY ANGIOGRAM INDICATION: Hemoptysis . Dyspnea. COMPARISON: 06/29/2021 TECHNIQUE: CT was obtained of the chest after the uneventful bolus administration of intravenous contrast for pulmonary angiogram, and reconstructed using lung and soft tissue algorithms. 3-D maximal intensity projections were created in the coronal and sagittal planes for evaluation of the pulmonary arteries. FINDINGS: Pulmonary Angiogram Diagnostic Quality: Diagnostic to segmental level. PULMONARY ARTERIES: Normal caliber. Degraded by motion, streak artifact. No convincing main, lobar, proximal segmental embolism. More distal emboli may be occult. LUNG/PLEURA: Trachea is clear. . Low lung volumes. Dependent atelectasis or mild edema. No focal consolidation, effusion, or pneumothorax. HEART: Normal size. No significant coronary calcification. No pericardial effusion. Nonaneurysmal aorta. MEDIASTINUM and LYMPH NODES: No enlarged axillary lymph nodes. No enlarged mediastinal lymph nodes. Nondilated esophagus. Steatotic liver. UPPER ABDOMEN: Normal thyroid. No acute osseous abnormality. Spinal stimulator. Prior cervical fusion. MUSCULOSKELETAL AND LOWER NECK 1. No convincing pulmonary embolism, diagnostic to the proximal segmental level (limited by motion and streak artifact). 2. Low lung volumes with atelectasis or mild edema. IMPRESSION: No visualized pulmonary embolism. All CT scans at this facility use dose modulation, iterative reconstruction, and/or weight based dosing when appropriate to reduce radiation dose to as low as reasonably achievable. Finalized by Rnad Pena MD on 01/23/2025 2:10 AMNormalProMethodist [facility] WITH AUTO DIFFERENTIALon 33-37-0680EDEDKPNXF ABSOLUTE COUNT (10*3/UL) BY AUTOMATED COUNT0.0 10*3/uLNormal0.0-0.2PSum[facility] Comment on above:Performed By: #### CBCA #### [facility] ([address] [address] VIRBASOPHILS RELATIVE PERCENT BY AUTOMATED COUNT0.7 %Normal [facility] CenterComment on above:Performed By: #### CBCA #### [facility] ([address] [address] VIRCELLAVISION DIFFERENTIAL TYPEAUTOMATED DIFFERENTIALNormal [facility] CenterComment on above:Performed By: #### CBCA #### [facility] ([address] [address] VIREosinophils (Bld) [#/Vol]0.2 10*3/uLNormal0.0-0.4[facility] CenterComment on above:Performed By: #### CBCA #### [facility] ([address] [address] VIREOSINOPHILS RELATIVE PERCENT BY AUTOMATED COUNT3.5 %Normal [facility] CenterComment on above:Performed By: #### CBCA #### [facility] ([address] [address] VIRErythrocyte distribution width (RBC) [Ratio]14.0 %Normal 11.5-15ProChi St. [facility] Lakeside HospitalComment on above:Performed By: #### CBCA #### [facility] ([address] [address] VIRHematocrit (Bld) [Volume fraction]42.6 %Qgifnr42-20 [facility] CenterComment on above:Performed By: #### CBCA #### [facility] ([address] [place] [address] VIRHemoglobin (Bld) [Mass/Vol]14.2 g/iNOilsit84-57NriImqwpzChi [address] Lakes[facility] HospitalComment on above:Performed By: #### CBCA #### [facility] ([address] [place] [address] VIRLYMPHOCYTES ABSOLUTE COUNT (10*3/UL) BY AUTOMATED COUNT2.4 10*3/uLNormal1.0-3.5PSumma Health [facility] - [facility] Medical CenterComment on above:Performed By: #### CBCA #### [facility] ([address] [place] [address] VIRLYMPHOCYTES RELATIVE PERCENT BY AUTOMATED COUNT38.4 %Normal [facility] CenterComment on above:Performed By: #### CBCA #### [facility] ([address] [place] [address] VIRMCH (RBC) [Entitic mass]27.9 fjUzgcxi62-39JyzRsqkoxSycamore Medical CenterComment on above:Performed By: #### CBCA #### [facility] ([address] [place] [address] VIRMCHC (RBC) [Mass/Vol]33.4 g/lTPukfvp27-29SttFrhqnsChi St[facility] HospitalComment on above:Performed By: #### CBCA #### [facility] ([address] [address] VIRMCV (RBC) [Entitic vol]84 pXXrtgsp74-764CirZbfhdo [facility] HospitalComment on above:Performed By: #### CBCA #### [facility] ([address] [place] [address] VIRMONOCYTES ABSOLUTE COUNT (10*3/UL) BY AUTOMATED COUNT0.6 10*3/uLNormal0.0-0.9[facility] CenterComment on above:Performed By: #### CBCA #### [facility] ([address] [place] [address] VIRMONOCYTES RELATIVE PERCENT BY AUTOMATED COUNT9.2 %Normal [facility] CenterComment on above:Performed By: #### CBCA #### [facility] ([address] [place] [address] VIRNEUTROPHILS ABSOLUTE COUNT BY AUTOMATED COUNT3.1 10*3/uL Normal1.5-6.6[facility] CenterComment on above:Performed By: #### CBCA #### [facility] ([address] [place] [address] VIRNEUTROPHILS RELATIVE PERCENT BY AUTOMATED COUNT48.2 %Normal [facility] CenterComment on above:Performed By: #### CBCA #### [facility] CENTER ([address] [place] [address] VIRPlatelet mean volume (Bld) [Entitic vol]7.8 fLNormal7-12 [facility] CenterComment on above:Performed By: #### CBCA #### [facility] ([address] [place] [address] VIRPlatelets (Bld) [#/Vol]199 10*3/eHFnxdtc974-430IldLhlgxz [facility] HospitalComment on above:Performed By: #### CBCA #### [facility] ([address] [place] [address] VIRRBC COUNT5.10 X10E12/LNormal4.1-5.7ProChi St. Luke'S Health – Lakeside HospitalComment on above:Performed By: #### CBCA #### [facility] ([address] [place] [address] VIRWBC (Bld) [#/Vol]6.3 10*3/uLNormal4-11ProChi St. Luke'S Health – Lakeside HospitalComment on above:Performed By: #### CBCA #### [facility] ([address] [place] [address] VIRCOMPREHENSIVE METABOLIC PANELon 91-75-6461Irtxfnl [Mass/Vol]4.2 g/dLNormal3.2-5.3PSumma Health Wadsworth - Rittman Medical CenterComment on above: Performed By: #### CMP #### [facility] ([address] [place] [address] VIRALP [Catalytic activity/Vol]70 U/YZmoaku04-246YoqPjtjvcChi St. Luke'S Health – Lakeside HospitalComment on above:Performed By: #### CMP #### [facility] ([address] [place] [address] VIRALT [Catalytic activity/Vol]35 U/LNormal<=40ProChi St. Luke'S Health – Lakeside HospitalComment on above:Performed By: #### CMP #### [facility] ([address] [place] [address] VIRAnion gap [Moles/Vol]11 mmol/LNormal5-15ProChi St. Luke'S Health – Lakeside HospitalComment on above:Performed By: #### CMP #### [facility] ([address] [place] [address] VIRAST [Catalytic activity/Vol]32 U/LNormal<=41ProChi St. Luke'S Health – Lakeside HospitalComment on above:Performed By: #### CMP #### [facility] ([address] [place] [address] VIRBilirubin [Mass/Vol]0.6 mg/dLNormal0.3-1.2PSumma Health Wadsworth - Rittman Medical CenterComment on above:Performed By: #### CMP #### [facility] ([address] [place] [address] VIRCalcium [Mass/Vol]9.2 mg/dLNormal8.5-10.5PSumma Health Wadsworth - Rittman Medical CenterComment on above:Performed By: #### CMP #### [facility] ([address] [place] [address] VIRChloride [Moles/Vol]104 mmol/QSalkkv33-166EgmNfyvydChi St. Luke'S Health – Lakeside HospitalComment on above:Performed By: #### CMP #### [facility] ([address] [place] [address] VIRCO2 [Moles/Vol]21 mmol/LYml19-74TjbSxwhmkSumma Health Wadsworth - Ritt[facility] Medical Center Comment on above:Performed By: #### CMP #### [facility] ([address] [place] [address] VIRCreatinine [Mass/Vol]0.93 mg/dLNormal0.70-1.20ProChi St. Luke'S Health – Lakeside HospitalComment on above:Result Comment: METHOD TRACEABLE TO IDMS STANDARDPerformed By: #### CMP #### [facility] ([address] [place] [address] VIREGFR (CKD-EPI) NON-RACE DEPENDENT>^90Normal>=60ProChi St. Luke'S Health – Lakeside HospitalComment on above:Result Comment: eGFR not reported due to non- numeric value for Creatinine. Reported eGFR is based on the CKD-EPI 2021 equation that does not use a race coefficient.Performed By: #### CMP #### [facility] ([address] [place] [address] VIRGlucose [Mass/Vol]90 mg/mCIizlou09-28AwiZwhxvbChi St[address] Luke'S Health – Lakeside HospitalComment on above:Performed By: #### CMP #### [facility] ([address] [place] [address] VIRPotassium [Moles/Vol]3.2 mmol/LLow3.5-5.0ProChi St. Luke'[facility] Health – Lakeside HospitalComment on above:Performed By: #### CMP #### [facility] ([address] [place] [address] VIRProtein [Mass/Vol]7.6 g/dLNormal6.0-8.0ProChi St. Luke'[facility] Health – Lakeside HospitalComment on above:Performed By: #### CMP #### [facility] ([address] [place] [address] VIRSodium [Moles/Vol]136 mmol/LZrpbrm566-825FfsKjvrqu [facility] HospitalComment on above:Performed By: #### CMP #### [facility] ([address] [place] [address] VIRUrea nitrogen [Mass/Vol]10 mg/dLNormal5-23ProChi St. Luke'S Health – Lakeside HospitalComment on above:Performed By: #### CMP #### [facility] ([address] [place] [address] VIRTROP I, HIGH SENSITIVITY 1 HOURon 53-05-4989YPMAIGJB I, HIGH SENSITIVITY3 ng/LNormal<21ProChi St. Luke'S Health – Lakeside HospitalComment on above: Performed By: #### [id number] #### [facility] ([address] [place] [address] VIRTROPONIN I, HIGH SENSITIVITY 0 HOURon 35-45-3440QHWLALPK I, HIGH SENSITIVITY2 ng/LNormal<21ProChi St. Luke'S Health – Lakeside HospitalComment on above: Performed By: #### TNIHS0 #### [facility] ([address] [place] [address] VIROrders Onlyon 37-25-9480Wwzxhw [id number] Laxmi Torres 1975 M Date Provider Department Center 01/06/2025 ROHAN MCLAUGHLIN [facility] Family History Adopted: Yes Family Status - Relation Status Age at Mother Father AliveNormalUniversity of Vidal Medical CenterOffice Visiton 01-01-2025 Follow-up [id number] Laxmi Torres 1975 M Date Provider Department Center 01/01/2025 [id number]-MXJZTUMARCO MUNROE Robe Derick Family History Adopted: Yes Family Status - Relation Status Age at Mother Father Alive Level of Service:19478 [place] OFFICE/OUTPATIENT ESTABLISHED MOD MDM 30 MINNormal [facility], Cancer CenterBASIC METABOLIC PANELon 01-96-5988Tvgiu gap [Moles/Vol]8 mmol/LNormal5-15ProChi St. Luke'S Health – Lakeside HospitalComment on above: Performed By: #### BMP #### [facility] ([address] [address] VIRCalcium [Mass/Vol]9.3 mg/dLNormal8.5-10.5PSumma Health Wadsworth - Rittman Medical CenterComment on above:Performed By: #### BMP #### [facility] ([address] [address] VIRChloride [Moles/Vol]102 mmol/WIifayu44-187IpyCppiguChi St. Luke'S Health – Lakeside HospitalComment on above:Performed By: #### BMP #### [facility] ([address] [address] VIRCO2 [Moles/Vol]27 mmol/ZBlhhkd97-59IsrKsxgqxSumma Health Wadsworth - Rittman Medical CenterComment on above:Performed By: #### BMP #### [facility] ([address] [address] VIRCreatinine [Mass/Vol]0.87 mg/dLNormal0.70-1.20ProChi St. Luke'S Health – Lakeside HospitalComment on above:Result Comment: METHOD TRACEABLE TO IDMS STANDARDPerformed By: #### BMP #### [facility] ([address] [address] VIREGFR (CKD-EPI) NON-RACE DEPENDENT>^90Normal>=60ProChi St. Luke'S Health – Lakeside HospitalComment on above:Result Comment: eGFR not reported due to non- numeric value for Creatinine. Reported eGFR is based on the CKD-EPI 202 equation that does not use a race coefficient.Performed By: #### BMP #### [facility] ([address] [place] [address] VIRGlucose [Mass/Vol]109 mg/tPBmdz40-13PcbWzvnxyChi [address] Luke'S Health – Lakeside HospitalComment on above:Performed By: #### BMP #### [facility] ([address] [place] [address] VIRPotassium [Moles/Vol]3.6 mmol/LNormal3.5-5.0[facility] Medical CenterComment on above:Performed By: #### BMP #### [address] [place] [address] VIRSodium [Moles/Vol]137 mmol/REawudm419-832WojZzxouq [facility] HospitalComment on above:Performed By: #### BMP #### [facility] ([address] [address] VIRUrea nitrogen [Mass/Vol]5 mg/dLNounc health wayne5-23ProChi St. Luke'S Health – Lakeside HospitalComment on above:Performed By: #### BMP #### [facility] ([address] [place] [address] VIRCBC WITH AUTO DIFFERENTIALon 75-49-2827SWEHVMUGF ABSOLUTE COUNT (10*3/UL) BY AUTOMATED COUNT0.0 10*3/uLNoSalem City Hospital Comment on above:Performed By: #### CBCA #### [facility] ([address] [place] [address] VIRBASOPHILS RELATIVE PERCENT BY AUTOMATED COUNT0.6 %Normal [facility] CenterComment on above:Performed By: #### CBCA #### [facility] ([address] [place] [address] VIRCELLAVISION DIFFERENTIAL TYPEAUTOMATED DIFFERENTIALNormal [facility] CenterComment on above:Performed By: #### CBCA #### [facility] ([address] [place] [address] VIREosinophils (Bld) [#/Vol]0.2 10*3/uLNoSalem City HospitalComment on above:Performed By: #### CBCA #### [facility] ([address] [place] [address] VIREOSINOPHILS RELATIVE PERCENT BY AUTOMATED COUNT3.1 %Normal [facility] CenterComment on above:Performed By: #### CBCA #### [facility] ([address] [place] [address] VIRErythrocyte distribution width (RBC) [Ratio]14.3 %Normal 11.5-15[facility] Medical CenterComment on above:Performed By: #### CBCA #### [facility] ([address] [place] [address] VIRHematocrit (Bld) [Volume fraction]43.0 %Lzaghk16-43 [facility] CenterComment on above:Performed By: #### CBCA #### [facility] ([address] [place] [address] VIRHemoglobin (Bld) [Mass/Vol]15.1 g/oKNwrjqa86-17CjgYkofhoSycamore Medical CenterComment on above:Performed By: #### CBCA #### [facility] ([address] [place] [address] VIRLYMPHOCYTES ABSOLUTE COUNT (10*3/UL) BY AUTOMATED COUNT2.5 10*3/uLNoSalem City HospitalComment on above:Performed By: #### CBCA #### [facility] ([address] [place] [address] VIRLYMPHOCYTES RELATIVE PERCENT BY AUTOMATED COUNT39.3 %Normal [facility] CenterComment on above:Performed By: #### CBCA #### [facility] ([address] [place] [address] VIRMCH (RBC) [Entitic mass]29.2 gqZwmnuf21-68ZjfMniegcSycamore Medical CenterComment on above:Performed By: #### CBCA #### [facility] ([address] [place] [address] VIRMCHC (RBC) [Mass/Vol]35.0 g/qQSlyxwc07-20MygZhurucSycamore Medical CenterComment on above:Performed By: #### CBCA #### [facility] ([address] [place] [address] VIRMCV (RBC) [Entitic vol]84 jKGiezlf47-237UiuBwcqzp [facility] HospitalComment on above:Performed By: #### CBCA #### [facility] ([address] [place] [address] VIRMONOCYTES ABSOLUTE COUNT (10*3/UL) BY AUTOMATED COUNT0.6 10*3/uLNoSalem City HospitalComsturgis hospital on above:Performed By: #### CBCA #### [facility] ([address] [place] [address] VIRMONOCYTES RELATIVE PERCENT BY AUTOMATED COUNT9.6 %Normal [facility] CenterComment on above:Performed By: #### CBCA #### [facility] ([address] [place] [address] VIRNEUTROPHILS ABSOLUTE COUNT BY AUTOMATED COUNT3.1 10*3/uL NormalSycamore Medical CenterComsturgis hospital on above:Performed By: #### CBCA #### [facility] ([address] [place] [address] VIRNEUTROPHILS RELATIVE PERCENT BY AUTOMATED COUNT47.4 %Normal [facility] CenterComment on above:Performed By: #### CBCA #### [facility] ([facility]) [address] [place] [address] [place] [address] VIRPlatelet mean volume (Bld) [Entitic vol]7.5 fLNormal7-12 [facility] CenterComment on above:Performed By: #### CBCA #### [facility] ([address] [place] [address] VIRPlatelets (Bld) [#/Vol]209 10*3/gEYvcqci883-216DnrRmoquc [facility] HospitalComment on above:Performed By: #### CBCA #### [facility] ([address] [place] [address] VIRRBC COUNT5.15 X10E12/LNormal4.1-5.7ProChi St. Luke'S Health – Lakeside HospitalComment on above:Performed By: #### CBCA #### [facility] ([address] [place] [address] VIRWBC (Bld) [#/Vol]6.5 10*3/uLNormal4-11[facility] CenterComment on above:Performed By: #### CBCA #### [facility] ([address] [place] [address] VIRMAGNESIUMon 35-99-6800Dvhtpmsav [Mass/Vol]1.8 mg/dLNormal 1.8-2.6ProChi St. Luke'S Health – Lakeside HospitalComment on above:Performed By: #### MG #### [facility] ([facility]) [address] [place] [address]. [place] [address] VIROffice Visiton 52-56-5651Hnnmka-up [id number] Laxmi Torres 1975 Date Provider Department Center 10/07/2024 [id number] RUBEN CARD [facility] Family History Adopted: Yes Level of Service:91779 [place] OFFICE/OUTPATIENT NEW MODERATE MDM 45 MINUTES Reason for Visit and Comments: Palpitations [516373] - Denies palpitations and lightheadedness/syncope. Hypertension [838084] - Was seen in [facility] ED last night for headache. No labs/imaging done in the ED. Chest Pain [893682] Shortness of Breath [638224] - Gets SOB with rest also.NormalUnSumma HealthValproate [Mass/Vol]on 42-61-4751VMGFAOPN ACID44 ug/mLLow 50-100[facility] CenterComment on above:Performed By: #### [id number] #### [facility] ([id number]) [address], [address] [place], [place] [address]IGARO METABOLIC PANLon 01-30-3929Mcksb gap [Moles/Vol]13 mmol/L Normal5-15ProChi St. Luke'S Health – Lakeside HospitalComment on above:Performed By: #### BMP #### [facility] ([id number]) [address], [address] [place], [place] [address]Tqxdlkg [Mass/Vol]10.8 mg/dLHigh8.5-10.5PSumma Health Wadsworth - Rittman Medical CenterComment on above:Performed By: #### BMP #### [facility] ([id number]) [address], [address] [place], [place] [address]Mnlykrzt [Moles/Vol]102 mmol/FWtekuj14-320RdqGzonibChi St. Luke'S Health – Lakeside HospitalComment on above:Performed By: #### BMP #### [facility] ([id number]) [address], [address] [place], [place] [address]NU0 [Moles/Vol]29 mmol/RRiwpfa37-22PjwRkbdgdSumma Health Wadsworth - Rittman Medical Center Comment on above:Performed By: #### BMP #### [facility] ([id number]) [address], [address] [place], [place] [address]Atfwxywhrx [Mass/Vol]0.96 mg/dLNormal0.60-1.30ProChi St. Luke'S Health – Lakeside HospitalComment on above:Result Comment: METHOD TRACEABLE TO IDMS STANDARD Performed By: #### BMP #### [facility] ([id number]) [address], [address] [place], [place] [address]cLKD (CKD-EPI) NON-RACE DEPENDENT>90Normal>59ProChi St. Luke'S Health – Lakeside HospitalComment on above:Result Comment: Reported eGFR is based on the CKD-EPI 2020 equation that does not use a race coefficient.Performed By: #### BMP #### [facility] ([id number]) [address] [address] [place], [place] [address]Xmyojpx [Mass/Vol]107 mg/sSCalw86-11GvdZwwkpgChi St[address] [facility] Comment on above:Performed By: #### BMP #### [facility] ([id number]) [address] [place], [place] [address]Gajkvbpby [Moles/Vol]4.8 mmol/LNormal3.5-5.0ProChi St. Luke'S Health – Lakeside HospitalComment on above:Performed By: #### BMP #### [facility] ([id number]) [address], [address] [place], [place] [address]Xxutjx [Moles/Vol]144 mmol/GDoomwr468-137OplVgagaj [facility] HospitalComment on above:Performed By: #### BMP #### [facility] ([id number]) [address] [address] [place], [place] [address]Bhjg nitrogen [Mass/Vol]9 mg/dLNormal5-23ProChi St. Luke'S Health – Lakeside HospitalComment on above:Performed By: #### BMP #### [facility] ([id number]) [address], [address] [place], [place] [address]Jcsxr Metabolic Panelon 92-29-9820Dfbtc gap [Moles/Vol]13 mmol/L 5 - 15 mmol/LProMedica Health SystemCalcium [Mass/Vol]10.8 mg/dLHigh8.5 - 10.5 mg/dLMarietta Memorial HospitalChloride [Moles/Vol]102 mmol/L98 - 109 mmol/L [facility] HospitalCO2 [Moles/Vol]29 mmol/L22 - 32 mmol/[facility] Clinic FoundationCreatinine [Mass/Vol]0.96 mg/dL0.60 - 1.30 mg/dLMarietta Memorial Hospital Comment on above:METHOD TRACEABLE TO [facility] STANDARDeGFR (CKD-EPI)non-race dependent- [facility] Community HospitalComment on above: Reported eGFR is based on the CKD-EPI 2020 equation that does not use a race coefficient. Glucose [Mass/Vol]107 mg/xOEnim02 - 99 mg/dLMarietta Memorial Hospital Interpretation and review of laboratory resultsAbNuvance Health Potassium [Moles/Vol]4.8 mmol/L3.5 - 5.0 mmol/TriHealth SystemSodium [Moles/Vol]144 mmol/L134 - 146 mmol/[facility] Clinic FoundationUrea nitrogen [Mass/Vol]9 mg/dL5 - 23 mg/dLSaint John Vianney Hospital GLYCOHEMOGLOBIN A1Con 62-08-0751WDJ RECOMMENDATIONSEE [facility] Surgical HospitalComment on above:Result Comment: ADA RECOMMENDED LIMIT 4.0 - 6.0 ADA THERAPEUTIC TARGET < 7.0 ACTION SUGGESTED > 7.0Performed By: #### A1C #### [facility] [address] [address] [address] Beverly KraftGlucose [Mass/Vol]123 mg/dLNoCleveland Clinic Marymount HospitalComment on above:Performed By: #### A1C #### [facility] [address] [address] [address] Beverly KraftHbA1c (Bld) [Mass fraction]5.9 %Normal4.5-6.2The [facility] Medical CenterComsturgis hospital on above:Performed By: #### A1C #### [facility] [address] [address] [address] Beverly KraftLIPID PROFILEon 31-37-3741HUTF-HDL RATIO NORMSCleveland Clinic Lutheran HospitalComsturgis hospital on above:Result Comment: 3.3 - 4.4 LOW RISK 4.4 - 7.1 AVERAGE RISK 7.1 - 11.0 MODERATE RISK >11.0 HIGH RISKPerformed By: #### LIPID, BMP, AST, ALT #### [facility] [address] [address] [address] Beverly KraftCholesterol [Mass/Vol]181 mg/dLNormal<=200[facility] Comment on above:Performed By: #### LIPID, BMP, AST, ALT #### [facility] [address] [address] [address] Beverly Menchacaesterol in HDL [Mass/Vol]34 mg/dLCritically lxx54-55OcnOur Lady of Mercy Hospital - [facility] on above:Performed By: #### LIPID, BMP, AST, ALT #### [facility] [address] [place] [address] Dr. Beverly Menchacaesterol in LDL [Mass/Vol]110.0 mg/dLMercy Health Kings Mills HospitalComment on above:Performed By: #### LIPID, BMP, AST, ALT #### [facility] [address] [place] [address] Dr. Beverly Velez.total/Cholesterol in HDL [Mass ratio]5.3 {ratio} NormalOur Lady of Mercy Hospital - Anderson on above:Performed By: #### LIPID, BMP, AST, ALT #### [facility] [address] [place] [address] Dr. Beverly Tubbs NORMAL> or = 60 mg/dl - LOW CARDIOVASCULAR RISK <40 mg/dl - HIGH CARDIOVASCULAR RISKMercy Health Kings Mills HospitalComsturgis hospital on above:Performed By: #### LIPID, BMP, AST, ALT #### [facility] [address] [place] [address] Dr. Beverly Zimmerman CALC NORMALSEE [facility] Surgical HospitalComsturgis hospital on above:Result Comment: <100 mg/dl OPTIMAL 100 - 129 mg/dl NEAR OR ABOVE OPTIMAL 130 - 159 mg/dl BORDERLINE HIGH 160 - 189 mg/dl HIGH >190 mg/dl VERY HIGH Performed By: #### LIPID, BMP, AST, ALT #### [facility] [address] [address] [address] Beverly KraftTriglyceride [Mass/Vol]185 mg/dLCritically high<=150The [facility] Medical CenterComment on above:Performed By: #### LIPID, BMP, AST, ALT #### [facility] [address] [place] [address] Dr. Beverly KraftVLDL CALC37.0 mg/dLNormalThe [facility] Medical CenterComment on above: Performed By: #### LIPID, BMP, AST, ALT #### [facility] [address] [place] [address] Dr. Beverly May CREAT RATIO RANDOMon 35-02-6081fDVE<1.3Normal<=30.0The [facility] Medical CenterComment on above:Performed By: #### MCRR #### [facility] [address] [place] [address] Dr. Beverly Golden CR RATIO9.3 mg/gNormal0.0-29.9The [facility] Medical CenterComment on above:Performed By: #### MCRR #### [facility] [address] [place] [address] Dr. Beverly Servin FLIJU994.55 mg/uBKpwkfl27.00-300.00[facility] Comment on above:Performed By: #### MCRR #### [facility] [address] [place] [address] Dr. Beverly KraftPROF CHEM 8 (BAS METB)on 50-32-9084Nplzh gap [Moles/Vol]13.0 mmol/LNormalThe [facility] Medical CenterComment on above:Performed By: #### LIPID, BMP, AST, ALT #### [facility] [address] [place] [address] Dr. Beverly KraftCalcium [Mass/Vol]9.9 mg/dLNormal8.5-10.1The [facility] Comment on above:Performed By: #### LIPID, BMP, AST, ALT #### [facility] [address] [place] [address] Dr. Beverly KraftChloride [Moles/Vol]102 mmol/WKsgtoq36-315Zxc [facility] Comment on above:Performed By: #### LIPID, BMP, AST, ALT #### [facility] [address] [address] [address] Beverly KraftCO2 [Moles/Vol]29.1 mmol/HKxessk80.0-32.0The [facility] Comment on above:Performed By: #### LIPID, BMP, AST, ALT #### [facility] [address] [address] [address] Beverly KraftCreatinine [Mass/Vol]0.87 mg/dLNormal0.70-1.30The [facility] Medical CenterComment on above:Performed By: #### LIPID, BMP, AST, ALT #### [facility] [address] [address] [address] Paul ChangEGFR-AF HAITIAN>60Normal>=60The [facility] Medical CenterComment on above:Performed By: #### LIPID, BMP, AST, ALT #### [facility] [address] [address] [address] Beverly BishopGFR-NON AF HAITIAN>60Normal>=60The [facility] Medical CenterComment on above:Performed By: #### LIPID, BMP, AST, ALT #### [facility] [address] [address] [address] Beverly KraftGlucose [Mass/Vol]113 mg/dLCritically [id number] [facility] CenterComment on above:Performed By: #### LIPID, BMP, AST, ALT #### [facility] [address] [address] [address] Beverly KraftPotassium [Moles/Vol]4.1 mmol/LNormal3.5-5.1The [facility] Comment on above:Performed By: #### LIPID, BMP, AST, ALT #### [facility] [address] [address] [address] Beverly KraftSodium [Moles/Vol]140 mmol/BXhubem445-230Voj [facility] Comment on above:Performed By: #### LIPID, BMP, AST, ALT #### [facility] [address] [place] [address] Dr. Beverly Rodriguez nitrogen [Mass/Vol]13.0 mg/dLNormal7.0-18.0The [facility]amisburgment on above:Performed By: #### LIPID, BMP, AST, ALT #### [facility] [facility] [address] [place] [address] Dr. Beverly Rodriguez nitrogen/Creatinine [Mass ratio]14.9 mg/mgNormalThe [facility] CenterComment on above:Performed By: #### LIPID, BMP, AST, ALT #### [facility] [address] [place] [address] Dr. Beverly Leslie 50-30-2625LVC [Catalytic activity/Vol]21 U/HBpzplz33-27Wnw [facility] CenterComment on above:Performed By: #### LIPID, BMP, AST, ALT #### [facility] [address] [place] [address] Dr. Beverly Harrison 31-15-9899QCZ [Catalytic activity/Vol]42 U/SVfgoat83-56Xpq [facility]gment on above:Performed By: #### LIPID, BMP, AST, ALT #### [facility] [address] [place] [address] Dr. Beverly Solomon/ VALPROIC ACIDon 04-56-1879TZCRHUJO72.9 ug/mlNormal 50.0-100.0The [facility] CenterComment on above:Performed By: #### VALP #### [facility] [address] [place] [address] Dr. Beverly Montanez AUTO DIFFon 66-78-3656DGTR #0.0 103/ulNormal0.0-0.1The [facility] on above:Performed By: #### LIPID, BMP, AST, ALT #### [facility] [address] [place] [address] Dr. Beverly KraftBasophils/100 WBC (Bld)0.5 %Normal0.2-2.0The [facility] Comment on above:Performed By: #### LIPID, BMP, AST, ALT #### [facility] [address] [address] [address] Beverly Bright #0.3 103/ulNormal0.0-0.7The [facility] CenterComment on above: Performed By: #### LIPID, BMP, AST, ALT #### [facility] [address] [place] [address] Dr. Beverly Bishoposinophils/100 WBC (Bld)4.4 %Normal0.9-7.0The [facility] Comment on above:Performed By: #### LIPID, BMP, AST, ALT #### [facility] [address] [place] [address] Dr. Beverly Bishoprythrocyte distribution width (RBC) [Ratio]12.9 %Dkprus57.0-15.0 The [facility] CenterComment on above:Performed By: #### LIPID, BMP, AST, ALT #### [facility] [address] [place] [address] Dr. Beverly KraftHematocrit (Bld) [Volume fraction]44.0 %Vcwmjy38.0-54.0The [facility] CenterComment on above:Performed By: #### LIPID, BMP, AST, ALT #### [facility] [address] [place] [address] Dr. Beverly KraftHemoglobin (Bld) [Mass/Vol]14.9 g/aXAvqord17.0-18.0The [facility] CenterComment on above:Performed By: #### LIPID, BMP, AST, ALT #### [facility] [address] [place] [address] Dr. Beverly Olivares #0.02 10e3/ulNormal0.00-0.03The [facility] CenterComment on above:Performed By: #### LIPID, BMP, AST, ALT #### [facility] [address] [place] [address] Dr. Beverly Olivares %0.3 %Normal0.0-0.5The [facility] CenterComment on above: Performed By: #### LIPID, BMP, AST, ALT #### [facility] [address] [place] [address] Dr. Beverly Amezcua #2.0 103/ulNormal1.2-3.8The [facility] CenterComment on above:Performed By: #### LIPID, BMP, AST, ALT #### [facility] [address] [place] [address] Dr. Beverly Kennedyhocytes/100 WBC (Bld)34.7 %Yhpbbu06.5-60.0The [facility] CenterComment on above:Performed By: #### LIPID, BMP, AST, ALT #### [facility] [address] [place] [address] Dr. Beverly Collier DIFF REQNONormalThe [facility] CenterComment on above: Performed By: #### LIPID, BMP, AST, ALT #### [facility] [address] [place] [address] Dr. Beverly Michel (RBC) [Entitic mass]29.9 lzQbyjfu07.9-34.0The [facility] CenterComment on above:Performed By: #### LIPID, BMP, AST, ALT #### [facility] [address] [place] [address] Dr. Beverly Jacinto (RBC) [Mass/Vol]33.9 g/fBJepzeo89.9-35.2The [facility] on above:Performed By: #### LIPID, BMP, AST, ALT #### [facility] [address] [place] [address] Dr. Beverly Jacinto (RBC) [Entitic vol]88.2 wRDabism29.0-94.0The [facility] on above:Performed By: #### LIPID, BMP, AST, ALT #### [facility] [address] [place] [address] Dr. Beverly [place] #0.6 103/ulNormal0.3-0.8The [facility] CenterComment on above:Performed By: #### LIPID, BMP, AST, ALT #### [facility] [address] [place] [address] Dr. Beverly Mataocytes/100 WBC (Bld)10.3 %Normal1.7-12.0The [facility] Comment on above:Performed By: #### LIPID, BMP, AST, ALT #### [facility] [address] [place] [address] Dr. Beverly Mckeon #2.9 103/ulNormal1.4-6.5The [facility] CenterComment on above:Performed By: #### LIPID, BMP, AST, ALT #### [facility] [address] [place] [address] Dr. Beverly Vazquezophils/100 WBC (Bld)49.8 %Ctmlcj46.0-75.0The [facility] CenterComment on above:Performed By: #### LIPID, BMP, AST, ALT #### [facility] [address] [place] [address] Dr. Beverly Sandhulet mean volume (Bld) [Entitic vol]8.8 fLCritically low 9.5-13.5The [facility] CenterComment on above:Performed By: #### LIPID, BMP, AST, ALT #### [facility] [address] [place] [address] Dr. Beverly KraftPLT166 103/pzQrscsz696-896Pqe [facility] CenterComment on above: Performed By: #### LIPID, BMP, AST, ALT #### [facility] [address] [place] [address] Dr. Bevelry KraftRBC4.99 106/ulNormal4.70-6.10The [facility] CenterComment on above:Performed By: #### LIPID, BMP, AST, ALT #### [facility] [address] [place] [address] Dr. Beverly KraftWBC5.9 103/ulNormal4.0-11.0The [facility] CenterComment on above: Performed By: #### LIPID, BMP, AST, ALT #### [facility] [address] [place] [address] Dr. Beverly South T4on 07-06-0388Vpdt T4 [Mass/Vol]0.77 ng/dLNormal0.76-1.46 The [facility] CenterComment on above:Performed By: #### LIPID, BMP, AST, ALT #### [facility] [address] [place] [address] Dr. Beverly KraftMAGNESIUMon 45-04-7230Gecpskyug [Mass/Vol]1.9 mg/dLNormal1.8-2.4 The [facility] CenterComment on above:Performed By: #### CMP, TSH, MG #### [facility] [address] [place] [address] Dr. Beverly KraftPROJacklyn 14(COMP METB)on 23-46-7235Ibfffxr [Mass/Vol]4.2 g/dLNormal 3.4-5.0The [facility] CenterComment on above:Performed By: #### CMP, TSH, MG #### [facility] [address] [place] [address] Dr. Beverly KraftAlbumin/Globulin [Mass ratio]1.0 {ratio}NormalThe [facility] CenterComment on above:Performed By: #### CMP, TSH, MG #### [facility] [address] [place] [address] Dr. Beverly Darling [Catalytic activity/Vol]94 U/STpaubl41-537Hzc [facility] CenterComment on above:Performed By: #### CMP, TSH, MG #### [facility] [address] [place] [address] Dr. Beverly Aceves [Catalytic activity/Vol]43 U/RNxnzky62-18Dkp [facility] on above:Performed By: #### CMP, TSH, MG #### [facility] [address] [place] [address] Dr. Beverly Andrade gap [Moles/Vol]12.5 mmol/LNormalThe [facility] on above:Performed By: #### CMP, TSH, MG #### [facility] [address] [place] [address] Dr. Yilan ChangAST [Catalytic activity/Vol]16 U/YJbmtbr67-15Wvt [facility] CenterComment on above:Performed By: #### CMP, TSH, MG #### [facility] [address] [place] [address] Dr. Beverly KraftBilirubin [Mass/Vol]0.4 mg/dLNormal0.2-1.0[facility] Comment on above:Performed By: #### CMP, TSH, MG #### [facility] [address] [place] [address] Dr. Beverly KraftCalcium [Mass/Vol]9.9 mg/dLNormal8.5-10.1The [facility] Comment on above:Performed By: #### CMP, TSH, MG #### [facility] [address] [place] [address] Dr. Beverly KraftChloride [Moles/Vol]102 mmol/ATldijr66-752FdsMercy Health St. [facility] Comment on above:Performed By: #### CMP, TSH, MG #### [facility] [address] [place] [address] Dr. Beverly KraftCO2 [Moles/Vol]31.4 mmol/PKhuzsi58.0-32.0[facility] Comment on above:Performed By: #### CMP, TSH, MG #### [facility] [address] [place] [address] Dr. Beverly KraftCreatinine [Mass/Vol]0.84 mg/dLNormal0.70-1.30The [facility] CenterComment on above:Performed By: #### CMP, TSH, MG #### [facility] [address] [place] [address] Dr. Beverly BishopGFR-AF HAITIAN>60Normal>=60The [facility] CenterComment on above:Performed By: #### CMP, TSH, MG #### [facility] [address] [place] [address] Dr. Beverly BishopGFR-NON AF HAITIAN>60Normal>=60The [facility] CenterComment on above:Performed By: #### CMP, TSH, MG #### [facility] [address] [address] [address] Beverly KraftGlobulin (S) [Mass/Vol]4.4 g/dLNormCorey HospitalComment on above:Performed By: #### CMP, TSH, MG #### [facility] [address] [place] [address] Dr. Beverly KraftGlucose [Mass/Vol]95 mg/cXIzjxxq89-238UqoMercy Health St. [facility] Comment on above:Performed By: #### CMP, TSH, MG #### [facility] [address] [place] [address] Dr. Beverly KraftPotassium [Moles/Vol]3.9 mmol/LNormal3.5-5.1The [facility] Comment on above:Performed By: #### CMP, TSH, MG #### [facility] [address] [place] [address] Dr. Beverly KraftProtein [Mass/Vol]8.6 g/dLCritically high6.4-8.2The [facility] CenterComment on above:Performed By: #### CMP, TSH, MG #### [facility] [address] [place] [address] Dr. Beverly KraftSodium [Moles/Vol]142 mmol/QIoxdjd445-875Zsv [facility] Comment on above:Performed By: #### CMP, TSH, MG #### [facility] [address] [place] [address] Dr. Beverly KraftUrea nitrogen [Mass/Vol]10.0 mg/dLNormal7.0-18.0The [facility] CenterComment on above:Performed By: #### CMP, TSH, MG #### [facility] [address] [place] [address] Dr. Beverly KraftUrea nitrogen/Creatinine [Mass ratio]11.9 mg/mgNoCleveland Clinic Marymount HospitalComment on above:Performed By: #### CMP, TSH, MG #### [facility] [address] [place] [address] Dr. Beverly Christianson 64-21-9385UAS9.056 uIU/mLNormal0.358-3.740The [facility] CenterComment on above:Performed By: #### CMP, TSH, MG #### [facility] [address] [address] [address] Beverly KraftCT CERVICAL SPINE WO CONTRASTon 25-06-1551NT CERVICAL SPINE WO CONTRASTEXAMINATION: CT OF THE CERVICAL SPINE WITHOUT CONTRAST [...] Signed by: Esdras Chapa DO 12/23/21 Final resultNormalMercy [facility] HEAD WO CONTRASTon 62-40-4255FP HEAD WO CONTRASTEXAMINATION: CT OF THE HEAD WITHOUT CONTRAST 12/23/2021 [...] Signed by: Titus Ortega MD 12/23/21 Final resultNormPremier Health Miami Valley HospitalXR ANKLE LEFT (MIN 3 VIEWS)on 12-23-2021 XR ANKLE LEFT (MIN 3 VIEWS)EXAMINATION: THREE XRAY VIEWS OF THE LEFT ANKLE [...] Signed by: Esdras Chapa DO 12/23/21 Final resultNoSumma Health Akron CampusXR HIP RIGHT (2-3 VIEWS)on [id number] HIP RIGHT (2-3 VIEWS)EXAMINATION: TWO XRAY VIEWS OF THE RIGHT HIP [...] Signed by: Titus Ortega MD 12/23/21 Final resultNoSumma Health Akron CampusMRI THORACIC SPINE WO CONTRASTon [id number] THORACIC SPINE WO CONTRASTUnSumma Health Department of Radiology [address] [place] [id number] Patient Name: LAXMI TORRES : 1975 Sex: M Age: Race: White Pt. Location: Patient Status: D Ordered Date: 09/26/2021 1:50:00 PM Completed Date: 10/26/2021 12:49 PM Requesting Provider: ENEDINA RUSSELL Attending Provider: ENEDINA RUSSELL Report Copy To: ARACELIS ROBLES Signs & Symptoms: M54.14 Radiculopathy, thoracic region I10 History: Alligator, will fax SS Ortho HW C and T spine Comments: Ordering Provider - A DREW MSN WALL CRANE OPERATOR Exam: MRI THORACIC SPINE WO CONTRAST MRI THORACIC SPINE WO CONTRAST 10/26/2021 12:49 PM SIGNS AND SYMPTOMS: M54.14 Radiculopathy, thoracic region I10 TECHNOLOGIST COMMENTS: c/o mid back pain QUESTION FOR THE RADIOLOGIST: Ordering Provider - A DREW MSN WALL CRANE OPERATOR PROTOCOL: The following pulse sequences were utilized [...] abnormality. Electronically signed: Shea Olivares. Transcribed by: [email or web address], User Resident: Electronically Signed by: SHEA OLIVARES @ 10/28/2021 08:10 AMNormalThe [facility] MD, Cancer CenterComment on above:Order Comment: Ordering Provider - Parish RUSSELL MSN CNPCT LUMBAR SPINE W CONTRASTon [id number] LUMBAR SPINE W CONTRASTUnSumma Health Department of Radiology [address] [place] [phone] Patient Name: LAXMI TORRES : 1975 Sex: M Age: Race: White Pt. Location: Patient Status: D Ordered Date: 09/26/2021 2:10:00 PM Completed Date: 10/17/2021 03:05 PM Requesting Provider: ENEDINA RUSSELL Attending Provider: ENEDINA RUSSELL Report Copy To: ARACELIS ROBLES Signs & Symptoms: M54.9 Dorsalgia, unspecified I10 History: Emely Comments: myelogram, back and hip pain, leg numbness, previous surgery, r/o stenosis , Exam: CT LUMBAR SPINE W CONTRAST CT LUMBAR SPINE W CONTRAST 10/17/2021 3:05 [...] narrowing. Electronically signed: Ken May. Transcribed by: [email or web address], User Resident: KEN MAY Electronically Signed by: KEN MAY @ 10/19/2021 11:39 AM I personally read this/these film(s) with this [facility] HospitalComment on above:Order Comment: myelogram, back and hip pain, leg numbness, previous surgery, r/o stenosis ,LUMBAR MYELOGRAMon [id number] MYELOGRAMUnSumma Health Department of Radiology [address] [place] [phone] Patient Name: LAXMI TORRES : 1975 Sex: M Age: Race: White Pt. 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 Electronically signed: Anh Monzon. Transcribed by: [email or web address], User Resident: Electronically Signed by: ANH MONZON @ 10/17/2021 03:17 [facility] CenterComment on above:Order Comment: , myelogram, back and hip pain, leg numbness, previous surgery, r/o stenosis , myelogram, back and hip pain, leg numbness, previous surgery,MRI CERVICAL SPINE W WO CONTRASTon [id number] CERVICAL SPINE W WO CONTRASTUnSumma Health Department of Radiology [address] [place] [phone] Patient Name: LAXMI TORRES : 1975 Sex: M Age: Race: White Pt. Location: Patient Status: D Ordered Date: 02/07/2021 2:45:00 PM Completed Date: 03/21/2021 09:55 AM Requesting Provider: ENEDINA RUSSELL Attending Provider: Report Copy To: Signs & Symptoms: M47.812 Spondylosis w/o myelopathy or radiculopathy, cervical region I10 History: Alligator, Hardware per clinic, will fax medicare no pc required med nec passed 02/15/21 *kw [id number] Comments: previous neck surgery, now with neck and left arm pain and numbness, r/o disc herniation,nerve compression Exam: MRI CERVICAL SPINE W WO CONTRAST MRI CERVICAL SPINE W WO CONTRAST 03/21/2021 [...] picture Electronically signed: Carley Mckenna. Transcribed by: [email or web address], User Resident: Electronically Signed by: CARLEY MCKENNA @ 03/22/2021 08:57 AMNormalThe [facility] MD, Cancer CenterComment on above:Order Comment: Ordering Provider - A DREW CROCKETT CNPBASIC METABOLIC PANELon [id number] [Mass/Vol]10.3 mg/dL Normal8.6-10.3The [facility] MD, Cancer CenterComment on above:Performed By: #### 26766, 18824, 75134, 58551 #### [facility] [address] [place] [address], USAChloride [Moles/Vol]90 mmol/HJch41-643Bym [facility], Cancer CenterComment on above:Performed By: #### 15207, 08625, 72758, 01136 #### [facility] [address] [place] [address], USACO2 [Moles/Vol]21 mmol/RBjhamz96-30Lwn [facility], Cancer CenterComment on above:Performed By: #### 11034, 25732, 48411, 35860 #### [facility] [address] [place] [address], USACreatinine [Mass/Vol]0.75 mg/dLNormal0.70-1.30The [facility], Cancer CenterComment on above:Performed By: #### 69733, 92004, 90682, 70624 #### [facility] [address] [place] [address], USAGFR/1.73 sq M.predicted among blacks MDRD (S/P/Bld) [Vol rate/Area]mL/min/{1.73_m2}Normal>60The [facility] Comment on above:Performed By: #### 51158, 67616, 95439, 72388 #### [facility] [address] [place] [address], USAGFR/1.73 sq M.predicted among non-blacks MDRD (S/P/Bld) [Vol rate/Area]mL/min/{1.73_m2}Normal>60The [facility] Comment on above:Performed By: #### 12774, 62708, 77179, 78165 #### [facility] [address] [place] [address], USAGlucose [Mass/Vol]382 mg/xNOmbr10-433Rql [facility] Cancer CenterComment on above:Performed By: #### 65377, 21671, 78758, 46905 #### [facility] [address] [place] [address], USAPotassium [Moles/Vol]3.2 mmol/LLow3.5-5.1The [facility], Cancer CenterComment on above:Performed By: #### 63343, 73045, 39167, 18553 #### [facility] [address] [facility] [place] [address], USASodium [Moles/Vol]130 mmol/HLsj806-389Jzp [facility], Cancer CenterComment on above:Performed By: #### 43929, 23145, 70060, 67474 #### [facility] [address] [facility] [place] [address], USAUrea nitrogen [Mass/Vol]11 mg/dLNormal7-25The [facility], Cancer CenterComment on above:Performed By: #### 78032, 87160, 78497, 07305 #### [facility] [address] [facility] [place] [address], [facility] HOSPITALCBC W/DIFFon 35-97-7165OYQ IMM GRANS0.0 10*3/uLNormal 0.0-0.2The [facility], Cancer CenterComment on above:Performed By: #### 97336 #### [facility] [address] [facility] [place] [place] [address], USAABS NEUTROPHILS4.6 10*3/uLNormal1.6-7.6The [facility] Cancer CenterComment on above:Performed By: #### 42162 #### [facility] [address] [facility] [place] [address], USABasophils (Bld) [#/Vol]0.0 10*3/uLNormal0.0-0.2The [facility] Cancer CenterComment on above:Performed By: #### 67527 #### [facility] [address] [facility] [place] [address], [facility]AG[facility]NA HOSPITALBasophils/100 WBC (Bld)0.4 %Normal0.0-1.0The [facility], Cancer CenterComment on above:Performed By: #### 82236 #### [facility] [address] [place] [address], USAEosinophils (Bld) [#/Vol]0.1 10*3/uLNormal0.0-0.5The [facility] Cancer CenterComment on above:Performed By: #### 62999 #### [facility] [address] [place] [address], USAEosinophils/100 WBC (Bld)1.5 %Normal0.0-6.0The [facility], Cancer CenterComment on above:Performed By: #### 64632 #### [facility] [address] [facility] [place] [place] [address], USAErythrocyte distribution width (RBC) [Ratio]13.0 %Normal 11.5-15.0The [facility], Cancer CenterComment on above:Performed By: #### 91874 #### [facility] [address] [facility] [place] [place] [address], USAHematocrit (Bld) [Volume fraction]46.0 %Scjvsj28.0-50.0The [facility], Cancer CenterComment on above:Performed By: #### 29536 #### [facility] [address] [facility] [facility] [place] [address], USAHemoglobin (Bld) [Mass/Vol]16.8 g/dZQtvvbb21.0-17.0The [facility], Cancer CenterComment on above:Performed By: #### 72196 #### [facility] [address] [facility] [place] [place] [address], USAIMMATURE GRANS0.4 %Normal0.0-1.0The [facility], Cancer CenterComment on above:Performed By: #### 64383 #### [facility] [address] [facility] [place] [place] [address], USALymphocytes (Bld) [#/Vol]2.6 10*3/uLNormal1.2-4.0The [facility] Cancer CenterComment on above:Performed By: #### 94081 #### [facility] [address] [place] [address], USALymphocytes/100 WBC (Bld)32.3 %Hcjdeg13.0-45.0The [facility], Cancer CenterComment on above:Performed By: #### 37638 #### [facility] [address] [place] [address], [facility]ALESTERH (RBC) [Entitic mass]28.8 amLwehpv83.0-33.0The [facility] Cancer CenterComment on above:Performed By: #### 93777 #### [facility] [facility] [address] [place] [address], [facility]PITALMCHC (RBC) [Mass/Vol]36.5 g/rVKwhu74.0-35.0The [facility] MD, Cancer CenterComment on above:Performed By: #### [id number] #### [facility] [address] [place] [address], [facility] HOSPITALMCV (RBC) [Entitic vol]78.8 fLLow82.0-98.0The [facility], Cancer CenterComment on above:Performed By: #### [id number] #### [facility] [address] [place] [address], USAMonocytes (Bld) [#/Vol]0.7 10*3/uLNormal0.1-1.0The [facility], Cancer CenterComment on above:Performed By: #### [id number] #### [facility] [address] [place] [address], USAMONOS8.6 %Normal5.0-12.0The [facility], Cancer CenterComment on above:Performed By: #### [id number] #### [facility] [address] [place] [address], USANeutrophils/100 WBC (Bld)56.8 %Wbauqf06.0-72.0The [facility], Cancer CenterComment on above:Performed By: #### 08630 #### [facility] [address] [place] [address], USANucleated RBC/100 WBC (Bld) [Ratio]0 %Normal0-0The [facility], Cancer CenterComment on above:Performed By: #### [id number] #### [facility] [address] [facility] [address], USAPLAT NNG757 10*3/gANvydem449-157Enb [facility], Cancer CenterComment on above:Performed By: #### [id number] #### [facility] [address] [facility] [place] [address], USARBC (Bld) [#/Vol]5.84 10*6/uLHigh4.20-5.70The [facility], Cancer CenterComment on above:Performed By: #### [id number] #### [facility] [address] [facility] [place] [place] [address], USAWBC (Bld) [#/Vol]8.07 10*3/uLNormal4.00-10.60The [facility], Cancer CenterComment on above:Performed By: #### [id number] #### [facility] [address] [facility] [place] [place] [address], USAMAGNESIUM BLOODon [id number] [Mass/Vol]1.9 mg/dL Normal1.9-2.7The [facility], Cancer CenterComment on above:Performed By: #### 89672, 37395, 58858, 70200 #### [facility] [address] [facility] [place] [place] [address], USAPOC SARS COV2 ANTIGEN NEGATIVEon [id number] SARS COV2 ANTIGEN NEGNegativeNormalNEGATIVEThe [facility] MD, Cancer CenterComment on above:Result Comment: Negative results from patients with symptom onset beyond [...] signs and symptoms consistent with COVID-19. The [employer] COVID-19 Ag Card is a lateral flow [...] Waiver, Certificate of Compliance, or Certificate of Accreditation.Performed By: #### [id number] #### [address] [place] [address], USAPORTABLE CHEST 1 VIEWon [id number] CHEST 1 VIEW [facility] Department of Radiology [address] [place] [id number] Patient Name: LAXMI TORRES : 1975 Sex: M Age: Race: White Pt. Location: [facility] Patient Status: E Ordered Date: 03/10/2021 2:25:00 PM Completed Date: 03/10/2021 03:10 PM Requesting Provider: TRINA DELA CRUZ Attending Provider: LAXMI COOPER Report Copy To: Signs & Symptoms: Chest Pain History: Comments: Evaluate for Cardiomegaly Exam: PORTABLE CHEST 1 VIEW CLINICAL INFORMATION: pt states having high blood pressure. Chest Pain. COMPARISON: 04/05/2015. VIEWS: 1. IMPRESSION: 1. No pulmonary edema or significant consolidation. Minimal basilar atelectasis versus scarring with elevation of the right hemidiaphragm. Stable cardiomediastinal silhouette. Cervical spinal fusion hardware is noted. Electronically signed: Guillaume Barnes. Transcribed by: [id number], User Resident: Electronically Signed by: GUILLAUME BARNES @ 03/10/2021 03:12 PMNormalThe [facility], MD, Cancer CenterComment on above:Order Comment: Evaluate for CardiomegalyTROPONIN-Ion [id number] I.cardiac [Mass/Vol]0.01 ng/mLNormal 0.00-0.04The [facility], Cancer CenterComment on above:Result Comment: REFERENCE RANGES: 0.00 - 0.04 ng/ml NORMAL 0.05 - 0.50 ng/ml INDETERMINATE > 0.50 ng/ml CONSISTENT WITH AN M.I.Performed By: #### 25604, 39207, 45640, 88857 #### [facility] [address] [facility] [place] [place] [address], USATSH3 WITH REFLEX FT4on [id number] 3RD GENERATION3.82 uIU/mLNormal0.34-5.60The [facility], Cancer CenterComment on above: Performed By: #### 55366, 98131, 28046, 73905 #### [facility] [address] [place] [address], USACoding Summaryon [id number] SummaryCODING DATE: 05/23/2017 [facility] STATUS: Home PAYOR: Medicare APC DESCRIPTION 5024 Level 4 Type A ED Visits ADMIT DX: REASON FOR VISIT DX: R45.851 Suicidal ideations FINAL DX: PRINCIPAL: F63.81 Intermittent explosive disorder SECONDARY: F60.3 Borderline personality disorder F31.9 Bipolar disorder, unspecified F63.9 Impulse disorder, unspecified F79 Unspecified intellectual disabilities E11.9 Type 2 diabetes mellitus without complications I10 Essential (primary) hypertension Z79.899 Other moth exterminator (current) drug therapy PYMT PROC APC STAT DESCRIPTION DOCTOR NAME DATE NOTE:The code number assigned matches the documented diagnosis and / or procedure in the patient's chart. However, the narrative phrase printed from the coding software may appear abbreviated, or result in slightly different terminology. Revised Coded By: Dameon Gorman Revised Date Saved: 02/12/2017 05:24 [facility] HospitalCoding Summaryon [id number] SummaryCODING DATE: 02/12/2017 [facility] STATUS: Home PAYOR: Medicare ADMIT DX: REASON FOR VISIT DX: R45.851 Suicidal ideations FINAL DX: PRINCIPAL: F63.81 Intermittent explosive disorderSECONDARY: F60.3 Borderline personality disorder F31.9 Bipolar disorder, unspecified F63.9 Impulse disorder, unspecified F79 Unspecified intellectual disabilities E11.9 Type 2 diabetes mellitus without complications I10 Essential (primary) hypertension Z79.899 Other nursing home (current) drug therapyPROCEDURES DOCTOR NAME DATE NOTE: The code number assigned matches the documented diagnosis and / or procedure in the patient's chart. However, the narrative phrase printed from the coding software may appear abbreviated, or result in slightly different terminology. Coded By: Dameon Gorman Date Saved: 02/12/2017 05:24 [facility] HospitalCoding Summaryon [id number] SummaryCODING DATE: 02/08/2017 [facility] STATUS: Home PAYOR: Medicare ADMIT DX: REASON FOR VISIT DX: R45.851 Suicidal ideations FINAL DX: PRINCIPAL: F63.81 Intermittent explosive disorderSECONDARY: F60.3 Borderline personality disorder F31.9 Bipolar disorder, [...] terminology. Coded By: Irwin Gorman' Date Saved: 02/08/2017 09:23 amNormal [facility] Metabolic Profon 01-16-2017(cont.)NormalOhiohealth Nelsonville Health CenterComment on above:Result Comment: Average GFR for 30-39 years old: 107 mL/min/1.73sq mChronic Kidney Disease: <60 mL/min/1.73sq mKidney failure: <15 mL/min/1.73sq meGFR calculated using average adult body mass. Additional eGFR calculator available at:http://www.Opax.eGistics/multiple_crcl_2012.htm[address] [address] Performed By: #### CDP, BMP ####[facility] [address] [place] [address] Anion gap18 mmol/LHigh 9-17[facility] CenterComment on above:Performed By: #### CDP, BMP ####[facility] [address] [place] [address] Qmsmkfm0.4 mg/dLNormal8.6-10.4[facility] CenterComment on above:Performed By: #### CDP, BMP ####[facility] [address] [place] [address] Nokluiey968 mmol/GXpaidk17-682YvayyOhiohealth Nelsonville Health Center Comment on above:Performed By: #### CDP, BMP ####[facility] [address] [place] [address] QM853 mmol/MGhgslc76-47QpjfeOhiohealth Nelsonville Health CenterComment on above:Performed By: #### CDP, BMP ####[facility] [address] [place] [address] Wwwytugdxk5.70 mg/dLNormal0.70-1.20[facility] CenterComment on above:Performed By: #### CDP, BMP ####[facility] [address] [place] [address] eGFR (non-black) mL/min/{1.73_m2}Normal>60[facility] CenterComment on above: Performed By: #### BILLIE, BMP ####[facility] [address] [place] [address] Glucose mass kbts261 mg/rPFlks18-76RtyyeMercy Hospital BakersfieldComment on above:Performed By: #### BILLIE, BMP ####[facility] [address] [place] [address] Potassium molar conc3.8 mmol/LNormal 3.7-5.3MMercy Hospital BakersfieldComment on above:Performed By: #### BILLIE, BMP ####[facility] [address] [place] [phone] mmol/HYsfw864-633YepdfOhiohealth Nelsonville Health CenterComment on above:Performed By: #### BILLIE, BMP ####[facility] [address] [place] [address] Urea zbqalcvj77 mg/dLNormal6-20[facility] CenterComment on above: Performed By: #### BILLIE, BMP ####[facility] [address] [place] [address] BUN/CRE RatioNOT REPORTEDNormal9-20[facility] CenterComment on above:Performed By: #### BILLIE, BMP ####[facility] [address] [place] [address] Staging:NOT REPORTEDNormalOhiohealth Nelsonville Health CenterComment on above:Performed By: #### BILLIE, BMP ####[facility] [address] [place] [address] [phone] with Diffon [id number]. Basophil0.00 k/uLNormal0.0-0.2MMercy Hospital Bakersfield Comment on above:Result Comment: [address] [address] Performed By: #### CDP, BMP ####[facility] [address] [address] Abs.Neutrophil (Seg)3.50 k/uLNormal1.8-7.7[facility] CenterComment on above:Performed By: #### CDP, BMP ####[address] [address] Basophils/100 WBC Auto (Bld)0 %NormalOhiohealth Nelsonville Health CenterComment on above: Performed By: #### CDP, BMP ####[address] [address] Rllpmyhkzfu7.20 10*3/uLNormal0.0-0.4[facility] CenterComment on above:Performed By: #### CDP, BMP ####[address] [address] Eosinophils/100 leukocytes3 %NormalOhiohealth Nelsonville Health CenterComment on above:Performed By: #### CDP, BMP ####[address] [address] Erythrocyte distribution width Auto Ratio (RBC)13.8 %Qluadq80.5-15.4[facility] CenterComment on above:Performed By: #### CDP, BMP ####[address] [address] Erythrocytes (RBC)5.13 10*6/uLNormal4.5-5.9[facility] CenterComment on above:Performed By: #### CDP, BMP ####[address] [address] Hematocrit (HCT)43.2 %Mncwnp02-09CrzzyOhiohealth Nelsonville Health CenterComment on above:Performed By: #### BILLIE, BMP ####[facility] [address] [place] [address] Hemoglobin mass conc (Bld)14.6 g/dLNormal 13.5-17.5[facility] Health CenterComment on above:Performed By: #### BILLIE, BMP ####[address] [address] Lymphocytes2.10 10*3/uLNormal1.0-4.8[facility] CenterComment on above:Performed By: #### BILLIE, BMP ####[facility] [address] [address] Lymphocytes/100 %NormalOhiohealth Nelsonville Health CenterComment on above:Performed By: #### BILLIE, BMP ####[facility] [address] [address] EIJ50.4 lyIqrpeq55-61 [facility] CenterComment on above:Performed By: #### BILLIE, BMP ####[facility] [address] [address] MCHC mass conc (RBC)33.8 g/mKNnvbwg90-19CvagrOhiohealth Nelsonville Health CenterComment on above: Performed By: #### BILLIE, BMP ####[facility] [address] [address] PRB84.2 sCMoklfa67-576QeduhOhiohealth Nelsonville Health CenterComment on above:Performed By: #### CDP, BMP ####[address] [address] Plmtihpjm9.80 10*3/uLNormal0.1-1.2MMercy Hospital BakersfieldComment on above:Performed By: #### CDP, BMP ####[facility] [address] [place] [address] Monocytes/100 leukocytes 12 %NormalOhiohealth Nelsonville Health CenterComment on above:Performed By: #### CDP, BMP ####[facility] [address] [place] [address] Neutrophil (Seg)53 %Peoples HospitalComment on above: Performed By: #### CDP, BMP ####[facility] [address]myf[address] [place] [address] Platelet mean volume (PMV)7.6 fLNormal6.0-12.0[facility] CenterComment on above:Performed By: #### CDP, BMP ####[facility] [address] [phone] 10*3/uL Heyjdv150-360VfecpOhiohealth Nelsonville Health CenterComment on above:Performed By: #### CDP, BMP ####[facility] [address] [phone] (Leukocytes)6.6 10*3/uLNormal3.5-11.0[facility] CenterComment on above:Performed By: #### CDP, BMP ####[facility] [address] [phone] Diff PerformedNOT REPORTEDHawthorn Children'S Psychiatric HospitalalOhiohealth Nelsonville Health CenterComment on above:Performed By: #### CDP, BMP ####[facility] [address] [place] [phone] morphology NOT REPORTEDPeoples HospitalComment on above:Performed By: #### CDP, BMP ####[facility] [address] [place] [phone] REPORTEDPeoples Hospital Comment on above:Performed By: #### CDP, BMP ####[facility] [address] [place] [address] WBC MorphologyNOT REPORTEDNoPremier Health Miami Valley Hospital SouthComment on above:Performed By: #### BILLIE, PAOLO ####[facility] [address] [place] [address] Coding Queryon [id number] QueryCan you please document for this patient's visit?Thanks.[Electronically Signed on: 02/17/2017 20:10 EDT] Carolyn Otero[Verified on: 02/17/2017 20:10 EDT] Carolyn Otero[Transcribed on: 01/16/2017 14:23 EDT][facility] Discharge Summaryon [id number] IP Note OR TranscriptionNoPremier Health Miami Valley Hospital South Vital Signs Date TimeVital SignValuePerforming GevppwafnPcyywpht13-40-9581 09:35-0400Body uignpn264.8 cmAvicky Sanchez PA-C Work Phone: [facility] Wpwgbj94-70-8790 09:35-0400Body mass index (BMI) [Ratio]35.85 kg/i3OssbkerVish Sanchez PA-C Work Phone: [facility] Fxgmpu07-42-2365 09:35-0400Body .05 kgVish Sanchez PA-C Work Phone: [facility] Uwldbb85-82-5014 09:35-0400Diastolic blood bnsblagw27 mm[Hg]Vish Sanchez PA-C Work Phone: [facility] Luenac82-08-4964 09:35-0400Heart rate 93 /minVish Sanchez PA-C Work Phone: [facility] Uwhhaq10-02-1529 09:35-0400Systolic blood tpwxqypy438 mm[Hg]Vish Sanchez PA-C Work Phone: [facility] Qdatpi96-56-9044 09:41-0400Body atnjri269 cmSrosalina Steve ENGINE TESTING SUPERVISOR-WALL CRANE OPERATOR Work Phone: [facility] Xcxmmf06-00-1045 09:41-0400Body mass index (BMI) [Ratio]32.36 kg/u2Welazqui Nienberg ENGINE TESTING SUPERVISOR-WALL CRANE OPERATOR Work Phone: [facility] Xjiioo78-11-8666 09:41-0400Body ipsbhd651.25 kgSajackie Nienberg ENGINE TESTING SUPERVISOR-WALL CRANE OPERATOR Work Phone: [facility] Cviizu23-82-0397 09:41-0400Diastolic blood wwnupgzx74 mm[Hg]Cinda Harveyenberg ENGINE TESTING SUPERVISOR-WALL CRANE OPERATOR Work Phone: [facility] Oygxjl66-84-8880 09:41-0400Heart rate 78 /minSamanjose e Nienberg ENGINE TESTING SUPERVISOR-WALL CRANE OPERATOR Work Phone: [facility] Zujhmq50-24-0818 09:41-0400 Respiratory rate20 /minSamanjose e Harveyenberg ENGINE TESTING SUPERVISOR-WALL CRANE OPERATOR Work Phone: [facility] Wsuqsg23-15-3962 09:41-0400Systolic blood lrccfdyw678 mm[Hg]Cinda Steve ENGINE TESTING SUPERVISOR-WALL CRANE OPERATOR Work Phone: [facility] Kmlssl76-01-4222 13:39-0400Body cmMicfany Recinos DO Work Phone: [facility] Wfnbrt96-96-0309 13:39-0400Body mass index (BMI) [Ratio]32.1 kg/a8Lalklio Badik DO Work Phone: [facility] Cyvlpz45-85-9796 13:39-0400Body ryfejkclaxv05.7 [degF]Rand Recinos DO Work Phone: [facility] Rtfnmx89-84-2566 13:39-0400Body zmghiq23.43 kgMicfany Recinos DO Work Phone: [facility] Kgjuph92-00-2620 13:39-0400Diastolic blood mm[Hg]Rand Recinos DO Work Phone: [facility] Onadct46-42-7973 13:39-0400Heart rate 97 /minMicfany Recinos DO Work Phone: [facility] Fhpkyl50-36-3296 13:39-3121GyN3% (BldA) [Mass fraction]95 %Rand Recinos DO Work Phone: [facility] Fmhwar23-66-4667 13:39-0400Systolic blood zfhgdhfy757 mm[Hg]Rand Recinos DO Work Phone: [facility] Nqxaxr79-34-3335 13:00-0400Body .3 cmMegan Verhoff PA-C Work Phone: [facility] Djotyf02-36-4523 13:00-0400Body mass index (BMI) [Ratio]29.99 kg/d7Nhomo Verhoff PA-C Work Phone: [facility] Uhhjbc96-32-2840 13:00-0400Body .52 kgMegan Verhoff PA-C Work Phone: [facility] Uobxzr37-49-3514 13:00-0400Diastolic blood ehichley02 mm[Hg]Myla Verhoff PA-C Work Phone: [facility] Khowtv62-15-9523 13:00-0400Heart rate 86 /minMegan Verhoff PA-C Work Phone: [facility] Qzpass14-81-8901 13:00-0400 Respiratory rate16 /minMegan Verhoff PA-C Work Phone: [facility] Hjdjms05-41-7074 13:00-4844BlF8% (BldA) [Mass fraction]97 %Myla Verhoff PA-C Work Phone: [facility] Tunesm33-73-9719 13:00-0400Systolic blood vbbjlyqy393 mm[Hg]Myla Jag PA-C Work Phone: [facility] Ugahhz30-69-1024 09:41-0400Body hrjakx981.3 cmAntgretchen Sanchez PA-C Work Phone: [facility] Savbmw48-88-3721 09:41-0400Body mass index (BMI) [Ratio]30.96 kg/j1DyxacxfVish Sanchez PA-C Work Phone: [facility] Nrvbqt26-27-5518 09:41-0400Body qndpuw992.7 kgVish Sanchez PA-C Work Phone: [facility] Jznkfo02-98-9204 09:41-0400Diastolic blood gqwcnjox31 mm[Hg]Vish Sanchez PA-C Work Phone: [facility] Ihbcjk24-52-2805 09:41-0400Heart rate 92 /minVish Sanchez PA-C Work Phone: [facility] Yzjkhr12-45-8188 09:41-0400Systolic blood mm[Hg]Vish Sanchez PA-C Work Phone: [facility] Fffefl63-48-6115 10:56-0400Body qpbofx563.3 cmIkerlucie Keller ENGINE TESTING SUPERVISOR-WALL CRANE OPERATOR Work Phone: [facility] Yackar95-32-1779 10:56-0400Body mass index (BMI) [Ratio]30.96 kg/j8Szzvjq Cutheidi ENGINE TESTING SUPERVISOR-WALL CRANE OPERATOR Work Phone: [facility] Zuukpr79-35-1119 10:56-0400Body aalreiwmfhr06.01 [degF]Lissett Du ENGINE TESTING SUPERVISOR-WALL CRANE OPERATOR Work Phone: [facility] Bnwnwo04-40-8485 10:56-0400Body .7 kgLissett Keller ENGINE TESTING SUPERVISOR-WALL CRANE OPERATOR Work Phone: [facility] Tvshkr87-18-5402 10:56-0400Diastolic blood hrxzazxp19 mm[Hg]Lissett Keller ENGINE TESTING SUPERVISOR-WALL CRANE OPERATOR Work Phone: [facility] Gdflzt80-14-7974 10:56-0400Heart rate 81 /minLissett Keller ENGINE TESTING SUPERVISOR-WALL CRANE OPERATOR Work Phone: [facility] Xbobyq74-44-2738 10:56-7897CsI4% (BldA) [Mass fraction]98 %Lissett Keller ENGINE TESTING SUPERVISOR-WALL CRANE OPERATOR Work Phone: [facility] Nrieon84-81-5358 10:56-0400Systolic blood lkphellx754 mm[Hg]Lissett Keller APRN-WALL CRANE OPERATOR Work Phone: [facility] Sqmawa27-37-9014 12:36-0400Body fsyife439.9 cmMegan Verhoff PA-C Work Phone: [facility] Rqxqxh47-77-4361 12:36-0400Body mass index (BMI) [Ratio]29.97 kg/m8Qpbjb Verhoff PA-C Work Phone: [facility] Blfrbk90-37-9134 12:36-0400Body iteziu188.25 kgMegan Verhoff PA-C Work Phone: [facility] Zmvplz89-97-7476 12:36-0400Diastolic blood hzafbvht60 mm[Hg]Myla Verhoff PA-C Work Phone: [facility] Pzxzqn76-31-1130 12:36-0400Heart rate 100 /minMegan Verhoff PA-C Work Phone: [facility] Fvxrhq22-55-3028 12:36-0400 Respiratory rate20 /minMegan Verhoff PA-C Work Phone: [facility] Gvggrh57-86-4031 12:36-0400Systolic blood vzkazjek433 mm[Hg]Myla Verhoff PA-C Work Phone: [facility] Mzkqwd69-72-5540 12:32-0400Body uhyken276.9 cmMatthew Nienberg PA Work Phone: [facility] Dayton[facility]aja04-03-2025 12:32-0400Body mass index (BMI) [Ratio]30.24 kg/u6Pdmoven Nienberg PA Work Phone: [facility] Kjdnkd35-83-4526 12:32-0400Body xljuoc799.15 kgMatthew Nienberg PA Work Phone: [facility] Xxgujl20-48-1911 12:32-0400Diastolic blood iivsqlka04 mm[Hg]Guillaume Evi PA Work Phone: [facility] Xrkbmc25-25-1468 12:32-0400Heart rate 88 /minMatthew Nienberg PA Work Phone: [facility] Ikjnhr39-91-8726 12:32-0400 Respiratory rate18 /minMatthew Nienberg PA Work Phone: [facility] Csgbfq13-29-2527 12:32-6823XoD3% (BldA) [Mass fraction]98 %Guillaume Harveymartín PA Work Phone: [facility] Groemh44-90-1020 12:32-0400Systolic blood ltnfoxur873 mm[Hg]Guillaume Harveymartín PA Work Phone: [facility] Bnstzp84-64-4571 11:33-0400Body gaawlc701.9 cmMichaesimon Castañedaik DO Work Phone: [facility] Wxgbxq98-62-6279 11:33-0400Body mass index (BMI) [Ratio]30.65 kg/k0Pcfilbi Badik DO Work Phone: [facility]03-26-2025 11:33-0400Body csldhopiuhg72.59 [degF]Rand Recinos DO Work Phone: [facility] Mixhqo39-92-1327 11:33-0400Body .51 kgMicfany Castañedaik DO Work Phone: [facility]03-26-2025 11:33-0400Diastolic blood mm[Hg]Rand Recinos DO Work Phone: [facility]03-26-2025 11:33-0400Heart rate 103 /minMicfany Recinos DO Work Phone: [facility]03-26-2025 11:33-7399ZsL3% (BldA) [Mass fraction]94 %Rand Recinos DO Work Phone: [facility]03-26-2025 11:33-0400Systolic blood visrodqq465 mm[Hg]Rand Recinos DO Work Phone: [facility]03-14-2025 08:23-0400Body ycaoho219.9 cmMicfany Recinos DO Work Phone: [facility]03-14-2025 08:23-0400Body mass index (BMI) [Ratio]30.86 kg/c4Teewslpfany Recinos DO Work Phone: [facility]03-14-2025 08:23-0400Body pysrhsiveqk29.01 [degF]Rand Recinos DO Work Phone: [facility]03-14-2025 08:23-0400Body nljmoi810.24 kgMicfany Recinos DO Work Phone: [facility]03-14-2025 08:23-0400Diastolic blood ysjvjjai49 mm[Hg]Rand Recinos DO Work Phone: [facility]03-14-2025 08:23-0400Heart rate 102 /minMicfany Recinos DO Work Phone: [facility]03-14-2025 08:23-6606UcZ1% (BldA) [Mass fraction]97 %Rand Recinos DO Work Phone: [facility]03-14-2025 08:23-0400Systolic blood pcuzusgf401 mm[Hg]Rand Recinos DO Work Phone: [facility] 13:23-0500Diastolic blood gbfftjiq05 mm[Hg]Guillaume Steve PA Work Phone: [facility] Blaunl00-94-8049 13:23-0500Heart rate 108 /minMatthew Nienberg PA Work Phone: [facility]-20[facility]2025 13:23-0500 Respiratory rate16 /minMatthew Nienberg PA Work Phone: [facility]-20-2025 13:23-4949FrW2% (BldA) [Mass fraction]99 %Guillaume Steve PA Work Phone: [facility] Oteedy37-99-2273 13:23-0500Systolic blood cxcytwkv884 mm[Hg]Guillaume Steve PA Work Phone: [facility] Zefgep47-39-5344 12:34-0500Body tiolad227.9 cmMegan Verhoff PA-C Work Phone: [facility]-12-2025 12:34-0500Body mass index (BMI) [Ratio]31.33 kg/q3Ylxdi Verhoff PA-C Work Phone: [facility] Wxkzrd80-01-6436 12:34-0500Body .78 kgMegan Verhoff PA-C Work Phone: [facility] Ndoubp57-92-8525 12:34-0500Diastolic blood nafpjxhv46 mm[Hg]Myla Verhoff PA-C Work Phone: [facility]-12-2025 12:34-0500Heart rate 85 /minMegan Verhoff PA-C Work Phone: [facility] Prywhw04-65-1036 12:34-0500 Respiratory rate18 /minMegan Verhoff PA-C Work Phone: [facility]02-12-2025 12:34-4683ZoL6% (BldA) [Mass fraction]100 %Myla Rm PA-C Work Phone: [facility]02-12-2025 12:34-0500Systolic blood llumbmhk830 mm[Hg]Myla Rm PA-C Work Phone: [facility]01-09-2025 13:03-0500Body ujijam719.[address]01-09-2025 13:03-0500Body mass index (BMI) [Ratio]32.71 kg/m2Pmh [address] [place], [place] 1732401-09-2025 13:03-0500Body yetpbr175.[address] [place], [place] 1732411-19-2024 14:46-0500Diastolic blood aidqulbt73 mm[Hg]Cinda Candicemartín ENGINE TESTING SUPERVISOR-WALL CRANE OPERATOR Work Phone: [facility]11-19-2024 14:46-0500Heart rate 100 /minSamanchristianoa Nienberg ENGINE TESTING SUPERVISOR-WALL CRANE OPERATOR Work Phone: [facility]11-19-2024 14:46-0500 Respiratory rate20 /minSamanchristianoa Nienberg ENGINE TESTING SUPERVISOR-WALL CRANE OPERATOR Work Phone: [facility]11-19-2024 14:46-0500Systolic blood mm[Hg]Cinda Nienberg ENGINE TESTING SUPERVISOR-WALL CRANE OPERATOR Work Phone: [facility]10-21-2024 14:01-0400Body rzedpy523.8 cmMukendall Underwood MD Work Phone: [facility]10-21-2024 14:01-0400Body mass index (BMI) [Ratio]33.2 kg/o7AjzgsylJustin Underwood MD Work Phone: [facility]10-21-2024 14:01-0400Body hhddayhbclr06.71 [degF]Justin Underwood MD Work Phone: [facility]10-21-2024 14:01-0400Body rfvryl974.96 kgJustin Underwood MD Work Phone: [facility]10-21-2024 14:-0400Diastolic blood udqbjyhk55 mm[Hg]Justin Underwood MD Work Phone: [facility]10-21-2024 14:01-0400Heart rate 78 /minJustin Underwood MD Work Phone: [facility]10-21-2024 14:-8174QkK0% (BldA) [Mass fraction]98 %Justin Underwood MD Work Phone: [facility]10-21-2024 14:01-0400Systolic blood fnylhfda637 mm[Hg]Justin Underwood MD Work Phone: [facility]10-10-2024 14:20-0400Diastolic blood grboymos50 mm[Hg]Guillaume BARRERA Work Phone: [facility]10-10-2024 14:20-0400Heart rate 84 /minMatthew Evi PA Work Phone: [facility]10-10-2024 14:20-0400 Respiratory rate16 /minMatthew Evi PA Work Phone: [facility]10-10-2024 14:20-2209KfU5% (BldA) [Mass fraction]97 %Guillaume BARRERA Work Phone: [facility]10-10-2024 14:20-0400Systolic blood bnnawbbj900 mm[Hg]Guillaume BARRERA Work Phone: [facility]09-17-2024 13:48-0400Body ezruwe621.[address]09-17-2024 13:48-0400Body mass index (BMI) [Ratio]32.71 kg/m2Pmh [address] [place], [place] 1732409-17-2024 13:48-0400Body edcxuu812.[address] [place], [place] 1732408-22-2024 13:46-0400Body ayidrp336.8 cmMatthew Nienberg PA Work Phone: [facility]08-22-2024 13:46-0400Body mass index (BMI) [Ratio]32.71 kg/w8Cesdsag Nienberg PA Work Phone: [facility]08-22-2024 13:46-0400Body pfxuuj817.42 kgMatthew Nienberg PA Work Phone: [facility]08-22-2024 13:46-0400Diastolic blood kkgihhnq22 mm[Hg]Guillaume Steve PA Work Phone: [facility]08-22-2024 13:46-0400Heart rate 104 /minMatthew Nienberg PA Work Phone: [facility]08-22-2024 13:46-0400 Respiratory rate18 /minMatthew Nienberg PA Work Phone: [facility]08-22-2024 13:46-1770TuR5% (BldA) [Mass fraction]100 %Guillaume Steve PA Work Phone: [facility]08-22-2024 13:46-0400Systolic blood ionedakr160 mm[Hg]Guillaume Steve PA Work Phone: [facility]08-19-2024 14:55-0400Body jsiuyx042.8 cmJustin Underwood MD Work Phone: [facility]08-19-2024 14:55-0400Body mass index (BMI) [Ratio]32.83 kg/u3RnizguzJustin Underwood MD Work Phone: [facility]08-19-2024 14:55-0400Body pquxhkrmpqw26.59 [degF]Justin Underwood MD Work Phone: [facility]08-19-2024 14:55-0400Body btkypa777.78 kgJustin Underwood MD Work Phone: [facility] [employer] Ufadwf59-12-3542 14:55-0400Diastolic blood exmwthir85 mm[Hg]Justin Underwood MD Work Phone: [facility]08-19-2024 14:55-0400Heart rate 86 /minJustin Underwood MD Work Phone: [facility]08-19-2024 14:55-1520ThQ8% (BldA) [Mass fraction]99 %Justin Underwood MD Work Phone: [facility]08-19-2024 14:55-0400Systolic blood zvupbqst771 mm[Hg]Justin Underwood MD Work Phone: [facility]06-13-2024 11:39-0400Body ubwyfx827.8 cmMatthew Nienberg PA Work Phone: [facility] [employer] Xlmjkf56-39-5606 11:39-0400Body mass index (BMI) [Ratio]33.43 kg/p4Kxrieyp Nienberg PA Work Phone: [facility] Mnovmf49-59-1838 11:39-0400Body cfqtsi822.69 kgMatthew Nienberg PA Work Phone: [facility] Qesmem05-89-5465 11:39-0400Diastolic blood mm[Hg]Guillaume Steve PA Work Phone: [facility] Jjxqur63-69-9530 11:39-0400Heart rate 105 /minMatthew Nienberg PA Work Phone: [facility] Cctqxj84-37-7822 11:39-0400 Respiratory rate14 /minMatthew Nienberg PA Work Phone: [facility] Iosgos30-88-3144 11:39-6285JlC2% (BldA) [Mass fraction]97 %Guillaume Harveyenberg PA Work Phone: [facility] Ofxitu82-89-8816 11:39-0400Systolic blood bigohrbu249 mm[Hg]Guillaume Nienberg PA Work Phone: [facility] Ijafsw83-88-6903 14:37-0400Diastolic blood vclvyago84 mm[Hg]Guillaume Nienberg PA Work Phone: [facility] Awpngz79-64-3248 14:37-0400Heart rate 107 /minMatthew Nienberg PA Work Phone: [facility] Wolcms00-42-9229 14:37-0400 Respiratory rate18 /minMatthew Nienberg PA Work Phone: [facility] Oxglwa97-13-7436 14:37-5374WoT1% (BldA) [Mass fraction]99 %Guillaume Nienberg PA Work Phone: [facility] Qzqbvu20-48-8874 14:37-0400Systolic blood pytyjdkq692 mm[Hg]Guillaume Nienberg PA Work Phone: [facility] Wscbmn71-11-3654 13:33-0400Diastolic blood mm[Hg]Guillaume Nienberg PA Work Phone: [facility] Pafpqm60-28-8382 13:33-0400Heart rate 100 /minMatthew Nienberg PA Work Phone: [facility] Nkkrtk07-37-7222 13:33-0400 Respiratory rate20 /minMatthew Nienberg PA Work Phone: [facility] Bcrcsj60-25-3162 13:33-0400Systolic blood cyoeurgs753 mm[Hg]Guillaume Nienberg PA Work Phone: [facility] Cvgyln91-58-0736 11:43-0500Body gmagyk191.8 cmMukendall Underwood MD Work Phone: [facility] Nhlbxb88-42-1915 11:43-0500Body mass index (BMI) [Ratio]33.86 kg/t4GnaajzvJustin Underwood MD Work Phone: [facility]03-06-2024 11:43-0500Body aejwkhgntrx38.1 [degF]Justin Underwood MD Work Phone: [facility]03-06-2024 11:43-0500Body .05 kgJustin Underwood MD Work Phone: [facility]03-06-2024 11:43-0500Diastolic blood entzxirh83 mm[Hg]Justin Underwood MD Work Phone: [facility]03-06-2024 11:43-0500Heart rate 108 /minJustin Underwood MD Work Phone: [facility]03-06-2024 11:43-8373JsE9% (BldA) [Mass fraction]97 %Justin Underwood MD Work Phone: [facility]03-06-2024 11:43-0500Systolic blood mm[Hg]Justin Underwood MD Work Phone: [facility]02-13-2024 13:46-0500Diastolic blood dvdltmtu45 mm[Hg]Guillaume BARRERA Work Phone: [facility]02-13-2024 13:46-0500Heart rate 100 /minMatthew Evi PA Work Phone: [facility]02-13-2024 13:46-0500 Respiratory rate20 /minMatthew Nienberg PA Work Phone: [facility]02-13-2024 13:46-0500Systolic blood imjtcjnz170 mm[Hg]Guillaume BARRERA Work Phone: [facility]02-08-2024 13:51-0500Body gexfpw719.8 cmSteven Cain DPM Work Phone: [facility] HospitalGvhiwjzntx55-10-4659 13:51-0500Body mass index (BMI) [Ratio]33 kg/v8Ngxbau Rusher DPM Work Phone: [facility] Gfgylvvlcy16-80-0159 13:51-0500Body eaejse131.33 kgStdanilo Cain DPM Work Phone: [facility] Encounters Encounter DateEncounter TypeCare ProviderFacilityStart: 05-19-2025 End: 18-42-6439JuieqqNgorepc M Asif MD Work Phone: [facility] Physicians Family MedicineComment on above: Parkinson's disease ([facility]) (Primary Dx); Type 2 diabetes mellitus without complication, without long-term current use of insulin ([facility]); Acute bronchitis, unspecified organism; Hypertriglyceridemia; Disc displacement, lumbarStart: 05-12-2025 End: 10-15-2787icfmulrxjwLQTGFIJSpecialty [facility] Start: 05-12-2025 End: 93-32-6379Vbsqcp outpatient visit [address] [facility] centerAnthAlleghany Health LAMIN Work Phone: [facility] Neu[facility] Frepiedmont macon hospitaltComment on above:Migraine without aura and with status migrainosus, not intractable (Primary Dx); Intellectual functioning disability; Bipolar I disorder ([facility])Start: 05-06-2025 End: 68-10-0887ntumepibonRFUNFHAG M NIENBERGMedina Hospitaltart: 04-27-2025 End: 38-61-5524TyqbnaVypty Ponce [facility] Neurology, A Department of [facility] HospitalComment on above:Migraine without aura and with status migrainosus, not intractable (Primary Dx)Start: 04-26-2025 End: 42-30-5504Igzgtmnoa encounterMeghana Carrera [facility] Physicians Family MedicineComment on above:Er Follow-upStart: 04-25-2025 End: 74-81-1391Rghyztpvt department patient visitJUSTIN MedinaMission Community Hospitaltart: 20-68-4533gekupelwhkKMAAJ N [facility] Start: 04-15-2025 End: 13-34-7320DzjodjNohdmi Judy [facility] ClinicStart: 04-06-2025 End: 28-34-4392Zesatw outpatient visit 25 minutesSajackie Steve ENGINE TESTING SUPERVISOR-WALL CRANE OPERATOR Work Phone: [facility] - Pain Management ClinicComment on above:Cervical post-laminectomy syndrome (Primary Dx)Start: 04-06-2025 End: 41-75-7656krdpeefzzoSTALVXGG M NIENBERGJ.W. Ruby [facility] Hospital HospitalStart: 03-26-2025 End: 22-64-1343Yodwipoca encounterTina [facility] Neu[facility], A Department of [facility] CenterComment on above:Medication ProblemStart: 03-25-2025 End: 19-43-7551Klfcivm encounter procedureRand Recinos DO Work Phone: [facility] Physicians Family MedicineComment on above: Medicare annual wellness visit, subsequent (Primary Dx); Parkinson's disease ([facility]); Schizoaffective disorder, bipolar type ([facility]); Seizure disorder ([facility]); Obesity, morbid ([facility]); Type 2 diabetes mellitus without complication, without long-term current use of insulin ([facility]); Hyperlipidemia, unspecified hyperlipidemia typeStart: 03-25-2025 End: 93-95-8170tkgkuqcwtiWPIUKGAShriners Hospital for Children Ambulatory PPGStart: 23-11-9626Xjybhzzyf for general adult medical examination without abnormal findingsFranciscan Health Hammond Ambulatory PPGStart: 03-24-2025 End: 78-71-8376wugdobcmjsWABRL N VERHOFFJ.W. Ruby Memorial Hospital HospitalStart: 03-24-2025 End: 88-18-9751Rejouq outpatient visit 15 minutesMyla Rm PA-C Work Phone: [facility] - Pain Management ClinicComment on above:Lumbar post-laminectomy syndrome (Primary Dx); Trochanteric bursitis of right hipStart: 79-03-6187lepiqiiswbNGMJA N VERHOFF [facility] Hospitaltart: 03-17-2025 End: 86-01-7703Yhcmor-up encounterVish Sanchez PA-C Work Phone: [facility] Neu[facility] FremontComment on above:MR brain with and without contrastStart: 03-04-2025 End: 36-85-3133NnsmnpVjkhrzt M Asif MD Work Phone: [facility] Physicians Family MedicineComment on above: Type 2 diabetes mellitus treated without insulin ([facility]) (Primary Dx); Parkinson's disease ([facility])Start: 03-01-2025 End: 81-06-4966ivzcmnzdpoDGIJQYL C [facility] HospitalStart: 02-16-2025 End: 85-44-0022Bnuoin Tammy BRINK Work Phone: [facility] Pulmonary/Sleep MedicineComment on above:AMRK (obstructive sleep apnea) (Primary Dx)Type 2 diabetes mellitus treated without insulin ([facility]) (Primary Dx); Parkinson's disease ([facility]); Disc displacement, lumbarRIZATRIPTAN COVERAGEStart: 02-15-2025 End: 28-51-7725Jippzktlj encounterMerjuan m Wilburn Physicians Family MedicineComment on above:Medication ConcernStart: 02-11-2025 End: 65-52-3613KbciteTlgzroa M Asif MD Work Phone: [facility] Physicians Family MedicineComment on above: Type 2 diabetes mellitus treated without insulin ([facility]) (Primary Dx); Parkinson's disease ([facility]); Allergic conjunctivitis and rhinitis, unspecified lateralityStart: 02-09-2025 End: 11-18-8264qusjnrfdoxXUXBJQG C [facility] Ambulatory PPG Start: 02-09-2025 End: 84-13-8144Yoouua outpatient visit 25 minutesVish Sanchez PA-C Work Phone: [facility] Neurology FremontComment on above:Migraine without aura and with status migrainosus, not intractable (Primary Dx); Visual changes; AnxietyStart: 02-08-2025 End: 84-00-7246mrgbfdmegwCXPEGP L WINANSNot AvailableStart: 02-08-2025 End: 14-51-7196Cjqiuz outpatient visit 15 minutesVicki BARRERA Work Phone: [facility] DERMComment on above:Pityrosporum folliculitis (Primary Dx)Start: 02-01-2025 End: 20-86-3124Ldwjsyvls encounterWelang AGUIRREroMedica Physicians Pulmonary/Sleep MedicineStart: 01-29-2025 End: 21-41-7931Eogofi outpatient new 45 minutesKhadar Cordero MD Work Phone: [facility] Phys[facility] Pulmonary/Sleep MedicineComment on above:MARK (obstructive sleep apnea) (Primary Dx); Chronic fatigue; Snoring; BMI 30.0-30.9,adultStart: 01-29-2025 End: 67-64-9624dxqwsmidxiSKJDCGACMC Healthcare System Start: 01-26-2025 End: 79-14-9373GbqphaXbzmm Kurtz [facility]Pro[facility] Physicians Family MedicineStart: 01-25-2025 End: 34-08-0089Fyvhzojod encounterMeghana Carrera [facility]IAProMedica Physicians Family MedicineComment on above:Er Follow-upStart: 01-24-2025 End: 30-62-5925Qonthwywo department patient visitMUKENDALL Beavers [facility] HospitalStart: 01-22-2025 End: 88-58-0313Tqgqcssqb department patient visitMUKENDALL Beavers [facility] HospitalStart: 01-20-2025 End: 00-86-4440Nhwbqd outpatient visit 25 minutesMyla Rm PA-C Work Phone: [facility] - Pain Management ClinicComment on above:Lumbosacral spondylosis without myelopathy (Primary Dx); Disorder of sacrum; Trochanteric bursitis of right hipStart: 01-20-2025 End: 53-62-0024xvjmtpxvshQDZPD N VERHOFFProBaylor Scott and White the Heart Hospital – Planotart: 01-13-2025 End: 88-44-4266Shvdbk Bharat BRINK Work Phone: [facility] Family MedicineComment on above: Disc displacement, lumbarStart: 01-01-2025 End: 57-47-4464sgutqnnkbuCEPWMartins Ferry Hospitaltart: 12-28-2024 End: 98-99-8747BnjhkaHfyvb Kurtz CMAProMedica Physicians Family MedicineComment on above:Type 2 diabetes mellitus without complication, without long-term current use of insulin ([facility])Start: 12-16-2024 End: 64-68-8204Rlzhoirxb encounterTegan Galarza CMAKettering Health Daytonmushtaq Neurology, A Department of [facility] Medical CenterComment on above:Medication Formulary ExceptionStart: 12-09-2024 End: 58-16-4460sowswqfbysBXPRAOB Timmy [facility] Ambulatory PPG Start: 12-03-2024 End: 30-34-7441Udcnyn outpatient visit 25 minutesMukendall Underwood MD Work Phone: [facility] Physicians Family MedicineComment on above: Migraine without aura and with status migrainosus, not intractable (Primary Dx); Type 2 diabetes mellitus treated without insulin ([facility])Start: 12-03-2024 End: 06-12-3394ulhnromriaSYZSTKREdward P. [facility] Ambulatory PPGStart: 11-27-2024 End: 43-77-7870eqolycocopRDEXYREMercy Health Springfield Regional Medical Centertart: 11-26-2024 End: 36-19-6665Ftwdoovxj encounterBernie Wilburn Physicians Family MedicineComment on above:ResultsStart: 11-24-2024 End: 63-06-0833HnjkjaYprfc Kurtz CMAProMedica Physicians Family MedicineComment on above:Disc displacement, lumbarStart: 11-23-2024 End: 30-51-7117Maekysuww encounterMeghana Carrera CMAProMedica Physicians Family MedicineComment on above:Er Follow-upNew PatientStart: 2024 End: 19-99-6885Wwwxogqtb department patient visitColumbia VA Health Care HospitalStart: 11-02-2024 End: 87-72-7320Mmlscagrc encounterDbera Rosales CMAProBucyrus Community Hospitalca Physicians Family MedicineStart: 10-28-2024 End: 82-82-9076EiekkbRnqoa Kurtz [facility] Physicians Family MedicineComment on above:Disc displacement, lumbar; HypertriglyceridemiaStart: 10-22-2024 End: 58-14-7069Jfsvjf outpatient visit 15 minutesTnmaurilio Steve PA Work Phone: [facility] - Pain Management ClinicComment on above:Postlaminectomy syndrome of lumbar region (Primary Dx) Start: 10-22-2024 End: 85-20-5543rfzwcqywemHZPACLGKaiser Foundation Hospitaltart: 10-14-2024 End: 11-64-7637Uxabaa outpatient visit 15 minutesMichael D Badik DO Work Phone: [facility] Physicians Family MedicineComment on above: Acute bronchitis, unspecified organism (Primary Dx); Acute non-recurrent frontal sinusitisStart: 10-14-2024 End: 82-28-8594zucaeiapcwVFAKXAMFranciscan Health Hammond Ambulatory PPGStart: 10-07-2024 End: 22-31-1600spwscxugpfQVKCUMarion Hospital CenterStart: 10-06-2024 End: 92-10-8250rtwdptwdsrFdxtrroSt. Anne Hospital CenterStart: 10-06-2024 End: 25-22-1746Ytarncaro encounterDebra Rosales CMAKettering Health Daytonca Physicians Family MedicineStart: 10-02-2024 End: 07-21-9507Ejnhyq outpatient visit 15 minutesMichael D Badik DO Work Phone: [facility] Physicians Family MedicineComment on above: Trapezius muscle strain, left, initial encounter (Primary Dx)Start: 10-02-2024 End: 88-64-3461Gcnfkm Seymour Underwood MD Work Phone: [facility] Physicians Family MedicineComment on above: Gastroesophageal reflux disease with esophagitis without hemorrhage (Primary Dx) Start: 09-29-2024 End: 74-46-3064Fymaidupt encounterDebra Rosales CMADayton Osteopathic Hospital Physicians Family MedicineStart: 09-28-2024 End: 32-83-7377RviwnsZxlht Kurtz [facility] Physicians Family MedicineComment on above:Disc displacement, lumbarStart: 72-37-9636qrteqdxtswBTSNI N VERHOFF [facility] Centertart: 09-10-2024 End: 69-71-6538Eekact outpatient visit 15 minutesMyla Rm PA-C Work Phone: [facility] - Pain Management ClinicComment on above:Lumbar post-laminectomy syndrome (Primary Dx)Start: 09-10-2024 End: 12-49-9726bxpvnoaohwNSTRGNR S EVIMedina Hospitaltart: 09-09-2024 End: 39-34-0186Vqzcbensn encounterOfelia Barrientos [facility] - [facility] ClinicStart: 09-09-2024 End: 09-25-7158cklcipfnkvKBTHMWO S DORSEYMedina Hospitaltart: 09-07-2024 End: 79-81-0453JvupmfAmqspbq M Asif MD Work Phone: [facility] Physicians Family MedicineComment on above: Parkinson's disease ([facility]) (Primary Dx); Type 2 diabetes mellitus treated without insulin ([facility]); Chronic GERD; Seasonal allergiesStart: 18-10-3419dtjndksfejAOZYI N [facility] HOSPITALARMANIJ.[facility] HospitalStart: 09-02-2024 End: 25-76-2794Wdyfzi outpatient visit 25 minutesMyla MAYSC Work Phone: [facility] - Pain Management ClinicComment on above:Left shoulder pain, unspecified chronicityStart: 09-02-2024 End: 82-30-8376pbnouirzudPXLNC [facility] Hospitaltart: 08-18-2024 End: 76-13-8752Bogfstbhfy and management of inpatientVERN [facility] HospitalStart: 08-14-2024 End: 45-58-9226Jrgmrqiyib and management of inpatientWILLIAM Genevieve PRITCHETTProMedica Hemet Global Medical Centertart: 08-14-2024 End: 81-57-8763Nbooaxvhvo and management of inpatientWILLIAM E NICOLEProBucyrus Community Hospitalca [place] HospitalStart: 07-30-2024 End: 19-01-9096jaqrvqwchtTBWPZ M NOLANOLLIEMedina Hospitaltart: 35-20-1360Wjbruhafc for other preprocedural examinationSARH Our Lady of the Way Hospitaltart: 07-30-2024 End: 84-82-7550Nhqlngc encounter procedurePm Pre-Admission Testing [address] [place] [address] - Pre AdmitComment on above:Preop examination (Primary Dx); Hypertension, unspecified type; Type 2 diabetes mellitus without complication, without long-term current use of insulin ([facility])Start: 07-30-2024 End: 37-63-6793Qlpvbughdduvi examination done[address] Streettart: 07-28-2024 End: 87-18-0116QbsjqnVbpkwft M Asif MD Work Phone: [facility] Physicians Family MedicineComment on above: Parkinson's disease ([facility]) (Primary Dx); Type 2 diabetes mellitus treated without insulin ([facility]); Disc displacement, lumbarStart: 07-24-2024 End: 24-75-6982GknvmyHvybmqvz Hurley CNOakBend Medical Center Physicians Family Medicine Comment on above:SCS Battery RevisionStart: 07-07-2024 End: 56-82-2150msojeutzpuPKWQQJOW M NIENBERGJ.W. Ruby Memorial Hospital HospitalStart: 06-30-2024 End: 91-19-3619GcgrubGardenia Underwood MD Work Phone: [facility]icians Family MedicineStart: 06-29-2024 End: 24-86-9558NqrzcrYyxhxqh M Asif MD Work Phone: [place] Physicians Family MedicineComment on above: Parkinson's disease ([facility]) (Primary Dx); Type 2 diabetes mellitus treated without insulin ([facility]); Type 2 diabetes mellitus without complication, without long-term current use of insulin ([facility])Start: 06-23-2024 End: 48-31-9423WwnbojNcyjn Kurtz [facility] Physicians Family MedicineComment on above:Disc displacement, lumbarStart: 06-12-2024 End: 34-10-1572RsgugcNjkuopzq Hurley [facility] [facility] Comment on above:HypertriglyceridemiaStart: 06-09-2024 End: 19-06-2976Fhmiih outpatient visit 15 Barry Steve ENGINE TESTING SUPERVISOR-WALL CRANE OPERATOR Work Phone: [facility] - Pain Management ClinicComment on above:Lumbar post-laminectomy syndrome (Primary Dx)Start: 06-09-2024 End: 30-39-5540jshtqcuwhhLLALVWSU M NIENBERGMedina Hospitaltart: 06-04-2024 End: 13-16-3560Nxtxyzwcl encounterDebra Rosales [facility] MedicineStart: 06-02-2024 End: 96-24-5551Zedbsqtyj encounterJ.[facility]. [facility] ClinicStart: 05-11-2024 End: 06-18-7749Qbsbwh outpatient visit 25 minutesJustin Underwood MD Work Phone: [facility] Family MedicineComment on above: Disc displacement, lumbar (Primary Dx); Type 2 diabetes mellitus without complication, without long-term current use of insulin ([facility]); Obesity, morbid ([facility]); Hypercholesteremia; Immunization counseling; Encounter for immunizationStart: 04-30-2024 End: 73-49-9978Dmlweu outpatient visit 15 Mar BARRERA Work Phone: [facility] - Pain Management ClinicComment on above:Postlaminectomy syndrome of lumbar region (Primary Dx) Start: 04-28-2024 End: 57-85-2519RoitfkLieogm [facility] Comment on above:Disc displacement, lumbarStart: 04-14-2024 End: 89-56-8191HxjytbYowvpfg [facility] MedicineComment on above:Disc displacement, lumbarStart: 04-07-2024 End: 83-11-9437DhgmevCcjmntq Toth [facility] MedicineStart: 04-02-2024 End: 55-69-2450Zkvcow Seymour Underwood MD Work Phone: [facility] Family MedicineComment on above: Dysuria (Primary Dx)Start: 03-27-2024 End: 27-07-6524Emvsrtavo encounterKrzysztofevi Cainjared [facility] Family MedicineComment on above:Er Follow-upStart: 03-19-2024 End: 45-95-0144HbhbazZbmf [facility] - Pain Management ClinicComment on above:Prophylactic antibiotic (Primary Dx)Start: 03-16-2024 End: 36-23-1015igpzsqsavpWPVIJPT [facility] Centertart: 03-12-2024 End: 62-99-3594Gaxjli outpatient visit 25 Mar BARRERA Work Phone: [facility] - Pain Management ClinicComment on above:Postlaminectomy syndrome of lumbar region (Primary Dx) Start: 03-09-2024 End: 13-34-2283Oukeinm encounter Kyra Underwood MD Work Phone: [facility] Family MedicineComment on above: MARK (obstructive sleep apnea) (Primary Dx); Primary cough headache; Episodic tension-type headache, not intractable; Tobacco useStart: 02-27-2024 End: 27-24-1967MdkdvpDrdgka [facility] Comment on above:Disc displacement, lumbarStart: 01-29-2024 End: 27-13-2845YjhnplLnrzhxy Toth [facility] Family MedicineComment on above:Disc displacement, lumbarStart: 01-24-2024 End: 23-18-0181HvogcxZxbykpi M Asif MD Work Phone: [facility] Family MedicineComment on above: Parkinson's disease ([facility]) (Primary Dx); Type 2 diabetes mellitus treated without insulin ([facility]); Type 2 diabetes mellitus without complication, without long-term current use of insulin ([facility])Start: 01-08-2024 End: 11-56-6025XcqbzsKsjcih Sleek CMADayton Osteopathic Hospital [facility]icians Family MedicineComment on above:Disc displacement, lumbarStart: 01-02-2024 End: 14-01-3931Fjuyec outpatient visit 25 Mar BARRERA Work Phone: [facility] - Pain Management ClinicComment on above:Lumbar post-laminectomy syndrome (Primary Dx)Start: 12-25-2023 End: 20-96-5897Prsgiy outpatient visit 25 Rosette Underwood MD Work Phone: [facility] Family MedicineComment on above: Hypertriglyceridemia (Primary Dx); HypercholesteremiaStart: 12-11-2023 End: 87-01-7402BnkhaxRblfej Sleek [facility] Family MedicineComment on above:Disc displacement, lumbarStart: 11-27-2023 End: 51-73-9157Gcioortrl encounterMamaurilio BARRERA Work Phone: [facility] - Pain Management ClinicStart: 11-06-2023 End: 32-78-2263Zjfngp Seymour Underwood MD Work Phone: [facility] Family MedicineStart: 10-29-2023 End: 62-52-1946Ncwnvn outpatient visit 25 minutesGuillaume BARRERA Work Phone: [facility] - Pain Management ClinicComment on above:Lumbar post-laminectomy syndrome (Primary Dx); Spinal stenosis of lumbar region with neurogenic claudicationStart: 10-25-2023 Orders Seymour Underwood MD Work Phone: [facility] Family MedicineStart: 10-24-2023 Telephone encounterSusan Calabrese [facility] MedicineStart: 10-12-4231LhusesAnkdkp Swanson [facility] Family MedicineComment on above:Disc displacement, lumbarStart: 59-00-8215TqehimFzjjbt Sleek [facility] Family MedicineComment on above:Disc displacement, lumbarStart: 63-32-4372Fbbzbbcsc encounterMeghana Carrera [facility] Family MedicineComment on above:Er Follow-upDisc displacement, lumbar (Primary Dx) Start: 10-03-2023 End: 76-34-0330Fwjsyo outpatient visit 15 minutesGuillaume BARRERA Work Phone: [facility] - Pain Management ClinicComment on above:Spinal stenosis of lumbar region with neurogenic claudication (Primary Dx)Start: 09-25-2023 End: 67-86-6881Fjqbcn outpatient visit 25 minutesJustin Underwood MD Work Phone: [facility] Family MedicineComment on above: Type 2 diabetes mellitus without complication, without long-term current use of insulin ([facility]) (Primary Dx); Parkinson's disease; Schizoaffective disorder, depressive type ([facility]); Seizure disorder ([facility])Start: 88-51-6320Orjwuyitl encounterOfelia Barrientos RN [facility] Pain Management ClinicStart: 09-03-2023 End: 25-72-0863Uxddjh outpatient visit 25 minutesWorldcast Incmartín PA Work Phone: [facility] - Pain Management ClinicComment on above:Spinal stenosis of lumbar region with neurogenic claudication (Primary Dx)Start: 99-11-3242Iukoun flowsheetSteven A Mauricioher DPM Work Phone: [facility]ODIATRYStart: 77-55-1233Nkgjeb flowsheet Dionne A Cain DPM Work Phone: [facility]ODIATRYStart: 08-29-2023 End: 72-87-2941Lklutu outpatient visit 15 minutesDionne Barlow DPM Work Phone: [facility] PODIATRYComment on above:Type 2 diabetes mellitus without complication, without long-term current use of insulin ([facility]) (Primary Dx); Dermatophytosis of nail; Dystrophic nail; Pain around toenailStart: 29-81-9584JoybdjGardenia Underwood MD Work Phone: [facility] Family MedicineComment on above: Anxiety attack (Primary Dx)Start: 31-23-0537AlgnucPgyawfuak Rojas ENGINE TESTING SUPERVISOR-WALL CRANE OPERATOR Work Phone: [facility] Comment on above:Disc displacement, lumbarStart: 66-49-8129KmlqoaLipnwlw M Asif MD Work Phone: [facility] Family MedicineComment on above: Primary cough headache; Disc displacement, lumbar; Type 2 diabetes mellitus without complication, without long-term current use of insulin ([facility])Start: 64-55-8963EatjztKbiqabkgx Rojas ENGINE TESTING SUPERVISOR-WALL CRANE OPERATOR Work Phone: [facility] Comment on above:Disc displacement, lumbar; Type 2 diabetes mellitus without complication, without long-term current use of insulin ([facility])Start: 11-10-2022 End: 20-64-9869zmiftqbabwMZ DOCTOR MISCFacility:F4Msidy: 09-10-2022 End: 48-96-9133ovpapgprwbPT DOCTOR MISCFacility:I6Ozddz: 01-29-2022 End: 91-83-7708hhrkfomfhrYJ DOCTOR MISCFacility:Z7Sbths: 12-23-2021 End: 96-45-1979Ixxrojdhh department patient visitSSt. [facility]'s [facility] Centertart: 10-18-2021 End: 61-63-5851Kvfmwjkee department patient visitREFERRED SELFFacility:[facility] Start: 10-07-2021 End: 99-43-3193Tulhjaxwr department patient visitREFERRED SELFFacility:[facility] Start: 08-11-2021 End: 94-35-4222Wmsypfhcc department patient visitREFERRED SELFFacility:[facility] Start: 03-10-2021 End: 35-10-6920Anbvqjwna department patient visitREFERRED SELFFacility:[facility] Start: 02-26-2021 End: 94-21-8235ejvxfkrqckPUPHIUR SINGHFacility:[facility]ITALtart: 11-21-2020 End: 51-66-5269Oodapebhyk and management of inpatientRUSHEETH THUMMALAPALLYMProMedica Memorial Hospitaltart: 01-10-2017 End: 72-46-1603Zofgrziyw department patient visitNone ProviderFacility:[facility] Procedures DateProcedureProcedure DetailPerforming ClinicianStart: 33-17-0627Vhdso depression screening assessmentVanessa NowosbaldokiStart: 22-23-9018Yaogy depression screening assessmentVish Sanchez PA-C Work Phone: Start: 93-82-0262Lyrkh depression screening assessment Tegan Galarza CMAStart: 76-23-5376Orwydf-up visitFollow-upMICHAEL Dann CASTAÑEDAIKStart: 85-65-0081Dkxqu depression screening assessmentJustin Underwood MD Work Phone: Start: 02-01-6405Xpvop depression screening assessment Justin Underwood MD Work Phone: Start: 90-63-6470Iqupi depression screening assessment Ankita BRINK Work Phone: Start: 35-36-3033Jqwsumekpxge [Mass/volume] in Urine by Test stripAnkita BRINK Work Phone: Plan of Treatment DateCare ActivityDetailAuthorStart: 35-23-4082Vtuom BMI ScreeningAdult BMI ScreeningProMedica Health SystemStart: 61-41-3769Zcpbckt ScreeningTobacco ScreeningProMedica Health SystemStart: 78-04-3058Ajkmn BMI ScreeningAdult BMI ScreeningProMedica Health SystemStart: 35-35-3339Ecpotnm ScreeningTobacco ScreeningProMedica Health SystemStart: 21-98-0068Cantu BMI ScreeningAdult BMI ScreeningProMedica Health SystemStart: 10-30-7400Oxbuhqg ScreeningTobacco ScreeningProMedica Health SystemStart: 70-39-2563Kjqba BMI ScreeningAdult BMI ScreeningProMedica Health SystemStart: 49-18-7476Bfbhijhnvu ScreeningDepression ScreeningProMedica Health SystemStart: 71-13-5369Wjbpzgo ScreeningTobacco ScreeningProMedica Health SystemStart: 61-57-3549Ybiuh BMI ScreeningAdult BMI ScreeningProMedica Health SystemStart: 61-51-9851Xlqszom ScreeningTobacco ScreeningProMedica Health SystemStart: 88-28-1214Ndchj BMI ScreeningAdult BMI ScreeningProMedica Health SystemStart: 59-05-2138Imhrx BMI ScreeningAdult BMI ScreeningProMedica Health SystemStart: 12-80-8409Pyymppfttn ScreeningDepression ScreeningProMedica Health SystemStart: 27-45-9166Eminihl ScreeningTobacco ScreeningProMedica Health SystemStart: 95-30-1836Mdatd BMI ScreeningAdult BMI ScreeningProMedica Health SystemStart: 13-11-0498Fhwscns ScreeningTobacco ScreeningProMedica Health SystemStart: 80-12-8849Nmfhxph ScreeningTobacco ScreeningProMedica Health SystemStart: 90-63-4716Aikzw BMI ScreeningAdult BMI ScreeningProMedica Health SystemStart: 40-28-0468Aykmg BMI ScreeningAdult BMI ScreeningProMedica Health SystemStart: 50-35-3930Nrbyvda ScreeningTobacco ScreeningProMedica Health SystemStart: 75-47-1008Erqsk BMI ScreeningAdult BMI ScreeningProMedica Health SystemStart: 04-13-4804Zqugnrgnlr ScreeningDepression ScreeningProMedica Health SystemStart: 68-43-7526Ujhxlfp ScreeningTobacco ScreeningProMedica Health SystemStart: 25-13-6958Ttdyz BMI ScreeningAdult BMI ScreeningProMedica Health SystemStart: 44-31-2570Rdofqkk ScreeningTobacco ScreeningProMedica Health SystemStart: 52-68-1588Otnrp BMI ScreeningAdult BMI ScreeningProMedica Health SystemStart: 70-93-4620Moxfyvy ScreeningTobacco ScreeningProMedica Health SystemStart: 94-12-5032Lrwzq BMI ScreeningAdult BMI ScreeningProtestant Hospital SystemStart: 87-71-4401Rsynstekip ScreeningDepression ScreeningProtestant Hospital SystemStart: 77-43-1473Ghkinq Use: DiabeticStatin Use: DiabeticProtestant Hospital SystemStart: 09-15-2025 End: 55-62-1695Lzjyrmh encounter kexvkjyec83/25/2026 9:30 AM EST Office Visit [facility] [place] [address] Vish Sanchez PA-C [address], [facility] [address] [place] [address] [facility] Hospitaltart: 92-14-6357Clynyhv ScreeningTobacco ScreeningProtestant Hospital SystemStart: 05-03-9457Agrfv BMI ScreeningAdult BMI ScreeningProtestant Hospital SystemStart: 58-37-4536Jfcckxe ScreeningTobacco ScreeningKettering Health Daytonca [facility] SystemStart: 67-13-4246SMhA,Tdap and Td Vaccines (2 - Td or Tdap)DTaP,Tdap and Td Vaccines (2 - Td or Tdap)[facility] SystemStart: 39-56-2554Ouzld BMI ScreeningAdult BMI ScreeningKettering Health Daytonca [facility] SystemStart: 09-15-6986Nmcqrco ScreeningTobacco ScreeningProtestant Hospital SystemStart: 07-01-2025 End: 28-56-9834Bitzoeqs Uqayfmw2507/01/2025 3:30 PM EST Clinical Support [facility] [address] [place] [address] Justin Underwood MD [address], [facility] [place] [address] [facility] Centertart: 64-53-9557Vmuzmnn ScreeningTobacco ScreeningProtestant Hospital SystemStart: 06-04-2025 End: 74-10-6316Wyfqvjg encounter qwfrsujuh10/14/2025 11:30 AM EST Office Visit [facility] [address] [place] [address] [place] [address] Lissett Keller, ENGINE TESTING SUPERVISOR-WALL CRANE OPERATOR [address] [facility] [address] [place] [address] [facility]/Sleep MedicineStart: 05-28-2025 End: 55-73-0250Mwnkwan encounter wchwpwray83/07/2025 11:15 AM EST Appointment [facility] [address] [place] [address] Cinda Steve, ENGINE TESTING SUPERVISOR-WALL CRANE OPERATOR [address] [place] [address] [facility] - MRI ImagingStart: 05-26-2025 End: 94-89-6694Gucugwn encounter nyooqazxu42/05/2025 10:45 AM EST Office Visit [facility] [address] [place] [address] Myla Rm, TABATHAC [address] [facility], 2nd [place] [address] [facility] - Pain Management ClinicStart: 05-12-2025 End: 74-14-0510Wqvnvmv encounter kcxyizdib59/22/2025 9:30 AM EDT Office Visit [facility] [place] [address] [place] [address] Vish Sanchez, PA-C [address], [facility] [address] [place] [address] [facility] Hospitaltart: 33-75-9937Ndcjf BMI ScreeningAdult BMI Screening [facility] SystemStart: 25-81-5958Zctcndg ScreeningTobacco Screening [facility] SystemStart: 05-07-2025 End: 45-62-8746Rfkgmnb encounter izpbrgpkf46/17/2025 12:45 PM EDT Appointment [facility] [address] [place] [address] Cinda Steve, ENGINE TESTING SUPERVISOR-WALL CRANE OPERATOR [address] HAWKINSCEDAR COUNTY MEM[facility]IAL [place] [address] [facility] - MRI ImagingStart: 53-98-0701Qayzqww ScreeningTobacco Screening [facility] SystemStart: 04-22-2025 End: 03-22-7614Qeihigw encounter wujajduew62/02/2025 10:45 AM EDT Appointment [facility] - [facility] Re[facility] [address] [place], [place] [address] [address] [phone] [facility] - Total RehabStart: 35-16-6280Ejmve BMI ScreeningAdult BMI ScreeningProtestant Hospital SystemStart: 96-92-6185Tglyozm ScreeningTobacco ScreeningKettering Health Daytonca [facility] SystemStart: 17-01-7579Cgjvl BMI ScreeningAdult BMI ScreeningKettering Health Daytonca [facility] SystemStart: 12-51-5072Gdwkbvp ScreeningTobacco ScreeningKettering Health Daytonca [facility] SystemStart: 10-71-2343Asstm BMI ScreeningAdult BMI ScreeningProBucyrus Community Hospitalca [facility] SystemStart: 90-54-3173Npzsasd ScreeningTobacco ScreeningKettering Health Daytonca [facility] SystemStart: 03-25-2025 End: 37-26-2226Fdlnzow encounter /04/2025 1:30 PM EDT Office Visit [facility] [address] [place] [address] [address] [place], [place] [address] Rand Recinos DO [address] [facility] [address], [address] [place], [place] [phone] [facility] MedicineStart: 03-24-2025 End: 19-69-7068Ogqdfac encounter hhpcywyhu02/03/2025 12:30 PM EDT Office Visit [facility] [address] [place] [address] Myla Rm PA-C [address] [place], [place] [phone] [facility] Pain Management ClinicStart: 07-55-3082LAYTB-19 Vaccine ( season)COVID-19 Vaccine ()[facility] Start: 29-81-2313Ktlahvevg vaccinationProtestant Hospital SystemStart: 03-16-2025 Adult BMI ScreeningAdult BMI ScreeningProKettering Health Hamilton SystemStart: 03-12-2025 End: 65-87-4981Jaqyewc encounter ovpbtyyto84/22/2025 2:00 PM EDT Office Visit [facility] [address] [place], [place] [address] Justin Underwood MD [address], [place], [place] [address] [facility] Family MedicineStart: 65-63-8662Ntjtrja ScreeningTobacco ScreeningProtestant Hospital SystemStart: 62-38-2685Ndhyv BMI ScreeningAdult BMI ScreeningProKettering Health Hamilton SystemStart: 22-14-2167Vlbmbmrvmo ScreeningDepression ScreeningProBucyrus Community Hospitalca [facility] SystemStart: 76-33-1059Nnawnns ScreeningTobacco ScreeningKettering Health Daytonca [facility] SystemStart: 03-01-2025 End: 81-89-1496Nekcgre encounter ryoqczatv71/11/2025 3:45 PM EDT Appointment [facility] [address] [facility] [address] [phone] Medical [facility]Health [facility] - MRI ImagingStart: 75-87-8475Iaywtvg ScreeningTobacco ScreeningProMedica Health SystemStart: 02-15-2025 End: 94-13-8255Sltmnax encounter pmatmndvo59/28/2025 3:00 PM EDT Appointment [facility] [address] [facility] [place] [address] Disorder of sacrum; Trochanteric bursitis of right hip [facility] - Total RehabComment on above:Disorder of sacrum; Trochanteric bursitis of right hipStart: 02-09-2025 End: 47-04-9873NF Brain WO and W contrast IVMR brain with and without contrast Imaging Routine Migraine without aura and with status migrainosus, not intractable Visual changes Expected: 02/09/2025, Expires: 02/09/2026[facility] Work Phone: Comment on above:Expected: 02/09/2025, Expires: 02/09/2026Start: 02-09-2025 End: 10-03-3525Qhzafkj encounter wvdgujwaw01/22/2025 9:30 AM EDT Office Visit [facility] [place] [address] [place] [address] Vish Sanchez, LAMIN [address] [facility] [address] [place] [address] [facility] Hospitaltart: 02-01-2025 End: 34-47-2985Qizkjkr encounter ybdrlofnq97/14/2025 11:30 AM EDT Office Visit [facility] [address] [place] [address] [place] [address] Rand Recinos, [address] [place] [address], [address] [address] [facility] Centertart: 01-29-2025 End: 19-28-3456Odabksg encounter prhlxoxbb83/11/2025 11:00 AM EDT Office Visit [facility] [address] [place] [address] Khadar Cordero MD [address] [facility] [address] [place] [address] Lissett Keller APRN-CNP [address] [facility] [address] [place] [address] [facility] Pul[facility]/Sleep MedicineStart: 10-18-7912Bvrul BMI ScreeningAdult BMI ScreeningProKettering Health Hamilton SystemStart: 22-81-6221Tebkeji ScreeningTobacco ScreeningKettering Health Daytonca [facility] SystemStart: 01-20-2025 End: 33-01-6958Nbutfix encounter dxxswjytz42/02/2025 12:45 PM EDT Office Visit [facility] [address] [place] [address] Myla Rm PA-C [address] [place] [address] [facility] ClinicStart: 01-06-2025 End: 59-01-9850Bcjdpgl encounter /18/2025 12:15 PM EDT Office Visit [facility] [address] [place] [address] Myla Rm PA-C [address] [place] [address] [facility] Pain Management ClinicStart: 72-48-4766Gteoa BMI Screening Adult BMI ScreeningProtestant Hospital SystemStart: 94-96-7344Ebimfee Screening Tobacco ScreeningProtestant Hospital SystemStart: 12-18-2024 End: 00-12-7227Iomzmav encounter cxrrwngaj73/30/2025 9:00 AM EDT Office Visit [facility] [place] [address] [place] [address] Vish Sanchez PA-C [address], [place] [address] [place] [address] [facility] Hospitaltart: 12-09-2024 End: 28-45-0858Rwrjmyt encounter flijjrggm14/21/2025 11:00 AM EDT Office Visit [facility] [place] [address] [place] [address] Vish Sanchez PA-C [address], [place] [address] [place] [address] [facility]tart: 12-03-2024 End: 45-05-8348Nctjovxtgdxn consultation with vnnuhtw2912/03/2024 4:30 PM EDT Telemedicine [facility] [address] [place] [address] Justin Underwood MD [address] [place], [place] [phone] [facility]: 11-11-2024 End: 20-11-0940Itjcmeb encounter vxrpuytha08/23/2025 10:30 AM EDT Office Visit [facility] [address] [place] [address] Myla Rm PA-C [address] [place], [place] [phone] [facility] Pain Management ClinicStart: 11-09-2024 End: 96-92-8804Gberbto encounter jtlvdosyi56/21/2025 1:30 PM EDT Office Visit [facility] [address] [place] [address] Justin Underwood MD [address] [place], [place] [address] [facility] Family MedicineStart: 32-75-5822Obncbmv ScreeningTobacco ScreeningProKettering Health Hamilton SystemStart: 10-23-2024 End: 66-54-6223Bzllrmr encounter /04/2025 11:00 AM EDT Office Visit [facility] [address] [place] [address] Khadar Cordero MD [address] [address] Eric Young MD [address] [address] [facility]/Sleep MedicineStart: 10-22-2024 End: 70-64-6541Rszjrsc encounter pssvixbuy26/03/2025 12:30 PM EDT Office Visit [facility] [address] [place] [address] Guillaume Steve, BRUCE [address] [facility], 2nd Floor [place], [place] [address] [facility] [facility] ClinicStart: 86-39-8285Cudmyu Use: Diabetic Statin Use: DiabeticProKettering Health Hamilton SystemStart: 12-09-1548Wrgircs Screening Tobacco ScreeningProtestant Hospital SystemStart: 79-95-0659Smtnkfr Screening Tobacco ScreeningProtestant Hospital SystemStart: 17-81-2733Irssn BMI Screening Adult BMI ScreeningProKettering Health Hamilton SystemStart: 07-91-1574Qomoybo Screening Tobacco ScreeningProBucyrus Community Hospitalca [facility] SystemStart: 09-21-2024 End: 91-93-8558Fqnohps encounter kxkacpcqb93/03/2025 10:45 AM EST Appointment [facility] - Total Rehab [address] [place] [address] [phone] Health [facility] - Total RehabStart: 46-81-5114Avpngsn ScreeningTobacco ScreeningSelect Specialty Hospital - Greensborotart: 09-09-2024 End: 05-78-4996Dyiqukq encounter eitrybnfy92/19/2025 9:30 AM EST Appointment [facility] Rehab [address] [place] [address] Left shoulder pain, unspecified chronicityProNoland Hospital [facility] - Total RehabComment on above:Left shoulder pain, unspecified chronicityStart: 49-01-8183Vyuymqk ScreeningTobacco Screening [facility]art: 09-02-2024 End: 35-29-3369Eaxqapr encounter ltogktuqb00/12/2025 12:45 PM EST Office Visit [facility] [address] [place] [address] Myla Rm PA-C [address] [facility], 2nd Floor [place], [place] [address] [facility] - Pain Management ClinicStart: 62-71-1200Tpjzwda Screening Tobacco ScreeningSelect Specialty Hospital - Greensborotart: 08-14-2024 End: 83-28-7739Ggpypvhrl to same day surgery wdyqbs3808/14/2024 2:00 PM EST - 08/14/2024 3:00 PM EST Surgery [facility] - Surgery [address] [place] [address] Titus Pritchett MD [address], [place] [address] REVISION STIMULATOR SPINAL CORDProUc Health - SurgeryComment on above: REVISION STIMULATOR SPINAL CORDStart: 08-14-2024 End: 57-25-4240Mikcmiipgh mexyqtwfxzto62/24/2025 2:00 PM EST Anesthesia Event [facility] Surgery [address] [facility] [place] [address] Mitchell Perales, DO [address] [facility] [place] [address] [facility] HospitalStart: 08-14-2024 End: 10-80-5310CXFSCDVT STIMULATOR SPINAL CORDREVISION STIMULATOR SPINAL CORD post-laminectomy syndrome 08/14/2024 2:00 PM ESTProKettering Health Hamilton SystemStart: 66-28-3057Byzkufjsun hospital visit by zicwxhxzf19/24/2025 2:00 PM EST Hospital Encounter [facility] [address] [place] [address] Titus Pritchett MD [address] [place] [address] [facility] HospitalStart: 08-05-2024 End: 29-60-3143Hmguqvo encounter nwcvibxvs61/15/2025 10:30 AM EST Office Visit [facility] [address] [place] [address] Khadar Cordero MD [address] [address] [facility]/Sleep MedicineStart: 07-30-2024 End: 82-92-3159Zqzbgvi encounter jqfzoosql47/09/2025 12:45 PM EST Procedure visit [facility] Admit [address] [place] [address] [phone] Medical Center AdmitStart: 04-77-5441Kbato BMI ScreeningAdult BMI ScreeningProKettering Health Hamilton SystemStart: 52-30-8364Cpeswyz ScreeningToColorado River Medical Center SystemStart: 07-07-2024 End: 33-53-6223Aypnlrl encounter rtgvgoycf82/17/2024 1:45 PM EST Office Visit [facility] [address] [place] [address] Cinad Steve, ENGINE TESTING SUPERVISOR-WALL CRANE OPERATOR [address] [place] [address] [facility] Pain Management ClinicStart: 06-09-2024 End: 67-43-5049Nalftel encounter thiggdvln34/19/2024 2:45 PM EST Office Visit [facility] [address] [place] [address] Cinda Steve, ENGINE TESTING SUPERVISOR-WALL CRANE OPERATOR [address] [place] [address] [facility] Pain Management ClinicStart: 05-11-2024 End: 07-21-9904Cpigdxt encounter /21/2024 1:45 PM EDT Office Visit [facility] [address] [place] [address] Justin Underwood MD [address] [place] [address] [facility] MedicineStart: 05-04-2024 End: 06-74-1078Adxptel encounter roritjwzz86/14/2024 9:00 AM EDT Office Visit [facility] [address] [place] [phone] Justin Underwood MD [address], [place] [address] [facility] MedicineStart: 04-30-2024 End: 93-62-6887Xuuzarg encounter fharfxsxr60/10/2024 2:15 PM EDT Office Visit [facility] [address] [facility] [address] Guillaume Steve PA [address], [address] [place] [address] [facility] Management ClinicStart: 04-17-2024 End: 27-88-5619Htrdqrrmi to same day surgery wcjdrb7704/17/2024 2:00 PM EDT - 04/17/2024 3:30 PM EDT Surgery [facility] Surgery [address] [place] [address] Titus Pritchett MD [address] [place] [address] INSERTION PERMANENT STIMULATOR SPINAL CORD [09137 (CPT )][facility] SurgeryComment on above:INSERTION PERMANENT STIMULATOR SPINAL CORD [20230 (CPT )]Start: 04-17-2024 End: 28-02-3171Tpmrbkgbwk zugulsomlexz76/27/2024 2:00 PM EDT Anesthesia Event [facility] Surgery [address] [place], [place] [address] Mitchell Perales, DO [address] [facility] [place] [address] [facility] - SurgeryStart: 04-17-2024 End: 94-87-9500Hiid/rplcmt spi npgr dir/induxive couplingINSERTION PERMANENT STIMULATOR SPINAL CORD post-laminectomy syndrome 04/17/2024 2:00 PM EDTFREMONT SURGERYStart: 25-11-3964Afdqegtzrp hospital visit by zbytljjbp82/27/2024 2:00 PM EDT Hospital Encounter [facility] Surgery [address] [place] [address] Titus Pritchett MD [address] [place] [address] [facility] - SurgeryStart: 04-02-2024 End: 33-63-9164Qzdohuh encounter gkpyfbdno02/12/2024 11:15 AM EDT Office Visit [facility] [address] [place], [place] [phone] Justin Underwood MD [address], [place], [place] [address] [facility] Meharrytart: 04-01-2024 End: 64-58-1938Vtxstyq encounter unzymbyjd35/11/2024 11:15 AM EDT Procedure visit [facility] - Pre Admit [address] [place] [address] [phone] Medical Center AdmitStart: 20-02-7122FMSJU-19 Vaccine ( season)COVID-19 Vaccine ( season)[facility] SystemStart: 89-40-1039CZBQF-19 Vaccine ( season)COVID-19 Vaccine ( season)[facility] SystemStart: 66-41-5119Kkialpjle vaccinationInfluenza VaccineProtestant Hospital SystemStart: 03-12-2024 End: 58-37-6500Yegelzw encounter dojaelxud77/22/2024 1:30 PM EDT Office Visit [facility] [address] [place] [address] Guillaume Steve PA [address], [address] [place], [place] [address] [facility] Pain Management ClinicStart: 03-09-2024 End: 44-68-9980Jecwknb encounter hbwzjxdha58/19/2024 3:00 PM EDT Office Visit [facility] [address] [facility] [address] [place] [address] Justin Underwood MD [address], [place] [address] [facility]harrytart: 02-27-2024 End: 58-18-4482Qgnfhbf encounter wgoextjfi87/08/2024 1:30 PM EDT Procedure Visit [facility] [address] [place] [address] Dionne Barlow, DPM [address] [place] [address] [facility]RYStart: 02-21-2024 End: 18-14-6382Alphwaveo to same day surgery qqciel9302/21/2024 2:45 PM EDT - 02/21/2024 3:26 PM EDT Surgery [facility] - Pain P rocedures [address] [place] [address] Titus Pritchett MD [address] [place] [address] INSERTION STIMULATOR SPINAL CORD-TRIAL [38935(CPT )][facility] - Pain ProceduresComment on above:INSERTION STIMULATOR SPINAL CORD-TRIAL [98791 (CPT )]Start: 02-21-2024 End: 89-82-1998Sbi impltj nstim electrode array epiduralINSERTION STIMULATOR SPINAL CORD Lumbar post-laminectomy syndrome 02/21/2024 2:45 PM EDTFREMONT PAIN Start: 33-68-3389Nqdbgmtiae hospital visit by ltdjajzvt62/02/2024 2:45 PM EDT Hospital Encounter [facility] Pain Procedures [address] [place] [address] Titus Pritchett MD [address] [place] [address] [facility] - Pain ProceduresStart: 86-60-2995Hncekugndx Screening Depression ScreeningProtestant Hospital SystemStart: 12-25-2023 End: 43-49-5290Eveppxlrjugt consultation with bfksyzh0312/25/2023 8:00 AM EDT Telemedicine [facility] [address] [place] [address] Justin Underwood MD [address] [place], [place] [address] [facility]: 10-29-2023 End: 23-29-4982Knqaqvb encounter fhsoznufs89/09/2024 2:30 PM EDT Office Visit [facility] [address] [place] [address] Guillaume Steve, PA [address], [address] [place] [phone] [facility] - Pain Management ClinicStart: 10-03-2023 End: 23-14-9798Zwtbysb encounter xnopolyzd55/14/2024 1:15 PM EDT Office Visit [facility] [address] [place] [address] Guillaume Steve, PA [address], [address] [place], [place] [address] [facility] - Pain Management ClinicStart: 10-01-2023 End: 88-43-4696Awyxqief Fzsyecx5410/01/2023 9:00 AM EDT Clinical Support [facility] [address] [place] [address] [facility] MedicineStart: 09-25-2023 End: 72-59-2780QGI W Auto Differential panel - BloodCBC auto differential Lab Routine Type 2 diabetes mellitus without complication, without long-term current use of insulin ([facility] Expected: 09/25/2023 (Approximate), Expires: 09/24/2024 [facility] Work Phone: Comment on above:Expected: 09/25/2023 (Approximate), Expires: 09/24/2024Start: 09-25-2023 End: 03-28-2876Hmtzrmixohirr metabolic 2000 panel - Serum or PlasmaComprehensive metabolic panel Lab Routine Type 2 diabetes mellitus without complication, without long-term current use of insulin ([facility] Expected: 09/25/2023 (Approximate), Expires: 09/24/2024[facility] SystemComment on above: Expected: 09/25/2023 (Approximate), Expires: 09/24/2024Start: 09-25-2023 End: 30-91-0339Omdkggityu A1c/Hemoglobin.total in BloodHemoglobin A1c Lab Routine Type 2 diabetes mellitus without complication, without long-term current use of insulin ([facility]) Expected: 09/25/2023 (Approximate), Expires: 09/24/2024 [facility] SystemComment on above:Expected: 09/25/2023 (Approximate), Expires: 09/24/2024Start: 09-25-2023 End: 73-19-3321Krjqq 1996 panel - Serum or PlasmaLipid profile Lab Routine Type 2 diabetes mellitus without complication, without long-term current use of insulin ([facility]) Expected: 09/25/2023 (Approximate), Expires: 09/24/2024 [facility] SystemComment on above:Expected: 09/25/2023 (Approximate), Expires: 09/24/2024Start: 09-25-2023 End: 28-20-8547Bnzmcco encounter iblalfrvw30/06/2024 11:30 AM EST Office Visit [facility] [address] [place] [address] Justin Underwood MD [address] [place], [place] [address] [facility] Family MedicineStart: 09-13-2023 End: 37-24-7061Bzdalmdps to same day surgery tzqtnw6009/13/2023 9:07 AM EST - 09/13/2023 9:14 AM EST Surgery [facility] - Pain P rocedures [address] [place] [address] Titus Pritchett MD [address], [place] [address] INJECTION SPINE TRANSFORAMINAL: right L12 [49103 (CPT )][facility] ProceduresComment on above:INJECTION SPINE TRANSFORAMINAL: right L12 [06115 (CPT )]Start: 09-13-2023 End: 40-21-6847Dhl anes&/strd w/img tfrml edrl lmbr/sac 1 lvlINJECTION SPINE TRANSFORAMINAL Spinal stenosis of lumbar region with neurogenic claudication 09/13/2023 9:07 AM ESTFREMONT PAINStart: 48-52-2435Vqvfoagebn hospital visit by /23/2024 9:07 AM EST Hospital Encounter [facility] - Pain Procedures [address] [place] [address] Titus Pritchett MD [address] [place] [address] [facility] - Pain ProceduresStart: 09-10-2023 End: 33-52-1488Cidkpgc encounter ugevxhdyy15/20/2024 3:30 PM EST Office Visit [facility] [address] [place] [phone] Justin Underwood MD [address] [place] [address] [facility] Family MedicineStart: 09-03-2023 End: 70-22-0185Fhcyjmh encounter hrfjjvoxz80/13/2024 1:45 PM EST Office Visit [facility] [address] [place] [address] Guillaume Steve PA [address], [address] [place] [address] [facility] - Pain Management ClinicStart: 08-26-2023 End: 24-54-2131Unvjyde encounter qzhnuqokf79/05/2024 10:45 AM EST Appointment [facility] - MRI Imaging [address] [place] [address] Guillaume Steve PA [address], [address] [place] [address] [facility] - MRI ImagingStart: 61-16-3134KYWSY-19 Vaccine ( season)COVID-19 Vaccine ( season)[facility]: 39-13-4988Gymqbkmhn vaccinationNOMS HealthcareStart: 94-25-3181Ghtoi screening for proteinUrine MicroalbuminProtestant Hospital SystemStart: 36-00-4614Snbdk BMI Follow Up PlanAdult BMI Follow Up PlanProtestant Hospital SystemStart: 11-23-1995 Diabetic foot examinationDiabetic Foot ExamProtestant Hospital SystemStart: 23-63-0176Tygdueob screeningDiabetic Ophthalmology ExamProtestant Hospital System Start: 19-61-9745Ejordeebb for malignant neoplasm of colonNOMS HealthcareStart: 97-23-2540Bzanzsr CounselingTobacco CounselingMarietta Memorial Hospital End: 45-89-0943Rkdnp metabolic 2000 panel - Serum or PlasmaBasic Metabolic Panel Lab Routine Type 2 diabetes mellitus without complication, without long-term c urrent use of insulin ([facility]) 1 Occurrences starting 03/25/2025 until 03/25/2026ProProsetta SystemComment on above:1 Occurrences starting 03/25/2025 until 03/25/2026 End: 09-10-4830Ovbrzariql A1c/Hemoglobin.total in BloodHemoglobin A1c Lab Routine Type 2 diabetes mellitus treated without insulin ([facility]) 1 Occurrences starting 12/03/2024 until 12/03/2025ProZiiosca Work Phone: Comment on above:1 Occurrences starting 12/03/2024 until 12/03/2025 End: 27-05-0031Oknnblcdow A1c/Hemoglobin.total in BloodHemoglobin A1c Lab Routine Type 2 diabetes mellitus without complication, without long-term current use of insulin ([facility]) 1 Occurrences starting 03/25/2025 until 03/25/2026 [facility] Work Phone: Comment on above:1 Occurrences starting 03/25/2025 until 03/25/2026Insj/rplcmt spi npgr dir/induxive couplingINSERTION PERMANENT STIMULATOR SPINAL CORD Lumbar post-laminectomy syndromeFREMONT PAIN End: 06-48-9755Woltv panelLipid panel Lab Routine Type 2 diabetes mellitus without complication, without long-term current use of insulin ([facility]) Hyperlipidemia, unspecified hyperlipidemia type 1 Occurrences starting 025 until 03/25/2026ProProsetta SystemComment on above:1 Occurrences starting 03/25/2025 until 03/25/2026 End: 95-91-8548ZW Cervical spine WO contrastMR cervical spine without contrast Imaging Routine Cervical post-laminectomy syndrome 1 Occurrencesstarting 04/06/2025 until 04/06/2026Pro[facility] Work Phone: Comment on above:1 Occurrences starting 04/06/2025 until 04/06/2026Prq impltj nstim electrode array epiduralINSERTION STIMULATOR SPINAL CORD Lumbar post-laminectomy syndromeFREMONT PAINPrq impltj nstim electrode array epiduralINSERTION STIMULATOR SPINAL CORD Postlaminectomy syndrome of lumbar regionFREMONT PAIN End: 44-79-6091Euejiwdc acid level, freeValproic acid level, free Lab Routine Type 2 diabetes mellitus without complication, without long-term current use of insulin ([facility]) Seizure disorder ([facility]) 1 Occurrences starting 09/25/2023 until 09/24/2024[facility] HospitalComment on above:1 Occurrences starting 09/25/2023 until 09/24/2024 Immunizations Immunization DateImmunizationNotesCare YvibgsfcWyleylxi41-63-5177dxeeegose, injectable, madin cameron canine kidney, preservative freeReginaid Kj BAUTISTA Work Phone: [facility] HospitalKwzolp29-14-3696Bdzdevdyxqyq, In Clinic,; Translations: [Drug or medicament (substance)]Justin Underwood MD Work Phone: [facility] HospitalYtdtfp33-04-5909xxkfltayl virus vaccine, unspecified formulationMamaurilio BARRERA Work Phone: [facility] HospitalQvqsec54-51-0901ixvbhslqv, injectable, quadrivalent, preservative freeSteven Rusher DPM Work Phone: [facility] HospitalHwwwumgbip13-82-2703xidlfprut virus vaccine, unspecified formulationAlexandra Qiu ENGINE TESTING SUPERVISOR-WALL CRANE OPERATOR Work Phone: [facility] HospitalDrnjaw24-45-2817Qcpxolupk, High-dose Seasonal, Quadrivalent, Preservative FreeSteven Rusher DPM Work Phone: [facility] HospitalYnjaatdrky84-62-2042udkzqkaoy, injectable, quadrivalent, preservative freeSteven Rusher DPM Work Phone: [facility] HospitalPnephevsnk82-17-0648jtcntgwnc, injectable, quadrivalent, preservative freeAlexandra Qiu ENGINE TESTING SUPERVISOR-WALL CRANE OPERATOR Work Phone: [facility] HospitalFmfrqn36-81-0007zpvxwldtp B vaccine, adult dosageSteven Rusher DPM Work Phone: [facility] HospitalItsztfhbgf02-93-9469ryhvovxij B vaccine, adult dosageAlexandra Qiu ENGINE TESTING SUPERVISOR-WALL CRANE OPERATOR Work Phone: [facility] HospitalGkagjq48-15-1226drsiszhsc, high dose seasonal, preservative-freeAlexanehemias Qiu ENGINE TESTING SUPERVISOR-WALL CRANE OPERATOR Work Phone: [facility] HospitalEuiyqs65-51-8148uxowpxcoo, seasonal, injectable, preservative freeSteven Rusher DPM Work Phone: [phone] HospitalTxyzvdqnmz53-04-5430uicjlgk and diphtheria toxoids, adsorbed, preservative free, for adult use (2 Lf of tetanus toxoid and 2 Lf of diphtheria toxoid)Ankita Qiu ENGINE TESTING SUPERVISOR-WALL CRANE OPERATOR Work Phone: [facility] HospitalYxfkys82-54-8996nhsvwyuhj, seasonal, injectableSteven Rusher DPM Work Phone: [phone] HospitalItheualzbn73-16-9786rptmdcuqh, seasonal, injectableSteven Rusher DPM Work Phone: [phone] HospitalHymmkjsdwb67-17-2709odxcybdeq, seasonal, injectableSteven Rusher DPM Work Phone: [phone] HospitalZabutzmgvf78-68-1817skinwvvgd, seasonal, injectableSteven Rusher DPM Work Phone: [phone] HospitalVwxxrdzjsn98-55-0479srhnm sxwczrnys-Z2H2-63, preservative-free, injectableSteven Rusher DPM Work Phone: [phone] HospitalWmvwmkpayb41-17-4924npfxcqaqx, seasonal, injectableSteven Rusher DPM Work Phone: [phone] Payers DatePayer CategoryPayerPolicy ID2021Medicaid [id number] [id number] [id number] 2.16.840.1.150751.3.57[id number] 2.0.1.891140.3.57[id number] 2.0.1.159520.3.57[id number] 2.0.1.453064.3.579.2.39757-45-5550Jtcryju45231339 2..1.080639.3.579.2.25295-72-5647Vwaigls94680102 2..1.357572.3.579.2.82256-92-2734Dnruxsl23502057 2..1.553696.3.579.2.15685-76-5939Rqbdlna3954508 2..1.196763.3.579.2.53031-61-7263Srgevpg5195330 2..1.325416.3.579.2.56163-96-0302Jzkhemb1696914 2..1.102620.3.579.2.67014-43-4819Siiwfjb293813373 2..1.986579.3.579.2.757209-69-8123Cuthisz30906331 2..1.559496.3.579.2.407847-30-4378Pirprrg322508177 2..1.674501.3.579.2.659434-09-2150Vlzivot02051848 2..1.779941.3.579.2.589945-99-2600Dhhzgzo226935574 2.0.1.835140.3.579.2.986[id number] 2.0.1.596924.3.579.2.222119-55-3476Njtkitd097844440 2.840.1.310185.3.579.2.597967-21-9512Hopgwfp071508901 2.840.1.500104.3.579.2.272837-39-0243Rjrwxpq522872338 2.0.1.076714.3.579.2.985442-38-0387Okhgjfh632292096 2.0.1.868882.3.579.2.776846-03-1114Vmwnghf275238800 2..1.023696.3.579.2.152142-69-1227Odaltlt261246196 2..1.258317.3.579.2.909660-36-1875Omldhwa015711328 2..1.099427.3.579.2.155007-09-7664Iokvagi811092383 2..1.730966.3.579.2.433209-78-0312Tsitcwa431858532 2..1.689593.3.579.2.374736-08-2856Axrmyaj888316798 2..1.576231.3.579.2.562782-43-1188Dykmguj711088134 2..1.335967.3.579.2.735602-77-3988Nosgadm613721510 2..1.877281.3.579.2.323149-68-2407Ngnlzft323787371 2.0.1.821194.3.579.2.950734-84-9925Mukppsv715685967 2.0.1.756637.3.579.2.042132-77-7875Bodguqq956699733 2.0.1.543225.3.579.2.539548-81-4531Hutefih311409591 2.0.1.531688.3.579.2.947814-22-6677Alzbsln972236288 2..1.264412.3.579.2.032550-55-8006Vjnpgkj103493249 2..1.611617.3.579.2.913612-59-8114Gjgjksd523719560 2..1.092451.3.579.2.741502-76-1350Jmzpybn099992790 2..1.741279.3.579.2.867476-43-5391Bkhtdfg155553196 2..1.478464.3.579.2.576609-54-8925Umtcmkj757918928 2..1.583069.3.579.2.025282-27-0110Xohvjcx356524449 2..1.458882.3.579.2.755810-12-9523Mjvrqdi29428527 2..1.801524.3.579.2.449901-99-4319Xasoeeu46977266 2..1.938037.3.579.2.581210-49-2733Coruzaw071717030 2..1.137822.3.579.2.761214-72-7895Rpgdinq719396006 2..1.274801.3.579.2.661227-05-3935Dplpggt570953770 2..1.212918.3.579.2.885675-94-7192Bybdldl525555791 2..1.524967.3.579.2.555169-02-8830Qxqvuks598367784 2.16.840.1.091551.3.579.2.657661-10-0569Wmzkrcs016480009 2.16.840.1.480742.3.57[id number] 2..840.1.551717.3.579.2.1286 [id number] 1958Medicare [id number] Social History DateTypeDetailFacilityStart: 02-38-7631Zwckcvb smoking status NHISNever smoked tobaccoNOMS HealthcareStart: 08-29-2023 End: 80-10-2487Szixuqi intakeLifetime non-drinker (finding)[facility] HealthcareStart: 08-12-2020 End: 78-12-1296Rckpzeq of Social functionProtestant Hospital SystemStart: 08-12-2020 End: 55-74-9279Iuequqa use panelProtestant Hospital SystemStart: 86-20-9365Thn Assigned At BirthNot on fileProtestant Hospital SystemStart: 07-22-2022 End: 78-38-9187Mqcplqf smoking status NHISSmokes tobacco dailyProKettering Health Hamilton SystemStart: 00-70-7699Ekpffnc of tobacco useCigarette SmokerProtestant Hospital SystemStart: 08-29-2023 End: 42-45-8853Ugbceih use and exposureSmokeless tobacco non-userProtestant Hospital SystemStart: 07-07-2024 End: 03-77-9318Zqodoukhd beverage intakeCurrent non-drinker of alcohol (finding) [facility] Health SystemHow hard is it for you to pay for the very basics like food, housing, medical care, and heatingNot hard at allProtestant Hospital System Start: [id number] (finding)[facility]MWind[facility] Hospital SystemHistory of tobacco use [facility] SystemStart: 12-09-2024 End: [id number] beverage intakeCurrent drinker of alcohol (finding) [facility] Greensborotart: [id number] CommentOcc.[facility] Memorial HospitalHow often do you have a drink containing alcohol?NeverMarietta Memorial Hospital Medical Equipment Procedure CodeEquipment CodeEquipment Original TextEquipment IdentifierDatesKit Nrstm 50cm Infinion 1x16 Spltr Trl Ld - [id number] - [id number]: 85-88-8706Kbs Nrstm 50cm Infinion 1x16 Spltr Trl Ld - [id number] - [id number]: 65-71-6951Gfeonoaucw Alpha 16 Implantable Pulse Generator Kit ()[id number], [id number] FDAStart: 98-20-3412Flnght [id number]: 02-50-3409Ygvtiq [id number]: 21-36-8394Ywhu X [id number]: [id number], [id number], [id number], [id number]: 02-25-2023 End: 03-04-2025 Functional Status OzrgZixgbg[id number] score [AUDIT-C]0 05/12/2025 9:38 AM EDT [facility] 08-22-2023 to 05-19-2025 Note Date & [id number] History of Present illness Narrative* Yani Dillon - 05/19/2025 11:26 AM EDT Good Morning! Patient's caregiver, Marco contacted SN requesting medication refills. Fenofibrate 54 mg - Take 1 tablet 54 mg total by mouth in the morning Gabapentin 600 mg - Take 1 tablet 600 mg total by mouth in the morning and 1 tablet 600 mg total before bedtime. Docusate sodium (COLACE) 100 mg - Take 1 capsule 100 mg total by mouth daily as needed for constipation Dextromethorphan-guaiFENesin 30-600 mg tablet extended release 12 hr - Take 1 tablet by mouth every12 twelve hours as needed cough. Montelukast 10 mg - Take 1 tablet 10 mg total by mouth nightly. When was the last Refill? Fenofibrate - 10/28/24 Gabapentin - 02/16/25 Docusate - Marco reported they cannot provide patient with medication as needed without a prescription from . Dextromethorphan-guaiFENesin - Marco reported they cannot provide patient with medication as needed without a prescription from . Montelukast - 01/27/25 Name of preferred Pharmacy? [facility], [facility] [place], [place] - [address], [facility] [address] When was the last OV with provider? 03/25/25 When is the next scheduled visit? 07/01/25 Thank you! [facility] Medicine Chronic Care Nurse Cement Sack Breaker [phone] documented in this encounterMarietta Memorial Hospital10-22-2025 History of Present illness Narrative* Vish Sanchez PA-C - 05/12/2025 9:30 AM EDT [facility] Neurology Office Note 05/08/2025 7:21 PM Patient info: Laxmi Torres is a 49 y.o. male Account No.: [id number] Acct: : 1975 PCP: JUSTIN UNDERWOOD MD Chief Complaint: Patient, 49 year old right hand dominant male, presents today for follow up Neurological evaluationregarding migraines. Last seen in the office on 02/09/25 Laxmi is present in the office today with a member of his senior care. Interval Hx: Brain MRI with and without contrast was completed on 03/01/25. It was unremarkable for intracranial pathology. At last office visit (02/09/25) we increased Topiramate to 50 mg, 3 tabs (150 mg) HS for ALEMAN/migraineprevention. We also discontinued Sumatriptan secondary to ineffectiveness and started Rizatriptan 10 mg +/- Zofran ODT 4 mg for abortive/symptomatic migraine relief. Topiramate has since been reduced back to 50 mg, 2 tabs (100 mg) HS secondary to potentials side effects of loss of taste, loss of appetite, and nausea/vomiting. Since reducing the dose, those symptoms have resolved. Migraine frequency is somewhat unclear, but it is reported that he has had at least 5 thus far thismonth. Subsequently, it would be reasonable to think he has still been averaging more than 5 per month. He even presented to the ER on 04/25/25 for treatment of migraine. This was his second time to the ER for treatment of migraine in the last 4 months. It appears his senior care has been giving him Tylenol for abortive/symptomatic migraine relief instead of the prescribed Rizatriptan. Current preventative ALEMAN/migraine medication: Depakote, Gabapentin, Metoprolol, Topiramate Preventative med/s previously tried include: Preventative med/s not indicated include: Current abortive/symptomatic relief ALEMAN/migraine medication: Rizatriptan Abortive/Symptomatic relief med/s previously tried include: otc analgesics, Sumatriptan Abortive/Symptomatic relief med/s not indicated include: Previous Studies: 03/01/25: Brain MRI with and without contrast - Unremarkable for intracranial pathology. 11/20/20: CT Head without contrast - No acute intracranial abnormality Prior Hx: Initial Consultation 12/09/24 Headache Hx: Onset of headaches was some time ago. Headache Characteristics: - Current Frequency: often (unclear) - Timing: onset varies - Duration: several hours - Location: holocephalic - Quality: pounding, pressure, and sharp - Intensity: ranges from moderate-severe - Aura: (-) - Associated sxs.: dizziness, photophobia, nausea, blurred vision - Autonomic sxs.: No associated lacrimation, asymmetric pupil dilation/constriction, scleral injection, ptosis, lateralized nasal congestion, or lateralized forehead sweating - Complicated sxs.: No associated loss of consciousness, confusional episodes/delirium, dysarthria,aphasia, paresthesias, or focal/lateralized weakness Contributing Factors: (-) hx of significant head injury/trauma: (-) hx of YARD CRANE OPERATOR infection: (-) hx of stroke or cerebrovascular malformation: (-) hx of intracranial mass/tumor/cyst/malformation: (+) hx of anxiety/depression/mood disorder: hx mood disorder Family Hx: (+) known family member/s with hx of recurrent ALEMAN/migraines: brother (-) known family member/s with hx of cerebral aneurysm: (-) known family member/s with hx of intracranial mass/tumor/cyst/malformation: Difficulty with gait or recurrent falls: none Laxmi does not wear corrective eye lenses. Most recent eye exam was some time ago. Follow up 02/09/25 Last office visit (12/09/24) started Topiramate with titration to 50 mg, 2 tabs (100 mg) HS for migraine prevention. Also, increased Sumatriptan to 100 mg +/- Zofran 4 mg for abortive/symptomatic migraine relief. ER on 01/24/25 for acute migraine treatment; Sumatriptan 100 mg was ineffective for relief. Seems to be getting ALEMAN multiple times per week. Periodic blurred vision, sometimes with ALEMAN and sometimes without. Denies loss of vision or diplopia. Labs 01/22/25: CMP showed a normal AST and ALT Past Medical Hx: See EMR Surgical Hx: See EMR Allergies: See EMR Review of Systems: Constitutional: Negative for fever, chills, sweats, or unintentional weight loss Eyes: Negative HENT: Negative Cardiovascular: Negative for chest pain and palpitations Respiratory: Negative for cough and shortness of breath Gastrointestinal: Negative for nausea, vomiting, abdominal pain and diarrhea Genitourinary: Negative for dysuria, urgency, frequency, or hematuria Musculoskeletal: Negative for myalgias or joint swelling Skin: Negative for skin rash Neurological: - as noted in the HPI Psychiatric/Behavioral: Negative Endocrine: Negative Hem/Onc: Negative Allergy/immunology: Negative The remainder of ROS is negative Vitals: BP: 113/82 HR: 93 Weight: 107 kg Physical Exam: General: well groomed, appears stated age Neurological Exam: The patient is awake, alert, and attentive Speech and language are normal Normal affect, with chronically reduced orientation and cognition EOMI, PERRL, No gross visual field deficits Face is symmetric, Tongue protrudes midline Palate rises symmetrically with uvula midline Shoulder shrug is strong bilaterally Nose to finger testing is without dysmetria Upper Extremity Drift is (-) Fine motor skills are approximately equal in each hand Tremor: (-) Sensation is intact and symmetric in the extremities bilaterally DTR's are 2+ throughout Herron's sign (-) bilaterally Strength throughout the Upper Extremities is 5/5 Strength throughout the Lower Extremities is 5/5 Muscle Tone throughout the extremities is normal Romberg is (); not tested today Gait is steady with normal base, normal stride and bilateral arm swing ASSESSMENT: Laxmi is a 49 year old right hand dominant male with a complex medical hx who gets frequent migraines without aura. PLAN: Start Ajovy 225 mg sc every 28 days for migraine prevention Continue Topiramate 50 mg, 2 tabs (100 mg) HS for migraine prevention; once on Ajovy for a few months, will look to wean-off Topiramate Rizatriptan 10 mg for abortive/symptomatic migraine relief ALEMAN log is recommended Identification and avoidance of personal ALEMAN/migraine triggers discussed Trying to stay on a regular sleep and eating schedule, staying well hydrated, and working on stressmanagement to help reduce ALEMAN/migraine frequency discussed Follow up in the office in 3-4 months Electronically Signed by: Vish Sanchez PA-C 05/12/25 1428 documented in this encounterMarietta Memorial Hospital10-07-2025 Miscellaneous Notes* Telephone Encounter - Tegan Galarza CMA - 04/27/2025 2:55 PM EDT Refill request received via fax from [facility] for the medication Topiramate 50 mg Take 3 tablets po nightly. Script was last written 02/09/25 with 3 refills, Quantity 90 tabs. The patient is scheduled to follow up in clinic 05/12/25. documented in this encounterMarietta Memorial Hospital10-07-2025 Telephone encounter Note* Telephone Encounter - Tegan Galarza CMA - 04/27/2025 2:55 PM EDT Refill request received via fax from [facility] for the medication Topiramate 50 mg Take 3 tablets po nightly. Script was last written 02/09/25 with 3 refills, Quantity 90 tabs. The patient is scheduled to follow up in clinic 05/12/25. [facility] Miscellaneous Notes* Telephone Encounter - Meghana Carrera CMA - 04/26/2025 8:05 AM EDT ED Outreach This documentation is being used for Transition of Care purposes: Yes/No: Yes ED Outreach Date: April 26, 2025 ED Outreach Method: COMMUNICATION METHOD: Telephone ED Outreach Attempt: second ED Outreach Outcome: Left Message Name of ED Facility: [facility] Date of ED Discharge: 04/25/2025 Discharge Diagnosis: Other migraine without status migrainosus ED Chief Complaint: Headache Current Symptom Status: Medication Changes Reviewed: Medication Questions/Concerns: Follow-up PCP Scheduled: Follow-up Specialist Scheduled: Follow up Testing Scheduled: Patient Contacted Office Prior to ED Visit: Additional Comments: Left message for patient to return call. Left second message for patient to contact the office. Will await return call. documented in this encounterDayton Oste[facility] Hospital [facility] [id number] Telephone encounter Note* Telephone Encounter - Meghana Carrera CMA - 04/26/2025 8:05 AM EDT ED Outreach This documentation is being used for Transition of Care purposes: Yes/No: Yes ED Outreach Date: April 26, 2025 ED Outreach Method: COMMUNICATION METHOD: Telephone ED Outreach Attempt: second ED Outreach Outcome: Left Message Name of ED Facility: [facility] Date of ED Discharge: 04/25/2025 Discharge Diagnosis: Other migraine without status migrainosus ED Chief Complaint: Headache Current Symptom Status: Medication Changes Reviewed: Medication Questions/Concerns: Follow-up PCP Scheduled: Follow-up Specialist Scheduled: Follow up Testing Scheduled: Patient Contacted Office Prior to ED Visit: Additional Comments: Left message for patient to return call. Left second message for patient to contact the office. Will await return call. [facility] Miscellaneous Notes* Telephone Encounter - Radha Marquis CST - 04/15/2025 11:23 AM EDT Received call from Caregiver, Marco Gomez. He stated that Insurance won't cover the 5% Lido Patches. They are asking for a new order/script to be faxed so they can use OTC 4% Lido Patches or Salonpasat his facility. * Telephone Encounter - BRUCE Servin - 04/15/2025 11:23 AM EDT Ok for 4%otc patches * Telephone Encounter - Ofelia Barrientos RN - 04/15/2025 11:23 AM EDT Order pending documented in this encounterMarietta Memorial Hospital09-25-2025 Telephone encounter Note* Telephone Encounter - Radha Marquis CST - 04/15/2025 11:23 AM EDT Received call from Caregiver, Marco Gomez. He stated that Insurance won't cover the 5% Lido Patches. They are asking for a new order/script to be faxed so they can use OTC 4% Lido Patches or Salonpasat his facility. [facility]09-25-2025 Telephone encounter Note* Telephone Encounter - BRUCE Servin - 04/15/2025 11:23 AM EDT Ok for 4%otc patches [facility]09-25-2025 Telephone encounter Note* Telephone Encounter - Ofelia Barrientos RN - 04/15/2025 11:23 AM EDT Order pending [facility] [id number] Evaluation + Plan note* Assessment & Plan Note - Rand Recinos DO - 04/11/2025 12:13 AM EDTAssociated Problem(s): Obesity, morbid ([facility]) Obesity is stable. Continue with Victoza 1.8 mg subcutaneously injected daily along with following a low-carbohydrate calorie controlled diet [facility] [id number] Evaluation + Plan note* Assessment & Plan Note - Rand Recinos DO - 04/11/2025 12:13 AM EDTAssociated Problem(s): Type 2 diabetes mellitus without complication, without long-term current useof insulin ([facility]) Diabetes is stable. Continue with Victoza 1.8 mg subcutaneous injection daily, along with metforminXR 500 mg twice daily [facility] [id number] Miscellaneous Notes* Assessment & Plan Note - Rand Recinos DO - 04/11/2025 12:13 AM EDTAssociated Problem(s): Obesity, morbid ([facility]) Obesity is stable. Continue with Victoza 1.8 mg subcutaneously injected daily along with following a low-carbohydrate calorie controlled diet * Assessment & Plan Note - Rand Recinos DO - 04/11/2025 12:13 AM EDT Associated Problem(s): Type 2 diabetes mellitus without complication, without long-term current useof insulin ([facility]) Diabetes is stable. Continue with Victoza 1.8 mg subcutaneous injection daily, along with metforminXR 500 mg twice daily * Assessment & Plan Note - Rand Recinos DO - 04/11/2025 12:12 AM EDT Associated Problem(s): Parkinson's disease ([facility]) Parkinson's disease stable continue with Cogentin 1 mg twice daily * Assessment & Plan Note - Rand Recinos DO - 04/11/2025 12:12 AM EDT Associated Problem(s): Seizure disorder ([facility]) Seizure disorder stable. Continue with divalproex sodium 500 mg twice daily, gabapentin 600 mg twice daily * Assessment & Plan Note - Rand Recinos DO - 04/11/2025 12:11 AM EDT Associated Problem(s): Schizoaffective disorder, bipolar type ([facility]) Schizoaffective disorder stable continue with divalproex 500 mg twice daily Seroquel 350 mg at bedtime, Invega 3 mg nightly and sertraline 100 mg nightly. documented in this encounterMarietta Memorial Hospital09-21-2025 Evaluation + Plan note* Assessment & Plan Note - Rand Recinos DO - 04/11/2025 12:12 AM EDT Associated Problem(s): Parkinson's disease ([facility]) Parkinson's disease stable continue with Cogentin 1 mg twice daily [facility]09-21-2025 Evaluation + Plan note* Assessment & Plan Note - Rand Recinos DO - 04/11/2025 12:12 AM EDTAssociated Problem(s): Seizure disorder ([facility]) Seizure disorder stable. Continue with divalproex sodium 500 mg twice daily, gabapentin 600 mg twice daily [facility]09-21-2025 Evaluation + Plan note* Assessment & Plan Note - Rand Recinos DO - 04/11/2025 12:11 AM EDTAssociated Problem(s): Schizoaffective disorder, bipolar type ([facility]) Schizoaffective disorder stable continue with divalproex 500 mg twice daily Seroquel 350 mg at bedtime, Invega 3 mg nightly and sertraline 100 mg nightly. [facility]09-16-2025 History of Present illness Narrative* Cinda Steve, SONIA-WALL CRANE OPERATOR - 04/06/2025 9:15 AM EDT [facility] [address] [place] [address] Patient: Laxmi Torres Sex: male : 1975 Age: 49 y.o. PCP: JUSTIN UNDERWOOD MD 04/06/2025 Laxmi Torres is here for a follow up for new onset neck, bilateral shoulder pain and hasarm numbness and tingling in right arm, right hand. Patient reports he was moving furniture and lifting heavy objects sometime last week and since then feels increased neck and shoulder pain along with feeling popping in his neck and shoulders. Chief Complaint Patient presents with Back Pain Shoulder Pain Neck Pain HPI: 09/23/20 Left L5S1 NRI 50% [...] stimulator placement with 100% relief that continues HIP: Physical therapy February 2025 with some decrease in symptoms Neck Pain This is a new problem. Episode onset: apporx Mar 29, 2025. The problem occurs constantly. The problem has been gradually worsening. The pain is associated with lifting a heavy object (moving furniture). The pain is present in the left side, midline and right side (radiates to shoulder blades, bilateral shoulders). The quality of the pain is described as stabbing, shooting, aching, cramping and burning. The pain is at a severity of 8/10. The pain is severe. Exacerbated by: turning head, looking up and down, lifting right arm, vaccuming. The pain is Same all the time. Stiffness is present In the morning, all day and at night. Associated symptoms include headaches (daily), numbness (RLE intermittently) and weakness (right arm and hand). Pertinent negatives include no chest pain or fever. Treatments tried: Methocarbamol, Ice, heat with minimal relief. The effect of pain on patient's ADLS: Moderate Impairment. Past Medical History: Diagnosis Date Abnormal gait 07/02/2011 Acute pancreatitis 08/12/2020 Allergic rhinitis Anxiety Autism Back problem Bipolar I disorder ([facility]) 01/17/2017 Chipped tooth upper molar chipped Chronic pain disorder Chronic sinusitis COVID-2019 Depression Developmental delay disorder Deviated nasal septum 07/30/2022 Diabetes mellitus, type 2 ([facility]) Disc displacement, lumbar 08/20/2019 DNS (deviated nasal septum) alcohol syndrome GERD (gastroesophageal reflux disease) Hemorrhoids without complication 08/12/2020 Hip pain, bilateral HL (hearing loss) Hyperlipidemia Hypersomnia Hypertension Hypokalemia Impulse control disorder in adult Injury of back Intellectual functioning disability 07/02/2011 Leukopenia 03/04/2023 Low back pain Lumbar post-laminectomy syndrome 08/06/2011 Migraine Mild oppositional defiant disorder with angry or [...] 09/23/2020 Performed by Titus Pritchett MD at [facility] EPIDURAL STEROID LUMBAR/SACRAL: Left L 5/1 Nroot Left 10/28/2020 Performed by Titus Pritchett MD at [facility] NERVE MEDIAL BRANCH: bilat L 1/2 / Bilateral 04/14/2021 Performed by Titus Pritchett MD at [facility] NERVE MEDIAL BRANCH: bilat L 1/2 _ 5/ Bilateral 03/03/2021 Performed by Titus Pritchett MD at [facility] SACROILIAC JOINT Bilateral 12/14/2022 Performed by Titus Pritchett MD at [facility] SACROILIAC JOINT Bilateral 11/03/2021 Performed by Titus Pritchett MD at [facility] SACROILIAC JOINT Bilateral 09/29/2021 Performed by Titus Pritchett MD at [facility] LUMBAR OR SACRAL EPIDURAL BLOCK WITH STEROIDS: L12 DANA N/A 09/25/2019 Performed by Titus Pritchett MD at [facility] LUMBAR OR SACRAL EPIDURAL BLOCK WITH STEROIDS: L12 DANA N/A 08/28/2019 Performed by Titus Pritchett MD at [facility] SPINE TRANSFORAMINAL: right L 1,2 Nroot Right 09/13/2023 Performed by Titus Pritchett MD at [facility] INSERTION PERMANENT STIMULATOR SPINAL CORD N/A 04/17/2024 Performed by Titus Pritchett MD at [facility] SURGERY INSERTION STIMULATOR SPINAL CORD- TRIAL N/A 02/21/2024 Performed by Titus Pritchett MD at [facility] NECK SURGERY Fusion C4-7 OPEN FUNCTIONAL RHINOPLASTY SEPTOPLASTY NOSE WITH REPAIR OF TURBINATE FRACTURE N/A 03/11/2023 Performed by Marlee Vazquez DO at [facility] RADIOFREQUENCY ABLATION SPINAL: left L 07/23 _ 11/19 Left 10/12/2022 Performed by Titus Pritchett MD at [facility] RADIOFREQUENCY ABLATION SPINAL: left L 07/23 _11/19 Left 06/23/2021 Performed by Titus Pritchett MD at [facility] RADIOFREQUENCY ABLATION SPINAL: left SI Left 12/01/2021 Performed by Titus Pritchett MD at [facility] RADIOFREQUENCY ABLATION SPINAL: right L 07/23 _ 11/19 Right 09/28/2022 Performed by Titus Pritchett MD at [facility] RADIOFREQUENCY ABLATION SPINAL: right L 07/23 _11/19 Right 06/05/2021 Performed by Titus Pritchett MD at [facility] RADIOFREQUENCY ABLATION SPINAL: right SI Right 12/15/2021 Performed by Titus Pritchett MD at [facility] REDUCTION TURBINATE Bilateral 03/11/2023 Performed by Marlee Vazquez DO at [facility] REVISION STIMULATOR SPINAL CORD N/A 08/14/2024 Performed by Titus Pritchett MD at [facility] Allergies Allergen Reactions Penicillins Hives Unknown reaction [...] packs/day: 0.50 Average packs/day: 0.3 packs/day for 2.7 years (0.9 ttl pk-yrs) Types: Cigarettes Start date: 2022 Smokeless tobacco: Never Vaping Use Vaping status: Some Days Substances: Nicotine, Flavoring Devices: Disposable Substance and Sexual Activity Alcohol use: Yes Comment: Occ. Drug use: No Sexual activity: Defer Other Topics Concern Caffeine Use Yes Social History Narrative Not on file Social Drivers of Health Financial Resource Strain: Low Risk (05/08/2023) Overall Financial Resource Strain (CARDIA) Difficulty of Paying Living Expenses: Not hard at all Food Insecurity: No Food Insecurity (04/06/2025) Hunger Screening Food Insecurity - Worry: Never True Food Insecurity - Inability: Never True Transportation Needs: No Transportation Needs (05/08/2023) PRAPARE - Transportation Lack of Transportation (Medical): No Lack of Transportation (Non-Medical): No Physical Activity: Not on file Stress: Not on file Social Connections: Not on file Interpersonal Safety: Unknown (10/10/2023) Received from [facility] Humiliation, Afraid, Rape, and Kick questionnaire Fear of Current or Ex-Partner: No Emotionally Abused: Not on file Physically Abused: Not on file Sexually Abused: Not on file Housing Instability: Low Risk (05/08/2023) Housing Instability Housing Instability: No Review of Systems Constitutional: Negative. Negative for appetite change, chills, diaphoresis, fatigue and fever. HENT: Negative. Eyes: Negative. Respiratory: Negative. Negative for cough and shortness of breath. Cardiovascular: Negative for chest pain and palpitations. Gastrointestinal: Negative. Endocrine: Negative. Genitourinary: Negative. Musculoskeletal: Positive for back pain. Allergic/Immunologic: Negative. Neurological: Positive for weakness (right arm and hand), numbness (RLE intermittently) and headaches (daily). Hematological: Negative. Psychiatric/Behavioral: Negative. Vital Signs: BP 113/86 (BP Site: Right Arm, BP Postition: Sitting) Pulse 78 Resp 20 Ht 176 cm (5' 9.29 ) Wt 100.2 kg (221 lb) BMI 32.36 kg/m Physical Exam: GENERAL - Healthy patient [...] during discussion, demonstrated appropriate cognitive reasoning and understandingof the medical condition by asking appropriate questions regarding the diagnosis and risks/benefits/alternatives of treatment modalities. No obvious deficits in memory, reasoning, or intellect. Cervical: SKIN - No rashes or bruising in the area of the patient s pain. LYMPH NODES - demonstrate no obvious enlargement. EXTREMITIES - Upper extremities are warm, with minimal edema and palpable pulses Tenderness to palpation noted in the cervical spine and paraspinal musculature. Pain is elicited with flexion, extension, and lateral rotation of the cervical spine. Range of motion is diminished with these motions due to pain. Facet palpation is noted to be somewhat tender but not concordant with the patient s normal pain complaints. STRENGTH - noted to be 5 out of 5 all muscle groups bilateral upper extremities including muscles involving shoulder flexion and abduction, elbow flexion and extension, as well as wrist flexion and extension and intrinsic muscles of the hand. No notable atrophy, fasciculations or spasm. SENSORY - No notable sensory deficits in the bilateral upper extremities to touch or pinprick in all dermatomal distributions with exception to increased sensation in the Bilateral Right greater thanLeft C5, C6 dermatomal distribution(s). Spurlings sign is Positive Assessment/Treatment Plan: Laxmi was seen today for back pain, shoulder pain and neck pain. Diagnoses and all orders for this visit: Cervical post-laminectomy syndrome - MR cervical spine without contrast; Future - Ambulatory referral to Physical Therapy; Future - diazePAM (VALIUM) 5 mg tablet; Take 1 tablet (5 mg total) by mouth in the morning. Neck pain and Right Shoulder Physical/Aquatic Therapy - It is felt that the patient will benefit from a course of physical therapy focusing on the above mentioned diagnosis. We will recommend that the physical therapist fully evaluate and treat at their discretion considering the modalities that are most useful for the condition being treated. This may i nclude modalities of comfort including moist heat, ultrasound, [...] clinic updated to the patient s progress. Cervical spine MRI - Valium 5 mg pre-MRI for anxiety and Claustrophobia It is felt that additional diagnostic testing is necessary to further evaluate the patients currentpain pathology. For this reason, we will order additional imaging noted above. It is hopeful that this study will identify a significant pain generator that will be amenable to therapy. It is felt that this modality is necessary due to the severity and chronicity of symptoms and physical exam findings combined with the lack of recent imaging of the area. An MRI is specifically felt to be necessary due to the physical exam findings noted above and the patient s description of refractory pain in a neuropathic distribution that is not relieved by change in body position and interferes with the patient s activities of daily living Follow up after MRI The medications prescribed have been reviewed for [...] monitoring for toxicity We do not currently prescribeany controlled substance from this practice. The spine model was demonstrated and Xray and MRI was reviewed and used to explain the condition. Chronic conditions not treated during this visit that affected my overall medical decision making: Comorbidity- Diabetes The patient has a history of diabetes mellitus currently managed with medications. This will need to be considered prior to any procedure that would require the injection of steroid in that the patient may experience a transient increase in glucose as a result. Additional consideration will need callie given to timing the procedure early in [...] the patient prior to any procedure. Comorbidity- Anxiety The patient describes a significant issue with anxiety. Although treatment is helpful with this regard, the patient is likely need special accommodation due to this condition. For this reason, necessary procedures will likely need to be performed under sedation to decrease procedural anxiety. OARRS: Reviewed. Scribe Statement: Abril Cote CNA, scribed for and in the presence of CUBA HOOKER who performedthe above service. Abril Durán CNA 04/06/25 1003 Abril Durán CNA 04/06/25 1004 CUBA Hooker 04/06/25 1009 documented in this encounterKettering Health DaytonGHash.[place] [facility] [id number] Miscellaneous Notes* Telephone Encounter - Vanessa Martinez - 03/26/2025 3:17 PM EDT Medication Name: topiramate (TOPAMAX) Frequency/Dose: 50 mg - 3 tabs (150 mg) - nightly Side Effects: lose of taste, nausea, vomiting, Patient's PCP feels it is related to the recent increase in this medication When did the side effects begin: 2 weeks ago Last dose: last night 03/25/2025 Received call from: patient Callback number: [phone] * Telephone Encounter - Vish Sanchez PA-C - 03/26/2025 3:17 PM EDT Reduce Topiramate back to 50 mg, 2 tabs (100 mg) HS and see if symptoms improve. - [facility] * Telephone Encounter - Trina Keys RN - 03/26/2025 3:17 PM EDT Attempted to reach patient. VM left requesting a call back. Please inform of Jacques's recommendations when call is returned. * Telephone Encounter - Ricarda Bonds - 03/26/2025 3:17 PM EDT Caregiver, Marco, called in regards to the previous encounters. [employer] advised of the reduction of medication topiramate (TOPAMAX) 50 mg tablet. Marco voiced understanding. documented in this encounterKettering Health DaytonGHash.[place] [facility] [id number] Telephone encounter Note* Telephone Encounter - Vanessa Martinez - 03/26/2025 3:17 PM EDT Medication Name: topiramate (TOPAMAX) Frequency/Dose: 50 mg - 3 tabs (150 mg) - nightly Side Effects: lose of taste, nausea, vomiting, Patient's PCP feels it is related to the recent increase in this medication When did the side effects begin: 2 weeks ago Last dose: last night 03/25/2025 Received call from: patient Callback number: [phone] [facility] [employer] [id number] Telephone encounter Note* Telephone Encounter - Vish Sanchez PA-C - 03/26/2025 3:17 PM EDT Reduce Topiramate back to 50 mg, 2 tabs (100 mg) HS and see if symptoms improve. - [facility]09-05-2025 Telephone encounter Note* Telephone Encounter - Trina Keys RN - 03/26/2025 3:17 PM EDT Attempted to reach patient. VM left requesting a call back. Please inform of Jacques's recommendations when call is returned. [facility]09-05-2025 Telephone encounter Note* Telephone Encounter - Ricarda Bonds - 03/26/2025 3:17 PM EDT Caregiver, Marco, called in regards to the previous encounters. [employer] advised of the reduction of medication topiramate (TOPAMAX) 50 mg tablet. Marco voiced understanding. [facility]09-04-2025 History of Present illness Narrative* Rand Recinos DO - 03/25/2025 1:30 PM EDT Subjective SUBJECTIVE: Patient ID: Laxmi Torres is a 49 y.o. male who presents for a Medicare Annual Wellness exam. HPI The following portions of the patient's history were reviewed and updated as appropriate: allergies, current medications, past family history, past medical history, past social history, past surgicalhistory and problem list. AWV FLOWSHEET : Lifestyle Assessment Do you smoke or use smokeless tobacco?: (!) Yes If you smoke or use smokeless tobacco, are you ready to quit?: (!) No Are you exposed to secondhand smoke?: No On average, how many drinks of alcohol do you consume in a week?: None Do you exercise for 30 or more minutes on average at least 3 days a week?: (!) Never Do you have any tooth, denture, or oral problems?: No Do you snore or has anyone told you that you snore?: (!) Yes Do you try to eat a balanced diet?: Yes Do you experience leakage of urine, also known as urinary incontinence?: Never Do you have difficulty bathing?: No Do you have difficulty dressing?: No Do you have difficulty grooming?: No Do you have difficulty eating?: No Do you have difficulty getting out of a chair?: No Do you have difficulty walking?: No Do you have difficulty using the toilet?: No Do you have difficulty doing laundry?: No Do you have difficulty with housekeeping?: No Do you have difficulty preparing a meal?: (!) Yes Do you have difficulty shopping?: (!) Yes Do you have difficulty using transportation?: No Do you have difficulty paying bills?: No Do you have difficulty managing finances?: (!) Yes Fall Risk Fall Risk Assessment Completed?: Yes Have you fallen in the past year?: (!) Yes How many times?: 1 Were you injured?: No Are you worried about falling?: No Do you feel unsteady when standing or walking?: (!) Yes Risk Stratification: Moderate Risk Depression Screening Little interest or pleasure in doing things: (!) Several days Feeling down, depressed, or hopeless: Not at all Trouble falling or staying asleep, or sleeping too much: (!) Nearly every day Feeling tired or having little energy: (!) Several days Poor appetite or overeating: (!) More than half the days Feeling bad about yourself - or that [...] pain on average in the past week?: 3 What number best describes how, during the past week, pain has interfered with your enjoyment of life?: 0 - Does not interfere What number best describes how, during the past week, pain has interfered with your general activity?: 4 PEG Pain Total Score: 2.33 Safety Assessment Do you have throw rugs on the floor?: No Do you feel safe at your home?: Yes Do you feel unsteady when walking?: (!) Yes Are you having difficulty with driving?: N/A Do you have trouble seeing?: No Do you use a bath bar/seat?: No Do you use a raised toilet seat?: No Do you use a cane?: No Do you use a walker?: No Do you use a wheelchair?: No (patient put comment spinal cord stimulator ) Hearing Assessment Do you strain or struggle [...] Do you have a durable power of assistant city attorney?: Yes Cognitive Screening Do you have trouble remembering or recalling facts or events?: (!) Yes Do family members or caregivers report that you have difficulty remembering things?: (!) Yes Clock Drawing Test: Abnormal mini mental exam deferred REVIEW OF SYSTEMS: Review of Systems Constitutional: Positive for appetite change (has been noticing change in appetite. He states that certain foods taste different like pop. He states that will have change in taste in food and decreased appetite.). Eyes: Positive for visual disturbance (Describes as blurred vision with headaches). Gastrointestinal: Negative for blood in stool, constipation and diarrhea. Neurological: Positive for headaches (Medication topiramate started in December and increased to 150 mgdaily in 2024. He states that headaches better. He does have rizatriptan for abortive agent forheadache). Objective PHYSICAL EXAMINATION: Vitals: 03/25/25 1339 BP: 112/70 BP Site: Left Arm BP Postition: Sitting Pulse: 97 Temp: 36.5 C (97.7 F) TempSrc: Oral SpO2: 95% Weight: 99.4 kg (219 lb 3.2 oz) Height: 176 cm (5' 9.29 ) Physical Exam Vitals reviewed. Constitutional: General: He is not in acute distress. Appearance: He is not ill-appearing or toxic-appearing. Cardiovascular: Rate and Rhythm: Normal rate and regular rhythm. Heart sounds: No murmur heard. Pulmonary: Effort: Pulmonary effort is normal. No respiratory distress. Breath sounds: Normal breath sounds. No wheezing, rhonchi or rales. Abdominal: General: Bowel sounds are normal. There is no distension. Palpations: Abdomen is soft. Musculoskeletal: Right lower leg: No edema. Left lower leg: No edema. Skin: Capillary Refill: Capillary refill takes less than 2 seconds. Neurological: Mental Status: He is alert. Cranial Nerves: No cranial nerve deficit. Deep Tendon Reflexes: Reflexes normal. Assessment/Plan ASSESSMENT/PLAN Laxmi was seen today for medicare annual wellness. Diagnoses and all orders for this visit: Medicare annual wellness visit, subsequent Parkinson's disease ([facility]) Schizoaffective disorder, bipolar type ([facility]) Seizure disorder ([facility]) Obesity, morbid ([facility]) Type 2 diabetes mellitus without complication, without long-term current use of insulin ([facility]) - Hemoglobin A1c; Future - Basic Metabolic Panel; Future - Lipid panel; Future Hyperlipidemia, unspecified hyperlipidemia type - Lipid panel; Future No follow-ups on file. Follow up: 3-4 months DM follow up - Rand Recinos DO 04/11/25 12:14 AM documented in this encounterMarietta [facility] Hospital09-03-2025 History of Present illness Narrative* Myla Rm PA-C - 03/24/2025 12:30 PM EDT [facility] [address] [place] [address] Patient: Laxmi Torres Sex: male : 1975 Age: 49 y.o. PCP: JUSTIN UNDERWOOD MD 03/24/2025 Laxmi Torres is here for a(n) 6-8 follow up. [facility]. He would like to continue as he feels like his symptoms are lessening. He states that the SCS battery is still causing discomfort at the site with sittingonly. He does report that his back pain remains under control. Chief Complaint Patient presents with Back Pain Hip Pain HPI: 09/23/20 Left L5S1 NRI 50% [...] stimulator placement with 100% relief that continues HIP: Physical therapy February 2025 with some decrease in symptoms Back Pain This is a chronic (2016 (or before per privacy attorney)) problem. The current episode started more than 1year ago. The problem occurs rarely. The problem has been resolved since onset. The pain is presentin the lumbar spine, sacro-iliac and gluteal (no pain). The pain does not radiate. The pain is at aseverity of 0/10. The patient is experiencing no pain. The pain is The same all the time (no pain all the time). Exacerbated by: tolerating all activity post SCS. Stiffness is present: n/a. Associated symptoms include numbness (RLE intermittently). Pertinent negatives include no bladder incontinence, bowel incontinence, chest pain, fever, leg pain or weakness. Risk factors include [...] of back & leg pain. ) relief. Hip Pain The incident occurred more than 1 week ago. There was no injury mechanism. The pain is present in the right hip (aches down RLE). The quality of the pain is described as aching. The pain is at a severity of 7/10. The pain is moderate. The pain has been Fluctuating since onset. Associated symptoms include numbness (RLE intermittently). He reports no foreign bodies present. The symptoms are aggravated by weight bearing and movement (walking and vacumming). He has tried rest, NSAIDs and acetaminophen (PT) for the symptoms. The effect of pain on patient's ADLS: Moderate Impairment. Past Medical History: Diagnosis Date Abnormal gait 07/02/2011 Acute pancreatitis 08/12/2020 Allergic rhinitis Anxiety Autism Back problem Bipolar I disorder ([facility]) 01/17/2017 Chipped tooth upper molar chipped Chronic pain disorder Chronic sinusitis COVID-2019 Depression Developmental delay disorder Deviated nasal septum 07/30/2022 Diabetes mellitus, type 2 ([facility]) Disc displacement, lumbar 08/20/2019 DNS (deviated nasal septum) alcohol syndrome GERD (gastroesophageal reflux disease) Hemorrhoids without complication 08/12/2020 Hip pain, bilateral Hyperlipidemia Hypersomnia Hypertension Hypokalemia Impulse control disorder in adult Injury of back Intellectual functioning disability 07/02/2011 Leukopenia 03/04/2023 Low back pain Lumbar post-laminectomy syndrome 08/06/2011 Mild oppositional defiant disorder with angry or irritable mood Nasal congestion Nasal turbinate hypertrophy Neck pain Bogota's syndrome Obstructive sleep apnea syndrome 07/02/2011 Seizure disorder ([facility]) states in childhood, denies seizures as an adult Sleep apnea Smoker Spinal stenosis of lumbar region 08/2023 Tachycardia 08/12/2020 Past Surgical History: Procedure Laterality Date BACK SURGERY CHOLECYSTECTOMY INJECTION BLOCK EPIDURAL STEROID LUMBAR/SACRAL: left L 5,1 nroot Left 09/23/2020 Performed by Titus Pritchtet MD at [facility] INJECTION BLOCK EPIDURAL STEROID LUMBAR/SACRAL: Left L 5/1 Nroot Left 10/28/2020 Performed by Titus Pritchett MD at [facility] INJECTION BLOCK NERVE MEDIAL BRANCH: bilat L 1/2 / Bilateral 04/14/2021 Performed by Titus Pritchett MD at [facility] INJECTION BLOCK NERVE MEDIAL BRANCH: bilat L 1/2 _ 5/ Bilateral 03/03/2021 Performed by Titus Pritchett MD at [facility] INJECTION BLOCK SACROILIAC JOINT Bilateral 12/14/2022 Performed by Titus Pritchett MD at [facility] INJECTION BLOCK SACROILIAC JOINT Bilateral 11/03/2021 Performed by Titus Pritchett MD at [facility] INJECTION BLOCK SACROILIAC JOINT Bilateral 09/29/2021 Performed by Titus Pritchett MD at [facility] INJECTION LUMBAR OR SACRAL EPIDURAL BLOCK WITH STEROIDS: L12 DANA N/A 09/25/2019 Performed by Titus Pritchett MD at [facility] LUMBAR OR SACRAL EPIDURAL BLOCK WITH STEROIDS: L12 DANA N/A 08/28/2019 Performed by Titus Pritchett MD at [facility] INJECTION SPINE TRANSFORAMINAL: right L 1,2 Nroot Right 09/13/2023 Performed by Titus Pritchett MD at [facility] INSERTION PERMANENT STIMULATOR SPINAL CORD N/A 04/17/2024 Performed by Titus Pritchett MD at [facility] INSERTION STIMULATOR SPINAL CORD- TRIAL N/A 02/21/2024 Performed by Titus Pritchett MD at [facility] NECK SURGERY Fusion C4-7 OPEN FUNCTIONAL RHINOPLASTY SEPTOPLASTY NOSE WITH REPAIR OF TURBINATE FRACTURE N/A 03/11/2023 Performed by Marlee Vazquez DO at [facility] RADIOFREQUENCY ABLATION SPINAL: left L /2 _ 11/19 Left 10/12/2022 Performed by Titus Pritchett MD at [facility] RADIOFREQUENCY ABLATION SPINAL: left L /2 _11/19 Left 06/23/2021 Performed by Titus Pritchett MD at [facility] RADIOFREQUENCY ABLATION SPINAL: left SI Left 12/01/2021 Performed by Titus Pritchett MD at [facility] RADIOFREQUENCY ABLATION SPINAL: right L /2 _ 11/19 Right 09/28/2022 Performed by Titus Pritchett MD at [facility] RADIOFREQUENCY ABLATION SPINAL: right L /2 _11/19 Right 06/05/2021 Performed by Titus Pritchett MD at [facility] RADIOFREQUENCY ABLATION SPINAL: right SI Right 12/15/2021 Performed by Titus Pritchett MD at [facility] REDUCTION TURBINATE Bilateral 03/11/2023 Performed by Marlee Vazquez DO at [facility] REVISION STIMULATOR SPINAL CORD N/A 08/14/2024 Performed by Titus Pritchett MD at [facility] Allergies Allergen Reactions Penicillins Hives Unknown reaction [...] packs/day: 0.50 Average packs/day: 0.3 packs/day for 2.7 years (0.8 ttl pk-yrs) Types: Cigarettes Start date: 2022 Smokeless tobacco: Never Vaping Use Vaping status: Some Days Substances: Nicotine, Flavoring Substance and Sexual Activity Alcohol use: Yes Comment: Occ. Drug use: No Sexual activity: Defer Other Topics Concern Caffeine Use Yes Social History Narrative Not on file Social Drivers of Health Financial Resource Strain: Low Risk (05/08/2023) Overall Financial Resource Strain (CARDIA) Difficulty of Paying Living Expenses: Not hard at all Food Insecurity: No Food Insecurity (03/24/2025) Hunger Screening Food Insecurity - Worry: Never True Food Insecurity - Inability: Never True Transportation Needs: No Transportation Needs (05/08/2023) PRAPARE - Transportation Lack of Transportation (Medical): No Lack of Transportation (Non-Medical): No Physical Activity: Not on file Stress: Not on file Social Connections: Not on file Interpersonal Safety: Unknown (10/10/2023) Received from [facility] Humiliation, Afraid, Rape, and Kick questionnaire [...] incontinence. Musculoskeletal: Positive for back pain. Skin: Lac to right side of nose Neurological: Positive for numbness (RLE intermittently). Negative for weakness. Psychiatric/Behavioral: Negative. Vital Signs: BP 104/80 Pulse 86 Resp 16 Ht 180.3 cm (5' 11 ) Wt 97.5 kg (215 lb) SpO2 97% BMI 29.99 kg/m Physical Exam: GENERAL - Healthy patient [...] during discussion, demonstrated appropriate cognitive reasoning and understandingof the medical condition by asking appropriate questions [...] spine and paraspinal musculature. Pain is elicited withflexion, extension, and lateral rotation of the lumbar [...] Leg Raise is Positive on the Right Tenderness to palpation noted over the Right Greater Trochanteric Bursa which is consistent with some of the patient s normal pain. Gait is normal. Assessment/Treatment Plan: Laxmi was seen today for back pain and hip pain. Diagnoses and all orders for this visit: Lumbar post-laminectomy syndrome Trochanteric bursitis of right hip Other orders - lidocaine (LIDODERM) 5 %; Place 1 patch on the skin daily. Remove & Discard patch within 12 hours or as needed for pain on the right hip. No more than one patch at time Lidocaine 5% patch on 12 hours per day With Regard to medication management, it is felt that the patient would benefit from the changes mentioned above. This should provide symptomatic pain relief as part of the comprehensive pain management strategy outlined. Risks, Benefits, Side effects, and possible interactions of these medicationswere reviewed and the medication agreement has been discussed, agreed upon, and signed. The patientunderstands compliance concerns and the requirement of pill counts and drug screens while taking medications prescribed by this clinic. Continue Physical/Aquatic Therapy - It is felt that the patient will benefit from a course of physical therapy focusing on the above mentioned diagnosis. We will recommend that the physical therapist fully evaluate and treat at their discretion considering the modalities that are most useful for the condition being treated. This may i nclude modalities of comfort including moist heat, ultrasound, [...] clinic updated to the patient s progress. Continue Ice to painful area The patient is advised to apply ice or cold packs intermittently as needed to relieve pain. Follow up 2 months The medications prescribed have been reviewed for [...] monitoring for toxicity We do not currently prescribeany controlled substance from this practice. At this [...] used to explain the condition. OARRS: Reviewed. Scribe Statement: IAbril CNA, scribed for and in the presence of MYLA RM PA-C who performed the above service. Abril Durán CNA 03/24/25 1328 Myla Rm PA-C 03/24/25 1330 documented in this encounterMari[facility]08-14-2025 History of Present illness Narrative* Bonny Gal - 03/04/2025 3:02 PM EDT When was the last Refill? Unknown Is this medication Historical? Yes, added to EMR in February 2023 Name of preferred Pharmacy? [facility] [place], [place] When was the last OV with provider? 12/03/24 When is the next scheduled visit? 03/12/25 Pended diabetic pen needles for approval. Thanks, Bonny Santo RN [facility] Nurse [employer] [phone] documented in this encounterMarietta [facility] Hospital07-29-2025 Miscellaneous Notes* Telephone Encounter - Tegan Galarza CMA - 02/16/2025 4:09 PM EDT Notification received from [employer] for the medication Rizatriptan. The drug is on [employer] formulary, however, there is a quantity limit and it will not continued to be covered. Notification has been scanned in media. documented in this encounterMarietta [facility] Hospital07-29-2025 Telephone encounter Note* Telephone Encounter - Tegan Galarza CMA - 02/16/2025 4:09 PM EDT Notification received from [employer] for the medication Rizatriptan. The drug is on [employer] formulary, however, there is a quantity limit and it will not continued to be covered. Notification has been scanned in media. [facility]07-29-2025 History of Present illness Narrative* Bonny Santo - 02/16/2025 1:43 PM EDT When was the last Refill? 01/13/25 Is this medication Historical? Paulina of preferred Pharmacy? [facility] in [place] When was the last OV with provider? 12/03/24 When is the next scheduled visit? 03/12/25 Gabapentin pended for approval. Thank you, [facility] Cement Sack Breaker [phone] documented in this encounterMarietta [facility] Hospital07-29-2025 Miscellaneous Notes* Telephone Encounter - Manda Johnson LPN - 02/16/2025 11:09 AM EDT Received E-Mail from Katherine sahu [facility] to clarify patients PAP orders: We are working on an order we received for Laxmi Torres ( 1975). The order is written for APAP 5-20 cmH2O. However, the CPAP titration study from 12/19/2018 shows that he was titrated to BIPAP 15/11 cmH2O, and according to the Medicare same and similar files, he received a BIPAP machine from the [facility] in February 2019. Is this patient a restart with a CPAP, or should the Rx have been written for a BIPAP instead? Thank you! SARAH updated and orders clarified and faxed to Katherine at [facility]. documented in this encounterMarietta [facility] Hospital07-29-2025 Telephone encounter Note* Telephone Encounter - Manda Johnson LPN - 02/16/2025 11:09 AM EDT Received E-Mail from Katherine sahu [facility] to clarify patients PAP orders: We are working on an order we received for Laxmi Torres ( 1975). The order is written for APAP 5-20 cmH2O. However, the CPAP titration study from 12/19/2018 shows that he was titrated to BIPAP 15/11 cmH2O, and according to the Medicare same and similar files, he received a BIPAP machine from the [facility] in February 2019. Is this patient a restart with a CPAP, or should the Rx have been written for a BIPAP instead? Thank you! SARAH updated and orders clarified and faxed to Katherine at [facility]. [facility]07-28[facility] Miscellaneous Notes* Telephone Encounter - Bernie Juan CNA - 02/15/2025 10:59 AM EDT [facility] called to inform provider the oral Fluconazole which interacts with Seroquel. Theyrecommend to check an EKG for QT prolongation. documented in this encounterMarietta Memorial Hospital07-28-2025 Telephone encounter Note* Telephone Encounter - Bernie Juan CNA - 02/15/2025 10:59 AM EDT [facility] called to inform provider the oral Fluconazole which interacts with Seroquel. Theyrecommend to check an EKG for QT prolongation. [facility]07[facility] History of Present illness Narrative* Bonny Santo - 02/11/2025 4:07 PM EDT When was the last Refill? 09/07/24 Is this medication Historical? Paulina of preferred Pharmacy? [facility] in [place] When was the last OV with provider? 12/03/24 When is the next scheduled visit? 03/12/25 Flonase pended for approval Thanks, Bonny Santo RN [facility] Medicine Chronic Care Nurse Cement Sack Breaker [phone] documented in this encounterMarietta Memorial Hospital07-22-2025 History of Present illness Narrative* Vish Sanchez PA-C - 02/09/2025 9:30 AM EDT [facility] Neurology Office Note 02/08/2025 2:40 PM Patient info: Laxmi Torres is a 49 y.o. male Account No.: [id number] Acct: : 1975 PCP: JUSTIN UNDERWOOD MD Chief Complaint: Patient, 49 year old male, presents today for follow up Neurological evaluation regarding migraines. Last seen in the office on 12/09/24 Laxmi is present in the office today with a member of his senior care. Interval Hx: Last office visit (12/09/24) started Topiramate with titration to 50 mg, 2 tabs (100 mg) HS for migraine prevention. Also, increased Sumatriptan to 100 mg +/- Zofran 4 mg for abortive/symptomatic migraine relief. ER on 01/24 for acute migraine treatment; Sumatriptan 100 mg was ineffective for relief. Seems to be getting ALEMAN multiple times per week. Periodic blurred vision, sometimes with ALEMAN and sometimes without. Denies loss of vision or diplopia. Labs 01/22/25: CMP showed a normal AST and ALT Current preventative ALEMAN/migraine medication: Depakote, Gabapentin, Metoprolol, Topiramate Preventative med/s previously tried include: Preventative med/s not indicated include: Current abortive/symptomatic relief ALEMAN/migraine medication: Sumatriptan Abortive/Symptomatic relief med/s previously tried include: otc analgesics Abortive/Symptomatic relief med/s not indicated include: Previous Studies: 11/20/20: CT Head without contrast - No acute intracranial abnormality Prior Hx: Initial Consultation 12/09/24 Headache Hx: Onset of headaches was some time ago. Headache Characteristics: - Current Frequency: often (unclear) - Timing: onset varies - Duration: several hours - Location: holocephalic - Quality: pounding, pressure, and sharp - Intensity: ranges from moderate-severe - Aura: () - Associated sxs.: dizziness, photophobia, nausea, blurred vision - Autonomic sxs.: No associated lacrimation, asymmetric pupil dilation/constriction, scleral injection, ptosis, lateralized nasal congestion, or lateralized forehead sweating - Complicated sxs.: No associated loss of consciousness, confusional episodes/delirium, dysarthria,aphasia, paresthesias, or focal/lateralized weakness Contributing Factors: (-) hx of significant head injury/trauma: (-) hx of YARD CRANE OPERATOR infection: (-) hx of stroke or cerebrovascular malformation: (-) hx of intracranial mass/tumor/cyst/malformation: (+) hx of anxiety/depression/mood disorder: hx mood disorder Family Hx: (+) known family member/s with hx of recurrent ALEMAN/migraines: brother (-) known family member/s with hx of cerebral aneurysm: (-) known family member/s with hx of intracranial mass/tumor/cyst/malformation: Difficulty with gait or recurrent falls: none Laxmi does not wear corrective eye lenses. Most recent eye exam was some time ago. Past Medical Hx: See EMR Surgical Hx: See EMR Allergies: See EMR Review of Systems: Constitutional: Negative for fever, chills, sweats, or unintentional weight loss Eyes: Negative HENT: Negative Cardiovascular: Negative for chest pain and palpitations Respiratory: Negative for cough and shortness of breath Gastrointestinal: Negative for nausea, vomiting, abdominal pain and diarrhea Genitourinary: Negative for dysuria, urgency, frequency, or hematuria Musculoskeletal: Negative for myalgias or joint swelling Skin: Negative for skin rash Neurological: - as noted in the HPI Psychiatric/Behavioral: Negative Endocrine: Negative Hem/Onc: Negative Allergy/immunology: Negative The remainder of ROS is negative Vitals: BP: 125/80 HR: 92 Weight: 100.7 kg Physical Exam: General: well groomed, appears stated age Neurological Exam: The patient is awake, alert, and attentive Speech and language are normal Normal affect, with chronically reduced orientation and cognition EOMI, PERRL, No gross visual field deficits Face is symmetric, Tongue protrudes midline Palate rises symmetrically with uvula midline Shoulder shrug is strong bilaterally Nose to finger testing is without dysmetria Upper Extremity Drift is (-) Fine motor skills are approximately equal in each hand Tremor: (-) Sensation is intact and symmetric in the extremities bilaterally DTR's are 2+ throughout Herron's sign (-) bilaterally Strength throughout the Upper Extremities is 5/5 Strength throughout the Lower Extremities is 5/5 Muscle Tone throughout the extremities is normal Romberg is (-) Gait is steady with normal base, normal stride and bilateral arm swing ASSESSMENT: Laxmi is a 49 year old right hand dominant male with a complex medical hx who gets frequent migraines without aura, and recently has been experiencing vision changes. PLAN: Will order a Brain MRI with and without contrast to assess for intracranial pathology Increase Topiramate to 50 mg, 3 tabs (150 mg) HS for ALEMAN/migraine prevention Discontinue Sumatriptan secondary to ineffectiveness and start Rizatriptan 10 mg +/- Zofran ODT 4 mg for abortive/symptomatic migraine relief ALEMAN log is recommended Identification and avoidance of personal ALEMAN/migraine triggers discussed Trying to stay on a regular sleep and eating schedule, staying well hydrated, and working on stressmanagement to help reduce ALEMAN/migraine frequency discussed Follow up in the office in 3 months Electronically Signed by: Vish Sanchez PA-C 02/09/25 1442 documented in this encounterMarietta Memorial Hospital07-21-2025 History of Present illness Narrative* BRUCE Laws - 02/08/2025 2:50 PM EDT Images from the original note were not included. Follow up Diagnosis: Pityrosporum Folliculitis Location: back Last visit: 1 year ago Symptoms: red, bumpy, itchy, burning, bleeding, uncomfortable Status: flaring Treatments tried and failed: Diflucan 100mg once daily x 14 days (was effective in the past), Ketoconazole shampoo (treatments were effective) Current treatment: washing with Head & Shoulders soap All pertinent medical history, medications, and allergies were reviewed. General Exam: alert, oriented to person, place, and time, normal affect, well appearing, accompanied by caregiver A focused exam completed based on patient reported problems, see below: Skin Exam 1. PITYROSPORUM FOLLICULITIS Torso - Posterior (Back) Erythematous papules and pustules around hair follicles, flaring today (see photo) As patient is flaring today, plan to re-start Diflucan 100mg once a day x 14 days and Ketoconazole shampoo. A refill of the Diflucan was also given for patient to take if he feels not improved enoughafter first course. Instructed patient to hold Simvastatin while taking the Diflucan. Explained that PIH will take a while to fade after treating. Plan to follow up in a year as patient seems to flare this time of year Related Medications fluconazole (Diflucan) 100 MG tablet Take 1 tablet once a day x 14 days. Hold the Simvastain while taking Diflucan ketoconazole (NIZOral) 2 % shampoo Lather on body, leave on 5 min before rinsing Next Visit: 1 year documented in this encounterUniversity of Missouri Children's [id number] Miscellaneous Notes* Telephone Encounter - Manda Johnson LPN - 02/01/2025 4:51 PM EDT Auto PAP 5-20 and supply order, demographics, recent chart notes and results of sleep studies from 2019 faxed to [facility]. documented in this encounterMarietta [facility] Hospital07-14-2025 Telephone encounter Note* Telephone Encounter - Manda Johnson LPN - 02/01/2025 4:51 PM EDT Auto PAP 5-20 and supply order, demographics, recent chart notes and results of sleep studies from 2019 faxed to [facility]. [facility]07-[facility] History of Present illness Narrative* Lissett Keller APRN-WALL CRANE OPERATOR - 01/29/2025 11:00 AM EDT Chief Complaint: Laxmi Torres is a 49 y.o. male present for initial visit regarding MARK. HPI Patient is here today with his caregiver. Patient was diagnosed with sleep apnea back in 2019. The patient reports he is having excessive daytime sleepiness, am fatigue, loud snoring, difficultyinitiating and maintaining sleep, vivid dreams, nocturia x1-2 times a night, toss and turning and witnessed apnea. he denies having cataplexy. Denies having any parasomnias. Denies am ALEMAN, grinding teeth and dry mouth/sore throat. Bedtime is unknown and he reports his awaken time is 9 AM. Sleep Onset: unknown. He wakes up spontaneously unknown times per night. Napping: everyday, 1-2 hours. He reports this has been going on for a number of years now and is getting worse. Reports having family history of MARK, Father. He does drink 4-6 caffeinated beverages a day. he reports smoking 0.75 PPD, rosendo ent is unsure of when he started smoking. He denies any dyspnea, fevers, chills, chest pain or hemoptysis. He is unemployed. Reports no pets at home. Sleep in a recliner due to back pain. Has a stimulator in his back. Patient has [id number] caregivers. Patient takes his trazodone and Seroquel around 7 or 8:00 p.m.. Patient does report feeling tired after taking these medications. Discussed with patient on good sleep hygiene practices. ETOH: occasional Marijuana: none Sleep Medications: trazodone, Seroquel RLS: mild Exercise: nothing Sleep study results: 09/12/2018 PSG: AHI 42.7, REM AHI 16.8, Min SpO2 83%, weight 250 lb 12/19/2018 titration study: Weight 250 lb, recommended BiPAP 15/11 cm H2O EPWORTH SLEEPINESS SCALE Sitting and Reading: Never Watching TV: (!) High Chance Sitting inactive in a public place (theater, meeting): Never As a passenger in a car for an hour without a break: Never Lying down in the afternoon to rest: (!) High Chance Sitting and talking to someone: Never Sitting quietly after lunch (without alcohol): Never In a car, while stopped for a few minutes in traffic: Never Total: 6 OARRS REVIEWED Reviewed: no PMH PERTINENT HISTORY His pertinent medical history includes Past Medical History: Diagnosis Date Abnormal gait 07/02/2011 Acute pancreatitis 08/12/2020 Allergic rhinitis Anxiety Autism Back problem Bipolar I disorder ([facility]) 01/17/2017 Chipped tooth upper molar chipped Chronic pain disorder Chronic sinusitis COVID-19 2019 Depression Developmental delay disorder Deviated nasal septum 07/30/2022 Diabetes mellitus, type 2 ([facility]) Disc displacement, lumbar 08/20/2019 DNS (deviated nasal septum) alcohol syndrome GERD (gastroesophageal reflux disease) Hemorrhoids without complication 08/12/2020 Hip pain, bilateral Hyperlipidemia Hypersomnia Hypertension Hypokalemia Impulse control disorder in adult Injury of back Intellectual functioning disability 07/02/2011 Leukopenia 03/04/2023 Low back pain Lumbar post-laminectomy syndrome 08/06/2011 Mild oppositional defiant disorder with angry or irritable mood Nasal congestion Nasal turbinate hypertrophy Neck pain Bogota's syndrome Obstructive sleep apnea syndrome 07/02/2011 Seizure disorder ([facility]) states in childhood, denies seizures as an adult Sleep apnea Smoker Spinal stenosis of lumbar region 08/2023 Tachycardia 08/12/2020 CURRENT MEDICATIONS Reviewed with patient. Current Outpatient Medications: acetaminophen (TYLENOL EXTRA STRENGTH) 500 mg tablet, Take 2 tablets (1,000 mg total) by mouth every 6 (six) hours as needed for pain., Disp: 30 tablet, Rfl: 0 albuterol (PROVENTIL HFA;VENTOLIN HFA) 90 mcg/actuation inhaler, Inhale 2 puffs every 6 (six) hoursas needed for wheezing., Disp: 18 g, Rfl: 0 aspirin 81 mg, Take 1 tablet (81 mg total) by mouth in the morning. Hold 1 week prior to surgery scheduled on 03/11/2023 per cardiology., Disp: 90 tablet, Rfl: 2 BD AUTOSHIELD DUO PEN NEEDLE 30 gauge x 3/16 needle, , Disp: , Rfl: benztropine (COGENTIN) 1 mg tablet, Take 1 tablet (1 mg total) by mouth in the morning and 1 tablet(1 mg total) before bedtime., Disp: 180 tablet, Rfl: 3 bismuth subsalicylate (PEPTO BISMOL) 262 mg/15 mL suspension, Take 15 mL by mouth every 6 (six) hours as needed for indigestion or heartburn., Disp: 360 mL, Rfl: 2 calcium carbonate (TUMS) 200 mg elemental (500 mg) chewable tablet, Chew 1 tablet (200 mg total) and swallow in the morning., Disp: 90 tablet, Rfl: 3 cetirizine (ZyrTEC) 10 mg tablet, Take 1 tablet (10 mg total) by mouth in the morning., Disp: 90 tablet, Rfl: 3 dextromethorphan-guaiFENesin (MUCINEX DM) 30-600 mg tablet extended release 12 hr, Take 1 tablet bymouth every 12 (twelve) hours as needed (cough)., Disp: 28 each, Rfl: 0 divalproex (DEPAKOTE) 500 mg EC tablet, Take 1 tablet (500 mg total) by mouth in the morning and 1 tablet (500 mg total) before bedtime., Disp: 90 tablet, Rfl: 3 docusate sodium (COLACE) 100 mg capsule, Take 1 capsule (100 mg total) by mouth daily as needed forconstipation., Disp: , Rfl: fenofibrate (LOFIBRA) 54 mg tablet, Take 1 tablet (54 mg total) by mouth in the morning., Disp: 30 tablet, Rfl: 5 fluticasone propionate (FLONASE) 50 mcg/actuation nasal spray, Administer 2 sprays into each nostril in the morning. Indications: allergic conjunctivitis, inflammation of the nose due to an allergy.,Disp: 15.8 mL, Rfl: 2 gabapentin (NEURONTIN) 600 mg tablet, Take 1 tablet (600 mg total) by mouth in the morning and 1 tablet (600 mg total) before bedtime., Disp: 60 tablet, Rfl: 0 ibuprofen (MOTRIN) 800 mg tablet, Take 1 tablet (800 mg total) by mouth 3 (three) times a day., Disp: 21 tablet, Rfl: 0 ketoconazole (NIZORAL) 2 % shampoo, Apply 1 Application topically 2 (two) times a week. Apply to damp skin, lather, leave on 5 minutes, and rinse, Disp: , Rfl: liraglutide (VICTOZA 3-NITESH) 0.6 mg/0.1 mL (18 mg/3 mL) pen injector, Inject 0.3 mL (1.8 mg total) under the skin in the morning., Disp: 9 mL, Rfl: 3 meclizine (ANTIVERT) 25 mg tablet, Chew 1 tablet (25 mg total) and swallow as needed in the morningand 1 tablet (25 mg total) as needed at noon and 1 tablet (25 mg total) as needed in the evening for dizziness., Disp: , Rfl: melatonin 1 mg tablet,chewable, Chew and swallow as needed., Disp: , Rfl: metFORMIN XR (GLUCOPHAGE XR) 500 mg 24 hr tablet, Take 1 tablet (500 mg total) by mouth in the morning and 1 tablet (500 mg total) before bedtime., Disp: 180 tablet, Rfl: 3 methocarbamoL (ROBAXIN) 500 mg tablet, Take 1 tablet (500 mg total) by mouth as needed for muscle spasms. Unsure on dose, Disp: 90 tablet, Rfl: 2 metoprolol succinate XL (TOPROL XL) 100 mg 24 hr tablet, Take 1 tablet (100 mg total) by mouth in the morning. [employer] Consultant in [place]., Disp: , Rfl: montelukast (SINGULAIR) 10 mg tablet, Take 1 tablet (10 mg total) by mouth nightly., Disp: 90 tablet, Rfl: 0 omeprazole (PriLOSEC) 20 mg capsule, Take 1 capsule (20 mg total) by mouth every morning before breakfast., Disp: 90 capsule, Rfl: 2 ondansetron ODT (ZOFRAN ODT) 4 mg disintegrating tablet, Dissolve 1 tablet (4 mg total) on tongue every 8 (eight) hours as needed for nausea or vomiting for up to 10 doses., Disp: 10 tablet, Rfl: 0 paliperidone (INVEGA) 3 mg 24 hr tablet, Take 1 tablet (3 mg total) by mouth nightly., Disp: 90 tablet, Rfl: 0 pen needle, diabetic (COMFORT EZ PEN NEEDLES) 32 gauge x 1/4 needle, Use 1 needle daily with Victoza, Disp: 100 each, Rfl: 1 phenylephrine HCl-cocoa butter (PREPARATION H,PE,CB,) 0.25-88.44 % suppository, Insert 1 suppository into the rectum every 6 (six) hours as needed (rectal pain or hemorrhoid bleeding)., Disp: 24 suppository, Rfl: 0 QUEtiapine (SEROquel) 300 mg tablet, Take 1 tablet (300 mg total) by mouth nightly. Takes with 25mgtablet, Disp: 90 tablet, Rfl: 0 QUEtiapine (SEROquel) 50 mg tablet, Take 1 tablet (50 mg total) by mouth nightly., Disp: 90 tablet,Rfl: 0 sertraline (ZOLOFT) 100 mg tablet, Take 1 tablet (100 mg total) by mouth in the morning., Disp: 90 tablet, Rfl: 0 simvastatin (ZOCOR) 20 mg tablet, Take 1 tablet (20 mg total) by mouth nightly., Disp: 90 tablet, Rfl: 3 SUMAtriptan (IMITREX) 100 mg tablet, Take 1 tablet (100 mg total) by mouth once as needed for migraine (Migraine). May repeat in 2 hours if unresolved. Do not exceed 200 mg in 24 hours., Disp: 9 tablet, Rfl: 4 topiramate (TOPAMAX) 50 mg tablet, Take 1 tablet (50 mg) nightly for 2 weeks, then increase to 2 tablets (100 mg) nightly, Disp: 60 tablet, Rfl: 2 traZODone (DESYREL) 50 mg tablet, Take 1 tablet (50 mg total) by mouth nightly., Disp: , Rfl: Vitals: 01/29/25 1056 BP: 106/73 Pulse: 81 Temp: 36.7 C (98 F) SpO2: 98% Weight: 100.7 kg (222 lb) Height: 180.3 cm (5' 11 ) ALLERGIES Reviewed with patient. Penicillins and Sulfa (sulfonamide antibiotics) FAMILY HISTORY Family History Problem Relation Age of Onset Sleep apnea Father Anesthesia problems Neg Hx SOCIAL HISTORY Social History Socioeconomic History Marital status: Single Tobacco Use Smoking status: Every Day Current packs/day: 0.50 Average packs/day: 0.3 packs/day for 2.5 years (0.8 ttl pk-yrs) Types: Cigarettes Start date: 2022 Smokeless tobacco: Never Vaping Use Vaping status: Some Days Substances: Nicotine, Flavoring Substance and Sexual Activity Alcohol use: Yes Comment: Occ. Drug use: No Sexual activity: Defer Other Topics Concern Caffeine Use Yes Social Drivers of Health Financial Resource Strain: Low Risk (05/08/2023) Overall Financial Resource Strain (CARDIA) Difficulty of Paying Living Expenses: Not hard at all Food Insecurity: No Food Insecurity (01/29/2025) Hunger Screening Food Insecurity - Worry: Never True Food Insecurity - Inability: Never True Transportation Needs: No Transportation Needs (05/08/2023) PRAPARE - Transportation Lack of Transportation (Medical): No Lack of Transportation (Non-Medical): No Interpersonal Safety: Unknown (10/10/2023) Received from [facility] Humiliation, Afraid, Rape, and Kick questionnaire Fear of Current or Ex-Partner: No Housing Instability: Low Risk (05/08/2023) Housing Instability Housing Instability: No TRAVEL HISTORY Denies recent travel. ROS Review of Systems Constitutional: Positive for fatigue. Negative for fever and chills. HENT: Negative for postnasal drip and rhinorrhea. Respiratory: Negative for cough and shortness of breath. Cardiovascular: Negative for chest pain and palpitations. Psychiatric/Behavioral: Positive for sleep disturbance. PHYSICAL EXAM Vital signs BP 106/73 Pulse 81 Temp 36.7 C (98 F) Ht 180.3 cm (5' 11 ) Wt 100.7 kg (222 lb) SpO2 98% BMI 30.96 kg/m Physical Exam Vitals and nursing note reviewed. Constitutional: Appearance: Normal appearance. He is obese. Cardiovascular: Rate and Rhythm: Normal rate and regular rhythm. Pulses: Normal pulses. Heart sounds: Normal heart sounds. Pulmonary: Effort: Pulmonary effort is normal. Breath sounds: Normal breath sounds. Musculoskeletal: General: Normal range of motion. Skin: General: Skin is warm and dry. Capillary Refill: Capillary refill takes less than 2 seconds. Neurological: General: No focal deficit present. Mental Status: He is alert and oriented to person, place, and time. Psychiatric: Mood and Affect: Mood normal. Behavior: Behavior normal. No data recorded , MALLAMPATI SCALE Patient's Mallampati score is Class III - soft palate, base of uvula. Assessment: Neurological alert and oriented Respiratory effort normal PFT not obtained PERTINENT LAB RESULTS Lab Results Component Value Date CARBON DIOXIDE 21 (L) 01/22/2025 Lab Results Component Value Date TSH 0.99 02/16/2017 IMAGING no studies completed No results found. No results found. IMPRESSION Laxmi was seen today for new patient and sleeping problem. Diagnoses and all orders for this visit: MARK (obstructive sleep apnea) - Ambulatory referral to [facility] Sleep Medicine - AUTO PAP: 5-20 Chronic fatigue Snoring BMI 30.0-30.9,adult Suspected obstructive sleep apnea syndrome A.M. Fatigue Excessive daytime sleepiness Snoring Poor sleep hygiene Obesity Body mass index is 30.96 kg/m . Essential hypertension Bipolar 1 disorder Seizure disorder Parkinson's disease Schizophrenia Type 2 diabetes mellitus Chronic pain Depression GERD Developmental delay Current smoker PLAN Discussed diagnosis, its evaluation, treatment and usual course. All questions answered. Educational material distributed. Consideration of CO2 monitoring (if BMI > 35 and serum CO2 > 27: BMI Readings from Last 1 Encounters: 01/29/25 30.96 kg/m Lab Results Component Value Date CARBON DIOXIDE 21 (L) 01/22/2025 ] Orders Placed This Encounter Procedures AUTO PAP: 5-20 Scheduling Instructions: Length of Need: 12 months -Full Face Interface1/3mos -Full Face Cushion 1/mo -Nasal Cushion 2/mo, -Nasal Mask 1/3mos -Pillows 2/mo -Htd Tubing 1/3mos -Headgear 1/6mos -Chin Strap1/6mos -Non-Disposable Filter1/6mos -Disposable Filter2/mo -Water Chamber1/6mos -Std Tubing 1/3 mos -Add heat humidification with tubing Please specify: AUTO PAP: 5-20 The face to face evaluation was performed on: 01/29/2025 No orders of the defined types were placed in this encounter. Start auto PAP 5-20 cm H2O on a nightly basis. New PAP mask supplies as needed. Diet and exercise were discussed in detail Any age-appropriate routine screenings to be completed per PCP Follow up in 3 Months time. If his condition should change prior to this he is encouraged to give our office a call. EDUCATION: Pathophysiology of MARK was explained. Health risks associated with untreated MARK were discussed (cardiopulmonary, cerebrovascular, and anesthesia/sedative-related). Risks associated with excessive daytime sleepiness, particularly while driving/operating machinery were discussed. The patient was instructed to avoid such activities if feeling sleepy, and to stop the activity if sleepiness occurs (gut puller at the next safe opportunity if driving). MARK treatment options were discussed. CPAP is the most predictably effective treatment. If indicated and prescribed, CPAP must be used every night, all night for full benefits. It may take several weeks until fully accustomed to using the treatment, and before benefits (improved sleep quality and daytime altertness) are noticeable. Potential problems with CPAP were reviewed. Interim measures to reduce obstructive sleep apnea severity were recommended (avoidance of the supine position and elevation of the upper body and during sleep). CC: MD Lissett CORCORAN APRN-CNP [facility] Office: [phone] 11:24 AM on 01/29/2025 This note is dictated with the use of M*Modal.Please note that this dictation was completed with computer voice recognition software. Quite often unanticipated grammatical, syntax, homophones, and other interpretive errors are inadvertently transcribed by the computer software. Please disregard these errors. Please excuse any errors that have escaped final proofreading. CUBA Eaton 01/29/25 1125 documented in this encounterVermont State HospitalRevTrax07-11-2025 Instructions* Patient Instructions* CUBA Eaton - 01/29/2025 11:00 AM EDT Images from the original note were not included. If you re looking for general health and wellness resources, please visit [email or web address]. * Attachments The following attachments cannot be sent through Care Everywhere. * Good sleep hygiene (Slovak) documented in this encounterMarietta [facility] Hospital07-07-2025 Miscellaneous Notes* Telephone Encounter - Meghana Carrera CMA - 01/25/2025 10:49 AM EDT ED Outreach This documentation is being used for Transition of Care purposes: Yes/No: Yes ED Outreach Date: January 25, 2025 ED Outreach Method: COMMUNICATION METHOD: Telephone ED Outreach Attempt: first ED Outreach Outcome: Contacted Patient Name of ED Facility: [facility] Date of ED Discharge: 01/23/2025 Discharge Diagnosis: cough ED Chief Complaint: coughing up blood Current Symptom Status: improving- patients home health care physician states that symptoms are resolved and will discuss with pcp at follow up visit. Denies other concerns at this time Medication Changes Reviewed: yes Medication Questions/Concerns: denies concerns Follow-up PCP Scheduled: 02/01/2025 Follow-up Specialist Scheduled:n/a Follow up Testing Scheduled: n/a Patient Contacted Office Prior to ED Visit: No. Patient made aware of on-call provider and same dayappointment availability. Additional Comments: Patient will contact the office with additional concerns. * Telephone Encounter - Meghana Carrera CMA - 01/25/2025 10:49 AM EDT ED Follow-up This documentation is being used for Transition of Care purposes: Yes/No: Yes ED Follow-up Date: January 25, 2025 ED Outreach Outcome: Contacted Patient Name of ED Facility: [facility] Date of ED Discharge: 01/25/2025 Discharge Diagnosis: Other migraine without status migrainosus Additional Comments: Patient will follow up 02/01/2025 documented in this encounterMarietta Memorial Hospital07-07-2025 Telephone encounter Note* Telephone Encounter - Meghana Carrera CMA - 01/25/2025 10:49 AM EDT ED Outreach This documentation is being used for Transition of Care purposes: Yes/No: Yes ED Outreach Date: January 25, 2025 ED Outreach Method: COMMUNICATION METHOD: Telephone ED Outreach Attempt: first ED Outreach Outcome: Contacted Patient Name of ED Facility: [facility] Date of ED Discharge: 01/23/2025 Discharge Diagnosis: cough ED Chief Complaint: coughing up blood Current Symptom Status: improving- patients home health care physician states that symptoms are resolved and will discuss with pcp at follow up visit. Denies other concerns at this time Medication Changes Reviewed: yes Medication Questions/Concerns: denies concerns Follow-up PCP Scheduled: 02/01/2025 Follow-up Specialist Scheduled:n/a Follow up Testing Scheduled: n/a Patient Contacted Office Prior to ED Visit: No. Patient made aware of on-call provider and same dayappointment availability. Additional Comments: Patient will contact the office with additional concerns. [facility]07-07-[facility] Telephone encounter Note* Telephone Encounter - Meghana Carrera CMA - 01/25/2025 10:49 AM EDT ED Follow-up This documentation is being used for Transition of Care purposes: Yes/No: Yes ED Follow-up Date: January 25, 2025 ED Outreach Outcome: Contacted Patient Name of ED Facility: [facility] Date of ED Discharge: 01/25/2025 Discharge Diagnosis: Other migraine without status migrainosus Additional Comments: Patient will follow up 02/01/2025 [facility]07-02-[facility] History of Present illness Narrative* Myla Rm PA-C - 01/20/2025 12:45 PM EDT [facility] [address] [place] [id number] Patient: Laxmi Torres Sex: male : 1975 Age: 49 y.o. PCP: JUSTIN UNDERWOOD MD 01/20/2025 Laxmi Torres is here for a 2-3 month follow up with increased pain in right hip. Chief Complaint Patient presents with Back Pain No complaints or pain since SCS reprogram HPI: 09/23/20 Left L5S1 NRI 50% relief [...] is a chronic (2016 (or before per privacy attorney)) problem. The current episode started more than 1year ago. The problem occurs rarely. The problem has been resolved since onset. The pain is presentin the lumbar spine, sacro-iliac and gluteal (no pain). The pain does not radiate. The pain is at aseverity of 0/10. The patient is experiencing no pain. The pain is The same all the time (no pain all the time). Exacerbated by: tolerating all activity post SCS. Stiffness is present: n/a. Pertinentnegatives include no bladder incontinence, bowel incontinence, chest pain, fever, leg pain, numbness or weakness. Risk factors include lack of [...] Anxiety Autism Back problem Bipolar I disorder ([facility]) 01/17/2017 Chipped tooth upper molar chipped Chronic pain disorder Chronic sinusitis COVID-2019 Depression Developmental delay disorder Deviated nasal septum 07/30/2022 Diabetes mellitus, type 2 ([facility]) Disc displacement, lumbar 08/20/2019 DNS (deviated nasal [...] Obstructive sleep apnea syndrome 07/02/2011 Seizure disorder ([facility]) states in childhood, denies seizures as an adult Sleep apnea Smoker Spinal stenosis of lumbar region 08/2023 Tachycardia 08/12/2020 Past Surgical History: Procedure Laterality Date BACK SURGERY CHOLECYSTECTOMY INJECTION BLOCK EPIDURAL STEROID LUMBAR/SACRAL: left L 5,1 nroot Left 09/23/2020 Performed by Titus Pritchett MD at [facility] INJECTION BLOCK EPIDURAL STEROID LUMBAR/SACRAL: Left L 5/1 Nroot Left 10/28/2020 Performed by Titus Pritchett MD at [facility] INJECTION BLOCK NERVE MEDIAL BRANCH: bilat L 1/2 5/ Bilateral 04/14/2021 Performed by Titus Pritchett MD at [facility] INJECTION BLOCK NERVE MEDIAL BRANCH: bilat L /2 _ 11/19 Bilateral 03/03/2021 Performed by Titus Pritchett MD at [facility] BLOCK SACROILIAC JOINT Bilateral 12/14/2022 Performed by Titus Pritchett MD at [facility] INJECTION BLOCK SACROILIAC JOINT Bilateral 11/03/2021 Performed by iTtus Pritchett MD at [facility] INJECTION BLOCK SACROILIAC JOINT Bilateral 09/29/2021 Performed by Titus Pritchett MD at [facility] LUMBAR OR SACRAL EPIDURAL BLOCK WITH STEROIDS: L12 DANA N/A 09/25/2019 Performed by Titus Pritchett MD at [facility] LUMBAR OR SACRAL EPIDURAL BLOCK WITH STEROIDS: L12 DANA N/A 08/28/2019 Performed by Titus Pritchett MD at [facility] SPINE TRANSFORAMINAL: right L 1,2 Nroot Right 09/13/2023 Performed by Titus Pritchett MD at [facility] INSERTION PERMANENT STIMULATOR SPINAL CORD N/A 04/17/2024 Performed by Titus Pritchett MD at [facility] INSERTION STIMULATOR SPINAL CORD- TRIAL N/A 02/21/2024 Performed by Titus Pritchett MD at [facility] NECK SURGERY Fusion C4-7 OPEN FUNCTIONAL RHINOPLASTY SEPTOPLASTY NOSE WITH REPAIR OF TURBINATE FRACTURE N/A 03/11/2023 Performed by Marlee Vazquez DO at [facility] RADIOFREQUENCY ABLATION SPINAL: left L /2 _ 11/19 Left 10/12/2022 Performed by Titus Pritchett MD at [facility] RADIOFREQUENCY ABLATION SPINAL: left L /2 _11/19 Left 06/23/2021 Performed by Titus Pritchett MD at [facility] RADIOFREQUENCY ABLATION SPINAL: left SI Left 12/01/2021 Performed by Titus Pritchett MD at [facility] RADIOFREQUENCY ABLATION SPINAL: right L /2 _ 11/19 Right 09/28/2022 Performed by Titus Pritchett MD at [facility] RADIOFREQUENCY ABLATION SPINAL: right L /2 _11/19 Right 06/05/2021 Performed by Titus Pritchett MD at [facility] RADIOFREQUENCY ABLATION SPINAL: right SI Right 12/15/2021 Performed by Titus Pritchett MD at [facility] REDUCTION TURBINATE Bilateral 03/11/2023 Performed by Marlee Vazquez DO at [facility] REVISION STIMULATOR SPINAL CORD N/A 08/14/2024 Performed by Titus Pritchett MD at [facility] Allergies Allergen Reactions Penicillins Hives Unknown [...] packs/day: 0.50 Average packs/day: 0.3 packs/day for 2.5 years (0.7 ttl pk-yrs) Types: Cigarettes Start date: 2022 Smokeless tobacco: Never Vaping Use Vaping status: Some Days Substances: Nicotine, Flavoring Substance and Sexual Activity Alcohol use: Yes Comment: Occ. Drug use: No Sexual activity: Defer Other Topics Concern Caffeine Use Yes Social History Narrative Not on file Social Drivers of Health Financial Resource Strain: Low Risk (05/08/2023) Overall Financial Resource Strain (CARDIA) Difficulty of Paying Living Expenses: Not hard at all Food Insecurity: No Food Insecurity (01/20/2025) Hunger Screening Food Insecurity - Worry: Never True Food Insecurity - Inability: Never True Transportation Needs: No Transportation Needs (05/08/2023) PRAPARE - Transportation Lack of Transportation (Medical): No Lack of Transportation (Non-Medical): No Physical Activity: Not on file Stress: Not on file Social Connections: Not on file Interpersonal Safety: Unknown (10/10/2023) Received from [facility] Humiliation, Afraid, Rape, and Kick questionnaire [...] Negative for bladder incontinence. Musculoskeletal: Positive for gait problem (fell times 2 09/2024). Negative for back pain (no pain since SCS reprogram). Skin: Negative. Negative for rash and wound. Allergic/Immunologic: Negative. Neurological: Negative for weakness and numbness. Hematological: Negative. Does not bruise/bleed easily. Psychiatric/Behavioral: Negative. Negative for self-injury and suicidal ideas. Vital Signs: BP 115/77 (BP Site: Right Arm, BP Postition: Sitting) Pulse 100 Resp 20 Ht 182.9 cm (6') Wt100.2 kg (221 lb) BMI 29.97 kg/m Physical Exam: GENERAL - Healthy patient [...] during discussion, demonstrated appropriate cognitive reasoning and understandingof the medical condition by asking appropriate questions [...] spine and paraspinal musculature. Pain is elicited withflexion, extension, and lateral rotation of the lumbar [...] dermatomal distributions. Straight Leg Raise is negative. Tenderness to palpation is noted over the Right SacroIliac Joint: Fabere sign (Connor's Test) is significantly positive, as is compression and distraction of the sacroiliac joints, which is consistent with some of the patient's normal pain. Tenderness to palpation noted over the Right Greater Trochanteric Bursa which is consistent with some of the patient s normal pain. Gait is normal. Assessment/Treatment Plan: Laxmi was seen today for back pain. Diagnoses and all orders for this visit: Lumbosacral spondylosis without myelopathy Disorder of sacrum - Ambulatory referral to Physical Therapy; Future Trochanteric bursitis of right hip - Ambulatory referral to Physical Therapy; Future ICE The patient is advised to apply ice or cold packs intermittently as needed to relieve pain. Physical/Aquatic Therapy - It is felt that the patient will benefit from a course of physical therapy focusing on the above mentioned diagnosis. We will recommend that the physical therapist fully evaluate and treat at their discretion considering the modalities that are most useful for the condition being treated. This may i nclude modalities of comfort including moist heat, ultrasound, [...] to the patient s progress. Follow up 6-8 weeks The medications prescribed have been reviewed [...] monitoring for toxicity We do not currently prescribeany controlled substance from this practice. The spine model was demonstrated and Xray and MRI was reviewed and used to explain the condition. OARRS: Reviewed. Scribe Statement: Abril Cote CNA, scribed for and in the presence of MYLA RM PA-C who performed the above service. Abril Durán CNA 01/20/25 0491 Myla Rm PA-C 01/20/25 8129 documented in this encounterMarietta Memorial Hospital06-13-2025 NotePatient is here today for 3 month follow up. Patient had ECHO and Labs. Patient states he is SOB, SMITH, hand and arm numbness and heart racing. Review of Systems Cardiovascular: Positive for dyspnea on exertion and palpitations. Respiratory: Positive for shortness of breath. Neurological: Positive for numbness (arms and hands).[facility]06-13-[facility] NoteSUBJECTIVE Reason for Visit: Laxmi Torres is a 49 y.o. year old male patient being seen for 3-month follow-up visit. HPI: Laxmi Torres is a 49 y.o. year old male with significant medical history of palpitations, inappropriate sinus tachycardia, hypertension, hyperlipidemia, type 2 diabetes mellitus, seizure disorder, and mood disorder. 01/01/2025 office visit: Patient was seen and evaluated in the office today, accompanied by his caregiver. He reports worsening dyspnea on exertion compared to the prior visit, particularly with walking more than half a block or climbing stairs - activities that routinely require him to stop and catch his breath. He also notes more frequent episodes of rapid heart rate. He continues to smoke half a pack of cigarettes per day and is not interested in cessation at this time. Pulmonary function tests from October show mild obstructive disease. A pulmonology referral is recommended for inhaler optimization. Otherwise, he denies chest pain, lightheadedness, dizziness, or lower extremity edema. 10/07/2024 office visit (Dr. Currie): HPI Patient has a history of palpitation possible inappropriate sinus tachycardia, hypertension, hyperlipidemia, type 2 diabetes mellitus, seizure disorder and mood disorder Patient is here today with his caregiver for follow-up visit. He reports that he has exertional dyspnea with climbing stairs or walking fast. On the other hand he is able to vacuum without problem. He denies chest discomfort at rest or with exertion. He does not exercise on a regular basis. He denies orthopnea. He wakes up gasping for air. He also snores and feels tired during the daytime. He is going to have sleep study next month. He admits racing in the heart when he is upset or excited. He denies dizziness or syncope or near syncope. He denies legs edema legs comfort on exertion He vapes nicotine for a while however he started smoking cigarettes about 2 packs/week since his mother about 3 years ago. He denies alcohol or illicit drugs Medical History[1] Surgical History[2] Problem List[3] family history is not on file. He was adopted. Social History[4] OBJECTIVE Visit Vitals Smoking Status Every Day Physical Exam Constitutional: General Appearance: well-developed, appears stated age. Level of Distress: no acute distress. Neck: Jugular Veins: normal jugular venous pressure. Lungs: Diminished. Cardiovascular: Rate And Rhythm: fast, regular Heart Sounds: normal S1 and s2; Systolic Murmur: not heard. Diastolic Murmur: not heard. Extremities: no edema Peripheral Pulses: Pulses: full and equal in all extremities except if noted. Abdomen: Inspection and Palpation: non distended or tender and soft. Musculoskeletal: Inspection: no joint tenderness or swelling. Neurologic: Gait: normal gait. Psychiatric: Mental Status: alert and normal affect. Skin: Inspection and Palpation: warm and dry. Allergies: Allergies[5] Outpatient Medications: Current Outpatient Medications Medication Instructions aspirin 81 mg EC tablet Daily RT benztropine (Cogentin) 1 mg tablet benztropine 1 mg tablet divalproex (Depakote) 500 mg EC tablet divalproex 500 mg tablet,delayed release fenofibrate (LOFIBRA) 54 mg, oral, Daily RT gabapentin (Neurontin) 600 mg tablet gabapentin 600 mg tablet melatonin (MELATIN ORAL) 3 mg, oral meloxicam (MOBIC) 15 mg, oral, Daily metFORMIN XR (Glucophage-XR) 500 mg 24 hr tablet metformin ER 500 mg tablet,extended release 24 hr methocarbamol (ROBAXIN) 500 mg, oral, Daily PRN metoprolol succinate XL (TOPROL-XL) 75 mg, oral, Daily, Do not crush or chew. omeprazole (PriLOSEC) [address] capsule omeprazole 20 mg capsule,delayed release paliperidone (INVEGA) 3 mg, oral, Every morning, Do not crush, chew, or split. pyrilamine/dextromethorphan hb (CAPRON DM ORAL) 10 mg, oral QUEtiapine (SEROQUEL) 25 mg, Every 12 hours QUEtiapine (SEROQUEL) 300 mg, oral, Nightly, Takes a total of 350 mg nightly sertraline (Zoloft) 100 mg tablet sertraline 100 mg tablet simvastatin (ZOCOR) 20 mg, oral, Nightly Victoza 2-Nitesh 1.8 mg, subcutaneous, Daily Recent Labs: No visits with results within 6 Month(s) from this visit. Latest known visit with results is: [facility] Encounter on 03/10/2021 Component Date Value Ventricular Rate 03/10/2021 99 Atrial Rate 03/10/2021 99 VA Interval 03/10/2021 178 QRS DURATION 03/10/2021 104 QT Interval 03/10/2021 368 QTC CALCULATION(BAZETT) 03/10/2021 472 P Dell 03/10/2021 35 R-Dell 03/10/2021 -7 T Wave Dell 03/10/2021 -14 Diagnosis 03/10/2021 Value:Normal sinus rhythm Possible Left atrial enlargement Left ventricular hypertrophy Inferior infarct , age undetermined Abnormal ECG When compared with ECG of 06-APR-2015 00:38, Inferior infarct is now Present Nonspecific T wave abnormality now evident in Anterolateral leads Confirmed by Vesna NAIR, JAE Romero ([id number]) on (more content not included)... [facility]05-28-2025 Miscellaneous Notes* Telephone Encounter - Tegan Galarza CMA - 12/16/2024 3:21 PM EDT Notification received from [facility] for the medication Sumatriptan 100 mg tabs. Per notice a formulary exception is needed. A temporary supply was given to the patient 12/09/24. * Telephone Encounter - Cinda Bynum - 12/16/2024 3:21 PM EDT Images from the original note were not included. Per response received from [facility], No PA is needed. Pharmacy needs to make sure they are running the script for 9 per 30 days as that is the allowed amount per insurance. documented in this encounterKettering Health DaytonFusionone [facility] [id number] Telephone encounter Note* Telephone Encounter - Tegan Galarza CMA - 12/16/2024 3:21 PM EDT Notification received from [facility] for the medication Sumatriptan 100 mg tabs. Per notice a formulary exception is needed. A temporary supply was given to the patient 12/09/24. [facility]05-28-2025 Telephone encounter Note* Telephone Encounter - Cinda Bynum - 12/16/2024 3:21 PM EDT Images from the original note were not included. Per response received from [facility], No PA is needed. Pharmacy needs to make sure they are running the script for 9 per 30 days as that is the allowed amount per insurance. [facility] [id number] History of Present illness Narrative* Justin Underwood MD - 12/03/2024 4:30 PM EDT Images from the original note were not included. [address] [place] [id number] Patient: Laxmi Torres Date of : 1975 Encounter Date: 12/03/2024 SUBJECTIVE: Chief Complaint: Chief Complaint Patient presents with Follow-up Patient ID: Laxmi Torres is a 49 y.o. male. 48-year-old gentleman lives in adult foster care HTN, HLD, T2DM, pancreatitis, GERD, MARK, childhood seizures, bipolar disorder, autism, developmental delay, anxiety, depression, alcohol syndrome, and chronic pain syndrome Past medical history of type 2 diabetes last A1c of 6.5 completed earlier this year Adherent to therapies including: -Cogentin, Zoloft, Depakote, Seroquel, trazodone, gabapentin. With no significant dose changes in the last several months. Type 2 diabetes, sugars relatively stable, last A1c 6.5, adherent to Victoza Headaches associated with blurry vision and nausea Ibuprofen and tylenol have not been working. Last migraine headache was approximately 10 days ago. Associated with nausea, weakness, unilateral then spread to bilateral headaches. Does impact his sleep and energy and mood. + paresthesia in b/l hands. However this has been present well before the migraine headaches as well. The following portions of the patient's history were reviewed and updated as appropriate: allergies, current medications, past family history, past medical history, past social history, past surgicalhistory and problem list. PHYSICAL EXAMINATION: There were no vitals filed for this visit. Physical Exam Vitals reviewed. Constitutional: General: He [...] is no right CVA tenderness, left CVA tendernessor guarding. Musculoskeletal: Cervical back: Normal range of motion and neck supple. Neurological: Mental Status: He is alert and oriented to person, place, and time. Mental status is at baseline. ASSESSMENT/PLAN: Laxmi was seen today for follow-up. Diagnoses and all orders for this visit: Migraine without aura and with status migrainosus, not intractable - SUMAtriptan (IMITREX) 50 mg tablet; Take 1 tablet (50 mg total) by mouth once as needed for migraine (Migraine) for up to 30 doses. May repeat in 2 hours if unresolved. Do not exceed 200 mg in 24 hours. Type 2 diabetes mellitus treated without insulin ([facility]) - Hemoglobin A1c; Future Migraine headache, multiple confounding pathologies including insomnia, blood sugar optimization, tobacco use, bipolar disorder, Depakote among other comorbidities. Reassess A1c as above Has upcoming appointment with Neurology, referral placed by ER. Trial Imitrex for migraine headaches. Red flag signs to seek emergent care reviewed with patient JUSTIN UNDERWOOD MD Family Medicine Physician [facility] Medicine / [facility] 12/03/24 This note was completed with voice recognition software. The document was reviewed for errors however some may still be present. Please do not hesitate to contact/Epic msg the author to verify any questions/concerns. documented in this encounterMarietta Memorial Hospital05-08-2025 Miscellaneous Notes* Telephone Encounter - Bernie Juan CNA - 11/26/2024 4:08 PM EDT Laxmi called office inquiring about testing results completed at [facility]. [employer] explained our office has not received any results for these tests for his heart. HE should call his track laying machine operator for results. documented in this encounterMarietta Memorial Hospital05-08-2025 Telephone encounter Note* Telephone Encounter - Bernie Juan CNA - 11/26/2024 4:08 PM EDT Laxmi called office inquiring about testing results completed at [facility]. [employer] explained our office has not received any results for these tests for his heart. HE should call his track laying machine operator for results. [facility]05-05-2025 Miscellaneous Notes* Telephone Encounter - Mone Card - 11/23/2024 3:41 PM EDT Received new patient referral. Please call patient to schedule a new patient appointment for Other migraine without status migrainosus, not intractable IS THIS DUE TO AN ACCIDENT? IS THIS WORKER'S COMP? PLEASE VERIFY IF THIS IS WORKERS COMP AND DOCUMENT (We do not accept any new workers comp cases) WHAT INSURANCE? HAVE YOU EVER BEEN SEEN BY A NEUROLOGIST BEFORE? * Telephone Encounter - Annabelle Coleman - 11/23/2024 3:41 PM EDT Please ask the following questions to the new patient that you are schedulin. IS THIS DUE TO AN ACCIDENT? -No 2. IS THIS WORKER'S COMP? PLEASE VERIFY IF THIS IS WORKERS COMP AND DOCUMENT (We do not accept any new workers comp cases) -No 3. WHAT INSURANCE? -MEDICARE 4. HAVE YOU EVER BEEN SEEN BY A NEUROLOGIST BEFORE? IF YES, WHO AND WHEN? IS THIS A SECOND OPINION? -No 5. ANY CHANCE OF NOW OR BEFORE YOUR APPOINTMENT? -No 6. OFFERED TOO FOR SOONER APPOINTMENT? -Yes 7. PATIENT IS SCHEDULED ON/WITH: -Vish Sanchez 12/18/24 at 9:00 AM 8. WHO CALLED TO SCHEDULE APPOINTMENT? -Marco Gomez Caregiver documented [facility] Telephone encounter Note* Telephone Encounter - Mone Card - 11/23/2024 3:41 PM EDT Received new patient referral. Please call patient to schedule a new patient appointment for Other migraine without status migrainosus, not intractable IS THIS DUE TO AN ACCIDENT? IS THIS WORKER'S COMP? PLEASE VERIFY IF THIS IS WORKERS COMP AND DOCUMENT (We do not accept any new workers comp cases) WHAT INSURANCE? HAVE YOU EVER BEEN SEEN BY A NEUROLOGIST BEFORE? [facility] Tele[facility] encounter Note* Telephone Encounter - Annabelle Coleman - 11/23/2024 3:41 PM EDT Please ask the following questions to the new patient that you are schedulin. IS THIS DUE TO AN ACCIDENT? -No 2. IS THIS WORKER'S COMP? PLEASE VERIFY IF THIS IS WORKERS COMP AND DOCUMENT (We do not accept any new workers comp cases) -No 3. WHAT INSURANCE? -MEDICARE 4. HAVE YOU EVER BEEN SEEN BY A NEUROLOGIST BEFORE? IF YES, WHO AND WHEN? IS THIS A SECOND OPINION? -No 5. ANY CHANCE OF NOW OR BEFORE YOUR APPOINTMENT? -No 6. OFFERED TOO FOR SOONER APPOINTMENT? -Yes 7. PATIENT IS SCHEDULED ON/WITH: -Vish Daniel 12/18/24 at 9:00 AM 8. WHO CALLED TO SCHEDULE APPOINTMENT? -Marco Gomez Caregiver [facility] Miscellaneous Notes* Telephone Encounter - Meghana Carrera CMA - 11/23/2024 8:32 AM EDT ED Outreach This documentation is being used for Transition of Care purposes: Yes/No: Yes ED Outreach Date: November 23, 2024 ED Outreach Method: COMMUNICATION METHOD: Telephone ED Outreach Attempt: first ED Outreach Outcome: Contacted Patient Name of ED Facility: [facility] Date of ED Discharge: 2024 Discharge Diagnosis: Other migraine without status ED Chief Complaint: headache Current Symptom Status: improving- spoke with patient's multi care technician, Marco. He states that he is aware of the ER visit, but has not seen the patient since ED discharge. He or his staff will contact PCPoffice with any other needs. Medication Changes Reviewed: yes Medication Questions/Concerns: denies concerns Follow-up PCP Scheduled: will call back to schedule Follow-up Specialist Scheduled:will assist with scheduling neurology visit. Follow up Testing Scheduled: n/a Patient Contacted Office Prior to ED Visit: No. Patient made aware of on-call provider and same dayappointment availability. Additional Comments: Patient will contact the office with additional concerns. [facility] Telephone encounter Note* Telephone Encounter - Meghana Carrera CMA - 11/23/2024 8:32 AM EDT ED Outreach This documentation is being used for Transition of Care purposes: Yes/No: Yes ED Outreach Date: November 23, 2024 ED Outreach Method: COMMUNICATION METHOD: Telephone ED Outreach Attempt: first ED Outreach Outcome: Contacted Patient Name of ED Facility: [facility] Date of ED Discharge: 2024 Discharge Diagnosis: Other migraine without status ED Chief Complaint: headache Current Symptom Status: improving- spoke with patient's multi care technician, Marco. He states that he is aware of the ER visit, but has not seen the patient since ED discharge. He or his staff will contact PCPoffice with any other needs. Medication Changes Reviewed: yes Medication Questions/Concerns: denies concerns Follow-up PCP Scheduled: will call back to schedule Follow-up Specialist Scheduled:will assist with scheduling neurology visit. Follow up Testing Scheduled: n/a Patient Contacted Office Prior to ED Visit: No. Patient made aware of on-call provider and same dayappointment availability. Additional Comments: Patient will contact the office with additional concerns. [facility]04-14-[facility] Miscellaneous Notes* Telephone Encounter - Debra Rosales CMA - 11/02/2024 9:13 AM EDT Patients caregiver called to inform PCP that patients blood sugar has been above 210 on two sperateinstances. On 10/31 and then again on 11/02. documented in this encounterM[facility]04-14-2025 Telephone encounter Note* Telephone Encounter - Debra Rosales CMA - 11/02/2024 9:13 AM EDT Patients caregiver called to inform PCP that patients blood sugar has been above 210 on two sperateinstances. On 10/31 and then again on 11/02. [facility]04-03-[facility] History of Present illness Narrative* BRUCE Servin - 10/22/2024 12:30 PM EDT [facility] [address] [place] [address] Patient: Laxmi Torres Sex: male : 1975 Age: 48 y.o. PCP: JUSTIN UNDERWOOD MD 10/22/2024 Laxmi Torres is here for a(n) follow up for back pain. Patient denies pain except when charging SCS and subsequently it is . Chief Complaint Patient presents with Back Pain [...] is a chronic (2016 (or before per privacy attorney)) problem. The current episode started more than 1year ago. The problem occurs rarely. The problem has been rapidly improving since onset. The pain is present in the lumbar spine, sacro- iliac and gluteal. The quality of the pain is described as aching. The pain does not radiate. The pain is at a severity of 0/10. The patient is experiencing no pain. Exacerbated by: tolerating all activity post SCS. Stiffness is present In the morning, all day and at night (intermittently). Pertinent negatives include no bladder incontinence, bowel incontinence, chest pain, fever, leg pain, numbness or weakness. Risk factors include lack of exercise, obesity and sedentary lifestyle (osteoarthritis). He has tried ice, heat, analgesics, home exercises, musclerelaxant, NSAIDs and walking (PT (06/2021-Jul 2022), HEP, [...] Anxiety Autism Back problem Bipolar I disorder ([facility]) 01/17/2017 Chipped tooth upper molar chipped Chronic pain disorder Chronic sinusitis COVID-19 2019 Depression Developmental delay disorder Deviated nasal septum 07/30/2022 Diabetes mellitus, type 2 ([facility]) Disc displacement, lumbar 08/20/2019 DNS (deviated nasal septum) alcohol syndrome GERD (gastroesophageal reflux disease) Hemorrhoids without complication 08/12/2020 Hip pain, bilateral Hyperlipidemia Hypersomnia Hypertension Hypokalemia Impulse control disorder in adult Injury of back Intellectual functioning disability 07/02/2011 Leukopenia 03/04/2023 Low back pain Lumbar post-laminectomy syndrome 08/06/2011 Mild oppositional defiant disorder with angry or irritable mood Nasal congestion Nasal turbinate hypertrophy Neck pain Bogota's syndrome Obstructive sleep apnea syndrome 07/02/2011 Seizure disorder ([facility]) states in childhood, denies seizures as an adult Sleep apnea Smoker Spinal stenosis of lumbar region 08/2023 Tachycardia 08/12/2020 Past Surgical History: Procedure Laterality Date BACK SURGERY CHOLECYSTECTOMY INJECTION BLOCK EPIDURAL STEROID LUMBAR/SACRAL: left L 5,1 nroot Left 09/23/2020 Performed by Titus Pritchett MD at [facility] INJECTION BLOCK EPIDURAL STEROID LUMBAR/SACRAL: Left L 5/1 Nroot Left 10/28/2020 Performed by Titus Pritchett MD at [facility] INJECTION BLOCK NERVE MEDIAL BRANCH: bilat L 1/2 / Bilateral 04/14/2021 Performed by Titus Pritchett MD at [facility] IN[facility]CTION BLOCK NERVE MEDIAL BRANCH: bilat L 1/2 _ 11/19 Bilateral 03/03/2021 Performed by Titus Pritchett MD at [facility] IN[facility]CTION BLOCK SACROILIAC JOINT Bilateral 12/14/2022 Performed by Titus Pritchett MD at [facility] IN[facility]CTION BLOCK SACROILIAC JOINT Bilateral 11/03/2021 Performed by Titus Pritchett MD at [facility] IN[facility]CTION BLOCK SACROILIAC JOINT Bilateral 09/29/2021 Performed by Titus Pritchett MD at [facility] INJECTION LUMBAR OR SACRAL EPIDURAL BLOCK WITH STEROIDS: L12 DANA N/A 09/25/2019 Performed by Titus Pritchett MD at [facility] INJECTION LUMBAR OR SACRAL EPIDURAL BLOCK WITH STEROIDS: L12 DANA N/A 08/28/2019 Performed by Titus Pritchett MD at [facility] INJECTION SPINE TRANSFORAMINAL: right L 1,2 Nroot Right 09/13/2023 Performed by Titus Pritchett MD at [facility] INSERTION PERMANENT STIMULATOR SPINAL CORD N/A 04/17/2024 Performed by Titus Pritchett MD at [facility] INSERTION STIMULATOR SPINAL CORD- TRIAL N/A 02/21/2024 Performed by Titus Pritchett MD at [facility] NECK SURGERY Fusion C4-7 OPEN FUNCTIONAL RHINOPLASTY SEPTOPLASTY NOSE WITH REPAIR OF TURBINATE FRACTURE N/A 03/11/2023 Performed by Marlee Vazquez DO at [facility] RADIOFREQUENCY ABLATION SPINAL: left L 1/2 _ 11/19 Left 10/12/2022 Performed by Titus Pritchett MD at [facility] RADIOFREQUENCY ABLATION SPINAL: left L 1/2 _/ Left 06/23/2021 Performed by Titus Pritchett MD at [facility] RADIOFREQUENCY ABLATION SPINAL: left SI Left 12/01/2021 Performed by Titus Pritchett MD at [facility] RADIOFREQUENCY ABLATION SPINAL: right L 1/2 _ 11/19 Right 09/28/2022 Performed by Titus Pritchett MD at [facility] RADIOFREQUENCY ABLATION SPINAL: right L 1/2 _/ Right 06/05/2021 Performed by Titus Pritchett MD at [facility] RADIOFREQUENCY ABLATION SPINAL: right SI Right 12/15/2021 Performed by Titus Pritchett MD at [facility] REDUCTION TURBINATE Bilateral 03/11/2023 Performed by Marlee Vazquez DO at [facility] REVISION STIMULATOR SPINAL CORD N/A 08/14/2024 Performed by Titus Pritchett MD at [facility] Allergies Allergen Reactions Penicillins Hives Unknown reaction [...] packs/day: 0.50 Average packs/day: 0.3 packs/day for 2.3 years (0.6 ttl pk-yrs) Types: Cigarettes Start [...] at all Food Insecurity: No Food Insecurity (10/22/2024) Hunger Screening Food Insecurity - Worry: Never True Food Insecurity - Inability: Never True Transportation Needs: No Transportation Needs (05/08/2023) PRAPARE - Transportation Lack of Transportation (Medical): No Lack of Transportation (Non-Medical): No Physical Activity: Not on file Stress: Not on file Social Connections: Not on file Interpersonal Safety: Unknown (10/10/2023) [facility] Humiliation, Afraid, Rape, and Kick questionnaire Fear of Current or Ex-Partner: No Emotionally Abused: Not on file Physically Abused: Not on file Sexually Abused: Not on file Housing Instability: Low Risk (05/08/2023) Housing Instability Housing Instability: No Review of Systems Constitutional: Negative. Negative for chills, fatigue and fever. HENT: Negative. Respiratory: Positive for cough (recovering from sinus issue 09/2024). Negative for shortness of breath. Cardiovascular: Negative. Negative for chest pain. Gastrointestinal: Negative. Negative for bowel incontinence. Genitourinary: Negative. Negative for bladder incontinence. Musculoskeletal: Positive for back pain and gait problem (fell times 2 09/2024). Skin: Negative. Negative for rash and wound. Neurological: Negative for weakness and numbness. Hematological: Negative. Does not bruise/bleed easily. Psychiatric/Behavioral: Negative. Negative for self-injury and suicidal ideas. Vital Signs: BP 123/86 Pulse 88 Resp 18 Ht 182.9 cm (6') Wt 101.2 kg (223 lb) SpO2 98% BMI 30.24 kg/m Physical Exam: GENERAL - Healthy patient [...] during discussion, demonstrated appropriate cognitive reasoning and understandingof the medical condition by asking appropriate questions [...] spine and paraspinal musculature. Pain is elicited withflexion, extension, and lateral rotation of the lumbar [...] all dermatomal distributions. Straight Leg Raise is negatively bilaterally. Gait is normal. Assessment/Treatment Plan: Laxmi was seen today for back pain. Diagnoses and all orders for this visit: Postlaminectomy syndrome of lumbar region Patient to contact [employer] [facility] to reprogram SCS, check manager nicu Monitor Follow up in 2-3 months The medications prescribed have been reviewed for [...] monitoring for toxicity We do not currently prescribeany controlled substance from this practice. At this [...] decision making: Diabetes OARRS: Reviewed. Scribe Statement: I, Chelsey Parker RN, scribed for and in the presence of BURCE SERVIN who performed the above service. Chelsey Parker RN 10/22/24 1304 Chelsey Parker RN 10/22/24 1436 BRUCE Servin 10/22/24 1541 documented in this encounterK[facility]ash.[place] [facility] [id number] Instructions* Patient Instructions* Chelsey Parker RN - 10/22/2024 12:30 PM EDT Contact [employer] [facility] to check spinal cord stimulator manager nicu. Please notify our office once this appointment has been made. documented in this encounterKettering Health DaytonGHash.[place] [facility] [id number] Evaluation + Plan note* Assessment & Plan Note - Rand Recinos DO - 10/14/2024 12:54 PM EDT Associated Problem(s): Acute bronchitis Patient with symptoms of cough shortness of breath, wheezing noted in right lung base on exam. He completed 1 course of a Z-Nitesh. To ensure completeness of for treatment for frontal sinusitis will prescribe a second course of Z-Nitesh to be taken starting October 18, 2024. Patient to start on prednisone 20 mg 1 tablet daily for 5 days for inflammation and use Mucinex DM 30 to 601 tablet every 12 hours as needed for cough. [facility]03-26-2025 Miscellaneous Notes* Assessment & Plan Note - Rand Recinos DO - 10/14/2024 12:54 PM EDTAssociated Problem(s): Acute bronchitis Patient with symptoms of cough shortness of breath, wheezing noted in right lung base on exam. He completed 1 course of a Z-Nitesh. To ensure completeness of for treatment for frontal sinusitis will prescribe a second course of Z-Nitesh to be taken starting October 18, 2024. Patient to start on prednisone 20 mg 1 tablet daily for 5 days for inflammation and use Mucinex DM 30 to 601 tablet every 12 hours as needed for cough. documented in this encounterMarietta [facility] Hospital03-26-2025 History of Present illness Narrative* Rand Recinos DO - 10/14/2024 11:30 AM EDT Images from the original note were not included. [facility] [address] [place] [address] [place] [address] Patient: Laxmi Torres Date of : 1975 Encounter Date: 10/14/2024 Subjective: Chief Complaint Chief Complaint Patient presents with Follow-up Sinus infection. Finished meds last night. Not improving. History of Present Illness Laxmi Torres is a 48 y.o. male, established patient, that presents to the office for sinus infection and cough, symptoms not improving. History from patient. Cough This is a new problem. Progression since onset: Completed 5 day course of azithromycin for acute sinus infection. Cough characteristics: Cough nonproductive but feels like stuff in chest that needs to brought up. Associated symptoms include ear congestion, headaches, postnasal drip, rhinorrhea, a sore throat (Located in middle of throat and worsens with swallowing. has been eating softer foods) and wheezing. Pertinent negatives include no chills or fever. Exacerbated by: Cough present at nighttime and. Treatments tried: Has been using PRN inhaler which has not been effective. Review of Systems Review of Systems Constitutional: Negative for chills and fever. HENT: Positive for postnasal drip, rhinorrhea, sneezing and sore throat (Located in middle of throat and worsens with swallowing. has been eating softer foods). Negative for hearing loss and nosebleeds. Has been noticing flushing in face Eyes: Positive for discharge. Respiratory: Positive for cough, chest tightness and wheezing. Cardiovascular: Positive for palpitations. Negative for leg swelling. Neurological: Positive for headaches. Vital Signs BP 118/74 Pulse 103 Temp 36.4 C (97.6 F) (Oral) Ht 182.9 cm (6') Wt 102.5 kg (226 lb) SpO2 94% BMI 30.65 kg/m Physical Exam Physical Exam Vitals reviewed. Constitutional: General: He is not in acute distress. Appearance: He is not ill-appearing or toxic-appearing. HENT: Head: Normocephalic. Right Ear: No middle ear effusion. Tympanic membrane is erythematous and bulging. Left Ear: No middle ear effusion. Tympanic membrane is not erythematous, retracted or bulging. Nose: Right Turbinates: Not enlarged or swollen. Left Turbinates: Not enlarged or swollen. Right Sinus: Frontal sinus tenderness present. No maxillary sinus tenderness. Left Sinus: No maxillary sinus tenderness or frontal sinus tenderness. Mouth/Throat: Lips: Ocean. No lesions. Mouth: Mucous membranes are moist. Pharynx: Oropharynx is clear. No pharyngeal swelling or posterior oropharyngeal erythema. Cardiovascular: Rate and Rhythm: Regular rhythm. Tachycardia present. Heart sounds: No murmur heard. Pulmonary: Effort: Pulmonary effort is normal. No accessory muscle usage or respiratory distress. Breath sounds: Normal breath sounds. No decreased breath sounds, wheezing, rhonchi or rales. Musculoskeletal: Cervical back: Neck supple. Right lower leg: No edema. Left lower leg: No edema. Lymphadenopathy: Cervical: No cervical adenopathy. Past Medical, Family, Surgery and Social History Past Medical History: Diagnosis Date Abnormal gait 07/02/2011 Acute pancreatitis 08/12/2020 Allergic rhinitis Anxiety Autism Back problem Bipolar I disorder ([facility]) 01/17/2017 Chipped tooth upper molar chipped Chronic pain disorder Chronic sinusitis COVID-19 2019 Depression Developmental delay disorder Deviated nasal septum 07/30/2022 Diabetes mellitus, type 2 ([facility]) Disc displacement, lumbar 08/20/2019 DNS (deviated nasal [...] Obstructive sleep apnea syndrome 07/02/2011 Seizure disorder ([facility]) states in childhood, denies seizures as an adult Sleep apnea Smoker Spinal stenosis of lumbar region 08/2023 Tachycardia 08/12/2020 Past Surgical History: Procedure Laterality Date BACK SURGERY CHOLECYSTECTOMY INJECTION BLOCK EPIDURAL STEROID LUMBAR/SACRAL: left L 5,1 nroot Left 09/23/2020 Performed by Titus Pritchett MD at [facility] INJECTION BLOCK EPIDURAL STEROID LUMBAR/SACRAL: Left L 5/1 Nroot Left 10/28/2020 Performed by Titus Pritchett MD at [facility] INJECTION BLOCK NERVE MEDIAL BRANCH: bilat L 1/2 5/ Bilateral 04/14/2021 Performed by Titus Pritchett MD at [facility] IN[facility]CTION BLOCK NERVE MEDIAL BRANCH: bilat L 1/2 _ 5/ Bilateral 03/03/2021 Performed by Titus Pritchett MD at [facility] IN[facility]CTION BLOCK SACROILIAC JOINT Bilateral 12/14/2022 Performed by Titus Pritchett MD at [facility] IN[facility]CTION BLOCK SACROILIAC JOINT Bilateral 11/03/2021 Performed by Titus Pritchett MD at [facility] INJECTION BLOCK SACROILIAC JOINT Bilateral 09/29/2021 Performed by Titus Pritchett MD at [facility] INJECTION LUMBAR OR SACRAL EPIDURAL BLOCK WITH STEROIDS: L12 DANA N/A 09/25/2019 Performed by Titus Pritchett MD at [facility] INJECTION LUMBAR OR SACRAL EPIDURAL BLOCK WITH STEROIDS: L12 DANA N/A 08/28/2019 Performed by Titus Pritchett MD at [facility] IN[facility] SPINE TRANSFORAMINAL: right L 1,2 Nroot Right 09/13/2023 Performed by Titus Pritchett MD at [facility] INSERTION PERMANENT STIMULATOR SPINAL CORD N/A 04/17/2024 Performed by Titus Pritchett MD at [facility] INSERTION STIMULATOR SPINAL CORD- TRIAL N/A 02/21/2024 Performed by Titus Pritchett MD at [facility] NECK SURGERY Fusion C4-7 OPEN FUNCTIONAL RHINOPLASTY SEPTOPLASTY NOSE WITH REPAIR OF TURBINATE FRACTURE N/A 03/11/2023 Performed by Marlee Vazquez DO at [facility] RADIOFREQUENCY ABLATION SPINAL: left L 07/23 _ 11/19 Left 10/12/2022 Performed by Titus Pritchett MD at [facility] RADIOFREQUENCY ABLATION SPINAL: left L 07/23 _11/19 Left 06/23/2021 Performed by Titus Pritchett MD at [facility] RADIOFREQUENCY ABLATION SPINAL: left SI Left 12/01/2021 Performed by Titus Pritchett MD at [facility] RADIOFREQUENCY ABLATION SPINAL: right L 07/23 _ 11/19 Right 09/28/2022 Performed by Titus Pritchett MD at [facility] RADIOFREQUENCY ABLATION SPINAL: right L 07/23 _11/19 Right 06/05/2021 Performed by Titus Pritchett MD at [facility] RADIOFREQUENCY ABLATION SPINAL: right SI Right 12/15/2021 Performed by Titus Pritchett MD at [facility] REDUCTION TURBINATE Bilateral 03/11/2023 Performed by Marlee Vazquez DO at [facility] REVISION STIMULATOR SPINAL CORD N/A 08/14/2024 Performed by Titus Pritchett MD at [facility] Family History Problem Relation Age of Onset [...] Interpersonal Safety: Unknown (10/10/2023) [facility] Humiliation, Afraid, Rape, and Kick questionnaire [...] hours as needed for pain or headaches. aspirin 81 mg Take 1 tablet (81 [...] tablet Chew 1 tablet (200 mg total) andswallow in the morning. cetirizine (ZyrTEC) 10 mg tablet Take 1 tablet (10 mg total) by mouth in the morning. divalproex (DEPAKOTE) 500 mg EC tablet Take [...] nasal spray Administer 2 sprays into each nostrilin the morning. Indications: allergic conjunctivitis, inflammation of [...] by mouth in the morning and 1 tablet(500 mg total) in the evening. Take with meals. omeprazole (PriLOSEC) 20 mg capsule Take 1 capsule (20 mg total) by mouth every morning before breakfast. ondansetron ODT (ZOFRAN ODT) 4 mg disintegrating [...] (PREPARATION H,PE,CB,) 0.25-88.44 % suppository Insert 1 suppositoryinto the rectum every 6 (six) hours as [...] tablet (20 mg total) by mouth nightly. tiZANidine (ZANAFLEX) 2 mg tablet Take 1 tablet (2 mg total) by mouth in the morning and 1 tablet (2 mg total) before bedtime. Do all this for 10 days. traZODone (DESYREL) 50 mg tablet Take 1 tablet (50 mg total) by mouth nightly. No current facility-administered medications on file prior to visit. Assessment/Plan: 1. Acute bronchitis, unspecified organism - azithromycin (ZITHROMAX) 250 mg tablet; Take 2 tablets the first day, then 1 tablet daily for 4 days. Dispense: 6 tablet; Refill: 0 - dextromethorphan-guaiFENesin (MUCINEX DM) 30-600 mg tablet extended release 12 hr; Take 1 tablet by mouth every 12 (twelve) hours as needed (cough). Dispense: 28 each; Refill: 0 - predniSONE (DELTASONE) 20 mg tablet; Take 1 tablet (20 mg total) by mouth in the morning for 5 days. Dispense: 5 tablet; Refill: 0 2. Acute non-recurrent frontal sinusitis - albuterol (PROVENTIL HFA;VENTOLIN HFA) 90 mcg/actuation inhaler; Inhale 2 puffs every 6 (six) hours as needed for wheezing. Dispense: 18 g; Refill: 0 - azithromycin (ZITHROMAX) 250 mg tablet; Take 2 tablets the first day, then 1 tablet daily for 4 days. Dispense: 6 tablet; Refill: 0 Acute bronchitis Patient with symptoms of cough shortness of breath, wheezing noted in right lung base on exam. He completed 1 course of a Z-Nitesh. To ensure completeness of for treatment for frontal sinusitis will prescribe a second course of Z-Nitesh to be taken starting October 18, 2024. Patient to start on prednisone 20 mg 1 tablet daily for 5 days for inflammation and use Mucinex DM 30 to 601 tablet every 12 hours as needed for cough. There are no Patient Instructions on file for this visit. Follow up: Keep 11/09/24 appointment - Rand Recinos DO 10/14/24 12:54 PM documented in this encounterVermont State HospitalProsetta [id number] NoteUT Cardiology - [facility] Subjective Laxmi Torres is a 48 y.o. year old male patient being seen for Palpitations , Hypertension , and hyperlipidemia Patient Active Problem List Diagnosis Intermittent palpitations Hypertension Abnormal gait Abnormal glucose level Abnormal pigmentation of skin Allergic rhinitis Anxiety state Cervical radiculopathy Chronic tonsillitis Closed fracture of nasal septum Cervical spondylosis without myelopathy Deviated nasal septum Disc displacement, lumbar Disorder of sacrum Displacement of lumbar intervertebral disc without myelopathy Gastroesophageal reflux disease Hemorrhoids without complication Hyperlipidemia Hypersomnia Hypertrophy of both inferior nasal turbinates Intellectual disability Intellectual functioning disability Leukopenia Low back pain Lumbar post-laminectomy syndrome Lumbosacral spondylosis without myelopathy Major depression, single episode Mood disorder Nasal congestion Benign neoplasm of skin Nonspecific abnormal finding Obesity, morbid (CMS/HCC) Obstructive sleep apnea syndrome Osteoarthritis Other chronic pain Other chronic sinusitis Neck pain Pain in limb Parkinson's disease (CMS/HCC) Bipolar I disorder (CMS/HCC) Seizure disorder (CMS/HCC) Sensorineural hearing loss (SNHL) of both ears Suicide attempt by hanging (CMS/HCC) Tachycardia Trapezius muscle strain, left, initial encounter Type 2 diabetes mellitus without complication, without long-term current use of insulin (CMS/HCC) HPI Patient has a history of palpitation possible inappropriate sinus tachycardia, hypertension, hyperlipidemia, type 2 diabetes mellitus, seizure disorder and mood disorder Patient is here today with his caregiver for follow-up visit. He reports that he has exertional dyspnea with climbing stairs or walking fast. On the other hand he is able to vacuum without problem. He denies chest discomfort at rest or with exertion. He does not exercise on a regular basis. He denies orthopnea. He wakes up gasping for air. He also snores and feels tired during the daytime. He is going to have sleep study next month. He admits racing in the heart when he is upset or excited. He denies dizziness or syncope or near syncope. He denies legs edema legs comfort on exertion He vapes nicotine for a while however he started smoking cigarettes about 2 packs/week since his mother about 3 years ago. He denies alcohol or illicit drugs ROS All systems were reviewed and they were negative except for the positive findings noted above in the history Past Medical History: Diagnosis Date Diabetes mellitus (CMS/HCC) Hyperlipidemia 05/26/2018 Hypertension Seizures (CMS/HCC) Past Surgical History: Procedure Laterality Date ANTERIOR CERVICAL DISCECTOMY W/ FUSION 03/31/2014 C4-C5, C5-C6, C6-C7 ACDF CERVICAL DISCECTOMY 09/29/2018 screw revision C6-C7 CHOLECYSTECTOMY LUMBAR FUSION 03/05/2016 L5-S1 laminectomy and fusion LUMBAR LAMINECTOMY 01/12/2020 L2-L3 laminectomy, revision L3-S1 laminectomy with removal of S1 screws and placement of new hardware L2-L5, Dr. [place], Family History Adopted: Yes Social History Tobacco Use Smoking status: Every Day Current packs/day: 0.25 Types: Cigarettes Passive exposure: Current Smokeless tobacco: Never Vaping Use Vaping status: Never Used Substance Use Topics Alcohol use: Never Drug use: Never Allergies Allergies Allergen Reactions Penicillins Other Sulfa (Sulfonamide Antibiotics) Other Medications Current Outpatient Medications: aspirin 81 mg EC tablet, in the morning., Disp: , Rfl: benztropine (Cogentin) 1 mg tablet, benztropine 1 mg tablet, Disp: , Rfl: divalproex (Depakote) 500 mg EC tablet, divalproex 500 mg tablet,delayed release, Disp: , Rfl: fenofibrate (Lofibra) 54 mg tablet, Take 54 mg by mouth in the morning., Disp: , Rfl: gabapentin (Neurontin) 600 mg [...] (CAPRON DM ORAL), Take 10 mg by (more content not included)...[facility]03-18-2025 Miscellaneous Notes* Telephone Encounter - Rand Blanc RN - 10/06/2024 5:13 PM EDT ----- Message from Sherly sent at 10/06/2024 5:10 PM EDT ----- Contract: 148 He has had a severe migraine for a couple weeks. went to Er and got a round of medication. And wentand seen family doctor after that and got a stronger dose of toradoil and it's not working at all..Even Worse now. Nauseous. Sharp pains, blurry vision, direct light hurts his eyes. * Telephone Encounter - Rand Blanc RN - 10/06/2024 5:13 PM EDT Contract: 148 Bad migrane Vision difficulties, light sensitive. Nausea, light sensitive. Took his toridol yesterday. He has not taken any pain medication at this time. Reason for Disposition Similar to previously diagnosed muscle-tension headaches Protocols used: [id number] Per protocol Home care reviewed with the patient. He was referred to the ED of he has not had relief within 2 hours of taking his Toradol. Caller states he understands. documented in this encounterMarietta [facility] Hospital03-18-2025 Telephone encounter Note* Telephone Encounter - Rand Blanc RN - 10/06/2024 5:13 PM EDT ----- Message from Sherly sent at 10/06/2024 5:10 PM EDT ----- Contract: 148 He has had a severe migraine for a couple weeks. went to Er and got a round of medication. And wentand seen family doctor after that and got a stronger dose of toradoil and it's not working at all..Even Worse now. Nauseous. Sharp pains, blurry vision, direct light hurts his eyes. [facility]03-18-2025 Telephone encounter Note* Telephone Encounter - Rand Blanc RN - 10/06/2024 5:13 PM EDT Contract: 148 Bad migrane Vision difficulties, light sensitive. Nausea, light sensitive. Took his toridol yesterday. He has not taken any pain medication at this time. Reason for Disposition Similar to previously diagnosed muscle-tension headaches Protocols used: [id number] Per protocol Home care reviewed with the patient. He was referred to the ED of he has not had relief within 2 hours of taking his Toradol. Caller states he understands. [facility]03-18-2025 Miscellaneous Notes* Telephone Encounter - Debra Rosales CMA - 10/06/2024 1:32 PM EDT Patient called stating that his headaches are getting worse since being seen 10/02. Wanting to know if there is anything else he could do to try and help with these pains. Please review and advise? * Telephone Encounter - Rand Recinos DO - 10/06/2024 1:32 PM EDT Please let Mr Torres know that I sent into [facility] prescription for a muscle relaxer tizanidine 2 mg 1tablet twice daily for 10 days to take for headache. He should continue with Ibuprofen and exercises and heat. * Telephone Encounter - Debra Rosales CMA - 10/06/2024 1:32 PM EDT Called and informed patient of Rx sent. Patient stated he did go to the [facility] last night. Didnot want to come in for another appointment at this time, would like to see if medication helps first. documented in this encounterMarietta Memorial Hospital03-18-2025 Telephone encounter Note* Telephone Encounter - Debra Rosales CMA - 10/06/2024 1:32 PM EDT Patient called stating that his headaches are getting worse since being seen 10/02. Wanting to know if there is anything else he could do to try and help with these pains. Please review and advise? [facility]03-18-2025 Telephone encounter Note* Telephone Encounter - Rand Recinos DO - 10/06/2024 1:32 PM EDT Please let Mr Torres know that I sent into [facility] prescription for a muscle relaxer tizanidine 2 mg 1tablet twice daily for 10 days to take for headache. He should continue with Ibuprofen and exercises and heat. [facility]03-18-2025 Telephone encounter Note* Telephone Encounter - Debra Rosales CMA - 10/06/2024 1:32 PM EDT Called and informed patient of Rx sent. Patient stated he did go to the [facility] last night. Didnot want to come in for another appointment at this time, would like to see if medication helps first. [facility]03-14-2025 History of Present illness Narrative* Rand Recinos, - 10/02/2024 8:30 AM EDT Images from the original note were not included. [facility] [address] [place] [address] [place] [address] Patient: Laxmi Torres Date of : 1975 Encounter Date: 10/02/2024 Subjective: Chief Complaint Chief Complaint Patient presents with Headache History of Present Illness Laxmi Torres is a 48 y.o. male, established patient , that presents to the office for ERfollow up for headache. Patient seen at [facility] Emergency Department on September 25, 2024. During emergency room visit, patient had a CT scan of the head without contrast which did not show anyacute changes. Patient was treated with with IV Toradol, IV Zofran, and IV Benadryl. After CT imaging patient also received IV Dilaudid prior to discharge Headache Headache pattern: Onset last week. Seen at [facility] ED on 09/25. Denies having headaches like [...] Anxiety Autism Back problem Bipolar I disorder ([facility]) 01/17/2017 Chipped tooth upper molar chipped Chronic pain disorder Chronic sinusitis COVID-19 2019 Depression Developmental delay disorder Deviated nasal septum 07/30/2022 Diabetes mellitus, type 2 ([facility]) Disc displacement, lumbar 08/20/2019 DNS (deviated nasal septum) alcohol syndrome GERD (gastroesophageal reflux disease) Hemorrhoids without complication 08/12/2020 Hip pain, bilateral Hyperlipidemia Hypersomnia Hypertension Hypokalemia Impulse control disorder in adult Injury of back Intellectual functioning disability 07/02/2011 Leukopenia 03/04/2023 Low back pain Lumbar post-laminectomy syndrome 08/06/2011 Mild oppositional defiant disorder with angry or irritable mood Nasal congestion Nasal turbinate hypertrophy Neck pain Bogota's syndrome Obstructive sleep apnea syndrome 07/02/2011 Seizure disorder (CMS-HCC) states in childhood, denies seizures as an adult Sleep apnea Smoker Spinal stenosis of lumbar region 08/2023 Tachycardia 08/12/2020 Past Surgical History: Procedure Laterality Date BACK SURGERY CHOLECYSTECTOMY INJECTION BLOCK EPIDURAL STEROID LUMBAR/SACRAL: left L 5,1 nroot Left 09/23/2020 Performed by Titus Pritchett MD at [facility] INJECTION BLOCK EPIDURAL STEROID LUMBAR/SACRAL: Left L 5/1 Nroot Left 10/28/2020 Performed by Titus Pritchett MD at [facility] INJECTION BLOCK NERVE MEDIAL BRANCH: bilat L 1/2 / Bilateral 04/14/2021 Performed by Titus Pritchett MD at [facility] INJECTION BLOCK NERVE MEDIAL BRANCH: bilat L 1/2 _ 11/19 Bilateral 03/03/2021 Performed by Titus Pritchett MD at [facility] INJECTION BLOCK SACROILIAC JOINT Bilateral 12/14/2022 Performed by Titus Pritchett MD at [facility] INJECTION BLOCK SACROILIAC JOINT Bilateral 11/03/2021 Performed by Titus Pritchett MD at [facility] INJECTION BLOCK SACROILIAC JOINT Bilateral 09/29/2021 Performed by Titus Pritchett MD at [facility] INJECTION LUMBAR OR SACRAL EPIDURAL BLOCK WITH STEROIDS: L12 DANA N/A 09/25/2019 Performed by Titus Pritchett MD at [facility] LUMBAR OR SACRAL EPIDURAL BLOCK WITH STEROIDS: L12 DANA N/A 08/28/2019 Performed by Titus Pritchett MD at [facility] SPINE TRANSFORAMINAL: right L 1,2 Nroot Right 09/13/2023 Performed by Titus Pritchett MD at [facility] INSERTION PERMANENT STIMULATOR SPINAL CORD N/A 04/17/2024 Performed by Titus Pritchett MD at [facility] INSERTION STIMULATOR SPINAL CORD- TRIAL N/A 02/21/2024 Performed by Titus Pritchett MD at [facility] NECK SURGERY Fusion C4-7 OPEN FUNCTIONAL RHINOPLASTY SEPTOPLASTY NOSE WITH REPAIR OF TURBINATE FRACTURE N/A 03/11/2023 Performed by Marlee Vazquez DO at [facility] RADIOFREQUENCY ABLATION SPINAL: left L 1/2 _ / Left 10/12/2022 Performed by Titus Pritchett MD at [facility] RADIOFREQUENCY ABLATION SPINAL: left L 1/2 _11/19 Left 06/23/2021 Performed by Titus Pritchett MD at [facility] RADIOFREQUENCY ABLATION SPINAL: left SI Left 12/01/2021 Performed by Titus Pritchett MD at [facility] RADIOFREQUENCY ABLATION SPINAL: right L 07/23 _ 11/19 Right 09/28/2022 Performed by Titus Pritchett MD at [facility] RADIOFREQUENCY ABLATION SPINAL: right L 07/23 _11/19 Right 06/05/2021 Performed by Titus Pritchett MD at [facility] RADIOFREQUENCY ABLATION SPINAL: right SI Right 12/15/2021 Performed by Titus Pritchett MD at [facility] REDUCTION TURBINATE Bilateral 03/11/2023 Performed by Marlee Vazquez DO at [facility] REVISION STIMULATOR SPINAL CORD N/A 08/14/2024 Performed by Titus Pritchett MD at [facility] Family History Problem Relation Age of Onset [...] Interpersonal Safety: Unknown (10/10/2023) Received from [facility], [facility] [employer] Humiliation, Afraid, Rape, and Kick questionnaire Fear [...] tablet Chew 1 tablet (200 mg total) andswallow in the morning. cetirizine (ZyrTEC) 10 mg [...] nasal spray Administer 2 sprays into each nostrilin the morning. Indications: allergic conjunctivitis, inflammation of [...] by mouth in the morning and 1 tablet(500 mg total) in the evening. Take with [...] (PREPARATION H,PE,CB,) 0.25-88.44 % suppository Insert 1 suppositoryinto the rectum every 6 (six) hours as [...] for headache. Keep November [address] UNDERWOOD - Rand Recinos DO 10/02/24 1:52 PM documented in this [facility]03-14-2025 Instructions* Patient Instructions* Rand Recinos DO - 10/02/2024 8:30 AM EDT Use heat to left trapezius for 15-20 minutes 3 times per day for 10 days then stop. Start on Ibuprofen 600 mg 1 tablet every 8 hrs as needed for headache. documented in this encounterMarietta [facility] Hospital03-11-2025 Miscellaneous Notes* Telephone Encounter - Debra Rosales CMA - 09/29/2024 9:28 AM EDT Patients caregiver called stating that the new prescription for omeprazole is stated to take as needed when in past Laxmi has taken 1, 20mg tablet daily. Wanting to know if he was supposed to be taking this as needed or once daily. Please advise? * Telephone Encounter - Justin Underwood MD - 09/29/2024 9:28 AM EDT Order/Rx updated. Should be scheduled once per day. Please call and notify. JUSTIN Lam MD 10/02/24 * Telephone Encounter - Debra Rosales CMA - 09/29/2024 9:28 AM EDT Patient and Caregiver notified when in person for appointment on 10/02. documented in this encounterMarietta [facility] Hospital03-11-2025 Telephone encounter Note* Telephone Encounter - Debra Rosales CMA - 09/29/2024 9:28 AM EDT Patients caregiver called stating that the new prescription for omeprazole is stated to take as needed when in past Laxmi has taken 1, 20mg tablet daily. Wanting to know if he was supposed to be taking this as needed or once daily. Please advise? [facility]03-11-2025 Telephone encounter Note* Telephone Encounter - Justin Underwood MD - 09/29/2024 9:28 AM EDT Order/Rx updated. Should be scheduled once per day. Please call and notify. JUSTIN Lam MD 10/02/24 [facility]03-11-2025 Telephone encounter Note* Telephone Encounter - Debra Rosales CMA - 09/29/2024 9:28 AM EDT Patient and Caregiver notified when in person for appointment on 10/02. [facility]03-10-2025 Miscellaneous Notes* Telephone Encounter - Bernie Juan CNA - 09/28/2024 2:50 PM EDT New Script needed. Next scheduled appointment 11/09/2024 documented in this encounterMarietta [facility] Hospital03-10-2025 Telephone encounter Note* Telephone Encounter - Bernie Juan CNA - 09/28/2024 2:50 PM EDT New Script needed. Next scheduled appointment 11/09/2024 [facility]02-20-2025 History of Present illness Narrative* BRUCE Servin - 09/10/2024 1:00 PM EST [facility] [address] [place] [address] Patient: Laxmi Torres Sex: male : 1975 [...] is a chronic (2016 (or before per privacy attorney)) problem. The current episode started more than 1year ago. The problem occurs rarely. The problem has been rapidly improving since onset. The pain is present in the lumbar spine, sacro- iliac and gluteal. The quality of the pain [...] weakness. Risk factors include lack of exercise, obesityand sedentary lifestyle (osteoarthritis). He has tried ice, [...] Anxiety Autism Back problem Bipolar I disorder ([facility]) 01/17/2017 Chipped tooth upper molar chipped Chronic pain disorder Chronic sinusitis COVID-19 2019 Depression Developmental delay disorder Deviated nasal septum 07/30/2022 Diabetes mellitus, type 2 ([facility]) Disc displacement, lumbar 08/20/2019 DNS (deviated nasal [...] Obstructive sleep apnea syndrome 07/02/2011 Seizure disorder ([facility]) states in childhood, denies seizures as an adult Sleep apnea Smoker Spinal stenosis of lumbar region 08/2023 Tachycardia 08/12/2020 Past Surgical History: Procedure Laterality Date BACK SURGERY CHOLECYSTECTOMY INJECTION BLOCK EPIDURAL STEROID LUMBAR/SACRAL: left L 5,1 nroot Left 09/23/2020 Performed by Titus Pritchett MD at [facility] INJECTION BLOCK EPIDURAL STEROID LUMBAR/SACRAL: Left L 5/1 Nroot Left 10/28/2020 Performed by Titus Pritchett MD at [facility] INJECTION BLOCK NERVE MEDIAL BRANCH: bilat L 1/2 / Bilateral 04/14/2021 Performed by Titus Pritchett MD at [facility] INJECTION BLOCK NERVE MEDIAL BRANCH: bilat L 1/2 _ 11/19 Bilateral 03/03/2021 Performed by Titus Pritchett MD at [facility] INJECTION BLOCK SACROILIAC JOINT Bilateral 12/14/2022 Performed by Titus Pritchett MD at [facility] INJECTION BLOCK SACROILIAC JOINT Bilateral 11/03/2021 Performed by Titus Pritchett MD at [facility] INJECTION BLOCK SACROILIAC JOINT Bilateral 09/29/2021 Performed by Titus Pritchett MD at [facility] LUMBAR OR SACRAL EPIDURAL BLOCK WITH STEROIDS: L12 DANA N/A 09/25/2019 Performed by Titus Pritchett MD at [facility] INJECTION LUMBAR OR SACRAL EPIDURAL BLOCK WITH STEROIDS: L12 DANA N/A 08/28/2019 Performed by Titus Pritchett MD at [facility] INJECTION SPINE TRANSFORAMINAL: right L 1,2 Nroot Right 09/13/2023 Performed by Titus Pritchett MD at [facility] INSERTION PERMANENT STIMULATOR SPINAL CORD N/A 04/17/2024 Performed by Titus Pritchett MD at [facility] INSERTION STIMULATOR SPINAL CORD- TRIAL N/A 02/21/2024 Performed by Titus Pritchett MD at [facility] NECK SURGERY Fusion C4-7 OPEN FUNCTIONAL RHINOPLASTY SEPTOPLASTY NOSE WITH REPAIR OF TURBINATE FRACTURE N/A 03/11/2023 Performed by Marlee Vazquez DO at [facility] RADIOFREQUENCY ABLATION SPINAL: left L /2 _ 11/19 Left 10/12/2022 Performed by Titus Pritchett MD at [facility] RADIOFREQUENCY ABLATION SPINAL: left L /2 _11/19 Left 06/23/2021 Performed by Titus Pritchett MD at [facility] RADIOFREQUENCY ABLATION SPINAL: left SI Left 12/01/2021 Performed by Titus Pritchett MD at [facility] RADIOFREQUENCY ABLATION SPINAL: right L /2 _ 11/19 Right 09/28/2022 Performed by Titus Pritchett MD at [facility] RADIOFREQUENCY ABLATION SPINAL: right L /2 _11/19 Right 06/05/2021 Performed by Titus Pritchett MD at [facility] RADIOFREQUENCY ABLATION SPINAL: right SI Right 12/15/2021 Performed by Titus Pritchett MD at [facility] REDUCTION TURBINATE Bilateral 03/11/2023 Performed by Marlee Vazquez DO [facility] REVISION STIMULATOR SPINAL CORD N/A 08/14/2024 Performed by Titus Pritchett MD at [facility] Allergies Allergen Reactions Penicillins Hives Unknown reaction [...] Interpersonal Safety: Unknown (10/10/2023) [facility] Humiliation, Afraid, Rape, and Kick questionnaire [...] during discussion, demonstrated appropriate cognitive reasoning and understandingof the medical condition by asking appropriate questions [...] monitoring for toxicity We do not currently prescribeany controlled substance from this practice. Patient reports [...] who performed the above service. Provider Statement: I, BRUCE SERVIN, personally performed the services described in the documentation, as scribed by Abril Durán CNA in my presence, and it is both accurate and complete. Abril Durán CNA 09/10/24 1405 BRUCE Servin 09/15/24 1146 documented in this encounterMarietta Memorial Hospital02-19-2025 Miscellaneous Notes* Telephone Encounter - Ofelia Barrientos RN - 09/09/2024 11:35 AM EST Pt calls stating stimulator is sticking out, bulging causing discomfort. Spoke with myla, she states the last time she saw pt and site, it appeared appropriate; pt is to call [employer] to discuss discomfort.. PVU * Telephone Encounter - Ofelia Barrientos RN - 09/09/2024 11:35 AM EST Received call from alex from [employer], she requests this office address pts complaints [...] notified of Laxmi's appt documented in this encounterKettering Health DaytonGHash.[place] [facility] [id number] Telephone encounter Note* Telephone Encounter - Ofelia Barrientos RN - 09/09/2024 11:35 AM EST Pt calls stating stimulator is sticking out, bulging causing discomfort. Spoke with myla, she states the last time she saw pt and site, it appeared appropriate; pt is to call [employer] to discuss discomfort.. PVU [facility] [employer] [id number] Telephone encounter Note* Telephone Encounter - Ofelia Barrientos RN - 09/09/2024 11:35 AM EST Received call from alex from [employer], she requests this office address pts complaints by bringing him in to assess. Called pt, he is unclear in his complaints other than saying discomfort at SCS site when he is sitting. Right calf pain 4/10, pain around stimulator 6/10. Pt is scheduled to see Cong on 09/10/2024 at 1 p.m. Pt, pt caregiver Marco, [employer] rep Alex notified of Laxmi's appt [facility] [employer] [facility] [id number] History of Present illness Narrative* Bonny Santo - 09/07/2024 3:37 PM EST When was the last Refill? Tums- 08/15/23 Flonase-08/16/23 Is this medication Historical? Paulina of preferred Pharmacy? [facility] in [place] When was the last OV with provider? 05/11/24 When is the next scheduled visit? 11/09/24 Both requested meds have been pended for approval. Thank you, Bonny Santo RN [facility] Medicine Chronic Care Nurse Cement Sack Breaker [phone] documented in this encounterMarietta Memorial Hospital02-12-2025 History of Present illness Narrative* Myla Rm PA-C - 09/02/2024 12:45 PM EST [facility] [address] [place] [address] Patient: Laxmi Torres Sex: male : 1975 [...] is a chronic (2016 (or before per privacy attorney)) problem. The current episode started more than 1year ago. The problem occurs rarely. The problem has been rapidly improving since onset. The pain is present in the lumbar spine, sacro- iliac and gluteal. The quality of the pain [...] 12/2019 w/ mod relief. ., flexeril, lidocaine, toradol)for the symptoms. The treatment provided mild (Left L5, S1 NRI on 10/28/2020 w/100% relief of back & leg pain. ) relief. Shoulder Pain The pain is present in the left arm, left elbow, left wrist, left hand, left fingers and left shoulder. This is a new problem. The current episode started 1 to 4 weeks ago (08/2024). There has been nohistory of extremity trauma. The problem occurs constantly. [...] Anxiety Autism Back problem Bipolar I disorder ([facility]) 01/17/2017 Chipped tooth upper molar chipped Chronic pain disorder Chronic sinusitis COVID-19 2019 Depression Developmental delay disorder Deviated nasal septum 07/30/2022 Diabetes mellitus, type 2 ([facility]) Disc displacement, lumbar 08/20/2019 DNS (deviated nasal septum) alcohol syndrome GERD (gastroesophageal reflux disease) Hemorrhoids without complication 08/12/2020 Hip pain, bilateral Hyperlipidemia Hypersomnia Hypertension Hypokalemia Impulse control disorder in adult Injury of back Intellectual functioning disability 07/02/2011 Leukopenia 03/04/2023 Low back pain Lumbar post-laminectomy syndrome 08/06/2011 Mild oppositional defiant disorder with angry or irritable mood Nasal congestion Nasal turbinate hypertrophy Neck pain Bogota's syndrome Obstructive sleep apnea syndrome 07/02/2011 Seizure disorder ([facility]) states in childhood, denies seizures as an adult Sleep apnea Smoker Spinal stenosis of lumbar region 08/2023 Tachycardia 08/12/2020 Past Surgical History: Procedure Laterality Date BACK SURGERY CHOLECYSTECTOMY INJECTION BLOCK EPIDURAL STEROID LUMBAR/SACRAL: left L 5,1 nroot Left 09/23/2020 Performed by Titus Pritchett MD at [facility] IN[facility]CTION BLOCK EPIDURAL STEROID LUMBAR/SACRAL: Left L 5/1 Nroot Left 10/28/2020 Performed by Titus Pritchett MD at [facility] IN[facility]CTION BLOCK NERVE MEDIAL BRANCH: bilat L 1/2 5/ Bilateral 04/14/2021 Performed by Titus Pritchett MD at [facility] IN[facility] BLOCK NERVE MEDIAL BRANCH: bilat L 1/2 _ / Bilateral 03/03/2021 Performed by Titus Pritchett MD at [facility] IN[facility] BLOCK SACROILIAC JOINT Bilateral 12/14/2022 Performed by Titus Pritchett MD at [facility] BLOCK SACROILIAC JOINT Bilateral 11/03/2021 Performed by Titus Pritchett MD at [facility] IN[facility] BLOCK SACROILIAC JOINT Bilateral 09/29/2021 Performed by Titus Pritchett MD at [facility] LUMBAR OR SACRAL EPIDURAL BLOCK WITH STEROIDS: L12 DANA N/A 09/25/2019 Performed by Titus Pritchett MD at [facility] IN[facility]CTION LUMBAR OR SACRAL EPIDURAL BLOCK WITH STEROIDS: L12 DANA N/A 08/28/2019 Performed by Titus Pritchett MD at [facility] INJECTION SPINE TRANSFORAMINAL: right L 1,2 Nroot Right 09/13/2023 Performed by Titus Pritchett MD at [facility] INSERTION PERMANENT STIMULATOR SPINAL CORD N/A 04/17/2024 Performed by Titus Pritchett MD at [facility] INSERTION STIMULATOR SPINAL CORD- TRIAL N/A 02/21/2024 Performed by Titus Pritchett MD at [facility] NECK SURGERY Fusion C4-7 OPEN FUNCTIONAL RHINOPLASTY SEPTOPLASTY NOSE WITH REPAIR OF TURBINATE FRACTURE N/A 03/11/2023 Performed by Marlee Vazquez DO at [facility] RADIOFREQUENCY ABLATION SPINAL: left L /2 _ 11/19 Left 10/12/2022 Performed by Titus Pritchett MD at [facility] RADIOFREQUENCY ABLATION SPINAL: left L /2 _11/19 Left 06/23/2021 Performed by Titus Pritchett MD at [facility] RADIOFREQUENCY ABLATION SPINAL: left SI Left 12/01/2021 Performed by Titus Pritchett MD at [facility] RADIOFREQUENCY ABLATION SPINAL: right L /2 _ 11/19 Right 09/28/2022 Performed by Titus Pritchett MD at [facility] RADIOFREQUENCY ABLATION SPINAL: right L /2 _11/19 Right 06/05/2021 Performed by Titus Pritchett MD at [facility] RADIOFREQUENCY ABLATION SPINAL: right SI Right 12/15/2021 Performed by Titus Pritchett MD at [facility] REDUCTION TURBINATE Bilateral 03/11/2023 Performed by Marlee Vazquez DO at [facility] REVISION STIMULATOR SPINAL CORD N/A 08/14/2024 Performed by Titus Pritchett MD at [facility] Allergies Allergen Reactions Penicillins Hives Unknown reaction [...] Interpersonal Safety: Unknown (10/10/2023) [facility] Humiliation, Afraid, Rape, and Kick questionnaire [...] shld 08/2023), back pain, gait problem (slightly offgait, denies falls) and stiffness. Skin: Negative. Neurological: Positive for numbness (left hand). Negative for tingling and weakness. Hematological: Negative. Does not bruise/bleed easily. Psychiatric/Behavioral: Negative. Negative for self-injury and suicidal ideas. Has an licensed sales assistant for adls r/t cognitive deficit Vital [...] during discussion, demonstrated appropriate cognitive reasoning and understandingof the medical condition by asking appropriate questions [...] external rotation of the shoulder with active andpassive motion which is consistent with some of [...] spine and paraspinal musculature. Pain is elicited withflexion, extension, and lateral rotation of the lumbar [...] for the condition being treated. This may i nclude modalities of comfort including moist heat, ultrasound, [...] monitoring for toxicity We do not currently prescribeany controlled substance from this practice. At this [...] accurate and complete. Abril Durán CNA 09/02/24 2081 Abril Durán CNA 09/02/24 1415 Myla Rm PA-C 09/08/24 0952 documented in this encounterMarietta [facility]01-09-2025 Nurse Note* Perioperative Nursing Note - Shellie Pulido RN - 07/30/2024 1:25 PM EST Caregiver Mary accompanied pt to PAT appt. [facility]01-[facility] Miscellaneous Notes* Perioperative Nursing Note - Shellie Pulido RN - 07/30/2024 1:25 PM EST Caregiver Mary accompanied pt to PAT appt. documented in this encounterMarietta Memorial Hospital01-09-2025 Instructions* Patient Instructions* Shellie Pulido RN - 07/30/2024 12:45 PM EST Preoperative Education Checklist- General Surgery date: 08/14/24 Surgery time: 2p Arrival time: 12p 1. Bring a photo ID and your insurance card with you the day of surgery. You will check in at the main lobby of the [facility]- registration desk is straight ahead as soon as you walk in. Tell them you are here for surgery. 2. If you have a Living Will/Durable Power of Shipping Specialist for Health Care that is not on [...] after you have bathed. 5. NO nail bahamian/acrylic on at least one finger. If you are having a hand, wrist or foot surgery then all nail bahamian and artificial/acrylic nails must be removed from [...] least 8 hours and marijuana for 24 hoursprior to arrival for your surgery. 16. If [...] please call the Preadmission Testing office at [phone], Mon.-Fri. 7 a.m.-3 p.m. Leave a voicemail [...] after surgery- do not stop unless directed david your physician. You may also be given [...] is normal. Call your doctor if you noticeany of the following: -Increased redness or hardening [...] water and pat the area dry with aclean towel. -No re-using wash cloths or towels; [...] appointment with your doctor. documented in this encounterMarietta Memorial Hospital01-07-2025 History of Present illness Narrative* Bonny Santo - 07/28/2024 3:39 PM EST When was the last Refill? 06/23/24 Is this medication Historical? Paulina of preferred Pharmacy? [facility] in [place] When was the last OV with provider? 05/11/24 When is the next scheduled visit? 11/09/24 Pended Gabapentin 600mg 1 tab PO BID to be sent to [place]. Quantity 60 with 2 refills pended. Thank you, Bonny Santo RN [facility] Family Medicine Chronic Care Nurse Cement Sack Breaker [phone] documented in this encounterMarietta Memorial Hospital01-03-2025 Miscellaneous Notes* Telephone Encounter - Sara Graham RN - 07/24/2024 12:54 PM EST Patient is scheduled for the following: PAT: 07/30/24 at 1245 pm SCS Battery Revision: 08/14/24 at 2 pm (caregiver aware patient to arrive at 12 pm) Follow up appt: 09/02/24 at 1245 pm Marco, caregiver aware of all appointments and that an oral ATB will be sent to the pharmacy on 08/07/24 to begin in the evening (Pharmacy is [facility]) Email sent to [employer]. * Telephone Encounter - Sara Graham RN - 07/24/2024 12:54 PM EST [employer] confirmed that they will be here. * Telephone Encounter - Sara Graham RN - 07/24/2024 12:54 PM EST Oral ATB per Dr. Pritchett's verbal order prepared, ready to sign. Levaquin 500 mg BID x 5 days, #10 documented in this [facility]01-03-2025 Telephone encounter Note* Telephone Encounter - Sara Graham RN - 07/24/2024 12:54 PM EST Patient is scheduled for the following: PAT: 07/30/24 at 1245 pm [facility]CS Battery Revision: 08/14/24 at 2 pm (caregiver aware patient to arrive at 12 pm) Follow up appt: 09/02/24 at 1245 pm Marco, caregiver aware of all appointments and that an oral ATB will be sent to the pharmacy on 08/07/24 to begin in the evening (Pharmacy is [facility]) Email sent to [employer] reps. [facility] CenterPa[facility] Healthcare [id number] Telephone encounter Note* Telephone Encounter - Sara Graham RN - 07/24/2024 12:54 PM EST [employer] confirmed that they will be here. [facility] Centercliniq.ly [id number] Telephone encounter Note* Telephone Encounter - Sara Graham RN - 07/24/2024 12:54 PM EST Oral ATB per Dr. Pritchett's verbal order prepared, ready to sign. Levaquin 500 mg BID x 5 days, #10 [facility] [id number] History of Present illness Narrative* Bonny Santo - 06/29/2024 9:48 AM EST I received a voicemail from Marco Gomez, patient's caregiver, and was told that patient is out of his Victoza and the pharmacy is requesting a new prescription to be sent over. Pended order to be sent to [facility] in [place]. Thanks, Bonny Santo RN [facility] Medicine Chronic Care Nurse Cement Sack Breaker [phone] documented in this encounterMarietta Memorial Hospital12-03-2024 Miscellaneous Notes* Telephone Encounter - Debra Rosales CMA - 06/23/2024 1:06 PM EST Caregiver called on behalf of Laxmi stating that he is need of a new Rx for gabapentin due to himbeing out of refills. Pended in chart. Please advise? documented in this encounterKettering Health DaytonGHash.IO [facility] Specialty [id number] Telephone encounter Note* Telephone Encounter - Debra Rosales CMA - 06/23/2024 1:06 PM EST Caregiver called on behalf of Laxmi stating that he is need of a new Rx for gabapentin due to himbeing out of refills. Pended in chart. Please advise? [facility]11-19-[facility] History of Present illness Narrative* Cinda Steve, SONIA-WALL CRANE OPERATOR - 06/09/2024 2:45 PM EST [facility] [address] [place] [address] Patient: Laxmi Torres Sex: male : 1975 Age: 48 y.o. PCP: JUSTIN UNDERWOOD MD 06/09/2024 Laxmi Torres is here for a(n) follow up to address SCS battery placement. Patient feels device has migrated and turned. [employer] rep here to assess device. She feels [...] is a chronic (2016 (or before per privacy attorney)) problem. The current episode started more than 1year ago. The problem occurs constantly (since battery and since SCS moved ). The problem hasbeen gradually worsening (since battery and since SCS moved ) since onset. The pain is present in the sacro-iliac, lumbar spine and gluteal. The quality of the pain is described as aching and cr amping. The pain does not radiate. The pain [...] Anxiety Autism Back problem Bipolar I disorder ([facility]) 01/17/2017 Chipped tooth upper molar chipped Chronic pain disorder Chronic sinusitis COVID-2019 Depression Developmental delay disorder Deviated nasal septum 07/30/2022 Diabetes mellitus, type 2 ([facility]) Disc displacement, lumbar 08/20/2019 DNS (deviated nasal [...] Obstructive sleep apnea syndrome 07/02/2011 Seizure disorder ([facility]) states in childhood, denies seizures as an adult Sleep apnea Smoker Spinal stenosis of lumbar region 08/2023 Tachycardia 08/12/2020 Past Surgical History: Procedure Laterality Date BACK SURGERY CHOLECYSTECTOMY INJECTION BLOCK EPIDURAL STEROID LUMBAR/SACRAL: left L 5,1 nroot Left 09/23/2020 Performed by Titus Pritchett MD at [facility] INJECTION BLOCK EPIDURAL STEROID LUMBAR/SACRAL: Left L 5/1 Nroot Left 10/28/2020 Performed by Titus Pritchett MD at [facility] INJECTION BLOCK NERVE MEDIAL BRANCH: bilat L 1/2 / Bilateral 04/14/2021 Performed by Titus Pritchett MD at [facility] IN[facility] BLOCK NERVE MEDIAL BRANCH: bilat L 1/2 _ / Bilateral 03/03/2021 Performed by Titus Pritchett MD at [facility] IN[facility] BLOCK SACROILIAC JOINT Bilateral 12/14/2022 Performed by Titsu Pritchett MD at [facility] IN[facility] BLOCK SACROILIAC JOINT Bilateral 11/03/2021 Performed by Titus Pritchett MD at [facility] IN[facility]CTION BLOCK SACROILIAC JOINT Bilateral 09/29/2021 Performed by Titus Pritchett MD at [facility] IN[facility] LUMBAR OR SACRAL EPIDURAL BLOCK WITH STEROIDS: L12 DANA N/A 09/25/2019 Performed by Titus Pritchett MD at [facility] IN[facility]CTION LUMBAR OR SACRAL EPIDURAL BLOCK WITH STEROIDS: L12 DANA N/A 08/28/2019 Performed by Titus Pritchett MD at [facility] IN[facility] SPINE TRANSFORAMINAL: right L 1,2 Nroot Right 09/13/2023 Performed by Titus Pritchett MD at [facility] INSERTION PERMANENT STIMULATOR SPINAL CORD N/A 04/17/2024 Performed by Titus Pritchett MD at [facility] INSERTION STIMULATOR SPINAL CORD- TRIAL N/A 02/21/2024 Performed by Titus Pritchett MD at [facility] NECK SURGERY Fusion C4-7 OPEN FUNCTIONAL RHINOPLASTY SEPTOPLASTY NOSE WITH REPAIR OF TURBINATE FRACTURE N/A 03/11/2023 Performed by Marlee Vazquez DO at [facility] RADIOFREQUENCY ABLATION SPINAL: left L 07/23 _ 11/19 Left 10/12/2022 Performed by Titus Pritchett MD at [facility] RADIOFREQUENCY ABLATION SPINAL: left L 07/23 _11/19 Left 06/23/2021 Performed by Titus Pritchett MD at [facility] RADIOFREQUENCY ABLATION SPINAL: left SI Left 12/01/2021 Performed by Titus Pritchett MD at [facility] RADIOFREQUENCY ABLATION SPINAL: right L 07/23 _ 11/19 Right 09/28/2022 Performed by Titus Pritchett MD at [facility] RADIOFREQUENCY ABLATION SPINAL: right L 07/23 _11/19 Right 06/05/2021 Performed by Titus Pritchett MD at [facility] RADIOFREQUENCY ABLATION SPINAL: right SI Right 12/15/2021 Performed by Titus Pritchett MD at [facility] REDUCTION TURBINATE Bilateral 03/11/2023 Performed by Marlee Vazquez DO at [facility] Allergies Allergen Reactions Penicillins Hives Unknown reaction [...] Interpersonal Safety: Unknown (10/10/2023) Re[facility] Humiliation, Afraid, Rape, and Kick questionnaire [...] during discussion, demonstrated appropriate cognitive reasoning and understandingof the medical condition by asking appropriate questions [...] spine and paraspinal musculature. Pain is elicited withflexion, extension, and lateral rotation of the lumbar [...] charge device despite assistance and recommendations from [facility] today. The medications prescribed have been reviewed for medication interactions/contraindications and/or for upcoming procedures: continue current medication regimen without any changes. DISCUSSION: Treatment options discussed with patient and all questions answered to patient's satisfaction. Prescribed medication that requires intensive monitoring for toxicity We do not currently prescribeany controlled substance from this practice. At this [...] personally performed the services described in the documentation,as scribed by Abril Durán CNA in my presence, and it is both accurate and complete. 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 Marco is wondering if an appointment is needing to be made. Please advise? * Telephone Encounter - Justin Underwood MD - 06/04/2024 1:02 PM EST I can sign off with out an appointment. Paperwork can go in my inbox. Please call and notify patient. Thanks, JUSTIN UNDERWOOD MD 06/22/24 * Telephone Encounter - Debra Rosales CMA - 06/04/2024 1:02 PM EST Paper is going to be dropped of to office. 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 Marco is wondering if an appointment is needing to be made. Please advise? [facility] [id number] Telephone encounter Note* Telephone Encounter - Justin Underwood MD - 06/04/2024 1:02 PM EST I can sign off with out an appointment. Paperwork can go in my inbox. Please call and notify patient. Thanks, JUSTIN UNDERWOOD MD 06/22/24 [facility]11-[facility] Telephone encounter Note* Telephone Encounter - Debra Rosales CMA - 06/04/2024 1:02 PM EST Paper is going to be dropped of to office. [facility] [id number] Miscellaneous Notes* Telephone Encounter - Chelsey Parker RN - 06/02/2024 3:19 PM EST Call received from Alex Porter ([employer] [facility]). She reports she has received numerous calls from patient asking her to move up his follow up appointment. Alex is informed that patient is scheduled for the next available appointment (06/09/2024 at 2:45 PM). Alex states she will call patient to inform him. Patient called on the other line and spoke with Radha during the time that Alex was on the line.He stated that his stimulator has moved and he needs an emergency appointment. * Telephone Encounter - BRUCE Servin - 06/02/2024 3:19 PM EST If he feels as he is experiencing a true emergency, then a visit to the emergency department would be more appropriate. Otherwise, can f/u next week as scheduled * Telephone Encounter - Ofelia Barrientos RN - 06/02/2024 3:19 PM EST Spoke with caregiver says they are having difficulty charging SCS. They feel like the SCS has moved. I offered [phone] or [phone] appt to pt caregiver, they would like an appt where Alex is able to be present. Called RUTHY johnson on with this information. Await call back * Telephone Encounter - Chelsey Parker RN - 06/02/2024 3:19 PM EST Patient was seen in the office today. documented in this encounterKettering Health DaytonGHash.IO [facility] Special[facility] [id number] Telephone encounter Note* Telephone Encounter - Chelsey Parker RN - 06/02/2024 3:19 PM EST Call received from Alex Porter ([employer] [facility]). She reports she has received numerous calls from patient asking her to move up his follow up appointment. Alex is informed that patient is scheduled for the next available appointment (06/09/2024 at 2:45 PM). Alex states she will call patient to inform him. Patient called on the other line and spoke with Radha during the time that Alex was on the line.He stated that his stimulator has moved and he needs an emergency appointment. [facility] CenterPaquin Healthcare [id number] Telephone encounter Note* Telephone Encounter - BRUCE Servin - 06/02/2024 3:19 PM EST If he feels as he is experiencing a true emergency, then a visit to the emergency department would be more appropriate. Otherwise, can f/u next week as scheduled [facility] [id number] Telephone encounter Note* Telephone Encounter - Ofelia Barrientos RN - 06/02/2024 3:19 PM EST Spoke with caregiver says they are having difficulty charging SCS. They feel like the SCS has moved. I offered [phone] or [phone] appt to pt caregiver, they would like an appt where Alex is able to be present. Called RUTHY johnson on with this information. Await call back [facility]11-12-2024 Telephone encounter Note* Telephone Encounter - Chelsey Parker RN - 06/02/2024 3:19 PM EST Patient was seen in the office today. [facility]10-21-2024 History of Present illness Narrative* Justin Underwood MD - 05/11/2024 1:45 PM EDT Images from the original note were not included. [address] [place] [id number] Patient: Laxmi Torres Date of : [...] past medical history, past social history, past surgicalhistory and problem list. PHYSICAL EXAMINATION: Vitals: 05/11/24 [...] is no right CVA tenderness, left CVA tendernessor guarding. Musculoskeletal: Cervical back: Normal range of [...] complication, without long-term current use of insulin ([facility]) - pen needle, diabetic ([employer] PEN NEEDLES) 32 gauge x 1/4 needle; Use 1 needle daily with Victoza Obesity, morbid ([facility]) Hypercholesteremia Immunization counseling - Flucelvax vaccine 6m+ YRS plus Preservative Free IM Encounter for immunization - Flucelvax vaccine 6m+ YRS plus Preservative Free IM Other orders - bismuth subsalicylate (PEPTO BISMOL) 262 mg/15 mL suspension; Take 15 mL by mouth every 6 (six) hours as needed for indigestion or heartburn. JUSTIN UNDERWOOD MD Family Medicine Physician [facility] Family Medicine / [facility] 05/11/24 This note was completed with voice recognition software. The document was reviewed for errors however some may still be present. Please do not hesitate to contact/[facility] the author to verify any questions/concerns. documented in this encounterVermont State HospitalRevTrax10-10-2024 History of Present illness Narrative* BRUCE Servin - 04/30/2024 2:15 PM EDT [facility] [address] [place] [address] Patient: Laxmi Torres Sex: male : 1975 [...] is a chronic (2016 (or before per privacy attorney)) problem. The current episode started more than 1year ago. The problem occurs rarely. The problem has been resolved (post SCS placement) since onset. The pain is present in the sacro- iliac, lumbar spine and gluteal. The pain does [...] factors include lack of exercise, obesity and se dentary lifestyle (osteoarthritis). He has tried ice, heat, analgesics, home exercises, muscle relaxant, NSAIDs and walking (PT (06/2021-Jul 2022), HEP, ice/heat/rest, Tylenol, Gabapentin, Meloxicam daily; Muscle relaxers/Percocet in past, IcyHot. DANA L1/2 on 09/25/19 w/no relief. Back surg 12/2019 w/mod relief. ., flexeril, lidocaine, toradol) for the symptoms. The treatment provided mild (Left L5, S1 NRI on 10/28/2020 w/100% relief of back & leg pain. ) relief. The effect of pain on patient's ADLS: Minimal Impairment. Past Medical History: Diagnosis Date Abnormal gait 07/02/2011 Acute pancreatitis 08/12/2020 Allergic rhinitis Anxiety Autism Back problem Bipolar I disorder ([facility]) 01/17/2017 Chipped tooth upper molar chipped Chronic pain disorder Chronic sinusitis COVID-19 2019 Depression Developmental delay disorder Deviated nasal septum 07/30/2022 Diabetes mellitus, type 2 ([facility]) Disc displacement, lumbar 08/20/2019 DNS (deviated nasal septum) alcohol syndrome GERD (gastroesophageal reflux disease) Hemorrhoids without complication 08/12/2020 Hip pain, bilateral Hyperlipidemia Hypersomnia Hypertension Hypokalemia Impulse control disorder in adult Injury of back Intellectual functioning disability 07/02/2011 Leukopenia 03/04/2023 Low back pain Lumbar post-laminectomy syndrome 08/06/2011 Mild oppositional defiant disorder with angry or irritable mood Nasal congestion Nasal turbinate hypertrophy Neck pain Bogota's syndrome Obstructive sleep apnea syndrome 07/02/2011 Seizure disorder ([facility]) states in childhood, denies seizures as an adult Sleep apnea Smoker Spinal stenosis of lumbar region 08/2023 Tachycardia 08/12/2020 Past Surgical History: Procedure Laterality Date BACK SURGERY CHOLECYSTECTOMY INJECTION BLOCK EPIDURAL STEROID LUMBAR/SACRAL: left L 5,1 nroot Left 09/23/2020 Performed by Titus Pritchett MD at [facility] INJECTION BLOCK EPIDURAL STEROID LUMBAR/SACRAL: Left L 5/1 Nroot Left 10/28/2020 Performed by Titus Pritchett MD at [facility] INJECTION BLOCK NERVE MEDIAL BRANCH: bilat L 1/2 / Bilateral 04/14/2021 Performed by Titus Pritchett MD at [facility] INJECTION BLOCK NERVE MEDIAL BRANCH: bilat L 1/2 _ 11/19 Bilateral 03/03/2021 Performed by Titus Pritchett MD at [facility] INJECTION BLOCK SACROILIAC JOINT Bilateral 12/14/2022 Performed by Titus Pritchett MD at [facility] INJECTION BLOCK SACROILIAC JOINT Bilateral 11/03/2021 Performed by Titus Pritchett MD at [facility] INJECTION BLOCK SACROILIAC JOINT Bilateral 09/29/2021 Performed by Titus Pritchett MD at [facility] LUMBAR OR SACRAL EPIDURAL BLOCK WITH STEROIDS: L12 DANA N/A 09/25/2019 Performed by Titus Pritchett MD at [facility] LUMBAR OR SACRAL EPIDURAL BLOCK WITH STEROIDS: L12 DANA N/A 08/28/2019 Performed by Titus Pritchett MD at [facility] SPINE TRANSFORAMINAL: right L 1,2 Nroot Right 09/13/2023 Performed by Titus Pritchett MD at [facility] INSERTION PERMANENT STIMULATOR SPINAL CORD N/A 04/17/2024 Performed by Titus Pritchett MD at [facility] INSERTION STIMULATOR SPINAL CORD- TRIAL N/A 02/21/2024 Performed by Titus Pritchett MD at [facility] NECK SURGERY Fusion C4-7 OPEN FUNCTIONAL RHINOPLASTY SEPTOPLASTY NOSE WITH REPAIR OF TURBINATE FRACTURE N/A 03/11/2023 Performed by Marlee Vazquez DO at [facility] RADIOFREQUENCY ABLATION SPINAL: left L 1/2 _ 11/19 Left 10/12/2022 Performed by Titus Pritchett MD at [facility] RADIOFREQUENCY ABLATION SPINAL: left L 07/23 _11/19 Left 06/23/2021 Performed by Titus Pritchett MD at [facility] RADIOFREQUENCY ABLATION SPINAL: left SI Left 12/01/2021 Performed by Titus Pritchett MD at [facility] RADIOFREQUENCY ABLATION SPINAL: right L / _ 11/19 Right 09/28/2022 Performed by Titus Pritchett MD at [facility] RADIOFREQUENCY ABLATION SPINAL: right L 07/23 _11/19 Right 06/05/2021 Performed by Titus Pritchett MD at [facility] RADIOFREQUENCY ABLATION SPINAL: right SI Right 12/15/2021 Performed by Titus Pritchett MD at [facility] REDUCTION TURBINATE Bilateral 03/11/2023 Performed by Marlee Vazquez DO at [facility] Allergies Allergen Reactions Penicillins Hives Unknown reaction [...] Interpersonal Safety: Unknown (10/10/2023) [facility] Humiliation, Afraid, Rape, and Kick questionnaire [...] during discussion, demonstrated appropriate cognitive reasoning and understandingof the medical condition by asking appropriate questions regarding the diagnosis and risks/benefits/alternatives of treatment modalities. No obvious deficits in memory, reasoning, or intellect. Lumbar: SKIN - No rashes or bruising in the area of the patient s pain. SCS incision is well healed with nosigns of infection. LYMPH NODES - demonstrate no [...] monitoring for toxicity We do not currently prescribeany controlled substance from this practice. It does appear that the patient benefited from the previous injection and the benefit has continuedthrough this visit. At this time, we will monitor the patient s symptoms from an interventional standpoint and consider another injection in the future if the patient s symptoms return or intensify severely. The patient was made aware that they should call if symptoms worsen or if their pain beginsto have a negative impact on their quality [...] BRUCE Servin 05/07/24 0940 documented in this encounterVermont State HospitalRevTrax09-17-2024 Instructions* Patient Instructions* Eunice Stoll RN - 04/07/2024 1:30 PM EDT Preoperative Education Checklist- General Surgery date: 04/17/24 Surgery time: 2:00 p.m. Arrival time: 12:00 p.m. 1. Bring a photo ID and your insurance card with you the day of surgery. You will check in at the main lobby of the [facility]- registration desk is straight ahead as soon as you walk in. Tell them you are here for surgery. 2. If you have a Living Will/Durable Power of Shipping Specialist for Health Care that is not on [...] after you have bathed. 5. NO nail bahamian/acrylic on at least one finger. If you are having a hand, wrist or foot surgery then all nail bahamian and artificial/acrylic nails must be removed from [...] least 8 hours and marijuana for 24 hoursprior to arrival for your surgery. 16. If [...] please call the Preadmission Testing office at [phone], Mon.-Fri. 7 a.m.-3 p.m. Leave a voicemail [...] after surgery- do not stop unless directed david your physician. You may also be given [...] is normal. Call your doctor if you noticeany of the following: -Increased redness or hardening [...] water and pat the area dry with aclean towel. -No re-using wash cloths or towels; [...] appointment with your doctor. documented in this encounterMarietta [facility]09-17-2024 Miscellaneous Notes* Perioperative Nursing Note - Eunice Stoll RN - 04/07/2024 1:30 PM EDT Preoperative Education Checklist- General Surgery date: 04/17/24 Surgery time: 2:00 p.m. Arrival time: 12:00 p.m. 1. Bring a photo ID and your insurance card with you the day of surgery. You will check in at the main lobby of the [facility]- registration desk is straight ahead as soon as you walk in. Tell them you are here for surgery. 2. If you have a Living Will/Durable Power of Shipping Specialist for Health Care that is not on [...] after you have bathed. 5. NO nail bahamian/acrylic on at least one finger. If you are having a hand, wrist or foot surgery then all nail bahamian and artificial/acrylic nails must be removed from [...] least 8 hours and marijuana for 24 hoursprior to arrival for your surgery. 16. If [...] please call the Preadmission Testing office at [phone], Mon.-Fri. 7 a.m.-3 p.m. Leave a voicemail [...] after surgery- do not stop unless directed david your physician. You may also be given [...] is normal. Call your doctor if you noticeany of the following: -Increased redness or hardening [...] water and pat the area dry with aclean towel. -No re-using wash cloths or towels; get a fresh one to clean your incision. -Do not soak in the bathtub, go swimming or use a hot tub (Steven), or perform activities where your incision is [...] to the follow-up appointment with your doctor. * Perioperative Nursing Note - Eunice Stoll RN - 04/07/2024 1:30 PM EDT Surgical instructions reviewed with patient and his caregiver. Both verbalized understanding. Patient's EKG was initially reading [facility] EKG taken to Dr Winslow in the cardiology office and compared the finding to an EKG from last year. He said no acute changes noted and that the EKG was okay. documented in this encounterMarietta [facility] Hospital09-17-2024 Nurse Note* Perioperative Nursing Note - Eunice Stoll RN - 04/07/2024 1:30 PM EDT Preoperative Education Checklist- General Surgery date: 04/17/24 Surgery time: 2:00 p.m. Arrival time: 12:00 p.m. 1. Bring a photo ID and your insurance card with you the day of surgery. You will check in at the main lobby of the [facility]- registration desk is straight ahead as soon as you walk in. Tell them you are here for surgery. 2. If you have a Living Will/Durable Power of Shipping Specialist for Health Care that is not on [...] after you have bathed. 5. NO nail bahamian/acrylic on at least one finger. If you are having a hand, wrist or foot surgery then all nail bahamian and artificial/acrylic nails must be removed from [...] least 8 hours and marijuana for 24 hoursprior to arrival for your surgery. 16. If [...] please call the Preadmission Testing office at [phone], Mon.-Fri. 7 a.m.-3 p.m. Leave a voicemail [...] after surgery- do not stop unless directed david your physician. You may also be given [...] is normal. Call your doctor if you noticeany of the following: -Increased redness or hardening [...] water and pat the area dry with aclean towel. -No re-using wash cloths or towels; [...] to the follow-up appointment with your doctor. [facility]09-17-2024 Nurse Note* Perioperative Nursing Note - Eunice Stoll RN - 04/07/2024 1:30 PM EDT Surgical instructions reviewed with patient and his caregiver. Both verbalized understanding. Patient's EKG was initially reading acute [facility]. EKG taken to Dr Winslow in the cardiology office and compared the finding to an EKG from last year. He said no acute changes noted and that the EKG was okay. [facility]09-12-2024 Miscellaneous Notes* Telephone Encounter - Susan Calabrese CMA - 04/02/2024 11:56 AM EDT Marco the caregiver from [employer] called into the office and stated that Rogers has told him lateTuesday night that when he is urinating its burning, there was no other symptoms to report. * Telephone Encounter - Justin Underwood MD - 04/02/2024 11:56 AM EDT Rx/order sent to pharmacy. Macrobid 100mg BID for 5 days. Please call and notify patient. Thanks, JUSTIN UNDERWOOD MD 04/02/24 * Telephone Encounter - Susan Calabrese CMA - 04/02/2024 11:56 AM EDT Called to let the caregiver know that RX was sent to pharmacy, he verbalized understanding. documented in this encounterMarietta [facility] Hospital09-12-2024 Telephone encounter Note* Telephone Encounter - Susan Calabrese CMA - 04/02/2024 11:56 AM EDT Marco the caregiver from [employer] called into the office and stated that Rogers has told him lateTuesday night that when he is urinating its burning, there was no other symptoms to report. [facility]09-12-[facility] Telephone encounter Note* Telephone Encounter - Justin Underwood MD - 04/02/2024 11:56 AM EDT Rx/order sent to pharmacy. Macrobid 100mg BID for 5 days. Please call and notify patient. Thanks, JUSTIN UNDERWOOD MD 04/02/24 [facility]09-12-[facility] Telephone encounter Note* Telephone Encounter - Susan Calabrese CMA - 04/02/2024 11:56 AM EDT Called to let the caregiver know that RX was sent to pharmacy, he verbalized understanding. [facility]09-06-[facility] Miscellaneous Notes* Telephone Encounter - Meghana Carrera CMA - 03/27/2024 8:17 AM EDT ED Outreach This documentation is being used for Transition of Care purposes: Yes/No: No ED Outreach Date: March 27, 2024 ED Outreach Method: COMMUNICATION METHOD: Telephone ED Outreach Attempt: second ED Outreach Outcome: Contacted Patient Name of ED Facility: [facility] Date of ED Discharge: 03/26/2024 Discharge Diagnosis: Nausea and vomiting, Fatty Liver ED Chief Complaint: vomiting Current Symptom Status: improving- spoke with patient's multi care technician, hipaa verified. He states that patient is doing well. No lingering nausea or vomiting. Denies other concerns. Medication Changes Reviewed: yes Medication Questions/Concerns: denies concerns at this time Follow-up PCP Scheduled: Declines Follow-up Specialist Scheduled:n/a Follow up Testing Scheduled: n/a Patient Contacted Office Prior to ED Visit: No. Patient made aware of on-call provider and same dayappointment availability. Additional Comments: Patient will contact the office with additional concerns. documented in this encounterMarietta [facility] Hospital09-06-2024 Telephone encounter Note* Telephone Encounter - Meghana Carrera CMA - 03/27/2024 8:17 AM EDT ED Outreach This documentation is being used for Transition of Care purposes: Yes/No: No ED Outreach Date: March 27, 2024 ED Outreach Method: COMMUNICATION METHOD: Telephone ED Outreach Attempt: second ED Outreach Outcome: Contacted Patient Name of ED Facility: [facility] Date of ED Discharge: 03/26/2024 Discharge Diagnosis: Nausea and vomiting, Fatty Liver ED Chief Complaint: vomiting Current Symptom Status: improving- spoke with patient's multi care technician, hipaa verified. He states that patient is doing well. No lingering nausea or vomiting. Denies other concerns. Medication Changes Reviewed: yes Medication Questions/Concerns: denies concerns at this time Follow-up PCP Scheduled: Declines Follow-up Specialist Scheduled:n/a Follow up Testing Scheduled: n/a Patient Contacted Office Prior to ED Visit: No. Patient made aware of on-call provider and same dayappointment availability. Additional Comments: Patient will contact the office with additional concerns. [facility]08-29-20[facility] Miscellaneous Notes* Telephone Encounter - Ofelia Barrientos RN - 03/19/2024 11:28 AM EDT On 03/19/2024, Emailed Shea (handcrew foreman) for Permanent SCS implant availability on 04/17/2024 2pm. Received confirmation today 03/24/2024 from industrial machinery mechanic that pt is scheduled for that day Emailed insurance, industrial machinery mechanic ad [employer] staff re: scheduled procedure * Telephone Encounter - Ofelia Barrientos RN - 03/19/2024 11:28 AM EDT Please proceed with insurance johanna Khoury/alex from [employer] have been notified * Telephone Encounter - Ofelia Barrientos RN - 03/19/2024 11:28 AM EDT Spoke with Dr Pritchett re: IV and oral antibiotic for permanent SCS implant. IV antibiotic for Cipro 400 mg prior to procedure. Oral levaquin 500 mg BID x5 days, #10; ok for once daily if pharmacy recommends. documented in this encounterMarietta [facility] Hospital08-29-2024 Telephone encounter Note* Telephone Encounter - Ofelia Barrientos RN - 03/19/2024 11:28 AM EDT On 03/19/2024, Emailed Shea (handcrew foreman) for Permanent SCS implant availability on 04/17/2024 2pm. Received confirmation today 03/24/2024 from industrial machinery mechanic that pt is scheduled for that day Emailed insurance, industrial machinery mechanic ad [employer] staff re: scheduled procedure [facility]08-29-20[facility] Telephone encounter Note* Telephone Encounter - Ofelia Barrientos RN - 03/19/2024 11:28 AM EDT Please proceed with insurance auth Iraida/alex from [employer] have been notified [facility] [employer] [id number] Telephone encounter Note* Telephone Encounter - Ofelia Barrientos RN - 03/19/2024 11:28 AM EDT Spoke with Dr Pritchett re: IV and oral antibiotic for permanent SCS implant. IV antibiotic for Cipro 400 mg prior to procedure. Oral levaquin 500 mg BID x5 days, #10; ok for once daily if pharmacy recommends. [facility]08-[facility] History of Present illness Narrative* BRUCE Servin - 03/12/2024 1:30 PM EDT [facility] [address] [place] [address] Patient: Laxmi Torres Sex: male : 1975 [...] is a chronic (2016 (or before per privacy attorney)) problem. The current episode started more than 1year ago. The problem occurs constantly. The problem has been gradually worsening since onset. The pain is present in the sacro-iliac, lumbar spine and gluteal (right). The quality of the pain is described as stabbing, shooting, aching, burning and cramping. The pain radiates to the right thigh, right foot and right knee (posteriorly and anteriorly). Pain scale: 8/10 currently and can increase to10/10 depending on activity. The pain is moderate. Worse during: worse with activity. The symptoms are aggravated by standing (sitting to standing transitions, ambulation, walking). Stiffness is present In the morning, all day and at night (intermittently). Associated symptoms include leg pain (RLEposterior and anterior), numbness (right foot) and tingling [...] Anxiety Autism Back problem Bipolar I disorder ([facility]) 01/17/2017 Chipped tooth upper molar chipped Chronic pain disorder Chronic sinusitis COVID-19 2019 Depression Developmental delay disorder Deviated nasal septum 07/30/2022 Diabetes mellitus, type 2 ([facility]) Disc displacement, lumbar 08/20/2019 DNS (deviated nasal septum) alcohol syndrome GERD (gastroesophageal reflux disease) Hemorrhoids without complication 08/12/2020 Hip pain, bilateral Hyperlipidemia Hypersomnia Hypertension Hypokalemia Impulse control disorder in adult Injury of back Intellectual functioning disability 07/02/2011 Leukopenia 03/04/2023 Low back pain Lumbar post-laminectomy syndrome 08/06/2011 Mild oppositional defiant disorder with angry or irritable mood Nasal congestion Nasal turbinate hypertrophy Neck pain Bogota's syndrome Obstructive sleep apnea syndrome 07/02/2011 Seizure disorder ([facility]) states in childhood, denies seizures as an adult Sleep apnea Smoker Spinal stenosis of lumbar region 08/2023 Tachycardia 08/12/2020 Past Surgical History: Procedure Laterality Date BACK SURGERY CHOLECYSTECTOMY INJECTION BLOCK EPIDURAL STEROID LUMBAR/SACRAL: left L 5,1 nroot Left 09/23/2020 Performed by Titus Pritchett MD at [facility] INJECTION BLOCK EPIDURAL STEROID LUMBAR/SACRAL: Left L 5/1 Nroot Left 10/28/2020 Performed by Titus Pritchett MD at [facility] INJECTION BLOCK NERVE MEDIAL BRANCH: bilat L 1/2 5/ Bilateral 04/14/2021 Performed by Titus Pritchett MD at [facility] INJECTION BLOCK NERVE MEDIAL BRANCH: bilat L /2 _ 11/19 Bilateral 03/03/2021 Performed by Titus Pritchett MD at [facility] INJECTION BLOCK SACROILIAC JOINT Bilateral 12/14/2022 Performed by Titus Pritchett MD at [facility] INJECTION BLOCK SACROILIAC JOINT Bilateral 11/03/2021 Performed by Titus Pritchett MD at [facility] INJECTION BLOCK SACROILIAC JOINT Bilateral 09/29/2021 Performed by Titus Pritchett MD at [facility] LUMBAR OR SACRAL EPIDURAL BLOCK WITH STEROIDS: L12 DANA N/A 09/25/2019 Performed by Titus Pritchett MD at [facility] LUMBAR OR SACRAL EPIDURAL BLOCK WITH STEROIDS: L12 DANA N/A 08/28/2019 Performed by Titus Pritchett MD at [facility] SPINE TRANSFORAMINAL: right L 1,2 Nroot Right 09/13/2023 Performed by Titus Pritchett MD at [facility] INSERTION STIMULATOR SPINAL CORD- TRIAL N/A 02/21/2024 Performed by Titus Pritchett MD at [facility] NECK SURGERY Fusion C4-7 OPEN FUNCTIONAL RHINOPLASTY SEPTOPLASTY NOSE WITH REPAIR OF TURBINATE FRACTURE N/A 03/11/2023 Performed by Marlee Vazquez DO at [facility] RADIOFREQUENCY ABLATION SPINAL: left L /2 _ 11/19 Left 10/12/2022 Performed by Titus Pritchett MD at [facility] RADIOFREQUENCY ABLATION SPINAL: left L /2 _11/19 Left 06/23/2021 Performed by Titus Pritchett MD at [facility] RADIOFREQUENCY ABLATION SPINAL: left SI Left 12/01/2021 Performed by Titus Pritchett MD at [facility] RADIOFREQUENCY ABLATION SPINAL: right L /2 _ 11/19 Right 09/28/2022 Performed by Titus Pritchett MD at [facility] RADIOFREQUENCY ABLATION SPINAL: right L 1/2 _5/ Right 06/05/2021 Performed by Titus Pritchett MD at [facility] RADIOFREQUENCY ABLATION SPINAL: right SI Right 12/15/2021 Performed by Titus Pritchett MD at [facility] REDUCTION TURBINATE Bilateral 03/11/2023 Performed by Marlee Vazquez DO at [facility] Allergies Allergen Reactions Penicillins Hives [...] Interpersonal Safety: Unknown (10/10/2023) Received from [facility], [facility] Humiliation, Afraid, Rape, and Kick questionnaire [...] during discussion, demonstrated appropriate cognitive reasoning and understandingof the medical condition by asking appropriate questions [...] spine and paraspinal musculature. Pain is elicited withflexion, extension, and lateral rotation of the lumbar [...] procedure was described in detail to the patientas well as the potential benefits of pain [...] as a result. Additional consideration will need callie given to timing the procedure early in [...] BRUCE Servin 03/19/24 1220 documented in this encounterVermont State HospitalRevTrax08-22-2024 Instructions* Patient Instructions* Ofelia Barrientos RN - 03/12/2024 1:30 PM [...] pain. However, you should contact your SCS paper sales representative to discuss that the stimulator is [...] stimulator unit, call your spinal cord stimulator paper sales representative (you will be provided with contact information). Be sure to use this trial period to the fullest by using as many programs and settings as possible. documented in this encounterKettering Health DaytonFusionone Electronic Healthcare [id number] History of Present illness Narrative* Justin Underwood MD - 03/09/2024 3:00 PM EDT Images from the original note were not included. [address] [place] [id number] Subjective: Laxmi Torres is a 48 [...] Do you have a durable power of assistant city attorney?: (!) No Cognitive Screening Do you [...] complication, without long-term current use of insulin ([facility]) 09/25/2023 Leukopenia 03/04/2023 Closed fracture of nasal septum 02/04/2023 Nasal congestion 02/04/2023 Hypertrophy of both inferior nasal turbinates 02/04/2023 Deviated nasal septum 07/30/2022 Chronic tonsillitis 07/30/2022 Other chronic sinusitis 07/30/2022 Disorder of sacrum 09/07/2021 Lumbosacral spondylosis without myelopathy 02/23/2021 Schizoaffective disorder, bipolar type ([facility]) 2020 Essential hypertension 08/12/2020 Hyperlipidemia 08/12/2020 Hemorrhoids without complication 08/12/2020 Nonspecific abnormal finding 08/12/2020 Hypersomnia 08/12/2020 Prolapsed cervical intervertebral disc 08/12/2020 Tachycardia 08/12/2020 Disc displacement, lumbar 08/20/2019 Sensorineural hearing loss (SNHL) of both ears 07/10/2019 Bipolar I disorder ([facility]) 01/17/2017 Allergic rhinitis 05/10/2014 Spinal stenosis of cervical region 11/30/2013 Neoplasm of uncertain behavior of skin 09/10/2012 Displacement of lumbar intervertebral disc without myelopathy 08/06/2011 Lumbar post-laminectomy syndrome 08/06/2011 Abnormal gait 07/02/2011 Abnormal glucose level 07/02/2011 Anxiety state 07/02/2011 Obstructive sleep apnea syndrome 07/02/2011 Seizure disorder ([facility]) 07/02/2011 Intellectual functioning disability 07/02/2011 Osteoarthritis 07/02/2011 Parkinson's disease ([facility]) 07/02/2011 Spinal stenosis of lumbar region 07/02/2011 Past Medical History: Diagnosis Date Abnormal gait 07/02/2011 Acute pancreatitis 08/12/2020 Allergic rhinitis Anxiety Autism Back problem Bipolar I disorder ([facility]) 01/17/2017 Chipped tooth upper molar chipped Chronic pain disorder Chronic sinusitis COVID-19 2019 Depression Developmental delay disorder Deviated nasal septum 07/30/2022 Diabetes mellitus, type 2 ([facility]) Disc displacement, lumbar 08/20/2019 DNS (deviated nasal septum) alcohol syndrome GERD (gastroesophageal reflux disease) Hemorrhoids without complication 08/12/2020 Hip pain, bilateral Hyperlipidemia Hypersomnia Hypertension Hypokalemia Impulse control disorder in adult Injury of back Intellectual functioning disability 07/02/2011 Leukopenia 03/04/2023 Low back pain Lumbar post-laminectomy syndrome 08/06/2011 Mild oppositional defiant disorder with angry or irritable mood Nasal congestion Nasal turbinate hypertrophy Neck pain Bogota's syndrome Obstructive sleep apnea syndrome 07/02/2011 Seizure disorder ([facility]) states in childhood, denies seizures as an adult Sleep apnea Smoker Spinal stenosis of lumbar region 08/2023 Tachycardia 08/12/2020 Past Surgical History: Procedure Laterality Date BACK SURGERY CHOLECYSTECTOMY INJECTION BLOCK EPIDURAL STEROID LUMBAR/SACRAL: left L 5,1 nroot Left 09/23/2020 Performed by Titus Pritchett MD at [facility] INJECTION BLOCK EPIDURAL STEROID LUMBAR/SACRAL: Left L 5/ Nroot Left 10/28/2020 Performed by Titus Pritchett MD at [facility] INJECTION BLOCK NERVE MEDIAL BRANCH: bilat L 1/2 5/ Bilateral 04/14/2021 Performed by Titus Pritchett MD at [facility] INJECTION BLOCK NERVE MEDIAL BRANCH: bilat L 1/2 _ / Bilateral 03/03/2021 Performed by Titus Pritchett MD at [facility] INJECTION BLOCK SACROILIAC JOINT Bilateral 12/14/2022 Performed by Titus Pritchett MD at [facility] INJECTION BLOCK SACROILIAC JOINT Bilateral 11/03/2021 Performed by Titus Pritchett MD at [facility] INJECTION BLOCK SACROILIAC JOINT Bilateral 09/29/2021 Performed by Titus Pritchett MD at [facility] INJECTION LUMBAR OR SACRAL EPIDURAL BLOCK WITH STEROIDS: L12 DANA N/A 09/25/2019 Performed by Titus Pritchett MD at [facility] LUMBAR OR SACRAL EPIDURAL BLOCK WITH STEROIDS: L12 DANA N/A 08/28/2019 Performed by Titus Pritchett MD at [facility] INJECTION SPINE TRANSFORAMINAL: right L 1,2 Nroot Right 09/13/2023 Performed by Titus Pritchett MD at [facility] INSERTION STIMULATOR SPINAL CORD- TRIAL N/A 02/21/2024 Performed by Titus Pritchett MD at [facility] NECK SURGERY Fusion C4-7 OPEN FUNCTIONAL RHINOPLASTY SEPTOPLASTY NOSE WITH REPAIR OF TURBINATE FRACTURE N/A 03/11/2023 Performed by Marlee Vazquez DO at [facility] RADIOFREQUENCY ABLATION SPINAL: left L 1/2 _ 11/19 Left 10/12/2022 Performed by Titus Pritchett MD at [facility] RADIOFREQUENCY ABLATION SPINAL: left L 1/2 _/ Left 06/23/2021 Performed by Titus Pritchett MD at [facility] RADIOFREQUENCY ABLATION SPINAL: left SI Left 12/01/2021 Performed by Titus Pritchett MD at [facility] RADIOFREQUENCY ABLATION SPINAL: right L 1/2 _ 5/ Right 09/28/2022 Performed by Titus Pritchett MD at [facility] RADIOFREQUENCY ABLATION SPINAL: right L 1/2 _5/ Right 06/05/2021 Performed by Titus Pritchett MD at [facility] RADIOFREQUENCY ABLATION SPINAL: right SI Right 12/15/2021 Performed by Titus Pritchett MD at [facility] REDUCTION TURBINATE Bilateral 03/11/2023 Performed by Marlee Vazquez DO at [facility] Family History Problem Relation Age of Onset [...] tablet Chew 1 tablet (200 mg total) andswallow in the morning. 90 tablet 3 cetirizine [...] nasal spray Administer 2 sprays into each nostrilin the morning. Indications: allergic conjunctivitis, inflammation of [...] by mouth in the morning and 1 tablet(500 mg total) in the evening. Take with [...] is no right CVA tenderness, left CVA tendernessor guarding. Musculoskeletal: Cervical back: Normal range of [...] and Education Materials:Staying Healthy: Medicare's Preventive Services (CMS) Diseases: Heart Health (EMELINA), Know the Facts about Heart Disease (CDC), and Tobacco Treatment Services ([facility]) Immunizations: Understanding how vaccines work (CDC) Nutrition: Healthy eating after 50 (EMELINA) and Common questions (EMELINA) Activity/Exercise/Safety/Misc: Road to Independent Driving ([facility]) The above recommendations were discussed with patient Laxmi was seen today for annual exam. Diagnoses and all orders for this visit: MARK (obstructive sleep apnea) - Ambulatory referral to [facility] Sleep Medicine; Future Primary cough headache - diphenhydrAMINE (BENADRYL) 25 mg capsule; Take 1 capsule (25 mg total) by mouth every 6 (six) hours as needed for sleep (headache). Episodic tension-type headache, not intractable Tobacco use There are no Patient Instructions on file for this visit. JUSTIN UNDERWOOD MD 03/09/24 documented in this encounterMarietta [facility] Hospital07-05-2024 History of Present illness Narrative* Bonny Santo - 01/24/2024 3:02 PM EDT Marco, patient's caregiver, has requested for patient's Albuterol inhaler to be refilled. Please sign if appropriate. Thanks, Bonny Santo RN documented in this encounterMarietta Memorial Hospital07-05-2024 History of Present illness Narrative* Vonnie Hanye - 01/24/2024 1:24 PM EDT When was the last Refill? 08/15/2023 Is this medication Historical? Paulina of preferred Pharmacy? [facility] in [place], [place] When was the last OV with provider? 12/25/2023 When is the next scheduled visit? 03/09/2024 documented in this encounterMarietta [facility] Hospital06-13-2024 History of Present illness Narrative* BRUCE Servin - 01/02/2024 11:15 AM EDT [facility] [address] [place] [address] Patient: Laxmi Torres Sex: male : 1975 [...] is a chronic (2016 (or before per privacy attorney)) problem. The current episode started more than 1year ago. The problem occurs constantly. The problem is unchanged. The pain is present in the sacro-iliac, lumbar spine and gluteal (right). The quality of the pain is described as stabbing, shooting, aching, burning and cramping. The pain radiates to the right thigh, right foot and right knee. Thepain is at a severity of 8/10 (pain [...] analgesics, home exercises, muscle relaxant, NSAIDs and wal lesley (PT (06/2021-Jul 2022), HEP, ice/heat/rest, Tylenol, Gabapentin, [...] Anxiety Autism Back problem Bipolar I disorder ([facility]) 01/17/2017 Chipped tooth upper molar chipped Chronic pain disorder Chronic sinusitis COVID-2019 Depression Developmental delay disorder Deviated nasal septum 07/30/2022 Diabetes mellitus, type 2 ([facility]) Disc displacement, lumbar 08/20/2019 DNS (deviated nasal [...] Obstructive sleep apnea syndrome 07/02/2011 Seizure disorder ([facility]) states in childhood, denies seizures as an adult Sleep apnea Smoker Spinal stenosis of lumbar region 08/2023 Tachycardia 08/12/2020 Past Surgical History: Procedure Laterality Date BACK SURGERY CHOLECYSTECTOMY INJECTION BLOCK EPIDURAL STEROID LUMBAR/SACRAL: left L 5,1 nroot Left 09/23/2020 Performed by Titus Pritchett MD at [facility] INJECTION BLOCK EPIDURAL STEROID LUMBAR/SACRAL: Left L 5/1 Nroot Left 10/28/2020 Performed by Titus Pritchett MD at [facility] INJECTION BLOCK NERVE MEDIAL BRANCH: bilat L 1/2 5/ Bilateral 04/14/2021 Performed by Titus Pritchett MD at [facility] INJECTION BLOCK NERVE MEDIAL BRANCH: bilat L 1/2 _ 5/1 Bilateral 03/03/2021 Performed by Titus Pritchett MD at [facility] INJECTION BLOCK SACROILIAC JOINT Bilateral 12/14/2022 Performed by Titus Pritchett MD at [facility] INJECTION BLOCK SACROILIAC JOINT Bilateral 11/03/2021 Performed by Titus Pritchett MD at [facility] INJECTION BLOCK SACROILIAC JOINT Bilateral 09/29/2021 Performed by Titus Pritchett MD at [facility] INJECTION LUMBAR OR SACRAL EPIDURAL BLOCK WITH STEROIDS: L12 DANA N/A 09/25/2019 Performed by Titus Pritchett MD at [facility] INJECTION LUMBAR OR SACRAL EPIDURAL BLOCK WITH STEROIDS: L12 DANA N/A 08/28/2019 Performed by Titus Pritchett MD at [facility] INJECTION SPINE TRANSFORAMINAL: right L 1,2 Nroot Right 09/13/2023 Performed by Titus Pritchett MD at [facility] NECK SURGERY Fusion C4-7 OPEN FUNCTIONAL RHINOPLASTY SEPTOPLASTY NOSE WITH REPAIR OF TURBINATE FRACTURE N/A 03/11/2023 Performed by Marlee Vazquez DO at [facility] RADIOFREQUENCY ABLATION SPINAL: left L /2 _ 11/19 Left 10/12/2022 Performed by Titus Pritchett MD at [facility] RADIOFREQUENCY ABLATION SPINAL: left L /2 _11/19 Left 06/23/2021 Performed by Titus Pritchett MD at [facility] RADIOFREQUENCY ABLATION SPINAL: left SI Left 12/01/2021 Performed by Titus Pritchett MD at [facility] RADIOFREQUENCY ABLATION SPINAL: right L /2 _ 11/19 Right 09/28/2022 Performed by Titus Pritchett MD at [facility] RADIOFREQUENCY ABLATION SPINAL: right L /2 _11/19 Right 06/05/2021 Performed by Titus Pritchett MD at [facility] RADIOFREQUENCY ABLATION SPINAL: right SI Right 12/15/2021 Performed by Titus Pritchett MD at [facility] REDUCTION TURBINATE Bilateral 03/11/2023 Performed by Marlee Vazquez DO at [facility] Allergies Allergen Reactions Penicillins Hives Unknown reaction [...] Interpersonal Safety: Unknown (10/10/2023) [facility] Humiliation, Afraid, Rape, and Kick questionnaire [...] during discussion, demonstrated appropriate cognitive reasoning and understandingof the medical condition by asking appropriate questions [...] spine and paraspinal musculature. Pain is elicited withflexion, extension, and lateral rotation of the lumbar [...] procedure was described in detail to the patientas well as the potential benefits of pain [...] They will be taught by the stimulator paper sales representative how to use a handheld controller [...] monitoring for toxicity We do not currently prescribeany controlled substance from this practice. Treatment plans [...] as a result. Additional consideration will need callie given to timing the procedure early in [...] Durán CNA 01/02/24 1230 BRUCE Servin 01/02/24 1249 documented in this encounterKettering Health DaytonFusionone Electronic Healthcare [id number] Instructions* Patient Instructions* Abril Durán CNA - 01/02/2024 11:15 AM [...] (wire) is inserted close to an area nearthe nerves of your spinal cord. The electrode is placed as a test/trial to determine whether spinalcord stimulation will help relieve your pain. The [...] pain. However, you should contact your SCS paper sales representative to discuss that the stimulator is [...] stimulator unit, call your spinal cord stimulator paper sales representative (you will be provided with contact information). Be sure to use this trial period to the fullest by using as many programs and settings as possible. documented in this encounterMarietta [facility] Hospital06-05-2024 History of Present illness Narrative* Justin Underwood MD - 12/25/2023 8:00 AM EDT Images from the original note were not included. [address] [place] [id number] Patient: Laxmi Torres Date of : [...] past medical history, past social history, past surgicalhistory and problem list. PHYSICAL EXAMINATION: Physical Exam [...] Visit via Real-time Synchronous Audiovisual Provider Location: [facility] [address] [place] [phone] Patient Location: Patient's home Video Visit Consent Statement: I discussed risks, benefits, and alternatives of a real-time synchronous audiovisual consultation with the patient (and any accompanying persons) including the risks that the patient's personal health details and medical records will be discussed over real-time, synchronous, interactive video/audio/telecommunication technology, the visit will not be recorded withoutthe express consent of both the provider and the patient, and that there are some limitations compared to [id number] evaluations. The patient consented to the presence of additional virtual and/or in-person participants. We elected to proceed. JUSTIN UNDERWOOD MD Family Medicine Physician [facility] / [facility] 12/25/23 This note was completed with voice recognition software. The document was reviewed for errors however some may still be present. Please do not hesitate to contact/Epic msg the author to verify any questions/concerns. documented in this encounterMarietta Memorial Hospital06-05-2024 Instructions* Patient Instructions* Justin Underwood MD - 12/25/2023 8:00 AM [...] PRN for Back Pain documented in this encounterMarietta Memorial Hospital05-08-2024 Miscellaneous Notes* Telephone Encounter - Debra Flynn - 11/27/2023 2:38 PM EDT Pt.s home health care physician Marco called in requesting we send a referral for spinal cord stimulator to [facility] next door. Pt was originally going to his personal Therapist however Dr. Cherry is booked out 7 months. Pt would like to get in and seen as soon as possible. When calling to schedule they should call Marco [phone] Thank you * Telephone Encounter - Meghana Padilla CNA - 11/27/2023 2:38 PM EDT A referral was faxed to [facility] and confirmation was received documented in this encounterProMedica Health [id number] Telephone encounter Note* Telephone Encounter - Debra Flynn - 11/27/2023 2:38 PM EDT Pt.s home health care physician Marco called in requesting we send a referral for spinal cord stimulator to [facility] next door. Pt was originally going to his personal Therapist however Dr. Cherry is booked out 7 months. Pt would like to get in and seen as soon as possible. When calling to schedule they should call Marco [phone] Thank you [facility]05-08-[facility]24 Telephone encounter Note* Telephone Encounter - Meghana Padilla CNA - 11/27/2023 2:38 PM EDT A referral was faxed to [facility] and confirmation was received [facility]04-09-[facility] History of Present illness Narrative* BRUCE Servin - 10/29/2023 2:30 PM EDT [facility] [address] [place] [address] Patient: Laxmi Torres Sex: male : 1975 Age: 47 y.o. PCP: JUSTIN UNDERWOOD MD 10/29/2023 Laxmi Torres is here for a(n) follow up after seeing Neurosurgery at [facility]. Patient reports he was told he is not a surgical candidate at this time but did recommend SCS trila and placement. Patient reports he has viewed the educational DVD and would like toproceed. Chief Complaint Patient presents with Back Pain [...] is a chronic (2016 (or before per privacy attorney)) problem. The current episode started more than 1year ago. The problem occurs constantly. The problem [...] past, [employer]. DANA L1/2 on 09/25/19 w/no relief.Back surg 12/2019 w/ mod relief. ., flexeril, lidocaine, toradol) for the symptoms. The treatment provided mild (Left L5, S1 NRI on 10/28/2020 w/100% relief of back & leg pain. ) relief. The effect of pain on patient's ADLS: Moderate Impairment. Past Medical History: Diagnosis Date Abnormal gait 07/02/2011 Acute pancreatitis 08/12/2020 Allergic rhinitis Anxiety Autism Back problem Bipolar I disorder ([facility]) 01/17/2017 Chipped tooth upper molar chipped Chronic pain disorder Chronic sinusitis COVID-19 2019 Depression Developmental delay disorder Deviated nasal septum 07/30/2022 Diabetes mellitus, type 2 ([facility]) Disc displacement, lumbar 08/20/2019 DNS (deviated nasal septum) alcohol syndrome GERD (gastroesophageal reflux disease) Hemorrhoids without complication 08/12/2020 Hip pain, bilateral Hyperlipidemia Hypersomnia Hypertension Hypokalemia Impulse control disorder in adult Injury of back Intellectual functioning disability 07/02/2011 Leukopenia 03/04/2023 Low back pain Lumbar post-laminectomy syndrome 08/06/2011 Mild oppositional defiant disorder with angry or irritable mood Nasal congestion Nasal turbinate hypertrophy Neck pain Bogota's syndrome Obstructive sleep apnea syndrome 07/02/2011 Seizure disorder ([facility]) states in childhood, denies seizures as an adult Sleep apnea Smoker Spinal stenosis of lumbar region 08/2023 Tachycardia 08/12/2020 Past Surgical History: Procedure Laterality Date BACK SURGERY CHOLECYSTECTOMY INJECTION BLOCK EPIDURAL STEROID LUMBAR/SACRAL: left L 5,1 nroot Left 09/23/2020 Performed by Titus Pritchett MD at [facility] INJECTION BLOCK EPIDURAL STEROID LUMBAR/SACRAL: Left L 5/1 Nroot Left 10/28/2020 Performed by Titus Pritchett MD at [facility] INJECTION BLOCK NERVE MEDIAL BRANCH: bilat L 1/2 / Bilateral 04/14/2021 Performed by Titus Pritchett MD at [facility] INJECTION BLOCK NERVE MEDIAL BRANCH: bilat L 1/2 _ / Bilateral 03/03/2021 Performed by Titus Pritchett MD at [facility] INJECTION BLOCK SACROILIAC JOINT Bilateral 12/14/2022 Performed by Titus Pritchett MD at [facility] INJECTION BLOCK SACROILIAC JOINT Bilateral 11/03/2021 Performed by Titus Pritchett MD at [facility] INJECTION BLOCK SACROILIAC JOINT Bilateral 09/29/2021 Performed by Titus Pritchett MD at [facility] INJECTION LUMBAR OR SACRAL EPIDURAL BLOCK WITH STEROIDS: L12 DANA N/A 09/25/2019 Performed by Titus Pritchett MD at [facility] LUMBAR OR SACRAL EPIDURAL BLOCK WITH STEROIDS: L12 DANA N/A 08/28/2019 Performed by Titus Pritchett MD at [facility] SPINE TRANSFORAMINAL: right L 1,2 Nroot Right 09/13/2023 Performed by Titus Pritchett MD at [facility] NECK SURGERY Fusion C4-7 OPEN FUNCTIONAL RHINOPLASTY SEPTOPLASTY NOSE WITH REPAIR OF TURBINATE FRACTURE N/A 03/11/2023 Performed by Marlee Vazquez DO at [facility] RADIOFREQUENCY ABLATION SPINAL: left L /2 _ 11/19 Left 10/12/2022 Performed by Titus Pritchett MD at [facility] RADIOFREQUENCY ABLATION SPINAL: left L /2 _11/19 Left 06/23/2021 Performed by Titus Pritchett MD at [facility] RADIOFREQUENCY ABLATION SPINAL: left SI Left 12/01/2021 Performed by Titus Pritchett MD at [facility] RADIOFREQUENCY ABLATION SPINAL: right L /2 _ 11/19 Right 09/28/2022 Performed by Titus Pritchett MD at [facility] RADIOFREQUENCY ABLATION SPINAL: right L /2 _11/19 Right 06/05/2021 Performed by Titus Pritchett MD at [facility] RADIOFREQUENCY ABLATION SPINAL: right SI Right 12/15/2021 Performed by Titus Pritchett MD at [facility] REDUCTION TURBINATE Bilateral 03/11/2023 Performed by Marlee Vazquez DO at [facility] Allergies Allergen Reactions Penicillins Hives Unknown reaction [...] during discussion, demonstrated appropriate cognitive reasoning and understandingof the medical condition by asking appropriate questions [...] spine and paraspinal musculature. Pain is elicited withflexion, extension, and lateral rotation of the lumbar [...] this time. We have discussed SCS implantation. Priorto this he needs to undergo Psych evaluation to proceed with SCS trial. We are referring him to youfor evaluation. Hopefully this will provide more definitive [...] monitoring for toxicity We do not currently prescribeany controlled substance from this practice. Treatment plans [...] BRUCE Servin 10/31/23 1430 documented in this encounterMarietta [facility] Hospital04-09-2024 Instructions* Patient Instructions* Abril Durán CNA - 10/29/2023 2:30 PM EDT documented in this encounterMarietta Memorial Hospital04-04-2024 Miscellaneous Notes* Telephone Encounter - Susan Calabrese CMA - 10/24/2023 2:30 PM EDT Patient called into the office and was asking about his results for his labs * Telephone Encounter - Justin Underwood MD - 10/24/2023 2:30 PM EDT His labs are similar/stable to last time he had them done. Nothing urgent. But If has questions we can setup telemed in the next 1-2 months to review. We do need to dsicuss lifestyle modification and perhaps some medications/supplments to help his sugars and lipids Please call and notify patient. Thanks, JUSTIN UNDERWOOD MD 10/25/23 * Telephone Encounter - Susan Calabrese CMA - 10/24/2023 2:30 PM EDT Called patient and got him scheduled for appointment in December to go over results. documented in this encounterMarietta Memorial Hospital04-04-2024 Telephone encounter Note* Telephone Encounter - Susan Calabrese CMA - 10/24/2023 2:30 PM EDT Patient called into the office and was asking about his results for his labs [facility]04-04-[facility] Telephone encounter Note* Telephone Encounter - Justin Underwood MD - 10/24/2023 2:30 PM EDT His labs are similar/stable to last time he had them done. Nothing urgent. But If has questions we can setup telemed in the next 1-2 months to review. We do need to dsicuss lifestyle modification and perhaps some medications/supplments to help his sugars and lipids Please call and notify patient. Thanks, JUSTIN UNDERWOOD MD 10/25/23 [facility]04-04-[facility] Telephone encounter Note* Telephone Encounter - Susan Calabrese CMA - 10/24/2023 2:30 PM EDT Called patient and got him scheduled for appointment in December to go over results. [facility]03-25-2024 Miscellaneous Notes* Telephone Encounter - Chelsey Parker RN - 10/14/2023 1:17 PM EDT Patient called and states he had an appointment with Dr. Russell and was told that they will not do surgery on him as they will have to add more hardware. He was told the surgery would be too major. Hestates Dr. Russell recommended that he consider a SCS. Patient asks if this practice does SCS. He is informed that Dr. Pritchett does implant SCS. He states his guardian (father) is agreeable. Patient is informed he will need to discuss his options further at OV. Patient verbalized understanding and asksthat his caregiver, Marco, be called to set up appointment. * Telephone Encounter - BRUCE Servin - 10/14/2023 1:17 PM EDT Noted. Will need notes from the surgeon. documented in this encounterMarietta Memorial Hospital03-25-2024 Telephone encounter Note* Telephone Encounter - Chelsey Parker RN - 10/14/2023 1:17 PM EDT Patient called and states he had an appointment with Dr. Russell and was told that they will not do surgery on him as they will have to add more hardware. He was told the surgery would be too major. Hestates Dr. Russell recommended that he consider a SCS. Patient asks if this practice does SCS. He is informed that Dr. Pritchett does implant SCS. He states his guardian (father) is agreeable. Patient is informed he will need to discuss his options further at . Patient verbalized understanding and asksthat his caregiver, Marco, be called to set up appointment. [facility]03-25-[facility] Telephone encounter Note* Telephone Encounter - BRUCE Servin - 10/14/2023 1:17 PM EDT Noted. Will need notes from the surgeon. [facility]03-25-2024 Miscellaneous Notes* Telephone Encounter - Meghana Carrera CMA - 10/14/2023 8:19 AM EDT ED Outreach This documentation is being used for Transition of Care purposes: Yes/No: Yes ED Outreach Date: October 14, 2023 ED Outreach Method: COMMUNICATION METHOD: Telephone ED Outreach Attempt: first ED Outreach Outcome: Contacted Patient Name of ED Facility: [facility] Date of ED Discharge: 10/13/2023 Discharge Diagnosis: sciatica of right side ED Chief Complaint: hip pain Current Symptom Status: continuing- spoke with patient's multi care technician, hipaa verified. He has not spoken with [...] made aware of on-call provider and same dayappointment availability. Additional Comments: Patient will contact the office with additional concerns. documented in this encounterKettering Health DaytonApaja03-25-2024 Telephone encounter Note* Telephone Encounter - Meghana Carrera CMA - 10/14/2023 8:19 AM EDT ED Outreach This documentation is being used for Transition of Care purposes: Yes/No: Yes ED Outreach Date: October 14, 2023 ED Outreach Method: COMMUNICATION METHOD: Telephone ED Outreach Attempt: first ED Outreach Outcome: Contacted Patient Name of ED Facility: [facility] Date of ED Discharge: 10/13/2023 Discharge Diagnosis: sciatica of right side ED Chief Complaint: hip pain Current Symptom Status: continuing- spoke with patient's multi care technician, hipaa verified. He has not spoken with [...] made aware of on-call provider and same dayappointment availability. Additional Comments: Patient will contact the office with additional concerns. [facility] CenterPaquin Healthcare [id number] History of Present illness Narrative* BRUCE Servin - 10/03/2023 1:15 PM EDT [facility] [address] [place] [address] Patient: Laxmi Torres Sex: male : 1975 [...] is a chronic (2016 (or before per privacy attorney)) problem. The current episode started more than 1year ago. The problem occurs constantly. The problem has been gradually worsening since onset. The pain is present in the sacro-iliac and lumbar spine (right). The quality of the pain is described asstabbing, shooting, aching, burning and cramping. The pain [...] HEP, ice/heat/rest, Tylenol, Gabapentin, Meloxicam daily; Muscle relaxers/Percocetin past, IcyHot. DANA L1/2 on 09/25/19 w/no [...] Anxiety Autism Back problem Bipolar I disorder ([facility]) 01/17/2017 Chipped tooth upper molar chipped Chronic pain disorder Chronic sinusitis COVID-19 2019 Depression Developmental delay disorder Deviated nasal septum 07/30/2022 Diabetes mellitus, type 2 ([facility]) Disc displacement, lumbar 08/20/2019 DNS (deviated nasal septum) alcohol syndrome GERD (gastroesophageal reflux disease) Hemorrhoids without complication 08/12/2020 Hip pain, bilateral Hyperlipidemia Hypersomnia Hypertension Hypokalemia Impulse control disorder in adult Injury of back Intellectual functioning disability 07/02/2011 Leukopenia 03/04/2023 Low back pain Lumbar post-laminectomy syndrome 08/06/2011 Mild oppositional defiant disorder with angry or irritable mood Nasal congestion Nasal turbinate hypertrophy Neck pain Bogota's syndrome Obstructive sleep apnea syndrome 07/02/2011 Seizure disorder ([facility]) states in childhood, denies seizures as an adult Sleep apnea Smoker Spinal stenosis of lumbar region 08/2023 Tachycardia 08/12/2020 Past Surgical History: Procedure Laterality Date BACK SURGERY CHOLECYSTECTOMY INJECTION BLOCK EPIDURAL STEROID LUMBAR/SACRAL: left L 5,1 nroot Left 09/23/2020 Performed by Titus Pritchett MD at [facility] INJECTION BLOCK EPIDURAL STEROID LUMBAR/SACRAL: Left L 5/1 Nroot Left 10/28/2020 Performed by Titus Pritchett MD at [facility] INJECTION BLOCK NERVE MEDIAL BRANCH: bilat L 1/2 5/ Bilateral 04/14/2021 Performed by Titus Pritchett MD at [facility] INJECTION BLOCK NERVE MEDIAL BRANCH: bilat L 1/2 _ / Bilateral 03/03/2021 Performed by Titus Pritchett MD at [facility] INJECTION BLOCK SACROILIAC JOINT Bilateral 12/14/2022 Performed by Titus Pritchett MD at [facility] INJECTION BLOCK SACROILIAC JOINT Bilateral 11/03/2021 Performed by Titus Pritchett MD at [facility] INJECTION BLOCK SACROILIAC JOINT Bilateral 09/29/2021 Performed by Titus Pritchett MD at [facility] LUMBAR OR SACRAL EPIDURAL BLOCK WITH STEROIDS: L12 DANA N/A 09/25/2019 Performed by Titus Pritchett MD at [facility] LUMBAR OR SACRAL EPIDURAL BLOCK WITH STEROIDS: L12 DANA N/A 08/28/2019 Performed by Titus Pritchett MD at [facility] INJECTION SPINE TRANSFORAMINAL: right L 1,2 Nroot Right 09/13/2023 Performed by Titus Pritchett MD at [facility] NECK SURGERY Fusion C4-7 OPEN FUNCTIONAL RHINOPLASTY SEPTOPLASTY NOSE WITH REPAIR OF TURBINATE FRACTURE N/A 03/11/2023 Performed by Marlee Vazquez DO at [facility] RADIOFREQUENCY ABLATION SPINAL: left L 1/2 _ 11/19 Left 10/12/2022 Performed by Titus Pritchett MD at [facility] RADIOFREQUENCY ABLATION SPINAL: left L 1/2 _/ Left 06/23/2021 Performed by Titus Pritchett MD at [facility] RADIOFREQUENCY ABLATION SPINAL: left SI Left 12/01/2021 Performed by Titus Pritchett MD at [facility] RADIOFREQUENCY ABLATION SPINAL: right L 1/2 _ 11/19 Right 09/28/2022 Performed by Titus Pritchett MD at [facility] RADIOFREQUENCY ABLATION SPINAL: right L 07/23 _11/19 Right 06/05/2021 Performed by Titus Pritchett MD at [facility] RADIOFREQUENCY ABLATION SPINAL: right SI Right 12/15/2021 Performed by Titus Pritchett MD at [facility] REDUCTION TURBINATE Bilateral 03/11/2023 Performed by Marlee Vazquez DO at [facility] SURGERY Allergies Allergen Reactions Penicillins Hives [...] of thighs ) and numbness (posterior aspect ofthighs ). Negative for weakness. Hematological: Negative. Psychiatric/Behavioral: [...] during discussion, demonstrated appropriate cognitive reasoning and understandingof the medical condition by asking appropriate questions [...] spine and paraspinal musculature. Pain is elicited withflexion, extension, and lateral rotation of the lumbar [...] monitoring for toxicity We do not currently prescribeany controlled substance from this practice. The spine [...] BRUCE Servin 10/10/23 1204 documented [facility] History of Present illness Narrative* Justin Underwood MD - 09/25/2023 11:30 AM EST Images from the original note were not included. [address] [place] [id number] Patient: Laxmi Torres Date of : [...] with a stabbing intermittent nature of pain. Aggravatedon the exposure to light, relieved at rest. Of note new stressor at the facility with private branch exchange service adviser with worker's. Tylenol does help resolve the pain slightly. Does endorse some poor sleep with multiple waking. The following portions of the patient's history were reviewed and updated as appropriate: allergies, current medications, past family history, past medical history, past social history, past surgicalhistory and problem list. PHYSICAL EXAMINATION: Vitals: 09/25/23 [...] is no right CVA tenderness, left CVA tendernessor guarding. Musculoskeletal: Cervical back: Normal range of motion and neck supple. Neurological: Mental Status: He is alert and oriented to person, place, and time. Mental status is at baseline. ASSESSMENT/PLAN: Laxmi was seen today for medication. Diagnoses and all orders for this visit: Type 2 diabetes mellitus without complication, without long-term current use of insulin ([facility]) - CBC auto differential; Future - Comprehensive metabolic panel; Future - Lipid profile; Future - Hemoglobin A1c; Future - Valproic acid level, free; Future Parkinson's disease Schizoaffective disorder, depressive type ([facility]) Seizure disorder ([facility]) - Valproic acid level, free; Future Other orders - omeprazole (PriLOSEC) 20 mg capsule; Take 1 capsule (20 mg total) by mouth 2 (two) times a day asneeded (pain). Patient has extensive list of medications which were reviewed, they do match up to her [facility] EMR present. We did make some [...] condition. JUSTIN UNDERWOOD MD Family Medicine Physician [facility] 09/25/23 This note was completed with voice recognition software. The document was reviewed for errors however some may still be present. Please do not hesitate to contact/Epic ms the author to verify any questions/concerns. documented in this encounterMari[facility]02-26-[facility]24 Miscellaneous Notes* Telephone Encounter - Ofelia Barrientos RN - 09/16/2023 1:30 PM EST Pt had right L 1, 2 nerve root on 09/13/2023, his right leg pain helped greatly but pain returned today. Right hip, back of leg, right foot pain 8/10. Current treatment is tylenol 500 mg every once freddy while. Informed pt he is able to take tylenol x2 tab every 8 hours, add OTC pain relieving ointments/creams, patches, heat/ice. PVU, will start taking tylenol more frequent and has thermaworks pain relief cream to use. documented in this encounterM[facility]02-26-[facility]24 Telephone encounter Note* Telephone Encounter - Ofelia Barrientos RN - 09/16/2023 1:30 PM EST Pt had right L 1, 2 nerve root on 09/13/2023, his right leg pain helped greatly but pain returned today. Right hip, back of leg, right foot pain 8/10. Current treatment is tylenol 500 mg every once freddy while. Informed pt he is able to take tylenol x2 tab every 8 hours, add OTC pain relieving ointments/creams, patches, heat/ice. PVU, will start taking tylenol more frequent and has thermaworks pain relief cream to use. [facility]02-[facility] History of Present illness Narrative* BRUCE Servin - 09/03/2023 1:45 PM EST [facility] [address] [place] [address] Patient: Laxmi Torres Sex: male : 1975 [...] is a chronic (2016 (or before per privacy attorney)) problem. The current episode started more than 1year ago. The problem occurs constantly. The problem has been gradually worsening since onset. The pain is present in the sacro-iliac and lumbar spine (right). The quality of the pain is described asstabbing, shooting, aching, burning and cramping. The pain [...] obesity and sedentary lifestyle (osteoarthritis). He has triedice, heat, analgesics, home exercises, muscle relaxant, NSAIDs and walking (PT (06/2021-Jul 2022), HEP, ice/heat/rest, Tylenol, Gabapentin, Meloxicam daily; Muscle relaxers/Percocet in past, IcyHot. DANA L1/2 on 09/25/19 w/no relief. Back surg 12/2019 w/ mod relief. ., flexeril, lidocaine, toradol) forthe symptoms. The treatment provided mild (Left L5, S1 NRI on 10/28/2020 w/100% relief of back & leg pain. ) relief. The effect of pain on patient's ADLS: Moderate Impairment. Past Medical History: Diagnosis Date Abnormal gait 07/02/2011 Acute pancreatitis 08/12/2020 Allergic rhinitis Anxiety Autism Back problem Bipolar I disorder ([facility]) 01/17/2017 Chipped tooth upper molar chipped Chronic pain disorder Chronic sinusitis COVID-19 2019 Depression Developmental delay disorder Deviated nasal septum 07/30/2022 Diabetes mellitus, type 2 ([facility]) Disc displacement, lumbar 08/20/2019 DNS (deviated nasal [...] Obstructive sleep apnea syndrome 07/02/2011 Seizure disorder ([facility]) states in childhood, denies seizures as an adult Sleep apnea Smoker Tachycardia 08/12/2020 Past Surgical History: Procedure Laterality Date BACK SURGERY CHOLECYSTECTOMY INJECTION BLOCK EPIDURAL STEROID LUMBAR/SACRAL: left L 5,1 nroot Left 09/23/2020 Performed by Titus Pritchett MD at [facility] INJECTION BLOCK EPIDURAL STEROID LUMBAR/SACRAL: Left L / Nroot Left 10/28/2020 Performed by Titus Pritchett MD at [facility] INJECTION BLOCK NERVE MEDIAL BRANCH: bilat L 1/2 11/19 Bilateral 04/14/2021 Performed by Titus Pritchett MD at [facility] INJECTION BLOCK NERVE MEDIAL BRANCH: bilat L 1/2 _ 11/19 Bilateral 03/03/2021 Performed by Titus Pritchett MD at [facility] INJECTION BLOCK SACROILIAC JOINT Bilateral 12/14/2022 Performed by Titus Pritchett MD at [facility] INJECTION BLOCK SACROILIAC JOINT Bilateral 11/03/2021 Performed by Titus Pritchett MD at [facility] INJECTION BLOCK SACROILIAC JOINT Bilateral 09/29/2021 Performed by Titus Pritchett MD at [facility] INJECTION LUMBAR OR SACRAL EPIDURAL BLOCK WITH STEROIDS: L12 DANA N/A 09/25/2019 Performed by Titus Pritchett MD at [facility] LUMBAR OR SACRAL EPIDURAL BLOCK WITH STEROIDS: L12 DANA N/A 08/28/2019 Performed by Titus Pritchett MD at [facility] NECK SURGERY Fusion C4-7 OPEN FUNCTIONAL RHINOPLASTY SEPTOPLASTY NOSE WITH REPAIR OF TURBINATE FRACTURE N/A 03/11/2023 Performed by Marlee Vazquez DO at [facility] RADIOFREQUENCY ABLATION SPINAL: left L /2 _ 11/19 Left 10/12/2022 Performed by Titus Pritchett MD at [facility] RADIOFREQUENCY ABLATION SPINAL: left L / _11/19 Left 06/23/2021 Performed by Titus Pritchett MD at [facility] RADIOFREQUENCY ABLATION SPINAL: left SI Left 12/01/2021 Performed by Titus Pritcehtt MD at [facility] RADIOFREQUENCY ABLATION SPINAL: right L /2 _ 11/19 Right 09/28/2022 Performed by Titus Pritchett MD at [facility] RADIOFREQUENCY ABLATION SPINAL: right L /2 _11/19 Right 06/05/2021 Performed by Titus Pritchett MD at [facility] RADIOFREQUENCY ABLATION SPINAL: right SI Right 12/15/2021 Performed by Titus Pritchett MD at [facility] REDUCTION TURBINATE Bilateral 03/11/2023 Performed by Marlee Vazquez DO at [facility] Allergies Allergen Reactions Penicillins Hives Unknown reaction [...] of thighs ) and numbness (posterior aspect ofthighs ). Negative for weakness. Hematological: Negative. Psychiatric/Behavioral: [...] during discussion, demonstrated appropriate cognitive reasoning and understandingof the medical condition by asking appropriate questions [...] spine and paraspinal musculature. Pain is elicited withflexion, extension, and lateral rotation of the lumbar [...] procedure was described in detail to the patientas well as the potential benefits of pain [...] monitoring for toxicity We do not currently prescribeany controlled substance from this practice. Treatment plans [...] as a result. Additional consideration will need callie given to timing the procedure early in [...] BRUCE Servin 09/03/23 1516 documented in this encounterMarietta [facility]02-13-2024 Instructions* Patient Instructions* Abril Durán CNA - 09/03/2023 1:45 PM EST Epidural Steroid Injection (DANA) / Nerve Root Injection / Nerve Block These procedure(s) involve the injection of a steroid and anesthetic into the epidural space or thenerve sheath that is both diagnostic and potentially therapeutic for alleviating discomfort of the legs and arms secondary to compression of the respective nerves due to bulging discs, bone spurs andother potential causes. Steroids are potent anti-inflammatory drugs [...] a safety precaution, you must have a line haul truck driver after a lumbar nerve root injection, [...] take you to the nearest emergency room. Tellthe emergency room staff that you recently had [...] it back to normal. documented in this encounterMarietta [facility]02-08-2024 History of Present illness Narrative* Dionne Barlow DPM - 08/29/2023 1:30 PM EST Images from the original note were not [...] understanding. Dionne Barlow DPM documented in this [facility]02-08-2024 Instructions* Patient Instructions* Dionne Barlow DPM - 08/29/2023 1:30 PM EST As noted documented in this [facility]02-01-2024 Miscellaneous Notes* Telephone Encounter - Chelsey Parker RN - 08/22/2023 2:46 PM EST Call received from patient informing this office that he is scheduled for MRI Saturday08/26/2023. Patient asks business writer to call caregiver, Flory, to schedule follow up appointment.. Call placed to Flory and follow up appointment was made. * Telephone Encounter - Chelsey Parker RN - 08/22/2023 2:46 PM EST Patient called to inform this office that he had his MRI today. Patient is informed that he is scheduled for follow up appointment September 03 at 1:45. Patient verbalized understanding. documented in this encounterM[facility]02-01-2024 Telephone encounter Note* Telephone Encounter - Chelsey Parker RN - 08/22/2023 2:46 PM EST Call received from patient informing this office that he is scheduled for MRI Saturday08/26/2023. Patient asks business writer to call caregiver, Flory, to schedule follow up appointment.. Call placed to Flory and follow up appointment was made. [facility]02-[facility] Telephone encounter Note* Telephone Encounter - Chelsey Parker RN - 08/22/2023 2:46 PM EST Patient called to inform this office that he had his MRI today. Patient is informed that he is scheduled for follow up appointment September 03 at 1:45. [facility] verbalized understanding. [facility] Diagnosis Type 2 diabetes mellitus without complication, without long-term current use of insulin ([facility])- Primary Dermatophytosis of nail Dystrophic nail Other specified disease of nail Pain around toenail [facility] Diagnosis Parkinson's disease (CMS-HCC)- Primary Type 2 diabetes mellitus treated without insulin (CMS-HCC) Disc displacement, lumbar Displacement of lumbar intervertebral disc without myelopathy Preop examination- Primary Unspecified pre-operative examination Hypertension, unspecified type Type 2 diabetes mellitus without complication, without long-term current use of insulin (CMS-HCC) [facility]* Diagnosis Preop examination- Primary Unspecified pre-operative examination Hypertension, unspecified type Type 2 diabetes mellitus without complication, without long-term current use of insulin ([facility]) [facility]* Diagnosis Disc displacement, lumbar Displacement of lumbar intervertebral disc without myelopathy Type 2 diabetes mellitus without complication, without long-term current use of insulin ([facility]) [facility]* Diagnosis Hypertriglyceridemia- Primary Pure hyperglyceridemia Hypercholesteremia Pure hypercholesterolemia [facility]* Diagnosis Primary cough headache Disc displacement, lumbar Displacement of lumbar intervertebral disc without myelopathy Type 2 diabetes mellitus without complication, without long-term current use of insulin ([facility]) [facility]* Diagnosis Lumbar post-laminectomy syndrome- Primary Postlaminectomy syndrome, lumbar region [facility]* Diagnosis Anxiety attack- Primary Panic disorder without agoraphobia [facility]* Diagnosis Disc displacement, lumbar Displacement of lumbar intervertebral disc without myelopathy [facility]* Diagnosis Disc displacement, lumbar Displacement of lumbar intervertebral disc without myelopathy [facility]* Diagnosis Disc displacement, lumbar Displacement of lumbar intervertebral disc without myelopathy [facility]* Diagnosis Spinal stenosis of lumbar region with neurogenic claudication- Primary Spinal stenosis of lumbar region- Primary Spinal stenosis of lumbar region with neurogenic claudication [facility]* Diagnosis Lumbar post-laminectomy syndrome- Primary Postlaminectomy syndrome, lumbar region Parkinson's disease ([facility])- Primary Type 2 diabetes mellitus treated without insulin ([facility]) Type 2 diabetes mellitus without complication, without long-term current use of insulin ([facility]) Lumbar post-laminectomy syndrome Postlaminectomy syndrome, lumbar region [facility]* Diagnosis Lumbar post-laminectomy syndrome- Primary Postlaminectomy syndrome, lumbar region Disc displacement, lumbar Displacement of lumbar intervertebral disc without myelopathy Lumbar post-laminectomy syndrome Postlaminectomy syndrome, lumbar region [facility]* Diagnosis Type 2 diabetes mellitus without complication, without long-term current use of insulin ([facility])- Primary Parkinson's disease ([facility]) Schizoaffective disorder, depressive type ([facility]) Schizoaffective disorder, unspecified condition Seizure disorder ([facility]) Unspecified epilepsy without mention of intractable epilepsy [facility]* Diagnosis Spinal stenosis of lumbar region with neurogenic claudication- Primary [facility]* Diagnosis Disc displacement, lumbar- Primary Displacement of lumbar intervertebral disc without myelopathy [facility]* Diagnosis Disc displacement, lumbar Displacement of lumbar intervertebral disc without myelopathy [facility] Diagnosis Disc displacement, lumbar Displacement of lumbar intervertebral disc without myelopathy [facility]* Diagnosis Lumbar post-laminectomy syndrome- Primary Postlaminectomy syndrome, lumbar region Spinal stenosis of lumbar region with neurogenic claudication [facility]* Diagnosis MARK (obstructive sleep apnea)- Primary Obstructive sleep apnea (adult) (pediatric) Primary cough headache Episodic tension-type headache, not intractable Tobacco use [facility]* Diagnosis Postlaminectomy syndrome of lumbar region- Primary Postlaminectomy syndrome, lumbar region [facility]* Diagnosis Disc displacement, lumbar Displacement of lumbar intervertebral disc without myelopathy [facility]* Diagnosis Dysuria- Primary documented [facility]* Diagnosis Prophylactic antibiotic- Primary Encounter for long-term (current) use of antibiotics documented [facility]* Diagnosis Postlaminectomy syndrome of lumbar region- Primary Postlaminectomy syndrome, lumbar region [facility]* Diagnosis Disc displacement, lumbar- Primary Displacement of lumbar intervertebral disc without myelopathy Type 2 diabetes mellitus without complication, without long-term current use of insulin ([facility]) Obesity, morbid ([facility]) Morbid obesity Hypercholesteremia Pure hypercholesterolemia Immunization counseling Encounter for immunization [facility]* Diagnosis Disc displacement, lumbar Displacement of lumbar intervertebral disc without myelopathy documented [facility]* Diagnosis Lumbar post-laminectomy syndrome- Primary Postlaminectomy syndrome, lumbar region documented [facility]* Diagnosis Hypertriglyceridemia Pure hyperglyceridemia documented [facility]* Diagnosis Disc displacement, lumbar Displacement of lumbar intervertebral disc without myelopathy [facility]* Diagnosis Parkinson's disease ([facility])- Primary Type 2 diabetes mellitus treated without insulin ([facility]) Type 2 diabetes mellitus without complication, without long-term current use of insulin ([facility]) [facility]* Diagnosis Parkinson's disease ([facility] [facility] Primary Type 2 diabetes mellitus treated without insulin ([facility]) Chronic GERD Seasonal allergies Allergic rhinitis, cause unspecified Left shoulder pain, unspecified chronicity [facility] Diagnosis Left shoulder pain, unspecified chronicity Left shoulder pain, unspecified chronicity [facility] Diagnosis Lumbar post-laminectomy syndrome- Primary Postlaminectomy syndrome, lumbar region [facility]* Diagnosis Disc displacement, lumbar Displacement of lumbar intervertebral disc without myelopathy [facility]* Diagnosis Gastroesophageal reflux disease with esophagitis without hemorrhage- Primary [facility]* Diagnosis Trapezius muscle strain, left, initial encounter- Primary [facility]* Diagnosis Trapezius muscle strain, left, initial encounter- Primary [facility]* Diagnosis Acute bronchitis, unspecified organism- Primary Acute non-recurrent frontal sinusitis [facility]* Diagnosis Acute bronchitis, unspecified organism- Primary Acute non-recurrent frontal sinusitis Postlaminectomy syndrome of lumbar region- Primary Postlaminectomy syndrome, lumbar region documented [facility]* Diagnosis Acute bronchitis, unspecified organism- Primary Acute non-recurrent frontal sinusitis Disc displacement, lumbar Displacement of lumbar intervertebral disc without myelopathy Hypertriglyceridemia Pure hyperglyceridemia [facility] Diagnosis Acute bronchitis, unspecified organism- Primary Acute non-recurrent frontal sinusitis Disc displacement, lumbar Displacement of lumbar intervertebral disc without myelopathy [facility]* Diagnosis Acute bronchitis, unspecified organism- Primary Acute non-recurrent frontal sinusitis Migraine without aura and with status migrainosus, not intractable- Primary Type 2 diabetes mellitus treated without insulin ([facility]) [facility] Diagnosis Acute bronchitis, unspecified organism- Primary Acute non-recurrent frontal sinusitis Type 2 diabetes mellitus without complication, without long-term current use of insulin ([facility]) [facility] Diagnosis Acute bronchitis, unspecified organism- Primary Acute non-recurrent frontal sinusitis Disc displacement, lumbar Displacement of lumbar intervertebral disc without myelopathy [facility]* Diagnosis Acute bronchitis, unspecified organism- Primary Acute non-recurrent frontal sinusitis Lumbosacral spondylosis without myelopathy- Primary Disorder of sacrum Disorders of sacrum Trochanteric bursitis of right hip [facility]* Diagnosis Acute bronchitis, unspecified organism- Primary Acute non-recurrent frontal sinusitis MARK (obstructive sleep apnea)- Primary Obstructive sleep apnea (adult) (pediatric) Chronic fatigue Other malaise and fatigue Snoring Other dyspnea and respiratory abnormality BMI 30.0-30.9,adult Disorder of sacrum Disorders of sacrum Trochanteric bursitis of right hip [facility]* Diagnosis Pityrosporum folliculitis- Primary [facility] Diagnosis Acute bronchitis, unspecified organism- Primary Acute non-recurrent frontal sinusitis Migraine without aura and with status migrainosus, not intractable- Primary Visual changes Anxiety Anxiety state, unspecified Disorder of sacrum Disorders of sacrum Trochanteric bursitis of right hip [facility]* Diagnosis Acute bronchitis, unspecified organism- Primary Acute non-recurrent frontal sinusitis Type 2 diabetes mellitus treated without insulin ([facility])- Primary Parkinson's disease ([facility]) Allergic conjunctivitis and rhinitis, unspecified laterality Disorder of sacrum Disorders of sacrum Trochanteric bursitis of right hip [facility]* Diagnosis Acute bronchitis, unspecified organism- Primary Acute non-recurrent frontal sinusitis MARK (obstructive sleep apnea)- Primary Obstructive sleep apnea (adult) (pediatric) documented [facility]* Diagnosis Acute bronchitis, unspecified organism- Primary Acute non-recurrent frontal sinusitis Type 2 diabetes mellitus treated without insulin ([facility])- Primary Parkinson's disease ([facility]) Disc displacement, lumbar Displacement of lumbar intervertebral disc without myelopathy [facility]* Diagnosis Acute bronchitis, unspecified organism- Primary Acute non-recurrent frontal sinusitis Type 2 diabetes mellitus treated without insulin ([facility])- Primary Parkinson's disease ([facility]) documented [facility]* Diagnosis Acute bronchitis, unspecified organism- Primary Acute non-recurrent frontal sinusitis Lumbar post-laminectomy syndrome- Primary Postlaminectomy syndrome, lumbar region Trochanteric bursitis of right hip [facility]* Diagnosis Acute bronchitis, unspecified organism- Primary Acute non-recurrent frontal sinusitis Cervical post-laminectomy syndrome- Primary Postlaminectomy syndrome, cervical region documented [facility]* Diagnosis Acute bronchitis, unspecified organism- Primary Acute non-recurrent frontal sinusitis Medicare annual wellness visit, subsequent- Primary Parkinson's disease ([facility]) Schizoaffective disorder, bipolar type ([facility]) Schizoaffective disorder, unspecified condition Seizure disorder ([facility]) Unspecified epilepsy without mention of intractable epilepsy Obesity, morbid ([facility]) Morbid obesity Type 2 diabetes mellitus without complication, without long-term current use of insulin ([facility]) Hyperlipidemia, unspecified hyperlipidemia type [facility]* Diagnosis Acute bronchitis, unspecified organism- Primary Acute non-recurrent frontal sinusitis Medicare annual wellness visit, subsequent- Primary Parkinson's disease ([facility]) Schizoaffective disorder, bipolar type ([facility]) Schizoaffective disorder, unspecified condition Seizure disorder ([facility]) Unspecified epilepsy without mention of intractable epilepsy Obesity, morbid ([facility]) Morbid obesity Type 2 diabetes mellitus without complication, without long-term current use of insulin ([facility]) Hyperlipidemia, unspecified hyperlipidemia type Migraine without aura and with status migrainosus, not intractable- Primary [facility]* Diagnosis Acute bronchitis, unspecified organism- Primary Acute non-recurrent frontal sinusitis Medicare annual wellness visit, subsequent- Primary Parkinson's disease ([facility]) Schizoaffective disorder, bipolar type ([facility]) Schizoaffective disorder, unspecified condition Seizure disorder ([facility]) Unspecified epilepsy without mention of intractable epilepsy Obesity, morbid ([facility]) Morbid obesity Type 2 diabetes mellitus without complication, without long-term current use of insulin ([facility]) Hyperlipidemia, unspecified hyperlipidemia type Migraine without aura and with status migrainosus, not intractable- Primary Intellectual functioning disability Unspecified mental retardation Bipolar I disorder ([facility]) Bipolar I disorder, most recent episode (or current) unspecified [facility] Diagnosis Acute bronchitis, unspecified organism- Primary Acute non-recurrent frontal sinusitis Medicare annual wellness visit, subsequent- Primary Parkinson's disease ([facility]) Schizoaffective disorder, bipolar type ([facility]) Schizoaffective disorder, unspecified condition Seizure disorder ([facility]) Unspecified epilepsy without mention of intractable epilepsy Obesity, morbid ([facility]) Morbid obesity Type 2 diabetes mellitus without complication, without long-term current use of insulin ([facility]) Hyperlipidemia, unspecified hyperlipidemia type Parkinson's disease ([facility])- Primary Type 2 diabetes mellitus without complication, without long-term current use of insulin ([facility]) Acute bronchitis, unspecified organism Hypertriglyceridemia Pure hyperglyceridemia Disc displacement, lumbar Displacement of lumbar intervertebral disc without myelopathy documented [facility] encounter [facility]ructionsNot [...] on filedocumented in this encounter [facility]* Attachments The following attachments cannot be sent through Care Everywhere. * Acute bronchitis in adults (Slovak) documented in [facility] System[facility]ructionsNot on file documented in this encounterPro[facility] SystemInstructionsNot on file documented in this encounterPro[facility] SystemInstructionsNot on file documented in this encounter[facility] SystemInstructionsNot on file documented in this encounter[facility] SystemInstructionsNot on file documented in this encounter[facility] SystemInstructionsNot on file documented in this encounter[facility] SystemInstructionsNot on file documented in this encounterPro[facility] Health SystemInstructionsNot on file documented in this encounterProMedica Health SystemInstructionsNot on file documented in this encounterProMedica Health SystemInstructionsNot on file documented in this encounterProMedica Health SystemInstructionsNot on file documented in this encounterProMedica Health SystemInstructionsNot on file documented in this encounterProMedica Health SystemInstructionsNot on file documented in this encounterPro[facility]ica Health SystemInstructionsNot on file documented in this encounterProMedica Health SystemInstructionsNot on file documented in this encounterProMedica Health SystemReason for referral (narrative)* Consultation (Routine) - Pending ReviewSpecialtyDiagnoses / ProceduresReferred By ContactReferred To ContactSleep Medicine / Pulmonary Medicine Diagnoses MARK (obstructive sleep apnea) Justin Underwood MD [address], [place] [address] Angelina Devlin, DO [address] [place] [address] Referral IDStatusReasonStart DateExpiration DateVisits RequestedVisits [id number] Review Specialty Services Required / [facility] Summary Purpose Family History No Family [...] Advanced Directives Records Found Reason for Referral SpecialtyDiagnoses / ProceduresReferred By ContactReferred To Contact Diagnoses Lumbar post-laminectomy syndrome Procedures Case request operating room: INSERTION STIMULATOR SPINAL CORD-TRIAL Guillaume Steve PA [address], [address] [place] [address] Referral IDStatusReasonStart DateExpiration DateVisits RequestedVisits [id number] Review/[id number] / ProceduresReferred By ContactReferred To Contact Diagnoses Spinal stenosis of lumbar region with neurogenic claudication Procedures Case request operating room: INJECTION SPINE TRANSFORAMINAL: right L12 Guillaume Steve PA [address], [address] [place] [id number] Referral IDStatusReasonStart DateExpiration DateVisits RequestedVisits [id number] Review/[id number] / ProceduresReferred By ContactReferred To Contact Diagnoses Disc displacement, lumbar Procedures Disability/Handicap Placard Kj, Muhamid M, MD [address] [place] [address] Referral IDStatusReasonStart DateExpiration DateVisits RequestedVisits [id number] Review/[id number] / ProceduresReferred By ContactReferred To Contact Diagnoses Postlaminectomy syndrome of lumbar region Procedures Case request operating room: INSERTION STIMULATOR SPINAL CORD Guillaume Steve PA [address] [place] [address] Referral IDStatusReasonStart DateExpiration DateVisits RequestedVisits [id number] Review/ Additional Source Comments (unrecognized sect ion and content) No Status Records FoundNo Status Records FoundNo Status Records FoundNo Status Records FoundNo Status Records FoundNo Status Records FoundNo Status Records FoundNo Status Records FoundNo Status Records FoundNo Status Records FoundNo Status Records FoundNo Status Records Found INFORMATION SOURCE (unrecogn ized section and content) DATE CREATED AUTHOR 01/14/2018 [facility] DATE CREATED AUTHOR AUTHOR'S ORGANIZ ATION 01/15/2018 [facility] DATE CREATED AUTHOR AUTHOR'S ORGANIZ ATION 11/23/2020 [facility] DATE CREATED AUTHOR AUTHOR'S ORGANIZ ATION 11/02/2021 [facility] DATE CREATED AUTHOR AUTHOR'S ORGANIZ ATION 12/23/2021 [facility] DATE CREATED AUTHOR AUTHOR'S ORGANIZ ATION 11/17/[address] [facility] DATE CREATED AUTHOR AUTHOR'S ORGANIZ ATION 11/29/2024 [facility] DATE CREATED AUTHOR AUTHOR'S ORGANIZ ATION 01/12/2025 [facility] DATE CREATED AUTHOR AUTHOR'S ORGANIZ ATION 02/02/2025 [facility] DATE CREATED AUTHOR AUTHOR'S ORGANIZ ATION 02/10/2025 [facility] DATE CREATED AUTHOR AUTHOR'S ORGANIZ ATION 05/08/2025 [facility] DATE CREATED AUTHOR AUTHOR'S ORGANIZ ATION 05/13/2025 [facility] Care Teams (unrecognized sec tion and content) Team MemberRelationshipSpecialtyStart DateEnd Date Justin Underwood MD [address] [place] [address] PCP - Generalmily Medicine08/29/23Team MemberRelationshipSpecialtyStart DateEnd Date Justin Underwood MD [address] [place] [address] PCP - [facility] Medicine08/29/23Team MemberRelationshipSpecialtyStart DateEnd Date Justin Underwood MD [address] [place] [address] PCP - GeneralInternal Medicine01/26/24 [facility] CCM Nurse - SignalLam12/17/23Team MemberRelationshipSpecialtyStart DateEnd Date Justin Underwood MD [address] [place] [address] PCP - GeneralInternal Medicine01/26/24 [facility] CCM Nurse - SignalLam12/17/23Team MemberRelationshipSpecialtyStart DateEnd Date Justin Underwood MD [address] [place] [address] PCP - GeneralInternal Medicine01/26/24 [facility] CCM Nurse - SignalLam12/17/23Team MemberRelationshipSpecialtyStart DateEnd Date Justin Underwood MD [address], [place] [address] PCP - GeneralInternal Medicine03/04/23Team MemberRelationshipSpecialtyStart Date End Date Justin Underwood MD [address], [place] [address] PCP - GeneralInternal Medicine03/04/23Team MemberRelationshipSpecialtyStart Date End Date Justin Underwood MD [address], [place] [address] PCP - GeneralInternal Medicine03/04/23Team MemberRelationshipSpecialtyStart Date End Date Justin Underwood MD [address], [place] [address] PCP - GeneralInternal Medicine03/04/23Team MemberRelationshipSpecialtyStart Date End Date Justin Underwood MD [address], [place] [address] PCP - GeneralInternal Medicine03/04/23 Bonny Gal [facility] Nurse - SignalLamp5Team MemberRelationshipSpecialtyStart DateEnd Date Justin Underwood MD [address], [place] [address] PCP - GeneralInternal Medicine03/04/23Team MemberRelationshipSpecialtyStart Date End Date Justin Underwood MD [address], [place] [address] PCP - GeneralInternal Medicine03/04/23 [facility] Nurse - SignalLam12/17/23Team MemberRelationshipSpecialtyStart DateEnd Date Justin Underwood MD [address], [place] [address] PCP - GeneralInternal Medicine03/04/23Team MemberRelationshipSpecialtyStart Date End Date Justin Underwood MD [address], [place] [address] PCP - GeneralInternal Medicine03/04/23 [facility] Nurse - SignalLamp5Team MemberRelationshipSpecialtyStart DateEnd Date Justin Underwood MD [address], [place] [address] PCP - GeneralInternal Medicine03/04/23Team MemberRelationshipSpecialtyStart Date End Date Justin Underwood MD [address], [place] [address] PCP - GeneralInternal Medicine03/04/23 [facility] Nurse - SignalLamp5Team MemberRelationshipSpecialtyStart DateEnd Date Justin Underwood MD [address], [place] [address] PCP - GeneralInternal Medicine03/04/23Team MemberRelationshipSpecialtyStart Date End Date Justin Underwood MD [address], [place] [address] PCP - GeneralInternal Medicine03/04/23 [facility] Nurse - SignalLam12/17/23Team MemberRelationshipSpecialtyStart DateEnd Date Justin Underwood MD [address], [place] [address] PCP - GeneralInternal Medicine03/04/23 [facility] Nurse - SignalLam12/17/23Team MemberRelationshipSpecialtyStart DateEnd Date Justin Underwood MD [address], [place] [address] PCP - GeneralInternal Medicine03/04/23Team MemberRelationshipSpecialtyStart Date End Date Justin Underwood MD [address], [place] [address] PCP - GeneralInternal Medicine01/26/24 [facility] Nurse - SignalLam12/17/23Team MemberRelationshipSpecialtyStart DateEnd Date Justin Underwood MD [address], [place] [address] PCP - GeneralInternal Medicine03/04/23Team MemberRelationshipSpecialtyStart Date End Date Justin Underwood MD [address], [place] [address] PCP - GeneralInternal Medicine03/04/23Team MemberRelationshipSpecialtyStart Date End Date Justin Underwood MD [address], [place] [address] PCP - GeneralInternal [facility]03/04/23Team MemberRelationshipSpecialtyStart Date End Date Justin Underwood MD [address], [place] [address] PCP - GeneralInternal [facility]01/26/24 [facility]12/17/23Te MemberRelationshipSpecialtyStart DateEnd Date Justin Underwood MD [address], [place] [address] PCP - [facility]03/04/23Team MemberRelationshipSpecialtyStart Date End Date Justin Underwood MD [address], [place] [address] PCP - GeneralInternal [facility]03/04/23Team MemberRelationshipSpecialtyStart Date End Date Justin Underwood MD [address], [place] [address] PCP - GeneralInternal [facility]03/04/23Team MemberRelationshipSpecialtyStart Date End Date Justin Underwood MD [address], [place] [address] PCP - GeneralInternal Medicine01/26/24 [place] [phone] (Work) [facility] Nurse - SignalLamp5Team MemberRelationshipSpecialtyStart DateEnd Date Justin Underwood MD [address], [place] [address] PCP - GeneralInternal Medicine01/26/24 [facility] Nurse - SignalLamp5Team MemberRelationshipSpecialtyStart DateEnd Date Justin Underwood MD [address], [place] [address] PCP - GeneralInternal [facility]01/26/24 [facility] Nurse - Signal[employer]amp5Team MemberRelationshipSpecialtyStart DateEnd Date Justin Underwood MD [address], [place] [address] [facility] - [facility]01/26/24 [facility] Nurse - SignalLamp5Team MemberRelationshipSpecialtyStart DateEnd Date Justin Underwood MD [address], [place] [address] PCP - [facility]01/26/24 [facility] Nurse - SignalLamp5Team MemberRelationshipSpecialtyStart DateEnd Date Justin Underwood MD [address], [place] [address] PCP - GeneralInternal Medicine01/26/24 [place] [phone] (Work) [facility] Nurse - SignalLamp5Team MemberRelationshipSpecialtyStart DateEnd Date Justin Underwood MD [address], [place] [address] PCP - GeneralInternal Medicine01/26/24 [facility] Nurse - Signal[employer]5Team MemberRelationshipSpecialtyStart DateEnd Date Justin Underwood MD [address], [place] [address] PCP - GeneralInternal [facility]01/26/24 [facility] Nurse - SignalLamp5Team MemberRelationshipSpecialtyStart DateEnd Date Justin Underwood MD [address], [place] [address] PCP - [facility]01/26/24 [facility] Nurse - SignalLamp5Team MemberRelationshipSpecialtyStart DateEnd Date Justin Underwood MD [address], [place] [address] PCP - [facility]01/26/24 [facility] Nurse - SignalLamp5Team MemberRelationshipSpecialtyStart DateEnd Date Justin Underwood MD [address], [place] [address] PCP - GeneralInternal Medicine01/26/24 [place] [phone] (Work) [facility] Nurse - SignalLamp5Team MemberRelationshipSpecialtyStart DateEnd Date Justin Underwood MD [address], [place] [address] PCP - GeneralInternal Medicine01/26/24 [facility] Nurse - SignalL[employer]5Team MemberRelationshipSpecialtyStart DateEnd Date Justin Underwood MD [address], [place] [address] PCP - GeneralInternal [facility]01/26/24 [facility] Nurse - SignalLamp5Team MemberRelationshipSpecialtyStart DateEnd Date Justin Underwood MD [address], [place] [address] PCP - [facility]01/26/24 [facility] [place] [facility] Nurse - SignalLamp5Team MemberRelationshipSpecialtyStart DateEnd Date Justin Underwood MD [address], [place] [address] [facility]CP - [facility]01/26[facility]24 [facility] [place] [facility] Nurse - SignalLamp5Team MemberRelationshipSpecialtyStart DateEnd Date Justin Underwood MD [address], [place] [address] PCP - GeneralInternal Medicine01/26/24 [place] [phone] (Work) [facility] Nurse - SignalLamp5Team MemberRelationshipSpecialtyStart DateEnd Date Justin Underwood MD [address], [place] [address] PCP - GeneralInternal Medicine01/26/24 [facility] [place] [facility] Nurse - SignalLamp5Team MemberRelationshipSpecialtyStart DateEnd Date Justin Underwood MD [address], [place] [address] PCP - GeneralInternal [facility]01/26/24 [facility] [place] [facility] Nurse - SignalLamp5Team MemberRelationshipSpecialtyStart DateEnd Date Justin Underwood MD [address], [place] [address] [facility] - [facility]01/26/24 [facility] [place] [facility] Nurse - SignalLamp5Team MemberRelationshipSpecialtyStart DateEnd Date Justin Underwood MD [address], [place] [address] PCP - [facility]01/26/24 [facility] [place] [facility] Nurse - SignalLamp5Team MemberRelationshipSpecialtyStart DateEnd Date Justin Underwood MD [address], [place] [address] PCP - GeneralInternal Medicine01/26/24 [facility] [place] [facility] Nurse - SignalLam12/17/23Team MemberRelationshipSpecialtyStart DateEnd Date Justin Underwood MD PCP - [facility]08/29/23Team MemberRelationshipSpecialtyStart DateEnd Date Justin Underwood MD [address], [place] [address] PCP - GeneralInternal Medicine01/26/24 [facility] [place] [facility] Nurse - SignalLam12/17/23Team MemberRelationshipSpecialtyStart DateEnd Date Justin Underwood MD [address], [place] [address] PCP - GeneralInternal Medicine01/26/24 [facility] [place] [facility] Nurse - SignalLam12/17/23Team MemberRelationshipSpecialtyStart DateEnd Date Justin Underwood MD [address], [place] [address] PCP - GeneralInternal Medicine01/26/24 [facility] [place] [facility] Nurse - SignalLam12/17/23Team MemberRelationshipSpecialtyStart DateEnd Date Justin Underwood MD [address], [place] [address] PCP - GeneralInternal Medicine01/26/24 [facility] [place] [facility] Nurse - SignalLam12/17/23Team MemberRelationshipSpecialtyStart DateEnd Date Justin Underwood MD [address], [place] [address] PCP - GeneralInternal Medicine01/26/24 [facility] [place] [facility] Nurse - SignalLamp5Team MemberRelationshipSpecialtyStart DateEnd Date Justin Underwood MD [address], [place] [address] PCP - GeneralInternal Medicine01/26/24 [facility] [place] [facility] Nurse - SignalLamp5Team MemberRelationshipSpecialtyStart DateEnd Date Justin Underwood MD [address], [place] [address] PCP - GeneralInternal Medicine01/26/24 [facility] [place] [facility] Nurse - SignalLam12/17/23Team MemberRelationshipSpecialtyStart DateEnd Date Justin Underwood MD [address], [place] [address] PCP - GeneralInternal Medicine01/26/24 [facility] [place] [facility] Nurse - SignalLamp5Team MemberRelationshipSpecialtyStart DateEnd Date Justin Underwood MD [address], [place] [address] PCP - GeneralInternal Medicine01/26/[phone] (Work) [facility] Nurse - SignalLam12/17/23Team MemberRelationshipSpecialtyStart DateEnd Date Justin Underwood MD [address] [place], [place] [id number] PCP - GeneralInternal Medicine01/26/24 Yani Dillon LPN [facility] Nurse - AtnjhrJikh42/24/25Team MemberRelationshipSpecialtyStart DateEnd Date Justin Underwood MD [address] [place] [address] PCP - GeneralInternal Medicine01/26/24 Yani Dillon LPN [facility] Nurse - PcfvjdCzwt74/24/25 Reason for Visit (unrecogniz ed section and content) ReasonCommentsDM Foot CareReasonOnset DateCommentsMed Acywmf5707/24/2024Reason Onset DateCommentsSCS Battery Vjkwusji96/03/2025ReasonOnset DateCommentsMed Lbjjkb384ReasonOnset DateCommentsMed Vimaci024ReasonOnset Date CommentsMed Ijxtuh2108/15/2023easonCommentsBack PainReasonOnset DateCommentsMed Oatisz914ReasonCommentsmedicationReasonCommentsBack PainReasonOnset Date CommentsEr Follow-up4ReasonOnset DateCommentsMed Kvkxrt484Reason Onset DateCommentsMed Pgbleq444ReasonCommentsAnnual ExamMAWReasonOnset DateCommentsEr Follow-up4ReasonCommentsHypertensionDoes check at home every morning. Been good.ReasonOnset DateCommentsMed Jdeanp884Reason CommentsBack PainShoulder PainLeftReasonOnset DateCommentsMed Gbrtqz5009/28/2024 ReasonCommentsHeadacheReasonOnset OkxyCdmoanxtVdkpmibz58/18/2025ReasonComments Follow-upSinus infection. Finished meds last night. Not improving.ReasonOnset DateCommentsMed Gpnvbt1910/28/2024ReasonOnset DateCommentsEr Follow-up11/23/2024 ReasonOnset DateCommentsNew Wdvtalp4711/23/2024ReasonOnset DateCommentsMed Refill 11/24/2024ReasonOnset GedpAtucahgoRjvmrbc20/08/2025ReasonCommentsFollow-upReason Onset DateCommentsMedication Formulary Bwfkylofr07/28/2025ReasonOnset Date CommentsMed Nwscde8812/28/2024ReasonCommentsBack PainNo complaints or pain since SCS reprogramReasonOnset DateCommentsEr Follow-up01/25/2025ReasonOnset Date CommentsMed Uwmnch0001/26/2025ReasonCommentsNew PatientNew sleep Sleep studies 2019Was on PAP machine but does not have it anymoreSleeping ProblemDifficulty sleeping at nightSleeping during the daySpecialtyDiagnoses / ProceduresReferred By ContactReferred To ContactSleep Medicine / Pulmonary Medicine Diagnoses MARK (obstructive sleep apnea) Justin Underwood MD [address] [address] Phone: tel: fax: Angelina Devlin, [address] [place] [address] Phone: tel: fax: Referral IDStatusReasonStart DateExpiration DateVisits RequestedVisits [id number] Review Specialty Services Required [id number]-mhKrywgjt is here today for follow up on dx: Migraine without aura and with status migrainosus, not intractableReason Onset DateCommentsMedication Cfwqrib6002/15/2025ReasonOnset DateComments RIZATRIPTAN WYGOJVAR69/29/2025ReasonCommentsBack PainHip PainReasonOnset Date CommentsMedication Myqrlvn1803/26/2025ReasonCommentsBack PainShoulder PainNeck PainReasonCommentsmedicare annual wellnessReasonOnset DateCommentsEr Follow-up 04/26/2025ReasonCommentsFollow-upPatient is here today for follow up on dx: Migraine without aura and with status migrainosus, not intractable FOR RECORDS PERTAINING TO PATIENTS WHO ARE [...] BE BASED ON THE PRIMARY CLINICAL RECORDS. [employer] provides no warranty or guarantee of the accuracy or completeness of information in this document.
== END 2025-06-07 20:32 | disposition home or self-care (01) ==
PROVIDERS: Emergency Provider Emergency Medicine; PCP Student in an Organized Health Care Education/Training Program
DX: S00.83XA Contusion of other part of head, initial encounter (principal); W22.09XA Striking against other stationary object, initial encounter
CPT/HCPCS: 70486; 99284